=== PATIENT | female | born 1950 | race Caucasian/White ===

== ENCOUNTER → 2016-12-24 | Outpatient (CLI) | payer OTHER, MEDICARE ==
[~2016-12-24] MED LIST: ACET-732 PO; ALLO100T51 PO; AMLO5TAB2 PO; ATEN50TA PO; CALC0.5C2 PO; FURO-33 PO; HYDR-4074 PO; METO10TA PO; OMEP-122 PO; ROSU10TA PO; [UNRECOGNIZED DRUG - CODE] TP
[2016-12-24 09:50] LABS: BASOPHILS % (AUTO) 0.2 % (0-2); EOSINOPHILS # (AUTO) 0.4 T/MM3 (0-0.5); EOSINOPHILS % (AUTO) 4.1 % (0-4); HGB - HEMOGLOBIN 13.2 GM/DL (12-16); IMMATURE GRANULOCYTE # (AUTO) 0.02 T/MM3 (0.00-0.03); IMMATURE GRANULOCYTE % (AUTO) 0.2 % (0.0-0.5); LYMPHOCYTES % (AUTO) 35.6 % (23-45); MEAN CORPUSCULAR HGB 30.8 UUG (26-34); MEAN CORPUSCULAR HGB CONC(MCHC 32.2 GM/DL (31-37); MEAN CORPUSCULAR VOLUME 95.8 UM3 (80-100); MEAN PLATELET VOLUME 11.2 UM3 (9.4-12.4); MONOCYTES # (AUTO) 0.8 T/MM3 (0-0.8); MONOCYTES % (AUTO) 9.3 % (0-9.0); NEUTROPHILS #(AUTO)-ABSOLUTE 4.3 T/MM3 (1.8-7.7); NEUTROPHILS % (AUTO) 50.6 % (33-66); RED BLOOD COUNT 4.28 M/MM3 (4.00-5.20); WBC - WHITE BLOOD COUNT 8.5 T/MM3 (4.5-11.0)
[2016-12-24 09:57] LABS: HEMOGLOBIN A1C 7.2 % (6.1-7.9)
[2016-12-24 09:59] LABS: ALBUMIN 3.9 G/DL (3.5-5.0); ALBUMIN/GLOBULIN RATIO 1.1 RATIO (1.1-2.2); ALKALINE PHOSPHATASE 167 U/L (38-126); ALT (SGPT) 30 U/L (9-52); ANION GAP 13 MEQ/L (5-15); AST (SGOT) 22 U/L (14-36); BUN/CREATININE RATIO 24 RATIO (6-26); CALCIUM 8.8 MG/DL (8.4-10.2); CHLORIDE 110 MEQ/L (98-107); CO2 - CARBON DIOXIDE 22 MEQ/L (22-30); CREATININE 2.5 MG/DL (0.7-1.2); GLOMERULAR FILTRATION RATE 19; GLUCOSE 152 MG/DL (65-110); POTASSIUM 4.7 MEQ/L (3.6-5); SODIUM 145 MEQ/L (134-144); TOTAL PROTEIN 7.6 G/DL (6.3-8.2)
[2016-12-24 10:08] LABS: PROBNP 350 PG/ML (0-175)
== END ==
LOC: LABN 12-23 21:00
PROVIDERS: ATTEND Family Medicine
DX: I10 Essential (primary) hypertension (principal); E11.9 Type 2 diabetes mellitus without complications; N18.4 Chronic kidney disease, stage 4 (severe)
CPT/HCPCS: 80053; 83036; 83880; 85025

== ENCOUNTER → 2016-12-30 | Outpatient (CLI) | payer OTHER, MEDICARE ==
[~2016-12-30] MED LIST changes: +BISA-72 PO; +FURO-153 PO; +METO-230 PO; +ONDA8TAB5; +SENN8.6T12 PO; +SERT100T PO; +TRAM50TA4 PO
[2016-12-30 16:26] LABS: ANION GAP 13 MEQ/L (5-15); BUN/CREATININE RATIO 22 RATIO (6-26); CALCIUM 9.3 MG/DL (8.4-10.2); CHLORIDE 110 MEQ/L (98-107); CO2 - CARBON DIOXIDE 23 MEQ/L (22-30); CREATININE 2.2 MG/DL (0.7-1.2); GLOMERULAR FILTRATION RATE 22; GLUCOSE 144 MG/DL (65-110); POTASSIUM 5.4 MEQ/L (3.6-5); SODIUM 146 MEQ/L (134-144)
[2016-12-30 16:35] LABS: PROBNP 573 PG/ML (0-175)
== END ==
LOC: LABN 16:12 → EDSTATUS 01-12 13:33
PROVIDERS: ATTEND Family Medicine
DX: I10 Essential (primary) hypertension (principal); M62.81 Muscle weakness (generalized)
CPT/HCPCS: 80048; 83880

== ENCOUNTER → 2017-01-02 | Outpatient (CLI) | payer OTHER, MEDICARE ==
[~2017-01-02] MED LIST changes: -BISA-72 PO; -FURO-153 PO; -METO-230 PO; -ONDA8TAB5; -SENN8.6T12 PO; -SERT100T PO; -TRAM50TA4 PO
[2017-01-02 09:42] LABS: BLOOD, URINE 1+ (NEGATIVE); COLOR,URINE YELLOW (YELLOW); LEUKOCYTE ESTERASE ,URINE 2+ (NEGATIVE); NITRITE,URINE POSITIVE (NEGATIVE); UROBILINOGEN,URINE 0.2 EU/DL (NORMAL)
[2017-01-02 10:01] LABS: BACTERIA,URINE 3+ (NEGATIVE); WBC CLUMPS,URINE MODERATE; WBC,URINE 30-50 /HPF (0-5)
== END ==
LOC: LABN 09:32
PROVIDERS: ATTEND Family Medicine
DX: I12.9 Hypertensive chronic kidney disease with stage 1 through stage 4 chronic kidney disease, or unspecified chronic kidney disease (principal); N18.4 Chronic kidney disease, stage 4 (severe)
CPT/HCPCS: 81001; 87077; 87086; 87186

== ENCOUNTER 2017-01-14 07:35 | Inpatient (IN) | payer MEDICARE, OTHER ==
[2017-01-14] VITALS (8 sets, daily range): BP systolic 112–146; BP diastolic 63–68; PULSE 73–91; RESP 18–24; TEMP 98.5–99.7; O2SAT 91–100; Ht 167.6 cm; Wt 162.3 kg
[~2017-01-14] VITALS: Ht 167.6 cm; Wt 162.3 kg
--- OUTSIDE RECORDS SUMMARY | 2017-01-14 07:39 | XMS REPORT | Referral Summary ---
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 Discharge Disposition: 01-Home or Self Care Attending Physician: Philip Chaidez MD Admitting Physician: Philip Chaidez MD Vital Signs Most recent to 1 oldest [Reference Range]: Temperature Tympanic 37.4 degC [36.6-38.1 degC] (07/18/15 10:18 AM) Peripheral Pulse 76 bpm Rate [60-100 bpm] (07/18/15 10:18 AM) Blood Pressure 144/96 mmHg [90-140/60-90 mmHg] *HI* (07/18/15 10:18 AM) Problem List Condition Effective Dates Status Health Status Informant Actinic Active keratosis(Confirmed) Knee Active bursitis(Confirmed) Carbuncle, abdominal Active wall(Confirmed) Back pain, Active chronic(Confirmed) Chronic kidney Active disease stage 4 (disorder)(Confirmed ) CKD (chronic kidney Active disease) stage 4, GFR 15-29 ml/min(Confirmed) CKD stage 4 due to Active type 2 diabetes mellitus(Confirmed) Mixed Active dyslipidemia(Confirm ed) Pedal Active edema(Confirmed) Essential Active hypertension (disorder)(Confirmed ) Gout(Confirmed) Active Hyperphosphatemia(Co Active nfirmed) HTN Active (hypertension)(Confi rmed) Incontinence(Confirm Active ed) Mixed hyperlipidemia Active (disorder)(Confirmed ) Morbid obesity Active (disorder)(Confirmed ) Severe obesity (BMI Active 35.0-39.9)(Confirmed ) OA Active (osteoarthritis)(Con firmed) Sleep Active apnea(Confirmed) Type 2 diabetes with Active nephropathy(Confirme d) Umbilical Active polyp(Confirmed) Allergies, Adverse Reactions, Alerts Substance Reaction Severity Status lisinopril cough Active simvastatin MYALGIAS Active Medications allopurinol 100 mg oral tablet 2 tabs, Oral, Daily, 0 Refill(s) Start Date: 03/30/14 Status: Ordered amLODIPine 10 mg oral tablet 5 mg 0.5 tabs, Oral, Daily, 0 Refill(s) Start Date: 03/30/14 Status: Ordered atenolol 50 mg oral tablet 75 mg 1.5 tabs, Oral, BID, Monitor pulse-should be greater than 55 beats per minute, 0 Refill(s) Start Date: 03/30/14 Status: Ordered calcitriol 0.25 mcg oral capsule 1 caps, Oral, Daily, 0 Refill(s), Indication: CKD. Start Date: 03/30/14 Status: Ordered Lasix 20 mg oral tablet 20 mg 1 tabs, Oral, Daily, PER DR. HAZEL, 0 Refill(s) Start Date: 12/20/15 Status: Ordered metoclopramide 10 mg oral tablet 10 mg 1 tabs, Oral, QIDACHS, GERD/Heartburn, 0 Refill(s) Start Date: 03/30/14 Status: Ordered [place] 7.5 mg-325 mg oral tablet 1 tabs, Oral, q8hr, as needed for pain, not to exceed 3 per day must last one month, # 90 tabs, 0 Refill(s) Start Date: 01/16/16 Status: Ordered omeprazole 20 mg oral delayed release capsule 1 caps, Oral, Daily, 0 Refill(s) Start Date: 03/30/14 Status: Ordered rosuvastatin 10 mg oral tablet See Instructions, 1 tab every friday, friday, and friday, # 14 tabs, 2 Refill (s) Start Date: 08/10/15 Status: Ordered Tylenol Arthritis Caplet 1,300 mg, Oral, q8hr, Arthritis, 0 Refill(s) Start Date: 03/30/14 Status: Ordered Results No data available for this section Immunizations Vaccine Date Refusal Reason tetanus/diphth/pertuss (Tdap) adult/adol 06/13/13 influenza virus vaccine, inactivated 07/18/15 influenza virus vaccine, inactivated 07/18/15 influenza virus vaccine, live 09/28/13 pneumococcal 13-valent conjugate vaccine 07/18/15 pneumococcal 23-polyvalent vaccine 10/13/10 tetanus-diphth toxoids (Td) adult/adol 06/09/97 zoster vaccine live 06/13/13 Procedures Procedure Date Related Diagnosis Body Site Diabetic eye exam1 11/04/13 Arthroscopy of knee Exploratory laparotomy2 Small bowel resection Vaginal hysterectomy shalom salpingo-oophorectomy3 1teleretinal imaging 2with colonoscopy d/t adhesions 3Bilateral salpingo oopherectomy Social History Social History Type Response Smoking Status Never smoker Assessment and Plan Extracted from: Title: Office Visit Note Author: Philip Chaidez MD Date: 07/18/15 Assessment/Plan Back pain, chronic CKD stage 4 due to type 2 diabetes mellitus HTN (hypertension) Mixed hyperlipidemia Morbid obesity Type 2 diabetes with nephropathy plan: Were arranging for a Prevnar vaccination and a flu shot. Your blood pressures a little high but I think it's related to your pain in her back. I reviewed your most recent metabolic panel and your GFR is in the low 30s. Currently you're seeing Dr. Hazel. For now I think we should continue all current medications and we discussed the need for youto find a new primary care physician. Your next office visit med checkup should be 3 months.
--- OUTSIDE RECORDS SUMMARY | 2017-01-14 07:39 | XMS REPORT | Continuity of Care Document ---
Author Author Wilian Sosa MA Ambulatory Address Unknown Phone Unavailable Care Team Providers Care Spring Layer Name Role Phone Erica Quintanaareli HAM[place] Unavailable Payers Payer name Insurance type Covered republican ID Authorization(s) Unknown Problems Condition Effective Dates (start - stop) Clinical Status Coccydynia - *Acute Chronic low back pain - *Chronic Other chronic pain - *Chronic Morbid obesity - *Chronic Chronic kidney disease, unspecified - *Chronic Diabetes Mellitus Type 2, Uncomplicated - *Chronic Obesity, Morbid - *Chronic Lumbago - *Chronic Tinea - *Worse Other and unspecified hyperlipidemia - *Chronic Hypertension, Unspecified - *Chronic Vaginitis - Episodic Lumbago - *Chronic Diabetes Mellitus Type 2, Uncomplicated - *Controlled Hypertension, Unspecified - *Controlled Mixed dyslipidemia - *Fair Control Chronic kidney disease, unspecified - *Stable Obesity, Morbid - *Chronic Sleep Apnea, Obstructive - Uncertain Obesity, Morbid - Uncertain Family History Family Member Diagnosis Age At Onset Status Mother (Unknown) natural causes Yes Sister (Unknown) Hypertension Yes Brother (Unknown) CAD Yes son (Unknown) Asthma Yes Father (Unknown) natural causes Yes son (Unknown) Hypertension Yes Brother (Unknown) Diabetes Yes Brother (Unknown) Cancer - brain Yes Social History Social History Element Description Quantity Unknown Allergies, Adverse Reactions, Alerts Substance Reaction Severity Status Unknown Medications Medication Instructions Dosage Effective Dates (start - stop) Status Lortab 5 mg-500 mg tablet take 1 tablet by oral route 3 times every day for pain prn. Max acetaminophen 3000mg. Max 3/day - No Longer Active Lortab 7.5 mg-500 mg tablet take 1 tablet by mouth 3 x at day as needed. Max 3/day. - No Longer Active Lortab 7.5 mg-500 mg tablet take 1 tablet by mouth 3 x at day as needed. Max 3/day. - No Longer Active Lortab 7.5 mg-500 mg tablet take 1 tablet by mouth 3 x at day as needed. Max 3/day. - No Longer Active losartan 100 mg tablet take 1 tablet (100MG) by oral route every day 100 MG - Active metoclopramide 10 mg tablet take 1 tablet by mouth 30 minutes before meals and at bedtime if needed for heartburn - Active calcitriol 0.25 mcg capsule take 1 capsule (0.25MCG) by oral route friday, friday, and friday - Active allopurinol 100 mg tablet take 2 tablet (200MG) by oral route every day 200 MG - Active furosemide 40 mg tablet take 1 tablet (40MG) by oral route 2 times every day 40 MG - Active atenolol 50 mg tablet take 1 and 1/2 tab by mouth twice a day Monitor pulse should be >55 beats per minute - Active glyburide 1.25 mg tablet take 1 tablet (1.25MG) by oral route every day - Active amlodipine 10 mg tablet take 1 tablet (10MG) by oral route every day 10 MG - Active omeprazole 20 mg capsule,delayed release take 1 capsule (20MG) by oral route - Active Arthritis Pain Relief (acetaminophen) ER 650 mg tablet,ext. release take 2 tablet (1300MG) by oral route every 8 hours PRN - Active PhosLo 667 mg capsule 1 t, po, qpm - Active simvastatin 20 mg tablet take 1.5 Tablet by Oral route every day 0 2012 - Active Lortab 7.5 mg-500 mg tablet take 1 tablet by mouth 3 x at day as needed. Max 3/day. - Active Immunizations Vaccine Date Status Comments Unknown Results Test Name Date and Time Measure Units Reference Range Abnormal Flag Comments Unknown Vital Signs Date / Time: Height Weight Pulse Rate Blood Pressure Temperature /13:38:00 84 /min 134/70 mm[Hg] 98.8 F Procedures Procedure Date Unknown Encounters Encounter Location Date Patient Visit [facility] Patient Visit [facility] Patient Visit [facility] Patient Visit [facility] Patient Visit [facility] Advance Directives Directive Effective Date Unknown
--- OUTSIDE RECORDS SUMMARY | 2017-01-14 07:39 | XMS REPORT | Referral Summary ---
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 Discharge Diagnosis: Morbid obesity Discharge Diagnosis: Chronic kidney disease stage 4 Discharge Disposition: Home or Self Care Attending Physician: Marisel Mullins APRN Admitting Physician: Marisel Mullins APRN Vital Signs Most recent to 1 oldest [Reference Range]: Temperature Tympanic 37.2 degC [36.6-38.1 degC] (10/28/14 8:28 AM) Peripheral Pulse 72 bpm Rate [60-100 bpm] (10/28/14 8:28 AM) Respiratory Rate 20 br/min [14-20 br/min] (10/28/14 8:28 AM) Blood Pressure 162/96 mmHg [90-140/60-90 mmHg] *HI* (10/28/14 8:28 AM) Problem List Condition Effective Dates Status Health Status Informant Actinic Active keratosis(Confirmed) Knee Active bursitis(Confirmed) Carbuncle, abdominal Active wall(Confirmed) Back pain, Active chronic(Confirmed) Chronic kidney Active disease stage 4 (disorder)(Confirmed ) Pedal Active edema(Confirmed) Essential Active hypertension (disorder)(Confirmed ) Gout(Confirmed) Active Hyperphosphatemia(Co Active nfirmed) Mixed hyperlipidemia Active (disorder)(Confirmed ) Morbid obesity Active (disorder)(Confirmed ) OA Active (osteoarthritis)(Con firmed) Sleep Active apnea(Confirmed) Type 2 diabetes with Active nephropathy(Confirme d) Umbilical Active polyp(Confirmed) Allergies, Adverse Reactions, Alerts Substance Reaction Severity Status simvastatin MYALGIAS Active Medications allopurinol 100 mg oral tablet 2 tabs, Oral, Daily, 0 Refill(s) Start Date: 03/30/14 Status: Ordered amLODIPine 10 mg oral tablet 1 tabs, Oral, Daily, 0 Refill(s) Start Date: 03/30/14 Status: Ordered atenolol 50 mg oral tablet 1.5 tabs, Oral, Daily, Monitor pulse-should be greater than 55 beats per minute , 0 Refill(s) Special Instructions: Monitor pulse-should be greater than 55 beats per minute Start Date: 03/30/14 Status: Ordered calcitriol 0.25 mcg oral capsule 1 caps, Oral, Daily, 0 Refill(s), Indication: CKD. Start Date: 03/30/14 Status: Ordered furosemide 40 mg oral tablet 1 tabs, Oral, Daily, # 90 tabs, 0 Refill(s) Start Date: 04/04/14 Status: Ordered metoclopramide 10 mg oral tablet 1 tabs, Oral, QIDACHS, 0 Refill(s) Start Date: 03/30/14 Status: Ordered [place] 7.5 mg-325 mg oral tablet 1 tabs, Oral, q8hr, as needed for pain, not to exceed 3 per day must last one month MAILED TO [facility], # 90 tabs, 2 Refill(s) Special Instructions: not to exceed 3 per day must last one month MAILED TO [facility] Start Date: 10/20/14 Status: Ordered omeprazole 20 mg oral delayed release capsule 1 caps, Oral, Daily, 0 Refill(s) Start Date: 03/30/14 Status: Ordered rosuvastatin 10 mg oral tablet See Instructions, 1 tab every friday, friday, and friday patient needs lab /appt, # 30 tabs, 3 Refill(s) Special Instructions: 1 tab every friday, friday, and friday patient needs lab/appt Start Date: 04/04/14 Status: Ordered Tylenol Arthritis Caplet 1,300 mg, Oral, q8hr, Arthritis, 0 Refill(s) Start Date: 03/30/14 Status: Ordered Results No data available for this section Immunizations Vaccine Date Refusal Reason tetanus/diphth/pertuss (Tdap) adult/adol 06/13/13 influenza virus vaccine, live 09/28/13 pneumococcal 23-polyvalent vaccine 10/13/10 zoster vaccine live 06/13/13 Procedures Procedure Date Related Diagnosis Body Site Diabetic eye exam1 11/04/13 Arthroscopy of knee Exploratory laparotomy2 Small bowel resection Vaginal hysterectomy3 1teleretinal imaging 2with colonoscopy d/t adhesions 3Bilateral salpingo oopherectomy Social History Social History Type Response Smoking Status Never smoker Assessment and Plan Extracted from: Title: Office Visit Note Author: Marisel Mullins EMBEDDED SOFTWARE ENGINEER Date: 10/28/14 Assessment/Plan Chronic kidney disease stage 4 Continue to follow with Dr. Rod Taylor. Has an appointment at the beginning of November. Continue Lasix 40 mg daily for now. Get labs from [facility]. Ordered: Office Visit Level 4 Est 12540 Essential hypertension Blood pressure is elevated today. I suspect is related to fluid retention. No medication changes today. May benefit from decreasing the Norvasc in regards to her pedal edema but hesitate to do that today. Ordered: Office Visit Level 4 Est 66823 Morbid obesity Encouraged healthy diet. Low salt diet. Discussed health sodium increase his fluid retention. Encouraged activity which will help for osteoarthritis pain and improve her circulation. Patient is planning a long car trip. Encouraged her to get out and walk every 2 hours. Ordered: Office Visit Level 4 Est 37583 OA (osteoarthritis) Continue same. Pedal edema Geoff wraps from toes to knees. Applied by nursing. Encouraged her to do this daily at home. Patient thinks her will be able to help her with this. Encouraged her to elevate her feet from our morning and afternoon above her heart to improve the edema. Patient is wanting to increase Lasix. Ordered: Office Visit Level 4 Est 74215 Type 2 diabetes with nephropathy Review lab from [facility] and make medication adjustments if needed. Plan follow-up in the clinic in 3 months. Ordered: Office Visit Level 4 Est 06716 Addendum Lab is available for review from September 14, 2014. Liver enzymes normal. by Electrolytes normal. Creatinine 1.74. GFR 35. Potassium 4.9. CBC within normal [facility], limits. Hemoglobin A1c is 5.6. Urine microalbumin ratio greater than 264.: Marisel Nielsen EMBEDDED SOFTWARE ENGINEER on 28 October 2014 16:36:42 SEAM FELLER
--- OUTSIDE RECORDS SUMMARY | 2017-01-14 07:39 | XMS REPORT | Continuity of Care Document ---
Author Author [facility] Organization [facility] Address Unknown Phone Unavailable Allergies Medications Problems Procedures Results Encounters ACCT No. Visit Date/Time Discharge Status Pt. Type Provider Facility Loc./Unit Complaint [id number] 08/04/2013 13:17:00 08/04/2013 23 :59:59 CLS Outpatient
--- OUTSIDE RECORDS SUMMARY | 2017-01-14 07:39 | XMS REPORT | Referral Summary ---
Author Author [facility] Organization [facility] Address Unknown Phone Unavailable Care Team Providers Care Qa Developer Name Role Phone Gill Tolliver Primary Care Physician [phone] Encounter VC Date(s): 12/20/15 - 12/20/15 [facility] [address] [place] [id number]- Discharge Disposition: 01-Home or Self Care Attending Physician: Ramiro Tolliver MD Admitting Physician: Ramiro Tolliver MD Vital Signs Most recent to 1 oldest [Reference Range]: Temperature Tympanic 36.8 degC [36.6-38.1 degC] (12/20/15 10:07 AM) Peripheral Pulse 73 bpm Rate [60-100 bpm] (12/20/15 10:07 AM) Blood Pressure 118/64 mmHg [90-140/60-90 mmHg] (12/20/15 10:07 AM) SpO2 91 % (12/20/15 10:07 AM) Problem List Condition Effective Dates Status [...] 0 Refill(s) Start Date: 03/30/14 Status: Ordered [place] 7.5 mg-325 mg oral tablet 1 tabs, Oral, q8hr, as needed for pain, not to exceed 3 per day must last one month No further refills, # 90 tabs, 0 Refill(s) Start Date: 11/07/15 Status: Ordered omeprazole 20 mg oral delayed [...] smoker Assessment and Plan Extracted from: Title: Ambulatory Patient Education Author: Ramiro Tolliver MD Date: Family Medicine Bariatric Surgery Information Bariatric surgery, also called weight loss surgery, is a procedure that helps you lose weight. You may consider or your health care provider may suggest bariatric surgery if: You are severely obese and have been unable to lose weight through diet and exercise. You have health problems related to obesity, such as: Type 2 diabetes. Heart disease. Lung disease. HOW DOES BARIATRIC SURGERY HELP ME LOSE WEIGHT? Bariatric surgery helps you lose weight by decreasing how much food your body absorbs. This is done by closing off part of your stomach to make it smaller. This restricts the amount of food your stomach can hold. Bariatric surgery can also change your body's regular digestive process, so that food bypasses the parts of your body that absorb calories and nutrients. If you decide to have bariatric surgery, it is important to continue to eat a healthy diet and exercise regularly after the surgery. WHAT ARE THE DIFFERENT KINDS OF BARIATRIC SURGERY? There are two kinds of bariatric surgeries: Restrictive surgeries make your stomach smaller. They do not change your digestive process. The smaller the size of your new stomach, the less food you can eat. There are different types of restrictive surgeries. Malabsorptive surgeries both make your stomach smaller and alter your digestive process so that your body processes less calories and nutrients. These are the most common kind of bariatric surgery. There are different types of malabsorptive surgeries. WHAT ARE THE DIFFERENT TYPES OF RESTRICTIVE SURGERIES? Adjustable Gastric Banding In this procedure, an inflatable band is placed around your stomach near the upper end. This makes the passageway for food into the rest of your stomach much smaller. The band can be adjusted, making it tighter or looser, by filling it with salt solution. Your surgeon can adjust the band based on how are you feeling and how much weight you are losing. The band can be removed in the future. Vertical Banded Gastroplasty In this procedure, melissa are used to separate your stomach into two parts, a small upper pouch and a bigger lower pouch. This decreases how much food you can eat. Sleeve Gastrectomy In this procedure, your stomach is made smaller. This is done by surgically removing a large part of your stomach. When your stomach is smaller, you feel full more quickly and reduce how much you eat. WHAT ARE THE DIFFERENT TYPES OF MALABSORPTIVE SURGERY? Aj-en-Y Gastric Bypass (RGB) This is the most common weight loss surgery. In this procedure, a small stomach pouch is created in the upper part of your stomach. Next, this small stomach pouch is attached directly to the middle part of your small intestine. The farther down your small intestine the new connection is made, the fewer calories and nutrients you will absorb. Biliopancreatic Diversion with Duodenal Switch (BPD/DS) This is a multi-step procedure. In this procedure, a large part of your stomach is removed, making your stomach smaller. Next, this smaller stomach is attached to the lower part of your small intestine. Like the RGB surgery, you absorb fewer calories and nutrients the farther down your small intestine the attachment is made. WHAT ARE THE RISKS OF BARIATRIC SURGERY? As with any surgical procedure, each type of bariatric surgery has its own risks. These risks also depend on your age, your overall health, and any other medical conditions you may have. When deciding on bariatric surgery, it is very important to: Talk to your health care provider and choose the surgery that is best for you. Ask your health care provider about specific risks for the surgery you choose. FOR MORE INFORMATION [place] [employer]abolic [employer] Bariatric [employer]: www.asmbs.org Weight-control Information Network (WIN): win.niddk.nih.gov This information is not intended to replace advice given to you by your health care provider. Make sure you discuss any questions you have with your health care provider. Document Released: 09/29/2006 Document Revised: 07/18/2015 Document Reviewed: [employer] Patient Information 2015 [employer]. No follow up information was provided. Extracted from: Title: CKD-4, DM, HTN, CERDA Author: Ramiro Tolliver MD Date: 12/20/15 Impression and Plan Diagnosis CKD (chronic kidney disease) stage 4, GFR 15-29 ml/min (ZRX37-SX N18.4, Working , Medical). HTN (hypertension) (BGZ19-AT I10, Working, Medical). Type 2 diabetes with nephropathy (LEN35-TE E11.21, Working, Medical). Mixed hyperlipidemia (disorder) (FBR49-AC E78.2, Working, Medical). Dyspnea on exertion (VCU30-CP R06.09, Working, Medical). Morbid obesity (NVO21-WK E66.01, Working, Medical). Chronic low back pain (KAV30-ME M54.5, Working, Medical). Primary osteoarthritis of both knees (OCO07-NB M17.0, Working, Medical). Lymphedema of leg (ASO56-FI I89.0, Working, Medical). MITCH on CPAP (CXN37-PD G47.33, Working, Medical). Plan: 1) You need to see a development coach for evaluation of your new-onset shortnes of air with exertion. Unfortunately, you missed your previously scheduled cardiology appointment. 2) I will continue to prescribe your [place], as long as you don't require an increase in your dose. 3) Narcotic agreement signed today. 4) See me in one month for further evaluation, and as needed. 5) Start Aspirin 81 mg daily, due to the concern for possible atypical angina. 6) Continue your routine meds otherwise. 7) [facility] Weight Management program recommended for medical weight loss. Bariatric surgery might also be an option, if the development coach determines that you are safe from a CV point of view.. Orders Orders (Selected) Outpatient Orders Ordered Office Visit Level 4 Est 38815: . Dx/Order Association Plan: Diagnosis: CKD (chronic kidney disease) stage 4, GFR 15-29 ml/min Comment: Diagnosis: Chronic low back pain Comment: Ordered: Office Visit Level 4 Est 04868; 12/20/15 10:38:00 TANK BUILDER, Chronic low back pain | Primary osteoarthritis of both knees | Dyspnea on exertion | HTN (hypertension) Diagnosis: Dyspnea on exertion Comment: Ordered: Office Visit Level 4 Est 62890; 12/20/15 10:38:00 TANK BUILDER, Chronic low back pain | Primary osteoarthritis of both knees | Dyspnea on exertion | HTN (hypertension) Diagnosis: HTN (hypertension) Comment: Ordered: Office Visit Level 4 Est 36506; 12/20/15 10:38:00 TANK BUILDER, Chronic low back pain | Primary osteoarthritis of both knees | Dyspnea on exertion | HTN (hypertension) Diagnosis: Lymphedema of leg Comment: Diagnosis: Mixed hyperlipidemia (disorder) Comment: Diagnosis: Morbid obesity Comment: Diagnosis: MITCH on CPAP Comment: Diagnosis: Primary osteoarthritis of both knees Comment: Ordered: Office Visit Level 4 Est 47826; 12/20/15 10:38:00 TANK BUILDER, Chronic low back pain | Primary osteoarthritis of both knees | Dyspnea on exertion | HTN (hypertension) Diagnosis: Type 2 diabetes with nephropathy Comment: End of Orders ."
--- OUTSIDE RECORDS SUMMARY | 2017-01-14 07:39 | XMS REPORT | Referral Summary ---
Author Author [facility] Organization [facility] Address Unknown Phone Unavailable Care Team Providers Care Power Transformer Repairer Name Role Phone No PCP, States Primary Care Physician [phone] Encounter Date(s): 11/07/15 - 11/07/15 [facility] [address] [place] [id number] Discharge Diagnosis: Gout Discharge Diagnosis: Morbid obesity Discharge Diagnosis: Back pain, chronic Discharge Diagnosis: Pedal edema Discharge Diagnosis: HTN (hypertension) Discharge Diagnosis: CKD stage 4 due to type 2 diabetes mellitus 08-OCT-2015 18:37:48<$> Discharge Disposition: 01-Home or Self Care Attending Physician: Marisel Mullins APRN Admitting Physician: Marisel Mullins APRN Vital Signs Most recent to 1 oldest [Reference Range]: Temperature Tympanic 37.0 degC [36.6-38.1 degC] (11/07/15 1:27 PM) Peripheral Pulse 80 bpm Rate [60-100 bpm] (11/07/15 1:27 PM) Respiratory Rate 24 br/min [14-20 br/min] *HI* (11/07/15 1:27 PM) Blood Pressure 154/100 mmHg [90-140/60-90 mmHg] *HI* (11/07/15 1:27 PM) Problem List Condition Effective Dates Status Health Status Informant Actinic Active keratosis(Confirmed) Knee Active bursitis(Confirmed) Carbuncle, abdominal Active wall(Confirmed) Back pain, Active chronic(Confirmed) Chronic kidney Active disease stage 4 (disorder)(Confirmed ) CKD stage 4 due to Active type [...] 55 beats per minute , 0 Refill(s) Start Date: 03/30/14 Status: Ordered calcitriol 0.25 mcg oral capsule 1 caps, Oral, Daily, 0 Refill(s), Indication: CKD. Start Date: 03/30/14 Status: Ordered furosemide 40 mg oral tablet 1 tabs, Oral, Daily, # 90 tabs, 0 Refill(s) Start Date: 04/04/14 Status: Ordered metoclopramide 10 mg oral tablet 10 mg 1 tabs, Oral, QIDACHS, GERD/Heartburn, 0 Refill(s) Start Date: 03/30/14 Status: Ordered Maribel 7.5 mg-325 mg oral tablet 1 tabs, [...] Refill(s) Start Date: 03/30/14 Status: Ordered Results Chemistry Most recent to 1 oldest [Reference Range]: Sodium Lvl [135-144 142 mEq/L mEq/L] (11/07/15 12:10 PM) Potassium Lvl 5.6 mEq/L [3.5-5.2 mEq/L] *HI* (11/07/15 12:10 PM) Chloride [99-111 112 mEq/L mEq/L] *HI* (11/07/15 12:10 PM) CO2 [22-31 mEq/L] 24 mEq/L (11/07/15 12:10 PM) AGAP [3-20] 6 (11/07/15 12:10 PM) BUN [10-20 mg/dL] 30 mg/dL *HI* (11/07/15 12:10 PM) Glucose Lvl [70-99 93 mg/dL mg/dL] (11/07/15 12:10 PM) Creatinine Lvl 1.80 mg/dL [0.57-1.11 mg/dL] *HI* (11/07/15 12:10 PM) eGFR [>60 mL/min] 28 mL/min 1 *ABN* (11/07/15 12:10 PM) Calcium Lvl 8.7 mg/dL [8.9-10.5 mg/dL] *LOW* (11/07/15 12:10 PM) Uric Acid [2.6-6.0 5.6 mg/dL mg/dL] (11/07/15 12:10 PM) 1Result Comment: Multiply eGFR results by 1.21 for race. Urinalysis Most recent to 1 oldest [Reference Range]: UA Color Yellow (11/07/15 2:30 PM) UA Appear Sl Cloudy (11/07/15 2:30 PM) UA pH [5.0-8.0] 5.5 (11/07/15 2:30 PM) UA Leuk Est Negative [Negative] (11/07/15 2:30 PM) UA Nitrite Negative [Negative] (11/07/15 2:30 PM) UA Protein Pos 3+ 1 [Negative] (11/07/15 2:30 PM) UA Glucose Negative [Negative] (11/07/15 2:30 PM) UA Ketones Negative [Negative] (11/07/15 2:30 PM) UA Urobilinogen 0.2 mg/dL [<=1.0 mg/dL] (11/07/15 2:30 PM) UA Bili [Negative] Negative (11/07/15 2:30 PM) UA Blood [Negative] Pos 1+ *ABN* (11/07/15 2:30 PM) UA Spec Grav 1.025 [1.003-1.030] (11/07/15 2:30 PM) Type Clean Catch (11/07/15 2:30 PM) UA WBC [0-4] 0-2 (11/07/15 2:30 PM) UA RBC [0-2] None seen (11/07/15 2:30 PM) Epithelial Cells 10-20 (11/07/15 2:30 PM) UA Bacteria Moderate *ABN* (11/07/15 2:30 PM) 1Result Comment: Critical Protein rechecked and called to Wilian/Marisel @ [id number] by pls. Immunizations Vaccine Date Refusal Reason tetanus/diphth/pertuss (Tdap) [...] and Plan Extracted from: Title: Office Visit Note-back pain Author: Marisel Mullins HAT SIZER Date: Assessment/Plan Back pain, chronic Encourage patient to increase physical activitywhich may alleviate some back pain. Offered physical therapy. Patient not really interested. Refill provided for Maribel No. 90which would be one months supply. Discussed with her I would not provide any further refills. She would need to reestablish with different primary care providerfor further refills. She voices understanding.. List of providers provided for her. Ordered: Office Visit Level 4 Est 38048 CKD stage 4 due to type 2 diabetes mellitus 08-OCT-2015 18:37:48<$> Under the care of Dr. Rod Taylor. Ordered: Basic Metabolic Panel Office Visit Level 4 Est 71452 Flank pain Urinalysis today. We'll call her results. Ordered: Urinalysis with Culture if Indicated Gout Uric acid level today. HTN (hypertension) Elevated today at office visit. Controlled at home. Blood pressures greater than 140/90to contact the office so we can adjust medications. Ordered: Office Visit Level 4 Est 33062 Morbid obesity Encouraged healthy eating and weight loss. Pedal edema We'll forward a chemistry results to Dr. Grover. Encourage patient to contact 's office and report her increased weight and fluid retention. I would leave diuretic therapy to him considering her renal function. Shevoices understanding and will do this. Ordered: Office Visit Level 4 Est 67609 Orders: HYDROcodone-acetaminophen, 1 tabs, Oral, q8hr, as needed for pain, not to exceed 3 per day must last one month No further refills, # 90 tabs, 0 Refill(s)
--- OUTSIDE RECORDS SUMMARY | 2017-01-14 07:39 | XMS REPORT | Referral Summary ---
Author Author [facility] Organization [facility] Address Unknown Phone Unavailable Care Team Providers Care Land Survey Technician Name Role Phone Gia Chaidez Primary Care Physician [phone] Encounter VC Date(s): 07/18/15 - 07/18/15 [facility] [address] [place] [id number] Discharge Diagnosis: Mixed hyperlipidemia Discharge Diagnosis: HTN [...] 0 Refill(s) Start Date: 03/30/14 Status: Ordered [place] 7.5 mg-325 mg oral tablet 1 tabs, Oral, q8hr, as needed for pain, not to exceed 3 per day must last one month MAILED TO [facility], # 90 tabs, 0 Refill(s) Start Date: 07/04/15 Status: Ordered omeprazole 20 mg oral delayed release capsule 1 caps, Oral, Daily, 0 Refill(s) Start Date: 03/30/14 Status: Ordered rosuvastatin 10 mg oral tablet See Instructions, 1 tab every friday, friday, and friday, # 14 tabs, 0 Refill (s) Start Date: 07/04/15 Status: Ordered Tylenol Arthritis Caplet 1,300 mg, [...] in the low 30s. Currently you're seeing . For now I think we should continue all current medications and we discussed the need for youto find a new primary care physician. Your next office visit med checkup should be 3 months.
--- OUTSIDE RECORDS SUMMARY | 2017-01-14 07:40 | XMS REPORT | Referral Summary ---
Author Author [facility] Organization [facility] Address Unknown Phone Unavailable Care Team Providers Care Cook Pickled Meat Name Role Phone Gia Chaidez Primary Care Physician [phone] Encounter VC Date(s): 04/07/15 - 04/07/15 [facility] [address] [place] [id number] Discharge Disposition: 01-Home or Self Care Attending Physician: Philip Chaidez MD Admitting Physician: Philip Chaidez MD Vital Signs Most recent to 1 oldest [Reference Range]: Temperature Tympanic 37.1 degC [36.6-38.1 degC] (04/07/15 1:07 PM) Blood Pressure 146/98 mmHg [90-140/60-90 mmHg] *HI* (04/07/15 1:07 PM) Problem List Condition Effective Dates Status [...] 0 Refill(s) Start Date: 03/30/14 Status: Ordered [place] 7.5 mg-325 mg oral tablet 1 tabs, Oral, q8hr, as needed for pain, not to exceed 3 per day must last one month MAILED TO [facility], # 90 tabs, 0 Refill(s) Start Date: 10/02/15 Status: Ordered omeprazole 20 mg oral delayed [...] Visit Note Author: Philip Chaidez MD Date: 04/07/15 Assessment/Plan Back pain, chronic Chronic kidney disease stage 4 (disorder) Essential hypertension (disorder) Severe obesity (BMI 35.0-39.9) Type 2 diabetes with nephropathy Plan: We discussed strategies for losing weight. We discussed removing the sweet tea and drinks containing sugar. We discussed removing fats foods and fried foods from your diet. We discussed eating several small meals a day. I have set you up to see a dietitian. On a see back in 3 months. I think with some weight loss her blood pressure will come down. Continue all current medications for now. Follow-up in 3 months. If possible check your blood pressure at home once a week.
--- NOTE | 2017-01-14 07:45 | NUR ---
DR KEITH IN
--- OUTSIDE RECORDS SUMMARY | 2017-01-14 07:55 | XMS REPORT | Continuity of Care Document ---
Author Author [facility] Organization [facility] Address Unknown Phone Unavailable Allergies Medications Problems Procedures Results Encounters ACCT No. Visit Date/Time Discharge Status Pt. Type Provider Facility Loc./Unit Complaint [id number] 08/04/2013 13:17:00 08/04/2013 23 :59:59 CLS Outpatient
[2017-01-14 08:15] LABS: BASOPHILS % (AUTO) 0.1 % (0-2); EOSINOPHILS # (AUTO) 0.2 T/MM3 (0-0.5); EOSINOPHILS % (AUTO) 2.5 % (0-4); HCT - HEMATOCRIT 44.2 % (36-46); HGB - HEMOGLOBIN 14.2 GM/DL (12-16); IMMATURE GRANULOCYTE # (AUTO) 0.05 T/MM3 (0.00-0.03); IMMATURE GRANULOCYTE % (AUTO) 0.6 % (0.0-0.5); LYMPHOCYTES # (AUTO) 1.4 T/MM3 (1-4.8); LYMPHOCYTES % (AUTO) 16.1 % (23-45); MEAN CORPUSCULAR HGB CONC(MCHC 32.1 GM/DL (31-37); MEAN CORPUSCULAR VOLUME 96.5 UM3 (80-100); MONOCYTES # (AUTO) 0.1 T/MM3 (0-0.8); MONOCYTES % (AUTO) 1.5 % (0-9.0); NEUTROPHILS #(AUTO)-ABSOLUTE 7.1 T/MM3 (1.8-7.7); NEUTROPHILS % (AUTO) 79.2 % (33-66); RED BLOOD COUNT 4.58 M/MM3 (4.00-5.20); WBC - WHITE BLOOD COUNT 8.9 T/MM3 (4.5-11.0)
[2017-01-14] MEDS ORDERED: NORMAL SALINE 1,000 ML IV ONE (08:15)
[2017-01-14] MEDS ORDERED: ONDANSETRON 4mg/2ml INJECTION IV ONE (08:15)
[2017-01-14] MEDS ORDERED: ACETAMINOPHEN 650 MG SUPPOSITORY RECTALLY ONE ×2 (08:15→09:45)
--- NOTE | 2017-01-14 08:15 | ERPDOC ---
Departure Disposition Decision Date: Jan 14, 2017 Disposition Decision Time: 09:53 Disposition: 01 DISCHARGED HOME, SELF-CARE Impression Impression Impression: Primary Impression: Respiratory failure Chronicity: acute Respiratory failure complication: hypoxia Qualified Codes : J96.01 - Acute respiratory failure with hypoxia Additional Impressions: Sepsis Sepsis type: sepsis due to unspecified organism Qualified Codes: A41.9 - Sepsis, unspecified organism UTI (urinary tract infection) Urinary tract infection type: acute cystitis Hematuria presence: with hematuria Qualified Codes: N30.01 - Acute cystitis with hematuria Severity: Moderate Condition: Improved Seen By: Physician only Problems/Meds/Labs Reviewed?: Yes Medications reviewed and manag: Yes Follow up care ordered?: Yes Mental Status: Alert, Oriented HPI - Dyspnea General Chief Complaint: Dyspnea/Respdistress Stated Complaint: RESP Time Seen by Provider: 07:48 Source: patient (Patient presents to the ER in respiratory distress. Patient apparently wears CPaP at night, developed SOA this morning with reported Cyanosis to nail beds. EMS found the patient shaking, with initial oxygen saturations in the mid 80's. EMS switched her to BiPap, which improved her saturations. Patient arrives in the ER feeling better, no longer cyanotic or shaking. Oxygen saturation 96% on BiPap. ), other (Patient is rebrile at 102 temporal. Patient reports jeffers catheter removed 1 week ago. ) Exam Limitations: no limitations HPI - Dyspnea Occurred At: home Onset/Timing: Changing over time Duration: 1-3 hrs Pain/Severity Scale: Now & Worst: 0/10 Severity: moderate Activities at Onset: rest Prior Episodes/Possible Cause: occasional episodes Modifying Factors: IMPROVES WITH: other (BiPap), oxygen Associated Symptoms: malaise, shortness of breath Aspirin Treatment Today: unknown Hx of Similar Symptoms: Yes Allergies: Coded Allergies: doxazosin (Verified Allergy, Mild, 01/14/17) cough lisinopril (Verified Adverse Reaction, Intermediate, VOMITTING, 01/14/17) Past History Patient Surgical History exploratory laparotomy, lysis of adhesions and decompression colonoscopy 11-13-2010 Anand. Sigmoid resection (many years prior to 2010) Colonoscopy and decompression 11-26-2010 [facility] Hysterectomy Right bunionectomy Right knee surgery Past Medical History Metabolic: diabetes, gout, hypercholesterolemia, hypertension, other Respiratory: other GI: other Female: renal insufficiency Musculoskeletal: back pain Surgical History General: colonoscopy, other Reproductive/: hysterectomy Joint: foot, knee, other Family History Family PMH: FOUND: other Vaccines Hx Influenza Vaccination: Yes (JUL 2015) Hx Pneumococcal Vaccination: Yes (JUL 2015) Social History Smoking Status: Unknown if ever smoked Does patient use chewing tobac: No Second Hand Exposure: No Substance Use Type: does not use Alcohol Intake: none Marital Status: Sexuality: male partner Housing: house Household Members: spouse Service: No Occupational Hazard: No Advance Directives: Yes DNR Review of Systems Constitutional Constitutional: fever, DENIES: chills Eyes Lids/Accessories: DENIES: erythema, swelling ENMT Ears: DENIES: erythema, pain Sinuses: DENIES: congestion, rhinorrhea Mouth/Throat: DENIES: sore throat Cardiovascular Cardiac: dyspnea on exertion, orthopnea, DENIES: chest pain Rhythm/Rate: tachycardia Pulmonary Respiratory: DENIES: cough, dyspnea, sputum GI Upper Abdomen: DENIES: nausea, pain, vomiting Lower Abdomen: DENIES: constipation, diarrhea, pain General: DENIES: dysuria Musculoskeletal General: DENIES: cramps, pain, weakness Integumentary Skin: DENIES: color change, itching, rash Neurological General: DENIES: change in strength, headache, numbness, seizures, syncope, weakness Psychiatric Psychiatric: DENIES: anxiety, depression, nervousness Hematologic/Lymphatic Hematologic/Lymphatic: DENIES: anemia Allergic/Immunological Allergic/Immunoligical: DENIES: sneezing All other Systems All Other Systems: Reviewed and Negative Physical Exam General General Nourishment: well nourished, well developed, appears stated age, adult , obese General Body Habitus: well groomed Vitals and Pain First Documented Vital Signs Date Time Temp Pulse Resp B/P Pulse Ox O2 Delivery O2 Flow Rate FiO2 01/14/17 07:37 102.6 105 28 151/70 99 Bi-pap 01/14/17 07:51 40 Weight: Kilograms: 167.700 Height (feet): 5 Height (inches): 6.00 Triage Pain Scale: RN VS reviewed by Provider: Yes Eyes (brief) Eyes Brief: found: EOMI, PERRL ENMT (brief) ENMT Brief: FOUND: TM clear, TM good light reflex, mucosa moist, NOT FOUND: pharnyx erythema Neck (brief) Neck: FOUND: trachea midline, NOT FOUND: adenopathy, nuchal rigidity, tenderness, tracheal deviation Respiratory Inspection: FOUND: increased effort, NOT FOUND: accessory muscle use, asymmetry , audible stridor, audible wheezing Auscultation: FOUND: rales (fine basillar crackles), NOT FOUND: wheezes Cardiovascular (brief) Cardiac: FOUND: other ((+) chronic Lymphedema, no obvious cellulitis), regular rhythm, NOT FOUND: pedal edema, regular rate (tachycardia) Capillary Refill: <2 sec Pulses: all distal extremities, equal, strong Abdomen (brief) Abdominal Brief: FOUND: bowel normo active x4, soft, NOT FOUND: tender Lymphatic (brief) Lymphatic Brief: NOT FOUND: adenopathy Musculoskeletal (brief) Musculoskeletal Brief: NOT FOUND: spasm, tenderness Integumentary (brief) Integumentary Brief: FOUND: pink, warm Neurologic (brief) Neurological Brief: FOUND: CN w/o gross def to obs, gait w/o gross def to obs, motor-no gross deficits, sensory-no gross deficits, NOT FOUND: ataxia Psychiatric (brief) Psychiatric Brief: FOUND: alert, attentive, normal affect, oriented Differential Diagnoses Considering: Acute Bronchitis, Acute Respiratory Failure, CHF, Influenza, Pneumonia, Pulmonary Edema, Viral Syndrome, Other Progress Results/Orders Orders Procedure Category Date Status Time Iv Lock (Ed Only) EDM 01/14/17 Transmitted 07:48 EKG EKG 01/14/17 Taken Cbc W/Auto LAB 01/14/17 Complete Diff-Reflex Manual Cmp - Comprehensive LAB 01/14/17 Complete Metabolic Blood Culture LUIS 01/14/17 In Process 07:48 Lactate - Lactic Acid LAB 01/14/17 Complete Procalcitonin LAB 01/14/17 Complete 07:48 Jeffers (Ed) EDM 01/14/17 Transmitted 07:48 Lactate - Lactic Acid LAB 01/14/17 In Process 12:18 Catheter Needs MARIELY 01/14/17 In Process Assessment 07:48 Bladder Scanner (Ed) EDM 01/14/17 Transmitted 07:48 Probnp LAB 01/14/17 Complete 07:48 Chest 1 View RAD 01/14/17 Resulted Blood Gas, Arterial - LAB 01/14/17 Complete ABG Troponin I W LAB 01/14/17 Complete Hemolysis Index Ondansetron Inj PHA 01/14/17 Complete (Zofran) 08:15 Acetaminophen Supp PHA 01/14/17 Complete (Tylenol Suppository) 08:15 Normal Saline (Normal PHA 01/14/17 Complete Saline Iv) 08:15 UA, LAB 01/14/17 Complete Dip&Micro(Complete) & 08:40 Urine Culture LUIS 01/14/17 In Process 09:31 Ceftriaxone I.V. (Er PHA 01/14/17 Complete Use Only) (Rocephin 09:45 Lab Results Laboratory Tests Test 01/14/17 08:04 01/14/17 08:07 01/14/17 08:40 01/14/17 09:00 White Blood Count 8.9T/MM3 Red Blood Count 4.58M/MM3 Hemoglobin 14.2GM/DL Hematocrit 44.2% Mean Corpuscular Volume 96.5UM3 Mean Corpuscular Hemoglobin 31.0UUG Mean Corpuscular Hemoglobin Concent 32.1GM/DL RDW Standard Deviation 47.5FL Platelet Count 237T/MM3 Mean Platelet Volume 11.0UM3 Immature Granulocyte % (Auto) 0.6% Neutrophils (%) (Auto) 79.2% Lymphocytes (%) (Auto) 16.1% Monocytes (%) (Auto) 1.5% Eosinophils (%) (Auto) 2.5% Basophils (%) (Auto) 0.1% Absolute Immature Granulocyte (auto 0.05T/MM3 Absolute Neutrophils (auto) 7.1T/MM3 Absolute Lymphocytes (auto) 1.4T/MM3 Absolute Monocytes (auto) 0.1T/MM3 Absolute Eosinophils (auto) 0.2T/MM3 Absolute Basophils (auto) 0.0T/MM3 Turbidity < 20 Sodium Level 146MEQ/L Potassium Level 5.2MEQ/L Chloride Level 108MEQ/L Carbon Dioxide Level 21MEQ/L Anion Gap 17MEQ/L Blood Urea Nitrogen 59.0MG/DL Creatinine 2.6MG/DL Glomerular Filtration Rate Calc 18 BUN/Creatinine Ratio 23RATIO Glucose Level 184MG/DL Calculated Osmolality 303MOSM/KG Calcium Level 9.2MG/DL Total Bilirubin 0.90MG/DL Icterus Index < 2 Aspartate Amino Transf (AST/SGOT) 31U/L Alanine Aminotransferase (ALT/SGPT) 38U/L Alkaline Phosphatase 198U/L Troponin I 0.063ng/ml JU-Fja-H-Type Natriuretic Peptide 546PG/ML Total Protein 8.2G/DL Albumin 4.1G/DL Globulin 4.1G/DL Albumin/Globulin Ratio 1.0RATIO Plasma Lactate 2.2MMOL/L Procalcitonin 1.15NG/ML Chemistry Specimen Hemolysis < 15 Urine Collection Type Jeffers indwelling Urine Color Yellow Urine Turbidity Sl cloudy Urine pH 5.0 Urine Specific [place] 1.025 Urine Protein 2+ Urine Glucose (UA) Negative Urine Ketones Negative Urine Blood 3+ Urine Nitrite Negative Urine Bilirubin Negative Urine Urobilinogen 0.2EU/DL Urine Leukocyte Esterase Trace Urine RBC 10-20/HPF Urine WBC 30-50/HPF Urine Squamous Epithelial Cells 0-5 Urine Bacteria 2+ Urine Culture Indicated Cult reflexed &setup Arterial Blood pH 7.370 Arterial Blood Partial Pressure CO2 33MMHG Arterial Blood pO2 at Patient Temp 93MMHG Arterial Blood HCO3 19MEQ/L Arterial Blood Total CO2 20.1MEQ/L Arterial Blood Oxygen Saturation 97.0% Arterial Blood Base Excess -5.3MMOL/L Oxygen Delivery Method (LAB) Bpap, % Blood Gas Oxygen Liter Flow Blood Gas Oxygen Percent Given 30 Blood Gas Vent Rate Blood Gas Tidal Volume ML Medications Current ED Medications Ondansetron HCl (Zofran) 4 mg O ONCE IV Last administered on 01/14/17 08:11; Start 01/14/17 at 08:15; Stop 01/14/17 at 08:16; Status DC Acetaminophen 650 mg 650 mg O ONCE RECTALLY Last administered on 01/14/17 08: 19; Start 01/14/17 at 08:15; Stop 01/14/17 at 08:16; Status DC Sodium Chloride (Normal Saline IV) 1,000 ml @ 0 mls/hr Q0M ONCE IV Last administered on 01/14/17 08:11; Start 01/14/17 at 08:15; Stop 01/14/17 at 08:16; Status DC Progress Progress Patient resting comfortably EKG EKG : Rate: >100 Rhythm: sinus [place]: left QRS: RBBB (Incompleter) Intervals: normal ST/T: non-specific changes Interpreted by: signing physician EKG ScImage/Picomm EKG interpreted in ScImage/Pic: No Consult/PCP Consult/PCP : Physician Contacted: Dr. Garcia Time Called: 09:35 Time of first response: 09:40 Type of discussion: Admit Discussion/PCP Discussion Details Discussed patient examination, Labs, CXR and EKG Comments Admit Inpatient Tele 10/14 NS @ 100 ml/hr Lovenox 40mg SQ Serial Troponin Rocephin 1gm Daily Xray Xray : Reason for Exam: Possible Sepsis Xray: CXR Portable Interpretation: Abnormal, Reviewed Written Report JANA KEITH DO Jan 14, 2017 08:15 Progress Progress Patient resting comfortably EKG EKG : Rate: >100 Rhythm: sinus [place]: left QRS: RBBB (Incompleter) Intervals: normal ST/T: non-specific changes Interpreted by: signing physician EKG ScImage/Picomm EKG interpreted in ScImage/Pic: No Consult/PCP Consult/PCP : Physician Contacted: Dr. Garcia Time Called: 09:35 Time of first response: 09:40 Type of discussion: Admit Discussion/PCP Discussion Details Discussed patient examination, Labs, CXR and EKG Comments Admit Inpatient Tele 10/14 NS @ 100 ml/hr Lovenox 40mg SQ Serial Troponin Rocephin 1gm Daily Xray Xray : Reason for Exam: Possible Sepsis Xray: CXR Portable Interpretation: Abnormal, Reviewed Written Report JANA KEITH DO Jan 14, 2017 08:15
[2017-01-14 08:26] LABS: ALBUMIN 4.1 G/DL (3.5-5.0); ALKALINE PHOSPHATASE 198 U/L (38-126); ALT (SGPT) 38 U/L (9-52); ANION GAP 17 MEQ/L (5-15); AST (SGOT) 31 U/L (14-36); BUN/CREATININE RATIO 23 RATIO (6-26); CALCIUM 9.2 MG/DL (8.4-10.2); CHLORIDE 108 MEQ/L (98-107); CO2 - CARBON DIOXIDE 21 MEQ/L (22-30); CREATININE 2.6 MG/DL (0.7-1.2); GLOMERULAR FILTRATION RATE 18; GLUCOSE 184 MG/DL (65-110); POTASSIUM 5.2 MEQ/L (3.6-5); SODIUM 146 MEQ/L (134-144); TOTAL PROTEIN 8.2 G/DL (6.3-8.2)
[2017-01-14 08:27] LABS: LACTATE - LACTIC ACID 2.2 MMOL/L (0.6-2.2)
--- NOTE | 2017-01-14 08:42 | NUR ---
IVF RATE DECREASED
--- NOTE | 2017-01-14 08:59 | NUR ---
RT STILL TRYING TO OBTAIN ABG
[2017-01-14] MEDS ORDERED: TRAM50TA4 PO (09:09)
[2017-01-14] MEDS ORDERED: SERT100T PO (09:09)
[2017-01-14] MEDS ORDERED: SENN8.6T12 PO (09:09)
[2017-01-14 09:13] LABS: BLOOD, URINE 3+ (NEGATIVE); COLOR,URINE YELLOW (YELLOW); LEUKOCYTE ESTERASE ,URINE TRACE (NEGATIVE); NITRITE,URINE NEGATIVE (NEGATIVE); UROBILINOGEN,URINE 0.2 EU/DL (NORMAL)
--- NOTE | 2017-01-14 09:28 | DI ---
Indication: ITS.REASON: dyspnea PROCEDURE: CHEST 1 VIEW: Encounter: Initial Comparison: January 17, 2016 Findings: Hypoinflation. Increased interstitial markings on the left side. There is no pleural effusion or pneumothorax. The heart size, pulmonary vascularity and mediastinal contours are unchanged. IMPRESSION: Hypoinflation with increased interstitial markings on the left which could be due to atelectasis, mild edema or atypical/viral pneumonia. .
[2017-01-14 09:31] LABS: BACTERIA,URINE 2+ (NEGATIVE); SQUAMOUS EPITHELIAL CELL,UR 0-5; WBC,URINE 30-50 /HPF (0-5)
--- NOTE | 2017-01-14 09:37 | NUR ---
JOSE GARCIA SPOKE WITH GWEN AT [facility]. SHE IS MADE AWARE THAT PER CONVERSATION WITH ER DOCTOR ADMISSION IS EXPECTED. GWEN CAN BE REACHED AT P#[phone].
[2017-01-14] MEDS ORDERED: ENOXAPARIN 40 MG/0.4 ML INJECTION SQ ONE (09:45)
[2017-01-14] MEDS ORDERED: CEFTRIAXONE I.V. (ER USE ONLY) 1 G in NORMAL SALINE 100 ML IV ONE (09:45)
--- NOTE | 2017-01-14 10:00 | NUR ---
ASSESSMENT PT FEELS BETTER. SHE REQUESTS BIPAP OFF. WILL REMOVE TO TRANSPORT. NAUSEA GONE.
--- OUTSIDE RECORDS SUMMARY | 2017-01-14 10:03 | XMS REPORT | Continuity of Care Document ---
Author Author [facility] Organization [facility] Address Unknown Phone Unavailable Allergies Medications Problems Procedures Results Encounters ACCT No. Visit Date/Time Discharge Status Pt. Type Provider Facility Loc./Unit Complaint [id number] 08/04/2013 13:17:00 08/04/2013 23 :59:59 CLS Outpatient
--- NOTE | 2017-01-14 10:07 | NUR ---
REPORT THIS NURSE RECEIVED REPORT FROM ANDREW MOSCOSO AT THIS TIME, NO CONCERNS AT THIS TIME.
--- NOTE | 2017-01-14 10:07 | NUR ---
REPORT TO ENRIKE MOSCOSO
--- NOTE | 2017-01-14 10:14 | NUR ---
TRANSPORT PER CART ON O2 PER 6L/NC. TOLERATED ACTIVITY WELL. CARE ASSUMED BY ENRIKE MOSCOSO
--- NOTE | 2017-01-14 10:14 | NUR ---
ADMIT PT ADMITTED BY CART TO ROOM 143 AT THIS TIME. PT ALERT AND ORIENTED X3. PT ON 6L/NC, DENIES SOA. DENIES PAIN AT THIS TIME. WILL CONTINUE TO MONITOR.
[2017-01-14] MEDS ORDERED: SENNOSIDES 8.6 MG TABLET PO PRN (10:45)
[2017-01-14] MEDS ORDERED: SENNA + DOCUSATE TAB PO PRN (11:15)
[2017-01-14] MEDS ORDERED: MENTHOL COUGH DROPS (RICOLA) MM PRN (11:15)
[2017-01-14] MEDS ORDERED: MILK OF MAGNESIA 30 ML SUSP PO PRN (11:15)
[2017-01-14] MEDS ORDERED: BISACODYL 10 MG SUPPOSITORY RECTALLY PRN (11:15)
[2017-01-14] MEDS ORDERED: ALBUTEROL INH.SOLN. 2.5 MG/0.5 ML (0.5%) Neb. AEROSOL PRN (11:15)
[2017-01-14] MEDS: 1/2 NS 1,000 ML IV SCH ×2 (11:24→23:38)
--- NOTE | 2017-01-14 12:04 | HPPDOC ---
RIMA,BA Gia SENIOR TECHNICAL SUPPORT ENGINEER 01/14/17 1033: HPI - Adult Date DATE: 01/14/17 TIME: 10:29 General Chief Complaint: shortness of breath History of Present Illness Sully Arshad is a 66 y/o woman who developed severe dyspnea at rest in the morning of 01/14/17. Her , Esteban, noticed that her forehead and fingers were blue, and called 911. She remained cognitively and mentally intact. EMS placed her on BiPAP and her sats and skin color quickly improved. On arrival to the emergency department, she was febrile with a temperature of 102.6, tachycardic at 105, and tachypneic with a respiratory rate of 28. Labs revealed a normal white count , however, lactate was elevated at 2.2. CMP: Na slightly elevated at 146, hyperkalemia (4.2), and BINU with BUN of 59 and Cr of 2.6 (baseline around 2). Jeffers catheter was inserted and UA showed UTI. CXR showed left-sided atelectasis but interpretation was limited d/t hypoinflation. BNP was not convincing for CHF. Troponin was 0.06. She received NS 1L bolus and a gram of Rocephin. Dr. Garcia was contacted and the patient was admitted to inpatient status for further evaluation and treatment of severe sepsis, UTI, and acute respiratory failure. LOS is expected to exceed 2 overnights. The patient was seen upon her arrival on the medical floor. Additional history of present illness and review of systems were obtained. She was alert and oriented 3, and her dyspnea has resolved. She was on 4 L of oxygen. She typically does not use oxygen during the day at home, but does use either CPAP or BiPAP at night for her sleep apnea. She has had an indwelling Jeffers catheter for about a year because of urinary incontinence. However, the Jeffers was removed about a week ago, as the patient was planning on working more with therapy to become stronger and transfer to the commode. However, she started to have urinary frequency and urgency without dysuria or hematuria. She also has been noting left lower quadrant abdominal pain that has been going on for " quite a while", possibly 2-3 weeks. She didn't know she was running a fever until the ambulance picked her up. She has been chilling. She also reports 2 episodes of emesis this morning, once in the emergency department and the other one in the ambulance. Her nausea has since resolved. She denies any cough or URI symptoms. No dysphagia. She denies any chest pain or palpitations. She has a history of cellulitis, but her skin has been without any recent infections, and her insists they've been keeping her skin clean and dry. Previously she had quite a bit of arm and leg swelling, and her dose of Lasix was increased to twice a day back in October. Since then the swelling has improved, but her skin has become very dry, and her is worried that she is on too much Lasix. Past Medical History Past Medical History Patient's Medical History: (1) Type 2 diabetes mellitus (2) Chronic renal disease, stage IV (3) Obesity hypoventilation syndrome (4) History of ileus (5) Obstructive sleep apnea (6) Hypercholesterolemia (7) Hypertension (8) Dyslipidemia (9) Diastolic CHF, chronic (10) Chronic back pain (11) OA (osteoarthritis) (12) Morbid obesity with BMI of 50.0-59.9, adult Surgical History Patient's Surgical History: exploratory laparotomy, lysis of adhesions and decompression colonoscopy 11-13-2010 [facility]. Sigmoid resection (many years prior to 2010) Colonoscopy and decompression 11/26/2010 [place] Hysterectomy & bilateral salpingo-oophorectomy Right bunionectomy Right knee arthroscopy Current Medications Home Meds Reported Medications Metoclopramide HCl (Reglan) 10 Mg Tablet, 10 MG PO ACB, TAB 01/14/17 Ondansetron HCl (Zofran) 8 Mg Tablet, Q6HPRN 01/14/17 Furosemide (Lasix) 40 Mg Tablet, 1 TAB PO BID, TAB 01/14/17 Bisacodyl (Dulcolax) 5 Mg Tablet.dr, 2 TAB PO DAILY, TAB 01/14/17 Tramadol HCl (Tramadol HCl) 50 Mg Tablet, 50 MG PO BID Y for PRN ORDERS, TAB 01/14/17 Sertraline (Zoloft) 100 Mg Tablet, 100 MG PO DAILY, TAB 01/14/17 Sennosides (Senna Lax) 8.6 Mg Tablet, 8.6 MG PO DAILY Y for CONSTIPATION, TAB 01/14/17 Atenolol (Atenolol) 50 Mg Tablet, 1 TAB PO BID, TAB 01/01/16 Amlodipine Besylate (Amlodipine Besylate) 5 Mg Tablet, 5 MG PO DAILY, TAB 01/01/16 Allergies: Coded Allergies: doxazosin (Verified Allergy, Mild, 01/14/17) cough lisinopril (Verified Adverse Reaction, Intermediate, VOMITTING, 01/14/17) Family History Family History: Brother - brain cancer Brother - heart disease, diabetes Sister - HTN both parents of old age Social History Smoking Status: Never smoker ( smokes but does not expose her to second- hand smoke) Does patient use chewing tobac: No Second Hand Exposure: No Substance Use Type: does not use Alcohol Intake: none Marital Status: Sexuality: male partner Housing: house Household Members: spouse Service: No Current Occupational Status: retired Occupational Hazard: No 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 Advance Directives: Yes DNR, Yes DPOA for Healthcare Only (Fish Arshad) Social History Comments PCP - Amanda Kan APRN with [facility] - [facility] Review of Systems Constitutional: REPORTS: chills, fever, weakness, DENIES: appetite decrease, dizziness Eyes Vision: DENIES: vision changes ENMT Sinuses: NOT FOUND: congestion, rhinorrhea Mouth/Throat: DENIES: change in swallowing, painful swallowing, sore throat Cardiovascular DENIES: chest pain Rhythm/Rate: DENIES: irregular beat, palpitations Vascular: DENIES: unilateral swelling Pulmonary Respiratory: dyspnea GI Upper Abdomen: nausea, vomiting, DENIES: pain Lower Abdomen: DENIES: constipation, diarrhea General: frequency, urgency, DENIES: dysuria Female: menopause Musculoskeletal General: pain (both legs) Lumbar: pain Integumentary Skin: DENIES: infections Neurological General: headache (mild), weakness, DENIES: memory disturbances, seizures Psychiatric Psychiatric: depression Hematologic/Lymphatic easy bruising Allergic/Immunological frequent infections All Other Systems All Other Systems: Reviewed (remainder of 10-point ROS Neg.) Physical Exam General General Nourishment: well nourished, well developed, obese Vital Signs Vital Signs Date Time Temp Pulse Resp B/P Pulse Ox O2 Delivery O2 Flow Rate FiO2 01/14/17 10:26 98.9 91 18 118/68 97 Nasal Cannula 4.00 01/14/17 10:14 30 Height (Feet): 5 Height (Inches): 6.00 Eyes Brief: FOUND: PERRL, NOT FOUND: scleral icterus ENMT Brief: FOUND: mucosa moist, NOT FOUND: pharnyx erythema Neck Brief: NOT FOUND: adenopathy, nuchal rigidity Respiratory Auscultation: FOUND: decreased, NOT FOUND: rales, rhonchi, wheezes Cardiovascular Auscultation: FOUND: S1, S2, regular Murmur: FOUND: systolic Peripheral Pulses: 2+: Dorasalis Pedis (L), Dorsalis Pedis (R), Radial (L), Radial (R) Edema: 0: Anasarca, Arm (L), Arm (R), Face Comments trace pedal and pretibial edema b/l Abdomen Inspection: NOT FOUND: distention Palpation: FOUND: soft, tender (with guarding to LLQ), NOT FOUND: rebound Auscultation: FOUND: normo active Lymphatic (brief) Lymphatic Brief: NOT FOUND: adenopathy Musculoskeletal (brief) Musculoskeletal Brief: NOT FOUND: tenderness (calves soft nttp) Integumentary (brief) Integumentary Brief: FOUND: dry, pink, warm Integumentary General: FOUND: dry, warm Color: FOUND: pink Neurologic (brief) Neurological Brief: FOUND: cranial 2-12 intact (grossly) Neurologic GCS Eye Opening: (4)Spontaneous GCS Verbal: (5)Oriented GCS Motor: (6)Obeys Commands RN Documented GCS Total: 15 Psychiatric (brief) FOUND: alert, attentive, normal affect, oriented Laboratory Laboratory Tests Test 01/14/17 08:04 01/14/17 08:07 01/14/17 08:40 01/14/17 09:00 White Blood Count 8.9T/MM3 Red Blood Count 4.58M/MM3 Hemoglobin 14.2GM/DL Hematocrit 44.2% Mean Corpuscular Volume 96.5UM3 Mean Corpuscular Hemoglobin 31.0UUG Mean Corpuscular Hemoglobin Concent 32.1GM/DL RDW Standard Deviation 47.5FL Platelet Count 237T/MM3 Mean Platelet Volume 11.0UM3 Immature Granulocyte % (Auto) 0.6% Neutrophils (%) (Auto) 79.2% Lymphocytes (%) (Auto) 16.1% Monocytes (%) (Auto) 1.5% Eosinophils (%) (Auto) 2.5% Basophils (%) (Auto) 0.1% Absolute Immature Granulocyte (auto 0.05T/MM3 Absolute Neutrophils (auto) 7.1T/MM3 Absolute Lymphocytes (auto) 1.4T/MM3 Absolute Monocytes (auto) 0.1T/MM3 Absolute Eosinophils (auto) 0.2T/MM3 Absolute Basophils (auto) 0.0T/MM3 Turbidity < 20 Sodium Level 146MEQ/L Potassium Level 5.2MEQ/L Chloride Level 108MEQ/L Carbon Dioxide Level 21MEQ/L Anion Gap 17MEQ/L Blood Urea Nitrogen 59.0MG/DL Creatinine 2.6MG/DL Glomerular Filtration Rate Calc 18 BUN/Creatinine Ratio 23RATIO Glucose Level 184MG/DL Calculated Osmolality 303MOSM/KG Calcium Level 9.2MG/DL Total Bilirubin 0.90MG/DL Icterus Index < 2 Aspartate Amino Transf (AST/SGOT) 31U/L Alanine Aminotransferase (ALT/SGPT) 38U/L Alkaline Phosphatase 198U/L Troponin I 0.063ng/ml QK-Vnr-L-Type Natriuretic Peptide 546PG/ML Total Protein 8.2G/DL Albumin 4.1G/DL Globulin 4.1G/DL Albumin/Globulin Ratio 1.0RATIO Plasma Lactate 2.2MMOL/L Procalcitonin 1.15NG/ML Chemistry Specimen Hemolysis < 15 Urine Collection Type Jeffers indwelling Urine Color Yellow Urine Turbidity Sl cloudy Urine pH 5.0 Urine Specific [place] 1.025 Urine Protein 2+ Urine Glucose (UA) Negative Urine Ketones Negative Urine Blood 3+ Urine Nitrite Negative Urine Bilirubin Negative Urine Urobilinogen 0.2EU/DL Urine Leukocyte Esterase Trace Urine RBC 10-20/HPF Urine WBC 30-50/HPF Urine Squamous Epithelial Cells 0-5 Urine Bacteria 2+ Urine Culture Indicated Cult reflexed &setup Arterial Blood pH 7.370 Arterial Blood Partial Pressure CO2 33MMHG Arterial Blood pO2 at Patient Temp 93MMHG Arterial Blood HCO3 19MEQ/L Arterial Blood Total CO2 20.1MEQ/L Arterial Blood Oxygen Saturation 97.0% Arterial Blood Base Excess -5.3MMOL/L Oxygen Delivery Method (LAB) Bpap, % Blood Gas Oxygen Liter Flow Blood Gas Oxygen Percent Given 30 Blood Gas Vent Rate Blood Gas Tidal Volume ML EKG Sinus tach 110 RBBB L axis Sepsis Diagnostic Criteria Sepsis Confirmed/Suspected Infection: Yes SIRS Criteria: Temp<=96.8 or >=100.4, Pulse >= 90 beats/min, RR > or = to 20 Severe Sepsis SpO2 <90% or ventilated, Lactate >=2.0 mg/dL Assessment & Plan Problems: (1) Severe sepsis Status: Acute Assessment & Plan: POA SIRS = tachycardia, tachypnea, fever Organ dysfunction = lactate 2.2; possibly respiratory dysfunction (further tests pending) (2) BINU (acute kidney injury) Status: Acute (3) UTI (urinary tract infection) Status: Acute Qualifiers: Urinary tract infection type: acute cystitis Hematuria presence: with hematuria Qualified Codes: N30.01 - Acute cystitis with hematuria Assessment & Plan: POA Jeffers inserted in ED (4) Hyperkalemia Status: Acute (5) Respiratory failure Status: Acute Qualifiers: Chronicity: acute Respiratory failure complication: hypoxia Qualified Codes: J96.01 - Acute respiratory failure with hypoxia (6) Hyperosmolality and hypernatremia Status: Resolved (7) Diastolic CHF, chronic Status: Chronic (8) Type 2 diabetes mellitus Status: Chronic (9) Chronic renal disease, stage IV Status: Chronic (10) Morbid obesity with BMI of 50.0-59.9, adult (11) Hypertension Status: Chronic (12) Hypercholesterolemia Status: Chronic (13) Obstructive sleep apnea Status: Chronic Plan/Intensity of Service Admit, inpatient status under the hospitalist service. PCP: Amanda Kan APRN with [facility]. Her phone # is: . I spoke with her upon Sully's admission. She will fax us an updated med list. Severe sepsis secondary to UTI - SIRS criteria include tachycardia, tachypnea and fever of 102.6. - Organ dysfunction: Lactate of 2.2. Her acute respiratory failure could also be a sign of organ dysfunction, however, we need to evaluate underlying causes, especially given her history of diastolic CHF - Repeat lactate and follow culture results. - Jeffers was inserted in the emergency department. Goal would be to remove this as soon as possible and as soon as clinically stable. - Diet: Clear liquids. LLQ pain - With recent nausea and vomiting, concerning for pyelonephritis. - Patient also has a history of ileus and sigmoid resection, placing her at high risk for bowel obstruction and adhesions. - We'll obtain CT scan of her abdomen and pelvis without contrast. BINU and hyperkalemia - Baseline creatinine is about 2.0. - She received a liter of IV fluids in the ER. Will continue IV fluids. - Consider renal ultrasound. - Hold Lasix. - Monitor ins and outs closely Hypernatremia - Half-normal saline at 100 mL per hour. Watch for fluid overload. Acute respiratory failure - BiPAP and oxygen as needed. BiPAP at night for sleep apnea. She does not use daily O2. - History of diastolic CHF, will repeat echocardiogram today. Last echocardiogram was on 01/01/16, a technically difficult study that showed an EF of about 55%, mild mitral regurgitation, mild tricuspid regurgitation and mild pulmonary hypertension. - Trend serial troponin Type 2 diabetes - I requested hemoglobin A1c results from Amanda Kan. - Monitor blood glucose. Morbid obesity and generalized Weakness - Consult PT/OT Code status: DNR Assessment and plan discussed with Dr. Garcia. DVT Prophylaxis: Lovenox Code Status Full Code Hospital Course Summary Disclaimer The hospital course summary below is not to be considered part of the above Progress Note. Hospital Course Summary 01/14/17: Admit, inpatient status under the hospitalist service. PCP: Amanda Kan APRN with [facility]. Her phone # is: . I spoke with her upon Sully's admission. She will fax us an updated med list. Severe sepsis secondary to UTI - SIRS criteria include tachycardia, tachypnea and fever of 102.6. - Organ dysfunction: Lactate of 2.2. Her acute respiratory failure could also be a sign of organ dysfunction, however, we need to evaluate underlying causes, especially given her history of diastolic CHF - Repeat lactate and follow culture results. - Jeffers was inserted in the emergency department. Goal would be to remove this as soon as possible and as soon as clinically stable. - Diet: Clear liquids. LLQ pain - With recent nausea and vomiting, concerning for pyelonephritis. - Patient also has a history of ileus and sigmoid resection, placing her at high risk for bowel obstruction and adhesions. - We'll obtain CT scan of her abdomen and pelvis without contrast. BINU and hyperkalemia - Baseline creatinine is about 2.0. - She received a liter of IV fluids in the ER. Will continue IV fluids. - Consider renal ultrasound. - Hold Lasix. - Monitor ins and outs closely Hypernatremia - Half-normal saline at 100 mL per hour. Watch for fluid overload. Acute respiratory failure - BiPAP and oxygen as needed. BiPAP at night for sleep apnea. She does not use daily O2. - History of diastolic CHF, will repeat echocardiogram today. Last echocardiogram was on 01/01/16, a technically difficult study that showed an EF of about 55%, mild mitral regurgitation, mild tricuspid regurgitation and mild pulmonary hypertension. - Trend serial troponin Type 2 diabetes - I requested hemoglobin A1c results from Amanda Kan. - Monitor blood glucose. Morbid obesity and generalized Weakness - Consult PT/OT Code status: DNR Assessment and plan discussed with Dr. Garcia. VARINDER GARCIA MD 01/14/17 6014: Past Medical History Current Medications Home Meds Reported Medications Metoclopramide HCl (Reglan) 10 Mg Tablet, 10 MG PO ACB, TAB 01/14/17 Ondansetron HCl (Zofran) 8 Mg Tablet, Q6HPRN 01/14/17 Furosemide (Lasix) 40 Mg Tablet, 1 TAB PO BID, TAB 01/14/17 Bisacodyl (Dulcolax) 5 Mg Tablet.dr, 2 TAB PO DAILY, TAB 01/14/17 Tramadol HCl (Tramadol HCl) 50 Mg Tablet, 50 MG PO BID Y for PRN ORDERS, TAB 01/14/17 Sertraline (Zoloft) 100 Mg Tablet, 100 MG PO DAILY, TAB 01/14/17 Sennosides (Senna Lax) 8.6 Mg Tablet, 8.6 MG PO DAILY Y for CONSTIPATION, TAB 01/14/17 Atenolol (Atenolol) 50 Mg Tablet, 1 TAB PO BID, TAB 01/01/16 Amlodipine Besylate (Amlodipine Besylate) 5 Mg Tablet, 5 MG PO DAILY, TAB 01/01/16 Allergies: Coded Allergies: doxazosin (Verified Allergy, Mild, 01/14/17) cough lisinopril (Verified Adverse Reaction, Intermediate, VOMITTING, 01/14/17) Assessment & Plan Problems: (1) Severe sepsis Status: Acute Assessment & Plan: POA SIRS = tachycardia, tachypnea, fever Organ dysfunction = lactate 2.2; possibly respiratory dysfunction (further tests pending) (2) BINU (acute kidney injury) Status: Acute (3) UTI (urinary tract infection) Status: Acute Qualifiers: Urinary tract infection type: acute cystitis Hematuria presence: with hematuria Qualified Codes: N30.01 - Acute cystitis with hematuria Assessment & Plan: POA Jeffers inserted in ED (4) Hyperkalemia Status: Acute Assessment & Plan: POA (5) Respiratory failure Status: Acute Qualifiers: Chronicity: acute Respiratory failure complication: hypoxia Qualified Codes: J96.01 - Acute respiratory failure with hypoxia (6) Hyperosmolality and hypernatremia Status: Resolved Assessment & Plan: POA (7) Diastolic CHF, chronic Status: Chronic (8) Type 2 diabetes mellitus Status: Chronic (9) Chronic renal disease, stage IV Status: Chronic (10) Morbid obesity with BMI of 50.0-59.9, adult (11) Hypertension Status: Chronic (12) Hypercholesterolemia Status: Chronic (13) Obstructive sleep apnea Status: Chronic Plan/Intensity of Service Have independently interviewed and examined pt. Chart reviewed. Case discussed with ED physician and my SENIOR TECHNICAL SUPPORT ENGINEER. Care plan developed with my supervision; agree with above. Pt work this morning feeling very cold and having severe shakes. reported to he that she looked blue. More weak. More SOA. Not with increasing cough, congestion. No pain with breathing or sputum. Not feeling chest pressure , pain or palpitations. Appetite has been stable. Stools with some variability, but no major diarrhea. Using jeffers for about 1 year - removed 1 week ago. Working with therapy in outpatient setting - improved from being totally bed bound to able to walk 20 feet with walker. Lungs: decreased, no wheezes, shallow breathing CV: regular AB: soft obese ND BS decreased MSE: awake alert appropriate Plan: Inpatient admission for severe sepsis - source urine, possible lung as well. Anticipate greater than 2 midnights of care needed. Rocephin and azithromycin for pulm coverage. Check cultures. 1/2NS for hydration - monitor for overload. Recheck ECHO. PT/OT to help functional status. SCD and Lovenox for DVT prevention. Monitor lab. Continue home CPAP - O2 as needed to help with saturation. DVT Prophylaxis: SCD'S BA ABARCA APRN Jan 14, 2017 10:33 VARINDER GARCIA MD Jan 14, 2017 14:57
[2017-01-14] MEDS: ACETAMINOPHEN 325 MG TABLET PO PRN ×2 (12:13→19:41)
--- NOTE | 2017-01-14 12:51 | DI ---
Indication: ITS.REASON: LLQ pain, sepsis PROCEDURE: CT ABD/PELVIS W/O CONTRAST: Encounter: Initial Comparison: None Technique: Axial CT images were performed through the abdomen and pelvis without intravenous contrast. Coronal and sagittal two-dimensional reformats. Automated Exposure Control and Iterative Reconstruction dose reducing techniques were utilized. Findings: Minimal atelectasis in the lung bases. The liver is decreased in attenuation consistent with fatty infiltration. The left lobe of the liver is atrophic. The gallbladder is unremarkable. The spleen, pancreas and adrenal glands are grossly normal. The unenhanced kidneys show no renal stone disease or hydronephrosis. No ureteral stones. Bladder is decompressed with a Velazquez catheter. There is some gas present as well probably related to the instrumentation. Uterus is surgically absent. No free fluid. Postoperative changes in the distal colon. Large amount of stool in the transverse and left colon. No evidence of a bowel obstruction. The appendix is normal. No free air. Bone windows show degenerative changes in the spine. Impression: 1. No acute disease process seen in the abdomen or pelvis. 2. Increased colonic stool burden. 3. Hepatic steatosis. .
[2017-01-14 12:52] LABS: LACTATE - LACTIC ACID 1.4 MMOL/L (0.6-2.2)
[2017-01-14] MEDS ORDERED: METO-230 PO (12:59)
[2017-01-14] MEDS ORDERED: BISA-72 PO (12:59)
[2017-01-14] MEDS ORDERED: FURO-153 PO (12:59)
[2017-01-14] MEDS ORDERED: ONDA8TAB5 (12:59)
[2017-01-14] MEDS ORDERED: MAG-AL + SIM LIQUID 30 ML UDC PO PRN (14:15)
[2017-01-14] MEDS ORDERED: NITROGLYCERIN 0.4 MG SUBLINGUAL TABLET SL PRN (14:15)
[2017-01-14] MEDS ORDERED: PRN ORDERS MC (14:15)
[2017-01-14] MEDS ORDERED: PROCHLORPERAZINE 10 MG TABLET PO ONE (14:45)
[2017-01-14] MEDS ORDERED: PNEUMOCOCCAL 13 VACCINE 0.5 ML SYRINGE IM ONE (15:00)
[2017-01-14] MEDS: AZITHROMYCIN 500 MG in NORMAL SALINE 250 ML IV SCH (15:10)
--- NOTE | 2017-01-14 18:54 | NUR ---
SHIFT SUMMARY PT ALERT AND ORIENTED X3. PT ON 3L/NC, DENIES SOA. PT DENIES PAIN AT THIS TIME, PRN TYLENOL ADMINISTERED EARLIER THIS SHIFT FOR HEADACHE. PT DENIES N/V. IVF INFUSING ORDERED INTO LEFT FOREARM. SUERO PATENT, ADEQUATE URINE OUTPUT. TURN Q2H WITH ASSIST X2. PT ABLE TO MAKE NEEDS KNOWN. BED ALARM ON, CALL LIGHT WITHIN REACH.
--- NOTE | 2017-01-14 19:50 | NUR ---
PRN PT WAS GIVEN TYLENOL FOR HEADACHE PER HER REQUEST.
[2017-01-14] MEDS: ATENOLOL 50 MG TABLET PO SCH (20:34)
[2017-01-14] MEDS: MELATONIN 5 MG TABLET PO PRN (22:01)
--- NOTE | 2017-01-14 22:05 | NUR ---
PRN PT WAS GIVEN MELATONIN PER HER REQUEST FOR INSOMNIA. PT IS USING HER HOME CPAP. SHE TRIED TO USE THE FACILITY BIPAP. SHE SAID SHE COULDN'T HANDLE IT BECAUSE IT WAS MAKING HER ANXIOUS. BROUGHT HER HOME CPAP. PT USING IT AT THE MOMENT. NO ANXIETY REPORTED. WILL CONTINUE TO MONITOR.
[2017-01-15] VITALS (8 sets, daily range): BP systolic 134–152; BP diastolic 66–75; PULSE 69–81; RESP 18–24; TEMP 97.9–98.3; O2SAT 90–94
--- NOTE | 2017-01-15 02:39 | NUR ---
LABS LAB CALLED REPORTING THE PT BLOOD CULTURE WAS POSITIVE OF GRAM NEGATIVE RODS. TELE HOSPITALIST PAGED. CALLED BACK. THIS NURSE TOLD HIM THE ANTIBIOTICS THAT THE PT IS ON. HE SAID THE PT IS COVERED. NO NEW ORDERS.
[2017-01-15 05:54] LABS: HCT - HEMATOCRIT 37.3 % (36-46); HGB - HEMOGLOBIN 11.7 GM/DL (12-16); MEAN CORPUSCULAR HGB 30.7 UUG (26-34); MEAN CORPUSCULAR HGB CONC(MCHC 31.4 GM/DL (31-37); MEAN CORPUSCULAR VOLUME 97.9 UM3 (80-100); MEAN PLATELET VOLUME 11.3 UM3 (9.4-12.4); RED BLOOD COUNT 3.81 M/MM3 (4.00-5.20); WBC - WHITE BLOOD COUNT 13.1 T/MM3 (4.5-11.0)
[2017-01-15 06:05] LABS: ANION GAP 10 MEQ/L (5-15); BUN/CREATININE RATIO 22 RATIO (6-26); CALCIUM 8.9 MG/DL (8.4-10.2); CHLORIDE 111 MEQ/L (98-107); CO2 - CARBON DIOXIDE 21 MEQ/L (22-30); CREATININE 2.6 MG/DL (0.7-1.2); GLOMERULAR FILTRATION RATE 18; GLUCOSE 142 MG/DL (65-110); MAGNESIUM 2.2 MG/DL (1.6-2.3); PHOSPHORUS 4.4 MG/DL (2.5-4.5); SODIUM 142 MEQ/L (134-144)
--- NOTE | 2017-01-15 06:23 | NUR ---
SUMMARY. PT SLEEPING AT THE MOMENT. HOME CPAP ON ALL NIGHT. WAS GIVEN MELATONIN HS PER HER REQUEST AND TYLENOL FOR HEADACHE. ASSIST X 2 WITH REPOSITIONING. SCDS ON BLE.PT WAS EDUCATED AND CALL LIGHT USE AND PT SAFETY. CONTINUES ON IV FLUIDS THAT SHE TOLERATES WELL. SUERO IN PLACE.
[2017-01-15 06:49] LABS: BAND NEUTROPHILS # 0.9 T/MM3; EOSINOPHILS # (MANUAL) 0.3 T/MM3 (0-0.5); LYMPHOCYTES # (MANUAL) 1.2 T/MM3 (1-4.8); MONOCYTES # (MANUAL) 0.7 T/MM3 (0-0.8); NEUTROPHILS #(MANUAL)-ABSOLUTE 10.1 T/MM3 (1.8-7.7); TOTAL CELLS COUNTED 100 %
--- NOTE | 2017-01-15 06:50 | NUR ---
LABS DR. MOORE NOTIFIED OF LABS, PROCALCITONIN, BUN, CREATININE, TROPONIN. NO NEW ORDERS RECEIVED.
[2017-01-15] MEDS: TRAMADOL 50 MG TABLET PO PRN ×2 (07:30→20:59)
--- NOTE | 2017-01-15 07:30 | NUR ---
HEADACHE PRN ULTRAM GIVEN FOR HEADACHE 05/22.
[2017-01-15] MEDS: AMLODIPINE 5 MG TABLET PO SCH (08:11)
[2017-01-15] MEDS: ATENOLOL 50 MG TABLET PO SCH ×2 (08:12→20:58)
[2017-01-15] MEDS: CEFTRIAXONE 1 G in NORMAL SALINE 100 ML IV SCH (08:12)
[2017-01-15] MEDS: SERTRALINE 100 MG TABLET PO SCH (08:12)
[2017-01-15] MEDS: ENOXAPARIN 40 MG/0.4 ML INJECTION SQ SCH (08:13)
[2017-01-15] MEDS: ONDANSETRON 4mg/2ml INJECTION IV PRN ×3 (08:15→22:04)
--- NOTE | 2017-01-15 08:16 | NUR ---
NAUSEA PT BECOMING NAUSEATED WITH HER BARRETT, PRN ZOFRAN GIVEN AND DIET LOUANN. COOL WASHCLOTH PLACED ON HER HEAD.
--- NOTE | 2017-01-15 08:33 | NUR ---
ISIS ABARCA APRN NOTIFIED OF SEVERE SEPSIS RISK.
--- NOTE | 2017-01-15 10:37 | NUR ---
CM IN TO VISIT WITH PT. PT IS AT BEDSIDE. CM EXPLAINED ROLE AND CONTACT INFORMATION PROVIDED. PT AND REPORT THAT SHE WAS HOME WITH [facility] AND PLAN TO RETURN WITH SAME SERVICES. PT AND AWARE TO CALL CM SHOULD NEEDS ARISE.
[2017-01-15] MEDS: 1/2 NS 1,000 ML IV SCH ×2 (11:33→23:20)
--- NOTE | 2017-01-15 11:51 | ECHOF ---
DATE OF PROCEDURE January 14, [address] Shravan Garcia This is a two-dimensional echo with spectral Doppler, color-flow and M-mode. It was obtained in a patient with congestive heart failure and hypoxia. It was a technically very difficult study due to patient's body habitus. Left atrium appears to be normal. Left ventricle end-diastolic dimension is normal. Left ventricular wall thickness is increased. LV systolic function is normal with ejection fraction of 62%. Right atrium is normal. Right ventricle is normal. Aortic root dimension is normal. Mitral annulus is calcified. Mitral valve leaflets are normal. Aortic valve shows fibrocalcific changes with no stenosis or insufficiency. Tricuspid valve shows mild tricuspid regurgitation with mild pulmonary hypertension with estimated pulmonary artery systolic pressure of 39. Pulmonary valve shows no pulmonary insufficiency. There is no pericardial effusion. IMPRESSION 1. Normal LV systolic function with ejection fraction of 62%. 2. Concentric left ventricular hypertrophy. 3. Mitral annulus calcification. 4. Aortic sclerosis. 5. Mild tricuspid regurgitation with mild pulmonary hypertension with estimated pulmonary artery systolic pressure of 39. MTDD
--- NOTE | 2017-01-15 12:11 | PNPDOC ---
Subjective Date DATE: 01/15/17 TIME: 11:57 Subjective F/U: Severe sepsis secondary to UTI, Ecoli UTI Not feeling as well today. More weak and tired. Frontal and temporal BARRETT. Dyspepsia and decreased appetite. Breathing stable-denies increased SOA or congestion. No pain with breathing or cough. No chest pressure or discomfort. Some discomfort with Velazquez cath. Objective Vital Signs Vital signs Vital Signs Date Time Temp Pulse Resp B/P Pulse Ox O2 Delivery O2 Flow Rate FiO2 01/15/17 11:15 98.0 76 22 134/69 93 CPAP 01/14/17 20:00 3.00 01/14/17 10:14 30 Height (Feet): 5 Height (Inches): 6.00 Weight (Kilograms): 164.400 General General Appearance: Alert, Obese, Orientated x 3, Well Nourished, Well Developed, Cooperative, Mild Distress, Other (Looking more weak and tired today. ), Looks Stated Age Eyes (Brief) Eyes: FOUND: EOMI, PERRL, NOT FOUND: scleral icterus ENMT (Brief) ENMT: FOUND: hearing intact, mucosa moist (No oral thrush) Neck (Brief) Neck: FOUND: midline, NOT FOUND: nuchal rigidity, spasm Respiratory (Brief) Respiratory: FOUND: clear all [place], equal bilaterally, other (No distress on RA ), NOT FOUND: rales, wheezes Cardiovascular (Brief) Cardiac: FOUND: pedal edema (+2 ), regular rate, regular rhythm Abdomen (Brief) Abdominal: FOUND: soft, NOT FOUND: BS normo active x4 (Decreased bowel sounds. ), distended, tender (Brief) Female: FOUND: other (Velazquez in place ) Extremities (Brief) Extremity : Side: Bilateral Extremity: leg Extremity Finding: FOUND: edema (+2 ), other (scd) Musculoskeletal (Brief) Musculoskeletal: FOUND: extremities move equally, NOT FOUND: deformity, spasm Integumentary (Brief) Integumentary: FOUND: dry, warm Neurologic (Brief) Neurological: FOUND: cranial 2-12 intact, motor (Intact ) Psychiatric (Brief) Psychiatric: FOUND: alert, attentive, normal affect, oriented Laboratory Laboratory Laboratory Tests 01/14/17 08:07 01/15/17 04:55 Laboratory Tests 01/14/17 08:04 01/15/17 04:55 Microbiology Microbiology Microbiology Date/Time Source Procedure Growth Status 01/14/17 08:07 Peripheral/Iv Start Blood Culture - Preliminary NO GROWTH AFTER 24 HOURS Resulted 01/14/17 08:02 Peripheral/Iv Start Gram Stain - Final Resulted 01/14/17 08:02 Blood Culture - Preliminary Escherichia Coli Resulted 01/14/17 09:31 Urine, Velazquez Indwelling Urine Culture - Preliminary Escherichia Coli Resulted Sepsis Diagnostic Criteria Sepsis Confirmed/Suspected Infection: Yes SIRS Criteria: Temp<=96.8 or >=100.4, Pulse >= 90 beats/min, RR > or = to 20 Severe Sepsis SpO2 <90% or ventilated, Lactate >=2.0 mg/dL Assessment & Plan Problems: (1) Severe sepsis Status: Acute Assessment & Plan: POA SIRS = tachycardia, tachypnea, fever Organ dysfunction = lactate 2.2; possibly respiratory dysfunction (further tests pending) (2) Bacteremia due to Escherichia coli Status: Acute Assessment & Plan: 1 of 2 BC positive from admit. (3) UTI (urinary tract infection) Status: Acute Qualifiers: Urinary tract infection type: acute cystitis Hematuria presence: with hematuria Qualified Codes: N30.01 - Acute cystitis with hematuria Assessment & Plan: POA - Urine culture with E coli. Velazquez inserted in ED (4) BINU (acute kidney injury) Status: Resolved (5) Respiratory failure Status: Acute Qualifiers: Chronicity: acute Respiratory failure complication: hypoxia Qualified Codes: J96.01 - Acute respiratory failure with hypoxia (6) Hyperkalemia Status: Resolved Assessment & Plan: POA (7) Hyperosmolality and hypernatremia Status: Resolved Assessment & Plan: POA (8) Diastolic CHF, chronic Status: Chronic (9) Type 2 diabetes mellitus Status: Chronic (10) Hypertension Status: Chronic (11) Hypercholesterolemia Status: Chronic (12) Chronic renal disease, stage IV Status: Chronic (13) Obstructive sleep apnea Status: Chronic (14) Morbid obesity with BMI of 50.0-59.9, adult Status: Chronic Plan/Intensity of Service Will continue Rocephin for urinary coverage - check on C/S. Continue IVF at 100cc/hr to help with hydration and BINU. Continue respiratory support. Dilaudid prn pain. PT/OT as pt able - feeling to weak and sick to attempt today. Recheck CBC in am due to sepsis. Will recheck blood culture and procalcitonin in am due to positive BC. Repeat BMP in am due to BINU and electrolyte disturbance. Case discussed with nursing and CM. Time spent with pt care 35 minutes. High risk medication involved: IV Diluadid for pain. DVT Prophylaxis: SCD'S, Lovenox Code Status Do Not Resuscitate Hospital Course Summary Disclaimer The hospital course summary below is not to be considered part of the above Progress Note. Hospital Course Summary 01/14/17: Admit, inpatient status under the hospitalist service. PCP: Amanda Kan APRN with [employer]. Her phone # is: . I spoke with her upon Sully's admission. She will fax us an updated med list. Severe sepsis secondary to UTI - SIRS criteria include tachycardia, tachypnea and fever of 102.6. - Organ dysfunction: Lactate of 2.2. Her acute respiratory failure could also be a sign of organ dysfunction, however, we need to evaluate underlying causes, especially given her history of diastolic CHF - Repeat lactate and follow culture results. - Velazquez was inserted in the emergency department. Goal would be to remove this as soon as possible and as soon as clinically stable. - Diet: Clear liquids. LLQ pain - With recent nausea and vomiting, concerning for pyelonephritis. - Patient also has a history of ileus and sigmoid resection, placing her at high risk for bowel obstruction and adhesions. - We'll obtain CT scan of her abdomen and pelvis without contrast. BINU and hyperkalemia - Baseline creatinine is about 2.0. - She received a liter of IV fluids in the ER. Will continue IV fluids. - Consider renal ultrasound. - Hold Lasix. - Monitor ins and outs closely Hypernatremia - Half-normal saline at 100 mL per hour. Watch for fluid overload. Acute respiratory failure - BiPAP and oxygen as needed. BiPAP at night for sleep apnea. She does not use daily O2. - History of diastolic CHF, will repeat echocardiogram today. Last echocardiogram was on 01/01/16, a technically difficult study that showed an EF of about 55%, mild mitral regurgitation, mild tricuspid regurgitation and mild pulmonary hypertension. - Trend serial troponin Type 2 diabetes - I requested hemoglobin A1c results from Amanda Kan. - Monitor blood glucose. Morbid obesity and generalized Weakness - Consult PT/OT Code status: DNR Assessment and plan discussed with Dr. Garcia. 4/5 Not feeling as well today. More weak and tired. Frontal and temporal BARRETT. Dyspepsia and decreased appetite. Breathing stable-denies increased SOA or congestion. No pain with breathing or cough. No chest pressure or discomfort. Some discomfort with Velazquez cath. WBC with increase to 13.1. 1 of 2 BC positive for Ecoli. Urine positive for Ecoli. Creatinine 2.6-unchanged. Sodium and potassium normalized. Will continue Rocephin for urinary coverage - check on C/S. Continue IVF at 100cc/hr to help with hydration and BINU. Continue respiratory support. Dilaudid prn pain. PT/OT as pt able - feeling to weak and sick to attempt today. Recheck CBC in am due to sepsis. Will recheck blood culture and procalcitonin in am due to positive BC. Repeat BMP in am due to BINU and electrolyte disturbance. VARINDER GARCIA MD Jan 15, 2017 12:00
[2017-01-15] MEDS: HYDROMORPHONE 2mg/ml INJECTION IV PRN (12:15)
[2017-01-15] MEDS: PROMETHAZINE 50 MG INJECTION IV PRN ×2 (12:38→20:59)
--- NOTE | 2017-01-15 12:39 | NUR ---
PAIN/NAUSEA PRN DILAUDID GIVEN FOR BARRETT THEN PHENERGAN GIVEN FOR NAUSEA FROM THE DILAUDID.
--- NOTE | 2017-01-15 13:53 | NUR ---
PT/OT note: Attempted to see pt twice this date - pt declined both times d/t her headache. Will attempt tomorrow. Call [phone] with questions.
[2017-01-15] MEDS: AZITHROMYCIN 500 MG in NORMAL SALINE 250 ML IV SCH (14:12)
[2017-01-15] MEDS ORDERED: BISACODYL 10 MG SUPPOSITORY RECTALLY PRN (14:30)
[2017-01-15] MEDS: ACETAMINOPHEN SR 650 MG TABLET PO PRN (14:36)
[2017-01-15] MEDS: SENNOSIDES 8.6 MG TABLET PO SCH ×2 (14:36→20:57)
[2017-01-15] MEDS: BISACODYL 5 MG E.C. TABLET PO SCH (14:37)
--- NOTE | 2017-01-15 14:40 | NUR ---
NAUSEA/BARRETT/LAXATIVES PRN ZOFRAN AND TYLENOL GIVEN FOR BARRETT AND NAUSEA. STOOL SOFTENERS AND LAXATIVES ADJUSTED AFTER NOTIFYING DR. WHITE OF PATIENT'S DOSING SCHEDULES AT HOME. ORDERS RECEIVED AND ENTERED. Addendum: 01/15/17 at 1752 by KYLEE GONZALES RN DULCOLAX ORDER WAS FIXED AT THIS TIME, WAS SUPPOSED TO BE PO INSTEAD OF RECTALLY FOR THE DAILY SCHEDULED. PO WAS ADMINISTERED AT 1437, NOT RECTAL DULCOLAX.
--- NOTE | 2017-01-15 18:33 | NUR ---
STATUS PT IS A&OX3. PRN'S GIVEN FOR NAUSEA/BARRETT/CONSTIPATION THROUGHOUT THE SHIFT. PT HAS ATTEMPTED TO USE THE BED [place] SEVERAL TIMES THE LAST COUPLE HOURS AND A DULCOLAX SUPPOSITORY WAS GIVEN WITHOUT A BM YET. PT IS PASSING FLATUS. PT HAS REFUSED TO TURN TO HER SIDES WHILE LAYING IN BED, REPORTS IT HURTS TO LAY ON HER SIDE. REFUSED TO GET UP TO THE CHAIR TODAY. PT REPORTS NOT FEELING WELL TODAY. BED ALARM ON. PT HAS NOT NEEDED O2/NC TODAY, USES CPAP DURING NAPS. BED ALARM ON.
--- NOTE | 2017-01-15 18:35 | NUR ---
APPETITE PT HAS A POOR APPETITE TODAY, REPORTS NOTHING TASTES GOOD, HAS REFUSED MEALS TODAY. DID TAKE IN SOME JELLO AND DIET LOUANN.
[2017-01-15] MEDS: MELATONIN 5 MG TABLET PO PRN (20:58)
[2017-01-15] MEDS ORDERED: SENNA + DOCUSATE TAB PO PRN (21:00)
[2017-01-15] MEDS ORDERED: SENNA + DOCUSATE TAB PO SCH (21:00)
[2017-01-15] MEDS ORDERED: SENNOSIDES 8.6 MG TABLET PO SCH (21:00)
[2017-01-16] VITALS (7 sets, daily range): BP systolic 125–175; BP diastolic 68–77; PULSE 70–113; RESP 16–24; TEMP 97.6–99.3; O2SAT 90–94
[2017-01-16] MEDS: ACETAMINOPHEN SR 650 MG TABLET PO PRN ×3 (00:32→17:22)
[2017-01-16 04:46] LABS: BASOPHILS % (AUTO) 0.2 % (0-2); EOSINOPHILS # (AUTO) 0.1 T/MM3 (0-0.5); EOSINOPHILS % (AUTO) 1.1 % (0-4); HGB - HEMOGLOBIN 11.7 GM/DL (12-16); IMMATURE GRANULOCYTE # (AUTO) 0.08 T/MM3 (0.00-0.03); IMMATURE GRANULOCYTE % (AUTO) 0.7 % (0.0-0.5); LYMPHOCYTES # (AUTO) 2.1 T/MM3 (1-4.8); LYMPHOCYTES % (AUTO) 18.7 % (23-45); MEAN CORPUSCULAR HGB 30.3 UUG (26-34); MEAN CORPUSCULAR HGB CONC(MCHC 31.6 GM/DL (31-37); MEAN CORPUSCULAR VOLUME 95.9 UM3 (80-100); MEAN PLATELET VOLUME 11.1 UM3 (9.4-12.4); MONOCYTES % (AUTO) 9.4 % (0-9.0); NEUTROPHILS #(AUTO)-ABSOLUTE 7.7 T/MM3 (1.8-7.7); NEUTROPHILS % (AUTO) 69.9 % (33-66); RED BLOOD COUNT 3.86 M/MM3 (4.00-5.20)
--- NOTE | 2017-01-16 04:58 | NUR ---
Pt struggled getting rid of a very bad headache. Once she fell asleep she stayed asleep. Tylenol had been given at 0030. That seemed to help more than the Tramadol.
[2017-01-16 05:17] LABS: ANION GAP 9 MEQ/L (5-15); BUN/CREATININE RATIO 21 RATIO (6-26); CHLORIDE 108 MEQ/L (98-107); CO2 - CARBON DIOXIDE 22 MEQ/L (22-30); CREATININE 2.1 MG/DL (0.7-1.2); GLOMERULAR FILTRATION RATE 24; GLUCOSE 126 MG/DL (65-110); POTASSIUM 4.9 MEQ/L (3.6-5); SODIUM 139 MEQ/L (134-144)
[2017-01-16] MEDS: CEFTRIAXONE 1 G in NORMAL SALINE 100 ML IV SCH (08:25)
[2017-01-16] MEDS: ENOXAPARIN 40 MG/0.4 ML INJECTION SQ SCH (08:26)
[2017-01-16] MEDS: SERTRALINE 100 MG TABLET PO SCH (08:27)
[2017-01-16] MEDS: ATENOLOL 50 MG TABLET PO SCH ×2 (08:27→20:03)
[2017-01-16] MEDS: SENNOSIDES 8.6 MG TABLET PO SCH ×2 (08:27→20:03)
[2017-01-16] MEDS: AMLODIPINE 5 MG TABLET PO SCH (08:28)
[2017-01-16] MEDS: BISACODYL 5 MG E.C. TABLET PO SCH (08:28)
[2017-01-16] MEDS ORDERED: BISACODYL 10 MG SUPPOSITORY RECTALLY SCH (09:00)
--- NOTE | 2017-01-16 09:56 | PNPDOC ---
BA ABARCA RN CARDIAC 01/16/17 0948: Subjective Date DATE: 01/16/17 TIME: 09:45 Subjective Sully had a headache and nausea last night, plus constipation. She didn't really have any results after a suppository. This morning, she still has a headache but it's not as severe. Nausea seems to have resolved. She doesn't want to try another suppository - she's taking her routine meds so she thinks she will have luck today. She doesn't want any narcotics b/c of her constipation. She states she rested fairly well. No shortness of breath. She denies abdominal discomfort. Objective Vital Signs Vital signs Vital Signs Date Time Temp Pulse Resp B/P Pulse Ox O2 Delivery O2 Flow Rate FiO2 01/16/17 08:16 113 18 01/16/17 08:13 98.1 175/73 94 Bi-pap 3.00 01/14/17 10:14 30 Height (Feet): 5 Height (Inches): 6.00 Weight (Kilograms): 266.700 General General Appearance: Alert, Obese, Orientated x 3, Well Nourished, Well Developed, No Acute Distress Eyes (Brief) Eyes: FOUND: PERRL, NOT FOUND: scleral icterus ENMT (Brief) ENMT: FOUND: mucosa moist, NOT FOUND: pharnyx erythema Respiratory (Brief) Respiratory: FOUND: equal bilaterally Comments ant. breath sounds clear Cardiovascular (Brief) Cardiac: FOUND: regular rate, regular rhythm Abdomen (Brief) Abdominal: FOUND: BS normo active x4, soft, tender (not as tender to LLQ), NOT FOUND: distended Extremities (Brief) Extremity : Extremity Finding: FOUND: edema (trace b/l LE) Musculoskeletal (Brief) Musculoskeletal: NOT FOUND: tenderness Integumentary (Brief) Integumentary: FOUND: dry, pink, warm Psychiatric (Brief) Psychiatric: FOUND: alert, attentive, normal affect, oriented Laboratory Laboratory Laboratory Tests 01/15/17 04:55 01/16/17 04:21 Laboratory Tests 01/15/17 04:55 01/16/17 04:21 Microbiology Microbiology Microbiology Date/Time Source Procedure Growth Status 01/16/17 04:21 Peripheral/Iv Start Blood Culture - Preliminary CULTURE INITIATED - RESULTS PENDING Resulted 01/16/17 04:21 Peripheral/Iv Start Blood Culture - Preliminary CULTURE INITIATED - RESULTS PENDING Resulted 01/14/17 08:07 Peripheral/Iv Start Blood Culture - Preliminary NO GROWTH AFTER 48 HOURS Resulted 01/14/17 08:02 Peripheral/Iv Start Gram Stain - Final Resulted 01/14/17 08:02 Blood Culture - Preliminary Escherichia Coli Resulted 01/14/17 09:31 Urine, Velazquez Indwelling Urine Culture - Final Escherichia Coli Complete Sepsis Diagnostic Criteria Sepsis Confirmed/Suspected Infection: Yes SIRS Criteria: Temp<=96.8 or >=100.4, Pulse >= 90 beats/min, RR > or = to 20 Severe Sepsis SpO2 <90% or ventilated, Lactate >=2.0 mg/dL Assessment & Plan Problems: (1) Severe sepsis Status: Acute Assessment & Plan: POA SIRS = tachycardia, tachypnea, fever Organ dysfunction = lactate 2.2; possibly respiratory dysfunction (further tests pending) (2) Bacteremia due to Escherichia coli Status: Acute Assessment & Plan: 1 of 2 BC positive from admit. (3) UTI (urinary tract infection) Status: Acute Qualifiers: Urinary tract infection type: acute cystitis Hematuria presence: with hematuria Qualified Codes: N30.01 - Acute cystitis with hematuria Assessment & Plan: POA - Urine culture with E coli. Velazquez inserted in ED (4) Constipation Status: Acute (5) BINU (acute kidney injury) Status: Acute (6) Respiratory failure Status: Acute Qualifiers: Chronicity: acute Respiratory failure complication: hypoxia Qualified Codes: J96.01 - Acute respiratory failure with hypoxia (7) Hyperkalemia Status: Resolved Assessment & Plan: POA (8) Hyperosmolality and hypernatremia Status: Resolved Assessment & Plan: POA (9) Diastolic CHF, chronic Status: Chronic (10) Type 2 diabetes mellitus Status: Chronic (11) Hypertension Status: Chronic (12) Hypercholesterolemia Status: Chronic (13) Chronic renal disease, stage IV Status: Chronic (14) Obstructive sleep apnea Status: Chronic (15) Morbid obesity with BMI of 50.0-59.9, adult Status: Chronic Plan/Intensity of Service E. coli UTI and bacteremia: Sensitive to Rocephin. Today is day #3. Repeat blood cultures were drawn this morning. Acute kidney injury: Improving on IV fluids. BUN is 44 and creatinine is 2.1. Potassium is 4.9. Will decrease rate of IV fluids. Possible pneumonia: Today will be day #3 of azithromycin. Continue Rocephin. Severe sepsis: Pro-calcitonin still markedly elevated, but is trending down. White blood cell count is back to normal range. She has gone about 36 hours since she last had a fever. Constipation and large colonic stool burden: Continue bowel motivation aids. Check for fecal impaction, and consider enema. Restart Reglan. Discussed with Dr. Garcia. DVT Prophylaxis: Lovenox Code Status Do Not Resuscitate Hospital Course Summary Disclaimer The hospital course summary below is not to be considered part of the above Progress Note. Hospital Course Summary 01/14/17: Admit, inpatient status under the hospitalist service. PCP: Amanda Kan APRN with [employer]. Her phone # is: . I spoke with her upon Sully's admission. She will fax us an updated med list. Severe sepsis secondary to UTI - SIRS criteria include tachycardia, tachypnea and fever of 102.6. - Organ dysfunction: Lactate of 2.2. Her acute respiratory failure could also be a sign of organ dysfunction, however, we need to evaluate underlying causes, especially given her history of diastolic CHF - Repeat lactate and follow culture results. - Velazquez was inserted in the emergency department. Goal would be to remove this as soon as possible and as soon as clinically stable. - Diet: Clear liquids. LLQ pain - With recent nausea and vomiting, concerning for pyelonephritis. - Patient also has a history of ileus and sigmoid resection, placing her at high risk for bowel obstruction and adhesions. - We'll obtain CT scan of her abdomen and pelvis without contrast. BINU and hyperkalemia - Baseline creatinine is about 2.0. - She received a liter of IV fluids in the ER. Will continue IV fluids. - Consider renal ultrasound. - Hold Lasix. - Monitor ins and outs closely Hypernatremia - Half-normal saline at 100 mL per hour. Watch for fluid overload. Acute respiratory failure - BiPAP and oxygen as needed. BiPAP at night for sleep apnea. She does not use daily O2. - History of diastolic CHF, will repeat echocardiogram today. Last echocardiogram was on 01/01/16, a technically difficult study that showed an EF of about 55%, mild mitral regurgitation, mild tricuspid regurgitation and mild pulmonary hypertension. - Trend serial troponin Type 2 diabetes - I requested hemoglobin A1c results from Amandajace Kan. - Monitor blood glucose. Morbid obesity and generalized Weakness - Consult PT/OT Code status: DNR Assessment and plan discussed with Dr. Garcia. 01/15 Not feeling as well today. More weak and tired. Frontal and temporal BARRETT. Dyspepsia and decreased appetite. Breathing stable-denies increased SOA or congestion. No pain with breathing or cough. No chest pressure or discomfort. Some discomfort with Velazquez cath. WBC with increase to 13.1. 1 of 2 BC positive for Ecoli. Urine positive for Ecoli. Creatinine 2.6-unchanged. Sodium and potassium normalized. Will continue Rocephin for urinary coverage - check on C/S. Continue IVF at 100cc/hr to help with hydration and BINU. PT/OT as pt able - feeling to weak and sick to attempt today. Will recheck blood culture and procalcitonin in am due to positive BC. 01/16/17 E. coli UTI and bacteremia: Sensitive to Rocephin. Today is day #3. Repeat blood cultures were drawn this morning. Acute kidney injury: Improving on IV fluids. BUN is 44 and creatinine is 2.1. Potassium is 4.9. Will decrease rate of IV fluids. Possible pneumonia: Today will be day #3 of azithromycin. Continue Rocephin. Severe sepsis: Pro-calcitonin still markedly elevated, but is trending down. White blood cell count is back to normal range. She has gone about 36 hours since she last had a fever. Constipation and large colonic stool burden: Continue bowel motivation aids. Check for fecal impaction, and consider enema. Restart Reglan. VARINDER GARCIA MD 01/16/17 1310: Assessment & Plan Problems: (1) Severe sepsis Status: Acute Assessment & Plan: POA SIRS = tachycardia, tachypnea, fever Organ dysfunction = lactate 2.2; possibly respiratory dysfunction (further tests pending) (2) Bacteremia due to Escherichia coli Status: Acute Assessment & Plan: 1 of 2 BC positive from admit. (3) UTI (urinary tract infection) Status: Acute Qualifiers: Urinary tract infection type: acute cystitis Hematuria presence: with hematuria Qualified Codes: N30.01 - Acute cystitis with hematuria Assessment & Plan: POA - Urine culture with E coli. Velazquez inserted in ED (4) Constipation Status: Acute (5) BINU (acute kidney injury) Status: Acute (6) Respiratory failure Status: Acute Qualifiers: Chronicity: acute Respiratory failure complication: hypoxia Qualified Codes: J96.01 - Acute respiratory failure with hypoxia (7) Hyperkalemia Status: Resolved Assessment & Plan: POA (8) Hyperosmolality and hypernatremia Status: Resolved Assessment & Plan: POA (9) Diastolic CHF, chronic Status: Chronic (10) Type 2 diabetes mellitus Status: Chronic (11) Hypertension Status: Chronic (12) Hypercholesterolemia Status: Chronic (13) Chronic renal disease, stage IV Status: Chronic (14) Obstructive sleep apnea Status: Chronic (15) Morbid obesity with BMI of 50.0-59.9, adult Status: Chronic Plan/Intensity of Service Have independently interviewed and examined pt. Chart reviewed. Case discussed with CM and my RN CARDIAC. Care plan developed with my supervision; agree with above. Doing better this afternoon. BARRETT better. Less nausea. Feels like could tolerate more than clear liquids. Breathing doing well-not feeling SOA or having cough/ congestion. No pain with breathing. Lungs: decreased, no distress CV: regular Ab: soft nt/nd BS present MSE: awake alert appropriate Plan: Continue with Rocephin for urinary coverage - can d/c Azithromycin. Could decrease IVF to 50 cc/hr. Will advance diet to regular. Encourage PT/OT to help increase functional status. Bladder retraining. Monitor lab. DVT Prophylaxis: SCD'S BA ABARCA APRN Jan 16, 2017 09:48 VARINDER GARCIA MD Jan 16, 2017 13:10
[2017-01-16] MEDS: 1/2 NS 1,000 ML IV SCH ×2 (10:39→13:15)
[2017-01-16] MEDS ORDERED: MINERAL OIL 133 ML ENEMA RECTALLY PRN (12:45)
--- NOTE | 2017-01-16 19:07 | NUR ---
SUMMARY SHIFT PT IS ALERTED AND ORIENTED. PT HAS BEEN IN RA BUT WEARS A BIPAP AT NIGHT AND OCCASIONALLY DURING THE DAY. PT HAS BEEN COOPERATIVE WITH TREATMENTS. PRN'S GIVEN FOR PAIN. PT IS IN BLADDER TRAINING AT THIS TIME.
[2017-01-16] MEDS: ONDANSETRON 4mg/2ml INJECTION IV PRN (22:13)
[2017-01-16] MEDS: HYDROMORPHONE 2mg/ml INJECTION IV PRN (22:14)
--- NOTE | 2017-01-16 22:20 | NUR ---
PRN PT WAS GIVEN IV PAIN MEDICATION FOR 7/10 HEADACHE AND ZOFRAN IV NOR NAUSEA. PT USING HOME CPAP AT THE MOMENT. ALERT AND ORIENTED. WILL CONTINUE TO MONITOR.
[2017-01-17] VITALS (8 sets, daily range): BP systolic 144–168; BP diastolic 71–81; PULSE 72–88; RESP 18–28; TEMP 97.6–98.7; O2SAT 90–94
[2017-01-17 05:32] LABS: BASOPHILS % (AUTO) 0.3 % (0-2); EOSINOPHILS # (AUTO) 0.3 T/MM3 (0-0.5); EOSINOPHILS % (AUTO) 2.9 % (0-4); HCT - HEMATOCRIT 38.6 % (36-46); HGB - HEMOGLOBIN 12.3 GM/DL (12-16); IMMATURE GRANULOCYTE # (AUTO) 0.08 T/MM3 (0.00-0.03); IMMATURE GRANULOCYTE % (AUTO) 0.7 % (0.0-0.5); LYMPHOCYTES # (AUTO) 2.4 T/MM3 (1-4.8); LYMPHOCYTES % (AUTO) 21.4 % (23-45); MEAN CORPUSCULAR HGB 30.7 UUG (26-34); MEAN CORPUSCULAR HGB CONC(MCHC 31.9 GM/DL (31-37); MEAN CORPUSCULAR VOLUME 96.3 UM3 (80-100); MEAN PLATELET VOLUME 11.3 UM3 (9.4-12.4); MONOCYTES # (AUTO) 1.3 T/MM3 (0-0.8); MONOCYTES % (AUTO) 11.3 % (0-9.0); NEUTROPHILS #(AUTO)-ABSOLUTE 7.1 T/MM3 (1.8-7.7); NEUTROPHILS % (AUTO) 63.4 % (33-66); RED BLOOD COUNT 4.01 M/MM3 (4.00-5.20); WBC - WHITE BLOOD COUNT 11.1 T/MM3 (4.5-11.0)
[2017-01-17 05:42] LABS: ANION GAP 11 MEQ/L (5-15); BUN/CREATININE RATIO 21 RATIO (6-26); CALCIUM 9.1 MG/DL (8.4-10.2); CHLORIDE 108 MEQ/L (98-107); CO2 - CARBON DIOXIDE 23 MEQ/L (22-30); GLOMERULAR FILTRATION RATE 25; GLUCOSE 111 MG/DL (65-110); POTASSIUM 5.1 MEQ/L (3.6-5); SODIUM 142 MEQ/L (134-144)
[2017-01-17] MEDS: ACETAMINOPHEN SR 650 MG TABLET PO PRN ×2 (05:59→20:43)
[2017-01-17] MEDS: 1/2 NS 1,000 ML IV SCH (06:02)
--- NOTE | 2017-01-17 06:13 | NUR ---
SUMMARY PT WAS GIVEN TYLENOL FOR 6/10 HEADACHE THIS MORNING. ALERT AND ORIENTED X3. PT SLEPT WITH CPAP ON ALL NIGHT. REFUSED TO BE REPOSITIONED SIDE TO SIDE. SHE WAS EDUCATED ABT CHANGING POSITION. CONTINUES ON BLADDER TRAINING. PT CALLS WHEN SHE FEELS TE BLADDER IS FULL. SCDS ON ALL NIGHT. CONTINUE ON IV FLUIDS THAT SHE TOLERATES WELL.
--- NOTE | 2017-01-17 07:49 | NUR ---
BEGINNING OF SHIFT BEDSIDE REPORT RECEIVED FROM REJI MOSCOSO. PT IS AWAKE, RATING HER HEADACHE A 3/10. DENIES ANY NEEDS AT THIS TIME. PT IS A&OX,3 AND WEARING CPAP. SUERO IN PLACE. NO SKIN ISSUES NOTED. WILL CONTINUE TO MONITOR PT.
[2017-01-17] MEDS: ENOXAPARIN 40 MG/0.4 ML INJECTION SQ SCH (08:23)
[2017-01-17] MEDS: SENNOSIDES 8.6 MG TABLET PO SCH ×2 (08:24→20:42)
[2017-01-17] MEDS: CEFTRIAXONE 1 G in NORMAL SALINE 100 ML IV SCH (08:24)
[2017-01-17] MEDS: BISACODYL 5 MG E.C. TABLET PO SCH (08:24)
[2017-01-17] MEDS: ATENOLOL 50 MG TABLET PO SCH ×2 (08:24→20:41)
[2017-01-17] MEDS: AMLODIPINE 5 MG TABLET PO SCH (08:25)
[2017-01-17] MEDS: SERTRALINE 100 MG TABLET PO SCH (08:25)
--- NOTE | 2017-01-17 10:23 | NUR ---
JOSE CM VISITED PT. CM EXPLAINED ROLE AND PROVIDED CONTACT INFORMATION. PT PLANS TO RETURN HOME WITH [facility] AT THE TIME OF D/C FROM [facility]. PT IS AWARE TO CONTACT CM IF NEEDS ARISE.
--- NOTE | 2017-01-17 14:17 | NUR ---
PT note: Pt declined to work with PT today - even offered bed level activity. Pt states she is having significant catheter pain and declines. Will continue to follow pt and work with her as she is able to tolerate.
[2017-01-17 15:01] LABS: BLOOD, URINE 2+ (NEGATIVE); COLOR,URINE YELLOW (YELLOW); LEUKOCYTE ESTERASE ,URINE NEGATIVE (NEGATIVE); NITRITE,URINE NEGATIVE (NEGATIVE); UROBILINOGEN,URINE 0.2 EU/DL (NORMAL)
--- NOTE | 2017-01-17 15:04 | PNPDOC ---
Subjective Date DATE: 01/17/17 TIME: 14:30 Subjective I was called by nursing staff this afternoon and notified that the patient was having pain associated with her Velazquez catheter. I went to see the patient and she is accompanied by her . She states she is having bladder spasms. She had a Velazquez catheter for one year and frequently had bladder spasms. Her Velazquez catheter was removed approximately one week prior to admission. Velazquez catheter was placed on admission and today she started having fairly severe bladder spasms. She has some chronic knee pains, but otherwise denies any other pain. She states she is breathing well and is currently on room air. She denies any nausea or vomiting. She had 2 moderate sized bowel movements today and 2 large bowel movements yesterday, and she no longer feels constipated. She states she chronically has incontinence when the Velazquez is out. She also states that at home they have been working on mobility and transfers out of bed to a chair. She states that she could walk with a walker if somebody was in front of her and somebody behind her. Objective Vital Signs Vital signs Vital Signs Date Time Temp Pulse Resp B/P Pulse Ox O2 Delivery O2 Flow Rate FiO2 01/17/17 11:53 98.7 80 20 168/79 90 Room Air 01/17/17 04:19 3.00 01/14/17 10:14 30 I&O yesterday 4200/4150 GEN-alert, oriented 3, mild distress secondary to pain, pleasant, morbidly obese HEENT-, oropharynx is moist CV-regular rate and rhythm CHEST-to auscultation bilaterally ABD-off, obese, nontender, nondistended with positive bowel sounds -in place with normal colored urine EXT-SCDs are on, no edema NEURO-focal deficits SKIN-warm and dry and without rashes Height (Feet): 5 Height (Inches): 6.00 Weight (Kilograms): 164.700 Laboratory Laboratory Laboratory Tests 01/16/17 04:21 01/17/17 04:39 Laboratory Tests 01/16/17 04:21 01/17/17 04:39 Microbiology Microbiology Microbiology Date/Time Source Procedure Growth Status 01/16/17 04:21 Peripheral/Iv Start Blood Culture - Preliminary NO GROWTH AFTER 24 HOURS Resulted 01/16/17 04:21 Peripheral/Iv Start Blood Culture - Preliminary NO GROWTH AFTER 24 HOURS Resulted 1 of 2 blood cultures positive for Escherichia coli sensitive to all antibiotics tested except for ampicillin Urine culture positive for Escherichia coli with the same sensitivity pattern Sepsis Diagnostic Criteria Sepsis Confirmed/Suspected Infection: Yes SIRS Criteria: Temp<=96.8 or >=100.4, Pulse >= 90 beats/min, RR > or = to 20 Severe Sepsis SpO2 <90% or ventilated, Lactate >=2.0 mg/dL Assessment & Plan Problems: (1) Severe sepsis Status: Acute Assessment & Plan: POA SIRS = tachycardia, tachypnea, fever Organ dysfunction = lactate 2.2; possibly respiratory dysfunction (further tests pending) (2) Bacteremia due to Escherichia coli Status: Acute Assessment & Plan: 1 of 2 BC positive from admit. (3) UTI (urinary tract infection) Status: Acute Qualifiers: Urinary tract infection type: acute cystitis Hematuria presence: with hematuria Qualified Codes: N30.01 - Acute cystitis with hematuria Assessment & Plan: POA - Urine culture with E coli. Velazquez inserted in ED (4) Constipation Status: Resolved (5) BINU (acute kidney injury) Status: Acute (6) Respiratory failure Status: Resolved Qualifiers: Chronicity: acute Respiratory failure complication: hypoxia Qualified Codes: J96.01 - Acute respiratory failure with hypoxia (7) Hyperkalemia Status: Resolved Assessment & Plan: POA (8) Hyperosmolality and hypernatremia Status: Resolved Assessment & Plan: POA (9) Diastolic CHF, chronic Status: Chronic (10) Type 2 diabetes mellitus Status: Chronic (11) Hypertension Status: Chronic (12) Hypercholesterolemia Status: Chronic (13) Chronic renal disease, stage IV Status: Chronic Assessment & Plan: Called [facility] and they stated creatinine was 2.5 on 12/23/2016 and was 2.0 on 08/30/2016. (14) Obstructive sleep apnea Status: Chronic (15) Morbid obesity with BMI of 50.0-59.9, adult Status: Chronic Assessment 01/17/2017-Dr. Lau Escherichia coli bacteremia with Escherichia coli UTI with same sensitivities. On day 3 Rocephin. Severe sepsis-resolved Bladder spasms, likely related Velazquez catheter-we'll DC catheter today and monitor and make sure patient is urinating okay Mild acute kidney injury on chronic kidney disease. Baseline creatinine is approximately 2.0-2.5. DC IV fluids Acute hypoxic respiratory failure likely in part related to sepsis-improved Hyperglycemia without diagnosis of diabetes-check hemoglobin A1c Obstructive sleep apnea-continue CPAP at night Chronic diastolic heart [id number] IV fluids Mild pulmonary hypertension Constipation-resolved Elevated troponin on admission-trending down-possibly related to sepsis and acute kidney injury Hypertension-blood pressure is a little up, possibly secondary to pain. Continue current medication and monitor closely Hyperkalemia-she is not on any medications which should raise her potassium. Will recheck tomorrow. May need low potassium diet. Recheck CBC and renal panel tomorrow. Check hemoglobin A1c on the blood lab today. Continue current medications. DC IV fluids. DC Velazquez catheter. Monitor urine output. I did call and talk with the nurse at [facility] and obtained baseline creatinine. Discussed with the patient's nurse and patient and today. Greater than 35 minutes of time was spent seeing and evaluating the patient today, reviewing chart, and determining care plan. DVT Prophylaxis: Lovenox Code Status Do Not Resuscitate Hospital Course Summary Disclaimer The hospital course summary below is not to be considered part of the above Progress Note. Hospital Course Summary 01/14/17: Admit, inpatient status under the hospitalist service. PCP: Amanda Kan APRN with [facility]. Her phone # is: . I spoke with her upon Sully's admission. She will fax us an updated med list. Severe sepsis secondary to UTI - SIRS criteria include tachycardia, tachypnea and fever of 102.6. - Organ dysfunction: Lactate of 2.2. Her acute respiratory failure could also be a sign of organ dysfunction, however, we need to evaluate underlying causes, especially given her history of diastolic CHF - Repeat lactate and follow culture results. - Velazquez was inserted in the emergency department. Goal would be to remove this as soon as possible and as soon as clinically stable. - Diet: Clear liquids. LLQ pain - With recent nausea and vomiting, concerning for pyelonephritis. - Patient also has a history of ileus and sigmoid resection, placing her at high risk for bowel obstruction and adhesions. - We'll obtain CT scan of her abdomen and pelvis without contrast. BINU and hyperkalemia - Baseline creatinine is about 2.0. - She received a liter of IV fluids in the ER. Will continue IV fluids. - Consider renal ultrasound. - Hold Lasix. - Monitor ins and outs closely Hypernatremia - Half-normal saline at 100 mL per hour. Watch for fluid overload. Acute respiratory failure - BiPAP and oxygen as needed. BiPAP at night for sleep apnea. She does not use daily O2. - History of diastolic CHF, will repeat echocardiogram today. Last echocardiogram was on 01/01/16, a technically difficult study that showed an EF of about 55%, mild mitral regurgitation, mild tricuspid regurgitation and mild pulmonary hypertension. - Trend serial troponin Type 2 diabetes - I requested hemoglobin A1c results from Amanda Kan. - Monitor blood glucose. Morbid obesity and generalized Weakness - Consult PT/OT Code status: DNR Assessment and plan discussed with Dr. Garcia. 01/15 Not feeling as well today. More weak and tired. Frontal and temporal BARRETT. Dyspepsia and decreased appetite. Breathing stable-denies increased SOA or congestion. No pain with breathing or cough. No chest pressure or discomfort. Some discomfort with Velazquez cath. WBC with increase to 13.1. 1 of 2 BC positive for Ecoli. Urine positive for Ecoli. Creatinine 2.6-unchanged. Sodium and potassium normalized. Will continue Rocephin for urinary coverage - check on C/S. Continue IVF at 100cc/hr to help with hydration and BINU. PT/OT as pt able - feeling to weak and sick to attempt today. Will recheck blood culture and procalcitonin in am due to positive BC. 01/16/17 E. coli UTI and bacteremia: Sensitive to Rocephin. Today is day #3. Repeat blood cultures were drawn this morning. Acute kidney injury: Improving on IV fluids. BUN is 44 and creatinine is 2.1. Potassium is 4.9. Will decrease rate of IV fluids. Possible pneumonia: Today will be day #3 of azithromycin. Continue Rocephin. Severe sepsis: Pro-calcitonin still markedly elevated, but is trending down. White blood cell count is back to normal range. She has gone about 36 hours since she last had a fever. Constipation and large colonic stool burden: Continue bowel motivation aids. Check for fecal impaction, and consider enema. Restart Regreinaldo. DANY LAU MD Jan 17, 2017 14:33
[2017-01-17 15:21] LABS: RBC,URINE 0-1 /HPF (0-3); WBC,URINE 0-1 /HPF (0-5)
[2017-01-17 15:22] LABS: BACTERIA,URINE TRACE (NEGATIVE); SQUAMOUS EPITHELIAL CELL,UR 0-5
--- NOTE | 2017-01-17 17:20 | NUR ---
UPDATE DR MCCURDY INFORMED PT REPORTED FEELING THE CHILLS AND HER FACE FEELING HOT, WELL FEELING SOA. PTS O2 SAT WAS TAKEN AND IT WAS 88%, PT WAS PLACED ON 2L OF NC AND REST OF VS WERE TAKEN, LOOK IN CHART FOR VALUES.
[2017-01-17 18:20] LABS: HCT - HEMATOCRIT 39.7 % (36-46); HGB - HEMOGLOBIN 12.9 GM/DL (12-16); MEAN CORPUSCULAR HGB 30.9 UUG (26-34); MEAN CORPUSCULAR HGB CONC(MCHC 32.5 GM/DL (31-37); MEAN CORPUSCULAR VOLUME 95.2 UM3 (80-100); MEAN PLATELET VOLUME 10.9 UM3 (9.4-12.4); RED BLOOD COUNT 4.17 M/MM3 (4.00-5.20); WBC - WHITE BLOOD COUNT 11.9 T/MM3 (4.5-11.0)
[2017-01-17 18:32] LABS: ALBUMIN 3.9 G/DL (3.5-5.0); ANION GAP 13 MEQ/L (5-15); BUN/CREATININE RATIO 19 RATIO (6-26); CALCIUM 9.6 MG/DL (8.4-10.2); CHLORIDE 109 MEQ/L (98-107); CO2 - CARBON DIOXIDE 22 MEQ/L (22-30); CREATININE 2.1 MG/DL (0.7-1.2); GLOMERULAR FILTRATION RATE 24; GLUCOSE 112 MG/DL (65-110); PHOSPHORUS 2.7 MG/DL (2.5-4.5); POTASSIUM 5.2 MEQ/L (3.6-5); SODIUM 144 MEQ/L (134-144)
[2017-01-17 18:35] LABS: EOSINOPHILS # (MANUAL) 0.1 T/MM3 (0-0.5); MONOCYTES # (MANUAL) 1.1 T/MM3 (0-0.8); NEUTROPHILS #(MANUAL)-ABSOLUTE 7.7 T/MM3 (1.8-7.7); TOTAL CELLS COUNTED 100 %
--- NOTE | 2017-01-17 18:35 | NUR ---
UPDATE/ END OF SHIFT. DR MCCURDY NOTIFIED OF PTS ABG VALUES. SHE STATES SHE WILL BE STOPPING BY TO CHECK ON PT IN A FEW MINS. PTS BED LINES CHANGED, CAIN CARE PROVIDED AND BRIEF REPLACED AFTER SHE URINATED AND HAD A BM. PT CONTINUED TO FEEL SOA, SATTING 93% ON 3LNC. PT DOES NOT LONGER HAVE 0.45% NS RUNNING OR A SUERO. BLOOD SUGARS HAVE BEEN BELOW 200 TODAY. PT IS STILL A&OX3, PTS IS CURRENTLY AT BEDSIDE.
[2017-01-17] MEDS: ONDANSETRON 4mg/2ml INJECTION IV PRN (20:41)
[2017-01-17] MEDS: MELATONIN 5 MG TABLET PO PRN (21:24)
[2017-01-18 00:04] VITALS: BP 161/81; PULSE 74; RESP 20; TEMP 98.3; O2SAT 93
[2017-01-18 03:48] VITALS: BP 173/86; PULSE 70; RESP 18; TEMP 97.6; O2SAT 91
--- NOTE | 2017-01-18 05:10 | NUR ---
Status Pt A/Ox3. Requested PRN tylenol, PRN melatonin, and PRN zofran. Reported that zofran decreased nausea "somewhat" and the Tylenol helped the headache significantly. Turned q2 hours. Frequently incontinent, but used the bedpan this morning at approx 0400 and was continent of urine at that time. On home Bi-PAP with 3 L O2 during night. Continuous oximetry monitored and stable during night. in room in evening. Bed alarm on and call light within reach. Will continue to monitor.
[2017-01-18 05:51] LABS: HCT - HEMATOCRIT 37.7 % (36-46); HGB - HEMOGLOBIN 12.1 GM/DL (12-16); MEAN CORPUSCULAR HGB 30.7 UUG (26-34); MEAN CORPUSCULAR HGB CONC(MCHC 32.1 GM/DL (31-37); MEAN CORPUSCULAR VOLUME 95.7 UM3 (80-100); MEAN PLATELET VOLUME 11.1 UM3 (9.4-12.4); RED BLOOD COUNT 3.94 M/MM3 (4.00-5.20); WBC - WHITE BLOOD COUNT 9.9 T/MM3 (4.5-11.0)
[2017-01-18 06:06] LABS: ALBUMIN 3.5 G/DL (3.5-5.0); ANION GAP 11 MEQ/L (5-15); BUN/CREATININE RATIO 19 RATIO (6-26); CALCIUM 9.5 MG/DL (8.4-10.2); CHLORIDE 111 MEQ/L (98-107); CO2 - CARBON DIOXIDE 23 MEQ/L (22-30); GLOMERULAR FILTRATION RATE 25; GLUCOSE 126 MG/DL (65-110); PHOSPHORUS 3.8 MG/DL (2.5-4.5); POTASSIUM 4.7 MEQ/L (3.6-5); SODIUM 145 MEQ/L (134-144)
[2017-01-18 06:14] LABS: BAND NEUTROPHILS # 0.1 T/MM3; EOSINOPHILS # (MANUAL) 0.6 T/MM3 (0-0.5); LYMPHOCYTES # (MANUAL) 1.5 T/MM3 (1-4.8); MONOCYTES # (MANUAL) 0.9 T/MM3 (0-0.8); NEUTROPHILS #(MANUAL)-ABSOLUTE 6.8 T/MM3 (1.8-7.7); TOTAL CELLS COUNTED 100 %
[2017-01-18 08:30] VITALS: BP 172/79; PULSE 72; RESP 22; TEMP 98.5; O2SAT 93
[2017-01-18 08:32] VITALS: PULSE 70; RESP 22
--- NOTE | 2017-01-18 09:03 | PNPDOC ---
Subjective Date DATE: 01/18/17 TIME: 08:54 Subjective Mrs. Arshad states she feels better today. She states she is breathing okay but is on 3 L of oxygen. She has a mild headache, but it is better than yesterday. She denies any nausea or vomiting. She is more continent of urine today than yesterday. She has no pain except in her knees which is chronic from arthritis. She has had no further chills since an episode last night. Objective Vital Signs Vital signs Vital Signs Date Time Temp Pulse Resp B/P Pulse Ox O2 Delivery O2 Flow Rate FiO2 01/18/17 08:32 70 22 01/18/17 08:30 98.5 93 Nasal Cannula 3.00 01/18/17 03:48 173/86 01/14/17 10:14 30 GEN-alert, oriented, no acute distress HEENT-sclera anicteric, oropharynx is moist NECK-supple CV-regular rate and rhythm CHEST-clear to auscultation bilaterally from the anterior ABD-soft, nontender, nondistended with positive bowel sounds -no Velazquez EXT-SCDs are on, no edema NEURO-generalized weakness, no focal deficits SKIN-warm and dry and without rashes Height (Feet): 5 Height (Inches): 6.00 Weight (Kilograms): 162.700 Laboratory Laboratory Item Value Date Time Procalcitonin 37.17 NG/ML *H 01/17/17 1756 Procalcitonin 82.14 NG/ML *H 01/16/17 0421 Procalcitonin 134.38 NG/ML *H 01/15/17 0455 Plasma Lactate 1.0 MMOL/L 01/17/17 1756 Laboratory Tests 01/17/17 04:39 01/17/17 17:56 01/18/17 05:39 Laboratory Tests 01/17/17 04:39 01/17/17 17:56 01/18/17 05:39 Microbiology Microbiology Microbiology Date/Time Source Procedure Growth Status 01/17/17 18:11 Peripheral/Iv Start Blood Culture - Preliminary CULTURE INITIATED - RESULTS PENDING Resulted 01/17/17 17:56 Peripheral/Iv Start Blood Culture - Preliminary CULTURE INITIATED - RESULTS PENDING Resulted 01/16/17 04:21 Peripheral/Iv Start Blood Culture - Preliminary NO GROWTH AFTER 48 HOURS Resulted 01/16/17 04:21 Peripheral/Iv Start Blood Culture - Preliminary NO GROWTH AFTER 48 HOURS Resulted Urine culture and blood cultures from admission positive for Escherichia coli sensitive to Rocephin Radiology Chest x-ray yesterday on my read and per radiology shows no acute cardiopulmonary abnormality Renal ultrasound yesterday is limited due to body habitus, but per radiology shows no obvious hydronephrosis or stones Sepsis Diagnostic Criteria Sepsis Confirmed/Suspected Infection: Yes SIRS Criteria: Temp<=96.8 or >=100.4, Pulse >= 90 beats/min, RR > or = to 20 Severe Sepsis SpO2 <90% or ventilated, Lactate >=2.0 mg/dL Assessment & Plan Problems: (1) Severe sepsis Status: Resolved Assessment & Plan: POA SIRS = tachycardia, tachypnea, fever Organ dysfunction = lactate 2.2; possibly respiratory dysfunction (further tests pending) (2) Bacteremia due to Escherichia coli Status: Acute Assessment & Plan: 1 of 2 BC positive from admit. (3) UTI (urinary tract infection) Status: Acute Qualifiers: Urinary tract infection type: acute cystitis Hematuria presence: with hematuria Qualified Codes: N30.01 - Acute cystitis with hematuria Assessment & Plan: POA - Urine culture with E coli. Velazquez inserted in ED (4) Constipation Status: Resolved (5) BINU (acute kidney injury) Status: Resolved (6) Respiratory failure Status: Resolved Qualifiers: Chronicity: acute Respiratory failure complication: hypoxia Qualified Codes: J96.01 - Acute respiratory failure with hypoxia (7) Hyperkalemia Status: Resolved Assessment & Plan: POA (8) Hyperosmolality and hypernatremia Status: Resolved Assessment & Plan: POA (9) Diastolic CHF, chronic Status: Chronic (10) Type 2 diabetes mellitus Status: Chronic (11) Hypertension Status: Chronic (12) Hypercholesterolemia Status: Chronic (13) Chronic renal disease, stage IV Status: Chronic Assessment & Plan: [facility] and they stated creatinine was 2.5 on 12/23/2016 and was 2.0 on 08/30/2016. (14) Obstructive sleep apnea Status: Chronic Assessment & Plan: CPAP at home on room air (15) Morbid obesity with BMI of 50.0-59.9, adult Status: Chronic Assessment 01/18/2017-Dr. Lau Escherichia coli bacteremia with Escherichia coli UTI with same sensitivities. On day 4 Rocephin. The patient had chills last night and blood cultures were repeated. Lactate was normal. Pro-calcitonin continued to trend down. White count has improved today. Severe sepsis-resolved Bladder spasms, likely related Velazquez catheter-resolved with DC Velazquez 01/17/2017 Mild acute kidney injury-resolved chronic kidney disease. Baseline creatinine is approximately 2.0-2.5. Acute hypoxic respiratory failure likely in part related to sepsis-requiring increased oxygen. Chest x-ray clear. Restart Lasix. Recommend incentive spirometry 10 times an hour while awake Hyperglycemia without diagnosis of diabetes-A1c 5.9 Obstructive sleep apnea-continue CPAP at night Chronic diastolic heart failure-restart Lasix Mild pulmonary hypertension Constipation-resolved Elevated troponin on admission-trending down-possibly related to sepsis and acute kidney injury Hypertension-blood pressure is a little up, possibly secondary to pain. Continue Norvasc and atenolol. Restart Lasix [id number] Lasix Overall, the patient appears to be doing better today. Continue Rocephin. She will likely need 2 weeks of antibiotics for bacteremia with Escherichia coli. Discuss with infectious disease on Friday with her antibiotics need to be IV versus by mouth. Restart home Lasix dose. Recheck lab work tomorrow. Increase activity with PT and OT today. Incentive spirometer. Wean down O2 if able. DVT Prophylaxis: Lovenox Code Status Do Not Resuscitate Hospital Course Summary Disclaimer The hospital course summary below is not to be considered part of the above Progress Note. Hospital Course Summary 01/14/17: Admit, inpatient status under the hospitalist service. PCP: Amanda Kan APRN with [facility]. Her phone # is: . I spoke with her upon Sully's admission. She will fax us an updated med list. Severe sepsis secondary to UTI - SIRS criteria include tachycardia, tachypnea and fever of 102.6. - Organ dysfunction: Lactate of 2.2. Her acute respiratory failure could also be a sign of organ dysfunction, however, we need to evaluate underlying causes, especially given her history of diastolic CHF - Repeat lactate and follow culture results. - Velazquez was inserted in the emergency department. Goal would be to remove this as soon as possible and as soon as clinically stable. - Diet: Clear liquids. LLQ pain - With recent nausea and vomiting, concerning for pyelonephritis. - Patient also has a history of ileus and sigmoid resection, placing her at high risk for bowel obstruction and adhesions. - We'll obtain CT scan of her abdomen and pelvis without contrast. BINU and hyperkalemia - Baseline creatinine is about 2.0. - She received a liter of IV fluids in the ER. Will continue IV fluids. - Consider renal ultrasound. - Hold Lasix. - Monitor ins and outs closely Hypernatremia - Half-normal saline at 100 mL per hour. Watch for fluid overload. Acute respiratory failure - BiPAP and oxygen as needed. BiPAP at night for sleep apnea. She does not use daily O2. - History of diastolic CHF, will repeat echocardiogram today. Last echocardiogram was on 01/01/16, a technically difficult study that showed an EF of about 55%, mild mitral regurgitation, mild tricuspid regurgitation and mild pulmonary hypertension. - Trend serial troponin Type 2 diabetes - I requested hemoglobin A1c results from Amanda Kan. - Monitor blood glucose. Morbid obesity and generalized Weakness - Consult PT/OT Code status: DNR Assessment and plan discussed with Dr. Garcia. 01/15 Not feeling as well today. More weak and tired. Frontal and temporal BARRETT. Dyspepsia and decreased appetite. Breathing stable-denies increased SOA or congestion. No pain with breathing or cough. No chest pressure or discomfort. Some discomfort with Velazquez cath. WBC with increase to 13.1. 1 of 2 BC positive for Ecoli. Urine positive for Ecoli. Creatinine 2.6-unchanged. Sodium and potassium normalized. Will continue Rocephin for urinary coverage - check on C/S. Continue IVF at 100cc/hr to help with hydration and BINU. PT/OT as pt able - feeling to weak and sick to attempt today. Will recheck blood culture and procalcitonin in am due to positive BC. 01/16/17 E. coli UTI and bacteremia: Sensitive to Rocephin. Today is day #3. Repeat blood cultures were drawn this morning. Acute kidney injury: Improving on IV fluids. BUN is 44 and creatinine is 2.1. Potassium is 4.9. Will decrease rate of IV fluids. Possible pneumonia: Today will be day #3 of azithromycin. Continue Rocephin. Severe sepsis: Pro-calcitonin still markedly elevated, but is trending down. White blood cell count is back to normal range. She has gone about 36 hours since she last had a fever. Constipation and large colonic stool burden: Continue bowel motivation aids. Check for fecal impaction, and consider enema. Restart Reglan. 01/17/2017-Dr. Lau Escherichia coli bacteremia with Escherichia coli UTI with same sensitivities. On day 3 Rocephin. Severe sepsis-resolved Bladder spasms, likely related Velazquez catheter-we'll DC catheter today and monitor and make sure patient is urinating okay Mild acute kidney injury on chronic kidney disease. Baseline creatinine is approximately 2.0-2.5. DC IV fluids Acute hypoxic respiratory failure likely in part related to sepsis-improved Hyperglycemia without diagnosis of diabetes-check hemoglobin A1c Obstructive sleep apnea-continue CPAP at night Chronic diastolic heart [id number] IV fluids Mild pulmonary hypertension Constipation-resolved Elevated troponin on admission-trending down-possibly related to sepsis and acute kidney injury Hypertension-blood pressure is a little up, possibly secondary to pain. Continue current medication and monitor closely Hyperkalemia-she is not on any medications which should raise her potassium. Will recheck tomorrow. May need low potassium diet. Recheck CBC and renal panel tomorrow. Check hemoglobin A1c on the blood lab today. Continue current medications. DC IV fluids. DC Velazquez catheter. Monitor urine output. I did call and talk [facility] nurse at [facility] and obtained baseline creatinine. Discussed with the patient's nurse and patient and today. Greater than 35 minutes of time was spent seeing and evaluating the patient today, reviewing chart, and determining care plan. DANY LAU MD Jan 18, 2017 08:57
[2017-01-18] MEDS: SENNOSIDES 8.6 MG TABLET PO SCH ×2 (09:07→20:56)
[2017-01-18] MEDS: ATENOLOL 50 MG TABLET PO SCH ×2 (09:07→20:56)
[2017-01-18] MEDS: AMLODIPINE 5 MG TABLET PO SCH (09:07)
[2017-01-18] MEDS: CEFTRIAXONE 1 G in NORMAL SALINE 100 ML IV SCH (09:07)
[2017-01-18] MEDS: ENOXAPARIN 40 MG/0.4 ML INJECTION SQ SCH (09:08)
[2017-01-18] MEDS: ACETAMINOPHEN SR 650 MG TABLET PO PRN ×2 (09:08→21:04)
[2017-01-18] MEDS: SERTRALINE 100 MG TABLET PO SCH (09:08)
[2017-01-18] MEDS: BISACODYL 5 MG E.C. TABLET PO SCH (09:10)
[2017-01-18 15:56] VITALS: BP 159/83; PULSE 71; RESP 18; TEMP 98.4; O2SAT 94
--- NOTE | 2017-01-18 18:13 | NUR ---
STATUS PATIENT STABLE THIS SHIFT ON 3L O2 PER NC. PATIENT HAS BEEN CONTINENT AND INCONTINENT SEVERAL TIMES TODAY. PATIENT WAS TURNED IN BED AND REPOSITIONED FREQUENTLY BUT DENIED WANTING PILLOWS BEHIND HER BACK. PATIENT DID ASSIST NURSING STAFF WITH BATH AND REPOSITIONING IN BED. RN HAD ENCOURAGED PATIENT TO SIT ON EDGE OF BED OR STAND AND PATIENT STATED SHE WANTED TO WAIT FOR PT AND AFRAID SHE COULD NOT. PATIENT VERY DILIGENT ABOUT INCENTIVE SPIROMETRY. PATIENT RECEIVED TYLENOL THIS AM BUT HAS DENIED NEED FOR OTHER PRN'S THIS SHIFT. FREQUENT CAIN AND SKIN CARE PROVIDED. WILL CONTINUE TO MONITOR.
[2017-01-18 20:54] VITALS: BP 173/81; PULSE 81
[2017-01-18] MEDS: MELATONIN 5 MG TABLET PO PRN (21:04)
[2017-01-19] VITALS (10 sets, daily range): BP systolic 143–155; BP diastolic 71–88; PULSE 65–75; RESP 16–22; TEMP 97.4–98.7; O2SAT 89–95
--- NOTE | 2017-01-19 07:27 | NUR ---
SHIFT REPORT: PT IS A&OX3, FRIENDLY, COOPERATIVE, AND SLEPT WELL DURING THE NIGHT. PT IS ON 3L 02 PER NC, HAS CALLED SEVERAL TIMES DURING THE NIGHT TO USE THE BED [place], AND ONCE INCONTINENT. PT ASSISTS WITH TURNING, ASKED FOR PRN TYLENOL FOR KNEE PAIN, AND USES BI-PAP DURING THE NIGHT. CALL LIGHT WITHIN REACH, BED ALARM ON.
[2017-01-19] MEDS: CEFTRIAXONE 1 G in NORMAL SALINE 100 ML IV SCH (08:47)
[2017-01-19] MEDS: ENOXAPARIN 40 MG/0.4 ML INJECTION SQ SCH (08:47)
[2017-01-19] MEDS: BISACODYL 5 MG E.C. TABLET PO SCH (08:48)
[2017-01-19] MEDS: AMLODIPINE 5 MG TABLET PO SCH (08:48)
[2017-01-19] MEDS: ATENOLOL 50 MG TABLET PO SCH ×2 (08:48→20:30)
[2017-01-19] MEDS: SERTRALINE 100 MG TABLET PO SCH (08:48)
[2017-01-19] MEDS: SENNOSIDES 8.6 MG TABLET PO SCH ×2 (08:49→20:30)
[2017-01-19] MEDS: NORMAL SALINE 500 ML IV PRN (08:49)
[2017-01-19 09:46] LABS: BASOPHILS # (AUTO) 0.1 T/MM3 (0-0.2); BASOPHILS % (AUTO) 0.5 % (0-2); EOSINOPHILS # (AUTO) 0.5 T/MM3 (0-0.5); EOSINOPHILS % (AUTO) 5.4 % (0-4); HGB - HEMOGLOBIN 12.5 GM/DL (12-16); IMMATURE GRANULOCYTE # (AUTO) 0.15 T/MM3 (0.00-0.03); IMMATURE GRANULOCYTE % (AUTO) 1.6 % (0.0-0.5); LYMPHOCYTES # (AUTO) 2.1 T/MM3 (1-4.8); LYMPHOCYTES % (AUTO) 22.2 % (23-45); MEAN CORPUSCULAR HGB 30.7 UUG (26-34); MEAN CORPUSCULAR HGB CONC(MCHC 32.1 GM/DL (31-37); MEAN CORPUSCULAR VOLUME 95.8 UM3 (80-100); MEAN PLATELET VOLUME 11.2 UM3 (9.4-12.4); MONOCYTES # (AUTO) 0.9 T/MM3 (0-0.8); MONOCYTES % (AUTO) 9.6 % (0-9.0); NEUTROPHILS #(AUTO)-ABSOLUTE 5.7 T/MM3 (1.8-7.7); NEUTROPHILS % (AUTO) 60.7 % (33-66); RED BLOOD COUNT 4.07 M/MM3 (4.00-5.20); WBC - WHITE BLOOD COUNT 9.4 T/MM3 (4.5-11.0)
[2017-01-19 09:51] LABS: ALBUMIN 3.7 G/DL (3.5-5.0); ANION GAP 13 MEQ/L (5-15); BUN/CREATININE RATIO 18 RATIO (6-26); CALCIUM 9.3 MG/DL (8.4-10.2); CHLORIDE 109 MEQ/L (98-107); CO2 - CARBON DIOXIDE 23 MEQ/L (22-30); GLOMERULAR FILTRATION RATE 25; GLUCOSE 180 MG/DL (65-110); POTASSIUM 4.8 MEQ/L (3.6-5); SODIUM 145 MEQ/L (134-144)
--- NOTE | 2017-01-19 10:14 | DI ---
Indication: ITS.REASON: rule out hydronephrosis, retention PROCEDURE: US RENAL: Encounter: Initial Comparison: Renal ultrasound dated January 09, 2016 Technique: Grayscale and color Doppler sonographic imaging of both kidneys was performed. FINDINGS: There is limited exam due to poor acoustic windows and patient body habitus. Both kidneys are present with no gross hydronephrosis. The right kidney measures 18.4 cm in length, and the left kidney measures 15.6 cm in length. IMPRESSION: No gross hydronephrosis. There is a preliminary report by [employer] [facility]ologic. .
--- NOTE | 2017-01-19 10:15 | DI ---
Indication: ITS.REASON: hypoxia PROCEDURE: CHEST 1 VIEW: Encounter: Initial Comparison: January 14, 2017 Findings: The lungs are stable in appearance without new focal airspace consolidation. There is no pleural effusion or pneumothorax. The heart size, pulmonary vascularity and mediastinal contours are unchanged. IMPRESSION: Stable appearance of the chest. There is a preliminary report by [facility]. .
--- NOTE | 2017-01-19 10:30 | PNPDOC ---
BA ABARCA P[employer] 01/19/17 1023: Subjective Date DATE: 01/19/17 TIME: 10:20 Subjective Sully was watching television, lying in bed. She states that she had a BARRETT last night - she asked for her oxygen to be increased to 3L, and that helped the BARRETT go away. She reports having some chills again this morning - she wonders if chills might be associated with the blood thinner (Lovenox)? She denies fever. She has had some mild shortness of breath - at home she's not on oxygen, just BiPAP HS. Regarding her LLQ pain - this is much better, but she states it still feels a little uncomfortable. She's had bowel movements daily x3 days. Objective Vital Signs Vital signs Vital Signs Date Time Temp Pulse Resp B/P Pulse Ox O2 Delivery O2 Flow Rate FiO2 01/19/17 08:10 92 Nasal Cannula 1.00 01/19/17 07:49 97.4 69 22 155/77 Height (Feet): 5 Height (Inches): 6.00 Weight (Kilograms): 164.000 General General Appearance: Alert, Obese, Orientated x 3, Well Nourished, Well Developed, No Acute Distress Eyes (Brief) Eyes: FOUND: PERRL, NOT FOUND: scleral icterus ENMT (Brief) ENMT: FOUND: mucosa moist, NOT FOUND: pharnyx erythema Respiratory (Brief) Respiratory: FOUND: equal bilaterally Comments decreased breath sounds both anteriorly and posteriorly Cardiovascular (Brief) Cardiac: FOUND: regular rate, regular rhythm Abdomen (Brief) Abdominal: FOUND: BS normo active x4 (hyperactive), soft, NOT FOUND: distended , tender Extremities (Brief) Extremity : Side: Bilateral Extremity: leg Extremity Finding: NOT FOUND: edema Musculoskeletal (Brief) Musculoskeletal: NOT FOUND: tenderness Integumentary (Brief) Integumentary: FOUND: dry, pink, warm Psychiatric (Brief) Psychiatric: FOUND: alert, attentive, normal affect, oriented Laboratory Laboratory Laboratory Tests 01/17/17 17:56 01/18/17 05:39 01/19/17 09:12 Laboratory Tests 01/17/17 17:56 01/18/17 05:39 01/19/17 09:12 Microbiology Microbiology Microbiology Date/Time Source Procedure Growth Status 4/7/17 18:11 Peripheral/Iv Start Blood Culture - Preliminary NO GROWTH AFTER 24 HOURS Resulted 01/17/17 17:56 Peripheral/Iv Start Blood Culture - Preliminary NO GROWTH AFTER 24 HOURS Resulted Sepsis Diagnostic Criteria Sepsis Confirmed/Suspected Infection: Yes SIRS Criteria: Temp<=96.8 or >=100.4, Pulse >= 90 beats/min, RR > or = to 20 Severe Sepsis SpO2 <90% or ventilated, Lactate >=2.0 mg/dL Assessment & Plan Problems: (1) Severe sepsis Status: Resolved Assessment & Plan: POA SIRS = tachycardia, tachypnea, fever Organ dysfunction = lactate 2.2; possibly respiratory dysfunction (further tests pending) (2) Bacteremia due to Escherichia coli Status: Acute Assessment & Plan: 1 of 2 BC positive from admit. (3) UTI (urinary tract infection) Status: Acute Qualifiers: Urinary tract infection type: acute cystitis Hematuria presence: with hematuria Qualified Codes: N30.01 - Acute cystitis with hematuria Assessment & Plan: POA - Urine culture with E coli. Velazquez inserted in ED (4) Constipation Status: Resolved (5) BINU (acute kidney injury) Status: Resolved (6) Respiratory failure Status: Resolved Qualifiers: Chronicity: acute Respiratory failure complication: hypoxia Qualified Codes: J96.01 - Acute respiratory failure with hypoxia (7) Hyperkalemia Status: Resolved Assessment & Plan: POA (8) Hyperosmolality and hypernatremia Status: Resolved Assessment & Plan: POA (9) Diastolic CHF, chronic Status: Chronic (10) Type 2 diabetes mellitus Status: Chronic (11) Hypertension Status: Chronic (12) Hypercholesterolemia Status: Chronic (13) Chronic renal disease, stage IV Status: Chronic Assessment & Plan: Called [facility] and they stated creatinine was 2.5 on 12/23/2016 and was 2.0 on 08/30/2016. (14) Obstructive sleep apnea Status: Chronic Assessment & Plan: CPAP at home on room air (15) Morbid obesity with BMI of 50.0-59.9, adult Status: Chronic Plan/Intensity of Service E. coli bacteremia/UTI - cont. Nimeshephin, day #5. BC repeated on 01/16 and again 01/17 - no growth so far. Continues to have chills but no fever. Leukocytosis resolved. May need to discuss with ID tomorrow. CKD - renal sono on 01/17 was neg. for hydronephrosis. Renal function at baseline. Hypernatremia - mild on labs today. Lasix recently restarted. Hypoxia - still requiring supplemental oxygen. CXR on 01/17 was neg for acute process. Encouraged IS, activity. DVT Prophylaxis: SCD'S, Lovenox (discontinued today) Code Status Do Not Resuscitate Hospital Course Summary Disclaimer The hospital course summary below is not to be considered part of the above Progress Note. Hospital Course Summary 01/14/17: Admit, inpatient status under the hospitalist service. PCP: Amanda Kan APRN with [facility]. Her phone # is: . I spoke with her upon Sully's admission. She will fax us an updated med list. Severe sepsis secondary to UTI - SIRS criteria include tachycardia, tachypnea and fever of 102.6. - Organ dysfunction: Lactate of 2.2. Her acute respiratory failure could also be a sign of organ dysfunction, however, we need to evaluate underlying causes, especially given her history of diastolic CHF - Repeat lactate and follow culture results. - Velazquez was inserted in the emergency department. Goal would be to remove this as soon as possible and as soon as clinically stable. - Diet: Clear liquids. LLQ pain - With recent nausea and vomiting, concerning for pyelonephritis. - Patient also has a history of ileus and sigmoid resection, placing her at high risk for bowel obstruction and adhesions. - We'll obtain CT scan of her abdomen and pelvis without contrast. BINU and hyperkalemia - Baseline creatinine is about 2.0. - She received a liter of IV fluids in the ER. Will continue IV fluids. - Consider renal ultrasound. - Hold Lasix. - Monitor ins and outs closely Hypernatremia - Half-normal saline at 100 mL per hour. Watch for fluid overload. Acute respiratory failure - BiPAP and oxygen as needed. BiPAP at night for sleep apnea. She does not use daily O2. - History of diastolic CHF, will repeat echocardiogram today. Last echocardiogram was on 01/01/16, a technically difficult study that showed an EF of about 55%, mild mitral regurgitation, mild tricuspid regurgitation and mild pulmonary hypertension. - Trend serial troponin Type 2 diabetes - I requested hemoglobin A1c results from Amanda Kan. - Monitor blood glucose. Morbid obesity and generalized Weakness - Consult PT/OT Code status: DNR Assessment and plan discussed with Dr. Garcia. 01/15 Not feeling as well today. More weak and tired. Frontal and temporal BARRETT. Dyspepsia and decreased appetite. Breathing stable-denies increased SOA or congestion. No pain with breathing or cough. No chest pressure or discomfort. Some discomfort with Velazquez cath. WBC with increase to 13.1. 1 of 2 BC positive for Ecoli. Urine positive for Ecoli. Creatinine 2.6-unchanged. Sodium and potassium normalized. Will continue Rocephin for urinary coverage - check on C/S. Continue IVF at 100cc/hr to help with hydration and BINU. PT/OT as pt able - feeling to weak and sick to attempt today. Will recheck blood culture and procalcitonin in am due to positive BC. 01/16/17 E. coli UTI and bacteremia: Sensitive to Rocephin. Today is day #3. Repeat blood cultures were drawn this morning. Acute kidney injury: Improving on IV fluids. BUN is 44 and creatinine is 2.1. Potassium is 4.9. Will decrease rate of IV fluids. Possible pneumonia: Today will be day #3 of azithromycin. Continue Rocephin. Severe sepsis: Pro-calcitonin still markedly elevated, but is trending down. White blood cell count is back to normal range. She has gone about 36 hours since she last had a fever. Constipation and large colonic stool burden: Continue bowel motivation aids. Check for fecal impaction, and consider enema. Restart Reglan. 01/17/2017-Dr. Lau Escherichia coli bacteremia with Escherichia coli UTI with same sensitivities. On day 3 Rocephin. Severe sepsis-resolved Bladder spasms, likely related Velazquez catheter-we'll DC catheter today and monitor and make sure patient is urinating okay Mild acute kidney injury on chronic kidney disease. Baseline creatinine is approximately 2.0-2.5. DC IV fluids Acute hypoxic respiratory failure likely in part related to sepsis-improved Hyperglycemia without diagnosis of diabetes-check hemoglobin A1c Obstructive sleep apnea-continue CPAP at night Chronic diastolic heart [id number] IV fluids Mild pulmonary hypertension Constipation-resolved Elevated troponin on admission-trending down-possibly related to sepsis and acute kidney injury Hypertension-blood pressure is a little up, possibly secondary to pain. Continue current medication and monitor closely Hyperkalemia-she is not on any medications which should raise her potassium. Will recheck tomorrow. May need low potassium diet. Recheck CBC and renal panel tomorrow. Check hemoglobin A1c on the blood lab today. Continue current medications. DC IV fluids. DC Velazquez catheter. Monitor urine output. I did call and talk with the nurse at [facility] and obtained baseline creatinine. Discussed with the patient's nurse and patient and today. Greater than 35 minutes of time was spent seeing and evaluating the patient today, reviewing chart, and determining care plan. 01/19/17 E. coli bacteremia/UTI - cont. Rocephin, day #5. BC repeated on 01/16 and again 01/17 - no growth so far. Continues to have chills but no fever. Leukocytosis resolved. May need to discuss with ID tomorrow. CKD - renal sono on 01/17 was neg. for hydronephrosis. Renal function at baseline. Hypernatremia - mild on labs today. Lasix recently restarted. Hypoxia - still requiring supplemental oxygen. CXR on 01/17 was neg for acute process. Encouraged IS, activity. DANY LAU MD 01/19/17 1559: Assessment & Plan Assessment 01/19/2017-I reviewed this chart, the patient history, and the [employer]'s/PA's documented findings as above. We discussed and formulated the assessment and plan as above with the additions below.-Dr. Lau Patient states she's feeling well today. She's not been able to get off of oxygen however. She denies any cough. She had some mild chills last night but that has resolved. She denies any abdominal pain. She is eating and drinking well. She's having normal bowel movements. She is urinating without difficulties. She is strongly wanting to go home soon. She does have home health. Her is a nurse. I discussed with her the possibility of inpatient rehabilitation, but she declined. On exam she is alert and oriented and in no acute distress. She is currently on 1/2 L of oxygen. HEENT reveals sclerae to be anicteric and oropharynx is moist. Neck is supple. Chest is clear to auscultation. Cardiovascular reveals a regular rate and rhythm. Abdomen is soft, obese, nontender and nondistended with positive bowel sounds. Extremities are free of edema. We will restart Lasix 40 mg today. Recheck lab tomorrow and possibly resume 40 mg once daily. At home she was on 40 mg twice daily. Will discuss length of antibiotic treatment with infectious disease tomorrow. If she requires IV antibiotics for another week, we'll likely place a PICC line. Will discuss with case management whether home health can give her antibiotics. Overall the patient appears to be slowly improving. Discussed plans today with the patient and her . BA ABARCA APRN Jan 19, 2017 10:23 DANY LAU MD Jan 19, 2017 15:59
[2017-01-19] MEDS: ALBUTEROL INH.SOLN. 2.5mg/3ml (0.083%) Neb. AEROSOL PRN ×2 (14:46→17:25)
[2017-01-19] MEDS ORDERED: FUROSEMIDE 40 MG TABLET PO ONE (16:00)
--- NOTE | 2017-01-19 17:55 | NUR ---
STATUS PT IS A&OX3. PT IS ON RA NOW. WAS ON 1L/NC EARLIER TODAY. PRN BREATHING TREATMENTS GIVEN NEEDED. PT HAS DENIED WANTING TO TURN IN BED TODAY. OFFERED FOAM BOOTS FOR HER FEET AND PT REFUSED. HEELS ELEVATED ON A PILLOW. PT ASSISTS WITH MOVING HERSELF UP IN BED. BEDPAN USED SEVERAL TIMES TODAY. PT CALLS FOR NEEDS. TOLERATED MEALS WITHOUT N/V. NO BARRETT TODAY. BED ALARM ON.
[2017-01-19] MEDS: MELATONIN 5 MG TABLET PO PRN (21:54)
[2017-01-20] MEDS: ONDANSETRON 4mg/2ml INJECTION IV PRN (00:04)
--- NOTE | 2017-01-20 00:04 | NUR ---
STOMACH ACHE: PT COMPLAINED OF STOMACH ACHE AND WANTED ZOFRAN (SEE EMAR). WILL CONTINUE TO MONITOR.
[2017-01-20 00:15] VITALS: BP 141/78; PULSE 74; RESP 16; TEMP 98.6; O2SAT 94
[2017-01-20 05:16] LABS: BASOPHILS # (AUTO) 0.1 T/MM3 (0-0.2); BASOPHILS % (AUTO) 0.7 % (0-2); EOSINOPHILS # (AUTO) 0.5 T/MM3 (0-0.5); EOSINOPHILS % (AUTO) 4.5 % (0-4); HCT - HEMATOCRIT 37.4 % (36-46); HGB - HEMOGLOBIN 12.2 GM/DL (12-16); IMMATURE GRANULOCYTE # (AUTO) 0.16 T/MM3 (0.00-0.03); IMMATURE GRANULOCYTE % (AUTO) 1.6 % (0.0-0.5); LYMPHOCYTES # (AUTO) 2.1 T/MM3 (1-4.8); LYMPHOCYTES % (AUTO) 20.6 % (23-45); MEAN CORPUSCULAR HGB 31.3 UUG (26-34); MEAN CORPUSCULAR HGB CONC(MCHC 32.6 GM/DL (31-37); MEAN CORPUSCULAR VOLUME 95.9 UM3 (80-100); MEAN PLATELET VOLUME 11.1 UM3 (9.4-12.4); MONOCYTES # (AUTO) 1.1 T/MM3 (0-0.8); MONOCYTES % (AUTO) 10.8 % (0-9.0); NEUTROPHILS #(AUTO)-ABSOLUTE 6.2 T/MM3 (1.8-7.7); NEUTROPHILS % (AUTO) 61.8 % (33-66)
[2017-01-20 05:35] LABS: ANION GAP 13 MEQ/L (5-15); BUN/CREATININE RATIO 22 RATIO (6-26); CALCIUM 9.2 MG/DL (8.4-10.2); CHLORIDE 109 MEQ/L (98-107); CO2 - CARBON DIOXIDE 22 MEQ/L (22-30); CREATININE 1.9 MG/DL (0.7-1.2); GLOMERULAR FILTRATION RATE 26; GLUCOSE 121 MG/DL (65-110); POTASSIUM 4.6 MEQ/L (3.6-5); SODIUM 144 MEQ/L (134-144)
--- NOTE | 2017-01-20 06:54 | NUR ---
SHIFT REPORT: PT IS A&OX3, FRIENDLY, COOPERATIVE. PT IS ON ROOM AIR DURING THE DAY, AND USES BI-PAP AT NIGHT. PT CALLED SEVERAL TIMES DURING THE NIGHT TO USE THE BED [place] OR FOR INCONTINENCE. TELEMETRY CALLED SEVERAL TIMES DURING THE NIGHT REGARDING 02 SATURATION DROP. I CHECKED PT'S 02 SATURATION USING AN EAR PROBE THIS PROVED TO BE A MORE ACCURATE HIGHER SATURATION READING; THE LOWER 02 SATURATION READING APPEARS TO BE DUE TO PT'S FINGER NAIL ARMENIAN. PT ASSISTS WITH TURNING. CALL LIGHT WITHIN REACH, BED ALARM ON.
[2017-01-20] MEDS: CEFTRIAXONE 1 G in NORMAL SALINE 100 ML IV SCH (08:22)
[2017-01-20] MEDS: BISACODYL 5 MG E.C. TABLET PO SCH (08:25)
[2017-01-20] MEDS: NORMAL SALINE 500 ML IV PRN (08:25)
[2017-01-20 08:28] VITALS: BP_SYST 141; BP_SYST 171; BP_DIAS 78; BP_DIAS 91; PULSE 75; RESP 18; TEMP 98.1; O2SAT 92
[2017-01-20] MEDS: ATENOLOL 50 MG TABLET PO SCH ×2 (08:42→21:46)
[2017-01-20] MEDS: SENNOSIDES 8.6 MG TABLET PO SCH ×2 (08:42→21:45)
[2017-01-20] MEDS: SERTRALINE 100 MG TABLET PO SCH (08:42)
[2017-01-20] MEDS: AMLODIPINE 5 MG TABLET PO SCH (08:42)
[2017-01-20] MEDS: ACETAMINOPHEN SR 650 MG TABLET PO PRN ×2 (08:43→21:49)
[2017-01-20] MEDS ORDERED: METOCLOPRAMIDE 10mg/2ml INJECTION IV PRN (13:45)
[2017-01-20] MEDS ORDERED: FUROSEMIDE 40 MG TABLET PO ONE (13:45)
--- NOTE | 2017-01-20 13:49 | NUR ---
JOSE GACRIA [email or web address] [phone] ABOUT POTENTIAL DC ON 01/21/2017 ON HOME O2.
--- NOTE | 2017-01-20 14:55 | NUR ---
CM CM IN TO VISIT PT. CM INTRODUCED SELF, PROVIDED CONTACT INFORMATION AND UPDATED WHITEBOARD. PT DOES WANT TO GO HOME WITH [facility] NOTIFIED HER I HAVE BEEN IN CONTACT WITH [facility] AND THAT IS AWARE OF POTENTIAL DC TOMORROW. PT AWARE TO CONTACT CM SHOULD NEEDS [facility].
[2017-01-20 15:52] VITALS: BP 145/78; PULSE 71; RESP 26; TEMP 98.2; O2SAT 90
--- NOTE | 2017-01-20 16:20 | PNPDOC ---
BA ABARCA PULMONOLOGIST INTENSIVIST 01/20/17 1620: Subjective Date DATE: 01/20/17 TIME: 16:17 Subjective Sully is doing well - no fever and the chills have resolved. She is looking forward to going home. She denies chest pain or SOA - currently on room air but she's been needing O2 at night. She denies abd pain or GI complaints - she's had a good appetite. Objective Vital Signs Vital signs Vital Signs Date Time Temp Pulse Resp B/P Pulse Ox O2 Delivery O2 Flow Rate FiO2 01/20/17 15:52 98.2 71 26 145/78 90 Room Air 01/19/17 22:46 1.00 Height (Feet): 5 Height (Inches): 6.00 Weight (Kilograms): 162.600 General General Appearance: Alert, Obese, Orientated x 3, Well Nourished, Well Developed, No Acute Distress Eyes (Brief) Eyes: FOUND: PERRL, NOT FOUND: scleral icterus ENMT (Brief) ENMT: FOUND: mucosa moist, NOT FOUND: pharnyx erythema Respiratory (Brief) Respiratory: FOUND: clear all [place], equal bilaterally Cardiovascular (Brief) Cardiac: FOUND: regular rate, regular rhythm Abdomen (Brief) Abdominal: FOUND: BS normo active x4, soft, NOT FOUND: distended Extremities (Brief) Extremity : Extremity Finding: NOT FOUND: edema Musculoskeletal (Brief) Musculoskeletal: NOT FOUND: tenderness Integumentary (Brief) Integumentary: FOUND: dry, pink, warm Psychiatric (Brief) Psychiatric: FOUND: alert, attentive, normal affect, oriented Laboratory Laboratory Laboratory Tests 01/19/17 09:12 01/20/17 04:24 Laboratory Tests 01/19/17 09:12 01/20/17 04:24 Microbiology Microbiology Microbiology Date/Time Source Procedure Growth Status 01/17/17 18:11 Peripheral/Iv Start Blood Culture - Preliminary NO GROWTH AFTER 48 HOURS Resulted 01/17/17 17:56 Peripheral/Iv Start Blood Culture - Preliminary NO GROWTH AFTER 48 HOURS Resulted Sepsis Diagnostic Criteria Sepsis Confirmed/Suspected Infection: Yes SIRS Criteria: Temp<=96.8 or >=100.4, Pulse >= 90 beats/min, RR > or = to 20 Severe Sepsis SpO2 <90% or ventilated, Lactate >=2.0 mg/dL Assessment & Plan Problems: (1) Severe sepsis Status: Resolved Assessment & Plan: POA SIRS = tachycardia, tachypnea, fever Organ dysfunction = lactate 2.2; possibly respiratory dysfunction (further tests pending) (2) Bacteremia due to Escherichia coli Status: Acute Assessment & Plan: 1 of 2 BC positive from admit. (3) UTI (urinary tract infection) Status: Acute Qualifiers: Urinary tract infection type: acute cystitis Hematuria presence: with hematuria Qualified Codes: N30.01 - Acute cystitis with hematuria Assessment & Plan: POA - Urine culture with E coli. Velazquez inserted in ED (4) Constipation Status: Resolved (5) BINU (acute kidney injury) Status: Resolved (6) Respiratory failure Status: Resolved Qualifiers: Chronicity: acute Respiratory failure complication: hypoxia Qualified Codes: J96.01 - Acute respiratory failure with hypoxia (7) Hyperkalemia Status: Resolved Assessment & Plan: POA (8) Hyperosmolality and hypernatremia Status: Resolved Assessment & Plan: POA (9) Diastolic CHF, chronic Status: Chronic (10) Type 2 diabetes mellitus Status: Chronic (11) Hypertension Status: Chronic (12) Hypercholesterolemia Status: Chronic (13) Chronic renal disease, stage IV Status: Chronic Assessment & Plan: Called [facility] and they stated creatinine was 2.5 on 12/23/2016 and was 2.0 on 08/30/2016. (14) Obstructive sleep apnea Status: Chronic Assessment & Plan: CPAP at home on room air (15) Morbid obesity with BMI of 50.0-59.9, adult Status: Chronic Plan/Intensity of Service E. coli bacteremia/UTI - Dr. Lau changed abx to Cipro. Leukocytosis resolved. Hypernatremia - resolved. Hypoxia - still requiring supplemental oxygen. Monitor nocturnal oximetry to see if she needs oxygen with BiPAP. Discussed with Dr. Lau. Likely home tomorrow. Code Status Do Not Resuscitate Hospital Course Summary Disclaimer The hospital course summary below is not to be considered part of the above Progress Note. Hospital Course Summary 01/14/17: Admit, inpatient status under the hospitalist service. PCP: Amanda Kan APRN with [facility]. Her phone # is: . I spoke with her upon Sully's admission. She will fax us an updated med list. Severe sepsis secondary to UTI - SIRS criteria include tachycardia, tachypnea and fever of 102.6. - Organ dysfunction: Lactate of 2.2. Her acute respiratory failure could also be a sign of organ dysfunction, however, we need to evaluate underlying causes, especially given her history of diastolic CHF - Repeat lactate and follow culture results. - Velazquez was inserted in the emergency department. Goal would be to remove this as soon as possible and as soon as clinically stable. - Diet: Clear liquids. LLQ pain - With recent nausea and vomiting, concerning for pyelonephritis. - Patient also has a history of ileus and sigmoid resection, placing her at high risk for bowel obstruction and adhesions. - We'll obtain CT scan of her abdomen and pelvis without contrast. BINU and hyperkalemia - Baseline creatinine is about 2.0. - She received a liter of IV fluids in the ER. Will continue IV fluids. - Consider renal ultrasound. - Hold Lasix. - Monitor ins and outs closely Hypernatremia - Half-normal saline at 100 mL per hour. Watch for fluid overload. Acute respiratory failure - BiPAP and oxygen as needed. BiPAP at night for sleep apnea. She does not use daily O2. - History of diastolic CHF, will repeat echocardiogram today. Last echocardiogram was on 01/01/16, a technically difficult study that showed an EF of about 55%, mild mitral regurgitation, mild tricuspid regurgitation and mild pulmonary hypertension. - Trend serial troponin Type 2 diabetes - I requested hemoglobin A1c results from Amanda Kan. - Monitor blood glucose. Morbid obesity and generalized Weakness - Consult PT/OT Code status: DNR Assessment and plan discussed with Dr. Garcia. 01/15 Not feeling as well today. More weak and tired. Frontal and temporal BARRETT. Dyspepsia and decreased appetite. Breathing stable-denies increased SOA or congestion. No pain with breathing or cough. No chest pressure or discomfort. Some discomfort with Velazquez cath. WBC with increase to 13.1. 1 of 2 BC positive for Ecoli. Urine positive for Ecoli. Creatinine 2.6-unchanged. Sodium and potassium normalized. Will continue Rocephin for urinary coverage - check on C/S. Continue IVF at 100cc/hr to help with hydration and BINU. PT/OT as pt able - feeling to weak and sick to attempt today. Will recheck blood culture and procalcitonin in am due to positive BC. 01/16/17 E. coli UTI and bacteremia: Sensitive to Rocephin. Today is day #3. Repeat blood cultures were drawn this morning. Acute kidney injury: Improving on IV fluids. BUN is 44 and creatinine is 2.1. Potassium is 4.9. Will decrease rate of IV fluids. Possible pneumonia: Today will be day #3 of azithromycin. Continue Rocephin. Severe sepsis: Pro-calcitonin still markedly elevated, but is trending down. White blood cell count is back to normal range. She has gone about 36 hours since she last had a fever. Constipation and large colonic stool burden: Continue bowel motivation aids. Check for fecal impaction, and consider enema. Restart Reglan. 01/17/2017-Dr. Lau Escherichia coli bacteremia with Escherichia coli UTI with same sensitivities. On day 3 Rocephin. Severe sepsis-resolved Bladder spasms, likely related Velazquez catheter-we'll DC catheter today and monitor and make sure patient is urinating okay Mild acute kidney injury on chronic kidney disease. Baseline creatinine is approximately 2.0-2.5. DC IV fluids Acute hypoxic respiratory failure likely in part related to sepsis-improved Hyperglycemia without diagnosis of diabetes-check hemoglobin A1c Obstructive sleep apnea-continue CPAP at night Chronic diastolic heart [id number] IV fluids Mild pulmonary hypertension Constipation-resolved Elevated troponin on admission-trending down-possibly related to sepsis and acute kidney injury Hypertension-blood pressure is a little up, possibly secondary to pain. Continue current medication and monitor closely Hyperkalemia-she is not on any medications which should raise her potassium. Will recheck tomorrow. May need low potassium diet. Recheck CBC and renal panel tomorrow. Check hemoglobin A1c on the blood lab today. Continue current medications. DC IV fluids. DC Velazquez catheter. Monitor urine output. I did call and talk [facility] the nurse at [facility] and obtained baseline creatinine. Discussed with the patient's nurse and patient and today. Greater than 35 minutes of time was spent seeing and evaluating the patient today, reviewing chart, and determining care plan. 01/19/17 E. coli bacteremia/UTI - cont. Rocephin, day #5. BC repeated on 01/16 and again 01/17 - no growth so far. Continues to have chills but no fever. Leukocytosis resolved. May need to discuss with ID tomorrow. CKD - renal sono on 01/17 was neg. for hydronephrosis. Renal function at baseline. Hypernatremia - mild on labs today. Lasix recently restarted. Hypoxia - still requiring supplemental oxygen. CXR on 01/17 was neg for acute process. Encouraged IS, activity. 01/20/17 E. coli bacteremia/UTI - Dr. Lau changed abx to Cipro. Leukocytosis resolved. Hypernatremia - resolved. Hypoxia - still requiring supplemental oxygen. Monitor nocturnal oximetry to see if she needs oxygen with BiPAP. DANY LAU MD 01/20/17 1939: Assessment & Plan Assessment 01/20/2017-I reviewed this chart, the patient history, and the PULMONOLOGIST INTENSIVIST's/PA's documented findings as above. We discussed and formulated the assessment and plan as above with the additions below.-Dr. Lau Patient states she's feeling well today. She was up in a chair. She was on room air. She denies shortness of breath. She's had no recurrence of chills or fevers. She is eating and drinking well. She is urinating without difficulties. She's having normal bowel movements. On exam she is alert and oriented and in no acute distress. Chest is clear to auscultation. Cardio vascular reveals a regular rate and rhythm. Abdomen is soft and nontender. Extremities reveal no edema. Regarding mild fluid overload will give Lasix this afternoon then resume Lasix once daily tomorrow. Antibiotics were changed to Cipro 500 twice a day. Discussed with pharmacist today regarding renal dosing. She will need Cipro for approximately one week for a total of 14 days antibiotics for UTI and bacteremia with Escherichia coli. Possible dismissal to home tomorrow. Patient will need nonemergent ambulance transport. Dismissal plans discussed with case management and they will make sure her needs can be met through her and home health. She will need PT and OT again. We'll do an overnight oximetry on the patient's home BiPAP/CPAP on room air and see if she needs oxygen. Oxygen can be added tonight if needed. BA ABARCA APRN Jan 20, 2017 16:20 DANY LAU MD Jan 20, 2017 19:39
--- NOTE | 2017-01-20 18:44 | NUR ---
STATUS PT IS A&OX3. PRN TYLENOL GIVEN THIS AM FOR A BARRETT, PT REPORTS IT HELPED. PT WAS UP TO THE CHAIR FOR LUNCH AND SUPPER WITH THE SIT TO STAND LIFT. PT HAS BEEN ON RA THROUGHOUT THE DAY. PT HAS NOT NEEDED ANY BREATHING TREATMENTS THIS SHIFT. PT CALLS FOR NEEDS. HAS USED THE BEDPAN AND BSC NEEDED. CALLS FOR NEEDS. ALARMS IN USE. PT HAS NOT WANTED TO TURN ON HER SIDE TODAY UNLESS SHE NEEDS TO RELIEVE GAS. TOLERATED MEALS WITHOUT N/V.
[2017-01-20] MEDS: CIPROFLOXACIN 500 MG TABLET PO SCH (21:45)
[2017-01-20] MEDS: MELATONIN 5 MG TABLET PO PRN (21:45)
[2017-01-20 22:40] VITALS: O2SAT 92
[2017-01-20 23:59] VITALS: BP 168/77; PULSE 65; RESP 18; TEMP 97.9; O2SAT 90
[2017-01-21 01:00] VITALS: O2SAT 90
[2017-01-21 03:00] VITALS: O2SAT 90
--- NOTE | 2017-01-21 05:23 | NUR ---
Status Pt requested PRN melatonin for sleep aid and Tylenol for achiness. Stated the tylenol stopped achiness completely. Continent of urine while awake, but incontinent during sleep. Turned [id number]. Continuous Oximetry study done by RT overnight with home Bi-PAP and no supplemental O2. Denies needs at this time.
[2017-01-21 07:33] VITALS: BP 160/76; PULSE 60; RESP 22; TEMP 97.8; O2SAT 92
[2017-01-21 07:41] VITALS: PULSE 60; RESP 22
[2017-01-21] MEDS: SENNOSIDES 8.6 MG TABLET PO SCH (08:33)
[2017-01-21] MEDS: SERTRALINE 100 MG TABLET PO SCH (08:33)
[2017-01-21] MEDS: BISACODYL 5 MG E.C. TABLET PO SCH (08:33)
[2017-01-21] MEDS: ATENOLOL 50 MG TABLET PO SCH (08:34)
[2017-01-21] MEDS: CEFTRIAXONE 1 G in NORMAL SALINE 100 ML IV SCH (08:35)
[2017-01-21] MEDS: AMLODIPINE 5 MG TABLET PO SCH (08:35)
[2017-01-21] MEDS: CIPROFLOXACIN 500 MG TABLET PO SCH (08:35)
[2017-01-21] MEDS ORDERED: FURO-153 PO (13:08)
[2017-01-21] MEDS ORDERED: CIPR-212 PO (13:08)
[2017-01-21] MEDS ORDERED: ENOX40DI SQ (13:08)
[2017-01-21] MEDS ORDERED: ASPI81TA2 PO (13:23)
--- NOTE | 2017-01-21 13:23 | DSPDOC ---
General Date Date DATE: 01/21/17 TIME: 13:11 Attending Physician Madina Lau MD Admitting Physician Madina Lau MD Consulting Physician None Admitting Diagnosis 1. Respiratory Frailure 2. Sepsis 3. UTI Discharge Diagnosis Severe sepsis Escherichia coli bacteremia Escherichia coli UTI Acute kidney injury on chronic kidney disease Acute on chronic hypoxic respiratory failure Obstructive sleep apnea for which she uses BiPAP at night Diastolic congestive heart failure chronic Type 2 diabetes mellitus Hyperkalemia Hypernatremia Constipation Hyperlipidemia Hypertension Type 2 diabetes mellitus Morbid obesity Elevated troponin likely secondary to severe sepsis and acute kidney injury Hepatic steatosis seen on CT abdomen Procedures Overnight oximetry on BiPAP on room air on the evening of 01/20/2017 showed oxygen saturations below 88% for 5% of the night. Laboratory Item Value Date Time Procalcitonin 1.15 NG/ML 01/14/17 0807 Plasma Lactate 1.4 MMOL/L 01/14/17 1228 Procalcitonin 134.38 NG/ML *H 01/15/17 0455 Procalcitonin 82.14 NG/ML *H 01/16/17 0421 Procalcitonin 37.17 NG/ML *H 01/17/17 1756 Blood Urea Nitrogen 59.0 MG/DL *H 01/14/17 0807 Creatinine 2.6 MG/DL H 01/14/17 0807 Anion Gap 17 MEQ/L H 01/14/17 0807 Troponin I 0.457 ng/ml H # 01/14/17 1228 Troponin I 0.336 ng/ml H 01/14/17 1953 Troponin I 0.161 ng/ml H 01/15/17 0455 Hemoglobin A1c 5.9 % L 01/17/17 0439 Laboratory Tests Test 01/20/17 04:24 01/20/17 06:31 01/20/17 10:06 01/20/17 13:49 White Blood Count 10.0T/MM3 (4.5-11.0) Red Blood Count 3.90M/MM3 (4.00-5.20) Hemoglobin 12.2GM/DL (12-16) Hematocrit 37.4% (36-46) Mean Corpuscular Volume 95.9UM3 (80-100) Mean Corpuscular Hemoglobin 31.3UUG (26-34) Mean Corpuscular Hemoglobin Concent 32.6GM/DL (31-37) RDW Standard Deviation 44.0FL (36.9-50.2) Platelet Count 244T/MM3 (130-400) Mean Platelet Volume 11.1UM3 (9.4-12.4) Immature Granulocyte % (Auto) 1.6% (0.0-0.5) Neutrophils (%) (Auto) 61.8% (33-66) Lymphocytes (%) (Auto) 20.6% (23-45) Monocytes (%) (Auto) 10.8% (0-9.0) Eosinophils (%) (Auto) 4.5% (0-4) Basophils (%) (Auto) 0.7% (0-2) Absolute Immature Granulocyte (auto 0.16T/MM3 (0.00-0.03) Absolute Neutrophils (auto) 6.2T/MM3 (1.8-7.7) Absolute Lymphocytes (auto) 2.1T/MM3 (1-4.8) Absolute Monocytes (auto) 1.1T/MM3 (0-0.8) Absolute Eosinophils (auto) 0.5T/MM3 (0-0.5) Absolute Basophils (auto) 0.1T/MM3 (0-0.2) Turbidity < 20 (0-20) Sodium Level 144MEQ/L (134-144) Potassium Level 4.6MEQ/L (3.6-5) Chloride Level 109MEQ/L (98-107) Carbon Dioxide Level 22MEQ/L (22-30) Anion Gap 13MEQ/L (5-15) Blood Urea Nitrogen 41.0MG/DL (7-17) Creatinine 1.9MG/DL (0.7-1.2) Glomerular Filtration Rate Calc 26 BUN/Creatinine Ratio 22RATIO (6-26) Glucose Level 121MG/DL (65-110) Calculated Osmolality 288MOSM/KG (261-280) Calcium Level 9.2MG/DL (8.4-10.2) Icterus Index < 2 (0-7) Chemistry Specimen Hemolysis 16 (0-25) Glucometer 115mg/dL (65-110) 184mg/dL (65-110) 119mg/dL (65-110) Test 01/20/17 19:27 01/21/17 05:40 01/21/17 10:08 Glucometer 131mg/dL (65-110) 117mg/dL (65-110) 189mg/dL (65-110) Microbiology One of 2 blood cultures from 01/14/2017 BLOOD CULTURE. Final 01/20/17 Organism 1 ESCHERICHIA COLI CULTURE COMMENT: GROWTH IN THE AEROBIC BOTTLE COMMENT: NO GROWTH IN THE ANAEROBIC BOTTLE AT 5 DAYS E COLI INTERP LUIS ------ --------- AMPICILLIN R >=32 CEFAZOLIN S <=4 CEFEPIME S <=1 CEFTAZIDIME S <=1 CEFTRIAXONE S <=1 ERTAPENEM S <=0.5 GENTAMICIN S <=1 LEVOFLOXACIN S <=0.12 MEROPENEM S <=0.25 TIGECYCLINE S <=0.5 TOBRAMYCIN S <=1 TRIMETH/SULFA S <=20 PIPERACILL/TAZO S <=4 BLOOD CULTURE. Preliminary (changed) 01/16/17 Organism 1 ESCHERICHIA COLI CULTURE COMMENT: GROWTH IN THE AEROBIC BOTTLE Urine culture 01/14/2017 URINE CULTURE. Final 01/16/17 Organism 1 ESCHERICHIA COLI COLONY COUNT >100,000 CFU/ml E COLI INTERP LUIS ------ --------- AMOX/CLAV ACID S 4 AMPICILLIN R >=32 CEFAZOLIN S <=4 CEFEPIME S <=1 CEFTAZIDIME S <=1 CEFTRIAXONE S <=1 CIPROFLOXACIN S <=0.25 ERTAPENEM S <=0.5 GENTAMICIN S <=1 LEVOFLOXACIN S <=0.12 NITROFURANTOIN S <=16 TOBRAMYCIN S <=1 TRIMETH/SULFA S <=20 PIPERACILL/TAZO S <=4 URINE CULTURE. Preliminary (changed) 01/16/17 Organism 1 ESCHERICHIA COLI COLONY COUNT >100,000 CFU/ml Repeat blood cultures 01/16/2017 and 01/17/2017 were negative Radiology Chest x-ray 01/14/2017 shows hypoinflation with increased interstitial markings on the left which could be due to atelectasis, mild edema or atypical/viral pneumonia CT abdomen and pelvis without contrast showed no acute disease process in the abdomen or pelvis. Increased colonic stool burden. Hepatic steatosis. Chest x-ray 01/17/2017 showed lungs are stable in appearance without new focal airspace consolidation. No pleural effusion or pneumothorax. Heart size, pulmonary vascularity and mediastinal contours are unchanged. Renal sonogram shows no gross hydronephrosis. Exam is limited due to poor acoustic windows and patient body habitus. Both kidneys are present with no gross hydronephrosis. echo This is a two-dimensional echo with spectral Doppler, color-flow and M-mode. It was obtained in a patient with congestive heart failure and hypoxia. It was a technically very difficult study due to patient's body habitus. Left atrium appears to be normal. Left ventricle end-diastolic dimension is normal. Left ventricular wall thickness is increased. LV systolic function is normal with ejection fraction of 62%. Right atrium is normal. Right ventricle is normal. Aortic root dimension is normal. Mitral annulus is calcified. Mitral valve leaflets are normal. Aortic valve shows fibrocalcific changes with no stenosis or insufficiency. Tricuspid valve shows mild tricuspid regurgitation with mild pulmonary hypertension with estimated pulmonary artery systolic pressure of 39. Pulmonary valve shows no pulmonary insufficiency. There is no pericardial effusion. IMPRESSION 1. Normal LV systolic function with ejection fraction of 62%. 2. Concentric left ventricular hypertrophy. 3. Mitral annulus calcification. 4. Aortic sclerosis. 5. Mild tricuspid regurgitation with mild pulmonary hypertension with estimated pulmonary artery systolic pressure of 39. History of Present Illness Sully Arshad is a 66 y/o woman who developed severe dyspnea at rest in the morning of 01/14/17. Her , Esteban, noticed that her forehead and fingers were blue, and called 911. She remained cognitively and mentally intact. EMS placed her on BiPAP and her sats and skin color quickly improved. On arrival to the emergency department, she was febrile with a temperature of 102.6, tachycardic at 105, and tachypneic with a respiratory rate of 28. Labs revealed a normal white count , however, lactate was elevated at 2.2. CMP: Na slightly elevated at 146, hyperkalemia (4.2), and BINU with BUN of 59 and Cr of 2.6 (baseline around 2). Velazquez catheter was inserted and UA showed UTI. CXR showed left-sided atelectasis but interpretation was limited d/t hypoinflation. BNP was not convincing for CHF. Troponin was 0.06. She received NS 1L bolus and a gram of Rocephin. Dr. Garcia was contacted and the patient was admitted to inpatient status for further evaluation and treatment of severe sepsis, UTI, and acute respiratory failure. LOS is expected to exceed 2 overnights. The patient was seen upon her arrival on the medical floor. Additional history of present illness and review of systems were obtained. She was alert and oriented 3, and her dyspnea has resolved. She was on 4 L of oxygen. She typically does not use oxygen during the day at home, but does use either CPAP or BiPAP at night for her sleep apnea. She has had an indwelling Velazquez catheter for about a year because of urinary incontinence. However, the Velazquez was removed about a week ago, as the patient was planning on working more with therapy to become stronger and transfer to the commode. However, she started to have urinary frequency and urgency without dysuria or hematuria. She also has been noting left lower quadrant abdominal pain that has been going on for " quite a while", possibly 2-3 weeks. She didn't know she was running a fever until the ambulance picked her up. She has been chilling. She also reports 2 episodes of emesis this morning, once in the emergency department and the other one in the ambulance. Her nausea has since resolved. She denies any cough or URI symptoms. No dysphagia. She denies any chest pain or palpitations. She has a history of cellulitis, but her skin has been without any recent infections, and her insists they've been keeping her skin clean and dry. Previously she had quite a bit of arm and leg swelling, and her dose of Lasix was increased to twice a day back in October. Since then the swelling has improved, but her skin has become very dry, and her is worried that she is on too much Lasix. Hospital Course 01/21/2017-Dr. Lau Patient is feeling well today. She is eating and drinking well. She is on room air during the day. Overnight oximetry last night did show oxygen dropping below 88% for about 5% of the time while she was on BiPAP on room air. I would recommend at home that she use her BiPAP with sleep and use 2 L of oxygen through her BiPAP. On exam today she is alert and oriented and in no acute distress. Chest is clear to auscultation. Cardiovascular reveals a regular rate and rhythm. Abdomen is soft, obese and nontender with positive bowel sounds. Extremities reveal no edema. Hospital course The patient was admitted with severe sepsis and found to have UTI with Escherichia coli and one of 2 blood cultures on admission were positive for Escherichia coli. The Escherichia coli was sensitive to all antibiotics tested except for ampicillin. The patient was started on Rocephin. She is received 7 days of Rocephin. She was started on Cipro orally last night and has tolerated that well. She will be discharged on 7 more days of ciprofloxacin for a total of 2 weeks of antibiotic treatment for Escherichia coli bacteremia. Repeat blood cultures were negative on 01/16/2017. On 01/17/2017 the patient did have significant chilling without fever. Repeat blood cultures were drawn and then as well as a repeat lactate. Lactate was normal and repeat blood cultures are negative to date. The patient had had an indwelling Velazquez for a long time that was removed a week or 2 prior to admission for UTI with sepsis. The patient had acute kidney injury on admission and Velazquez catheter was replaced. Patient had significant bladder spasms associated with Velazquez catheter and it was removed a couple of days after admission. The patient was urinating well without a catheter. Renal sonogram was obtained after catheter was removed and showed no hydronephrosis. The patient's acute kidney injury improved with IV fluids and holding Lasix. Her Lasix is being restarted at 40 mg once a day instead of 40 mg by mouth twice a day. This will need to be monitored by her primary care physician and it 's possible that she will need to go back up to the twice daily dosing. Creatinine on admission was 2.6 with a BUN of 59. Prior to discharge BUN was 49 and creatinine 1.9. When the patient was admitted she did have mildly elevated troponins likely associated with severe sepsis and acute kidney injury. She had no associated chest discomfort. She is being discharged on 81 mg aspirin once daily. I did discuss these findings with her and her . Her primary care provider can decide whether or not she requires any further workup. Regarding generalized weakness, the patient has had long-standing problems with severe weakness and inability to mobilize well. Just prior to admission patient was able to get up out of bed and pivoted into a chair with the help of her . With her prolonged illness here she is no longer able to safely stand on the side of the bed even with physical therapy and occupational therapy working with the patient. She was offered senior living versus inpatient rehabilitation, however she and her declined. She felt she would do better at home and her was in agreement. She does have home health and they would like PT and OT to come to her home. Her is a nurse and she feels that he can safely take care of her needs and he is in agreement. Because the patient is mostly bedbound, I did recommend Lovenox 40 mg subcutaneous once daily for DVT prophylaxis. Her is not sure if she actually needs this because he states he will be doing physical therapy with her legs. I told him I would go ahead and write a prescription for 2 weeks supply. Here in the hospital , she has been on SCDs or Lovenox. Patient will go home with home health and PT and OT. I would recommend a CBC and basic metabolic profile on 01/23/2017. She may need repeat lab in a week but I will leave that up to her primary care provider. I did call and leave a message with the nurse for [facility] [employer]/Amanda Kan. Amanda was not in the office today but I did ask for the nurse to have her call me should she have any questions or concerns. The patient appears stable for dismissal from the hospital. She will go home by nonemergent ambulance transfer. She will have [facility]. She will need follow-up with Amanda Kan within the next one week. Problems: (1) Severe sepsis Status: Resolved Assessment & Plan: POA SIRS = tachycardia, tachypnea, fever Organ dysfunction = lactate 2.2; possibly respiratory dysfunction (further tests pending) (2) Bacteremia due to Escherichia coli Status: Acute Assessment & Plan: 1 of 2 BC positive from admit. (3) UTI (urinary tract infection) Status: Acute Assessment & Plan: POA - Urine culture with E coli. Velazquez inserted in ED (4) Constipation Status: Resolved (5) BINU (acute kidney injury) Status: Resolved (6) Respiratory failure Status: Resolved (7) Hyperkalemia Status: Resolved Assessment & Plan: POA (8) Hyperosmolality and hypernatremia Status: Resolved Assessment & Plan: POA (9) Diastolic CHF, chronic Status: Chronic (10) Type 2 diabetes mellitus Status: Chronic (11) Hypertension Status: Chronic (12) Hypercholesterolemia Status: Chronic (13) Chronic renal disease, stage IV Status: Chronic Assessment & Plan: Called [facility] [employer] and they stated creatinine was 2.5 on 12/23/2016 and was 2.0 on 08/30/2016. (14) Obstructive sleep apnea Status: Chronic Assessment & Plan: CPAP at home on room air (15) Morbid obesity with BMI of 50.0-59.9, adult Status: Chronic Code Status Do Not Resuscitate Home Meds Active Scripts Aspirin (Aspirin) 81 Mg Tab.chew, 1 TAB PO DAILY, #30 TAB 3 Refills Prov:MADINA LAU MD 01/21/17 Enoxaparin Sodium (Lovenox) 40 Mg/0.4 Ml Inj, 0.4 ML SQ DAILY for 14 Days, #10 SYRINGE Prov:MADINA LAU MD 01/21/17 Ciprofloxacin HCl (Cipro) 500 Mg Tablet, 500 MG PO Q12HR for 7 Days, #14 TAB Prov:MADINA LAU MD 01/21/17 Furosemide (Lasix) 40 Mg Tablet, 1 TAB PO daily in the morning, #30 TAB Prov:MADINA LAU MD 01/21/17 Reported Medications Metoclopramide HCl (Reglan) 10 Mg Tablet, 10 MG PO ACB, TAB 01/14/17 Ondansetron HCl (Zofran) 8 Mg Tablet, Q6HPRN 01/14/17 Bisacodyl (Dulcolax) 5 Mg Tablet.dr, 2 TAB PO DAILY, TAB 01/14/17 Tramadol HCl (Tramadol HCl) 50 Mg Tablet, 50 MG PO BID Y for PRN ORDERS, TAB 01/14/17 Sertraline (Zoloft) 100 Mg Tablet, 100 MG PO DAILY, TAB 01/14/17 Sennosides (Senna Lax) 8.6 Mg Tablet, 17.2 MG PO BID, TAB 01/14/17 Atenolol (Atenolol) 50 Mg Tablet, 1 TAB PO BID, TAB 01/01/16 Amlodipine Besylate (Amlodipine Besylate) 5 Mg Tablet, 5 MG PO DAILY, TAB 01/01/16 Face to Face Encounter I met with patient on the day of dismissal and discussed follow up appointments , medications, and safety plan. Discharge Disposition Dismiss to home with and home health in stable condition MADINA LAU MD Jan 21, 2017 13:14 Assessment & Plan: CPAP at home on room air (15) Morbid obesity with BMI of 50.0-59.9, adult Status: Chronic Code Status Do Not Resuscitate Home Meds Active Scripts Aspirin (Aspirin) 81 Mg Tab.chew, 1 TAB PO DAILY, #30 TAB 3 Refills Prov:MADINA LAU MD 01/21/17 Enoxaparin Sodium (Lovenox) 40 Mg/0.4 Ml Inj, 0.4 ML SQ DAILY for 14 Days, #10 SYRINGE Prov:MADINA LAU MD 01/21/17 Ciprofloxacin HCl (Cipro) 500 Mg Tablet, 500 MG PO Q12HR for 7 Days, #14 TAB Prov:MADINA LAU MD 01/21/17 Furosemide (Lasix) 40 Mg Tablet, 1 TAB PO daily in the morning, #30 TAB Prov:MADINA LAU MD 01/21/17 Reported Medications Metoclopramide HCl (Reglan) 10 Mg Tablet, 10 MG PO ACB, TAB 01/14/17 Ondansetron HCl (Zofran) 8 Mg Tablet, Q6HPRN 01/14/17 Bisacodyl (Dulcolax) 5 Mg Tablet.dr, 2 TAB PO DAILY, TAB 01/14/17 Tramadol HCl (Tramadol HCl) 50 Mg Tablet, 50 MG PO BID Y for PRN ORDERS, TAB 01/14/17 Sertraline (Zoloft) 100 Mg Tablet, 100 MG PO DAILY, TAB 01/14/17 Sennosides (Senna Lax) 8.6 Mg Tablet, 17.2 MG PO BID, TAB 01/14/17 Atenolol (Atenolol) 50 Mg Tablet, 1 TAB PO BID, TAB 01/01/16 Amlodipine Besylate (Amlodipine Besylate) 5 Mg Tablet, 5 MG PO DAILY, TAB 01/01/16 Face to Face Encounter I met with patient on the day of dismissal and discussed follow up appointments , medications, and safety plan. MADINA LAU MD Jan 21, 2017 13:14
--- NOTE | 2017-01-21 13:31 | NUR ---
JOSE CM IN TO VISIT WITH PT, AT BEDSIDE. PT HAS O2 AT HOME. ORDERS FAXED TO [facility] AT [facility].
--- NOTE | 2017-01-21 14:22 | NUR ---
DISMISSAL PT DISMISSED TO HOME VIA NON-EMERGENT EMS TRANSFER. PT BELONGINGS PACKED, GO HOME PACKET GIVEN, [facility] CALLED TO [facility] PULLED, PT DRESSED.
== END 2017-01-21 14:41 | disposition home health service (06) | DRG 871 ==
LOC: ED 07:35 → EDHOLD 09:42 → MED 10:14
PROVIDERS: ADMIT Hospitalist; ATTEND Internal Medicine
PROC: 5A09357 Assistance with Respiratory Ventilation, Less than 24 Consecutive Hours, Continuous Positive Airway Pressure (ICD-10-PCS; principal; 2017-01-14)
DX: A41.51 Sepsis due to Escherichia coli [E. coli] (principal); J96.01 Acute respiratory failure with hypoxia; N39.0 Urinary tract infection, site not specified; N17.9 Acute kidney failure, unspecified; E87.0 Hyperosmolality and hypernatremia; I13.0 Hypertensive heart and chronic kidney disease with heart failure and stage 1 through stage 4 chronic kidney disease, or unspecified chronic kidney disease; I50.32 Chronic diastolic (congestive) heart failure; N18.4 Chronic kidney disease, stage 4 (severe); Z68.43 Body mass index [BMI] 50.0-59.9, adult; E66.2 Morbid (severe) obesity with alveolar hypoventilation; R65.20 Severe sepsis without septic shock; E87.5 Hyperkalemia; E11.22 Type 2 diabetes mellitus with diabetic chronic kidney disease; Z66 Do not resuscitate; E66.01 Morbid (severe) obesity due to excess calories; G47.33 Obstructive sleep apnea (adult) (pediatric); E78.5 Hyperlipidemia, unspecified; M19.91 Primary osteoarthritis, unspecified site; G89.29 Other chronic pain; M54.9 Dorsalgia, unspecified; B96.20 Unspecified Escherichia coli [E. coli] as the cause of diseases classified elsewhere; K76.0 Fatty (change of) liver, not elsewhere classified
CPT/HCPCS: 36415; 36600; 51702; 80048; 80053; 80069; 81001; 82803; 82948; 83036; 83605; 83735; 83880; 84100; 84145; 84484; 85007; 85025; 85027; 87040; 87086; 87088; 87150; 87186; 87205; 93005; 93306; 94640; 94762; 96361; 96374

== ENCOUNTER → 2017-01-23 | Outpatient (CLI) | payer MEDICARE, OTHER ==
[~2017-01-23] MED LIST changes: +ASPI81TA2 PO; +BISA-72 PO; +CIPR-212 PO; +ENOX40DI SQ; +FURO-153 PO; +METO-230 PO; +ONDA8TAB5; +SENN8.6T12 PO; +SERT100T PO; +TRAM50TA4 PO
[2017-01-23 14:15] LABS: HCT - HEMATOCRIT 39.7 % (36-46); HGB - HEMOGLOBIN 12.5 GM/DL (12-16); MEAN CORPUSCULAR HGB 30.5 UUG (26-34); MEAN CORPUSCULAR HGB CONC(MCHC 31.5 GM/DL (31-37); MEAN CORPUSCULAR VOLUME 96.8 UM3 (80-100); MEAN PLATELET VOLUME 10.8 UM3 (9.4-12.4); WBC - WHITE BLOOD COUNT 10.2 T/MM3 (4.5-11.0)
[2017-01-23 14:26] LABS: BAND NEUTROPHILS # 0.1 T/MM3; BASOPHILS # (MANUAL) 0.1 T/MM3 (0-0.2); EOSINOPHILS # (MANUAL) 0.4 T/MM3 (0-0.5); LYMPHOCYTES # (MANUAL) 3.1 T/MM3 (1-4.8); MONOCYTES # (MANUAL) 0.3 T/MM3 (0-0.8); REACTIVE LYMPHOCYTES # 0.2 T/MM3 (0-0); TOTAL CELLS COUNTED 100 %
[2017-01-23 14:29] LABS: ALBUMIN 3.8 G/DL (3.5-5.0); ALKALINE PHOSPHATASE 159 U/L (38-126); ALT (SGPT) 35 U/L (9-52); ANION GAP 14 MEQ/L (5-15); AST (SGOT) 34 U/L (14-36); BUN/CREATININE RATIO 19 RATIO (6-26); CALCIUM 8.9 MG/DL (8.4-10.2); CHLORIDE 110 MEQ/L (98-107); CO2 - CARBON DIOXIDE 22 MEQ/L (22-30); CREATININE 2.6 MG/DL (0.7-1.2); GLOMERULAR FILTRATION RATE 18; GLUCOSE 181 MG/DL (65-110); POTASSIUM 4.8 MEQ/L (3.6-5); SODIUM 146 MEQ/L (134-144); TOTAL PROTEIN 7.8 G/DL (6.3-8.2)
== END ==
LOC: LABN 14:08
PROVIDERS: ATTEND Family Medicine
DX: I10 Essential (primary) hypertension (principal); M62.81 Muscle weakness (generalized)
CPT/HCPCS: 80053; 85025

== ENCOUNTER → 2017-02-04 | Outpatient (CLI) | payer MEDICARE, OTHER ==
[~2017-02-04] MED LIST changes: -ACET-732 PO; -ALLO100T51 PO; -CALC0.5C2 PO; -FURO-33 PO; -HYDR-4074 PO; -METO10TA PO; -OMEP-122 PO; -ROSU10TA PO; -[UNRECOGNIZED DRUG - CODE] TP
[2017-02-04 10:44] LABS: ANION GAP 15 MEQ/L (5-15); BUN/CREATININE RATIO 21 RATIO (6-26); CALCIUM 8.9 MG/DL (8.4-10.2); CHLORIDE 110 MEQ/L (98-107); CO2 - CARBON DIOXIDE 22 MEQ/L (22-30); CREATININE 2.4 MG/DL (0.7-1.2); GLOMERULAR FILTRATION RATE 20; GLUCOSE 165 MG/DL (65-110); POTASSIUM 5.6 MEQ/L (3.6-5); SODIUM 147 MEQ/L (134-144)
== END ==
LOC: LABN 10:28
PROVIDERS: ATTEND Family Medicine
DX: M62.81 Muscle weakness (generalized) (principal); I10 Essential (primary) hypertension; N18.4 Chronic kidney disease, stage 4 (severe)
CPT/HCPCS: 80048

== ENCOUNTER → 2017-02-12 | Outpatient (CLI) | payer MEDICARE, OTHER ==
[2017-02-12 13:07] LABS: BLOOD, URINE NEGATIVE (NEGATIVE); COLOR,URINE YELLOW (YELLOW); LEUKOCYTE ESTERASE ,URINE NEGATIVE (NEGATIVE); NITRITE,URINE NEGATIVE (NEGATIVE); UROBILINOGEN,URINE 0.2 EU/DL (NORMAL)
[2017-02-12 13:09] LABS: BASOPHILS % (AUTO) 0.4 % (0-2); EOSINOPHILS # (AUTO) 0.5 T/MM3 (0-0.5); HCT - HEMATOCRIT 43.1 % (36-46); HGB - HEMOGLOBIN 13.8 GM/DL (12-16); IMMATURE GRANULOCYTE # (AUTO) 0.02 T/MM3 (0.00-0.03); IMMATURE GRANULOCYTE % (AUTO) 0.2 % (0.0-0.5); LYMPHOCYTES # (AUTO) 3.5 T/MM3 (1-4.8); LYMPHOCYTES % (AUTO) 38.7 % (23-45); MEAN CORPUSCULAR HGB 30.9 UUG (26-34); MEAN CORPUSCULAR VOLUME 96.4 UM3 (80-100); MEAN PLATELET VOLUME 11.6 UM3 (9.4-12.4); MONOCYTES # (AUTO) 0.8 T/MM3 (0-0.8); MONOCYTES % (AUTO) 8.6 % (0-9.0); NEUTROPHILS #(AUTO)-ABSOLUTE 4.3 T/MM3 (1.8-7.7); NEUTROPHILS % (AUTO) 47.1 % (33-66); RED BLOOD COUNT 4.47 M/MM3 (4.00-5.20); WBC - WHITE BLOOD COUNT 9.1 T/MM3 (4.5-11.0)
[2017-02-12 13:19] LABS: ANION GAP 16 MEQ/L (5-15); BACTERIA,URINE TRACE (NEGATIVE); BUN/CREATININE RATIO 16 RATIO (6-26); CALCIUM 9.6 MG/DL (8.4-10.2); CHLORIDE 108 MEQ/L (98-107); CO2 - CARBON DIOXIDE 23 MEQ/L (22-30); CREATININE 2.1 MG/DL (0.7-1.2); GLOMERULAR FILTRATION RATE 24; GLUCOSE 241 MG/DL (65-110); POTASSIUM 4.8 MEQ/L (3.6-5); RBC,URINE 0-1 /HPF (0-3); SODIUM 147 MEQ/L (134-144); WBC,URINE 0-1 /HPF (0-5)
== END ==
LOC: LABN 12:48
PROVIDERS: ATTEND Family Medicine
DX: N39.0 Urinary tract infection, site not specified (principal); I10 Essential (primary) hypertension
CPT/HCPCS: 80048; 81001; 85025; 87086; 87147; 87186

== ENCOUNTER → 2017-03-07 | Outpatient (CLI) | payer MEDICARE, OTHER ==
[2017-03-07 15:02] LABS: BASOPHILS % (AUTO) 0.2 % (0-2); EOSINOPHILS # (AUTO) 0.2 T/MM3 (0-0.5); EOSINOPHILS % (AUTO) 2.4 % (0-4); HCT - HEMATOCRIT 39.1 % (36-46); HGB - HEMOGLOBIN 12.5 GM/DL (12-16); IMMATURE GRANULOCYTE # (AUTO) 0.03 T/MM3 (0.00-0.03); IMMATURE GRANULOCYTE % (AUTO) 0.3 % (0.0-0.5); LYMPHOCYTES # (AUTO) 2.3 T/MM3 (1-4.8); LYMPHOCYTES % (AUTO) 26.6 % (23-45); MEAN CORPUSCULAR HGB 30.9 UUG (26-34); MEAN CORPUSCULAR VOLUME 96.8 UM3 (80-100); MEAN PLATELET VOLUME 11.2 UM3 (9.4-12.4); MONOCYTES # (AUTO) 0.8 T/MM3 (0-0.8); NEUTROPHILS #(AUTO)-ABSOLUTE 5.3 T/MM3 (1.8-7.7); NEUTROPHILS % (AUTO) 61.5 % (33-66); RED BLOOD COUNT 4.04 M/MM3 (4.00-5.20); WBC - WHITE BLOOD COUNT 8.7 T/MM3 (4.5-11.0)
[2017-03-07 15:03] LABS: BLOOD, URINE NEGATIVE (NEGATIVE); COLOR,URINE YELLOW (YELLOW); LEUKOCYTE ESTERASE ,URINE NEGATIVE (NEGATIVE); NITRITE,URINE NEGATIVE (NEGATIVE); UROBILINOGEN,URINE 0.2 EU/DL (NORMAL)
[2017-03-07 15:14] LABS: ANION GAP 15 MEQ/L (5-15); BUN/CREATININE RATIO 23 RATIO (6-26); CALCIUM 8.7 MG/DL (8.4-10.2); CHLORIDE 110 MEQ/L (98-107); CO2 - CARBON DIOXIDE 22 MEQ/L (22-30); CREATININE 2.3 MG/DL (0.7-1.2); GLOMERULAR FILTRATION RATE 21; GLUCOSE 150 MG/DL (65-110); SODIUM 147 MEQ/L (134-144)
== END ==
LOC: LABN 14:51
PROVIDERS: ATTEND Family Medicine
DX: I50.9 Heart failure, unspecified (principal); E11.9 Type 2 diabetes mellitus without complications; N39.0 Urinary tract infection, site not specified
CPT/HCPCS: 80048; 81003; 82043; 85025; 87077; 87086; 87186

== ENCOUNTER 2018-01-14 15:29 | Inpatient (IN) ==
--- NOTE | 2018-01-14 15:36 | Emergency Department Report ---
General Adult HPI - General Stated complaint: diff breathing Time Seen by Provider: 01/14/18 15:34 Source: patient, family, EMS Mode of arrival: EMS Limitations: no limitations - History of Present Illness HPI narrative: 67-year-old female presents to the emergency department with a chief complaint of shortness of breath. She denies any current pain or discomfort. She was at home when her symptoms began and gradually increased throughout the day. She notes that her symptoms increased to the point to where she felt like she needed to come to the hospital at approximately 2 PM today. She has a history of congestive heart failure and chronic kidney disease. She denies history of COPD. She has a history of similar symptoms in the past. She is a former hospice patient. No other complaints or associated symptoms at this time. She does note improvement with BiPAP. She was at home when her symptoms began. Symptoms have been persistent in nature since onset. - Related Data Home Medications Medication Instructions Recorded Confirmed Acetaminophen [Acetaminophen ER] 1,300 mg PO BID 01/14/18 01/14/18 Acetaminophen/Diphenhydramine 2 tab PO HS 01/14/18 01/14/18 [Acetaminophen Pm Caplet] Amlodipine [Norvasc] 10 mg PO DAILY 01/14/18 01/14/18 Aspirin [Aspirin EC] 162 mg PO BID 01/14/18 01/14/18 Atenolol [Tenormin] 50 mg PO HS 01/14/18 01/14/18 Atenolol [Tenormin] 100 mg PO QAM 01/14/18 01/14/18 Furosemide [Lasix 40 mg Tab] 40 mg PO DAILY 01/14/18 01/14/18 HydroCHLOROthiazide [HydroDIURIL] 50 mg PO DAILY 01/14/18 01/14/18 Hydrocodone/APAP 5/325 [Pattison 1 tab PO Q6H PRN 01/14/18 01/14/18 5/325] Linaclotide [Linzess] 145 mcg PO DAILY 01/14/18 01/14/18 Peg 3350 238 G Bottle [Miralax] 17 gm PO DAILY 01/14/18 01/14/18 Tramadol [Ultram] 50 mg PO BID PRN 01/14/18 01/14/18 Allergies Allergy/AdvReac Type Severity Reaction Status Date / Time doxazosin Allergy Mild Verified 01/14/18 15:48 lisinopril AdvReac Intermediate VOMITTING Verified 01/14/18 15:48 gabapentin AdvReac Unknown Verified 01/14/18 15:48 Review of Systems Constitutional: Denies: fever, chills Eyes: Denies: eye pain, vision change ENT: Denies: ear pain, throat pain Cardiovascular: Denies: chest pain, palpitations Respiratory: Reports: dyspnea. Denies: cough Gastrointestinal: Denies: abdominal pain, nausea, vomiting, diarrhea Genitourinary: Denies: urgency, dysuria Musculoskeletal: Denies: back pain, arthralgia Integumentary: Denies: erythema, rash Neurological: Denies: headache, numbness Psychiatric: Denies: anxiety, depression Endocrine: Denies: polydipsia, polyuria Hematological/Lymphatic: Denies: easy bruising, lymphadenopathy Allergic/Immunologic: Denies: facial swelling, urticaria PFSH Patient Stated Medical History Congestive Heart Failure Yes Hypertension Yes Sleep Apnea Yes Diabetes Mellitus Type 2 Yes: denies taking any current meds, says AIC has been ok Hx Urinary Tract Infection Yes Other Yes: CKD stage 3 Other Musculoskeletal Yes: chronic knee Sepsis Yes Blood Transfusions Yes: when she had hysterectomy (1) Type 2 diabetes mellitus (2) Chronic renal disease, stage IV (3) Obesity hypoventilation syndrome (4) History of ileus (5) Obstructive sleep apnea (6) Hypercholesterolemia (7) Hypertension (8) Dyslipidemia (9) Diastolic CHF, chronic (10) Chronic back pain (11) OA (osteoarthritis) (12) Morbid obesity with BMI of 50.0-59.9, adult Surgical History: exploratory laparotomy, lysis of adhesions and decompression colonoscopy. 11-13-2010 Anand. Sigmoid resection (many years prior to 2010) . Colonoscopy and decompression 11/26/2010 [facility]. Hysterectomy & bilateral salpingo-oophorectomy. Right bunionectomy. Right knee arthroscopy Family History: Brother - brain cancer Brother - heart disease, diabetes Sister - HTN both parents of old age - Social History Smoking status: Never smoker Substance use type: does not use Alcohol intake frequency: does not drink Physical Exam - Limitations Limitations: no limitations - General General appearance: alert, in distress (Mild respiratory distress) - Normal Exams: Head:: Normocephalic without trauma Eyes:: Pupils are PERRLA w/ EOMI, No scleral icterus, irritation, or foreign bodies noted ENMT:: No facial trauma, nasal exudates, pharyngeal erythema, or exudates are noted Dental: No fractured, loose, or missing teeth noted Neck:: Full range of motion, without adenopathy, JVD, bruits or thyromegaly Chest/Respirations:: Clear all [place] (diminished bilaterally. ), with good airflow, and symmetry bilaterally Cardiovascular:: Regular rate and rhythm, without murmur or gallop, Pulses 2+ all extremities, capillary refill, <2 seconds all extremities Abdomen:: Bowel sounds positive, soft, non-tender, non-distended, no hepatosplenomegaly, masses or bruits noted Lymphatic:: No lymphadenopathy, or lymphedema noted Musculoskeletal:: No tenderness, or deformity noted, good range of motion, all extremities Integumentary:: No rashes, hives, or bruising noted, hair and nails, without abnormality Neurological:: Patient is alert, and oriented, cranial nerves, motor/sensory/ cerebellar, exams w/o gross deficits, to observation Psychiatric:: Patient exhibits, appropriate attention, emotion and affect Course Vital Signs Pulse Rate 72 01/14/18 15:17 Respiratory Rate 24 01/14/18 15:17 Blood Pressure 119/78 01/14/18 15:17 Pulse Oximetry 94 01/14/18 15:17 Temperature 98.4 F 01/14/18 16:34 Pulse Rate 73 01/14/18 16:31 Respiratory Rate 24 01/14/18 16:31 Blood Pressure 164/72 H 01/14/18 16:31 Pulse Oximetry 93 01/14/18 16:31 Medical Decision Making - [facility] Narrative Medical decision making narrative: Labs/imaging were discussed in detail with the patient and family and questions are answered. Patient remains on the BiPAP in the emergency department and is markedly improved. She is given Lasix 20 mg IV times one. She is given Rocephin 1 g intravenously at 1720 when chest x-ray and labs are reviewed and sepsis is considered. She is never hypotensive in the emergency department and her lactate is < 4. Patient is continued on the BiPAP. Patient is adamant that she is to be a do not intubate. She is in agreement with the current plan of management. She is admitted to the CCU in improved condition. She is discussed with Dr. Burrows and admitted to his service in improved condition. No further orders from accepting physician who is in agreement with the current plan of management. She is given Rocephin 1 g intravenously at 1720 when chest x-ray and labs are reviewed and sepsis is considered. She is never hypotensive in the emergency department and her lactate is < 4. - Differential Diagnosis COPD, CHF, Pneumonia, Viral syndrome - Lab Data Result diagrams: 01/14/18 16:08 01/14/18 16:08 Lab Results 01/14/18 01/14/18 01/14/18 Range/Units 16:08 16:08 16:08 WBC 15.6 H (4.5-11.0) T/MM3 RBC 4.11 (4.00-5.20) M/MM3 Hgb 12.2 (12-16) GM/DL Hct 39.9 (36-46) % MCV 97.1 (80-100) UM3 MCH 29.7 (26-34) UUG MCHC 30.6 L (31-37) GM/DL RDW Std Deviation 47.2 (36.9-50.2) FL Plt Count 436 H (130-400) T/MM3 MPV 10.5 (9.4-12.4) UM3 Immature Gran % (Auto) Not performed Neut % (Auto) Not performed Lymph % (Auto) Not performed [place] % (Auto) Not performed Eos % (Auto) Not performed Baso % (Auto) Not performed Neut # (Auto) Not performed Lymph # (Auto) Not performed [place] # (Auto) Not performed Eos # (Auto) Not performed Baso # (Auto) Not performed Abs Immat Gran (auto) Not performed Neutrophils % (Manual) 64.0 (33-66) % Band Neutrophils % 4.0 (0-6) % Lymphocytes % (Manual) 23.0 (23-45) % Monocytes % (Manual) 9.0 (0-9.0) % Neutrophils # (Manual) 10.0 H (1.8-7.7) T/MM3 Band Neutrophils # 0.6 T/MM3 Lymphocytes # (Manual) 3.6 (1-4.8) T/MM3 Monocytes # (Manual) 1.4 H (0-0.8) T/MM3 RBC Morph Comment Normal Turbidity < 20 (0-20) Sodium 143 (134-144) MEQ/L Potassium 5.6 H (3.6-5) MEQ/L Chloride 104 (98-107) MEQ/L Carbon Dioxide 23 (22-30) MEQ/L Anion Gap 16 H (5-15) MEQ/L BUN 68.0 H* (7-17) MG/DL Creatinine 3.4 H (0.7-1.2) mg/dL Estimated Creat Clear 45 GFR Calculation 13 BUN/Creatinine Ratio 20 (6-26) RATIO Glucose 153 H (65-110) MG/DL Calculated Osmolality 298 H (261-280) MOSM/KG Calcium 9.5 (8.4-10.2) MG/DL Total Bilirubin 0.60 (0.20-1.30) MG/DL Icterus Index < 2 (0-7) AST 38 H (14-36) U/L ALT 48 H (1-35) U/L Alkaline Phosphatase 161 H (38-126) U/L Troponin I < 0.012 (0-0.12) ng/ml NT-Pro-B Natriuret Pep 4350 H (0-175) pg/mL Total Protein 8.6 H (6.3-8.2) g/dL Albumin 4.5 (3.5-5.0) g/dL Globulin 4.1 H (2.4-3.6) G/DL Albumin/Globulin Ratio 1.1 (1.1-2.2) RATIO Plasma Lactate (0.6-2.2) MMOL/L Procalcitonin NG/ML Specimen Hemolysis < 15 (0-25) Ur Collection Type Urine, cath straight Urine Color Yellow (YELLOW) Urine Clarity Clear Urine pH 5.0 (5.0-8.0) Ur Specific [place] 1.020 (1.015-1.025) Urine Protein 2+ A (NEGATIVE) Urine Glucose (UA) Negative (NEGATIVE) Urine Ketones Negative (NEGATIVE) Urine Occult Blood Negative (NEGATIVE) Urine Nitrate Negative (NEGATIVE) Urine Bilirubin Negative (NEGATIVE) Urine Urobilinogen 0.2 (NORMAL) EU/DL Ur Leukocyte Esterase Negative (NEGATIVE) Urine RBC 0-1 (0-3) /HPF Urine WBC 0-1 (0-5) /HPF Ur Squamous Epith Cells 0-5 Urine Bacteria Trace H (NEGATIVE) Urine Mucus Present Ur Culture Indicated? Cult not indicated 01/14/18 01/14/18 Range/Units 16:48 16:48 WBC (4.5-11.0) T/MM3 RBC (4.00-5.20) M/MM3 Hgb (12-16) GM/DL Hct (36-46) % MCV (80-100) UM3 MCH (26-34) UUG MCHC (31-37) GM/DL RDW Std Deviation (36.9-50.2) FL Plt Count (130-400) T/MM3 MPV (9.4-12.4) UM3 Immature Gran % (Auto) Neut % (Auto) Lymph % (Auto) [place] % (Auto) Eos % (Auto) Baso % (Auto) Neut # (Auto) Lymph # (Auto) [place] # (Auto) Eos # (Auto) Baso # (Auto) Abs Immat Gran (auto) Neutrophils % (Manual) (33-66) % Band Neutrophils % (0-6) % Lymphocytes % (Manual) (23-45) % Monocytes % (Manual) (0-9.0) % Neutrophils # (Manual) (1.8-7.7) T/MM3 Band Neutrophils # T/MM3 Lymphocytes # (Manual) (1-4.8) T/MM3 Monocytes # (Manual) (0-0.8) T/MM3 RBC Morph Comment Turbidity (0-20) Sodium (134-144) MEQ/L Potassium (3.6-5) MEQ/L Chloride (98-107) MEQ/L Carbon Dioxide (22-30) MEQ/L Anion Gap (5-15) MEQ/L BUN (7-17) MG/DL Creatinine (0.7-1.2) mg/dL Estimated Creat Clear GFR Calculation BUN/Creatinine Ratio (6-26) RATIO Glucose (65-110) MG/DL Calculated Osmolality (261-280) MOSM/KG Calcium (8.4-10.2) MG/DL Total Bilirubin (0.20-1.30) MG/DL Icterus Index (0-7) AST (14-36) U/L ALT (1-35) U/L Alkaline Phosphatase (38-126) U/L Troponin I (0-0.12) ng/ml NT-Pro-B Natriuret Pep (0-175) pg/mL Total Protein (6.3-8.2) g/dL Albumin (3.5-5.0) g/dL Globulin (2.4-3.6) G/DL Albumin/Globulin Ratio (1.1-2.2) RATIO Plasma Lactate 0.9 (0.6-2.2) MMOL/L Procalcitonin 0.48 NG/ML Specimen Hemolysis (0-25) Ur Collection Type Urine Color (YELLOW) Urine Clarity Urine pH (5.0-8.0) Ur Specific [place] (1.015-1.025) Urine Protein (NEGATIVE) Urine Glucose (UA) (NEGATIVE) Urine Ketones (NEGATIVE) Urine Occult Blood (NEGATIVE) Urine Nitrate (NEGATIVE) Urine Bilirubin (NEGATIVE) Urine Urobilinogen (NORMAL) EU/DL Ur Leukocyte Esterase (NEGATIVE) Urine RBC (0-3) /HPF Urine WBC (0-5) /HPF Ur Squamous Epith Cells Urine Bacteria (NEGATIVE) Urine Mucus Ur Culture Indicated? - Radiology Data CXR - Impression: 1. New moderate to severe pulmonary edema. 2. Enlarging cardiac silhouette could be due to cardiomegaly or pericardial effusion. - EKG Data EKG #1 EKG results narrative: Sinus rhythm. 72 bpm. No STEMI. Critical Care Time Critical Care Time: Yes Total Critical Care Time: 47 Attestation: 47 minutes of critical care time was assessed to the patient due to the need for complex medical decision-making, repeated assessment at the bedside, and potential for decompensation. Patient remained on BiPAP in the emergency department and was admitted to the intensive care unit in improved condition. Critical care time was spent documenting the medical record, making telephone calls, updating family, and treating the patient. Disposition Clinical Impression: BINU (acute kidney injury) Congestive heart failure Qualifiers: Heart failure type: unspecified Heart failure chronicity: unspecified Qualified Code(s): I50.9 - Heart failure, unspecified Disposition: 02 To [facility] [place] Acute Care Condition: Improved Time of Disposition: 17:00 (Admit. Dr. Burrows. ) - Seen By: physician
[2018-01-14] MEDS ORDERED: ALBUTEROL/IPRATROPIUM 2.5mg-0.5mg/3ml NEB AEROSOL ONE (15:39)
[2018-01-14] MEDS: SALINE FLUSH 10ml SYRINGE IVF PRN (16:31)
--- NOTE | 2018-01-14 16:44 | XRay Report ---
Indication: sob PROCEDURE: XR chest 1V: Encounter: Initial Comparison: January 17, 2017 Findings: New perihilar airspace opacity with upper lobe consolidation bilaterally. No gross pleural effusion or pneumothorax. Cardiac silhouette is mild to moderately enlarged, new from the prior study. Mediastinal contours are slightly widened. Pulmonary vascularity is indistinct. Impression: 1. New moderate to severe pulmonary edema. 2. Enlarging cardiac silhouette could be due to cardiomegaly or pericardial effusion. .
[2018-01-14] MEDS ORDERED: CEFTRIAXONE (ER USE ONLY) 1 GM in NS 100 ML IV ONE (17:17)
[2018-01-14] MEDS ORDERED: FUROSEMIDE 20 MG/2 ML INJECTION IVP ONE (17:17)
--- NOTE | 2018-01-14 17:42 | History & Physical Report ---
History of Present Illness Date: 01/14/18 Chief complaint: Dyspnea HPI: Sully is a 67-year-old female presents to the emergency department today complaining of dyspnea. Sully routinely utilizes oxygen at nighttime only, however, has noted that she is more dyspneic requiring oxygen more often recently. She reports that her dyspnea has been progressive over the past 2-3 days. At 1400. She began to feel increased shortness of breath and called EMS for further evaluation. She is found to have room air saturations of 76%. Patient was placed on BiPAP transported to the ER for further evaluation. CBC reveled leukocytosis with WBC count of 15.6, otherwise unremarkable. Potassium was found to be elevated at 5.6, BUNs 68, creatinine 3.4. Baseline creatinine does appear to be average 2.5 as she has known chronic kidney disease. Propene be 4350, troponin normal, venous lactate and pro calcitonin unremarkable. Urinalysis showed a trace of protein and trace bacteria, otherwise unremarkable. Chest x-ray did reveal new moderate to severe pulmonary edema. She was given Lasix 20 milligrams IV for gentle diuresis and was covered with empiric Rocephin IV. She was placed on BiPAP to help with tachypnea and dyspnea. Given the severity of her respiratory distress, accompanied with leukocytosis and acute kidney injury. The hospitalist services were contacted and accepted patient for inpatient mission to the ICU for further evaluation and treatment. We did discuss advanced directives. She does wish to be a do not resuscitate Review of Systems All systems PM: 10-point ROS was reviewed, no additional remarkable complaints except - Constitutional Constitutional: Present: fatigue - Cardiovascular Cardiovascular: Present: dyspnea on exertion - Respiratory Respiratory: Present: dyspnea, dyspnea on exertion Past Medical History Medical History Updates: Type II diabetes. Chronic kidney disease-stage IV. Obesity hypoventilation syndrome. Hypercholesterolemia. Hypertension. Hyperlipidemia. Chronic diastolic heart failure. Chronic back pain. Morbid obesity- BMI 62% Surgical History: Exploratory laparotomy, lysis of adhesions and decompression colonoscopy. 11-13-2010 Anand. Sigmoid resection (many years prior to 2010) . Colonoscopy and decompression 11/26/2010 [facility]. Hysterectomy & bilateral salpingo-oophorectomy. Right bunionectomy. Right knee arthroscopy Family History: Brother - brain cancer Brother - heart disease, diabetes Sister - HTN both parents of old age Family History: As Above - Social History Smoking status: Never smoker Substance use type: does not use Alcohol intake frequency: does not drink Housing: house Household members: spouse Current residence: Apartment/Private Home Social history: Generally able to ambulate with walker independently at home. PCP - Tevin Gonsales- SHERYL with [facility] Renal - CV - Amirani Medications Home Medications Medication Instructions Recorded Confirmed Type Acetaminophen [Acetaminophen ER] 1,300 mg PO BID 01/14/18 01/14/18 History Acetaminophen/Diphenhydramine 2 tab PO HS 01/14/18 01/14/18 History [Acetaminophen Pm Caplet] Amlodipine [Norvasc] 10 mg PO DAILY 01/14/18 01/14/18 History Aspirin [Aspirin EC] 162 mg PO BID 01/14/18 01/14/18 History Atenolol [Tenormin] 50 mg PO HS 01/14/18 01/14/18 History Atenolol [Tenormin] 100 mg PO QAM 01/14/18 01/14/18 History Furosemide [Lasix 40 mg Tab] 40 mg PO DAILY 01/14/18 01/14/18 History HydroCHLOROthiazide [HydroDIURIL] 50 mg PO DAILY 01/14/18 01/14/18 History Hydrocodone/APAP 5/325 [Bryan 1 tab PO Q6H PRN 01/14/18 01/14/18 History 5/325] Linaclotide [Linzess] 145 mcg PO DAILY 01/14/18 01/14/18 History Peg 3350 238 G Bottle [Miralax] 17 gm PO DAILY 01/14/18 01/14/18 History Tramadol [Ultram] 50 mg PO BID PRN 01/14/18 01/14/18 History Allergies Allergy/AdvReac Type Severity Reaction Status Date / Time doxazosin Allergy Mild Verified 01/14/18 15:48 lisinopril AdvReac Intermediate VOMITTING Verified 01/14/18 15:48 gabapentin AdvReac Unknown Verified 01/14/18 15:48 Exam Vital Signs: Temperature 98.4 F 01/14/18 16:34 Pulse Rate 73 01/14/18 16:31 Respiratory Rate 24 01/14/18 16:31 Blood Pressure 164/72 H 01/14/18 16:31 Pulse Oximetry 93 01/14/18 16:31 Telemetry Rhythm: Sinus Rhythm Height/Weight/BMI: Height 1.68 m Weight 176.6 kg - Constitutional Present: moderate distress, well nourished, well developed, morbidly obese - Routine HEENT Exam Eye: Present: EOMI, PERRL ENT: Present: mucous membranes moist, dentition normal - Routine Respiratory Exam Present: diminished air movement - Routine Cardiovascular Exam Present: RRR, S1, S2. Absent: murmur - Routine Abdominal Exam Present: soft, normoactive bowel sounds, non distended. Absent: tenderness - Routine Extremities Exam Present: edema - Routine Skin Exam Present: intact, dry, warm - Routine Neurological Exam Present: alert, oriented X3, CN II-XII intact - Routine Psychiatric Exam Present: normal affect, cooperative Results - Labs CBC & Chem 7: 01/14/18 16:08 01/14/18 16:08 Microbiology Results: Microbiology 01/14/18 16:48 Peripheral/Iv Start Gram Stain - Final Not performed 01/14/18 16:48 Peripheral/Iv Start Gram Stain - Final Not performed Assessment and Plan (1) Acute respiratory failure Current visit: Yes Status: Acute Assessment and Plan: Impression Acute respiratory failure with hypoxia- Baseline on room air- currently requiring Bipap Acute pulmonary edema Acute kidney injury on top of chronic kidney disease Stage 4 CKD Hypertension Type II DM Hypercholesterolemia Diastolic heart failure-chronic Obstructive of sleep apnea with obesity hypoventilation syndrome Chronic back pain Morbid obesity - BMI 62 Plan Admit patient to inpatient status under care of Dr. Garcia for acute respiratory failure with hypoxia and pulmonary edema Continue on BiPAP given respiratory distress Patient is chronically on Lasix 40 milligrams daily. She was given 20 milligrams IV 1 in the emergency room. She also takes hydrochlorothiazide 50 milligrams daily. Will need to use caution with diuresing given acute renal injury. Will obtain a renal sonogram given acute kidney injury. Other etiology of hypoxia could be pulmonary emboli, however, given renal function, we are unable to give patient IV contrast at this time. Will cover with Lovenox 30 milligrams twice a day for prophylaxis. He recommendations as per pharmacy report. BMI greater than 40 prophylaxis dosing is recommended 30 BID rather than 40 mg daily. Due to known history of congestive heart failure. Will obtain echocardiogram for further cardiac evaluation. TSH, magnesium for laboratory completeness Monitor Accu-Cheks routinely and obtain a hemoglobin A1c. Will discuss further orders and plan of care with attending, Dr. Garcia At time of discharge medical care will return to primary care provider, Tevin SAUCEDO with [facility] DVT Prophylaxis: Lovenox Resuscitation Status: Do Not Resuscitate - Time spent with patient Time with patient PN: 50 minutes - Physician Narrative Narrative: Date: 01/14/18 Time: 1950 Have independently interviewed and examined pt. Chart reviewed. Case discussed with ED physician and my SENSORY SCIENTIST. Care plan developed with my supervision; agree with above. Presents to ED secondary to increasing dyspnea. Progressively more and more SOA over the past several days. Increasing cough/congestion. Not thinking she is having more edema. Appetite decreasing-more nausea. Stools stable. No sinus congestion or pain. No trauma. Feeling much more tired and weak in general. Evaluated in ED. CXR showing pulmonary edema. Creatinine with increase from baseline. BiPAP initiated and pt tolerating-helping to decrease her work of breathing. Placed in inpatient admission at [facility] [place] for supportive care. Lungs: decreased, little air movement. Tolerating BIPAP. CV: distant, regular AB: soft obese BS decreased EXT: edema upper/lower ext Plan: Inpatient admission to CCU for treatment of acute respiratory failure secondary to pulm edema. Bumex drip to help diuresis. Will need to monitor renal status. Marcus to MATT. Check ECHO and renal doppler. Bipap for respiratory support. Will need PT/OT once resp status improves. DNR as per her request. Hospital Course Summary Disclaimer: The visit summary below is not to be considered part of the above Progress Note. Hospital Course: Impression Acute respiratory failure with hypoxia- Baseline on room air- currently requiring Bipap Acute pulmonary edema Acute kidney injury on top of chronic kidney disease Hypertension Type II DM Hypercholesterolemia Diastolic heart failure-chronic Obstructive of sleep apnea with obesity hypoventilation syndrome Chronic back pain Morbid obesity-BMI 62 Plan Admit patient to inpatient status under care of Dr. Garcia for acute respiratory failure with hypoxia and pulmonary edema Continue on BiPAP given respiratory distress Patient is chronically on Lasix 40 milligrams daily. She was given 20 milligrams IV 1 in the emergency room. She also takes hydrochlorothiazide 50 milligrams daily. Will need to use caution with diuresing given acute renal injury. Will obtain a renal sonogram given acute kidney injury Other etiology of hypoxia could be pulmonary emboli, however, given renal function, we are unable to give patient IV contrast at this time. Will cover with Lovenox 30 milligrams twice a day for prophylaxis. He recommendations as per pharmacy report. BMI greater than 40 prophylaxis dosing is recommended 30 BID rather than 40 mg daily. Due to known history of congestive heart failure. Will obtain echocardiogram for further cardiac evaluation. TSH, magnesium for laboratory completeness Monitor Accu-Cheks routinely and obtain a hemoglobin A1c. Will discuss further orders and plan of care with attending, Dr. Garcia At time of discharge medical care will return to primary care provider, Tevin SAUCEDO with [facility]
[2018-01-14] MEDS ORDERED: TRAMADOL 50 MG TABLET PO PRN (17:56)
[2018-01-14] MEDS ORDERED: BISACODYL 10 MG SUPPOSITORY RECTALLY PRN (17:56)
[2018-01-14] MEDS ORDERED: FALL RISK - PHARMACY CONSULT XX ONE (19:33)
[2018-01-14] MEDS: BUMETANIDE DRIP 25 MG in CONTAINER,EMPTY 100 ML IV SCH (19:54)
[2018-01-14] MEDS: APAP/DIPHENHYDRAMINE 500 MG/25 MG TABLET PO SCH (20:17)
[2018-01-14] MEDS: ENOXAPARIN 30 MG/0.3 ML INJECTION SQ SCH (20:17)
[2018-01-14] MEDS: ASPIRIN *EC* 81 MG TABLET PO SCH (20:24)
[2018-01-14] MEDS: ONDANSETRON 4 MG/2 ML INJECTION IVP PRN (22:54)
[2018-01-15] MEDS: MORPHINE SULFATE 2mg INJ IVP PRN ×3 (02:15→16:14)
--- NOTE | 2018-01-15 08:31 | XRay Report ---
Indication: F/U pulmonary edema PROCEDURE: XR chest 1V: Encounter: Initial Comparison: January 14, 2018 Findings: Bilateral airspace opacities are not significantly changed. No significant pleural effusion. No pneumothorax. Heart size and mediastinal contours are stable. Pulmonary vascularity is obscured. Impression: No significant change in bilateral infiltrates. If the patient has been undergoing diuresis for pulmonary edema the findings may be related to pneumonia. Recommend clinical and laboratory correlation. .
--- NOTE | 2018-01-15 08:38 | Ultrasound Report ---
Indication: acute kidney injury PROCEDURE: US renal BI: Encounter: Initial Comparison: January 17, 2017 Technique: Grayscale and color Doppler sonographic imaging of both kidneys was performed. FINDINGS: Technically limited exam due to patient body habitus. Both kidneys are present with cortical thinning, but no gross hydronephrosis, obvious stone disease or renal mass. The right kidney measures 10.9 cm in length, and the left kidney measures 11.8 cm in length. IMPRESSION: No hydronephrosis seen. .
[2018-01-15] MEDS ORDERED: PNEUMOCOCCAL VAC ADMIN CHARGE INJ ONE (08:48)
[2018-01-15] MEDS ORDERED: POLYETHYL. GLYCOL 3350 BOTTLE 238 GM PO SCH (09:00)
[2018-01-15] MEDS: AMLODIPINE 10 MG TABLET PO SCH (09:48)
[2018-01-15] MEDS: ASPIRIN *EC* 81 MG TABLET PO SCH ×2 (09:49→21:05)
[2018-01-15] MEDS: CEFTRIAXONE 1 G in NS 100 ML IV SCH (09:56)
[2018-01-15] MEDS: POLYETHYL GLYCOL 3350 17gm PACKET PO SCH (09:57)
[2018-01-15] MEDS: ENOXAPARIN 30 MG/0.3 ML INJECTION SQ SCH ×2 (09:57→20:55)
[2018-01-15] MEDS: AZITHROMYCIN IV 500 MG in NS 250ml 250 ML IV SCH (10:42)
[2018-01-15] MEDS: ACETAMINOPHEN 325 MG TABLET PO PRN (10:56)
--- NOTE | 2018-01-15 11:23 | Progress Note ---
- Date 01/15/18 Subjective: F/U: Acute respiratory failure with hypoxia, Acute pulmonary edema Doing about the same-still feel SOA and congestion. Not having pain as she breaths. Nasal congestion/dryness - declines nasal saline. No palpitations. Decreased appetite, slight nausea. Not knee pain-stiff/sore. No f/c. Feels tired /weak in general. Objective Vital signs: Temperature 99.0 F 01/15/18 08:08 Pulse Rate 77 01/15/18 08:08 Respiratory Rate 26 H 01/15/18 08:08 Blood Pressure 131/64 01/15/18 08:08 Pulse Oximetry 86 L 01/15/18 08:12 Height/Weight/BMI: Height 1.7 m Weight 174.5 kg Body Mass Index 61.0 - Constitutional Present: well nourished, severe distress, morbidly obese, cooperative - Routine HEENT Exam Head: Present: normocephalic, atraumatic Eye: Present: EOMI, PERRL ENT: Present: mucous membranes moist - Routine Respiratory Exam Present: decreased breath sounds, prolonged expiratory phase, diminished air movement. Absent: rales, rhonchi, stridor, wheezes - Routine Cardiovascular Exam Present: RRR, no murmur - Routine Abdominal Exam Present: soft, non distended, non tender. Absent: normoactive bowel sounds ( Decreased) - Routine Extremities Exam Present: edema (+3 Bilateral upper/lower). Absent: cyanosis, clubbing - Routine Musculoskeletal Exam Musculoskeletal: Present: no clubbing or cyanosis - Routine Skin Exam Present: dry, warm - Routine Neurological Exam Present: alert, oriented X3, CN II-XII intact, moving all extremities, vision grossly intact, hearing grossly intact, normal speech. Absent: altered mental status - Routine Psychiatric Exam Present: normal affect, cooperative Results - Labs CBC & Chem 7: 01/15/18 04:39 01/15/18 04:39 Assessment and Plan (1) Acute respiratory failure Current visit: Yes Status: Acute Assessment and Plan: Impression Acute respiratory failure with hypoxia - Baseline on room air - currently requiring Bipap Acute pulmonary edema Acute kidney injury on top of chronic kidney disease Stage 4 CKD Hyperkalemia (POA) Hypertension Type II DM Hypercholesterolemia Diastolic heart failure - chronic Obstructive of sleep apnea with obesity hypoventilation syndrome - home BiPAP with O2 Chronic back pain Morbid obesity - BMI 62 Plan Renal status/blood pressure stable - seeing increase urine output with Bumex drip. Repeat CXR with little change - ? underlying pneumonia. With continued leukocytosis will add azithromycin 500mg IV daily to currently scheduled daily ceftriaxone. Needing O2 at 6L - uses bipap intermittently. Renal sonogram showing no hydronephrosis. Blood sugars stable. Place PICC line secondary to poor IV access. Recheck BMP in am secondary to BINU and medications use. Will recheck CBC in am due to leukocytosis. Will continue with CCU care for close monitoring of cardiopulmonary status. Case discussed with CM and CCU nursing. Time spent with patient care 35 minutes. DVT Prophylaxis: SCD's, Lovenox Resuscitation Status: Do Not Resuscitate - Time spent with patient Time with patient PN: 35 minutes - Physician Narrative Physician: Shrvaan Garcia MD Narrative: Date: 01/15/18 Time: 1120 Hospital Course Summary Disclaimer: The visit summary below is not to be considered part of the above Progress Note. Hospital Course: 01/14/18 Inpatient Admission to CCU Admit patient to inpatient status under care of Dr. Garcia for acute respiratory failure with hypoxia and pulmonary edema. Continue on BiPAP given respiratory distress. Patient is chronically on Lasix 40 milligrams daily. She was given 20 milligrams IV 1 in the emergency room. She also takes hydrochlorothiazide 50 milligrams daily. Will need to use caution with diuresing given acute renal injury. Will obtain a renal sonogram given acute kidney injury. Other etiology of hypoxia could be pulmonary emboli, however, given renal function, we are unable to give patient IV contrast at this time. Will cover with Lovenox 30 milligrams twice a day for prophylaxis. He recommendations as per pharmacy report. BMI greater than 40 prophylaxis dosing is recommended 30 BID rather than 40 mg daily. Due to known history of congestive heart failure. Will obtain echocardiogram for further cardiac evaluation. TSH, magnesium for laboratory completeness. Monitor Accu-Cheks routinely and obtain a hemoglobin A1c. At time of discharge medical care will return to primary care provider, Tevin SAUCEDO with [employer]. 01/15/18 Renal status/blood pressure stable - seeing increase urine output with Bumex drip. Repeat CXR with little change - ? underlying pneumonia. With continued leukocytosis will add azithromycin 500mg IV daily to currently scheduled daily ceftriaxone. Needing O2 at 6L - uses bipap intermittently. Renal sonogram showing no hydronephrosis. Blood sugars stable. Place PICC line secondary to poor IV access. Recheck BMP in am secondary to BINU and medications use. Will recheck CBC in am due to leukocytosis. Will continue with CCU care for close monitoring of cardiopulmonary status.
[2018-01-15] MEDS ORDERED: PNEUMOCOCCAL 13 VACCINE 0.5ml INJECTION IM ONE (12:08)
[2018-01-15] MEDS: HYDROCODONE/APAP 5mg/325mg TABLET PO PRN (19:30)
[2018-01-15] MEDS: MORPHINE SULFATE 4mg INJECTION IVP PRN (20:53)
[2018-01-15] MEDS: APAP/DIPHENHYDRAMINE 500 MG/25 MG TABLET PO SCH (21:05)
[2018-01-15] MEDS: BUMETANIDE DRIP 25 MG in CONTAINER,EMPTY 100 ML IV SCH (22:51)
[2018-01-16] MEDS: HYDROCODONE/APAP 5mg/325mg TABLET PO PRN ×2 (05:07→12:04)
[2018-01-16] MEDS: MORPHINE SULFATE 4mg INJECTION IVP PRN ×4 (07:42→21:21)
[2018-01-16] MEDS: BUMETANIDE DRIP 25 MG in CONTAINER,EMPTY 100 ML IV SCH (07:42)
[2018-01-16] MEDS: POLYETHYL GLYCOL 3350 17gm PACKET PO SCH (08:40)
[2018-01-16] MEDS: CEFTRIAXONE 1 G in NS 100 ML IV SCH (08:41)
[2018-01-16] MEDS: ASPIRIN *EC* 81 MG TABLET PO SCH ×2 (08:42→20:22)
[2018-01-16] MEDS: AMLODIPINE 10 MG TABLET PO SCH (08:42)
[2018-01-16] MEDS: ENOXAPARIN 30 MG/0.3 ML INJECTION SQ SCH ×2 (08:43→20:22)
[2018-01-16] MEDS: ACETAMINOPHEN 325 MG TABLET PO PRN (09:03)
[2018-01-16] MEDS: AZITHROMYCIN IV 500 MG in NS 250ml 250 ML IV SCH (09:28)
[2018-01-16 09:45] VITALS: BMI 60.2
--- NOTE | 2018-01-16 12:35 | Progress Note ---
- Date 01/16/18 Subjective: F/U: Acute respiratory failure with hypoxia, Acute pulmonary edema Breathing slightly better-feels less congested. Not having cough or pain with breathing. Needing BiPAP less; tolerating BIPAP. No chest heaviness or fullness. Denies chest pain/palpitation. Minimal appetite. Nausea at times. No stool, decreased flatus output. Legs still feel very sore and uncomfortable. Swelling with little change. Urine output increased with Bumex drip - creatinine increased to 3.6. Objective Vital signs: Temperature 97.8 F 01/16/18 09:00 Pulse Rate 91 01/16/18 10:30 Respiratory Rate 27 H 01/16/18 10:30 Blood Pressure 143/63 H 01/16/18 10:18 Pulse Oximetry 90 01/16/18 10:30 Height/Weight/BMI: Height 1.7 m Weight 174.5 kg Body Mass Index 60.2 - Constitutional Present: mild distress, well nourished, well developed, average body habitus, morbidly obese, cooperative - Routine HEENT Exam Head: Present: normocephalic, atraumatic Eye: Present: EOMI, PERRL ENT: Present: mucous membranes moist - Routine Respiratory Exam Present: decreased breath sounds, distant breath sounds, diminished air movement. Absent: respiratory distress, wheezes, crackles - Routine Cardiovascular Exam Present: RRR, no murmur - Routine Abdominal Exam Present: soft, normoactive bowel sounds, non distended, non tender - Routine Exam Comments: Velazquez present - Routine Extremities Exam Present: edema (+4 Bilateral upper/lower ). Absent: cyanosis, clubbing - Routine Skin Exam Present: dry, warm - Routine Neurological Exam Present: alert, oriented X3, CN II-XII intact, vision grossly intact, hearing grossly intact, normal speech. Absent: altered mental status - Routine Psychiatric Exam Present: normal affect, cooperative Results - Labs CBC & Chem 7: 01/16/18 03:32 01/16/18 03:32 Assessment and Plan (1) Acute respiratory failure Current visit: Yes Status: Acute Assessment and Plan: Impression Acute respiratory failure with hypoxia - Baseline on room air - currently requiring Bipap Acute pulmonary edema Suspect pneumonia Acute kidney injury on top of chronic kidney disease Stage 4 CKD Hyperkalemia (POA) - resolved Leukocytosis (POA) resolved Hypertension Type II DM Hypercholesterolemia Diastolic heart failure - chronic Obstructive of sleep apnea with obesity hypoventilation syndrome - home BiPAP with O2 at night Chronic back pain Morbid obesity - BMI 62 Plan Will obtain Doppler tests lower ext due to pain and swelling to R/O DVT. Recheck BMP to monitor renal status as seeing increase to 3.6 this am. Urine output increased. Continue ceftriaxone and azithromycin for pulmonary coverage of potential pneumonia. O2 needs decreasing - wean O2 as able, BiPAP at night and during day as needed. Recheck CBC in am due to resolving leukocytosis. Recheck BMP in am secondary to BINU and medication use. Recheck CXR tomorrow of f/u pulm edema. Case discussed with CM and CCU nursing. Time spent with patient care 35 minutes. DVT Prophylaxis: SCD's, Lovenox Resuscitation Status: Do Not Resuscitate - Time spent with patient Time with patient PN: 25 minutes - Physician Narrative Narrative: Date: 01/16/18 Time: 1232 Hospital Course Summary Disclaimer: The visit summary below is not to be considered part of the above Progress Note. Hospital Course: 01/14/18 Inpatient Admission to CCU Admit patient to inpatient status under care of Dr. Garcia for acute respiratory failure with hypoxia and pulmonary edema. Continue on BiPAP given respiratory distress. Patient is chronically on Lasix 40 milligrams daily. She was given 20 milligrams IV 1 in the emergency room. She also takes hydrochlorothiazide 50 milligrams daily. Will need to use caution with diuresing given acute renal injury. Will obtain a renal sonogram given acute kidney injury. Other etiology of hypoxia could be pulmonary emboli, however, given renal function, we are unable to give patient IV contrast at this time. Will cover with Lovenox 30 milligrams twice a day for prophylaxis. He recommendations as per pharmacy report. BMI greater than 40 prophylaxis dosing is recommended 30 BID rather than 40 mg daily. Due to known history of congestive heart failure. Will obtain echocardiogram for further cardiac evaluation. TSH, magnesium for laboratory completeness. Monitor Accu-Cheks routinely and obtain a hemoglobin A1c. At time of discharge medical care will return to primary care provider, Tevin SAUCEDO with [employer]. 01/15/18 Renal status/blood pressure stable - seeing increase urine output with Bumex drip. Repeat CXR with little change - ? underlying pneumonia. With continued leukocytosis will add azithromycin 500mg IV daily to currently scheduled daily ceftriaxone. Needing O2 at 6L - uses bipap intermittently. Renal sonogram showing no hydronephrosis. Blood sugars stable. Place PICC line secondary to poor IV access. Recheck BMP in am secondary to BINU and medications use. Will recheck CBC in am due to leukocytosis. Will continue with CCU care for close monitoring of cardiopulmonary status. 01/16/18 Will obtain Doppler tests lower ext due to pain and swelling to R/O DVT. Recheck BMP to monitor renal status as seeing increase to 3.6 this am. Urine output increased. Continue ceftriaxone and azithromycin for pulmonary coverage of potential pneumonia. O2 needs decreasing - wean O2 as able, BiPAP at night and during day as needed.
--- NOTE | 2018-01-16 14:03 | Ultrasound Report ---
Indication: Leg pain and swelling PROCEDURE: US venous doppler LE BI: Encounter: Initial Comparison: None Technique: Color Doppler duplex and grayscale sonographic imaging of both lower extremities was performed. Findings: There is no evidence for acute deep venous thrombosis in either thigh. Specifically, serial graded compression was performed from the inguinal ligament to the popliteal bifurcation, bilaterally, demonstrating appropriate compressibility of the deep venous system. In addition, color and pulsed Doppler demonstrate appropriate spontaneous flow, variation with respiration, and augmentation with calf compression. At the ankle, normal flow is identified in the posterior tibial veins; these vessels are also normal in caliber. Impression: No evidence of acute DVT in either lower limb. .
[2018-01-16] MEDS: APAP/DIPHENHYDRAMINE 500 MG/25 MG TABLET PO SCH (20:22)
[2018-01-16] MEDS: SALINE FLUSH 10ml SYRINGE IVF PRN (20:51)
[2018-01-16] MEDS: ONDANSETRON 4 MG/2 ML INJECTION IVP PRN (21:37)
[2018-01-17] MEDS: HYDROCODONE/APAP 5mg/325mg TABLET PO PRN ×4 (00:30→23:31)
[2018-01-17] MEDS: SALINE FLUSH 10ml SYRINGE IVF PRN ×5 (01:10→22:09)
[2018-01-17] MEDS: MORPHINE SULFATE 4mg INJECTION IVP PRN ×2 (01:10→22:09)
[2018-01-17] MEDS ORDERED: MORPHINE SULFATE 4mg INJECTION IVP ONE (02:43)
[2018-01-17] MEDS: ACETAMINOPHEN 325 MG TABLET PO PRN (03:31)
[2018-01-17] MEDS: BUMETANIDE DRIP 25 MG in CONTAINER,EMPTY 100 ML IV SCH (07:31)
[2018-01-17] MEDS: ENOXAPARIN 30 MG/0.3 ML INJECTION SQ SCH ×2 (08:38→20:07)
[2018-01-17] MEDS: CEFTRIAXONE 1 G in NS 100 ML IV SCH (08:39)
[2018-01-17] MEDS: AMLODIPINE 10 MG TABLET PO SCH (08:49)
[2018-01-17] MEDS: POLYETHYL GLYCOL 3350 17gm PACKET PO SCH (08:50)
[2018-01-17] MEDS: ASPIRIN *EC* 81 MG TABLET PO SCH ×2 (08:50→20:08)
[2018-01-17] MEDS: SENNA + DOCUSATE TABLET PO PRN (08:50)
[2018-01-17] MEDS ORDERED: LACTULOSE 20 GM/30 ML ORAL LIQUID PO ONE (09:56)
--- NOTE | 2018-01-17 10:06 | Progress Note ---
- Date 01/17/18 Subjective: Patient shakes her head when asked how she is doing. Says her breathing and cough are improving. RN says patient needed to go back on BiPAP earlier. Patient c/o hurting all over. She had temp 101.4 overnight. She also had some episodes of sharp chest pain that lasted a few seconds. She has not had a stool since admission. No flatus. She has had nausea. Objective Vital signs: Temperature 99.3 F 01/17/18 04:00 Pulse Rate 92 01/17/18 06:00 Respiratory Rate 25 H 01/17/18 06:00 Blood Pressure 178/85 H 01/17/18 06:00 Pulse Oximetry 92 01/17/18 06:00 Rhythm: Normal Sinus Rhythm Height/Weight/BMI: Height 5 ft 7 in Weight 175.5 kg Body Mass Index 60.2 - Constitutional Present: mild distress - Routine HEENT Exam Head: Present: normocephalic, atraumatic Eye: Present: EOMI, PERRL ENT: Present: mucous membranes moist - Routine Respiratory Exam Present: rhonchi, distant breath sounds - Routine Cardiovascular Exam Present: RRR, S1, S2 - Routine Abdominal Exam Present: tenderness, distended. Absent: rebound, guarding - Routine Extremities Exam Present: edema - Routine Neurological Exam Present: alert, oriented X3, moving all extremities Results - Labs CBC & Chem 7: 01/17/18 04:49 01/17/18 04:49 Microbiology Results: Microbiology 01/16/18 22:17 Midline Blood Culture - Preliminary Culture Initiated - Results Pending 01/16/18 22:15 Midline Blood Culture - Preliminary Culture Initiated - Results Pending Assessment and Plan (1) Acute respiratory failure Current visit: Yes Status: Acute Assessment and Plan: Impression Acute respiratory failure with hypoxia - Baseline on room air - currently requiring Bipap Acute pulmonary edema Suspect pneumonia Acute kidney injury on top of chronic kidney disease Stage 4 CKD Hyperkalemia (POA) - resolved Leukocytosis (POA) resolved Hypertension Type II DM Hypercholesterolemia Diastolic heart failure - chronic Obstructive of sleep apnea with obesity hypoventilation syndrome - home BiPAP with O2 at night Chronic back pain Morbid obesity - BMI 62 Plan Continue nocturnal and prn BiPAP. Blood cx drawn for last night's fever. Check CXR. Continue ceftriaxone and azithromycin. WBC up slightly. Monitor. SCr continues at 3.6. Will DC Bumex drip and schedule 2 mg iv tid. Continue to monitor SCr. Add lactulose dose and trial of enemas. Doppler of BLE negative for DVT. Case discussed with CCU nursing, patient's family. Time spent with patient care 35 minutes. - Physician Narrative Narrative: Date: 01/17/18 Time: 0959 Hospital Course Summary Disclaimer: The visit summary below is not to be considered part of the above Progress Note. Hospital Course: 01/14/18 Inpatient Admission to CCU Admit patient to inpatient status under care of Dr. Garcia for acute respiratory failure with hypoxia and pulmonary edema. Continue on BiPAP given respiratory distress. Patient is chronically on Lasix 40 milligrams daily. She was given 20 milligrams IV 1 in the emergency room. She also takes hydrochlorothiazide 50 milligrams daily. Will need to use caution with diuresing given acute renal injury. Will obtain a renal sonogram given acute kidney injury. Other etiology of hypoxia could be pulmonary emboli, however, given renal function, we are unable to give patient IV contrast at this time. Will cover with Lovenox 30 milligrams twice a day for prophylaxis. He recommendations as per pharmacy report. BMI greater than 40 prophylaxis dosing is recommended 30 BID rather than 40 mg daily. Due to known history of congestive heart failure. Will obtain echocardiogram for further cardiac evaluation. TSH, magnesium for laboratory completeness. Monitor Accu-Cheks routinely and obtain a hemoglobin A1c. At time of discharge medical care will return to primary care provider, Tevin SAUCEDO with [facility]. 01/15/18 Renal status/blood pressure stable - seeing increase urine output with Bumex drip. Repeat CXR with little change - ? underlying pneumonia. With continued leukocytosis will add azithromycin 500mg IV daily to currently scheduled daily ceftriaxone. Needing O2 at 6L - uses bipap intermittently. Renal sonogram showing no hydronephrosis. Blood sugars stable. Place PICC line secondary to poor IV access. Recheck BMP in am secondary to BINU and medications use. Will recheck CBC in am due to leukocytosis. Will continue with CCU care for close monitoring of cardiopulmonary status. 01/16/18 Will obtain Doppler tests lower ext due to pain and swelling to R/O DVT. Recheck BMP to monitor renal status as seeing increase to 3.6 this am. Urine output increased. Continue ceftriaxone and azithromycin for pulmonary coverage of potential pneumonia. O2 needs decreasing - wean O2 as able, BiPAP at night and during day as needed. 01/17 Continue nocturnal and prn BiPAP. Blood cx drawn for last night's fever. Check CXR. Continue ceftriaxone and azithromycin. WBC up slightly. Monitor. SCr continues at 3.6. Will DC Bumex drip and schedule 2 mg iv tid. Continue to monitor SCr. Add lactulose dose and trial of enemas. Doppler of BLE negative for DVT.
[2018-01-17] MEDS: AZITHROMYCIN IV 500 MG in NS 250ml 250 ML IV SCH (11:13)
[2018-01-17] MEDS: ATENOLOL 25 MG TABLET PO SCH (20:08)
[2018-01-17] MEDS: APAP/DIPHENHYDRAMINE 500 MG/25 MG TABLET PO SCH (20:09)
[2018-01-17] MEDS: HYDRALAZINE 20 MG/ML INJECTION IVP PRN (23:45)
[2018-01-18] MEDS ORDERED: AMLODIPINE 5 MG TABLET PO ONE (00:54)
[2018-01-18] MEDS: ACETAMINOPHEN 325 MG TABLET PO PRN ×2 (04:45→13:42)
[2018-01-18] MEDS: MORPHINE SULFATE 4mg INJECTION IVP PRN (05:13)
[2018-01-18] MEDS: SALINE FLUSH 10ml SYRINGE IVF PRN ×5 (05:14→20:59)
[2018-01-18] MEDS: HYDRALAZINE 20 MG/ML INJECTION IVP PRN (06:03)
[2018-01-18] MEDS: AZITHROMYCIN IV 500 MG in NS 250ml 250 ML IV SCH (08:46)
[2018-01-18] MEDS: ENOXAPARIN 30 MG/0.3 ML INJECTION SQ SCH ×2 (08:51→20:58)
[2018-01-18] MEDS: POLYETHYL GLYCOL 3350 17gm PACKET PO SCH (09:30)
[2018-01-18] MEDS: HYDROCODONE/APAP 5mg/325mg TABLET PO PRN (09:31)
[2018-01-18] MEDS: ATENOLOL 25 MG TABLET PO SCH ×2 (09:32→21:01)
[2018-01-18] MEDS: AMLODIPINE 10 MG TABLET PO SCH (09:32)
[2018-01-18] MEDS: SENNA + DOCUSATE TABLET PO PRN (09:32)
[2018-01-18] MEDS: ASPIRIN *EC* 81 MG TABLET PO SCH ×2 (09:33→20:59)
--- NOTE | 2018-01-18 10:02 | XRay Report ---
Indication: fever PROCEDURE: XR chest 1V: Encounter: Initial Comparison: January 15, 2018 Findings: Bilateral airspace consolidation is improved, more so on the right. No new or worsening airspace disease. No pneumothorax. Heart size and mediastinal contours are stable. Pulmonary vascularity is obscured. Impression: Improving airspace disease. .
[2018-01-18] MEDS: CEFTRIAXONE 1 G in NS 100 ML IV SCH (10:41)
--- NOTE | 2018-01-18 15:28 | Progress Note ---
- Date 01/18/18 Subjective: Patient is resting comfortably. Says she feels so-so. Says the reason is left leg pain. Pain varies between knee and hip. This has been ongoing issue for past year. She says her breathing is OK. She is on 14 L and has been off BiPAP most of the day. Still not much appetite. She says that even if family brought her favorite meal, she might not want to eat. Objective Vital signs: Temperature 98.8 F 01/18/18 08:01 Pulse Rate 82 01/18/18 12:00 Respiratory Rate 28 H 01/18/18 11:06 Blood Pressure 135/63 01/18/18 11:06 Pulse Oximetry 88 L 01/18/18 11:06 Rhythm: Normal Sinus Rhythm Height/Weight/BMI: Height 5 ft 7 in Weight 172.9 kg Body Mass Index 60.2 - Constitutional Present: no acute distress - Routine HEENT Exam Head: Present: normocephalic, atraumatic Eye: Present: EOMI, PERRL ENT: Present: mucous membranes moist - Routine Respiratory Exam Present: diminished air movement - Routine Cardiovascular Exam Present: RRR, S1, S2 - Routine Abdominal Exam Present: soft, normoactive bowel sounds, non distended, non tender - Routine Extremities Exam Present: edema - Routine Neurological Exam Present: alert, oriented X3 - Routine Psychiatric Exam Present: cooperative Results - Labs CBC & Chem 7: 01/18/18 05:03 01/18/18 05:03 Microbiology Results: Microbiology 01/16/18 22:15 Midline Blood Culture - Preliminary No Growth After 1 Day 01/16/18 22:17 Midline Blood Culture - Preliminary No Growth After 1 Day Assessment and Plan (1) Acute respiratory failure Current visit: Yes Status: Acute Assessment and Plan: Impression Acute respiratory failure with hypoxia - Baseline on room air - currently requiring Bipap Acute pulmonary edema Suspect pneumonia Acute kidney injury on top of chronic kidney disease Stage 4 CKD Hyperkalemia (POA) - resolved Leukocytosis (POA) resolved Hypertension Type II DM Hypercholesterolemia Diastolic heart failure - chronic Obstructive of sleep apnea with obesity hypoventilation syndrome - home BiPAP with O2 at night Chronic back pain Morbid obesity - BMI 62 Plan Continue nocturnal and prn BiPAP. Blood cx drawn for Friday night's fever show no growth. CXR shows improvement. Continue ceftriaxone and azithromycin. WBC up slightly. Monitor. SCr at 3.5. BUN trending up at 87. Bumex 2 mg iv tid. I/O 2333/2671. Continue to monitor. Bowels moved after lactulose and enema. Doppler of BLE negative for DVT. Increase Justice to 7.5 for pain. BP better today. Glucose ranged 109-184 today. Case discussed with CCU nursing, patient's family. Time spent with patient care 35 minutes. - Physician Narrative Narrative: Date: 01/18/18 Time: 1523 Hospital Course Summary Disclaimer: The visit summary below is not to be considered part of the above Progress Note. Hospital Course: 01/14/18 Inpatient Admission to CCU Admit patient to inpatient status under care of Dr. Garcia for acute respiratory failure with hypoxia and pulmonary edema. Continue on BiPAP given respiratory distress. Patient is chronically on Lasix 40 milligrams daily. She was given 20 milligrams IV 1 in the emergency room. She also takes hydrochlorothiazide 50 milligrams daily. Will need to use caution with diuresing given acute renal injury. Will obtain a renal sonogram given acute kidney injury. Other etiology of hypoxia could be pulmonary emboli, however, given renal function, we are unable to give patient IV contrast at this time. Will cover with Lovenox 30 milligrams twice a day for prophylaxis. He recommendations as per pharmacy report. BMI greater than 40 prophylaxis dosing is recommended 30 BID rather than 40 mg daily. Due to known history of congestive heart failure. Will obtain echocardiogram for further cardiac evaluation. TSH, magnesium for laboratory completeness. Monitor Accu-Cheks routinely and obtain a hemoglobin A1c. At time of discharge medical care will return to primary care provider, Tevin SAUCEDO with [facility]. 01/15/18 Renal status/blood pressure stable - seeing increase urine output with Bumex drip. Repeat CXR with little change - ? underlying pneumonia. With continued leukocytosis will add azithromycin 500mg IV daily to currently scheduled daily ceftriaxone. Needing O2 at 6L - uses bipap intermittently. Renal sonogram showing no hydronephrosis. Blood sugars stable. Place PICC line secondary to poor IV access. Recheck BMP in am secondary to BINU and medications use. Will recheck CBC in am due to leukocytosis. Will continue with CCU care for close monitoring of cardiopulmonary status. 01/16/18 Will obtain Doppler tests lower ext due to pain and swelling to R/O DVT. Recheck BMP to monitor renal status as seeing increase to 3.6 this am. Urine output increased. Continue ceftriaxone and azithromycin for pulmonary coverage of potential pneumonia. O2 needs decreasing - wean O2 as able, BiPAP at night and during day as needed. 01/17 Continue nocturnal and prn BiPAP. Blood cx drawn for last night's fever. Check CXR. Continue ceftriaxone and azithromycin. WBC up slightly. Monitor. SCr continues at 3.6. Will DC Bumex drip and schedule 2 mg iv tid. Continue to monitor SCr. Add lactulose dose and trial of enemas. Doppler of BLE negative for DVT. 01/18 Continue nocturnal and prn BiPAP. Blood cx drawn for Friday night's fever show no growth. CXR shows improvement. Continue ceftriaxone and azithromycin. WBC up slightly. Monitor. SCr at 3.5. BUN trending up at 87. Bumex 2 mg iv tid. I/O 2333/2671. Continue to monitor. Bowels moved after lactulose and enema. Doppler of BLE negative for DVT. Increase Justice to 7.5 for pain. BP better today. Glucose ranged 109-184 today.
[2018-01-18] MEDS: HYDROCODONE/APAP 7.5 MG/325 MG TABLET PO PRN (19:01)
[2018-01-18] MEDS: APAP/DIPHENHYDRAMINE 500 MG/25 MG TABLET PO SCH (20:59)
[2018-01-19] MEDS: HYDROCODONE/APAP 7.5 MG/325 MG TABLET PO PRN (01:50)
[2018-01-19] MEDS: SALINE FLUSH 10ml SYRINGE IVF PRN ×4 (03:16→20:52)
[2018-01-19] MEDS: ONDANSETRON 4 MG/2 ML INJECTION IVP PRN ×2 (05:46→10:39)
[2018-01-19] MEDS: ATENOLOL 25 MG TABLET PO SCH ×2 (08:04→21:43)
[2018-01-19] MEDS: AMLODIPINE 10 MG TABLET PO SCH (08:04)
[2018-01-19] MEDS: ASPIRIN *EC* 81 MG TABLET PO SCH ×2 (08:04→20:50)
[2018-01-19] MEDS: ENOXAPARIN 30 MG/0.3 ML INJECTION SQ SCH ×2 (08:05→20:51)
[2018-01-19] MEDS: CEFTRIAXONE 1 G in NS 100 ML IV SCH (08:05)
[2018-01-19] MEDS: AZITHROMYCIN IV 500 MG in NS 250ml 250 ML IV SCH (08:46)
[2018-01-19] MEDS: POLYETHYL GLYCOL 3350 17gm PACKET PO SCH (09:02)
--- NOTE | 2018-01-19 11:14 | Progress Note ---
- Date 01/19/18 Subjective: F/U: Acute respiratory failure with hypoxia, Acute pulmonary edema About the same. Still SOA, but O2 needs decreasing. Down to 4L per NC. Attempted to get up with nursing and therapy-very taxing. Limited by leg pain and fear of being up. Unsteady. Little appetite. Stools moving. C diff neg (not surprising). Tired/weak in general. Objective Vital signs: Temperature 98.4 F 01/19/18 10:00 Pulse Rate 84 01/19/18 10:00 Respiratory Rate 28 H 01/19/18 10:00 Blood Pressure 137/62 01/19/18 10:00 Pulse Oximetry 97 01/19/18 10:00 Rhythm: Normal Sinus Rhythm Height/Weight/BMI: Height 1.7 m Weight 173 kg Body Mass Index 60.2 - Constitutional Present: well nourished, well developed, morbidly obese, cooperative - Routine HEENT Exam Head: Present: normocephalic, atraumatic Eye: Present: EOMI, PERRL ENT: Present: mucous membranes moist - Routine Respiratory Exam Present: decreased breath sounds, distant breath sounds, diminished air movement. Absent: rales, respiratory distress, rhonchi, wheezes, crackles - Routine Cardiovascular Exam Present: RRR, no murmur - Routine Abdominal Exam Present: soft, normoactive bowel sounds, non distended, non tender - Routine Exam Comments: Velazquez present - Routine Extremities Exam Present: edema (+3 B upper/lower ). Absent: cyanosis, clubbing - Routine Skin Exam Present: dry, warm - Routine Neurological Exam Present: alert, CN II-XII intact, vision grossly intact, hearing grossly intact , normal speech. Absent: altered mental status - Routine Psychiatric Exam Present: normal affect, normal thought process, cooperative Results - Labs CBC & Chem 7: 01/19/18 04:41 01/19/18 04:41 Microbiology Results: Microbiology 01/16/18 22:17 Midline Blood Culture - Preliminary No Growth After 2 Days 01/16/18 22:15 Midline Blood Culture - Preliminary No Growth After 2 Days Assessment and Plan (1) Acute respiratory failure Current visit: Yes Status: Acute Assessment and Plan: Impression Acute respiratory failure with hypoxia - Baseline on room air - currently requiring Bipap Acute pulmonary edema Suspect pneumonia Acute kidney injury on top of chronic kidney disease Stage 4 CKD Hyperkalemia (POA) - resolved Leukocytosis (POA) resolved Hyperphosphatemia secondary to CKD Hypertension Type II DM Hypercholesterolemia Diastolic heart failure - chronic Obstructive of sleep apnea with obesity hypoventilation syndrome - home BiPAP with O2 at night Chronic back pain Morbid obesity - BMI 62 Plan Will continue ceftriaxone for pulmonary coverage - can stop azithromycin as course completed. Wean O2 as able. CPAP with O2 at night. Encourage deep breathing/IS for lung exercises. PT/OT to help functional status. Encourage increased activities - up to chair/ ambulate. Bumex 2 mg iv tid. Creatinine and potassium stable. Add PhosLo TID as phosphorus elevated secondary to CKD. Bowels moved after lactulose and enema. C diff negative. Recheck CBC and BMP in am secondary to BINU and medication use. Can transfer patient to medical floor for continuation of care. Case discussed with CCU nursing and patient's . Time spent with patient care 35 minutes. DVT Prophylaxis: Lovenox Resuscitation Status: Do Not Resuscitate - Time spent with patient Time with patient PN: 25 minutes - Physician Narrative Physician: Shravan Garcia MD Narrative: Date: 01/19/18 Time: 1111 Hospital Course Summary Disclaimer: The visit summary below is not to be considered part of the above Progress Note. Hospital Course: 01/14/18 Inpatient Admission to CCU Admit patient to inpatient status under care of Dr. Garcia for acute respiratory failure with hypoxia and pulmonary edema. Continue on BiPAP given respiratory distress. Patient is chronically on Lasix 40 milligrams daily. She was given 20 milligrams IV 1 in the emergency room. She also takes hydrochlorothiazide 50 milligrams daily. Will need to use caution with diuresing given acute renal injury. Will obtain a renal sonogram given acute kidney injury. Other etiology of hypoxia could be pulmonary emboli, however, given renal function, we are unable to give patient IV contrast at this time. Will cover with Lovenox 30 milligrams twice a day for prophylaxis. He recommendations as per pharmacy report. BMI greater than 40 prophylaxis dosing is recommended 30 BID rather than 40 mg daily. Due to known history of congestive heart failure. Will obtain echocardiogram for further cardiac evaluation. TSH, magnesium for laboratory completeness. Monitor Accu-Cheks routinely and obtain a hemoglobin A1c. At time of discharge medical care will return to primary care provider, Tevin SAUCEDO with [facility]. 01/15/18 Renal status/blood pressure stable - seeing increase urine output with Bumex drip. Repeat CXR with little change - ? underlying pneumonia. With continued leukocytosis will add azithromycin 500mg IV daily to currently scheduled daily ceftriaxone. Needing O2 at 6L - uses bipap intermittently. Renal sonogram showing no hydronephrosis. Blood sugars stable. Place PICC line secondary to poor IV access. Recheck BMP in am secondary to BINU and medications use. Will recheck CBC in am due to leukocytosis. Will continue with CCU care for close monitoring of cardiopulmonary status. 01/16/18 Will obtain Doppler tests lower ext due to pain and swelling to R/O DVT. Recheck BMP to monitor renal status as seeing increase to 3.6 this am. Urine output increased. Continue ceftriaxone and azithromycin for pulmonary coverage of potential pneumonia. O2 needs decreasing - wean O2 as able, BiPAP at night and during day as needed. 01/17/18 Continue nocturnal and prn BiPAP. Blood cx drawn for last night's fever. Check CXR. Continue ceftriaxone and azithromycin. WBC up slightly. Monitor. SCr continues at 3.6. Will DC Bumex drip and schedule 2 mg iv tid. Continue to monitor SCr. Add lactulose dose and trial of enemas. Doppler of BLE negative for DVT. 01/18/18 Continue nocturnal and prn BiPAP. Blood cx drawn for Friday night's fever show no growth. CXR shows improvement. Continue ceftriaxone and azithromycin. WBC up slightly. Monitor. SCr at 3.5. BUN trending up at 87. Bumex 2 mg iv tid. I/O 2333/2671. Continue to monitor. Bowels moved after lactulose and enema. Increase [place] to 7.5 for pain. BP better today. 01/19/18 Will continue ceftriaxone for pulmonary coverage - can stop azithromycin as course completed. Wean O2 as able. CPAP with O2 at night. Encourage deep breathing/IS for lung exercises. PT/OT to help functional status. Encourage increased activities - up to chair/ ambulate. Bumex 2 mg iv tid. Creatinine and potassium stable. Add PhosLo TID as phosphorus elevated secondary to CKD. Bowels moved after lactulose and enema. C diff negative. Can transfer patient to medical floor for continuation of care.
[2018-01-19] MEDS: CALCIUM ACETATE 667 MG CAPSULE PO SCH ×2 (13:38→18:07)
[2018-01-19] MEDS: MORPHINE SULFATE 4mg INJECTION IVP PRN (16:27)
--- NOTE | 2018-01-19 19:14 | Echocardiogram ---
DATE OF STUDY 01/15/2018 INDICATIONS Pulmonary edema. TECHNICAL QUALITY Technically very difficult 2D, M-mode, Doppler echocardiographic images, due to quite challenging acoustic windows, were submitted for interpretation. FINDINGS 1. CARDIAC CHAMBERS: Left atrial diameter of 3.7 cm is normal. Left ventricle is dilated, measuring 6.1 cm. Right heart cardiac chambers don't appear enlarged. 2. LEFT VENTRICLE: Borderline concentric LVH is present. Wall motion analysis is abnormal. Posterior wall appears echogenic and thinned out as judged on limited views. LV function is judged based on very limited views, namely the parasternal long axis view and limited short axis view. There is probably mild LV systolic dysfunction. EF in the range of 45%-50%. This cannot be confirmed, however, due to difficult images. E/A is normal at 1.1. No tissue Doppler was performed for full diastolic function assessment. 3. VALVES: Aortic and mitral valve exhibit sclerotic changes. Visualization of the leaflets is quite poor due to very difficult acoustic windows. Doppler study shows questionable trace mitral regurgitation. No significant aortic stenosis with a mean gradient of only 9 mmHg, peak velocity of 2.1 m/sec and a valve area of 2.4. Trace tricuspid regurgitation with estimated systolic PA pressure of 26-31 mmHg. 4. Central venous pressure cannot be adequately assessed due to the patient being on BiPAP and exhibits a dilated IVC which is a nonspecific finding in the presence of positive intrathoracic pressure. 5. No evidence of pericardial effusion, intracardiac masses, thrombi, vegetations or demonstrable shunts on this very limited study. IMPRESSION 1. Left ventricular enlargement. 2. Mild concentric LVH. 3. LV systolic function appears mildly reduced based on very limited views. 4. No significant valvular dysfunction. 5. Clinically very difficult study due to poor acoustic windows caused by patient's body habitus, being on BiPAP and in ICU. MTDD
[2018-01-19] MEDS: APAP/DIPHENHYDRAMINE 500 MG/25 MG TABLET PO SCH (20:50)
[2018-01-19] MEDS: SENNA + DOCUSATE TABLET PO PRN (20:51)
[2018-01-20] MEDS: MORPHINE SULFATE 4mg INJECTION IVP PRN ×2 (02:00→04:36)
[2018-01-20] MEDS: SALINE FLUSH 10ml SYRINGE IVF PRN ×3 (02:01→06:43)
[2018-01-20] MEDS: ASPIRIN *EC* 81 MG TABLET PO SCH ×2 (09:20→20:51)
[2018-01-20] MEDS: CALCIUM ACETATE 667 MG CAPSULE PO SCH ×3 (09:20→18:34)
[2018-01-20] MEDS: AMLODIPINE 10 MG TABLET PO SCH (09:20)
[2018-01-20] MEDS: ATENOLOL 25 MG TABLET PO SCH (09:20)
[2018-01-20] MEDS: LINACLOTIDE 145 MCG CAPSULE PO SCH (09:21)
[2018-01-20] MEDS: ENOXAPARIN 30 MG/0.3 ML INJECTION SQ SCH ×2 (09:21→20:52)
[2018-01-20] MEDS: CEFTRIAXONE 1 G in NS 100 ML IV SCH (09:27)
[2018-01-20] MEDS: POLYETHYL GLYCOL 3350 17gm PACKET PO SCH (09:33)
[2018-01-20] MEDS: HYDROCODONE/APAP 7.5 MG/325 MG TABLET PO PRN (10:20)
--- NOTE | 2018-01-20 10:43 | Progress Note ---
- Date 01/20/18 Subjective: F/U: Acute respiratory failure with hypoxia, Acute pulmonary edema Resting the morning-groggy as recently had [place]. Little change. Appetite diminished-not wanting to eat. Does get crampy and bloated with eating. Bowels moving. Nausea a times. Breathing still feels short-maybe slightly better. Not having cough or pain with breathing. Had difficulty tolerating BiPAP last night. Leg pain still problematic-hurts with movements. Tries to minimize narcotic use as make her tired and groggy. Objective Vital signs: Temperature 97.3 F 01/20/18 08:14 Pulse Rate 72 01/20/18 08:14 Respiratory Rate 22 01/20/18 08:14 Blood Pressure 143/69 H 01/20/18 08:14 Pulse Oximetry 93 01/20/18 09:40 Rhythm: Normal Sinus Rhythm Height/Weight/BMI: Height 1.7 m Weight 175 kg Body Mass Index 60.2 - Constitutional Present: well nourished, well developed, morbidly obese, somnolent - Routine HEENT Exam Head: Present: normocephalic, atraumatic Eye: Present: EOMI, PERRL ENT: Present: mucous membranes moist - Routine Respiratory Exam Present: decreased breath sounds. Absent: rales, rhonchi, wheezes, crackles - Routine Cardiovascular Exam Present: RRR, no murmur - Routine Abdominal Exam Present: soft, normoactive bowel sounds, non distended, non tender - Routine Exam Comments: Velazquez in place - Routine Extremities Exam Present: edema (+3 BLE ) - Routine Musculoskeletal Exam Musculoskeletal: Present: no clubbing or cyanosis - Routine Skin Exam Present: dry, warm - Routine Neurological Exam Present: alert, CN II-XII intact, vision grossly intact, hearing grossly intact. Absent: altered mental status - Routine Psychiatric Exam Present: normal affect, cooperative Results - Labs CBC & Chem 7: 01/20/18 04:05 01/20/18 04:05 Microbiology Results: Microbiology 01/16/18 22:17 Midline Blood Culture - Preliminary No Growth After 3 Days 01/16/18 22:15 Midline Blood Culture - Preliminary No Growth After 3 Days Assessment and Plan (1) Acute respiratory failure Current visit: Yes Status: Acute Assessment and Plan: Impression Acute respiratory failure with hypoxia - Baseline on room air - currently requiring Bipap Acute pulmonary edema Suspect pneumonia Acute kidney injury on top of chronic kidney disease Stage 4 CKD Hyperkalemia (POA) - resolved Leukocytosis (POA) resolved Hyperphosphatemia secondary to CKD Hypertension Type II DM Hypercholesterolemia Diastolic heart failure - chronic Obstructive of sleep apnea with obesity hypoventilation syndrome - home BiPAP with O2 at night Chronic back pain Morbid obesity - BMI 62 Plan Continue ceftriaxone for pulmonary coverage. Continue O2 and BiPAP. Encourage breathing activities. PT/OT to help functional status. Encourage increased activities - up to chair/ ambulate. Bumex 2 mg iv tid. Creatinine and potassium stable. Increase atenolol to 50mg BID. Will add prn simethicone to help decrease abdominal cramping and bloating. Recheck CBC, Phos, and BMP in am secondary to BINU and medication use. Case discussed with CCU nursing and patient's . Time spent with patient care 25 minutes. DVT Prophylaxis: SCD's, Lovenox Resuscitation Status: Do Not Resuscitate - Time spent with patient Time with patient PN: 25 minutes - Physician Narrative Physician: Shravan Garcia MD Narrative: Date: 01/20/18 Time: 1039 Hospital Course Summary Disclaimer: The visit summary below is not to be considered part of the above Progress Note. Hospital Course: 01/14/18 Inpatient Admission to CCU Admit patient to inpatient status under care of Dr. Garcia for acute respiratory failure with hypoxia and pulmonary edema. Continue on BiPAP given respiratory distress. Patient is chronically on Lasix 40 milligrams daily. She was given 20 milligrams IV 1 in the emergency room. She also takes hydrochlorothiazide 50 milligrams daily. Will need to use caution with diuresing given acute renal injury. Will obtain a renal sonogram given acute kidney injury. Other etiology of hypoxia could be pulmonary emboli, however, given renal function, we are unable to give patient IV contrast at this time. Will cover with Lovenox 30 milligrams twice a day for prophylaxis. He recommendations as per pharmacy report. BMI greater than 40 prophylaxis dosing is recommended 30 BID rather than 40 mg daily. Due to known history of congestive heart failure. Will obtain echocardiogram for further cardiac evaluation. TSH, magnesium for laboratory completeness. Monitor Accu-Cheks routinely and obtain a hemoglobin A1c. At time of discharge medical care will return to primary care provider, Tevin SAUCEDO with [facility]. 01/15/18 Renal status/blood pressure stable - seeing increase urine output with Bumex drip. Repeat CXR with little change - ? underlying pneumonia. With continued leukocytosis will add azithromycin 500mg IV daily to currently scheduled daily ceftriaxone. Needing O2 at 6L - uses bipap intermittently. Renal sonogram showing no hydronephrosis. Blood sugars stable. Place PICC line secondary to poor IV access. Recheck BMP in am secondary to BINU and medications use. Will recheck CBC in am due to leukocytosis. Will continue with CCU care for close monitoring of cardiopulmonary status. 01/16/18 Will obtain Doppler tests lower ext due to pain and swelling to R/O DVT. Recheck BMP to monitor renal status as seeing increase to 3.6 this am. Urine output increased. Continue ceftriaxone and azithromycin for pulmonary coverage of potential pneumonia. O2 needs decreasing - wean O2 as able, BiPAP at night and during day as needed. 01/17/18 Continue nocturnal and prn BiPAP. Blood cx drawn for last night's fever. Check CXR. Continue ceftriaxone and azithromycin. WBC up slightly. Monitor. SCr continues at 3.6. Will DC Bumex drip and schedule 2 mg iv tid. Continue to monitor SCr. Add lactulose dose and trial of enemas. Doppler of BLE negative for DVT. 01/18/18 Continue nocturnal and prn BiPAP. Blood cx drawn for Friday night's fever show no growth. CXR shows improvement. Continue ceftriaxone and azithromycin. WBC up slightly. Monitor. SCr at 3.5. BUN trending up at 87. Bumex 2 mg iv tid. I/O 2333/2671. Continue to monitor. Bowels moved after lactulose and enema. Increase [place] to 7.5 for pain. BP better today. 01/19/18 Will continue ceftriaxone for pulmonary coverage - can stop azithromycin as course completed. Wean O2 as able. CPAP with O2 at night. Encourage deep breathing/IS for lung exercises. PT/OT to help functional status. Encourage increased activities - up to chair/ ambulate. Bumex 2 mg iv tid. Creatinine and potassium stable. Add PhosLo TID as phosphorus elevated secondary to CKD. Bowels moved after lactulose and enema. C diff negative. Can transfer patient to medical floor for continuation of care. 01/20/18 Continue ceftriaxone for pulmonary coverage. Continue O2 and BiPAP. Encourage breathing activities. PT/OT to help functional status. Encourage increased activities - up to chair/ ambulate. Bumex 2 mg iv tid. Creatinine and potassium stable. Increase atenolol to 50mg BID. Will add prn simethicone to help decrease abdominal cramping and bloating.
[2018-01-20] MEDS: ACETAMINOPHEN 325 MG TABLET PO PRN (16:09)
[2018-01-20] MEDS: ATENOLOL 50 MG TABLET PO SCH (20:51)
[2018-01-20] MEDS: APAP/DIPHENHYDRAMINE 500 MG/25 MG TABLET PO SCH (20:51)
[2018-01-21] MEDS: SALINE FLUSH 10ml SYRINGE IVF PRN ×2 (05:49→20:50)
[2018-01-21] MEDS: ENOXAPARIN 30 MG/0.3 ML INJECTION SQ SCH ×2 (09:02→21:11)
[2018-01-21] MEDS: CEFTRIAXONE 1 G in NS 100 ML IV SCH (09:02)
[2018-01-21] MEDS: POLYETHYL GLYCOL 3350 17gm PACKET PO SCH (09:27)
[2018-01-21] MEDS: ASPIRIN *EC* 81 MG TABLET PO SCH ×2 (09:28→20:51)
[2018-01-21] MEDS: ATENOLOL 50 MG TABLET PO SCH ×2 (09:29→20:51)
[2018-01-21] MEDS: LINACLOTIDE 145 MCG CAPSULE PO SCH (09:30)
[2018-01-21] MEDS: AMLODIPINE 10 MG TABLET PO SCH (09:30)
[2018-01-21] MEDS: CALCIUM ACETATE 667 MG CAPSULE PO SCH ×3 (12:44→18:19)
--- NOTE | 2018-01-21 14:02 | Progress Note ---
- Date 01/21/18 Subjective: Sully is seen today in follow up, she is up in the chair with daughter at her side. It required a full lift to get pt moved to the chair today. She continues to be on 7 liters of oxygen to maintain saturations. She denies having chest pain or shortness of breath. She reports some intermittent pain to knees and legs which has been chronic. Objective Vital signs: Temperature 97.7 F 01/21/18 11:11 Pulse Rate 76 01/21/18 11:11 Respiratory Rate 16 01/21/18 11:11 Blood Pressure 120/63 01/21/18 11:11 Pulse Oximetry 91 01/21/18 11:11 Height/Weight/BMI: Height 1.7 m Weight 173.5 kg Body Mass Index 60.2 - Constitutional Present: no acute distress, well nourished, well developed - Routine HEENT Exam Eye: Present: EOMI ENT: Present: mucous membranes moist, dentition normal - Routine Respiratory Exam Present: diminished air movement - Routine Cardiovascular Exam Present: RRR, S1, S2. Absent: murmur - Routine Abdominal Exam Present: soft, normoactive bowel sounds, non distended. Absent: tenderness - Routine Extremities Exam Present: edema (trace BLE) - Routine Skin Exam Present: intact, dry, warm - Routine Neurological Exam Present: alert, oriented X3, CN II-XII intact - Routine Lymphatic Exam Lymphatic: Absent: adenopathy - Routine Psychiatric Exam Present: cooperative, depressed Results - Labs CBC & Chem 7: 01/21/18 03:50 01/21/18 03:50 Microbiology Results: Microbiology 01/16/18 22:17 Midline Blood Culture - Preliminary No Growth After 4 Days 01/16/18 22:15 Midline Blood Culture - Preliminary No Growth After 4 Days Assessment and Plan (1) Acute respiratory failure Current visit: Yes Status: Acute Assessment and Plan: Impression Acute respiratory failure with hypoxia - Baseline on room air - currently requiring Bipap Acute pulmonary edema Suspect pneumonia Acute kidney injury on top of chronic kidney disease Stage 4 CKD Hyperkalemia (POA) - resolved Leukocytosis (POA) resolved Hyperphosphatemia secondary to CKD Hypertension Type II DM Hypercholesterolemia Diastolic heart failure - chronic Obstructive of sleep apnea with obesity hypoventilation syndrome - home BiPAP with O2 at night Chronic back pain Morbid obesity - BMI 62 Plan Lengthy discussion about goals to get home. These include weaning down oxygen as she usually does not use daytime oxygen She requests to be off narcotics as this causes fatigue. We will resume home in regimen including Tylenol 1000 milligrams in the morning , 1000 milligrams afternoon, and Tylenol PM at that time. Will leave tramadol for severe breakthrough pain as needed. Otherwise, discontinue IV morphine and Orange. Continue ceftriaxone for pulmonary coverage. Continue O2 and BiPAP. Encourage breathing activities. Bumex 2 mg TID for diuresis. Weight is down overall from admission Continue to work with PT/OT for strengthening. She would like to go home with . We discussed concern for weakness and inability to transfer safely. She acknowledges that SNU may be necessary at time of discharge. Daily labs to follow electrolytes, renal function DVT Prophylaxis: SCD's, Lovenox Resuscitation Status: Do Not Resuscitate - Time spent with patient Time with patient PN: 25 minutes - Physician Narrative Physician: Shravan Garcia MD Narrative: Date: 01/21/18 Time: 1615 Have independently interviewed and examined pt. Chart reviewed. Case discussed with CM and my [employer]. Care plan developed with my supervision; agree with above. Little change. Breathing feels slightly better - still needing O2 at rest (none at home during the day). Little cough/congestion. Trying to do more with therapy , efforts very taxing. Oral drive decreased. Lungs: decreased, no distress CV: regular AB: soft obese nt/nd MSE: sleepy, but awakens readily. Alert and oriented. Plan: Stress importance of working with therapy and moving more to be able to assist with transfers. Will recheck CXR tomorrow to reassess pulmonary edema. Will decrease Bumex to BID dosing-not seeing significant change in urine output with this medication and BUN climbing. Encourage deep breathing activities. Monitor lab. Hospital Course Summary Disclaimer: The visit summary below is not to be considered part of the above Progress Note. Hospital Course: 01/14/18 Inpatient Admission to CCU Admit patient to inpatient status under care of Dr. Garcia for acute respiratory failure with hypoxia and pulmonary edema. Continue on BiPAP given respiratory distress. Patient is chronically on Lasix 40 milligrams daily. She was given 20 milligrams IV 1 in the emergency room. She also takes hydrochlorothiazide 50 milligrams daily. Will need to use caution with diuresing given acute renal injury. Will obtain a renal sonogram given acute kidney injury. Other etiology of hypoxia could be pulmonary emboli, however, given renal function, we are unable to give patient IV contrast at this time. Will cover with Lovenox 30 milligrams twice a day for prophylaxis. He recommendations as per pharmacy report. BMI greater than 40 prophylaxis dosing is recommended 30 BID rather than 40 mg daily. Due to known history of congestive heart failure. Will obtain echocardiogram for further cardiac evaluation. TSH, magnesium for laboratory completeness. Monitor Accu-Cheks routinely and obtain a hemoglobin A1c. At time of discharge medical care will return to primary care provider, Tevin SAUCEDO with [facility]. 01/15/18 Renal status/blood pressure stable - seeing increase urine output with Bumex drip. Repeat CXR with little change - ? underlying pneumonia. With continued leukocytosis will add azithromycin 500mg IV daily to currently scheduled daily ceftriaxone. Needing O2 at 6L - uses bipap intermittently. Renal sonogram showing no hydronephrosis. Blood sugars stable. Place PICC line secondary to poor IV access. Recheck BMP in am secondary to BINU and medications use. Will recheck CBC in am due to leukocytosis. Will continue with CCU care for close monitoring of cardiopulmonary status. 01/16/18 Will obtain Doppler tests lower ext due to pain and swelling to R/O DVT. Recheck BMP to monitor renal status as seeing increase to 3.6 this am. Urine output increased. Continue ceftriaxone and azithromycin for pulmonary coverage of potential pneumonia. O2 needs decreasing - wean O2 as able, BiPAP at night and during day as needed. 01/17/18 Continue nocturnal and prn BiPAP. Blood cx drawn for last night's fever. Check CXR. Continue ceftriaxone and azithromycin. WBC up slightly. Monitor. SCr continues at 3.6. Will DC Bumex drip and schedule 2 mg iv tid. Continue to monitor SCr. Add lactulose dose and trial of enemas. Doppler of BLE negative for DVT. 01/18/18 Continue nocturnal and prn BiPAP. Blood cx drawn for Friday night's fever show no growth. CXR shows improvement. Continue ceftriaxone and azithromycin. WBC up slightly. Monitor. SCr at 3.5. BUN trending up at 87. Bumex 2 mg iv tid. I/O 2333/2671. Continue to monitor. Bowels moved after lactulose and enema. Increase Orange to 7.5 for pain. BP better today. 01/19/18 Will continue ceftriaxone for pulmonary coverage - can stop azithromycin as course completed. Wean O2 as able. CPAP with O2 at night. Encourage deep breathing/IS for lung exercises. PT/OT to help functional status. Encourage increased activities - up to chair/ ambulate. Bumex 2 mg iv tid. Creatinine and potassium stable. Add PhosLo TID as phosphorus elevated secondary to CKD. Bowels moved after lactulose and enema. C diff negative. Can transfer patient to medical floor for continuation of care. 01/20/18 Continue ceftriaxone for pulmonary coverage. Continue O2 and BiPAP. Encourage breathing activities. PT/OT to help functional status. Encourage increased activities - up to chair/ ambulate. Bumex 2 mg iv tid. Creatinine and potassium stable. Increase atenolol to 50mg BID. Will add prn simethicone to help decrease abdominal cramping and bloating. 01/21 Lengthy discussion about goals to get home. These include weaning down oxygen as she usually does not use daytime oxygen She requests to be off narcotics as this causes fatigue. We will resume home in regimen including Tylenol 1000 milligrams in the morning , 1000 milligrams afternoon, and Tylenol PM at that time. Will leave tramadol for severe breakthrough pain as needed. Otherwise, discontinue IV morphine and Orange. Continue ceftriaxone for pulmonary coverage. Continue O2 and BiPAP. Encourage breathing activities. Bumex 2 mg TID for diuresis. Weight is down overall from admission Continue to work with PT/OT for strengthening. She would like to go home with . We discussed concern for weakness and inability to transfer safely. She acknowledges that SNU may be necessary at time of discharge. Daily labs to follow electrolytes, renal function
[2018-01-21] MEDS: ACETAMINOPHEN 500 MG TABLET PO SCH (15:46)
[2018-01-21] MEDS: APAP/DIPHENHYDRAMINE 500 MG/25 MG TABLET PO SCH (20:50)
[2018-01-22] MEDS ORDERED: MELATONIN 1 MG TABLET PO ONE (02:23)
[2018-01-22] MEDS: ACETAMINOPHEN 500 MG TABLET PO SCH ×2 (06:01→14:04)
[2018-01-22] MEDS: ASPIRIN *EC* 81 MG TABLET PO SCH ×2 (08:48→21:58)
[2018-01-22] MEDS: ATENOLOL 50 MG TABLET PO SCH ×2 (08:48→21:58)
[2018-01-22] MEDS: LINACLOTIDE 145 MCG CAPSULE PO SCH (08:49)
[2018-01-22] MEDS: AMLODIPINE 10 MG TABLET PO SCH (08:49)
[2018-01-22] MEDS: CALCIUM ACETATE 667 MG CAPSULE PO SCH ×3 (08:49→17:36)
[2018-01-22] MEDS: ENOXAPARIN 30 MG/0.3 ML INJECTION SQ SCH (08:50)
[2018-01-22] MEDS: POLYETHYL GLYCOL 3350 17gm PACKET PO SCH (08:50)
[2018-01-22] MEDS: CEFTRIAXONE 1 G in NS 100 ML IV SCH (08:57)
--- NOTE | 2018-01-22 12:02 | Progress Note ---
- Date 01/22/18 Subjective: Sully isn't feeling well today. She had hallucinations last night again, despite narcotics being dc'd. She states that her breathing is the same, except now is complicated by nosebleeds. She had increased coughing last night but seems better this am. She is also hurting from being in the chair for 4 hours straight (after discussing with nurse, however, she's only been in the chair for 2 hours) and she wants to get back into bed for lunch. She had a BM last night after Dr. Garcia ordered Linzess. She denies abdominal pain or nausea. Her fingers are sore from checking BGM so often. She never checks her blood sugars at home and asks to dc accuchecks. Objective Vital signs: Temperature 96.2 F L 01/22/18 07:55 Pulse Rate 63 01/22/18 07:55 Respiratory Rate 21 01/22/18 07:55 Blood Pressure 143/80 H 01/22/18 07:55 Pulse Oximetry 94 01/22/18 07:55 Rhythm: Normal Sinus Rhythm Height/Weight/BMI: Height 1.7 m Weight 172 kg Body Mass Index 60.2 - Constitutional Present: well nourished, well developed, morbidly obese - Routine HEENT Exam Head: Present: normocephalic Eye: Present: PERRL. Absent: conjunctival icterus, scleral injection Comments: dried blood to nares - Routine Respiratory Exam Present: decreased breath sounds - Routine Cardiovascular Exam Present: RRR, S1, S2 - Routine Abdominal Exam Present: soft, normoactive bowel sounds - Routine Extremities Exam Present: edema (trace BLE) - Routine Skin Exam Present: intact, dry, warm - Routine Neurological Exam Present: alert, oriented X3 - Routine Psychiatric Exam Present: normal affect, normal thought process, cooperative Results - Labs CBC & Chem 7: 01/22/18 04:11 01/22/18 04:11 Microbiology Results: Microbiology 01/16/18 22:17 Midline Blood Culture - Final No Growth After 5 Days 01/16/18 22:15 Midline Blood Culture - Final No Growth After 5 Days Assessment and Plan (1) Acute respiratory failure Current visit: Yes Status: Acute Assessment and Plan: Impression Acute respiratory failure with hypoxia - Baseline on room air - currently requiring Bipap Acute pulmonary edema Suspect pneumonia Acute kidney injury on top of chronic kidney disease Stage 4 CKD Hyperkalemia (POA) - resolved Leukocytosis (POA) resolved Hyperphosphatemia secondary to CKD Hypertension Type II DM Hypercholesterolemia Diastolic heart failure - chronic Obstructive of sleep apnea with obesity hypoventilation syndrome - home BiPAP with O2 at night Chronic back pain Morbid obesity - BMI 62 Plan Slight increase in BUN/Creatinine (114/3.3). Had been on Bumex TID and today starts BID dosing. Remains on 7L of oxygen. CXR on my review looks better - radiology report pending. DC Rocephin: 8 day course completed. DC scheduled Accuchecks per pt request. Offered nasal saline for epistaxis - pt declined. Continue therapy. D/W Dr. Garcia. DVT Prophylaxis: Lovenox Resuscitation Status: Do Not Resuscitate - Time spent with patient Time with patient PN: 25 minutes - Physician Narrative Physician: Shravan Garcia MD Narrative: Date: 01/22/18 Time: 1620 Have independently interviewed and examined pt. Chart reviewed. Case discussed with CM and my [employer]. Care plan developed with my supervision; agree with above. Rough night-hallucinations. Did feel more SOA and anxious during the episode. Worked much more with therapy-moved legs on her own and able to dangle legs of side of bed. Up in chair longer. Trying to working harder with therapy. No nausea, but appetite decreased. Stools moving. Breathing the same. Lungs: decreased, no distress CV: regular AB: soft obese BS decreased EXT: + 3 edema MSE: awake alert Plan: Congratulated pt on her hard work with therapy-this is very encouraging. Encourage slow, deep breathing to help with anxiety. Encourage continued adherence with CPAP. Checking into possible IRU to help strengthen her to the point of being able to return home. Bumex decreased. Can stop ceftriaxone. Monitor lab. Hospital Course Summary Disclaimer: The visit summary below is not to be considered part of the above Progress Note. Hospital Course: 01/14/18 Inpatient Admission to CCU Admit patient to inpatient status under care of Dr. Garcia for acute respiratory failure with hypoxia and pulmonary edema. Continue on BiPAP given respiratory distress. Patient is chronically on Lasix 40 milligrams daily. She was given 20 milligrams IV 1 in the emergency room. She also takes hydrochlorothiazide 50 milligrams daily. Will need to use caution with diuresing given acute renal injury. Will obtain a renal sonogram given acute kidney injury. Other etiology of hypoxia could be pulmonary emboli, however, given renal function, we are unable to give patient IV contrast at this time. Will cover with Lovenox 30 milligrams twice a day for prophylaxis. He recommendations as per pharmacy report. BMI greater than 40 prophylaxis dosing is recommended 30 BID rather than 40 mg daily. Due to known history of congestive heart failure. Will obtain echocardiogram for further cardiac evaluation. TSH, magnesium for laboratory completeness. Monitor Accu-Cheks routinely and obtain a hemoglobin A1c. At time of discharge medical care will return to primary care provider, Tevin SAUCEDO with [facility]. 01/15/18 Renal status/blood pressure stable - seeing increase urine output with Bumex drip. Repeat CXR with little change - ? underlying pneumonia. With continued leukocytosis will add azithromycin 500mg IV daily to currently scheduled daily ceftriaxone. Needing O2 at 6L - uses bipap intermittently. Renal sonogram showing no hydronephrosis. Blood sugars stable. Place PICC line secondary to poor IV access. Recheck BMP in am secondary to BINU and medications use. Will recheck CBC in am due to leukocytosis. Will continue with CCU care for close monitoring of cardiopulmonary status. 01/16/18 Will obtain Doppler tests lower ext due to pain and swelling to R/O DVT. Recheck BMP to monitor renal status as seeing increase to 3.6 this am. Urine output increased. Continue ceftriaxone and azithromycin for pulmonary coverage of potential pneumonia. O2 needs decreasing - wean O2 as able, BiPAP at night and during day as needed. 01/17/18 Continue nocturnal and prn BiPAP. Blood cx drawn for last night's fever. Check CXR. Continue ceftriaxone and azithromycin. WBC up slightly. Monitor. SCr continues at 3.6. Will DC Bumex drip and schedule 2 mg iv tid. Continue to monitor SCr. Add lactulose dose and trial of enemas. Doppler of BLE negative for DVT. 01/18/18 Continue nocturnal and prn BiPAP. Blood cx drawn for Friday night's fever show no growth. CXR shows improvement. Continue ceftriaxone and azithromycin. WBC up slightly. Monitor. SCr at 3.5. BUN trending up at 87. Bumex 2 mg iv tid. I/O 2333/2671. Continue to monitor. Bowels moved after lactulose and enema. Increase [place] to 7.5 for pain. BP better today. 01/19/18 Will continue ceftriaxone for pulmonary coverage - can stop azithromycin as course completed. Wean O2 as able. CPAP with O2 at night. Encourage deep breathing/IS for lung exercises. PT/OT to help functional status. Encourage increased activities - up to chair/ ambulate. Bumex 2 mg iv tid. Creatinine and potassium stable. Add PhosLo TID as phosphorus elevated secondary to CKD. Bowels moved after lactulose and enema. C diff negative. Can transfer patient to medical floor for continuation of care. 01/20/18 Continue ceftriaxone for pulmonary coverage. Continue O2 and BiPAP. Encourage breathing activities. PT/OT to help functional status. Encourage increased activities - up to chair/ ambulate. Bumex 2 mg iv tid. Creatinine and potassium stable. Increase atenolol to 50mg BID. Will add prn simethicone to help decrease abdominal cramping and bloating. 01/21 Lengthy discussion about goals to get home. These include weaning down oxygen as she usually does not use daytime oxygen She requests to be off narcotics as this causes fatigue. We will resume home in regimen including Tylenol 1000 milligrams in the morning , 1000 milligrams afternoon, and Tylenol PM at that time. Will leave tramadol for severe breakthrough pain as needed. Otherwise, discontinue IV morphine and [place]. Continue ceftriaxone for pulmonary coverage. Continue O2 and BiPAP. Encourage breathing activities. Bumex 2 mg TID for diuresis. Weight is down overall from admission Continue to work with PT/OT for strengthening. She would like to go home with . We discussed concern for weakness and inability to transfer safely. She acknowledges that SNU may be necessary at time of discharge. 01/22 Slight increase in BUN/Creatinine (114/3.3). Had been on Bumex TID and today starts BID dosing. Remains on 7L of oxygen. CXR on my review looks better - radiology report pending. JENNIFER Rocephin: 8 day course completed. DC scheduled Accuchecks per pt request. Blood sugars have been showing good control. Offered nasal saline for epistaxis - pt declined.
--- NOTE | 2018-01-22 12:04 | XRay Report ---
Indication: F/U pulmonary edema PROCEDURE: XR chest 1V: Encounter: Initial Comparison: 01/17/2018 Findings: The exam is slightly expiratory nature which may cause some prominence of interstitial markings. There does appear to be some cardiomegaly, pulmonary mass or congestion, and interstitial palmar edema without definite pleural effusion. Trachea is midline. No subdiaphragmatic free air. No significant tortuosity of the descending thoracic aorta. There is moderate degenerative disc disease of the thoracic spine. Impression: Mild CHF. .
[2018-01-22] MEDS: APAP/DIPHENHYDRAMINE 500 MG/25 MG TABLET PO SCH (21:57)
[2018-01-22] MEDS: SALINE FLUSH 10ml SYRINGE IVF PRN (22:02)
[2018-01-23] MEDS: TRAMADOL 50 MG TABLET PO PRN (01:39)
[2018-01-23] MEDS: SALINE FLUSH 10ml SYRINGE IVF PRN (04:28)
[2018-01-23] MEDS: ACETAMINOPHEN 500 MG TABLET PO SCH ×2 (06:36→14:10)
[2018-01-23] MEDS ORDERED: ENOXAPARIN 30 MG/0.3 ML INJECTION SQ SCH (09:00)
--- NOTE | 2018-01-23 09:51 | Progress Note ---
- Date 01/23/18 Subjective: Sully was sitting up in her chair eating breakfast. She had a good night and feels pretty good this am. She states that her breathing is stable. She's surprised at how long it's taking her to recover, but she saw improvements yesterday while working with therapy. She denies abdominal pain or n/v, and her constipation has improved. Her pain is under decent control, rating it as 4/10. She did not have any hallucinations last night. Objective Vital signs: Temperature 96.8 F 01/23/18 07:39 Pulse Rate 67 01/23/18 07:39 Respiratory Rate 22 01/23/18 07:39 Blood Pressure 128/57 01/23/18 07:39 Pulse Oximetry 92 01/23/18 07:39 Rhythm: Normal Sinus Rhythm Height/Weight/BMI: Height 1.7 m Weight 172.2 kg Body Mass Index 60.2 - Constitutional Present: no acute distress, well nourished, well developed, morbidly obese - Routine HEENT Exam Head: Present: normocephalic Eye: Present: PERRL. Absent: conjunctival icterus, scleral injection - Routine Respiratory Exam Present: decreased breath sounds - Routine Cardiovascular Exam Present: RRR, S1, S2 - Routine Abdominal Exam Present: soft, normoactive bowel sounds - Routine Extremities Exam Present: edema (trace BLE) - Routine Skin Exam Present: intact, dry, ecchymosis (B/L arms) - Routine Neurological Exam Present: alert, oriented X3, vision grossly intact, hearing grossly intact, normal speech - Routine Psychiatric Exam Present: normal affect, normal thought process, cooperative Results - Labs CBC & Chem 7: 01/22/18 04:11 01/23/18 04:31 Microbiology Results: Microbiology 01/16/18 22:17 Midline Blood Culture - Final No Growth After 5 Days 01/16/18 22:15 Midline Blood Culture - Final No Growth After 5 Days Assessment and Plan (1) Acute respiratory failure Current visit: Yes Status: Acute Assessment and Plan: Impression Acute respiratory failure with hypoxia - Baseline on room air - currently requiring Bipap Acute pulmonary edema Suspect pneumonia Acute kidney injury on top of chronic kidney disease Stage 4 CKD Hyperkalemia (POA) - resolved Leukocytosis (POA) resolved Hyperphosphatemia secondary to CKD Hypertension Type II DM Hypercholesterolemia Diastolic heart failure - chronic Obstructive of sleep apnea with obesity hypoventilation syndrome - home BiPAP with O2 at night Chronic back pain Morbid obesity - BMI 62 Plan Slight increase in BUN though Creatinine is stable (129/3.3). DC IV Bumex and start Lasix 40 mg BID. Jeffers - start bladder retraining now that IV diuretics are stopped. Remains on 7L of oxygen. Encourage therapy. Wean as able. D/W Dr. Garcia. DVT Prophylaxis: Lovenox Resuscitation Status: Do Not Resuscitate - Time spent with patient Time with patient PN: 25 minutes - Physician Narrative Physician: Shravan Garcia MD Narrative: Date: 01/23/18 Time: 1441 Have independently interviewed and examined pt. Chart reviewed. Case discussed with CM and my [employer] SPECIALIST. Care plan developed with my supervision; agree with above. Doing okay. Breathing the same. Did have difficulty wearing CPAP last night due to anxiety and mask feeling tight. Appetite will little improvement. Bowels moving. Working with therapy. Lungs: decreased breath sounds, little air movement. NO distress CV: distant MSE: awake alert Gen: does look more energetic this afternoon. Less sleepy. Plan: Change Bumex to Lasix BID. Bladder retraining with jeffers - hope to remove soon as decreasing diuretics. Monitor lab. Hospital Course Summary Disclaimer: The visit summary below is not to be considered part of the above Progress Note. Hospital Course: 01/14/18 Inpatient Admission to CCU Admit patient to inpatient status under care of Dr. Garcia for acute respiratory failure with hypoxia and pulmonary edema. Continue on BiPAP given respiratory distress. Patient is chronically on Lasix 40 milligrams daily. She was given 20 milligrams IV 1 in the emergency room. She also takes hydrochlorothiazide 50 milligrams daily. Will need to use caution with diuresing given acute renal injury. Will obtain a renal sonogram given acute kidney injury. Other etiology of hypoxia could be pulmonary emboli, however, given renal function, we are unable to give patient IV contrast at this time. Will cover with Lovenox 30 milligrams twice a day for prophylaxis. He recommendations as per pharmacy report. BMI greater than 40 prophylaxis dosing is recommended 30 BID rather than 40 mg daily. Due to known history of congestive heart failure. Will obtain echocardiogram for further cardiac evaluation. TSH, magnesium for laboratory completeness. Monitor Accu-Cheks routinely and obtain a hemoglobin A1c. At time of discharge medical care will return to primary care provider, Tevin SAUCEDO with [facility]. 01/15/18 Renal status/blood pressure stable - seeing increase urine output with Bumex drip. Repeat CXR with little change - ? underlying pneumonia. With continued leukocytosis will add azithromycin 500mg IV daily to currently scheduled daily ceftriaxone. Needing O2 at 6L - uses bipap intermittently. Renal sonogram showing no hydronephrosis. Blood sugars stable. Place PICC line secondary to poor IV access. Recheck BMP in am secondary to BINU and medications use. Will recheck CBC in am due to leukocytosis. Will continue with CCU care for close monitoring of cardiopulmonary status. 01/16/18 Will obtain Doppler tests lower ext due to pain and swelling to R/O DVT. Recheck BMP to monitor renal status as seeing increase to 3.6 this am. Urine output increased. Continue ceftriaxone and azithromycin for pulmonary coverage of potential pneumonia. O2 needs decreasing - wean O2 as able, BiPAP at night and during day as needed. 01/17/18 Continue nocturnal and prn BiPAP. Blood cx drawn for last night's fever. Check CXR. Continue ceftriaxone and azithromycin. WBC up slightly. Monitor. SCr continues at 3.6. Will DC Bumex drip and schedule 2 mg iv tid. Continue to monitor SCr. Add lactulose dose and trial of enemas. Doppler of BLE negative for DVT. 01/18/18 Continue nocturnal and prn BiPAP. Blood cx drawn for Friday night's fever show no growth. CXR shows improvement. Continue ceftriaxone and azithromycin. WBC up slightly. Monitor. SCr at 3.5. BUN trending up at 87. Bumex 2 mg iv tid. I/O 2333/2671. Continue to monitor. Bowels moved after lactulose and enema. Increase [place] to 7.5 for pain. BP better today. 01/19/18 Will continue ceftriaxone for pulmonary coverage - can stop azithromycin as course completed. Wean O2 as able. CPAP with O2 at night. Encourage deep breathing/IS for lung exercises. PT/OT to help functional status. Encourage increased activities - up to chair/ ambulate. Bumex 2 mg iv tid. Creatinine and potassium stable. Add PhosLo TID as phosphorus elevated secondary to CKD. Bowels moved after lactulose and enema. C diff negative. Can transfer patient to medical floor for continuation of care. 01/20/18 Continue ceftriaxone for pulmonary coverage. Continue O2 and BiPAP. Encourage breathing activities. PT/OT to help functional status. Encourage increased activities - up to chair/ ambulate. Bumex 2 mg iv tid. Creatinine and potassium stable. Increase atenolol to 50mg BID. Will add prn simethicone to help decrease abdominal cramping and bloating. 01/21 Lengthy discussion about goals to get home. These include weaning down oxygen as she usually does not use daytime oxygen She requests to be off narcotics as this causes fatigue. We will resume home in regimen including Tylenol 1000 milligrams in the morning , 1000 milligrams afternoon, and Tylenol PM at that time. Will leave tramadol for severe breakthrough pain as needed. Otherwise, discontinue IV morphine and [place]. Continue ceftriaxone for pulmonary coverage. Continue O2 and BiPAP. Encourage breathing activities. Bumex 2 mg TID for diuresis. Weight is down overall from admission Continue to work with PT/OT for strengthening. She would like to go home with . We discussed concern for weakness and inability to transfer safely. She acknowledges that SNU may be necessary at time of discharge. 01/22 Slight increase in BUN/Creatinine (114/3.3). Had been on Bumex TID and today starts BID dosing. Remains on 7L of oxygen. CXR on my review looks better - radiology report pending. DC Rocephin: 8 day course completed. DC scheduled Accuchecks per pt request. Blood sugars have been showing good control. Offered nasal saline for epistaxis - pt declined. 01/23 Slight increase in BUN though Creatinine is stable (129/3.3). DC IV Bumex and start Lasix 40 mg BID. Jeffers - start bladder retraining now that IV diuretics are stopped. Remains on 7L of oxygen. Encourage therapy. Wean as able.
[2018-01-23] MEDS: ATENOLOL 50 MG TABLET PO SCH ×2 (10:40→21:47)
[2018-01-23] MEDS: POLYETHYL GLYCOL 3350 17gm PACKET PO SCH (10:41)
[2018-01-23] MEDS: ASPIRIN *EC* 81 MG TABLET PO SCH ×2 (10:41→21:47)
[2018-01-23] MEDS: CALCIUM ACETATE 667 MG CAPSULE PO SCH ×3 (10:41→18:59)
[2018-01-23] MEDS: AMLODIPINE 10 MG TABLET PO SCH (10:41)
[2018-01-23] MEDS: LINACLOTIDE 145 MCG CAPSULE PO SCH (10:42)
[2018-01-23] MEDS: ENOXAPARIN 40 MG/0.4 ML INJECTION SQ SCH (10:43)
[2018-01-23] MEDS: ONDANSETRON 4 MG/2 ML INJECTION IVP PRN (13:56)
[2018-01-23] MEDS: FUROSEMIDE 40 MG TABLET PO SCH (18:59)
[2018-01-23] MEDS: APAP/DIPHENHYDRAMINE 500 MG/25 MG TABLET PO SCH (21:46)
[2018-01-24] MEDS: ACETAMINOPHEN 500 MG TABLET PO SCH ×2 (06:48→13:14)
[2018-01-24] MEDS: SALINE FLUSH 10ml SYRINGE IVF PRN ×2 (06:51→20:48)
[2018-01-24] MEDS: LINACLOTIDE 145 MCG CAPSULE PO SCH (09:05)
[2018-01-24] MEDS: CALCIUM ACETATE 667 MG CAPSULE PO SCH ×3 (09:06→16:59)
[2018-01-24] MEDS: AMLODIPINE 10 MG TABLET PO SCH (09:06)
[2018-01-24] MEDS: POLYETHYL GLYCOL 3350 17gm PACKET PO SCH (09:07)
[2018-01-24] MEDS: ATENOLOL 50 MG TABLET PO SCH ×2 (09:07→20:48)
[2018-01-24] MEDS: ASPIRIN *EC* 81 MG TABLET PO SCH ×2 (09:07→20:48)
[2018-01-24] MEDS: FUROSEMIDE 40 MG TABLET PO SCH ×2 (09:07→16:59)
[2018-01-24] MEDS: ENOXAPARIN 40 MG/0.4 ML INJECTION SQ SCH (09:07)
--- NOTE | 2018-01-24 13:40 | Progress Note ---
- Date 01/24/18 Subjective: F/U: Acute respiratory failure with hypoxia, Acute pulmonary edema Doing okay this am. Able to have O2 decreased to 2L. Breathing feeling about the same-slight SOA, but little congestion/cough. No pain with breathing. Appetite poor, but eating. No nausea. Trying to build up strength. Objective Vital signs: Temperature 97.1 F 01/24/18 11:39 Pulse Rate 64 01/24/18 11:39 Respiratory Rate 18 01/24/18 11:39 Blood Pressure 146/60 H 01/24/18 11:39 Pulse Oximetry 94 01/24/18 13:11 Rhythm: Normal Sinus Rhythm Height/Weight/BMI: Height 1.7 m Weight 172.2 kg Body Mass Index 60.2 - Constitutional Present: well nourished, well developed, morbidly obese, cooperative - Routine HEENT Exam Head: Present: normocephalic, atraumatic Eye: Present: EOMI, PERRL ENT: Present: mucous membranes moist - Routine Respiratory Exam Present: decreased breath sounds. Absent: rales, respiratory distress, rhonchi , wheezes, crackles - Routine Cardiovascular Exam Present: RRR, no murmur - Routine Abdominal Exam Present: soft, normoactive bowel sounds, non distended, non tender. Absent: guarding - Routine Extremities Exam Present: edema (+3), pulses intact. Absent: cyanosis, clubbing - Routine Musculoskeletal Exam Musculoskeletal: Present: no clubbing or cyanosis - Routine Skin Exam Present: dry, warm - Routine Neurological Exam Present: alert, oriented X3, CN II-XII intact, vision grossly intact, hearing grossly intact, normal speech. Absent: motor deficit, altered mental status - Routine Psychiatric Exam Present: normal affect, normal thought process, cooperative Results - Labs CBC & Chem 7: 01/24/18 04:05 01/24/18 04:05 Microbiology Results: Microbiology 01/16/18 22:17 Midline Blood Culture - Final No Growth After 5 Days 01/16/18 22:15 Midline Blood Culture - Final No Growth After 5 Days Assessment and Plan (1) Acute respiratory failure Current visit: Yes Status: Acute Assessment and Plan: Impression Acute respiratory failure with hypoxia Acute pulmonary edema Suspect pneumonia - clinically improved Acute kidney injury on top of chronic kidney disease Stage 4 CKD Hyperkalemia (POA) - resolved Leukocytosis (POA) resolved Hyperphosphatemia secondary to CKD Hypertension Type II DM Hypercholesterolemia Diastolic heart failure - chronic Obstructive of sleep apnea with obesity hypoventilation syndrome - home BiPAP with O2 at night Chronic back pain Morbid obesity - BMI 62 Plan Continue Lasix 40mg BID. Encourage deep breathing activities. Nursing able to wean O2 to 2L. Encourage activities and movement to help build strength. Recheck BMP in am due to stage IV CKD and medication use. Will recheck CBC in am due to anemia. DVT Prophylaxis: SCD's, Lovenox Resuscitation Status: Do Not Resuscitate - Time spent with patient Time with patient PN: 25 minutes - Physician Narrative Physician: Shravan Garcia MD Narrative: Date: 01/24/18 Time: 1337 Hospital Course Summary Disclaimer: The visit summary below is not to be considered part of the above Progress Note. Hospital Course: 01/14/18 Inpatient Admission to CCU Admit patient to inpatient status under care of Dr. Garcia for acute respiratory failure with hypoxia and pulmonary edema. Continue on BiPAP given respiratory distress. Patient is chronically on Lasix 40 milligrams daily. She was given 20 milligrams IV 1 in the emergency room. She also takes hydrochlorothiazide 50 milligrams daily. Will need to use caution with diuresing given acute renal injury. Will obtain a renal sonogram given acute kidney injury. Other etiology of hypoxia could be pulmonary emboli, however, given renal function, we are unable to give patient IV contrast at this time. Will cover with Lovenox 30 milligrams twice a day for prophylaxis. He recommendations as per pharmacy report. BMI greater than 40 prophylaxis dosing is recommended 30 BID rather than 40 mg daily. Due to known history of congestive heart failure. Will obtain echocardiogram for further cardiac evaluation. TSH, magnesium for laboratory completeness. Monitor Accu-Cheks routinely and obtain a hemoglobin A1c. At time of discharge medical care will return to primary care provider, Tevin SAUCEDO with [facility]. 01/15/18 Renal status/blood pressure stable - seeing increase urine output with Bumex drip. Repeat CXR with little change - ? underlying pneumonia. With continued leukocytosis will add azithromycin 500mg IV daily to currently scheduled daily ceftriaxone. Needing O2 at 6L - uses bipap intermittently. Renal sonogram showing no hydronephrosis. Blood sugars stable. Place PICC line secondary to poor IV access. Recheck BMP in am secondary to BINU and medications use. Will recheck CBC in am due to leukocytosis. Will continue with CCU care for close monitoring of cardiopulmonary status. 01/16/18 Will obtain Doppler tests lower ext due to pain and swelling to R/O DVT. Recheck BMP to monitor renal status as seeing increase to 3.6 this am. Urine output increased. Continue ceftriaxone and azithromycin for pulmonary coverage of potential pneumonia. O2 needs decreasing - wean O2 as able, BiPAP at night and during day as needed. 01/17/18 Continue nocturnal and prn BiPAP. Blood cx drawn for last night's fever. Check CXR. Continue ceftriaxone and azithromycin. WBC up slightly. Monitor. SCr continues at 3.6. Will DC Bumex drip and schedule 2 mg iv tid. Continue to monitor SCr. Add lactulose dose and trial of enemas. Doppler of BLE negative for DVT. 01/18/18 Continue nocturnal and prn BiPAP. Blood cx drawn for Friday night's fever show no growth. CXR shows improvement. Continue ceftriaxone and azithromycin. WBC up slightly. Monitor. SCr at 3.5. BUN trending up at 87. Bumex 2 mg iv tid. I/O 2333/2671. Continue to monitor. Bowels moved after lactulose and enema. Increase [place] to 7.5 for pain. BP better today. 01/19/18 Will continue ceftriaxone for pulmonary coverage - can stop azithromycin as course completed. Wean O2 as able. CPAP with O2 at night. Encourage deep breathing/IS for lung exercises. PT/OT to help functional status. Encourage increased activities - up to chair/ ambulate. Bumex 2 mg iv tid. Creatinine and potassium stable. Add PhosLo TID as phosphorus elevated secondary to CKD. Bowels moved after lactulose and enema. C diff negative. Can transfer patient to medical floor for continuation of care. 01/20/18 Continue ceftriaxone for pulmonary coverage. Continue O2 and BiPAP. Encourage breathing activities. PT/OT to help functional status. Encourage increased activities - up to chair/ ambulate. Bumex 2 mg iv tid. Creatinine and potassium stable. Increase atenolol to 50mg BID. Will add prn simethicone to help decrease abdominal cramping and bloating. 01/21 Lengthy discussion about goals to get home. These include weaning down oxygen as she usually does not use daytime oxygen She requests to be off narcotics as this causes fatigue. We will resume home in regimen including Tylenol 1000 milligrams in the morning , 1000 milligrams afternoon, and Tylenol PM at that time. Will leave tramadol for severe breakthrough pain as needed. Otherwise, discontinue IV morphine and [place]. Continue ceftriaxone for pulmonary coverage. Continue O2 and BiPAP. Encourage breathing activities. Bumex 2 mg TID for diuresis. Weight is down overall from admission Continue to work with PT/OT for strengthening. She would like to go home with . We discussed concern for weakness and inability to transfer safely. She acknowledges that SNU may be necessary at time of discharge. 01/22 Slight increase in BUN/Creatinine (114/3.3). Had been on Bumex TID and today starts BID dosing. Remains on 7L of oxygen. CXR on my review looks better - radiology report pending. DC Rocephin: 8 day course completed. DC scheduled Accuchecks per pt request. Blood sugars have been showing good control. Offered nasal saline for epistaxis - pt declined. 01/23 Slight increase in BUN though Creatinine is stable (129/3.3). DC IV Bumex and start Lasix 40 mg BID. Velazquez - start bladder retraining now that IV diuretics are stopped. Remains on 7L of oxygen. Encourage therapy. Wean as able. 01/24 Continue Lasix 40mg BID. Encourage deep breathing activities. Nursing able to wean O2 to 2L. Encourage activities and movement to help build strength. Recheck BMP in am due to stage IV CKD and medication use. Will recheck CBC in am due to anemia.
[2018-01-24] MEDS: TRAMADOL 50 MG TABLET PO PRN (15:35)
[2018-01-24] MEDS ORDERED: FALL RISK - PHARMACY CONSULT MC ONE (18:05)
[2018-01-24] MEDS: APAP/DIPHENHYDRAMINE 500 MG/25 MG TABLET PO SCH (20:48)
[2018-01-25] MEDS: TRAMADOL 50 MG TABLET PO PRN (00:30)
[2018-01-25] MEDS: LINACLOTIDE 145 MCG CAPSULE PO SCH (07:02)
[2018-01-25] MEDS: ACETAMINOPHEN 500 MG TABLET PO SCH ×2 (07:04→14:35)
[2018-01-25] MEDS: AMLODIPINE 10 MG TABLET PO SCH (08:58)
[2018-01-25] MEDS: CALCIUM ACETATE 667 MG CAPSULE PO SCH ×3 (08:58→17:44)
[2018-01-25] MEDS: ATENOLOL 50 MG TABLET PO SCH ×2 (09:02→20:53)
[2018-01-25] MEDS: ENOXAPARIN 40 MG/0.4 ML INJECTION SQ SCH (09:02)
[2018-01-25] MEDS: POLYETHYL GLYCOL 3350 17gm PACKET PO SCH (09:03)
[2018-01-25] MEDS: FUROSEMIDE 40 MG TABLET PO SCH (09:03)
--- NOTE | 2018-01-25 11:06 | Progress Note ---
- Date 01/25/18 Subjective: Sully is seen today in follow up. Nursing reported pt. c/o bladder spasms- she has been undergoing bladder training. Will DC her Velazquez. Requested UA. Pt. reports she is breathing better. She is concerned with instructions that she needs to walk more. She is quite debilitated at home- she walks "20 feet" twice per day. Her helps her pivot and transfer from lift chair to commode when needed. Reports using [id number] lift here. We discussed slow increase in ambulation and reasonable goals would be increasing activity to return her to home level of function if possible. Objective Vital signs: Temperature 97.5 F 01/25/18 07:26 Pulse Rate 64 01/25/18 07:26 Respiratory Rate 20 01/25/18 07:26 Blood Pressure 139/62 01/25/18 07:26 Pulse Oximetry 91 01/25/18 07:26 Rhythm: Normal Sinus Rhythm Height/Weight/BMI: Height 1.7 m Weight 171.1 kg Body Mass Index 60.2 - Constitutional Present: no acute distress, morbidly obese, cooperative - Routine HEENT Exam Head: Present: normocephalic, atraumatic Eye: Present: EOMI, PERRL - Routine Respiratory Exam Present: decreased breath sounds, CTA bilaterally. Absent: rales, rhonchi, crackles - Routine Cardiovascular Exam Present: RRR, S1, S2, no murmur - Routine Abdominal Exam Present: soft, normoactive bowel sounds, non distended, non tender - Routine Extremities Exam Present: non tender. Absent: no edema - Routine Musculoskeletal Exam Musculoskeletal: Present: limited range of motion - Routine Skin Exam Present: intact, dry, warm - Routine Neurological Exam Present: alert, moving all extremities - Routine Psychiatric Exam Present: normal affect, cooperative Results - Labs CBC & Chem 7: 01/24/18 04:05 01/25/18 11:05 Microbiology Results: Microbiology 01/16/18 22:17 Midline Blood Culture - Final No Growth After 5 Days 01/16/18 22:15 Midline Blood Culture - Final No Growth After 5 Days Assessment and Plan (1) Acute respiratory failure Current visit: Yes Status: Acute Assessment and Plan: Impression Acute respiratory failure with hypoxia Acute pulmonary edema Suspect pneumonia - clinically improved Acute kidney injury on top of chronic kidney disease Stage 4 CKD Hyperkalemia (POA) - resolved Leukocytosis (POA) resolved Hyperphosphatemia secondary to CKD Hypertension Type II DM Hypercholesterolemia Diastolic heart failure - chronic Obstructive of sleep apnea with obesity hypoventilation syndrome - home BiPAP with O2 at night Chronic back pain Morbid obesity - BMI 62 Plan Patient appears to be intravascularly dry- BUN, Serum osmo quite high. Hold Lasix for today. Acute pulmonary edema resolved. Continue Home BiPAP and O2 for supportive care. Continue to hold Atenolol for now. Baseline SCr around 2.0-2.4- Consider limited gentle IV fluids? Will order PT to help with increasing activity. Very limited due to severe obesity. Velazquez out- check UA for possible infection. BG normal. Continue to monitor. May benefit from HH upon dismissal. DVT Prophylaxis: Lovenox Resuscitation Status: Do Not Resuscitate - Time spent with patient Time with patient PN: 25 minutes - Physician Narrative Physician: Shravan Garcia MD Narrative: Date: 01/25/18 Time: 1720 Have independently interviewed and examined pt. Chart reviewed. Case discussed with my SENIOR BIOINFORMATICS SPECIALIST. Care plan developed with my supervision; agree with above. Doing fair. Legs weak-very hard to get up to side of bed, transfer to chair. Breathing stable-not congested or SOA. No cough/sputum. Appetite decreased. Not had stool today. Velazquez removed (was having bladder spasm). Slight discomfort as she urinates. Lungs: decreased CV: regular AB: soft nt/nd MSE: awake alert Plan: Lasix decreased to 40mg daily-home dose. Velazquez removed. Encourage continued activities for strengthening. Will recheck CXR in am. Likely IRU vs skilled in near future. Hospital Course Summary Disclaimer: The visit summary below is not to be considered part of the above Progress Note. Hospital Course: 01/14/18 Inpatient Admission to CCU Admit patient to inpatient status under care of Dr. Garcia for acute respiratory failure with hypoxia and pulmonary edema. Continue on BiPAP given respiratory distress. Patient is chronically on Lasix 40 milligrams daily. She was given 20 milligrams IV 1 in the emergency room. She also takes hydrochlorothiazide 50 milligrams daily. Will need to use caution with diuresing given acute renal injury. Will obtain a renal sonogram given acute kidney injury. Other etiology of hypoxia could be pulmonary emboli, however, given renal function, we are unable to give patient IV contrast at this time. Will cover with Lovenox 30 milligrams twice a day for prophylaxis. He recommendations as per pharmacy report. BMI greater than 40 prophylaxis dosing is recommended 30 BID rather than 40 mg daily. Due to known history of congestive heart failure. Will obtain echocardiogram for further cardiac evaluation. TSH, magnesium for laboratory completeness. Monitor Accu-Cheks routinely and obtain a hemoglobin A1c. At time of discharge medical care will return to primary care provider, Tevin SAUCEDO with [facility]. 01/15/18 Renal status/blood pressure stable - seeing increase urine output with Bumex drip. Repeat CXR with little change - ? underlying pneumonia. With continued leukocytosis will add azithromycin 500mg IV daily to currently scheduled daily ceftriaxone. Needing O2 at 6L - uses bipap intermittently. Renal sonogram showing no hydronephrosis. Blood sugars stable. Place PICC line secondary to poor IV access. Recheck BMP in am secondary to BINU and medications use. Will recheck CBC in am due to leukocytosis. Will continue with CCU care for close monitoring of cardiopulmonary status. 01/16/18 Will obtain Doppler tests lower ext due to pain and swelling to R/O DVT. Recheck BMP to monitor renal status as seeing increase to 3.6 this am. Urine output increased. Continue ceftriaxone and azithromycin for pulmonary coverage of potential pneumonia. O2 needs decreasing - wean O2 as able, BiPAP at night and during day as needed. 01/17/18 Continue nocturnal and prn BiPAP. Blood cx drawn for last night's fever. Check CXR. Continue ceftriaxone and azithromycin. WBC up slightly. Monitor. SCr continues at 3.6. Will DC Bumex drip and schedule 2 mg iv tid. Continue to monitor SCr. Add lactulose dose and trial of enemas. Doppler of BLE negative for DVT. 01/18/18 Continue nocturnal and prn BiPAP. Blood cx drawn for Friday night's fever show no growth. CXR shows improvement. Continue ceftriaxone and azithromycin. WBC up slightly. Monitor. SCr at 3.5. BUN trending up at 87. Bumex 2 mg iv tid. I/O 2333/2671. Continue to monitor. Bowels moved after lactulose and enema. Increase [place] to 7.5 for pain. BP better today. 01/19/18 Will continue ceftriaxone for pulmonary coverage - can stop azithromycin as course completed. Wean O2 as able. CPAP with O2 at night. Encourage deep breathing/IS for lung exercises. PT/OT to help functional status. Encourage increased activities - up to chair/ ambulate. Bumex 2 mg iv tid. Creatinine and potassium stable. Add PhosLo TID as phosphorus elevated secondary to CKD. Bowels moved after lactulose and enema. C diff negative. Can transfer patient to medical floor for continuation of care. 01/20/18 Continue ceftriaxone for pulmonary coverage. Continue O2 and BiPAP. Encourage breathing activities. PT/OT to help functional status. Encourage increased activities - up to chair/ ambulate. Bumex 2 mg iv tid. Creatinine and potassium stable. Increase atenolol to 50mg BID. Will add prn simethicone to help decrease abdominal cramping and bloating. 01/21 Lengthy discussion about goals to get home. These include weaning down oxygen as she usually does not use daytime oxygen She requests to be off narcotics as this causes fatigue. We will resume home in regimen including Tylenol 1000 milligrams in the morning , 1000 milligrams afternoon, and Tylenol PM at that time. Will leave tramadol for severe breakthrough pain as needed. Otherwise, discontinue IV morphine and [place]. Continue ceftriaxone for pulmonary coverage. Continue O2 and BiPAP. Encourage breathing activities. Bumex 2 mg TID for diuresis. Weight is down overall from admission Continue to work with PT/OT for strengthening. She would like to go home with . We discussed concern for weakness and inability to transfer safely. She acknowledges that SNU may be necessary at time of discharge. 01/22 Slight increase in BUN/Creatinine (114/3.3). Had been on Bumex TID and today starts BID dosing. Remains on 7L of oxygen. CXR on my review looks better - radiology report pending. DC Rocephin: 8 day course completed. DC scheduled Accuchecks per pt request. Blood sugars have been showing good control. Offered nasal saline for epistaxis - pt declined. 01/23 Slight increase in BUN though Creatinine is stable (129/3.3). DC IV Bumex and start Lasix 40 mg BID. Velazquez - start bladder retraining now that IV diuretics are stopped. Remains on 7L of oxygen. Encourage therapy. Wean as able. 01/24 Continue Lasix 40mg BID. Encourage deep breathing activities. Nursing able to wean O2 to 2L. Encourage activities and movement to help build strength. Recheck BMP in am due to stage IV CKD and medication use. Will recheck CBC in am due to anemia. 01/25 Patient appears to be intravascularly dry- BUN, Serum osmo quite high. Hold Lasix for today. Acute pulmonary edema resolved. Continue Home BiPAP and O2 for supportive care. Recheck CXR in am. Continue to hold Atenolol for now. Will order PT to help with increasing activity. Very limited due to severe obesity. Marcus out- check UA for possible infection. BG normal. Continue to monitor. May benefit from HH upon dismissal.
[2018-01-25] MEDS: ASPIRIN *EC* 81 MG TABLET PO SCH ×2 (13:07→20:53)
[2018-01-25] MEDS: SALINE FLUSH 10ml SYRINGE IVF PRN ×2 (20:52→22:32)
[2018-01-25] MEDS: APAP/DIPHENHYDRAMINE 500 MG/25 MG TABLET PO SCH (20:53)
[2018-01-26] MEDS: ACETAMINOPHEN 500 MG TABLET PO SCH ×2 (06:07→17:59)
[2018-01-26] MEDS: AMLODIPINE 10 MG TABLET PO SCH ×2 (07:56→08:16)
[2018-01-26] MEDS: ATENOLOL 50 MG TABLET PO SCH ×3 (07:57→21:18)
[2018-01-26] MEDS: ASPIRIN *EC* 81 MG TABLET PO SCH ×3 (07:57→21:18)
[2018-01-26] MEDS: CALCIUM ACETATE 667 MG CAPSULE PO SCH ×3 (07:58→18:24)
[2018-01-26] MEDS: FUROSEMIDE 40 MG TABLET PO SCH ×2 (07:58→08:17)
[2018-01-26] MEDS: LINACLOTIDE 145 MCG CAPSULE PO SCH (08:04)
[2018-01-26] MEDS: ENOXAPARIN 40 MG/0.4 ML INJECTION SQ SCH (08:05)
[2018-01-26] MEDS: POLYETHYL GLYCOL 3350 17gm PACKET PO SCH (08:17)
[2018-01-26] MEDS ORDERED: ENOXAPARIN 30 MG/0.3 ML INJECTION SQ SCH (09:00)
--- NOTE | 2018-01-26 14:52 | XRay Report ---
INDICATION: F/U pulmonary edema PROCEDURE: CHEST 2-VIEWS UPRIGHT (PA & LAT) Encounter: Initial COMPARISON: January 22, 2018 FINDINGS: Prior congestive failure has improved with no significant edema remaining. No new or worsening airspace disease. No pneumothorax or definite pleural effusion. The lateral view is limited due to positioning and technique. Heart size and mediastinal contours are stable. Impression: Improved congestive failure. .
--- NOTE | 2018-01-26 16:10 | Progress Note ---
- Date 01/26/18 Subjective: Patient is seen resting in bed this afternoon. Her main concern is getting strong enough to be able to go back home. Prior to hospitalization, she was living at home with her . Able to walk 20-30ft with walker. Transfers from lift chair to commode by her chair w/ assist from her . She feels her breathing and cough are better. SHe is still on 2 L O2 and is usually only on O2 at night at home. She is having arthritic pain which is chronic for her. Appetite is average. Bowels are moving. Objective Vital signs: Temperature 97.1 F 01/26/18 15:00 Pulse Rate 70 01/26/18 15:00 Respiratory Rate 16 01/26/18 15:00 Blood Pressure 145/66 H 01/26/18 15:00 Pulse Oximetry 94 01/26/18 15:00 Rhythm: Normal Sinus Rhythm Height/Weight/BMI: Height 1.7 m Weight 169.6 kg Body Mass Index 60.2 - Constitutional Present: no acute distress, well nourished, well developed, morbidly obese - Routine HEENT Exam Head: Present: normocephalic, atraumatic - Routine Respiratory Exam Present: CTA bilaterally. Absent: wheezes - Routine Cardiovascular Exam Present: RRR, no murmur - Routine Abdominal Exam Present: soft, non distended, non tender - Routine Extremities Exam Present: no edema, normal capillary refill - Routine Skin Exam Present: dry, warm - Routine Neurological Exam Present: alert, oriented X3 - Routine Lymphatic Exam Lymphatic: Absent: adenopathy - Routine Psychiatric Exam Present: normal affect, cooperative Results - Labs CBC & Chem 7: 01/26/18 04:13 01/26/18 04:13 Microbiology Results: Microbiology 01/16/18 22:17 Midline Blood Culture - Final No Growth After 5 Days 01/16/18 22:15 Midline Blood Culture - Final No Growth After 5 Days Assessment and Plan (1) Acute respiratory failure Current visit: Yes Status: Acute Assessment and Plan: Impression Acute respiratory failure with hypoxia Acute pulmonary edema Suspect pneumonia - clinically improved Acute kidney injury on top of chronic kidney disease Stage 4 CKD Hyperkalemia (POA) - resolved Leukocytosis (POA) resolved Hyperphosphatemia secondary to CKD Hypertension Type II DM Hypercholesterolemia Diastolic heart failure - chronic Obstructive of sleep apnea with obesity hypoventilation syndrome - home BiPAP with O2 at night Chronic back pain Morbid obesity - BMI 62 Plan Velazquez DC'd yesterday evening due to bladder spasms. Lasix held yesterday as she looks intravascularly dry. Weight is down 1.5 kg since yesterday. Continue to hold Lasix for now. Repeat BMP in am. Continues on 2L O2 (only uses at noc at home w/ BiPAP). Acute pulmonary edema resolved. Baseline SCr around 2.0-2.4- Consider limited gentle IV fluids if Cr/BUN not improving with holding Lasix? She has been screened for IRU and is potentially accepted pending insurance. - Physician Narrative Physician: Madina Lau MD Narrative: Date: 01/26/18 Time: 6 PM-I reviewed this chart, the patient history, and the SHIPPING SPECIALIST's/PA's documented findings as above. We discussed and formulated the assessment and plan as above with the additions below.-Dr. Lau The patient was seen this evening accompanied by her . She was initially admitted with acute on chronic hypoxic respiratory failure on 01/14/2018 with pulmonary edema. Diuresis was initiated. Admit weight was 176.9 kg and she is currently down to 169.6 kg. She was initially requiring BiPAP with high amounts of oxygen is currently on 2 L per nasal cannula. Creatinine on admission was 3.4 and is now down to 2.9. Her baseline is around 2.5. BUN on admission was 65 and is now up to 117. Baseline creatinine was 34-44. Chest x-ray has shown improvement in pulmonary edema. Renal sonogram showed no hydronephrosis but did show cortical thinning. She does have chronic kidney disease and sees Dr. Rod Taylor on occasion. She has decided against dialysis if her renal function should worsen. An echocardiogram was obtained at this hospital course and was a difficult study. She did have mild LVH and mild decreased left ventricular systolic function. Valves appeared to show no significant abnormalities. Today the patient states she's feeling okay. She does not feel overly thirsty. She denies any headache, chest pains or palpitations. She denies feeling short of breath. Her brought her BiPAP from home and she states that she tolerates her home BiPAP better than the hospital BiPAP. She would like to try her home BiPAP tonight. She denies any nausea or vomiting. She states she is eating and drinking well. She does state that when she got up from the chair in the sit to stand lift, she became lightheaded and had possible syncope. Her nurse states that she was quickly responsive. The patient states on occasion when she sits up on the side of the bed she feels lightheaded. On exam the patient is alert and in no acute distress. She is morbidly obese. HEENT reveals sclerae to be anicteric and oropharynx is moist. Neck is supple. Chest is clear to auscultation anteriorly. Cardiovascular reveals a regular rate and rhythm. Abdomen is soft and nontender. She has no edema in her lower abdomen. Extremities reveal no edema in the legs. The patient states she feels like her arms are edematous, but I do not notice any pitting. Skin is warm and dry and without rashes. Impression Acute kidney injury on chronic kidney disease. Creatinine is slowly improving but BUN remains elevated. Agree with holding Lasix at this time. She may be a little dry at this point. We'll discuss with nephrology. Pulmonary edema/congestive heart failure-improving. Obesity hypoventilation syndrome-we'll try the patient's home BiPAP tonight and monitor continuous oximetry Severe generalized weakness-recommend inpatient rehabilitation for strengthening. Awaiting IRU screen results. Increased immature granulocytes on lab today. We'll check CBC with manual differential and pro-calcitonin tomorrow. Monitor urine output and renal function closely with discontinuation of Velazquez catheter yesterday. The patient states she feels like she is urinating okay. Check renal panel, pro-calcitonin, proBNP and CBC with manual differential in the morning. Obtain orthostatic blood pressure and pulse tomorrow. Hospital Course Summary Disclaimer: The visit summary below is not to be considered part of the above Progress Note. Hospital Course: 01/14/18 Inpatient Admission to CCU Admit patient to inpatient status under care of Dr. Garcia for acute respiratory failure with hypoxia and pulmonary edema. Continue on BiPAP given respiratory distress. Patient is chronically on Lasix 40 milligrams daily. She was given 20 milligrams IV 1 in the emergency room. She also takes hydrochlorothiazide 50 milligrams daily. Will need to use caution with diuresing given acute renal injury. Will obtain a renal sonogram given acute kidney injury. Other etiology of hypoxia could be pulmonary emboli, however, given renal function, we are unable to give patient IV contrast at this time. Will cover with Lovenox 30 milligrams twice a day for prophylaxis. He recommendations as per pharmacy report. BMI greater than 40 prophylaxis dosing is recommended 30 BID rather than 40 mg daily. Due to known history of congestive heart failure. Will obtain echocardiogram for further cardiac evaluation. TSH, magnesium for laboratory completeness. Monitor Accu-Cheks routinely and obtain a hemoglobin A1c. At time of discharge medical care will return to primary care provider, Tevin SAUCEDO with [facility]. 01/15/18 Renal status/blood pressure stable - seeing increase urine output with Bumex drip. Repeat CXR with little change - ? underlying pneumonia. With continued leukocytosis will add azithromycin 500mg IV daily to currently scheduled daily ceftriaxone. Needing O2 at 6L - uses bipap intermittently. Renal sonogram showing no hydronephrosis. Blood sugars stable. Place PICC line secondary to poor IV access. Recheck BMP in am secondary to BINU and medications use. Will recheck CBC in am due to leukocytosis. Will continue with CCU care for close monitoring of cardiopulmonary status. 01/16/18 Will obtain Doppler tests lower ext due to pain and swelling to R/O DVT. Recheck BMP to monitor renal status as seeing increase to 3.6 this am. Urine output increased. Continue ceftriaxone and azithromycin for pulmonary coverage of potential pneumonia. O2 needs decreasing - wean O2 as able, BiPAP at night and during day as needed. 01/17/18 Continue nocturnal and prn BiPAP. Blood cx drawn for last night's fever. Check CXR. Continue ceftriaxone and azithromycin. WBC up slightly. Monitor. SCr continues at 3.6. Will DC Bumex drip and schedule 2 mg iv tid. Continue to monitor SCr. Add lactulose dose and trial of enemas. Doppler of BLE negative for DVT. 01/18/18 Continue nocturnal and prn BiPAP. Blood cx drawn for Friday night's fever show no growth. CXR shows improvement. Continue ceftriaxone and azithromycin. WBC up slightly. Monitor. SCr at 3.5. BUN trending up at 87. Bumex 2 mg iv tid. I/O 2333/2671. Continue to monitor. Bowels moved after lactulose and enema. Increase [place] to 7.5 for pain. BP better today. 01/19/18 Will continue ceftriaxone for pulmonary coverage - can stop azithromycin as course completed. Wean O2 as able. CPAP with O2 at night. Encourage deep breathing/IS for lung exercises. PT/OT to help functional status. Encourage increased activities - up to chair/ ambulate. Bumex 2 mg iv tid. Creatinine and potassium stable. Add PhosLo TID as phosphorus elevated secondary to CKD. Bowels moved after lactulose and enema. C diff negative. Can transfer patient to medical floor for continuation of care. 01/20/18 Continue ceftriaxone for pulmonary coverage. Continue O2 and BiPAP. Encourage breathing activities. PT/OT to help functional status. Encourage increased activities - up to chair/ ambulate. Bumex 2 mg iv tid. Creatinine and potassium stable. Increase atenolol to 50mg BID. Will add prn simethicone to help decrease abdominal cramping and bloating. 01/21 Lengthy discussion about goals to get home. These include weaning down oxygen as she usually does not use daytime oxygen She requests to be off narcotics as this causes fatigue. We will resume home in regimen including Tylenol 1000 milligrams in the morning , 1000 milligrams afternoon, and Tylenol PM at that time. Will leave tramadol for severe breakthrough pain as needed. Otherwise, discontinue IV morphine and [place]. Continue ceftriaxone for pulmonary coverage. Continue O2 and BiPAP. Encourage breathing activities. Bumex 2 mg TID for diuresis. Weight is down overall from admission Continue to work with PT/OT for strengthening. She would like to go home with . We discussed concern for weakness and inability to transfer safely. She acknowledges that SNU may be necessary at time of discharge. 01/22 Slight increase in BUN/Creatinine (114/3.3). Had been on Bumex TID and today starts BID dosing. Remains on 7L of oxygen. CXR on my review looks better - radiology report pending. DC Rocephin: 8 day course completed. DC scheduled Accuchecks per pt request. Blood sugars have been showing good control. Offered nasal saline for epistaxis - pt declined. 01/23 Slight increase in BUN though Creatinine is stable (129/3.3). DC IV Bumex and start Lasix 40 mg BID. Velazquez - start bladder retraining now that IV diuretics are stopped. Remains on 7L of oxygen. Encourage therapy. Wean as able. 01/24 Continue Lasix 40mg BID. Encourage deep breathing activities. Nursing able to wean O2 to 2L. Encourage activities and movement to help build strength. Recheck BMP in am due to stage IV CKD and medication use. Will recheck CBC in am due to anemia. 01/25 Patient appears to be intravascularly dry- BUN, Serum osmo quite high. Hold Lasix for today. Acute pulmonary edema resolved. Continue Home BiPAP and O2 for supportive care. Recheck CXR in am. Continue to hold Atenolol for now. Will order PT to help with increasing activity. Very limited due to severe obesity. Marcus out- check UA for possible infection. BG normal. Continue to monitor. May benefit from HH upon dismissal. 01/26 Marcus DC'd yesterday evening due to bladder spasms. Lasix held yesterday as she looks intravascularly dry. Weight is down 1.5 kg since yesterday. Continue to hold Lasix for now. Repeat BMP in am. Continues on 2L O2 (only uses at noc at home w/ BiPAP). Acute pulmonary edema resolved. Baseline SCr around 2.0-2.4- Consider limited gentle IV fluids if Cr/BUN not improving with holding Lasix? She has been screened for IRU and is potentially accepted pending insurance.
[2018-01-26] MEDS: TRAMADOL 50 MG TABLET PO PRN (21:17)
[2018-01-26] MEDS: APAP/DIPHENHYDRAMINE 500 MG/25 MG TABLET PO SCH (21:21)
[2018-01-26] MEDS: SALINE FLUSH 10ml SYRINGE IVF PRN (21:21)
[2018-01-27] MEDS: ACETAMINOPHEN 500 MG TABLET PO SCH ×2 (06:13→14:43)
[2018-01-27] MEDS: ENOXAPARIN 40 MG/0.4 ML INJECTION SQ SCH (11:08)
[2018-01-27] MEDS: CALCIUM ACETATE 667 MG CAPSULE PO SCH ×2 (11:09→14:43)
[2018-01-27] MEDS: AMLODIPINE 10 MG TABLET PO SCH (11:11)
[2018-01-27] MEDS: ASPIRIN *EC* 81 MG TABLET PO SCH ×2 (11:11→21:06)
[2018-01-27] MEDS: POLYETHYL GLYCOL 3350 17gm PACKET PO SCH (11:12)
[2018-01-27] MEDS: LINACLOTIDE 145 MCG CAPSULE PO SCH (11:12)
--- NOTE | 2018-01-27 11:50 | Progress Note ---
- Date 01/27/18 Subjective: The patient was seen this morning in her room. She states she is feeling about the same. She denies any shortness of breath. She was able to use her home BiPAP last night without difficulties. She is eating and drinking okay. She does not feel thirsty. She is urinating without difficulties. 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 She did feel lightheaded after she was standing. Objective Vital signs: Temperature 96.8 F 01/27/18 11:00 Pulse Rate 68 01/27/18 11:00 Respiratory Rate 18 01/27/18 11:00 Blood Pressure 122/65 01/27/18 11:00 Pulse Oximetry 95 01/27/18 11:00 Rhythm: Normal Sinus Rhythm Height/Weight/BMI: Height 1.7 m Weight 170.1 kg Body Mass Index 60.2 Comments: On telemetry the patient had bradycardia and a couple of pauses this morning one of which was up to 3 seconds. On review of telemetry, she had questionable V. tach on the evening of 01/25/2018 and then what appears to be a 6 beat run on 01/20/2018 Orthostatic vitals today lying 132/67 with pulse of 57, sitting 143/84 with pulse of 72, standing 111/48 with pulse of 78 GEN-alert, oriented, no acute distress. Does seem a little short of breath at this time but just was repositioned after urinating HEENT-oropharynx is moist NECK-supple CV-regular rate and rhythm CHEST-clear to auscultation bilaterally ABD-soft, obese, nontender with positive bowel sounds -no Velazquez EXT-SCDs are on, no edema NEURO-no focal deficits SKIN-warm and dry and without rashes Results - Labs CBC & Chem 7: 01/27/18 04:41 01/27/18 04:41 Labs: Pro-calcitonin is normal. Phosphorus is normal. Calcium is up to 10.6. Microbiology Results: Microbiology 01/16/18 22:17 Midline Blood Culture - Final No Growth After 5 Days 01/16/18 22:15 Midline Blood Culture - Final No Growth After 5 Days Assessment and Plan (1) Acute respiratory failure Current visit: Yes Status: Acute Assessment and Plan: Impression Acute respiratory failure with hypoxia-slowly improving area did tolerating home BiPAP Acute pulmonary edema -resolved on chest x-ray 01/26/2018 Suspect pneumonia - clinically resolved Acute kidney injury on top of chronic kidney disease Stage 4 CKD Hyperkalemia (POA) - resolved Leukocytosis (POA) resolved Hyperphosphatemia secondary to CKD-resolved on PhosLo Hypertension -fair control with blood pressures up to 160s systolic. Most in the 120s to 140s Type II DM ?-Glucose on morning lab range from 99-143 Hypercholesterolemia Diastolic heart failure - chronic Obstructive of sleep apnea with obesity hypoventilation syndrome - home BiPAP with O2 at night Chronic back pain Morbid obesity - BMI 62 Plan Velazquez DC'd 01/25/2018 due to bladder spasms. Lasix currently on hold. She does appear to be dry at this time. Discussed with nephrology regarding acute kidney injury We'll discuss with cardiology regarding sinus pauses, bradycardia and questionable V. tach. Beta blockers on hold for now. Continues on 2L O2 (only uses at noc at home w/ BiPAP). Acute pulmonary edema resolved. Increase activity as tolerated with physical therapy and occupational therapy. I would recommend inpatient rehabilitation, awaiting final decision from the patient's insurance company. DVT Prophylaxis: SCD's, Lovenox Resuscitation Status: Do Not Resuscitate - Time spent with patient Time with patient PN: 30 minutes - Physician Narrative Narrative: Date: 01/27/18 Time: 1140 Hospital Course Summary Disclaimer: The visit summary below is not to be considered part of the above Progress Note. Hospital Course: 01/14/18 Inpatient Admission to CCU Admit patient to inpatient status under care of Dr. Garcia for acute respiratory failure with hypoxia and pulmonary edema. Continue on BiPAP given respiratory distress. Patient is chronically on Lasix 40 milligrams daily. She was given 20 milligrams IV 1 in the emergency room. She also takes hydrochlorothiazide 50 milligrams daily. Will need to use caution with diuresing given acute renal injury. Will obtain a renal sonogram given acute kidney injury. Other etiology of hypoxia could be pulmonary emboli, however, given renal function, we are unable to give patient IV contrast at this time. Will cover with Lovenox 30 milligrams twice a day for prophylaxis. He recommendations as per pharmacy report. BMI greater than 40 prophylaxis dosing is recommended 30 BID rather than 40 mg daily. Due to known history of congestive heart failure. Will obtain echocardiogram for further cardiac evaluation. TSH, magnesium for laboratory completeness. Monitor Accu-Cheks routinely and obtain a hemoglobin A1c. At time of discharge medical care will return to primary care provider, Tevin SAUCEDO with [facility]. 01/15/18 Renal status/blood pressure stable - seeing increase urine output with Bumex drip. Repeat CXR with little change - ? underlying pneumonia. With continued leukocytosis will add azithromycin 500mg IV daily to currently scheduled daily ceftriaxone. Needing O2 at 6L - uses bipap intermittently. Renal sonogram showing no hydronephrosis. Blood sugars stable. Place PICC line secondary to poor IV access. Recheck BMP in am secondary to BINU and medications use. Will recheck CBC in am due to leukocytosis. Will continue with CCU care for close monitoring of cardiopulmonary status. 01/16/18 Will obtain Doppler tests lower ext due to pain and swelling to R/O DVT. Recheck BMP to monitor renal status as seeing increase to 3.6 this am. Urine output increased. Continue ceftriaxone and azithromycin for pulmonary coverage of potential pneumonia. O2 needs decreasing - wean O2 as able, BiPAP at night and during day as needed. 01/17/18 Continue nocturnal and prn BiPAP. Blood cx drawn for last night's fever. Check CXR. Continue ceftriaxone and azithromycin. WBC up slightly. Monitor. SCr continues at 3.6. Will DC Bumex drip and schedule 2 mg iv tid. Continue to monitor SCr. Add lactulose dose and trial of enemas. Doppler of BLE negative for DVT. 01/18/18 Continue nocturnal and prn BiPAP. Blood cx drawn for Friday night's fever show no growth. CXR shows improvement. Continue ceftriaxone and azithromycin. WBC up slightly. Monitor. SCr at 3.5. BUN trending up at 87. Bumex 2 mg iv tid. I/O 2333/2671. Continue to monitor. Bowels moved after lactulose and enema. Increase [place] to 7.5 for pain. BP better today. 01/19/18 Will continue ceftriaxone for pulmonary coverage - can stop azithromycin as course completed. Wean O2 as able. CPAP with O2 at night. Encourage deep breathing/IS for lung exercises. PT/OT to help functional status. Encourage increased activities - up to chair/ ambulate. Bumex 2 mg iv tid. Creatinine and potassium stable. Add PhosLo TID as phosphorus elevated secondary to CKD. Bowels moved after lactulose and enema. C diff negative. Can transfer patient to medical floor for continuation of care. 01/20/18 Continue ceftriaxone for pulmonary coverage. Continue O2 and BiPAP. Encourage breathing activities. PT/OT to help functional status. Encourage increased activities - up to chair/ ambulate. Bumex 2 mg iv tid. Creatinine and potassium stable. Increase atenolol to 50mg BID. Will add prn simethicone to help decrease abdominal cramping and bloating. 01/21 Lengthy discussion about goals to get home. These include weaning down oxygen as she usually does not use daytime oxygen She requests to be off narcotics as this causes fatigue. We will resume home in regimen including Tylenol 1000 milligrams in the morning , 1000 milligrams afternoon, and Tylenol PM at that time. Will leave tramadol for severe breakthrough pain as needed. Otherwise, discontinue IV morphine and [place]. Continue ceftriaxone for pulmonary coverage. Continue O2 and BiPAP. Encourage breathing activities. Bumex 2 mg TID for diuresis. Weight is down overall from admission Continue to work with PT/OT for strengthening. She would like to go home with . We discussed concern for weakness and inability to transfer safely. She acknowledges that SNU may be necessary at time of discharge. 01/22 Slight increase in BUN/Creatinine (114/3.3). Had been on Bumex TID and today starts BID dosing. Remains on 7L of oxygen. CXR on my review looks better - radiology report pending. DC Rocephin: 8 day course completed. DC scheduled Accuchecks per pt request. Blood sugars have been showing good control. Offered nasal saline for epistaxis - pt declined. 01/23 Slight increase in BUN though Creatinine is stable (129/3.3). DC IV Bumex and start Lasix 40 mg BID. Velazquez - start bladder retraining now that IV diuretics are stopped. Remains on 7L of oxygen. Encourage therapy. Wean as able. 01/24 Continue Lasix 40mg BID. Encourage deep breathing activities. Nursing able to wean O2 to 2L. Encourage activities and movement to help build strength. Recheck BMP in am due to stage IV CKD and medication use. Will recheck CBC in am due to anemia. 01/25 Patient appears to be intravascularly dry- BUN, Serum osmo quite high. Hold Lasix for today. Acute pulmonary edema resolved. Continue Home BiPAP and O2 for supportive care. Recheck CXR in am. Continue to hold Atenolol for now. Will order PT to help with increasing activity. Very limited due to severe obesity. Velazquez out- check UA for possible infection. BG normal. Continue to monitor. May benefit from HH upon dismissal. 01/26 Velazquez DC'd yesterday evening due to bladder spasms. Lasix held yesterday as she looks intravascularly dry. Weight is down 1.5 kg since yesterday. Continue to hold Lasix for now. Repeat BMP in am. Continues on 2L O2 (only uses at noc at home w/ BiPAP). Acute pulmonary edema resolved. Baseline SCr around 2.0-2.4- Consider limited gentle IV fluids if Cr/BUN not improving with holding Lasix? She has been screened for IRU and is potentially accepted pending insurance.
[2018-01-27] MEDS ORDERED: NS 1,000 ML IV SCH (12:15)
[2018-01-27] MEDS: SALINE FLUSH 10ml SYRINGE IVF PRN (12:36)
--- NOTE | 2018-01-27 14:28 | Cardiology Consult Note ---
<Montse Valenzuela - Last Filed: 01/28/18 11:01> History of Present Illness Consult date: 01/27/18 Requesting physician: Madina Lau Chief complaint: bradycardia History of present illness: Sully is a 67 year-old female admitted in the care of the hospitalist after presenting to the ED with respiratory distress, accompanied with leukocytosis and acute kidney injury. She routinely utilizes oxygen at nighttime only, however, has noted that she is more dyspneic requiring oxygen more often recently. Baseline creatinine does appear to be average 2.5 as she has known chronic kidney disease. BNP was 4350, Chest x-ray did reveal new moderate to severe pulmonary edema. She was given Lasix 20 milligrams IV for gentle diuresis and was covered with empiric Rocephin IV. She was placed on BiPAP to help with tachypnea and dyspnea. She had some sinus arrest pauses this morning which led to further evaluation of past telemetry and showed what appeared to be V Tach and Dr. Bey was consulted. Upon his review, arrhythmia is identified as A Fib with aberrancy. Review of Systems - Constitutional Constitutional: Absent: chills, fatigue, fever(s) - EENMT Eyes: Absent: change in vision Balance: Absent: vertigo Mouth/Throat: Absent: sore throat - Cardiovascular Cardiovascular: Present: dyspnea on exertion. Absent: chest pain, palpitations , edema Rhythm: Absent: abnormal rhythm Vascular: Absent: pedal edema - Respiratory Respiratory: Absent: cough, dyspnea, dyspnea on exertion - Gastrointestinal Gastrointestinal: Absent: abdominal pain, constipation, nausea, vomiting - Genitourinary Genitourinary: Absent: dysuria - Integumentary/Breasts Integumentary: Absent: rash - Neurological Neurological: Absent: dizziness - Endocrine Endocrine: Absent: palpitations PFSH Patient Stated Medical History Congestive Heart Failure Yes Hypertension Yes Sleep Apnea Yes Diabetes Mellitus Type 2 Yes: denies taking any current meds, says AIC has been ok Hx Renal Disease Yes Hx Urinary Tract Infection Yes Other Yes: CKD stage 3 Other Musculoskeletal Yes: chronic knee Sepsis Yes Blood Transfusions Yes: when she had hysterectomy Medical History Updates: Type II diabetes. Chronic kidney disease-stage IV. Obesity hypoventilation syndrome. Hypercholesterolemia. Hypertension. Hyperlipidemia. Chronic diastolic heart failure. Chronic back pain. Morbid obesity- BMI 62% Surgical History: Exploratory laparotomy, lysis of adhesions and decompression colonoscopy. 11-13-2010 [facility]. Sigmoid resection (many years prior to 2010) . Colonoscopy and decompression 11/26/2010 [facility]. Hysterectomy & bilateral salpingo-oophorectomy. Right bunionectomy. Right knee arthroscopy Family History: Brother - brain cancer Brother - heart disease, diabetes Sister - HTN both parents of old age - Social History Smoking status: Never smoker Substance use type: does not use Alcohol intake frequency: does not drink Housing: house Household members: spouse Current residence: Apartment/Private Home Medications Home Medications Medication Instructions Recorded Confirmed Type Acetaminophen [Acetaminophen ER] 1,300 mg PO BID 01/14/18 01/14/18 History Acetaminophen/Diphenhydramine 2 tab PO HS 01/14/18 01/14/18 History [Acetaminophen Pm Caplet] Amlodipine [Norvasc] 10 mg PO DAILY 01/14/18 01/14/18 History Aspirin [Aspirin EC] 162 mg PO BID 01/14/18 01/14/18 History Atenolol [Tenormin] 50 mg PO HS 01/14/18 01/14/18 History Atenolol [Tenormin] 100 mg PO QAM 01/14/18 01/14/18 History Furosemide [Lasix 40 mg Tab] 40 mg PO DAILY 01/14/18 01/14/18 History HydroCHLOROthiazide [HydroDIURIL] 50 mg PO DAILY 01/14/18 01/14/18 History Hydrocodone/APAP 5/325 [[place] 1 tab PO Q6H PRN 01/14/18 01/14/18 History 5/325] Linaclotide [Linzess] 145 mcg PO DAILY 01/14/18 01/14/18 History Peg 3350 238 G Bottle [Miralax] 17 gm PO DAILY 01/14/18 01/14/18 History Tramadol [Ultram] 50 mg PO BID PRN 01/14/18 01/14/18 History Allergies Allergy/AdvReac Type Severity Reaction Status Date / Time doxazosin Allergy Mild Verified 01/14/18 15:48 lisinopril AdvReac Intermediate VOMITTING Verified 01/14/18 15:48 gabapentin AdvReac Unknown Verified 01/14/18 15:48 Exam Vital signs: Temperature 96.8 F 01/27/18 11:00 Pulse Rate 56 L 01/27/18 12:28 Respiratory Rate 18 01/27/18 11:00 Blood Pressure 122/65 01/27/18 11:00 Pulse Oximetry 97 01/27/18 11:46 - Constitutional no acute distress, well developed, morbidly obese, cooperative - Routine HEENT Exam Head: Present: normocephalic ENT: Present: mucous membranes moist - Routine Neck Exam Absent: JVD, carotid bruit - Routine Chest/Breast/Axilla Exam Chest wall: Absent: tenderness - Routine Respiratory Exam Present: CTA bilaterally, diminished air movement. Absent: dyspnea - Routine Cardiovascular Exam Present: RRR. Absent: no murmur, JVD - Routine Abdominal Exam Present: soft, normoactive bowel sounds - Routine Extremities Exam Present: no edema - Routine Skin Exam Present: intact, dry, warm - Routine Neurological Exam Present: alert, oriented X3 - Routine Psychiatric Exam Present: normal affect, normal thought process Results 01/27/18 04:41 01/28/18 04:09 CBC 01/27/18 Range/Units 04:41 WBC 10.6 (4.5-11.0) T/MM3 RBC 3.90 L (4.00-5.20) M/MM3 Hgb 11.2 L (12-16) GM/DL Hct 36.4 (36-46) % Plt Count 448 H (130-400) T/MM3 Comprehensive Metabolic Panel 01/27/18 Range/Units 04:41 Sodium 144 (134-144) MEQ/L Potassium 4.2 (3.6-5) MEQ/L Chloride 101 (98-107) MEQ/L Carbon Dioxide 29 (22-30) MEQ/L BUN 110.0 H* (7-17) MG/DL Creatinine 3.0 H (0.7-1.2) mg/dL Glucose 121 H (65-110) MG/DL Calcium 10.6 H (8.4-10.2) MG/DL Albumin 4.3 (3.5-5.0) g/dL Intake and Output 01/26/18 01/27/18 01/27/18 22:59 06:59 14:59 Intake Total 800 / 800 200 / 200 1160 / 1160 Output Total 450 / 450 Balance 800 / 800 200 / 200 710 / 710 Intake: Oral 800 / 800 200 / 200 1160 / 1160 Output: Urine 450 / 450 Other: Urine Appearance Clear Clear Urine Color Yellow Dark Yellow Yellow Urine Odor Normal # Voids 1 1 Weight 375 lb 0.101 oz Patient Weight 01/28/18 06:59 Weight 375 lb 0.101 oz - Imaging and Cardiology Imaging & Cardiology Narrative: Date of Exam: 01/15/18 Type of Exam(s): US echo doppler complete DATE OF STUDY 01/15/2018 INDICATIONS Pulmonary edema. TECHNICAL QUALITY Technically very difficult 2D, M-mode, Doppler echocardiographic images, due to quite challenging acoustic windows, were submitted for interpretation. FINDINGS 1. CARDIAC CHAMBERS: Left atrial diameter of 3.7 cm is normal. Left ventricle is dilated, measuring 6.1 cm. Right heart cardiac chambers don't appear enlarged. 2. LEFT VENTRICLE: Borderline concentric LVH is present. Wall motion analysis is abnormal. Posterior wall appears echogenic and thinned out as judged on limited views. LV function is judged based on very limited views, namely the parasternal long axis view and limited short axis view. There is probably mild LV systolic dysfunction. EF in the range of 45%-50%. This cannot be confirmed, however, due to difficult images. E/A is normal at 1.1. No tissue Doppler was performed for full diastolic function assessment. 3. VALVES: Aortic and mitral valve exhibit sclerotic changes. Visualization of the leaflets is quite poor due to very difficult acoustic windows. Doppler study shows questionable trace mitral regurgitation. No significant aortic stenosis with a mean gradient of only 9 mmHg, peak velocity of 2.1 m/sec and a valve area of 2.4. Trace tricuspid regurgitation with estimated systolic PA pressure of 26-31 mmHg. 4. Central venous pressure cannot be adequately assessed due to the patient being on BiPAP and exhibits a dilated IVC which is a nonspecific finding in the presence of positive intrathoracic pressure. 5. No evidence of pericardial effusion, intracardiac masses, thrombi, vegetations or demonstrable shunts on this very limited study. IMPRESSION 1. Left ventricular enlargement. 2. Mild concentric LVH. 3. LV systolic function appears mildly reduced based on very limited views. 4. No significant valvular dysfunction. 5. Clinically very difficult study due to poor acoustic windows caused by patient's body habitus, being on BiPAP and in ICU. EKG interpretations - EKG EKG results cardiology: sinus rhythm - Blocks, axis, hypertrophy, ST abn AV and intraventricular conduction: left anterior fascicular block Assessment and Plan - Assessment and Plan (1) Sinus arrest Current visit: Yes Status: Acute 3.1 second pauses. - Likely caused by vagal response to activity/ pain - Hold Atenolol - Continue to monitor telemetry (2) Chronic kidney disease Current visit: Yes Status: Chronic BUN 110/ Scr 3.0 - Seen by - Does not want hemodialysis. (3) Congestive heart failure Problem details: Diastolic Current visit: Yes Status: Chronic BNP 1880 from 4350 (4) Essential (primary) hypertension Current visit: Yes Status: Chronic Continue Amlodipine (5) Mixed hyperlipidemia Current visit: Yes Status: Chronic (6) Morbid obesity with BMI of 50.0-59.9, adult Current visit: Yes Status: Chronic - Assessment and Plan Sinus arrest: 3.1 second pauses. - Likely caused by vagal response to activity/ pain - Hold Atenolol - Continue to monitor telemetry Hospital Course Summary Disclaimer: The visit summary below is not to be considered part of the above Progress Note. Hospital Course: 01/14/18 Inpatient Admission to CCU Admit patient to inpatient status under care of Dr. Garcia for acute respiratory failure with hypoxia and pulmonary edema. Continue on BiPAP given respiratory distress. Patient is chronically on Lasix 40 milligrams daily. She was given 20 milligrams IV 1 in the emergency room. She also takes hydrochlorothiazide 50 milligrams daily. Will need to use caution with diuresing given acute renal injury. Will obtain a renal sonogram given acute kidney injury. Other etiology of hypoxia could be pulmonary emboli, however, given renal function, we are unable to give patient IV contrast at this time. Will cover with Lovenox 30 milligrams twice a day for prophylaxis. He recommendations as per pharmacy report. BMI greater than 40 prophylaxis dosing is recommended 30 BID rather than 40 mg daily. Due to known history of congestive heart failure. Will obtain echocardiogram for further cardiac evaluation. TSH, magnesium for laboratory completeness. Monitor Accu-Cheks routinely and obtain a hemoglobin A1c. At time of discharge medical care will return to primary care provider, Tevin SAUCEDO with [facility]. 01/15/18 Renal status/blood pressure stable - seeing increase urine output with Bumex drip. Repeat CXR with little change - ? underlying pneumonia. With continued leukocytosis will add azithromycin 500mg IV daily to currently scheduled daily ceftriaxone. Needing O2 at 6L - uses bipap intermittently. Renal sonogram showing no hydronephrosis. Blood sugars stable. Place PICC line secondary to poor IV access. Recheck BMP in am secondary to BINU and medications use. Will recheck CBC in am due to leukocytosis. Will continue with CCU care for close monitoring of cardiopulmonary status. 01/16/18 Will obtain Doppler tests lower ext due to pain and swelling to R/O DVT. Recheck BMP to monitor renal status as seeing increase to 3.6 this am. Urine output increased. Continue ceftriaxone and azithromycin for pulmonary coverage of potential pneumonia. O2 needs decreasing - wean O2 as able, BiPAP at night and during day as needed. 01/17/18 Continue nocturnal and prn BiPAP. Blood cx drawn for last night's fever. Check CXR. Continue ceftriaxone and azithromycin. WBC up slightly. Monitor. SCr continues at 3.6. Will DC Bumex drip and schedule 2 mg iv tid. Continue to monitor SCr. Add lactulose dose and trial of enemas. Doppler of BLE negative for DVT. 01/18/18 Continue nocturnal and prn BiPAP. Blood cx drawn for Friday night's fever show no growth. CXR shows improvement. Continue ceftriaxone and azithromycin. WBC up slightly. Monitor. SCr at 3.5. BUN trending up at 87. Bumex 2 mg iv tid. I/O 2333/2671. Continue to monitor. Bowels moved after lactulose and enema. Increase [place] to 7.5 for pain. BP better today. 01/19/18 Will continue ceftriaxone for pulmonary coverage - can stop azithromycin as course completed. Wean O2 as able. CPAP with O2 at night. Encourage deep breathing/IS for lung exercises. PT/OT to help functional status. Encourage increased activities - up to chair/ ambulate. Bumex 2 mg iv tid. Creatinine and potassium stable. Add PhosLo TID as phosphorus elevated secondary to CKD. Bowels moved after lactulose and enema. C diff negative. Can transfer patient to medical floor for continuation of care. 01/20/18 Continue ceftriaxone for pulmonary coverage. Continue O2 and BiPAP. Encourage breathing activities. PT/OT to help functional status. Encourage increased activities - up to chair/ ambulate. Bumex 2 mg iv tid. Creatinine and potassium stable. Increase atenolol to 50mg BID. Will add prn simethicone to help decrease abdominal cramping and bloating. 01/21 Lengthy discussion about goals to get home. These include weaning down oxygen as she usually does not use daytime oxygen She requests to be off narcotics as this causes fatigue. We will resume home in regimen including Tylenol 1000 milligrams in the morning , 1000 milligrams afternoon, and Tylenol PM at that time. Will leave tramadol for severe breakthrough pain as needed. Otherwise, discontinue IV morphine and [place]. Continue ceftriaxone for pulmonary coverage. Continue O2 and BiPAP. Encourage breathing activities. Bumex 2 mg TID for diuresis. Weight is down overall from admission Continue to work with PT/OT for strengthening. She would like to go home with . We discussed concern for weakness and inability to transfer safely. She acknowledges that SNU may be necessary at time of discharge. 01/22 Slight increase in BUN/Creatinine (114/3.3). Had been on Bumex TID and today starts BID dosing. Remains on 7L of oxygen. CXR on my review looks better - radiology report pending. JENNIFER Rocephin: 8 day course completed. DC scheduled Accuchecks per pt request. Blood sugars have been showing good control. Offered nasal saline for epistaxis - pt declined. 01/23 Slight increase in BUN though Creatinine is stable (129/3.3). DC IV Bumex and start Lasix 40 mg BID. Velazquez - start bladder retraining now that IV diuretics are stopped. Remains on 7L of oxygen. Encourage therapy. Wean as able. 01/24 Continue Lasix 40mg BID. Encourage deep breathing activities. Nursing able to wean O2 to 2L. Encourage activities and movement to help build strength. Recheck BMP in am due to stage IV CKD and medication use. Will recheck CBC in am due to anemia. 01/25 Patient appears to be intravascularly dry- BUN, Serum osmo quite high. Hold Lasix for today. Acute pulmonary edema resolved. Continue Home BiPAP and O2 for supportive care. Recheck CXR in am. Continue to hold Atenolol for now. Will order PT to help with increasing activity. Very limited due to severe obesity. Velazquez out- check UA for possible infection. BG normal. Continue to monitor. May benefit from HH upon dismissal. 01/26 Velazquez DC'd yesterday evening due to bladder spasms. Lasix held yesterday as she looks intravascularly dry. Weight is down 1.5 kg since yesterday. Continue to hold Lasix for now. Repeat BMP in am. Continues on 2L O2 (only uses at noc at home w/ BiPAP). Acute pulmonary edema resolved. Baseline SCr around 2.0-2.4- Consider limited gentle IV fluids if Cr/BUN not improving with holding Lasix? She has been screened for IRU and is potentially accepted pending insurance. <Spencer Johnson - Last Filed: 01/29/18 13:21> [facility] Patient Stated Medical History Congestive Heart Failure Yes Hypertension Yes Sleep Apnea Yes Diabetes Mellitus Type 2 Yes: denies taking any current meds, says AIC has been ok Hx Renal Disease Yes Hx Urinary Tract Infection Yes Other Yes: CKD stage 3 Other Musculoskeletal Yes: chronic knee Sepsis Yes Blood Transfusions Yes: when she had hysterectomy Exam Vital signs: Temperature 96.4 F L 01/29/18 07:46 Pulse Rate 95 01/29/18 09:15 Respiratory Rate 20 01/29/18 09:15 Blood Pressure 114/64 01/29/18 09:15 Pulse Oximetry 94 01/29/18 12:03 Results 01/27/18 04:41 01/29/18 04:01 Comprehensive Metabolic Panel 01/29/18 Range/Units 04:01 Sodium 144 (134-144) MEQ/L Potassium 4.4 (3.6-5) MEQ/L Chloride 105 (98-107) MEQ/L Carbon Dioxide 26 (22-30) MEQ/L BUN 100.0 H* (7-17) MG/DL Creatinine 3.0 H (0.7-1.2) mg/dL Glucose 115 H (65-110) MG/DL Calcium 8.8 D (8.4-10.2) MG/DL Albumin 3.7 (3.5-5.0) g/dL Intake and Output 01/28/18 01/29/18 01/29/18 22:59 06:59 14:59 Intake Total 640 / 640 1350 / 1350 718 / 718 Output Total 150 / 150 350 / 350 200 / 200 Balance 490 / 490 1000 / 1000 518 / 518 Intake: IV 1000 / 1000 1/2 Ns 1,000 ml @ 100 mls/hr IV 1000 / 1000 .Q10H [facility] Rx#:[id number] Oral 640 / 640 350 / 350 718 / 718 Output: Urine Amount (Catheter) 150 / 150 350 / 350 200 / 200 Other: Urine Appearance Clear Clear Clear Urine Color Yellow Yellow Yellow Stool Color Brown Stool Consistency Formed Liquid Size of Bowel Movement Moderate # Voids 1 1 1 # Bowel Movements 1 Weight 171.3 kg Patient Weight 01/30/18 06:59 Weight 171.3 kg Assessment and Plan - Attestation Attestation Narrative: 01/29/18 13:21 Recommendation After examining the patient I agree with the above assessment. I am involved in the formulation of the patient's plan of care. Thank you for the consult. - Assessment and Plan (1) Congestive heart failure Problem details: Diastolic Current visit: Yes Status: Chronic (2) Sinus arrest Current visit: Yes Status: Acute (3) Chronic kidney disease Current visit: Yes Status: Chronic (4) Essential (primary) hypertension Current visit: Yes Status: Chronic (5) Mixed hyperlipidemia Current visit: Yes Status: Chronic (6) Morbid obesity with BMI of 50.0-59.9, adult Current visit: Yes Status: Chronic Hospital Course Summary Disclaimer: The visit summary below is not to be considered part of the above Progress Note.
[2018-01-27] MEDS: ONDANSETRON 4 MG/2 ML INJECTION IVP PRN (17:43)
--- NOTE | 2018-01-27 18:02 | Consultation ---
DATE OF CONSULTATION 01/27/2018 REASON FOR CONSULTATION Acute kidney injury. HISTORY OF PRESENT ILLNESS The patient is a [id number] with stage IV chronic kidney disease due to diabetic nephropathy who I know fairly well from outpatient clinic. I have not seen her since 2014 because she has had problems with mobility. She is morbidly obese and doesn't leave her house very often. At that time her creatinine was averaging around 2 mg/dL. She was admitted to this hospital on 01/14/2018 due to worsening shortness of air. Based on chest x-ray and exam she was thought to be in pulmonary edema. She was given additional diuretics. She takes diuretics at home. Her breathing did improve. Her creatinine was 3.4 on admission and did improve to 2.9 yesterday. Her creatinine is 3.0 today. Her BUN has remained elevated although it has improved slightly and is only 110 today. It was 129 a few days ago. Her diuretics have been decreased. She has been given some IV fluids. She has obstructive sleep apnea and is on CPAP at home. She is requiring supplemental oxygen here. Her calcium is elevated at 10.6. PAST MEDICAL HISTORY 1. Type 2 diabetes mellitus. 2. Diabetic nephropathy. 3. Diabetic neuropathy. 4. Stage IV chronic kidney disease. 5. Obstructive sleep apnea. 6. Chronic back pain. 7. Morbid obesity. 8. Hypertension. 9. Hyperlipidemia. PAST SURGICAL HISTORY 1. Hysterectomy. 2. Right knee surgery. 3. Right bunionectomy. ALLERGIES No known drug allergies. CURRENT MEDICATIONS Please see medication reconciliation list. SOCIAL HISTORY The patient is . She does not smoke cigarettes or drink alcohol. FAMILY HISTORY Both of her parents of natural causes. There is no family history of kidney disease. REVIEW OF SYSTEMS A ten-point review of systems was completed and negative except for the History of Present Illness. PHYSICAL EXAMINATION GENERAL: The patient is an alert, well-developed woman in no acute distress. VITAL SIGNS: Temperature 97.9, pulse 66, respiratory rate 20, blood pressure 168 /93. She is on 2 L of oxygen with her CPAP. HEENT: Pupils are equal, round, reactive to light. Lids and conjunctivae normal. Oropharynx is moist. NECK: Neck veins are difficult to assess. LUNGS: No wheezes or rales. HEART: Regular rate and rhythm without murmurs. ABDOMEN: Obese, nontender. Hypoactive bowel sounds. EXTREMITIES: No cyanosis or edema. SKIN: No rash or ulcerations. NEUROLOGIC: She is alert and oriented x 3 and has regular speech. ASSESSMENT/PLAN 1. Stage IV chronic kidney disease with baseline creatinine probably 2.5 mg/ dL. She has stated repeatedly in the past and again today that she would not do dialysis if she develops the need for renal replacement therapy. She understands that this would cause her . 2. Acute kidney injury. I suspect the patient has prerenal azotemia related to her diuretics. I agree with holding them and treating her with some IV fluids. 3. Hypercalcemia. The patient doesn't appear to be on any vitamin D or calcium- containing medications. I am going to check a vitamin D level and PTH. 4. Hypertension. The patient's blood pressure is variable. She is on atenolol and Amlodipine. 5. Obstructive sleep apnea with probably some restrictive lung disease based on her morbid obesity. The patient is on CPAP at night. [facility]
[2018-01-27] MEDS: APAP/DIPHENHYDRAMINE 500 MG/25 MG TABLET PO SCH (21:06)
[2018-01-28] MEDS: LINACLOTIDE 145 MCG CAPSULE PO SCH (06:55)
[2018-01-28] MEDS: ACETAMINOPHEN 500 MG TABLET PO SCH ×2 (06:55→17:28)
[2018-01-28] MEDS: AMLODIPINE 10 MG TABLET PO SCH (09:23)
[2018-01-28] MEDS: POLYETHYL GLYCOL 3350 17gm PACKET PO SCH (09:24)
[2018-01-28] MEDS: ENOXAPARIN 40 MG/0.4 ML INJECTION SQ SCH (09:24)
[2018-01-28] MEDS: ASPIRIN *EC* 81 MG TABLET PO SCH ×2 (09:24→21:19)
--- NOTE | 2018-01-28 11:20 | Cardiology Progress Note ---
<Montse Valenzuela M - Last Filed: 01/29/18 18:12> Subjective Principal diagnosis: sinus pause Interval history: Sully is seen in follow up for bradycardia. She is sitting up in the recliner. She denies chest pain, palpitations. She asks what the plan is for treating atrial fibrillation, explained that we are watching for anymore bradycardia before we decide on treatment of A Fib since it was not persistent. Exam Vital signs: Temperature 97.3 F 01/28/18 08:00 Pulse Rate 65 01/28/18 08:00 Respiratory Rate 20 01/28/18 08:00 Blood Pressure 146/64 H 01/28/18 08:00 Pulse Oximetry 94 01/28/18 08:00 Inpatient Medications: Generic Name Dose Route Start Last Admin Trade Name Freq PRN Reason Stop Dose Admin Acetaminophen 1,000 mg 01/21/18 14:00 01/28/18 06:55 Tylenol PO 1,000 mg [id number] MYNOR Administration Acetaminophen/Diphenhydramine HCl 2 tab 01/14/18 21:00 01/27/18 21:06 Tylenol Pm PO 2 tab HS MYNOR Administration Amlodipine Besylate 10 mg 01/15/18 09:00 01/28/18 09:23 Norvasc PO 10 mg DAILY MYNOR Administration Aspirin 162 mg 01/14/18 21:00 01/28/18 09:24 Ecotrin PO 162 mg BID MYNOR Administration Atenolol 50 mg 01/20/18 21:00 01/26/18 21:18 Tenormin PO 50 mg BID MYNOR Administration Bisacodyl 10 mg 01/14/18 17:56 01/16/18 17:30 Dulcolax RECTALLY 10 mg DAILY PRN Administration Constipation Enoxaparin Sodium 40 mg 01/23/18 09:00 01/28/18 09:24 Lovenox SQ 40 mg DAILY MYNOR Administration Furosemide 40 mg 01/26/18 09:00 01/26/18 08:17 Lasix 40 Mg Tab PO Not Given DAILY MYNOR Hydralazine HCl 10 mg 01/17/18 23:41 01/18/18 06:03 Apresoline IVP 10 mg Q6H PRN Administration SBP > 180 mm Hg Linaclotide 145 mcg 01/23/18 07:30 01/28/18 06:55 Linzess PO 145 mcg 0730 MYNOR Administration Lorazepam 0.5 mg 01/14/18 17:56 01/25/18 22:31 Ativan Inj IVP 0.5 mg Q4H PRN Administration Anxiety/Air hunger/Agitation Ondansetron HCl 4 mg 01/14/18 22:45 01/27/18 17:43 Zofran IVP 4 mg Q4H PRN Administration Nausea &/or vomiting Polyethylene Glycol 17 gm 01/16/18 09:00 01/28/18 09:24 Miralax PO 17 gm DAILY MYNOR Administration Senna/Docusate Sodium 1 tab 01/14/18 17:56 01/19/18 20:51 Senna Plus Tablet PO 1 tab BID PRN Administration Constipation Sodium Chloride 10 - 80 ml 01/14/18 15:35 01/27/18 12:36 Iv Flush IVF 10 ml PRN PRN Administration Flushing Tramadol HCl 50 mg 01/21/18 13:55 01/26/18 21:17 Ultram PO 50 mg Q6H PRN Administration Pain Discontinued Medications Generic Name Dose Route Start Last Admin Trade Name Freq PRN Reason Stop Dose Admin Acetaminophen 650 mg 01/15/18 10:49 01/20/18 16:09 Tylenol PO 650 mg Q5H PRN Administration Pain Acetaminophen 1,300 mg 01/20/18 21:00 01/21/18 09:28 Tylenol Arthritis PO 1,300 mg BID MYNOR Administration Hydrocodone Bitart/Acetaminophen 1 tab 01/14/18 17:56 01/18/18 09:31 [place] 5/325 PO 1 tab Q6H PRN Administration Pain Hydrocodone Bitart/Acetaminophen 1 tab 01/18/18 15:25 01/20/18 10:20 [place] 7.5/325 PO 1 tab Q6H PRN Administration Pain Albuterol/Ipratropium 3 ml 01/14/18 15:39 01/14/18 15:44 Duoneb AEROSOL 01/14/18 15:40 3 ml O ONE Administration Amlodipine Besylate 5 mg 01/18/18 00:54 01/18/18 01:00 Norvasc PO 01/18/18 00:55 5 mg O ONE Administration Atenolol 25 mg 01/17/18 21:00 01/20/18 09:20 Tenormin PO 25 mg BID MYNOR Administration Bumetanide 2 mg 01/17/18 15:00 01/21/18 16:05 Bumex 1 Mg/4 Ml Inj. IVP 2 mg TID MYNOR Administration Bumetanide 2 mg 01/21/18 21:00 01/23/18 10:36 Bumex 1 Mg/4 Ml Inj. IVP Not Given BID MYNOR Calcium Acetate 1,334 mg 01/19/18 12:00 01/27/18 14:43 Phoslo PO 1,334 mg TIDWM MYNOR Administration Enoxaparin Sodium 30 mg 01/14/18 21:00 01/22/18 08:50 Lovenox SQ 30 mg BID MYNOR Administration Enoxaparin Sodium 30 mg 01/23/18 09:00 Lovenox SQ DAILY MYNOR Furosemide 20 mg 01/14/18 17:17 01/14/18 17:51 Lasix 20 Mg/2 Ml IVP 01/14/18 17:18 20 mg O ONE Administration Furosemide 40 mg 01/23/18 17:00 01/25/18 09:03 Lasix 40 Mg Tab PO 40 mg 0900,1700 MYNOR Administration Ceftriaxone Sodium 1 gm/ 100 mls @ 200 mls/hr 01/14/18 17:17 01/14/18 17:56 Sodium Chloride IV 01/14/18 17:46 200 mls/hr O ONE Administration Bumetanide 25 mg/ IV Solution 100 mls @ 2 mls/hr 01/14/18 17:56 01/17/18 11: 00 IV Infused Q24H MYNOR Infusion Ceftriaxone Sodium 1 g/ Sodium 100 mls @ 200 mls/hr 01/15/18 09:00 01/22/18 09:27 Chloride IV Infused DAILY MYNOR Infusion Sodium Chloride 500 mls @ 20 mls/hr 01/15/18 06:20 01/15/18 10:21 Normal Saline IV Not Given .Q24H MYNOR Sodium Chloride 500 mls @ 20 mls/hr 01/14/18 20:00 01/18/18 21:40 Normal Saline IV Not Given .Q24H MYNOR Azithromycin 500 mg/ Sodium 250 mls @ 167 mls/hr 01/15/18 09:30 01/19/18 11: 09 Chloride IV Infused Q24H MYNOR Infusion Sodium Chloride 1,000 mls @ 100 mls/hr 01/27/18 12:15 01/27/18 22:40 Normal Saline IV 01/27/18 22:14 Infused .Q10H MYNOR Infusion Lactulose 20 gm 01/17/18 09:56 01/17/18 11:46 Lactulose PO 01/17/18 09:57 20 gm O ONE Administration Linaclotide 145 mcg 01/20/18 09:00 01/22/18 08:49 Linzess PO 145 mcg DAILY MYNOR Administration Melatonin 3 mg 01/22/18 02:23 01/22/18 02:29 Melatonin PO 01/22/18 02:24 3 mg ONE TIME ONE Administration Mineral Oil 1 enema 01/17/18 09:56 01/17/18 10:37 Fleet Mineral Oil Enema NH 01/17/18 09:57 1 enema O ONE Administration Morphine Sulfate 2 mg 01/14/18 17:56 01/15/18 16:14 Morphine Sulfate Inj IVP 2 mg Q2HR PRN Administration Pain /Air hunger Morphine Sulfate 2 mg 01/15/18 16:15 01/20/18 04:36 Morphine Sulfate Inj IVP 2 mg Q2H PRN Administration Pain /Air hunger Morphine Sulfate 4 mg 01/17/18 02:43 01/17/18 02:49 Morphine Sulfate Inj IVP 01/17/18 02:44 4 mg O ONE Administration Pharmacy Consult 1 each 01/14/18 19:33 Pharmacy Consult - Fall Risk XX 01/14/18 19:34 ONE TIME ONE Pharmacy Consult 1 each 01/24/18 18:05 Pharmacy Consult - Fall Risk MC 01/24/18 18:06 ONE TIME ONE Pneumococcal 7-Valent Conj Vacc 0.5 ml 01/15/18 12:08 01/15/18 12:42 Prevnar 13 IM 01/15/18 12:09 0.5 ml .ONCE ONE Administration Polyethylene Glycol 17 gm 01/15/18 09:00 01/15/18 10:21 Miralax PO Not Given DAILY MYNOR Tramadol HCl 50 mg 01/14/18 17:56 Ultram PO BID PRN Pain - Constitutional no acute distress, morbidly obese, cooperative - Routine HEENT Exam Head: Present: normocephalic ENT: Present: mucous membranes moist - Routine Neck Exam Absent: JVD, carotid bruit - Routine Chest/Breast/Axilla Exam Chest wall: Absent: tenderness - Routine Respiratory Exam Present: CTA bilaterally, diminished air movement. Absent: rales, wheezes - Routine Cardiovascular Exam Present: RRR, no murmur - Routine Abdominal Exam Present: soft, normoactive bowel sounds - Routine Skin Exam Present: intact, dry, warm - Routine Neurological Exam Present: alert, oriented X3 - Routine Psychiatric Exam Present: normal affect, normal thought process - Urinary Catheter Management Straight Cath placed during this visit: yes, but has since been removed by the nurse Insertion date: 01/14/18 Insertion time: 19:15 Removal date: 01/25/18 Removal time: 10:19 Results 01/27/18 04:41 01/29/18 04:01 Comprehensive Metabolic Panel 01/28/18 Range/Units 04:09 Sodium 146 H (134-144) MEQ/L Potassium 4.1 (3.6-5) MEQ/L Chloride 105 (98-107) MEQ/L Carbon Dioxide 27 (22-30) MEQ/L BUN 109.0 H* (7-17) MG/DL Creatinine 3.0 H (0.7-1.2) mg/dL Glucose 117 H (65-110) MG/DL Calcium 9.8 (8.4-10.2) MG/DL Intake and Output 01/27/18 01/28/18 01/28/18 22:59 06:59 14:59 Intake Total 1400 / 1400 50 / 50 Output Total 300 / 300 350 / 350 Balance 1100 / 1100 -300 / -300 Intake: IV 1000 / 1000 Ns 1,000 ml @ 100 mls/hr IV . 1000 / 1000 Q10H MYNOR Rx#:[id number] Oral 400 / 400 50 / 50 Output: Urine 350 / 350 Urine/Stool Mix 300 / 300 Other: Urine Appearance Clear Clear Urine Color Yellow Yellow Stool Characteristics Normal for Patient Stool Color Brown Stool Consistency Liquid Size of Bowel Movement Large # Voids 1 1 Weight 373 lb 10.936 oz Patient Weight 01/29/18 06:59 Weight 373 lb 10.936 oz Assessment and Plan - Assessment and Plan (1) Sinus arrest Current visit: Yes Status: Acute (2) Chronic kidney disease Current visit: Yes Status: Chronic (3) Congestive heart failure Problem details: Diastolic Current visit: Yes Status: Chronic (4) Essential (primary) hypertension Current visit: Yes Status: Chronic (5) Mixed hyperlipidemia Current visit: Yes Status: Chronic (6) Morbid obesity with BMI of 50.0-59.9, adult Current visit: Yes Status: Chronic - Assessment and Plan 01/27/18 Sinus arrest: 3.1 second pauses. - Likely caused by vagal response to activity/ pain - Hold Atenolol - Continue to monitor telemetry Chronic kidney disease BUN 110/ Scr 3.0 - Seen by - Does not want hemodialysis. Congestive heart failure Problem details: Diastolic BNP 1880 from 4350 Essential (primary) hypertension Continue Amlodipine Mixed hyperlipidemia Morbid obesity with BMI of 50.0-59.9, adult 01/28/18 Discussed plan with patient to watch for anymore bradycardia then will decide on treatment of A Fib since it was not persistent. Hospital Course Summary Disclaimer: The visit summary below is not to be considered part of the above Progress Note. Hospital Course: 01/14/18 Inpatient Admission to CCU Admit patient to inpatient status under care of Dr. Garcia for acute respiratory failure with hypoxia and pulmonary edema. Continue on BiPAP given respiratory distress. Patient is chronically on Lasix 40 milligrams daily. She was given 20 milligrams IV 1 in the emergency room. She also takes hydrochlorothiazide 50 milligrams daily. Will need to use caution with diuresing given acute renal injury. Will obtain a renal sonogram given acute kidney injury. Other etiology of hypoxia could be pulmonary emboli, however, given renal function, we are unable to give patient IV contrast at this time. Will cover with Lovenox 30 milligrams twice a day for prophylaxis. He recommendations as per pharmacy report. BMI greater than 40 prophylaxis dosing is recommended 30 BID rather than 40 mg daily. Due to known history of congestive heart failure. Will obtain echocardiogram for further cardiac evaluation. TSH, magnesium for laboratory completeness. Monitor Accu-Cheks routinely and obtain a hemoglobin A1c. At time of discharge medical care will return to primary care provider, Tevin SAUCEDO with [facility]. 01/15/18 Renal status/blood pressure stable - seeing increase urine output with Bumex drip. Repeat CXR with little change - ? underlying pneumonia. With continued leukocytosis will add azithromycin 500mg IV daily to currently scheduled daily ceftriaxone. Needing O2 at 6L - uses bipap intermittently. Renal sonogram showing no hydronephrosis. Blood sugars stable. Place PICC line secondary to poor IV access. Recheck BMP in am secondary to BINU and medications use. Will recheck CBC in am due to leukocytosis. Will continue with CCU care for close monitoring of cardiopulmonary status. 01/16/18 Will obtain Doppler tests lower ext due to pain and swelling to R/O DVT. Recheck BMP to monitor renal status as seeing increase to 3.6 this am. Urine output increased. Continue ceftriaxone and azithromycin for pulmonary coverage of potential pneumonia. O2 needs decreasing - wean O2 as able, BiPAP at night and during day as needed. 01/17/18 Continue nocturnal and prn BiPAP. Blood cx drawn for last night's fever. Check CXR. Continue ceftriaxone and azithromycin. WBC up slightly. Monitor. SCr continues at 3.6. Will DC Bumex drip and schedule 2 mg iv tid. Continue to monitor SCr. Add lactulose dose and trial of enemas. Doppler of BLE negative for DVT. 01/18/18 Continue nocturnal and prn BiPAP. Blood cx drawn for Friday night's fever show no growth. CXR shows improvement. Continue ceftriaxone and azithromycin. WBC up slightly. Monitor. SCr at 3.5. BUN trending up at 87. Bumex 2 mg iv tid. I/O 2333/2671. Continue to monitor. Bowels moved after lactulose and enema. Increase [place] to 7.5 for pain. BP better today. 01/19/18 Will continue ceftriaxone for pulmonary coverage - can stop azithromycin as course completed. Wean O2 as able. CPAP with O2 at night. Encourage deep breathing/IS for lung exercises. PT/OT to help functional status. Encourage increased activities - up to chair/ ambulate. Bumex 2 mg iv tid. Creatinine and potassium stable. Add PhosLo TID as phosphorus elevated secondary to CKD. Bowels moved after lactulose and enema. C diff negative. Can transfer patient to medical floor for continuation of care. 01/20/18 Continue ceftriaxone for pulmonary coverage. Continue O2 and BiPAP. Encourage breathing activities. PT/OT to help functional status. Encourage increased activities - up to chair/ ambulate. Bumex 2 mg iv tid. Creatinine and potassium stable. Increase atenolol to 50mg BID. Will add prn simethicone to help decrease abdominal cramping and bloating. 01/21 Lengthy discussion about goals to get home. These include weaning down oxygen as she usually does not use daytime oxygen She requests to be off narcotics as this causes fatigue. We will resume home in regimen including Tylenol 1000 milligrams in the morning , 1000 milligrams afternoon, and Tylenol PM at that time. Will leave tramadol for severe breakthrough pain as needed. Otherwise, discontinue IV morphine and [place]. Continue ceftriaxone for pulmonary coverage. Continue O2 and BiPAP. Encourage breathing activities. Bumex 2 mg TID for diuresis. Weight is down overall from admission Continue to work with PT/OT for strengthening. She would like to go home with . We discussed concern for weakness and inability to transfer safely. She acknowledges that SNU may be necessary at time of discharge. 01/22 Slight increase in BUN/Creatinine (114/3.3). Had been on Bumex TID and today starts BID dosing. Remains on 7L of oxygen. CXR on my review looks better - radiology report pending. DC Rocephin: 8 day course completed. DC scheduled Accuchecks per pt request. Blood sugars have been showing good control. Offered nasal saline for epistaxis - pt declined. 01/23 Slight increase in BUN though Creatinine is stable (129/3.3). DC IV Bumex and start Lasix 40 mg BID. Velazquez - start bladder retraining now that IV diuretics are stopped. Remains on 7L of oxygen. Encourage therapy. Wean as able. 01/24 Continue Lasix 40mg BID. Encourage deep breathing activities. Nursing able to wean O2 to 2L. Encourage activities and movement to help build strength. Recheck BMP in am due to stage IV CKD and medication use. Will recheck CBC in am due to anemia. 01/25 Patient appears to be intravascularly dry- BUN, Serum osmo quite high. Hold Lasix for today. Acute pulmonary edema resolved. Continue Home BiPAP and O2 for supportive care. Recheck CXR in am. Continue to hold Atenolol for now. Will order PT to help with increasing activity. Very limited due to severe obesity. Velazquez out- check UA for possible infection. BG normal. Continue to monitor. May benefit from HH upon dismissal. 01/26 Velazquez DC'd yesterday evening due to bladder spasms. Lasix held yesterday as she looks intravascularly dry. Weight is down 1.5 kg since yesterday. Continue to hold Lasix for now. Repeat BMP in am. Continues on 2L O2 (only uses at noc at home w/ BiPAP). Acute pulmonary edema resolved. Baseline SCr around 2.0-2.4- Consider limited gentle IV fluids if Cr/BUN not improving with holding Lasix? She has been screened for IRU and is potentially accepted pending insurance. <Spencer Johnson - Last Filed: 01/30/18 13:51> Exam Vital signs: Temperature 96.2 F L 01/30/18 07:24 Pulse Rate 76 01/30/18 08:54 Respiratory Rate 18 01/30/18 07:24 Blood Pressure 170/72 H 01/30/18 08:54 Pulse Oximetry 94 01/30/18 10:32 Inpatient Medications: Generic Name Dose Route Start Last Admin Trade Name Freq PRN Reason Stop Dose Admin Acetaminophen 1,000 mg 01/21/18 14:00 01/30/18 08:39 Tylenol PO 1,000 mg [id number] MYNOR Administration Acetaminophen/Diphenhydramine HCl 2 tab 01/14/18 21:00 01/29/18 21:24 Tylenol Pm PO 2 tab HS MYNOR Administration Amlodipine Besylate 10 mg 01/15/18 09:00 01/30/18 08:40 Norvasc PO 10 mg DAILY MYNOR Administration Apixaban 2.5 mg 01/29/18 21:00 01/30/18 08:39 Eliquis PO 2.5 mg BID MYNOR Administration Aspirin 162 mg 01/14/18 21:00 01/30/18 08:39 Ecotrin PO 162 mg BID MYNOR Administration Atenolol 50 mg 01/20/18 21:00 01/26/18 21:18 Tenormin PO 50 mg BID MYNOR Administration Bisacodyl 10 mg 01/14/18 17:56 01/16/18 17:30 Dulcolax RECTALLY 10 mg DAILY PRN Administration Constipation Cholecalciferol 1,000 unit 01/30/18 09:00 01/30/18 08:39 Vit. D-3 PO 1,000 unit DAILY MYNOR Administration Furosemide 40 mg 01/26/18 09:00 01/26/18 08:17 Lasix 40 Mg Tab PO Not Given DAILY MYNOR Hydralazine HCl 10 mg 01/17/18 23:41 01/18/18 06:03 Apresoline IVP 10 mg Q6H PRN Administration SBP > 180 mm Hg Dextrose/Sodium Chloride 1,000 mls @ 100 mls/hr 01/30/18 11:15 01/30/18 12:02 D5-1/4ns IV 01/30/18 21:14 100 mls/hr .Q10H MYNOR Administration Linaclotide 145 mcg 01/23/18 07:30 01/30/18 08:39 Linzess PO 145 mcg 0730 MYNOR Administration Lorazepam 0.5 mg 01/14/18 17:56 01/25/18 22:31 Ativan Inj IVP 0.5 mg Q4H PRN Administration Anxiety/Air hunger/Agitation Ondansetron HCl 4 mg 01/14/18 22:45 01/29/18 12:46 Zofran IVP 4 mg Q4H PRN Administration Nausea &/or vomiting Polyethylene Glycol 17 gm 01/16/18 09:00 01/30/18 08:39 Miralax PO 17 gm DAILY MYNOR Administration Senna/Docusate Sodium 1 tab 01/14/18 17:56 01/29/18 21:24 Senna Plus Tablet PO 1 tab BID PRN Administration Constipation Sodium Chloride 10 - 80 ml 01/14/18 15:35 01/27/18 12:36 Iv Flush IVF 10 ml PRN PRN Administration Flushing Tramadol HCl 50 mg 01/21/18 13:55 01/28/18 17:29 Ultram PO 50 mg Q6H PRN Administration Pain Trolamine Salicylate 1 applic 01/28/18 15:40 Aspercreme TOP PRN PRN Discontinued Medications Generic Name Dose Route Start Last Admin Trade Name Freq PRN Reason Stop Dose Admin Acetaminophen 650 mg 01/15/18 10:49 01/20/18 16:09 Tylenol PO 650 mg Q5H PRN Administration Pain Acetaminophen 1,300 mg 01/20/18 21:00 01/21/18 09:28 Tylenol Arthritis PO 1,300 mg BID MYNOR Administration Hydrocodone Bitart/Acetaminophen 1 tab 01/14/18 17:56 01/18/18 09:31 [place] 5/325 PO 1 tab Q6H PRN Administration Pain Hydrocodone Bitart/Acetaminophen 1 tab 01/18/18 15:25 01/20/18 10:20 [place] 7.5/325 PO 1 tab Q6H PRN Administration Pain Albuterol/Ipratropium 3 ml 01/14/18 15:39 01/14/18 15:44 Duoneb AEROSOL 01/14/18 15:40 3 ml O ONE Administration Amlodipine Besylate 5 mg 01/18/18 00:54 01/18/18 01:00 Norvasc PO 01/18/18 00:55 5 mg O ONE Administration Atenolol 25 mg 01/17/18 21:00 01/20/18 09:20 Tenormin PO 25 mg BID MYNOR Administration Bumetanide 2 mg 01/17/18 15:00 01/21/18 16:05 Bumex 1 Mg/4 Ml Inj. IVP 2 mg TID MYNOR Administration Bumetanide 2 mg 01/21/18 21:00 01/23/18 10:36 Bumex 1 Mg/4 Ml Inj. IVP Not Given BID MYNOR Calcium Acetate 1,334 mg 01/19/18 12:00 01/27/18 14:43 Phoslo PO 1,334 mg TIDWM MYNOR Administration Enoxaparin Sodium 30 mg 01/14/18 21:00 01/22/18 08:50 Lovenox SQ 30 mg BID MYNOR Administration Enoxaparin Sodium 30 mg 01/23/18 09:00 Lovenox SQ DAILY MYNOR Enoxaparin Sodium 40 mg 01/23/18 09:00 01/29/18 09:39 Lovenox SQ 40 mg DAILY MYNOR Administration Furosemide 20 mg 01/14/18 17:17 01/14/18 17:51 Lasix 20 Mg/2 Ml IVP 01/14/18 17:18 20 mg O ONE Administration Furosemide 40 mg 01/23/18 17:00 01/25/18 09:03 Lasix 40 Mg Tab PO 40 mg 0900,1700 MYNOR Administration Ceftriaxone Sodium 1 gm/ 100 mls @ 200 mls/hr 01/14/18 17:17 01/14/18 17:56 Sodium Chloride IV 01/14/18 17:46 200 mls/hr O ONE Administration Bumetanide 25 mg/ IV Solution 100 mls @ 2 mls/hr 01/14/18 17:56 01/17/18 11: 00 IV Infused Q24H MYNOR Infusion Ceftriaxone Sodium 1 g/ Sodium 100 mls @ 200 mls/hr 01/15/18 09:00 01/22/18 09:27 Chloride IV Infused DAILY MYNOR Infusion Sodium Chloride 500 mls @ 20 mls/hr 01/15/18 06:20 01/15/18 10:21 Normal Saline IV Not Given .Q24H MYNOR Sodium Chloride 500 mls @ 20 mls/hr 01/14/18 20:00 01/18/18 21:40 Normal Saline IV Not Given .Q24H MYNOR Azithromycin 500 mg/ Sodium 250 mls @ 167 mls/hr 01/15/18 09:30 01/19/18 11: 09 Chloride IV Infused Q24H MYNOR Infusion Sodium Chloride 1,000 mls @ 100 mls/hr 01/27/18 12:15 01/27/18 22:40 Normal Saline IV 01/27/18 22:14 Infused .Q10H MYNOR Infusion Sodium Chloride 1,000 mls @ 100 mls/hr 01/28/18 15:45 01/29/18 03:31 1/2 Normal Saline IV 01/29/18 01:44 Infused .Q10H MYNOR Infusion Sodium Chloride 1,000 mls @ 100 mls/hr 01/29/18 13:15 01/30/18 10:30 1/2 Normal Saline IV 01/30/18 09:14 Infused .Q10H MYNOR Infusion Lactulose 20 gm 01/17/18 09:56 01/17/18 11:46 Lactulose PO 01/17/18 09:57 20 gm O ONE Administration Linaclotide 145 mcg 01/20/18 09:00 01/22/18 08:49 Linzess PO 145 mcg DAILY MYNOR Administration Melatonin 3 mg 01/22/18 02:23 01/22/18 02:29 Melatonin PO 01/22/18 02:24 3 mg ONE TIME ONE Administration Mineral Oil 1 enema 01/17/18 09:56 01/17/18 10:37 Fleet Mineral Oil Enema NH 01/17/18 09:57 1 enema O ONE Administration Morphine Sulfate 2 mg 01/14/18 17:56 01/15/18 16:14 Morphine Sulfate Inj IVP 2 mg Q2HR PRN Administration Pain /Air hunger Morphine Sulfate 2 mg 01/15/18 16:15 01/20/18 04:36 Morphine Sulfate Inj IVP 2 mg Q2H PRN Administration Pain /Air hunger Morphine Sulfate 4 mg 01/17/18 02:43 01/17/18 02:49 Morphine Sulfate Inj IVP 01/17/18 02:44 4 mg O ONE Administration Pharmacy Consult 1 each 01/14/18 19:33 Pharmacy Consult - Fall Risk XX 01/14/18 19:34 ONE TIME ONE Pharmacy Consult 1 each 01/24/18 18:05 Pharmacy Consult - Fall Risk MC 01/24/18 18:06 ONE TIME ONE Pneumococcal 7-Valent Conj Vacc 0.5 ml 01/15/18 12:08 01/15/18 12:42 Prevnar 13 IM 01/15/18 12:09 0.5 ml .ONCE ONE Administration Polyethylene Glycol 17 gm 01/15/18 09:00 01/15/18 10:21 Miralax PO Not Given DAILY MYNOR Tramadol HCl 50 mg 01/14/18 17:56 Ultram PO BID PRN Pain - Urinary Catheter Management Straight Cath placed during this visit: no Results 01/30/18 04:44 01/30/18 04:44 CBC 01/30/18 Range/Units 04:44 WBC 9.2 (4.5-11.0) T/MM3 RBC 3.59 L (4.00-5.20) M/MM3 Hgb 10.5 L (12-16) GM/DL Hct 34.1 L (36-46) % Plt Count 329 (130-400) T/MM3 Neut # (Auto) Cancelled Lymph # (Auto) Cancelled Cherry # (Auto) Cancelled Eos # (Auto) Cancelled Baso # (Auto) Cancelled Comprehensive Metabolic Panel 01/30/18 Range/Units 04:44 Sodium 147 H (134-144) MEQ/L Potassium 4.9 (3.6-5) MEQ/L Chloride 108 H (98-107) MEQ/L Carbon Dioxide 25 (22-30) MEQ/L BUN 92.0 H* (7-17) MG/DL Creatinine 2.6 H D (0.7-1.2) mg/dL Glucose 104 (65-110) MG/DL Calcium 8.6 (8.4-10.2) MG/DL Albumin 3.9 (3.5-5.0) g/dL Intake and Output 01/29/18 01/30/18 01/30/18 22:59 06:59 14:59 Intake Total 350 / 350 1050 / 1050 1810 / 1810 Output Total 400 / 400 Balance 350 / 350 1050 / 1050 1410 / 1410 Intake: IV 1000 / 1000 1000 / 1000 1/2 Ns 1,000 ml @ 100 mls/hr IV 1000 / 1000 1000 / 1000 .Q10H MYNOR Rx#:[id number] Oral 350 / 350 50 / 50 810 / 810 Output: Urine 400 / 400 Other: Urine Appearance Clear Clear Urine Color Yellow Yellow Urine Odor Normal Normal Stool Color Brown Stool Consistency Formed Liquid Size of Bowel Movement Moderate # Voids 1 1 1 # Bowel Movements 1 Weight 171.4 kg Patient Weight 01/31/18 06:59 Weight 171.4 kg Assessment and Plan - Assessment and Plan (1) Congestive heart failure Problem details: Diastolic Current visit: Yes Status: Chronic (2) Sinus arrest Current visit: Yes Status: Acute (3) Chronic kidney disease Current visit: Yes Status: Chronic (4) Essential (primary) hypertension Current visit: Yes Status: Chronic (5) Mixed hyperlipidemia Current visit: Yes Status: Chronic (6) Morbid obesity with BMI of 50.0-59.9, adult Current visit: Yes Status: Chronic (7) PAF (paroxysmal atrial fibrillation) Current visit: Yes Status: Acute - Attestation Attestation Narrative: 01/30/18 13:51 Recommendation After examining the patient I agree with the above assessment. I am involved in the formulation of the patient's plan of care. Hospital Course Summary Disclaimer: The visit summary below is not to be considered part of the above Progress Note.
[2018-01-28] MEDS ORDERED: 1/2 NS 1,000 ML IV SCH (15:45)
--- NOTE | 2018-01-28 15:46 | Progress Note ---
- Date 01/28/18 Subjective: The patient was seen this afternoon in her room. She states she feels tired today. She states she had a lot of pain in her knees when she tried to get up with physical therapy. They were unable to get her blood pressure standing because the blood pressure cuff "popped off". She denied lightheadedness with standing. She states she has chronic arthritis in her knees. She states her physician gave her a muscle relaxant but this caused confusion and bad dreams. She was also given hydrocodone that this caused sedation and didn't seem to help much. She has used Aspercreme in the past which did seem to help some. She denies any shortness of breath. She is currently on 2 L of oxygen with saturation of 95%. She is eating and drinking okay. She denies any other complaints. She is urinating okay. Velazquez was removed 3 days ago. Objective Vital signs: Temperature 97.9 F 01/28/18 15:22 Pulse Rate 70 01/28/18 15:22 Respiratory Rate 20 01/28/18 15:22 Blood Pressure 125/56 01/28/18 15:22 Pulse Oximetry 95 01/28/18 15:22 Rhythm: Normal Sinus Rhythm Height/Weight/BMI: Height 1.7 m Weight 169.5 kg Body Mass Index 60.2 Comments: I&O 2760/750 On review of telemetry, she has not had any further bradycardia or pauses GEN-alert, oriented, no acute distress HEENT-oropharynx is moist NECK-supple CV-regular rate and rhythm CHEST-clear to auscultation bilaterally from the anterior ABD-soft, nontender with positive bowel sounds -no Velazquez EXT-edema NEURO-generalized weakness SKIN-warm and dry Results - Labs CBC & Chem 7: 01/27/18 04:41 01/28/18 04:09 Labs: Calcium is down to 9.8. PTH was elevated at 163.9 Microbiology Results: Microbiology 01/16/18 22:17 Midline Blood Culture - Final No Growth After 5 Days 01/16/18 22:15 Midline Blood Culture - Final No Growth After 5 Days Assessment and Plan (1) Acute respiratory failure Current visit: Yes Status: Acute Assessment and Plan: Impression Acute respiratory failure with hypoxia-slowly improving area did tolerating home BiPAP Acute pulmonary edema -resolved on chest x-ray 01/26/2018 Suspect pneumonia - clinically resolved Acute kidney injury on top of chronic kidney disease Stage 4 CKD Hyperkalemia (POA) - resolved Leukocytosis (POA) resolved Hyperphosphatemia secondary to CKD-resolved on PhosLo -PhosLo discontinued on Hypercalcemia-improved post IV fluids. Elevated PTH Hypertension -fair control with blood pressures up to 160s systolic. Most in the 120s to 140s Type II DM ?-Glucose on morning lab range from 99-143 Hypercholesterolemia Diastolic heart failure - chronic Obstructive of sleep apnea with obesity hypoventilation syndrome - home BiPAP with O2 at night Chronic back pain Morbid obesity - BMI 62 Bradycardia with pauses-seems to have resolved after atenolol was held. Plan The patient was given 1 L of normal saline over 10 hours yesterday because she appeared dry. BUN and creatinine have not changed significantly today. Hypercalcemia however has resolved. Will give 1 L of half-normal saline today over 10 hours. She does have mild hypernatremia today with sodium of 146. We'll try Aspercreme once daily prior to physical therapy for knee pain. Continue to monitor on telemetry off of atenolol. Titrate O2 as tolerated. I did turn her down to 1.5 L this afternoon. Awaiting final decision from patient's insurance company regarding possible inpatient rehabilitation. I think inpatient rehabilitation would be in the best interest of the patient for continued therapy and strengthening while monitoring her tenuous kidney function and diastolic heart failure. DVT Prophylaxis: Lovenox Resuscitation Status: Do Not Resuscitate - Physician Narrative Narrative: Date: 01/28/18 Time: 1542 Hospital Course Summary Disclaimer: The visit summary below is not to be considered part of the above Progress Note. Hospital Course: 01/14/18 Inpatient Admission to CCU Admit patient to inpatient status under care of Dr. Garcia for acute respiratory failure with hypoxia and pulmonary edema. Continue on BiPAP given respiratory distress. Patient is chronically on Lasix 40 milligrams daily. She was given 20 milligrams IV 1 in the emergency room. She also takes hydrochlorothiazide 50 milligrams daily. Will need to use caution with diuresing given acute renal injury. Will obtain a renal sonogram given acute kidney injury. Other etiology of hypoxia could be pulmonary emboli, however, given renal function, we are unable to give patient IV contrast at this time. Will cover with Lovenox 30 milligrams twice a day for prophylaxis. He recommendations as per pharmacy report. BMI greater than 40 prophylaxis dosing is recommended 30 BID rather than 40 mg daily. Due to known history of congestive heart failure. Will obtain echocardiogram for further cardiac evaluation. TSH, magnesium for laboratory completeness. Monitor Accu-Cheks routinely and obtain a hemoglobin A1c. At time of discharge medical care will return to primary care provider, Tevin SAUCEDO with [facility]. 01/15/18 Renal status/blood pressure stable - seeing increase urine output with Bumex drip. Repeat CXR with little change - ? underlying pneumonia. With continued leukocytosis will add azithromycin 500mg IV daily to currently scheduled daily ceftriaxone. Needing O2 at 6L - uses bipap intermittently. Renal sonogram showing no hydronephrosis. Blood sugars stable. Place PICC line secondary to poor IV access. Recheck BMP in am secondary to BINU and medications use. Will recheck CBC in am due to leukocytosis. Will continue with CCU care for close monitoring of cardiopulmonary status. 01/16/18 Will obtain Doppler tests lower ext due to pain and swelling to R/O DVT. Recheck BMP to monitor renal status as seeing increase to 3.6 this am. Urine output increased. Continue ceftriaxone and azithromycin for pulmonary coverage of potential pneumonia. O2 needs decreasing - wean O2 as able, BiPAP at night and during day as needed. 01/17/18 Continue nocturnal and prn BiPAP. Blood cx drawn for last night's fever. Check CXR. Continue ceftriaxone and azithromycin. WBC up slightly. Monitor. SCr continues at 3.6. Will DC Bumex drip and schedule 2 mg iv tid. Continue to monitor SCr. Add lactulose dose and trial of enemas. Doppler of BLE negative for DVT. 01/18/18 Continue nocturnal and prn BiPAP. Blood cx drawn for Friday night's fever show no growth. CXR shows improvement. Continue ceftriaxone and azithromycin. WBC up slightly. Monitor. SCr at 3.5. BUN trending up at 87. Bumex 2 mg iv tid. I/O 2333/2671. Continue to monitor. Bowels moved after lactulose and enema. Increase [place] to 7.5 for pain. BP better today. 01/19/18 Will continue ceftriaxone for pulmonary coverage - can stop azithromycin as course completed. Wean O2 as able. CPAP with O2 at night. Encourage deep breathing/IS for lung exercises. PT/OT to help functional status. Encourage increased activities - up to chair/ ambulate. Bumex 2 mg iv tid. Creatinine and potassium stable. Add PhosLo TID as phosphorus elevated secondary to CKD. Bowels moved after lactulose and enema. C diff negative. Can transfer patient to medical floor for continuation of care. 01/20/18 Continue ceftriaxone for pulmonary coverage. Continue O2 and BiPAP. Encourage breathing activities. PT/OT to help functional status. Encourage increased activities - up to chair/ ambulate. Bumex 2 mg iv tid. Creatinine and potassium stable. Increase atenolol to 50mg BID. Will add prn simethicone to help decrease abdominal cramping and bloating. 01/21 Lengthy discussion about goals to get home. These include weaning down oxygen as she usually does not use daytime oxygen She requests to be off narcotics as this causes fatigue. We will resume home in regimen including Tylenol 1000 milligrams in the morning , 1000 milligrams afternoon, and Tylenol PM at that time. Will leave tramadol for severe breakthrough pain as needed. Otherwise, discontinue IV morphine and [place]. Continue ceftriaxone for pulmonary coverage. Continue O2 and BiPAP. Encourage breathing activities. Bumex 2 mg TID for diuresis. Weight is down overall from admission Continue to work with PT/OT for strengthening. She would like to go home with . We discussed concern for weakness and inability to transfer safely. She acknowledges that SNU may be necessary at time of discharge. 01/22 Slight increase in BUN/Creatinine (114/3.3). Had been on Bumex TID and today starts BID dosing. Remains on 7L of oxygen. CXR on my review looks better - radiology report pending. DC Rocephin: 8 day course completed. DC scheduled Accuchecks per pt request. Blood sugars have been showing good control. Offered nasal saline for epistaxis - pt declined. 01/23 Slight increase in BUN though Creatinine is stable (129/3.3). DC IV Bumex and start Lasix 40 mg BID. Velazquez - start bladder retraining now that IV diuretics are stopped. Remains on 7L of oxygen. Encourage therapy. Wean as able. 01/24 Continue Lasix 40mg BID. Encourage deep breathing activities. Nursing able to wean O2 to 2L. Encourage activities and movement to help build strength. Recheck BMP in am due to stage IV CKD and medication use. Will recheck CBC in am due to anemia. 01/25 Patient appears to be intravascularly dry- BUN, Serum osmo quite high. Hold Lasix for today. Acute pulmonary edema resolved. Continue Home BiPAP and O2 for supportive care. Recheck CXR in am. Continue to hold Atenolol for now. Will order PT to help with increasing activity. Very limited due to severe obesity. Velazquez out- check UA for possible infection. BG normal. Continue to monitor. May benefit from HH upon dismissal. 01/26 Marcus RODRIGUEZ'd yesterday evening due to bladder spasms. Lasix held yesterday as she looks intravascularly dry. Weight is down 1.5 kg since yesterday. Continue to hold Lasix for now. Repeat BMP in am. Continues on 2L O2 (only uses at noc at home w/ BiPAP). Acute pulmonary edema resolved. Baseline SCr around 2.0-2.4- Consider limited gentle IV fluids if Cr/BUN not improving with holding Lasix? She has been screened for IRU and is potentially accepted pending insurance. 01/27/2018 Marcus DC'd 01/25/2018 due to bladder spasms. Lasix currently on hold. She does appear to be dry at this time. Discussed with nephrology regarding acute kidney injury We'll discuss with cardiology regarding sinus pauses, bradycardia and questionable V. tach. Beta blockers on hold for now. Continues on 2L O2 (only uses at noc at home w/ BiPAP). Acute pulmonary edema resolved. Increase activity as tolerated with physical therapy and occupational therapy. I would recommend inpatient rehabilitation, awaiting final decision from the patient's insurance company.
[2018-01-28] MEDS: TRAMADOL 50 MG TABLET PO PRN (17:29)
[2018-01-28] MEDS: APAP/DIPHENHYDRAMINE 500 MG/25 MG TABLET PO SCH (21:19)
[2018-01-29] MEDS: ACETAMINOPHEN 500 MG TABLET PO SCH ×2 (06:49→13:43)
[2018-01-29] MEDS: LINACLOTIDE 145 MCG CAPSULE PO SCH (06:50)
[2018-01-29] MEDS: AMLODIPINE 10 MG TABLET PO SCH (09:38)
[2018-01-29] MEDS: ASPIRIN *EC* 81 MG TABLET PO SCH ×2 (09:38→21:25)
[2018-01-29] MEDS: ENOXAPARIN 40 MG/0.4 ML INJECTION SQ SCH (09:39)
[2018-01-29] MEDS: POLYETHYL GLYCOL 3350 17gm PACKET PO SCH (09:39)
[2018-01-29] MEDS: ONDANSETRON 4 MG/2 ML INJECTION IVP PRN (12:46)
--- NOTE | 2018-01-29 13:05 | Progress Note ---
- Date 01/29/18 Subjective: The patient was seen this afternoon in her room. She just had a bowel movement and felt nauseated. She states this is not unusual for her to feel nauseated after having a bowel movement. She denies any shortness of breath. She has chronic knee pain but no pain elsewhere. She has no other complaints. Objective Vital signs: Temperature 96.4 F L 01/29/18 07:46 Pulse Rate 95 01/29/18 09:15 Respiratory Rate 20 01/29/18 09:15 Blood Pressure 114/64 01/29/18 09:15 Pulse Oximetry 94 01/29/18 12:03 Rhythm: Normal Sinus Rhythm Height/Weight/BMI: Height 1.7 m Weight 171.3 kg Body Mass Index 60.2 Comments: Afebrile, heart rate mostly in the 70s. Oxygen saturation is in the 90s on 2 L high flow nasal cannula. Blood pressure today sitting was 140/85 with heart rate of 79 and standing blood pressure was 114/64 with heart rate of 95 Urine output has not been measured well because of multiple bouts of incontinence of urine. Weight is 171.3 kg up 1.8 kg from yesterday. Telemetry shows no bradycardia or pauses. Occasional PVCs seen GEN-alert, oriented, no acute distress CV-regular rate and rhythm, no bradycardia reported CHEST-clear to auscultation bilaterally ABD-soft, obese, nontender with positive bowel sounds -no Velazquez EXT-no edema NEURO-no focal deficits SKIN-warm and dry Results - Labs CBC & Chem 7: 01/27/18 04:41 01/29/18 04:01 Labs: 25 hydroxy vitamin D is low at 6 normal is 30-100 Calcium is normal at 8.8. Phosphorus is mildly elevated at 4.9. Microbiology Results: Microbiology 01/16/18 22:17 Midline Blood Culture - Final No Growth After 5 Days 01/16/18 22:15 Midline Blood Culture - Final No Growth After 5 Days Assessment and Plan (1) Acute respiratory failure Current visit: Yes Status: Acute Assessment and Plan: Impression Acute respiratory failure with hypoxia-slowly improving and tolerating home BiPAP Acute pulmonary edema -resolved on chest x-ray 01/26/2018 Suspect pneumonia - clinically resolved Acute kidney injury on top of chronic kidney disease Stage 4 CKD The patient appears clinically dry. BUN is slowly improving with rehydration. The patient is still orthostatic Hyperkalemia (POA) - resolved Leukocytosis (POA) resolved Hyperphosphatemia secondary to CKD-resolved on PhosLo -PhosLo discontinued on Hypercalcemia-resolved post IV fluids. Elevated PTH-? Secondary hyperparathyroidism Vitamin D deficiency with 25 hydroxy vitamin D level of 6 Hypertension -fair control -she is currently off of atenolol due to bradycardia Type II DM -hemoglobin A1c 6.7-Pfvy-Clglt were monitored for the first week of the patient's stay and were mostly within range out treatment. Accu-Cheks were then discontinued. Hypercholesterolemia Diastolic heart failure - chronic Obstructive of sleep apnea with obesity hypoventilation syndrome - home BiPAP with O2 at night Chronic back pain Morbid obesity - BMI 62 Bradycardia with pauses-resolved since holding atenolol Plan Discussed with Dr. Rod Taylor, will give half-normal saline at 100 and hour 2 L and recheck BUN and creatinine. He stated he would want to get her BUN down to around 70 and hopefully creatinine down to 2.7. At some point she may need to restart her home Lasix but he would not give hydrochlorothiazide. We'll reevaluate renal panel tomorrow. Recheck CBC tomorrow. Start vitamin D 1000 international units daily. Will not give high-dose vitamin D replacement because of the patient's tendency for hypercalcemia. Hypernatremia is better after half-normal saline. Continue to monitor off of atenolol. Case management is working with family on discharge planning. They would like to go to IRU and are planning an appeal of insurance company denial. Titrate oxygen as able. Continue BiPAP at night. DVT Prophylaxis: Lovenox Resuscitation Status: Do Not Resuscitate - Physician Narrative Narrative: Date: 01/29/18 Time: 1251 Hospital Course Summary Disclaimer: The visit summary below is not to be considered part of the above Progress Note. Hospital Course: 01/14/18 Inpatient Admission to CCU Admit patient to inpatient status under care of Dr. Garcia for acute respiratory failure with hypoxia and pulmonary edema. Continue on BiPAP given respiratory distress. Patient is chronically on Lasix 40 milligrams daily. She was given 20 milligrams IV 1 in the emergency room. She also takes hydrochlorothiazide 50 milligrams daily. Will need to use caution with diuresing given acute renal injury. Will obtain a renal sonogram given acute kidney injury. Other etiology of hypoxia could be pulmonary emboli, however, given renal function, we are unable to give patient IV contrast at this time. Will cover with Lovenox 30 milligrams twice a day for prophylaxis. He recommendations as per pharmacy report. BMI greater than 40 prophylaxis dosing is recommended 30 BID rather than 40 mg daily. Due to known history of congestive heart failure. Will obtain echocardiogram for further cardiac evaluation. TSH, magnesium for laboratory completeness. Monitor Accu-Cheks routinely and obtain a hemoglobin A1c. At time of discharge medical care will return to primary care provider, Tevin SAUCEDO with [facility]. 01/15/18 Renal status/blood pressure stable - seeing increase urine output with Bumex drip. Repeat CXR with little change - ? underlying pneumonia. With continued leukocytosis will add azithromycin 500mg IV daily to currently scheduled daily ceftriaxone. Needing O2 at 6L - uses bipap intermittently. Renal sonogram showing no hydronephrosis. Blood sugars stable. Place PICC line secondary to poor IV access. Recheck BMP in am secondary to BINU and medications use. Will recheck CBC in am due to leukocytosis. Will continue with CCU care for close monitoring of cardiopulmonary status. 01/16/18 Will obtain Doppler tests lower ext due to pain and swelling to R/O DVT. Recheck BMP to monitor renal status as seeing increase to 3.6 this am. Urine output increased. Continue ceftriaxone and azithromycin for pulmonary coverage of potential pneumonia. O2 needs decreasing - wean O2 as able, BiPAP at night and during day as needed. 01/17/18 Continue nocturnal and prn BiPAP. Blood cx drawn for last night's fever. Check CXR. Continue ceftriaxone and azithromycin. WBC up slightly. Monitor. SCr continues at 3.6. Will DC Bumex drip and schedule 2 mg iv tid. Continue to monitor SCr. Add lactulose dose and trial of enemas. Doppler of BLE negative for DVT. 01/18/18 Continue nocturnal and prn BiPAP. Blood cx drawn for Friday night's fever show no growth. CXR shows improvement. Continue ceftriaxone and azithromycin. WBC up slightly. Monitor. SCr at 3.5. BUN trending up at 87. Bumex 2 mg iv tid. I/O 2333/2671. Continue to monitor. Bowels moved after lactulose and enema. Increase [place] to 7.5 for pain. BP better today. 01/19/18 Will continue ceftriaxone for pulmonary coverage - can stop azithromycin as course completed. Wean O2 as able. CPAP with O2 at night. Encourage deep breathing/IS for lung exercises. PT/OT to help functional status. Encourage increased activities - up to chair/ ambulate. Bumex 2 mg iv tid. Creatinine and potassium stable. Add PhosLo TID as phosphorus elevated secondary to CKD. Bowels moved after lactulose and enema. C diff negative. Can transfer patient to medical floor for continuation of care. 01/20/18 Continue ceftriaxone for pulmonary coverage. Continue O2 and BiPAP. Encourage breathing activities. PT/OT to help functional status. Encourage increased activities - up to chair/ ambulate. Bumex 2 mg iv tid. Creatinine and potassium stable. Increase atenolol to 50mg BID. Will add prn simethicone to help decrease abdominal cramping and bloating. 01/21 Lengthy discussion about goals to get home. These include weaning down oxygen as she usually does not use daytime oxygen She requests to be off narcotics as this causes fatigue. We will resume home in regimen including Tylenol 1000 milligrams in the morning , 1000 milligrams afternoon, and Tylenol PM at that time. Will leave tramadol for severe breakthrough pain as needed. Otherwise, discontinue IV morphine and [place]. Continue ceftriaxone for pulmonary coverage. Continue O2 and BiPAP. Encourage breathing activities. Bumex 2 mg TID for diuresis. Weight is down overall from admission Continue to work with PT/OT for strengthening. She would like to go home with . We discussed concern for weakness and inability to transfer safely. She acknowledges that SNU may be necessary at time of discharge. 01/22 Slight increase in BUN/Creatinine (114/3.3). Had been on Bumex TID and today starts BID dosing. Remains on 7L of oxygen. CXR on my review looks better - radiology report pending. DC Rocephin: 8 day course completed. DC scheduled Accuchecks per pt request. Blood sugars have been showing good control. Offered nasal saline for epistaxis - pt declined. 01/23 Slight increase in BUN though Creatinine is stable (129/3.3). DC IV Bumex and start Lasix 40 mg BID. Velazquez - start bladder retraining now that IV diuretics are stopped. Remains on 7L of oxygen. Encourage therapy. Wean as able. 01/24 Continue Lasix 40mg BID. Encourage deep breathing activities. Nursing able to wean O2 to 2L. Encourage activities and movement to help build strength. Recheck BMP in am due to stage IV CKD and medication use. Will recheck CBC in am due to anemia. 01/25 Patient appears to be intravascularly dry- BUN, Serum osmo quite high. Hold Lasix for today. Acute pulmonary edema resolved. Continue Home BiPAP and O2 for supportive care. Recheck CXR in am. Continue to hold Atenolol for now. Will order PT to help with increasing activity. Very limited due to severe obesity. Velazquez out- check UA for possible infection. BG normal. Continue to monitor. May benefit from HH upon dismissal. 01/26 Velazquez DC'd yesterday evening due to bladder spasms. Lasix held yesterday as she looks intravascularly dry. Weight is down 1.5 kg since yesterday. Continue to hold Lasix for now. Repeat BMP in am. Continues on 2L O2 (only uses at noc at home w/ BiPAP). Acute pulmonary edema resolved. Baseline SCr around 2.0-2.4- Consider limited gentle IV fluids if Cr/BUN not improving with holding Lasix? She has been screened for IRU and is potentially accepted pending insurance. 01/27/2018 Marcus DC'd 01/25/2018 due to bladder spasms. Lasix currently on hold. She does appear to be dry at this time. Discussed with nephrology regarding acute kidney injury We'll discuss with cardiology regarding sinus pauses, bradycardia and questionable V. tach. Beta blockers on hold for now. Continues on 2L O2 (only uses at noc at home w/ BiPAP). Acute pulmonary edema resolved. Increase activity as tolerated with physical therapy and occupational therapy. I would recommend inpatient rehabilitation, awaiting final decision from the patient's insurance company. 01/28/2018 Plan The patient was given 1 L of normal saline over 10 hours yesterday because she appeared dry. BUN and creatinine have not changed significantly today. Hypercalcemia however has resolved. Will give 1 L of half-normal saline today over 10 hours. She does have mild hypernatremia today with sodium of 146. We'll try Aspercreme once daily prior to physical therapy for knee pain. Continue to monitor on telemetry off of atenolol. Titrate O2 as tolerated. I did turn her down to 1.5 L this afternoon. Awaiting final decision from patient's insurance company regarding possible inpatient rehabilitation. I think inpatient rehabilitation would be in the best interest of the patient for continued therapy and strengthening while monitoring her tenuous kidney function and diastolic heart failure.
[2018-01-29] MEDS: 1/2 NS 1,000 ML IV SCH (13:44)
--- NOTE | 2018-01-29 18:18 | Cardiology Progress Note ---
<Montse Valenzuela M - Last Filed: 01/30/18 12:59> Subjective Principal diagnosis: sinus pause Interval history: Sully is seen in follow up for bradycardia. She is laying in bed with her spouse at the bedside. She asks again what we are doing for A Fib. Explained because of her [place] she needs chronic anticoagulation to prevent stroke. She denies chest pain, palpitations. Exam Vital signs: Temperature 96.3 F L 01/29/18 15:11 Pulse Rate 72 01/29/18 15:11 Respiratory Rate 20 01/29/18 15:11 Blood Pressure 126/57 01/29/18 15:11 Pulse Oximetry 90 01/29/18 16:15 Inpatient Medications: Generic Name Dose Route Start Last Admin Trade Name Freq PRN Reason Stop Dose Admin Acetaminophen 1,000 mg 01/21/18 14:00 01/29/18 13:43 Tylenol PO 1,000 mg [id number] MYNOR Administration Acetaminophen/Diphenhydramine HCl 2 tab 01/14/18 21:00 01/28/18 21:19 Tylenol Pm PO 2 tab HS MYNOR Administration Amlodipine Besylate 10 mg 01/15/18 09:00 01/29/18 09:38 Norvasc PO 10 mg DAILY MYNOR Administration Apixaban 2.5 mg 01/29/18 21:00 Eliquis PO BID MYNOR Aspirin 162 mg 01/14/18 21:00 01/29/18 09:38 Ecotrin PO 162 mg BID MYNOR Administration Atenolol 50 mg 01/20/18 21:00 01/26/18 21:18 Tenormin PO 50 mg BID MYNOR Administration Bisacodyl 10 mg 01/14/18 17:56 01/16/18 17:30 Dulcolax RECTALLY 10 mg DAILY PRN Administration Constipation Cholecalciferol 1,000 unit 01/30/18 09:00 Vit. D-3 PO DAILY MYNOR Furosemide 40 mg 01/26/18 09:00 01/26/18 08:17 Lasix 40 Mg Tab PO Not Given DAILY MYNOR Hydralazine HCl 10 mg 01/17/18 23:41 01/18/18 06:03 Apresoline IVP 10 mg Q6H PRN Administration SBP > 180 mm Hg Sodium Chloride 1,000 mls @ 100 mls/hr 01/29/18 13:15 01/29/18 13:44 1/2 Normal Saline IV 01/30/18 09:14 100 mls/hr .Q10H MYNOR Administration Linaclotide 145 mcg 01/23/18 07:30 01/29/18 06:50 Linzess PO 145 mcg 0730 MYNOR Administration Lorazepam 0.5 mg 01/14/18 17:56 01/25/18 22:31 Ativan Inj IVP 0.5 mg Q4H PRN Administration Anxiety/Air hunger/Agitation Ondansetron HCl 4 mg 01/14/18 22:45 01/29/18 12:46 Zofran IVP 4 mg Q4H PRN Administration Nausea &/or vomiting Polyethylene Glycol 17 gm 01/16/18 09:00 01/29/18 09:39 Miralax PO 17 gm DAILY MYNOR Administration Senna/Docusate Sodium 1 tab 01/14/18 17:56 01/19/18 20:51 Senna Plus Tablet PO 1 tab BID PRN Administration Constipation Sodium Chloride 10 - 80 ml 01/14/18 15:35 01/27/18 12:36 Iv Flush IVF 10 ml PRN PRN Administration Flushing Tramadol HCl 50 mg 01/21/18 13:55 01/28/18 17:29 Ultram PO 50 mg Q6H PRN Administration Pain Trolamine Salicylate 1 applic 01/28/18 15:40 Aspercreme TOP PRN PRN Discontinued Medications Generic Name Dose Route Start Last Admin Trade Name Freq PRN Reason Stop Dose Admin Acetaminophen 650 mg 01/15/18 10:49 01/20/18 16:09 Tylenol PO 650 mg Q5H PRN Administration Pain Acetaminophen 1,300 mg 01/20/18 21:00 01/21/18 09:28 Tylenol Arthritis PO 1,300 mg BID MYNOR Administration Hydrocodone Bitart/Acetaminophen 1 tab 01/14/18 17:56 01/18/18 09:31 Sanford 5/325 PO 1 tab Q6H PRN Administration Pain Hydrocodone Bitart/Acetaminophen 1 tab 01/18/18 15:25 01/20/18 10:20 Sanford 7.5/325 PO 1 tab Q6H PRN Administration Pain Albuterol/Ipratropium 3 ml 01/14/18 15:39 01/14/18 15:44 Duoneb AEROSOL 01/14/18 15:40 3 ml O ONE Administration Amlodipine Besylate 5 mg 01/18/18 00:54 01/18/18 01:00 Norvasc PO 01/18/18 00:55 5 mg O ONE Administration Atenolol 25 mg 01/17/18 21:00 01/20/18 09:20 Tenormin PO 25 mg BID MYNOR Administration Bumetanide 2 mg 01/17/18 15:00 01/21/18 16:05 Bumex 1 Mg/4 Ml Inj. IVP 2 mg TID MYNOR Administration Bumetanide 2 mg 01/21/18 21:00 01/23/18 10:36 Bumex 1 Mg/4 Ml Inj. IVP Not Given BID MYNOR Calcium Acetate 1,334 mg 01/19/18 12:00 01/27/18 14:43 Phoslo PO 1,334 mg TIDWM MYNOR Administration Enoxaparin Sodium 30 mg 01/14/18 21:00 01/22/18 08:50 Lovenox SQ 30 mg BID MYNOR Administration Enoxaparin Sodium 30 mg 01/23/18 09:00 Lovenox SQ DAILY MYNOR Enoxaparin Sodium 40 mg 01/23/18 09:00 01/29/18 09:39 Lovenox SQ 40 mg DAILY MYNOR Administration Furosemide 20 mg 01/14/18 17:17 01/14/18 17:51 Lasix 20 Mg/2 Ml IVP 01/14/18 17:18 20 mg O ONE Administration Furosemide 40 mg 01/23/18 17:00 01/25/18 09:03 Lasix 40 Mg Tab PO 40 mg 0900,1700 MYNOR Administration Ceftriaxone Sodium 1 gm/ 100 mls @ 200 mls/hr 01/14/18 17:17 01/14/18 17:56 Sodium Chloride IV 01/14/18 17:46 200 mls/hr O ONE Administration Bumetanide 25 mg/ IV Solution 100 mls @ 2 mls/hr 01/14/18 17:56 01/17/18 11: 00 IV Infused Q24H MYNOR Infusion Ceftriaxone Sodium 1 g/ Sodium 100 mls @ 200 mls/hr 01/15/18 09:00 01/22/18 09:27 Chloride IV Infused DAILY MYNOR Infusion Sodium Chloride 500 mls @ 20 mls/hr 01/15/18 06:20 01/15/18 10:21 Normal Saline IV Not Given .Q24H MYNOR Sodium Chloride 500 mls @ 20 mls/hr 01/14/18 20:00 01/18/18 21:40 Normal Saline IV Not Given .Q24H MYNOR Azithromycin 500 mg/ Sodium 250 mls @ 167 mls/hr 01/15/18 09:30 01/19/18 11: 09 Chloride IV Infused Q24H MYNOR Infusion Sodium Chloride 1,000 mls @ 100 mls/hr 01/27/18 12:15 01/27/18 22:40 Normal Saline IV 01/27/18 22:14 Infused .Q10H MYNOR Infusion Sodium Chloride 1,000 mls @ 100 mls/hr 01/28/18 15:45 01/29/18 03:31 1/2 Normal Saline IV 01/29/18 01:44 Infused .Q10H MYNOR Infusion Lactulose 20 gm 01/17/18 09:56 01/17/18 11:46 Lactulose PO 01/17/18 09:57 20 gm O ONE Administration Linaclotide 145 mcg 01/20/18 09:00 01/22/18 08:49 Linzess PO 145 mcg DAILY MYNOR Administration Melatonin 3 mg 01/22/18 02:23 01/22/18 02:29 Melatonin PO 01/22/18 02:24 3 mg ONE TIME ONE Administration Mineral Oil 1 enema 01/17/18 09:56 01/17/18 10:37 Fleet Mineral Oil Enema [place] 01/17/18 09:57 1 enema O ONE Administration Morphine Sulfate 2 mg 01/14/18 17:56 01/15/18 16:14 Morphine Sulfate Inj IVP 2 mg Q2HR PRN Administration Pain /Air hunger Morphine Sulfate 2 mg 01/15/18 16:15 01/20/18 04:36 Morphine Sulfate Inj IVP 2 mg Q2H PRN Administration Pain /Air hunger Morphine Sulfate 4 mg 01/17/18 02:43 01/17/18 02:49 Morphine Sulfate Inj IVP 01/17/18 02:44 4 mg O ONE Administration Pharmacy Consult 1 each 01/14/18 19:33 Pharmacy Consult - Fall Risk XX 01/14/18 19:34 ONE TIME ONE Pharmacy Consult 1 each 01/24/18 18:05 Pharmacy Consult - Fall Risk MC 01/24/18 18:06 ONE TIME ONE Pneumococcal 7-Valent Conj Vacc 0.5 ml 01/15/18 12:08 01/15/18 12:42 Prevnar 13 IM 01/15/18 12:09 0.5 ml .ONCE ONE Administration Polyethylene Glycol 17 gm 01/15/18 09:00 01/15/18 10:21 Miralax PO Not Given DAILY MYNOR Tramadol HCl 50 mg 01/14/18 17:56 Ultram PO BID PRN Pain - Constitutional no acute distress, morbidly obese, cooperative - Routine HEENT Exam Head: Present: normocephalic ENT: Present: mucous membranes moist - Routine Neck Exam Absent: JVD, carotid bruit - Routine Chest/Breast/Axilla Exam Chest wall: Absent: tenderness - Routine Respiratory Exam Present: CTA bilaterally. Absent: rales, wheezes - Routine Cardiovascular Exam Present: RRR, no murmur - Routine Abdominal Exam Present: soft, non tender - Routine Skin Exam Present: intact, dry, warm - Routine Neurological Exam Present: alert, oriented X3 - Routine Psychiatric Exam Present: normal affect, normal thought process - Urinary Catheter Management Straight Cath placed during this visit: yes, but has since been removed by the nurse Insertion date: 01/14/18 Insertion time: 19:15 Removal date: 01/25/18 Removal time: 10:19 Results 01/30/18 04:44 01/30/18 04:44 Comprehensive Metabolic Panel 01/29/18 Range/Units 04:01 Sodium 144 (134-144) MEQ/L Potassium 4.4 (3.6-5) MEQ/L Chloride 105 (98-107) MEQ/L Carbon Dioxide 26 (22-30) MEQ/L BUN 100.0 H* (7-17) MG/DL Creatinine 3.0 H (0.7-1.2) mg/dL Glucose 115 H (65-110) MG/DL Calcium 8.8 D (8.4-10.2) MG/DL Albumin 3.7 (3.5-5.0) g/dL Intake and Output 01/29/18 01/29/18 01/29/18 06:59 14:59 22:59 Intake Total 1350 / 1350 718 / 718 Output Total 350 / 350 200 / 200 Balance 1000 / 1000 518 / 518 Intake: IV 1000 / 1000 1/2 Ns 1,000 ml @ 100 mls/hr IV 1000 / 1000 .Q10H MYNOR Rx#:[id number] Oral 350 / 350 718 / 718 Output: Urine Amount (Catheter) 350 / 350 200 / 200 Other: Urine Appearance Clear Clear Clear Urine Color Yellow Yellow Yellow Urine Odor Normal Stool Color Brown Brown Stool Consistency Formed Formed Liquid Liquid Size of Bowel Movement Moderate Moderate # Voids 1 1 1 # Bowel Movements 1 1 Weight 377 lb 10.429 oz Patient Weight 01/30/18 06:59 Weight 377 lb 10.429 oz Assessment and Plan - Assessment and Plan (1) Sinus arrest Current visit: Yes Status: Acute (2) Chronic kidney disease Current visit: Yes Status: Chronic (3) Congestive heart failure Problem details: Diastolic Current visit: Yes Status: Chronic (4) Essential (primary) hypertension Current visit: Yes Status: Chronic (5) Mixed hyperlipidemia Current visit: Yes Status: Chronic (6) Morbid obesity with BMI of 50.0-59.9, adult Current visit: Yes Status: Chronic (7) PAF (paroxysmal atrial fibrillation) Current visit: Yes Status: Acute Start Eliquis 2.5mg BID - Assessment and Plan 01/27/18 Sinus arrest: 3.1 second pauses. - Likely caused by vagal response to activity/ pain - Hold Atenolol - Continue to monitor telemetry Chronic kidney disease BUN 110/ Scr 3.0 - Seen by - Does not want hemodialysis. Congestive heart failure Problem details: Diastolic BNP 1880 from 4350 Essential (primary) hypertension Continue Amlodipine Mixed hyperlipidemia Morbid obesity with BMI of 50.0-59.9, adult 01/28/18 Discussed plan with patient to watch for anymore bradycardia then will decide on treatment of A Fib since it was not persistent. 01/29/18 Start Eliquis 2.5mg BID for stroke prevention - Continue to monitor cardiac telemetry - Monitor HGB and platelets Hospital Course Summary Disclaimer: The visit summary below is not to be considered part of the above Progress Note. Hospital Course: 01/14/18 Inpatient Admission to CCU Admit patient to inpatient status under care of Dr. Garcia for acute respiratory failure with hypoxia and pulmonary edema. Continue on BiPAP given respiratory distress. Patient is chronically on Lasix 40 milligrams daily. She was given 20 milligrams IV 1 in the emergency room. She also takes hydrochlorothiazide 50 milligrams daily. Will need to use caution with diuresing given acute renal injury. Will obtain a renal sonogram given acute kidney injury. Other etiology of hypoxia could be pulmonary emboli, however, given renal function, we are unable to give patient IV contrast at this time. Will cover with Lovenox 30 milligrams twice a day for prophylaxis. He recommendations as per pharmacy report. BMI greater than 40 prophylaxis dosing is recommended 30 BID rather than 40 mg daily. Due to known history of congestive heart failure. Will obtain echocardiogram for further cardiac evaluation. TSH, magnesium for laboratory completeness. Monitor Accu-Cheks routinely and obtain a hemoglobin A1c. At time of discharge medical care will return to primary care provider, Tevin SAUCEDO with [facility]. 01/15/18 Renal status/blood pressure stable - seeing increase urine output with Bumex drip. Repeat CXR with little change - ? underlying pneumonia. With continued leukocytosis will add azithromycin 500mg IV daily to currently scheduled daily ceftriaxone. Needing O2 at 6L - uses bipap intermittently. Renal sonogram showing no hydronephrosis. Blood sugars stable. Place PICC line secondary to poor IV access. Recheck BMP in am secondary to BINU and medications use. Will recheck CBC in am due to leukocytosis. Will continue with CCU care for close monitoring of cardiopulmonary status. 01/16/18 Will obtain Doppler tests lower ext due to pain and swelling to R/O DVT. Recheck BMP to monitor renal status as seeing increase to 3.6 this am. Urine output increased. Continue ceftriaxone and azithromycin for pulmonary coverage of potential pneumonia. O2 needs decreasing - wean O2 as able, BiPAP at night and during day as needed. 01/17/18 Continue nocturnal and prn BiPAP. Blood cx drawn for last night's fever. Check CXR. Continue ceftriaxone and azithromycin. WBC up slightly. Monitor. SCr continues at 3.6. Will DC Bumex drip and schedule 2 mg iv tid. Continue to monitor SCr. Add lactulose dose and trial of enemas. Doppler of BLE negative for DVT. 01/18/18 Continue nocturnal and prn BiPAP. Blood cx drawn for Friday night's fever show no growth. CXR shows improvement. Continue ceftriaxone and azithromycin. WBC up slightly. Monitor. SCr at 3.5. BUN trending up at 87. Bumex 2 mg iv tid. I/O 2333/2671. Continue to monitor. Bowels moved after lactulose and enema. Increase Sanford to 7.5 for pain. BP better today. 01/19/18 Will continue ceftriaxone for pulmonary coverage - can stop azithromycin as course completed. Wean O2 as able. CPAP with O2 at night. Encourage deep breathing/IS for lung exercises. PT/OT to help functional status. Encourage increased activities - up to chair/ ambulate. Bumex 2 mg iv tid. Creatinine and potassium stable. Add PhosLo TID as phosphorus elevated secondary to CKD. Bowels moved after lactulose and enema. C diff negative. Can transfer patient to medical floor for continuation of care. 01/20/18 Continue ceftriaxone for pulmonary coverage. Continue O2 and BiPAP. Encourage breathing activities. PT/OT to help functional status. Encourage increased activities - up to chair/ ambulate. Bumex 2 mg iv tid. Creatinine and potassium stable. Increase atenolol to 50mg BID. Will add prn simethicone to help decrease abdominal cramping and bloating. 01/21 Lengthy discussion about goals to get home. These include weaning down oxygen as she usually does not use daytime oxygen She requests to be off narcotics as this causes fatigue. We will resume home in regimen including Tylenol 1000 milligrams in the morning , 1000 milligrams afternoon, and Tylenol PM at that time. Will leave tramadol for severe breakthrough pain as needed. Otherwise, discontinue IV morphine and Sanford. Continue ceftriaxone for pulmonary coverage. Continue O2 and BiPAP. Encourage breathing activities. Bumex 2 mg TID for diuresis. Weight is down overall from admission Continue to work with PT/OT for strengthening. She would like to go home with . We discussed concern for weakness and inability to transfer safely. She acknowledges that SNU may be necessary at time of discharge. 01/22 Slight increase in BUN/Creatinine (114/3.3). Had been on Bumex TID and today starts BID dosing. Remains on 7L of oxygen. CXR on my review looks better - radiology report pending. DC Rocephin: 8 day course completed. DC scheduled Accuchecks per pt request. Blood sugars have been showing good control. Offered nasal saline for epistaxis - pt declined. 01/23 Slight increase in BUN though Creatinine is stable (129/3.3). DC IV Bumex and start Lasix 40 mg BID. Velazquez - start bladder retraining now that IV diuretics are stopped. Remains on 7L of oxygen. Encourage therapy. Wean as able. 01/24 Continue Lasix 40mg BID. Encourage deep breathing activities. Nursing able to wean O2 to 2L. Encourage activities and movement to help build strength. Recheck BMP in am due to stage IV CKD and medication use. Will recheck CBC in am due to anemia. 01/25 Patient appears to be intravascularly dry- BUN, Serum osmo quite high. Hold Lasix for today. Acute pulmonary edema resolved. Continue Home BiPAP and O2 for supportive care. Recheck CXR in am. Continue to hold Atenolol for now. Will order PT to help with increasing activity. Very limited due to severe obesity. Velazquez out- check UA for possible infection. BG normal. Continue to monitor. May benefit from HH upon dismissal. 01/26 Velazquez DC'd yesterday evening due to bladder spasms. Lasix held yesterday as she looks intravascularly dry. Weight is down 1.5 kg since yesterday. Continue to hold Lasix for now. Repeat BMP in am. Continues on 2L O2 (only uses at noc at home w/ BiPAP). Acute pulmonary edema resolved. Baseline SCr around 2.0-2.4- Consider limited gentle IV fluids if Cr/BUN not improving with holding Lasix? She has been screened for IRU and is potentially accepted pending insurance. <Spencer Johnson - Last Filed: 02/02/18 16:31> Exam Vital signs: Temperature 97.9 F 02/02/18 15:55 Pulse Rate 93 02/02/18 15:55 Respiratory Rate 16 02/02/18 15:55 Blood Pressure 154/66 H 02/02/18 15:55 Pulse Oximetry 92 02/02/18 15:55 Inpatient Medications: Generic Name Dose Route Start Last Admin Trade Name Freq PRN Reason Stop Dose Admin Acetaminophen 1,000 mg 01/21/18 14:00 02/02/18 16:23 Tylenol PO Not Given [id number] MYNOR Acetaminophen/Diphenhydramine HCl 2 tab 01/14/18 21:00 02/01/18 20:43 Tylenol Pm PO 2 tab HS MYNOR Administration Hydrocodone Bitart/Acetaminophen 1 tab 02/01/18 10:52 02/02/18 09:23 Sanford 5/325 PO 1 tab Q4H PRN Administration Pain Apixaban 2.5 mg 01/29/18 21:00 02/02/18 08:08 Eliquis PO 2.5 mg BID MYNOR Administration Aspirin 162 mg 01/14/18 21:00 02/02/18 08:08 Ecotrin PO 162 mg BID MYNOR Administration Atenolol 50 mg 01/20/18 21:00 01/26/18 21:18 Tenormin PO 50 mg BID MYNOR Administration Cholecalciferol 1,000 unit 01/30/18 09:00 02/02/18 08:08 Vit. D-3 PO 1,000 unit DAILY MYNOR Administration Furosemide 40 mg 01/26/18 09:00 02/02/18 08:08 Lasix 40 Mg Tab PO 40 mg DAILY MYNOR Administration Linaclotide 145 mcg 01/23/18 07:30 02/02/18 08:08 Linzess PO 145 mcg 0730 MYNOR Administration Nifedipine 60 mg 02/03/18 09:00 Procardia Xl PO DAILY MYNOR Ondansetron HCl 4 mg 01/14/18 22:45 02/02/18 14:51 Zofran IVP 4 mg Q4H PRN Administration Nausea &/or vomiting Polyethylene Glycol 17 gm 01/16/18 09:00 02/02/18 08:08 Miralax PO 17 gm DAILY MYNOR Administration Senna/Docusate Sodium 1 tab 01/14/18 17:56 01/29/18 21:24 Senna Plus Tablet PO 1 tab BID PRN Administration Constipation Sodium Chloride 10 - 80 ml 01/14/18 15:35 01/27/18 12:36 Iv Flush IVF 10 ml PRN PRN Administration Flushing Trolamine Salicylate 1 applic 01/28/18 15:40 Aspercreme TOP PRN PRN Discontinued Medications Generic Name Dose Route Start Last Admin Trade Name Freq PRN Reason Stop Dose Admin Acetaminophen 650 mg 01/15/18 10:49 01/20/18 16:09 Tylenol PO 650 mg Q5H PRN Administration Pain Acetaminophen 1,300 mg 01/20/18 21:00 01/21/18 09:28 Tylenol Arthritis PO 1,300 mg BID MYNOR Administration Hydrocodone Bitart/Acetaminophen 1 tab 01/14/18 17:56 01/18/18 09:31 Sanford 5/325 PO 1 tab Q6H PRN Administration Pain Hydrocodone Bitart/Acetaminophen 1 tab 01/18/18 15:25 01/20/18 10:20 Sanford 7.5/325 PO 1 tab Q6H PRN Administration Pain Albuterol/Ipratropium 3 ml 01/14/18 15:39 01/14/18 15:44 Duoneb AEROSOL 01/14/18 15:40 3 ml O ONE Administration Amlodipine Besylate 10 mg 01/15/18 09:00 02/02/18 08:08 Norvasc PO 10 mg DAILY MYNOR Administration Amlodipine Besylate 5 mg 01/18/18 00:54 01/18/18 01:00 Norvasc PO 01/18/18 00:55 5 mg O ONE Administration Atenolol 25 mg 01/17/18 21:00 01/20/18 09:20 Tenormin PO 25 mg BID MYNOR Administration Bisacodyl 10 mg 01/14/18 17:56 01/16/18 17:30 Dulcolax RECTALLY 10 mg DAILY PRN Administration Constipation Bumetanide 2 mg 01/17/18 15:00 01/21/18 16:05 Bumex 1 Mg/4 Ml Inj. IVP 2 mg TID MYNOR Administration Bumetanide 2 mg 01/21/18 21:00 01/23/18 10:36 Bumex 1 Mg/4 Ml Inj. IVP Not Given BID [facility] Calcium Acetate 1,334 mg 01/19/18 12:00 01/27/18 14:43 Phoslo PO 1,334 mg TIDWM MYNOR Administration Enoxaparin Sodium 30 mg 01/14/18 21:00 01/22/18 08:50 Lovenox SQ 30 mg BID MYNOR Administration Enoxaparin Sodium 30 mg 01/23/18 09:00 Lovenox SQ DAILY MYNOR Enoxaparin Sodium 40 mg 01/23/18 09:00 01/29/18 09:39 Lovenox SQ 40 mg DAILY MYNOR Administration Furosemide 20 mg 01/14/18 17:17 01/14/18 17:51 Lasix 20 Mg/2 Ml IVP 01/14/18 17:18 20 mg O ONE Administration Furosemide 40 mg 01/23/18 17:00 01/25/18 09:03 Lasix 40 Mg Tab PO 40 mg 0900,1700 MYNOR Administration Furosemide 40 mg 02/01/18 11:02 02/01/18 11:29 Lasix 40 Mg/4 Ml IVP 02/01/18 11:03 40 mg NOW ONE Administration Hydralazine HCl 10 mg 01/17/18 23:41 01/18/18 06:03 Apresoline IVP 10 mg Q6H PRN Administration SBP > 180 mm Hg Ceftriaxone Sodium 1 gm/ 100 mls @ 200 mls/hr 01/14/18 17:17 01/14/18 17:56 Sodium Chloride IV 01/14/18 17:46 200 mls/hr O ONE Administration Bumetanide 25 mg/ IV Solution 100 mls @ 2 mls/hr 01/14/18 17:56 01/17/18 11: 00 IV Infused Q24H MYNOR Infusion Ceftriaxone Sodium 1 g/ Sodium 100 mls @ 200 mls/hr 01/15/18 09:00 01/22/18 09:27 Chloride IV Infused DAILY MYNOR Infusion Sodium Chloride 500 mls @ 20 mls/hr 01/15/18 06:20 01/15/18 10:21 Normal Saline IV Not Given .Q24H MYNOR Sodium Chloride 500 mls @ 20 mls/hr 01/14/18 20:00 01/18/18 21:40 Normal Saline IV Not Given .Q24H MYNOR Azithromycin 500 mg/ Sodium 250 mls @ 167 mls/hr 01/15/18 09:30 01/19/18 11: 09 Chloride IV Infused Q24H MYNOR Infusion Sodium Chloride 1,000 mls @ 100 mls/hr 01/27/18 12:15 01/27/18 22:40 Normal Saline IV 01/27/18 22:14 Infused .Q10H MYNOR Infusion Sodium Chloride 1,000 mls @ 100 mls/hr 01/28/18 15:45 01/29/18 03:31 1/2 Normal Saline IV 01/29/18 01:44 Infused .Q10H MYNOR Infusion Sodium Chloride 1,000 mls @ 100 mls/hr 01/29/18 13:15 01/30/18 10:30 1/2 Normal Saline IV 01/30/18 09:14 Infused .Q10H MYNOR Infusion Dextrose/Sodium Chloride 1,000 mls @ 100 mls/hr 01/30/18 11:15 01/30/18 22:30 D5-1/4ns IV 01/30/18 21:14 Infused .Q10H MYNOR Infusion Lactulose 20 gm 01/17/18 09:56 01/17/18 11:46 Lactulose PO 01/17/18 09:57 20 gm O ONE Administration Linaclotide 145 mcg 01/20/18 09:00 01/22/18 08:49 Linzess PO 145 mcg DAILY MYNOR Administration Lorazepam 0.5 mg 01/14/18 17:56 01/25/18 22:31 Ativan Inj IVP 0.5 mg Q4H PRN Administration Anxiety/Air hunger/Agitation Melatonin 3 mg 01/22/18 02:23 01/22/18 02:29 Melatonin PO 01/22/18 02:24 3 mg ONE TIME ONE Administration Mineral Oil 1 enema 01/17/18 09:56 01/17/18 10:37 Fleet Mineral Oil Enema [place] 01/17/18 09:57 1 enema O ONE Administration Morphine Sulfate 2 mg 01/14/18 17:56 01/15/18 16:14 Morphine Sulfate Inj IVP 2 mg Q2HR PRN Administration Pain /Air hunger Morphine Sulfate 2 mg 01/15/18 16:15 01/20/18 04:36 Morphine Sulfate Inj IVP 2 mg Q2H PRN Administration Pain /Air hunger Morphine Sulfate 4 mg 01/17/18 02:43 01/17/18 02:49 Morphine Sulfate Inj IVP 01/17/18 02:44 4 mg O ONE Administration Pharmacy Consult 1 each 01/14/18 19:33 Pharmacy Consult - Fall Risk XX 01/14/18 19:34 ONE TIME ONE Pharmacy Consult 1 each 01/24/18 18:05 Pharmacy Consult - Fall Risk MC 01/24/18 18:06 ONE TIME ONE Pneumococcal 7-Valent Conj Vacc 0.5 ml 01/15/18 12:08 01/15/18 12:42 Prevnar 13 IM 01/15/18 12:09 0.5 ml .ONCE ONE Administration Polyethylene Glycol 17 gm 01/15/18 09:00 01/15/18 10:21 Miralax PO Not Given DAILY MYNOR Tramadol HCl 50 mg 01/14/18 17:56 Ultram PO BID PRN Pain Tramadol HCl 50 mg 01/21/18 13:55 02/01/18 03:13 Ultram PO 50 mg Q6H PRN Administration Pain - Urinary Catheter Management Straight Cath placed during this visit: no Results 02/02/18 04:22 02/02/18 04:22 CBC 02/02/18 Range/Units 04:22 WBC 8.0 (4.5-11.0) T/MM3 RBC 3.70 L (4.00-5.20) M/MM3 Hgb 11.0 L (12-16) GM/DL Hct 35.4 L (36-46) % Plt Count 269 (130-400) T/MM3 Comprehensive Metabolic Panel 02/02/18 Range/Units 04:22 Sodium 148 H (134-144) MEQ/L Potassium 4.1 (3.6-5) MEQ/L Chloride 111 H (98-107) MEQ/L Carbon Dioxide 25 (22-30) MEQ/L BUN 54.0 H* (7-17) MG/DL Creatinine 2.4 H (0.7-1.2) mg/dL Glucose 120 H (65-110) MG/DL Calcium 9.1 (8.4-10.2) MG/DL Albumin 3.9 (3.5-5.0) g/dL Intake and Output 02/02/18 02/02/18 02/02/18 06:59 14:59 22:59 Intake Total 150 / 150 540 / 540 Balance 150 / 150 540 / 540 Intake: Oral 150 / 150 540 / 540 Other: Stool Color Brown Stool Consistency Formed Liquid Size of Bowel Movement Moderate # Voids 1 1 # Bowel Movements 1 Weight 169 kg Patient Weight 02/03/18 06:59 Weight 169 kg Assessment and Plan - Assessment and Plan (1) Congestive heart failure Problem details: Diastolic Current visit: Yes Status: Chronic (2) Sinus arrest Current visit: Yes Status: Acute (3) Chronic kidney disease Current visit: Yes Status: Chronic (4) Essential (primary) hypertension Current visit: Yes Status: Chronic (5) Mixed hyperlipidemia Current visit: Yes Status: Chronic (6) Morbid obesity with BMI of 50.0-59.9, adult Current visit: Yes Status: Chronic (7) PAF (paroxysmal atrial fibrillation) Current visit: Yes Status: Acute - Attestation Attestation Narrative: 02/02/18 16:31 Recommendation After examining the patient I agree with the above assessment. I am involved in the formulation of the patient's plan of care. Hospital Course Summary Disclaimer: The visit summary below is not to be considered part of the above Progress Note.
[2018-01-29] MEDS: APAP/DIPHENHYDRAMINE 500 MG/25 MG TABLET PO SCH (21:24)
[2018-01-29] MEDS: SENNA + DOCUSATE TABLET PO PRN (21:24)
[2018-01-29] MEDS: APIXABAN 2.5 MG TABLET PO SCH (21:25)
[2018-01-30] MEDS: 1/2 NS 1,000 ML IV SCH (00:28)
[2018-01-30] MEDS: APIXABAN 2.5 MG TABLET PO SCH ×2 (08:39→21:35)
[2018-01-30] MEDS: ACETAMINOPHEN 500 MG TABLET PO SCH ×2 (08:39→13:56)
[2018-01-30] MEDS: LINACLOTIDE 145 MCG CAPSULE PO SCH (08:39)
[2018-01-30] MEDS: ASPIRIN *EC* 81 MG TABLET PO SCH ×2 (08:39→21:30)
[2018-01-30] MEDS: POLYETHYL GLYCOL 3350 17gm PACKET PO SCH (08:39)
[2018-01-30] MEDS: AMLODIPINE 10 MG TABLET PO SCH (08:40)
--- NOTE | 2018-01-30 11:07 | Progress Note ---
- Date 01/30/18 Subjective: The patient was seen this morning in her room accompanied by her . She was able to get up into the chair today with a lift. She states that she feels weaker during this hospitalization than she ever has in the past. Her insurance company denied her going to [facility]. She and her have made an appeal. She states she is feeling okay today. She felt a little lightheaded when she first sat up on the side of the bed and is not feeling lightheaded now sitting up in a chair. She is eating and drinking okay. She denies any shortness of breath. She's currently on 2 L of oxygen. At home she is on room air during the day and on 2 L of oxygen with BiPAP at night. She denies any chest pains or palpitations. She feels like her arms are swollen but there is no pitting. The patient states she felt cold and chilled overnight and this morning. She states this is not normal for her. She denies any urinary frequency, burning or back pain that is typical for her with the UTI. Objective Vital signs: Temperature 96.2 F L 01/30/18 07:24 Pulse Rate 68 01/30/18 07:24 Respiratory Rate 18 01/30/18 07:24 Blood Pressure 154/67 H 01/30/18 07:24 Pulse Oximetry 94 01/30/18 10:32 Rhythm: Normal Sinus Rhythm Height/Weight/BMI: Height 1.7 m Weight 171.4 kg Body Mass Index 60.2 Comments: Blood pressure 154/67, O2 sat 93% on 2 L, heart rate 68, respirations 18 I&O yesterday 3518/550+ She had multiple episodes of urinary incontinence yesterday. GEN-alert, oriented, no acute distress CV-regular rate and rhythm CHEST-clear to auscultation bilaterally ABD-soft, obese, nontender with positive bowel sounds -no Velazquez EXT-no edema in the arms or legs NEURO-alert, oriented, no focal deficits SKIN-warm and dry Results - Labs CBC & Chem 7: 01/30/18 04:44 01/30/18 04:44 Labs: Calcium is normal at 8.6. Phosphorus is mildly elevated at 5.2. Immature granulocytes are mildly elevated at 1.6. Basic metabolic profile specimen is hemolyzed Microbiology Results: Microbiology 01/16/18 22:17 Midline Blood Culture - Final No Growth After 5 Days 01/16/18 22:15 Midline Blood Culture - Final No Growth After 5 Days Assessment and Plan (1) Acute respiratory failure Current visit: Yes Status: Acute Assessment and Plan: Impression Acute respiratory failure with hypoxia-slowly improving and tolerating home BiPAP (at home she was on room air during the day and 2 L of oxygen with BiPAP at night) Acute pulmonary edema (POA)-resolved on chest x-ray 01/26/2018 Suspect pneumonia - clinically resolved Acute kidney injury on top of chronic kidney disease Stage 4 CKD After diuresis, the patient currently appears clinically dry. BUN is slowly improving with rehydration. Hyperkalemia (POA) - resolved Leukocytosis (POA) resolved Hyperphosphatemia secondary to CKD-resolved on PhosLo -PhosLo discontinued on by recommendation of nephrology Hypercalcemia-resolved post IV fluids. Elevated PTH-? Secondary hyperparathyroidism Vitamin D deficiency with 25 hydroxy vitamin D level of 6 -1000 international units of vitamin D started this hospitalization Hypertension -fair control -she is currently off of atenolol due to bradycardia Type II DM -hemoglobin A1c 6.1-Mxfl-Yycjs were monitored for the first week of the patient's stay and were mostly within range out treatment. Accu-Cheks were then discontinued. Hypercholesterolemia Diastolic heart failure - chronic Obstructive of sleep apnea with obesity hypoventilation syndrome - home BiPAP with O2 at night Chronic back pain Morbid obesity - BMI 62 Bradycardia with pauses-resolved since holding atenolol Paroxysmal atrial fibrillation-Eliquis started 01/29/2018 Plan The patient is starting to make improvement in her acute kidney injury on chronic kidney disease. BUN is now 92 down from 100. Creatinine is 2.6 down from 3.0. She did receive 2 L of half-normal saline yesterday. Sodium is up to 147. With IV fluids, she has not developed edema or worsening hypoxia. We'll 1 L of fluid today and recheck renal panel tomorrow. Continue to monitor for signs of fluid overload. Hopefully the patient's insurance company will approve inpatient rehabilitation. If not, the patient will likely require senior care at discharge for strengthening. With her tenuous fluid status, she is not ready for dismissal at this time. Continue to titrate oxygen as able. Regarding chills, will check a manual differential on CBC today. Continue off of atenolol and monitor for bradycardia, pauses, etc. on telemetry. Discussed plans today with the patient, her , her nurse and case management DVT Prophylaxis: Lambert Resuscitation Status: Do Not Resuscitate - Physician Narrative Narrative: Date: 01/30/18 Time: 1102 Hospital Course Summary Disclaimer: The visit summary below is not to be considered part of the above Progress Note. Hospital Course: 01/14/18 Inpatient Admission to CCU Admit patient to inpatient status under care of Dr. Garcia for acute respiratory failure with hypoxia and pulmonary edema. Continue on BiPAP given respiratory distress. Patient is chronically on Lasix 40 milligrams daily. She was given 20 milligrams IV 1 in the emergency room. She also takes hydrochlorothiazide 50 milligrams daily. Will need to use caution with diuresing given acute renal injury. Will obtain a renal sonogram given acute kidney injury. Other etiology of hypoxia could be pulmonary emboli, however, given renal function, we are unable to give patient IV contrast at this time. Will cover with Lovenox 30 milligrams twice a day for prophylaxis. He recommendations as per pharmacy report. BMI greater than 40 prophylaxis dosing is recommended 30 BID rather than 40 mg daily. Due to known history of congestive heart failure. Will obtain echocardiogram for further cardiac evaluation. TSH, magnesium for laboratory completeness. Monitor Accu-Cheks routinely and obtain a hemoglobin A1c. At time of discharge medical care will return to primary care provider, Tevin SAUCEDO with [facility]. 01/15/18 Renal status/blood pressure stable - seeing increase urine output with Bumex drip. Repeat CXR with little change - ? underlying pneumonia. With continued leukocytosis will add azithromycin 500mg IV daily to currently scheduled daily ceftriaxone. Needing O2 at 6L - uses bipap intermittently. Renal sonogram showing no hydronephrosis. Blood sugars stable. Place PICC line secondary to poor IV access. Recheck BMP in am secondary to BINU and medications use. Will recheck CBC in am due to leukocytosis. Will continue with CCU care for close monitoring of cardiopulmonary status. 01/16/18 Will obtain Doppler tests lower ext due to pain and swelling to R/O DVT. Recheck BMP to monitor renal status as seeing increase to 3.6 this am. Urine output increased. Continue ceftriaxone and azithromycin for pulmonary coverage of potential pneumonia. O2 needs decreasing - wean O2 as able, BiPAP at night and during day as needed. 01/17/18 Continue nocturnal and prn BiPAP. Blood cx drawn for last night's fever. Check CXR. Continue ceftriaxone and azithromycin. WBC up slightly. Monitor. SCr continues at 3.6. Will DC Bumex drip and schedule 2 mg iv tid. Continue to monitor SCr. Add lactulose dose and trial of enemas. Doppler of BLE negative for DVT. 01/18/18 Continue nocturnal and prn BiPAP. Blood cx drawn for Friday night's fever show no growth. CXR shows improvement. Continue ceftriaxone and azithromycin. WBC up slightly. Monitor. SCr at 3.5. BUN trending up at 87. Bumex 2 mg iv tid. I/O 2333/2671. Continue to monitor. Bowels moved after lactulose and enema. Increase [place] to 7.5 for pain. BP better today. 01/19/18 Will continue ceftriaxone for pulmonary coverage - can stop azithromycin as course completed. Wean O2 as able. CPAP with O2 at night. Encourage deep breathing/IS for lung exercises. PT/OT to help functional status. Encourage increased activities - up to chair/ ambulate. Bumex 2 mg iv tid. Creatinine and potassium stable. Add PhosLo TID as phosphorus elevated secondary to CKD. Bowels moved after lactulose and enema. C diff negative. Can transfer patient to medical floor for continuation of care. 01/20/18 Continue ceftriaxone for pulmonary coverage. Continue O2 and BiPAP. Encourage breathing activities. PT/OT to help functional status. Encourage increased activities - up to chair/ ambulate. Bumex 2 mg iv tid. Creatinine and potassium stable. Increase atenolol to 50mg BID. Will add prn simethicone to help decrease abdominal cramping and bloating. 01/21 Lengthy discussion about goals to get home. These include weaning down oxygen as she usually does not use daytime oxygen She requests to be off narcotics as this causes fatigue. We will resume home in regimen including Tylenol 1000 milligrams in the morning , 1000 milligrams afternoon, and Tylenol PM at that time. Will leave tramadol for severe breakthrough pain as needed. Otherwise, discontinue IV morphine and [place]. Continue ceftriaxone for pulmonary coverage. Continue O2 and BiPAP. Encourage breathing activities. Bumex 2 mg TID for diuresis. Weight is down overall from admission Continue to work with PT/OT for strengthening. She would like to go home with . We discussed concern for weakness and inability to transfer safely. She acknowledges that SNU may be necessary at time of discharge. 01/22 Slight increase in BUN/Creatinine (114/3.3). Had been on Bumex TID and today starts BID dosing. Remains on 7L of oxygen. CXR on my review looks better - radiology report pending. DC Rocephin: 8 day course completed. DC scheduled Accuchecks per pt request. Blood sugars have been showing good control. Offered nasal saline for epistaxis - pt declined. 01/23 Slight increase in BUN though Creatinine is stable (129/3.3). DC IV Bumex and start Lasix 40 mg BID. Velazquez - start bladder retraining now that IV diuretics are stopped. Remains on 7L of oxygen. Encourage therapy. Wean as able. 01/24 Continue Lasix 40mg BID. Encourage deep breathing activities. Nursing able to wean O2 to 2L. Encourage activities and movement to help build strength. Recheck BMP in am due to stage IV CKD and medication use. Will recheck CBC in am due to anemia. 01/25 Patient appears to be intravascularly dry- BUN, Serum osmo quite high. Hold Lasix for today. Acute pulmonary edema resolved. Continue Home BiPAP and O2 for supportive care. Recheck CXR in am. Continue to hold Atenolol for now. Will order PT to help with increasing activity. Very limited due to severe obesity. Velazquez out- check UA for possible infection. BG normal. Continue to monitor. May benefit from HH upon dismissal. 01/26 Velazquez DC'd yesterday evening due to bladder spasms. Lasix held yesterday as she looks intravascularly dry. Weight is down 1.5 kg since yesterday. Continue to hold Lasix for now. Repeat BMP in am. Continues on 2L O2 (only uses at noc at home w/ BiPAP). Acute pulmonary edema resolved. Baseline SCr around 2.0-2.4- Consider limited gentle IV fluids if Cr/BUN not improving with holding Lasix? She has been screened for IRU and is potentially accepted pending insurance.
[2018-01-30] MEDS ORDERED: D5 IV SCH (11:15)
[2018-01-30] MEDS ORDERED: [UNRECOGNIZED DRUG - OTHER] IV SCH (11:15)
--- NOTE | 2018-01-30 17:15 | Cardiology Progress Note ---
<Montse Valenzuela M - Last Filed: 01/30/18 17:11> Subjective Principal diagnosis: sinus pause Interval history: Sully is seen in follow up for bradycardia. She is laying in bed, in no distress. Had 4 beats of V Tach on telemetry, no symptoms. She denies chest pain , palpitations. Exam Vital signs: Temperature 96.4 F L 01/30/18 16:14 Pulse Rate 77 01/30/18 16:14 Respiratory Rate 18 01/30/18 16:14 Blood Pressure 143/69 H 01/30/18 16:14 Pulse Oximetry 91 01/30/18 16:14 Inpatient Medications: Generic Name Dose Route Start Last Admin Trade Name Freq PRN Reason Stop Dose Admin Acetaminophen 1,000 mg 01/21/18 14:00 01/30/18 13:56 Tylenol PO 1,000 mg [id number] MYNOR Administration Acetaminophen/Diphenhydramine HCl 2 tab 01/14/18 21:00 01/29/18 21:24 Tylenol Pm PO 2 tab HS MYNOR Administration Amlodipine Besylate 10 mg 01/15/18 09:00 01/30/18 08:40 Norvasc PO 10 mg DAILY MYNOR Administration Apixaban 2.5 mg 01/29/18 21:00 01/30/18 08:39 Eliquis PO 2.5 mg BID MYNOR Administration Aspirin 162 mg 01/14/18 21:00 01/30/18 08:39 Ecotrin PO 162 mg BID MYNOR Administration Atenolol 50 mg 01/20/18 21:00 01/26/18 21:18 Tenormin PO 50 mg BID MYNOR Administration Bisacodyl 10 mg 01/14/18 17:56 01/16/18 17:30 Dulcolax RECTALLY 10 mg DAILY PRN Administration Constipation Cholecalciferol 1,000 unit 01/30/18 09:00 01/30/18 08:39 Vit. D-3 PO 1,000 unit DAILY MYNOR Administration Furosemide 40 mg 01/26/18 09:00 01/26/18 08:17 Lasix 40 Mg Tab PO Not Given DAILY MYNOR Hydralazine HCl 10 mg 01/17/18 23:41 01/18/18 06:03 Apresoline IVP 10 mg Q6H PRN Administration SBP > 180 mm Hg Dextrose/Sodium Chloride 1,000 mls @ 100 mls/hr 01/30/18 11:15 01/30/18 12:02 D5-1/4ns IV 01/30/18 21:14 100 mls/hr .Q10H MYNOR Administration Linaclotide 145 mcg 01/23/18 07:30 01/30/18 08:39 Linzess PO 145 mcg 0730 MYNOR Administration Lorazepam 0.5 mg 01/14/18 17:56 01/25/18 22:31 Ativan Inj IVP 0.5 mg Q4H PRN Administration Anxiety/Air hunger/Agitation Ondansetron HCl 4 mg 01/14/18 22:45 01/29/18 12:46 Zofran IVP 4 mg Q4H PRN Administration Nausea &/or vomiting Polyethylene Glycol 17 gm 01/16/18 09:00 01/30/18 08:39 Miralax PO 17 gm DAILY MYNOR Administration Senna/Docusate Sodium 1 tab 01/14/18 17:56 01/29/18 21:24 Senna Plus Tablet PO 1 tab BID PRN Administration Constipation Sodium Chloride 10 - 80 ml 01/14/18 15:35 01/27/18 12:36 Iv Flush IVF 10 ml PRN PRN Administration Flushing Tramadol HCl 50 mg 01/21/18 13:55 01/28/18 17:29 Ultram PO 50 mg Q6H PRN Administration Pain Trolamine Salicylate 1 applic 01/28/18 15:40 Aspercreme TOP PRN PRN Discontinued Medications Generic Name Dose Route Start Last Admin Trade Name Freq PRN Reason Stop Dose Admin Acetaminophen 650 mg 01/15/18 10:49 01/20/18 16:09 Tylenol PO 650 mg Q5H PRN Administration Pain Acetaminophen 1,300 mg 01/20/18 21:00 01/21/18 09:28 Tylenol Arthritis PO 1,300 mg BID MYNOR Administration Hydrocodone Bitart/Acetaminophen 1 tab 01/14/18 17:56 01/18/18 09:31 Slick 5/325 PO 1 tab Q6H PRN Administration Pain Hydrocodone Bitart/Acetaminophen 1 tab 01/18/18 15:25 01/20/18 10:20 Slick 7.5/325 PO 1 tab Q6H PRN Administration Pain Albuterol/Ipratropium 3 ml 01/14/18 15:39 01/14/18 15:44 Duoneb AEROSOL 01/14/18 15:40 3 ml O ONE Administration Amlodipine Besylate 5 mg 01/18/18 00:54 01/18/18 01:00 Norvasc PO 01/18/18 00:55 5 mg O ONE Administration Atenolol 25 mg 01/17/18 21:00 01/20/18 09:20 Tenormin PO 25 mg BID MYNOR Administration Bumetanide 2 mg 01/17/18 15:00 01/21/18 16:05 Bumex 1 Mg/4 Ml Inj. IVP 2 mg TID MYNOR Administration Bumetanide 2 mg 01/21/18 21:00 01/23/18 10:36 Bumex 1 Mg/4 Ml Inj. IVP Not Given BID MYNOR Calcium Acetate 1,334 mg 01/19/18 12:00 01/27/18 14:43 Phoslo PO 1,334 mg TIDWM MYNOR Administration Enoxaparin Sodium 30 mg 01/14/18 21:00 01/22/18 08:50 Lovenox SQ 30 mg BID MYNOR Administration Enoxaparin Sodium 30 mg 01/23/18 09:00 Lovenox SQ DAILY MYNOR Enoxaparin Sodium 40 mg 01/23/18 09:00 01/29/18 09:39 Lovenox SQ 40 mg DAILY MYNOR Administration Furosemide 20 mg 01/14/18 17:17 01/14/18 17:51 Lasix 20 Mg/2 Ml IVP 01/14/18 17:18 20 mg O ONE Administration Furosemide 40 mg 01/23/18 17:00 01/25/18 09:03 Lasix 40 Mg Tab PO 40 mg 0900,1700 MYNOR Administration Ceftriaxone Sodium 1 gm/ 100 mls @ 200 mls/hr 01/14/18 17:17 01/14/18 17:56 Sodium Chloride IV 01/14/18 17:46 200 mls/hr O ONE Administration Bumetanide 25 mg/ IV Solution 100 mls @ 2 mls/hr 01/14/18 17:56 01/17/18 11: 00 IV Infused Q24H MYNOR Infusion Ceftriaxone Sodium 1 g/ Sodium 100 mls @ 200 mls/hr 01/15/18 09:00 01/22/18 09:27 Chloride IV Infused DAILY MYNOR Infusion Sodium Chloride 500 mls @ 20 mls/hr 01/15/18 06:20 01/15/18 10:21 Normal Saline IV Not Given .Q24H MYNOR Sodium Chloride 500 mls @ 20 mls/hr 01/14/18 20:00 01/18/18 21:40 Normal Saline IV Not Given .Q24H MYNOR Azithromycin 500 mg/ Sodium 250 mls @ 167 mls/hr 01/15/18 09:30 01/19/18 11: 09 Chloride IV Infused Q24H MYNOR Infusion Sodium Chloride 1,000 mls @ 100 mls/hr 01/27/18 12:15 01/27/18 22:40 Normal Saline IV 01/27/18 22:14 Infused .Q10H MYNOR Infusion Sodium Chloride 1,000 mls @ 100 mls/hr 01/28/18 15:45 01/29/18 03:31 1/2 Normal Saline IV 01/29/18 01:44 Infused .Q10H MYNOR Infusion Sodium Chloride 1,000 mls @ 100 mls/hr 01/29/18 13:15 01/30/18 10:30 1/2 Normal Saline IV 01/30/18 09:14 Infused .Q10H MYNOR Infusion Lactulose 20 gm 01/17/18 09:56 01/17/18 11:46 Lactulose PO 01/17/18 09:57 20 gm O ONE Administration Linaclotide 145 mcg 01/20/18 09:00 01/22/18 08:49 Linzess PO 145 mcg DAILY MYNOR Administration Melatonin 3 mg 01/22/18 02:23 01/22/18 02:29 Melatonin PO 01/22/18 02:24 3 mg ONE TIME ONE Administration Mineral Oil 1 enema 01/17/18 09:56 01/17/18 10:37 Fleet Mineral Oil Enema PA 01/17/18 09:57 1 enema O ONE Administration Morphine Sulfate 2 mg 01/14/18 17:56 01/15/18 16:14 Morphine Sulfate Inj IVP 2 mg Q2HR PRN Administration Pain /Air hunger Morphine Sulfate 2 mg 01/15/18 16:15 01/20/18 04:36 Morphine Sulfate Inj IVP 2 mg Q2H PRN Administration Pain /Air hunger Morphine Sulfate 4 mg 01/17/18 02:43 01/17/18 02:49 Morphine Sulfate Inj IVP 04/07/18 02:44 4 mg O ONE Administration Pharmacy Consult 1 each 01/14/18 19:33 Pharmacy Consult - Fall Risk XX 01/14/18 19:34 ONE TIME ONE Pharmacy Consult 1 each 01/24/18 18:05 Pharmacy Consult - Fall Risk [facility] 01/24/18 18:06 ONE TIME ONE Pneumococcal 7-Valent Conj Vacc 0.5 ml 01/15/18 12:08 01/15/18 12:42 Prevnar 13 IM 01/15/18 12:09 0.5 ml .ONCE ONE Administration Polyethylene Glycol 17 gm 01/15/18 09:00 01/15/18 10:21 Miralax PO Not Given DAILY MYNOR Tramadol HCl 50 mg 01/14/18 17:56 Ultram PO BID PRN Pain - Constitutional no acute distress, morbidly obese, cooperative - Routine HEENT Exam Head: Present: normocephalic ENT: Present: mucous membranes moist - Routine Neck Exam Absent: JVD, carotid bruit - Routine Chest/Breast/Axilla Exam Chest wall: Absent: tenderness - Routine Respiratory Exam Present: CTA bilaterally, diminished air movement - Routine Cardiovascular Exam Present: RRR, no murmur - Routine Abdominal Exam Present: soft, normoactive bowel sounds - Routine Extremities Exam Present: no edema - Routine Skin Exam Present: intact, dry, warm - Routine Neurological Exam Present: alert, oriented X3 - Routine Psychiatric Exam Present: normal affect, normal thought process - Urinary Catheter Management Straight Cath placed during this visit: yes, but has since been removed by the nurse Insertion date: 01/14/18 Insertion time: 19:15 Removal date: 01/25/18 Removal time: 10:19 Results 01/30/18 04:44 01/30/18 04:44 CBC 01/30/18 Range/Units 04:44 WBC 9.2 (4.5-11.0) T/MM3 RBC 3.59 L (4.00-5.20) M/MM3 Hgb 10.5 L (12-16) GM/DL Hct 34.1 L (36-46) % Plt Count 329 (130-400) T/MM3 Neut # (Auto) Cancelled Lymph # (Auto) Cancelled [place] # (Auto) Cancelled Eos # (Auto) Cancelled Baso # (Auto) Cancelled Comprehensive Metabolic Panel 01/30/18 Range/Units 04:44 Sodium 147 H (134-144) MEQ/L Potassium 4.9 (3.6-5) MEQ/L Chloride 108 H (98-107) MEQ/L Carbon Dioxide 25 (22-30) MEQ/L BUN 92.0 H* (7-17) MG/DL Creatinine 2.6 H D (0.7-1.2) mg/dL Glucose 104 (65-110) MG/DL Calcium 8.6 (8.4-10.2) MG/DL Albumin 3.9 (3.5-5.0) g/dL Intake and Output 01/30/18 01/30/18 01/30/18 06:59 14:59 22:59 Intake Total 1050 / 1050 1810 / 1810 Output Total 400 / 400 Balance 1050 / 1050 1410 / 1410 Intake: IV 1000 / 1000 1000 / 1000 1/2 Ns 1,000 ml @ 100 mls/hr IV 1000 / 1000 1000 / 1000 .Q10H MYNOR Rx#:[id number] Oral 50 / 50 810 / 810 Output: Urine 400 / 400 Other: Urine Appearance Clear Urine Color Yellow Urine Odor Normal Stool Consistency Liquid Size of Bowel Movement Small # Voids 1 1 # Bowel Movements 1 Weight 377 lb 13.957 oz Patient Weight 01/31/18 06:59 Weight 377 lb 13.957 oz Assessment and Plan - Assessment and Plan (1) PAF (paroxysmal atrial fibrillation) Status: Acute (2) Sinus arrest Status: Acute (3) Chronic kidney disease Status: Chronic (4) Congestive heart failure Problem details: Diastolic Status: Chronic (5) Essential (primary) hypertension Status: Chronic (6) Mixed hyperlipidemia Status: Chronic (7) Morbid obesity with BMI of 50.0-59.9, adult Status: Chronic - Assessment and Plan 01/27/18 Sinus arrest: 3.1 second pauses. - Likely caused by vagal response to activity/ pain - Hold Atenolol - Continue to monitor telemetry Chronic kidney disease BUN 110/ Scr 3.0 - Seen by - Does not want hemodialysis. Congestive heart failure Problem details: Diastolic BNP 1880 from 4350 Essential (primary) hypertension Continue Amlodipine Mixed hyperlipidemia Morbid obesity with BMI of 50.0-59.9, adult 01/28/18 Discussed plan with patient to watch for anymore bradycardia then will decide on treatment of A Fib since it was not persistent. 01/29/18 Start Eliquis 2.5mg BID for stroke prevention - Continue to monitor cardiac telemetry - Monitor HGB and platelets 01/30/18 Tolerates Eliquis, monitor for signs of bleeding - SCr 2.6, down from 3.0 - Continue to monitor - Call if cardiac concerns over weekend Hospital Course Summary Disclaimer: The visit summary below is not to be considered part of the above Progress Note. Hospital Course: 01/14/18 Inpatient Admission to CCU Admit patient to inpatient status under care of Dr. Garcia for acute respiratory failure with hypoxia and pulmonary edema. Continue on BiPAP given respiratory distress. Patient is chronically on Lasix 40 milligrams daily. She was given 20 milligrams IV 1 in the emergency room. She also takes hydrochlorothiazide 50 milligrams daily. Will need to use caution with diuresing given acute renal injury. Will obtain a renal sonogram given acute kidney injury. Other etiology of hypoxia could be pulmonary emboli, however, given renal function, we are unable to give patient IV contrast at this time. Will cover with Lovenox 30 milligrams twice a day for prophylaxis. He recommendations as per pharmacy report. BMI greater than 40 prophylaxis dosing is recommended 30 BID rather than 40 mg daily. Due to known history of congestive heart failure. Will obtain echocardiogram for further cardiac evaluation. TSH, magnesium for laboratory completeness. Monitor Accu-Cheks routinely and obtain a hemoglobin A1c. At time of discharge medical care will return to primary care provider, Tevin SAUCEDO with [facility]. 01/15/18 Renal status/blood pressure stable - seeing increase urine output with Bumex drip. Repeat CXR with little change - ? underlying pneumonia. With continued leukocytosis will add azithromycin 500mg IV daily to currently scheduled daily ceftriaxone. Needing O2 at 6L - uses bipap intermittently. Renal sonogram showing no hydronephrosis. Blood sugars stable. Place PICC line secondary to poor IV access. Recheck BMP in am secondary to BINU and medications use. Will recheck CBC in am due to leukocytosis. Will continue with CCU care for close monitoring of cardiopulmonary status. 01/16/18 Will obtain Doppler tests lower ext due to pain and swelling to R/O DVT. Recheck BMP to monitor renal status as seeing increase to 3.6 this am. Urine output increased. Continue ceftriaxone and azithromycin for pulmonary coverage of potential pneumonia. O2 needs decreasing - wean O2 as able, BiPAP at night and during day as needed. 01/17/18 Continue nocturnal and prn BiPAP. Blood cx drawn for last night's fever. Check CXR. Continue ceftriaxone and azithromycin. WBC up slightly. Monitor. SCr continues at 3.6. Will DC Bumex drip and schedule 2 mg iv tid. Continue to monitor SCr. Add lactulose dose and trial of enemas. Doppler of BLE negative for DVT. 01/18/18 Continue nocturnal and prn BiPAP. Blood cx drawn for Friday night's fever show no growth. CXR shows improvement. Continue ceftriaxone and azithromycin. WBC up slightly. Monitor. SCr at 3.5. BUN trending up at 87. Bumex 2 mg iv tid. I/O 2333/2671. Continue to monitor. Bowels moved after lactulose and enema. Increase Slick to 7.5 for pain. BP better today. 01/19/18 Will continue ceftriaxone for pulmonary coverage - can stop azithromycin as course completed. Wean O2 as able. CPAP with O2 at night. Encourage deep breathing/IS for lung exercises. PT/OT to help functional status. Encourage increased activities - up to chair/ ambulate. Bumex 2 mg iv tid. Creatinine and potassium stable. Add PhosLo TID as phosphorus elevated secondary to CKD. Bowels moved after lactulose and enema. C diff negative. Can transfer patient to medical floor for continuation of care. 01/20/18 Continue ceftriaxone for pulmonary coverage. Continue O2 and BiPAP. Encourage breathing activities. PT/OT to help functional status. Encourage increased activities - up to chair/ ambulate. Bumex 2 mg iv tid. Creatinine and potassium stable. Increase atenolol to 50mg BID. Will add prn simethicone to help decrease abdominal cramping and bloating. 01/21 Lengthy discussion about goals to get home. These include weaning down oxygen as she usually does not use daytime oxygen She requests to be off narcotics as this causes fatigue. We will resume home in regimen including Tylenol 1000 milligrams in the morning , 1000 milligrams afternoon, and Tylenol PM at that time. Will leave tramadol for severe breakthrough pain as needed. Otherwise, discontinue IV morphine and Slick. Continue ceftriaxone for pulmonary coverage. Continue O2 and BiPAP. Encourage breathing activities. Bumex 2 mg TID for diuresis. Weight is down overall from admission Continue to work with PT/OT for strengthening. She would like to go home with . We discussed concern for weakness and inability to transfer safely. She acknowledges that SNU may be necessary at time of discharge. 01/22 Slight increase in BUN/Creatinine (114/3.3). Had been on Bumex TID and today starts BID dosing. Remains on 7L of oxygen. CXR on my review looks better - radiology report pending. DC Rocephin: 8 day course completed. DC scheduled Accuchecks per pt request. Blood sugars have been showing good control. Offered nasal saline for epistaxis - pt declined. 01/23 Slight increase in BUN though Creatinine is stable (129/3.3). DC IV Bumex and start Lasix 40 mg BID. Velazquez - start bladder retraining now that IV diuretics are stopped. Remains on 7L of oxygen. Encourage therapy. Wean as able. 01/24 Continue Lasix 40mg BID. Encourage deep breathing activities. Nursing able to wean O2 to 2L. Encourage activities and movement to help build strength. Recheck BMP in am due to stage IV CKD and medication use. Will recheck CBC in am due to anemia. 01/25 Patient appears to be intravascularly dry- BUN, Serum osmo quite high. Hold Lasix for today. Acute pulmonary edema resolved. Continue Home BiPAP and O2 for supportive care. Recheck CXR in am. Continue to hold Atenolol for now. Will order PT to help with increasing activity. Very limited due to severe obesity. Velazquez out- check UA for possible infection. BG normal. Continue to monitor. May benefit from HH upon dismissal. 01/26 Velazquez DC'd yesterday evening due to bladder spasms. Lasix held yesterday as she looks intravascularly dry. Weight is down 1.5 kg since yesterday. Continue to hold Lasix for now. Repeat BMP in am. Continues on 2L O2 (only uses at noc at home w/ BiPAP). Acute pulmonary edema resolved. Baseline SCr around 2.0-2.4- Consider limited gentle IV fluids if Cr/BUN not improving with holding Lasix? She has been screened for IRU and is potentially accepted pending insurance. <Spencer Johnson - Last Filed: 02/03/18 16:10> Exam Vital signs: Temperature 97.3 F 02/03/18 07:00 Pulse Rate 96 02/03/18 08:00 Respiratory Rate 18 02/03/18 07:00 Blood Pressure 153/71 H 02/03/18 07:00 Pulse Oximetry 92 02/03/18 10:24 Inpatient Medications: Discontinued Medications Generic Name Dose Route Start Last Admin Trade Name Freq PRN Reason Stop Dose Admin Acetaminophen 650 mg 01/15/18 10:49 01/20/18 16:09 Tylenol PO 650 mg Q5H PRN Administration Pain Acetaminophen 1,300 mg 01/20/18 21:00 01/21/18 09:28 Tylenol Arthritis PO 1,300 mg BID MYNOR Administration Acetaminophen 1,000 mg 01/21/18 14:00 02/03/18 06:13 Tylenol PO 1,000 mg [id number] MYNOR Administration Acetaminophen/Diphenhydramine HCl 2 tab 01/14/18 21:00 02/02/18 21:19 Tylenol Pm PO 2 tab HS MYNOR Administration Hydrocodone Bitart/Acetaminophen 1 tab 01/14/18 17:56 01/18/18 09:31 Slick 5/325 PO 1 tab Q6H PRN Administration Pain Hydrocodone Bitart/Acetaminophen 1 tab 01/18/18 15:25 01/20/18 10:20 Slick 7.5/325 PO 1 tab Q6H PRN Administration Pain Hydrocodone Bitart/Acetaminophen 1 tab 02/01/18 10:52 02/03/18 12:52 Slick 5/325 PO 1 tab Q4H PRN Administration Pain Albuterol/Ipratropium 3 ml 01/14/18 15:39 01/14/18 15:44 Duoneb AEROSOL 01/14/18 15:40 3 ml O ONE Administration Amiodarone HCl 200 mg 02/09/18 09:00 Pacerone PO DAILY MYNOR Amiodarone HCl 400 mg 02/02/18 21:00 02/03/18 08:57 Pacerone PO 02/08/18 21:00 400 mg BID MYNOR Administration Amlodipine Besylate 10 mg 01/15/18 09:00 02/02/18 08:08 Norvasc PO 10 mg DAILY MYNOR Administration Amlodipine Besylate 5 mg 01/18/18 00:54 01/18/18 01:00 Norvasc PO 01/18/18 00:55 5 mg O ONE Administration Apixaban 2.5 mg 01/29/18 21:00 02/03/18 08:55 Eliquis PO 2.5 mg BID [facility] Administration Aspirin 162 mg 01/14/18 21:00 02/03/18 08:56 Ecotrin PO 162 mg BID MYNOR Administration Atenolol 25 mg 01/17/18 21:00 01/20/18 09:20 Tenormin PO 25 mg BID MYNOR Administration Atenolol 50 mg 01/20/18 21:00 01/26/18 21:18 Tenormin PO 50 mg BID [facility] Administration Bisacodyl 10 mg 01/14/18 17:56 01/16/18 17:30 Dulcolax RECTALLY 10 mg DAILY PRN Administration Constipation Bumetanide 2 mg 01/17/18 15:00 01/21/18 16:05 Bumex 1 Mg/4 Ml Inj. IVP 2 mg TID [facility] Administration Bumetanide 2 mg 01/21/18 21:00 01/23/18 10:36 Bumex 1 Mg/4 Ml Inj. IVP Not Given BID [facility] Calcium Acetate 1,334 mg 01/19/18 12:00 01/27/18 14:43 Phoslo PO 1,334 mg TIDWM [facility] Administration Cholecalciferol 1,000 unit 01/30/18 09:00 02/03/18 08:55 Vit. D-3 PO 1,000 unit DAILY [facility] Administration Enoxaparin Sodium 30 mg 01/14/18 21:00 01/22/18 08:50 Lovenox SQ 30 mg BID [facility] Administration Enoxaparin Sodium 30 mg 01/23/18 09:00 Lovenox SQ DAILY [facility] Enoxaparin Sodium 40 mg 01/23/18 09:00 01/29/18 09:39 Lovenox SQ 40 mg DAILY [facility] Administration Furosemide 20 mg 01/14/18 17:17 01/14/18 17:51 Lasix 20 Mg/2 Ml IVP 01/14/18 17:18 20 mg O ONE Administration Furosemide 40 mg 01/23/18 17:00 01/25/18 09:03 Lasix 40 Mg Tab PO 40 mg 0900,1700 [facility] Administration Furosemide 40 mg 01/26/18 09:00 02/03/18 08:55 Lasix 40 Mg Tab PO 40 mg DAILY MYNOR Administration Furosemide 40 mg 02/01/18 11:02 02/01/18 11:29 Lasix 40 Mg/4 Ml IVP 02/01/18 11:03 40 mg NOW ONE Administration Hydralazine HCl 10 mg 01/17/18 23:41 01/18/18 06:03 Apresoline IVP 10 mg Q6H PRN Administration SBP > 180 mm Hg Ceftriaxone Sodium 1 gm/ 100 mls @ 200 mls/hr 01/14/18 17:17 01/14/18 17:56 Sodium Chloride IV 01/14/18 17:46 200 mls/hr O ONE Administration Bumetanide 25 mg/ IV Solution 100 mls @ 2 mls/hr 01/14/18 17:56 01/17/18 11: 00 IV Infused Q24H MYNOR Infusion Ceftriaxone Sodium 1 g/ Sodium 100 mls @ 200 mls/hr 01/15/18 09:00 01/22/18 09:27 Chloride IV Infused DAILY MYNOR Infusion Sodium Chloride 500 mls @ 20 mls/hr 01/15/18 06:20 01/15/18 10:21 Normal Saline IV Not Given .Q24H MYNOR Sodium Chloride 500 mls @ 20 mls/hr 01/14/18 20:00 01/18/18 21:40 Normal Saline IV Not Given .Q24H MYNOR Azithromycin 500 mg/ Sodium 250 mls @ 167 mls/hr 01/15/18 09:30 01/19/18 11: 09 Chloride IV Infused Q24H MYNOR Infusion Sodium Chloride 1,000 mls @ 100 mls/hr 01/27/18 12:15 01/27/18 22:40 Normal Saline IV 01/27/18 22:14 Infused .Q10H MYNOR Infusion Sodium Chloride 1,000 mls @ 100 mls/hr 01/28/18 15:45 01/29/18 03:31 1/2 Normal Saline IV 01/29/18 01:44 Infused .Q10H MYNOR Infusion Sodium Chloride 1,000 mls @ 100 mls/hr 01/29/18 13:15 01/30/18 10:30 1/2 Normal Saline IV 01/30/18 09:14 Infused .Q10H MYNOR Infusion Dextrose/Sodium Chloride 1,000 mls @ 100 mls/hr 01/30/18 11:15 01/30/18 22:30 D5-1/4ns IV 01/30/18 21:14 Infused .Q10H MYNOR Infusion Lactulose 20 gm 01/17/18 09:56 01/17/18 11:46 Lactulose PO 01/17/18 09:57 20 gm O ONE Administration Linaclotide 145 mcg 01/20/18 09:00 01/22/18 08:49 Linzess PO 145 mcg DAILY MYNOR Administration Linaclotide 145 mcg 01/23/18 07:30 02/03/18 08:55 Linzess PO 145 mcg 0730 MYNOR Administration Lorazepam 0.5 mg 01/14/18 17:56 01/25/18 22:31 Ativan Inj IVP 0.5 mg Q4H PRN Administration Anxiety/Air hunger/Agitation Melatonin 3 mg 01/22/18 02:23 01/22/18 02:29 Melatonin PO 01/22/18 02:24 3 mg ONE TIME ONE Administration Mineral Oil 1 enema 01/17/18 09:56 01/17/18 10:37 Fleet Mineral Oil Enema PA 01/17/18 09:57 1 enema O ONE Administration Morphine Sulfate 2 mg 01/14/18 17:56 01/15/18 16:14 Morphine Sulfate Inj IVP 2 mg Q2HR PRN Administration Pain /Air hunger Morphine Sulfate 2 mg 01/15/18 16:15 01/20/18 04:36 Morphine Sulfate Inj IVP 2 mg Q2H PRN Administration Pain /Air hunger Morphine Sulfate 4 mg 01/17/18 02:43 01/17/18 02:49 Morphine Sulfate Inj IVP 01/17/18 02:44 4 mg O ONE Administration Nifedipine 60 mg 02/03/18 09:00 02/03/18 08:55 Procardia Xl PO 60 mg DAILY MYNOR Administration Ondansetron HCl 4 mg 01/14/18 22:45 02/02/18 14:51 Zofran IVP 4 mg Q4H PRN Administration Nausea &/or vomiting Pharmacy Consult 1 each 01/14/18 19:33 Pharmacy Consult - Fall Risk XX 01/14/18 19:34 ONE TIME ONE Pharmacy Consult 1 each 01/24/18 18:05 Pharmacy Consult - Fall Risk [facility] 01/24/18 18:06 ONE TIME ONE Pneumococcal 7-Valent Conj Vacc 0.5 ml 01/15/18 12:08 01/15/18 12:42 Prevnar 13 IM 01/15/18 12:09 0.5 ml .ONCE ONE Administration Polyethylene Glycol 17 gm 01/15/18 09:00 01/15/18 10:21 Miralax PO Not Given DAILY MYNOR Polyethylene Glycol 17 gm 01/16/18 09:00 02/03/18 08:56 Miralax PO 17 gm DAILY MYNOR Administration Senna/Docusate Sodium 1 tab 01/14/18 17:56 01/29/18 21:24 Senna Plus Tablet PO 1 tab BID PRN Administration Constipation Sodium Chloride 10 - 80 ml 01/14/18 15:35 01/27/18 12:36 Iv Flush IVF 10 ml PRN PRN Administration Flushing Tramadol HCl 50 mg 01/14/18 17:56 Ultram PO BID PRN Pain Tramadol HCl 50 mg 01/21/18 13:55 02/01/18 03:13 Ultram PO 50 mg Q6H PRN Administration Pain Trolamine Salicylate 1 applic 01/28/18 15:40 Aspercreme TOP PRN PRN - Urinary Catheter Management Straight Cath placed during this visit: no Results 02/02/18 04:22 02/03/18 04:28 Cardiac Enzymes 02/03/18 Range/Units 04:28 AST 29 (14-36) U/L Comprehensive Metabolic Panel 02/03/18 Range/Units 04:28 Sodium 147 H (134-144) MEQ/L Potassium 4.3 (3.6-5) MEQ/L Chloride 109 H (98-107) MEQ/L Carbon Dioxide 26 (22-30) MEQ/L BUN 50.0 H (7-17) MG/DL Creatinine 2.4 H (0.7-1.2) mg/dL Glucose 105 (65-110) MG/DL Calcium 9.2 (8.4-10.2) MG/DL Unconjugated Bilirubin 0.20 (0.00-1.1) mg/dL AST 29 (14-36) U/L ALT 25 (1-35) U/L Alkaline Phosphatase 113 (38-126) U/L Total Protein 7.7 (6.3-8.2) g/dL Albumin 3.9 (3.5-5.0) g/dL Intake and Output 02/03/18 02/03/18 02/03/18 06:59 14:59 22:59 Other: Urine Appearance Clear Urine Color Yellow # Voids 1 1 Weight 169.8 kg Patient Weight 02/04/18 06:59 Weight 169.8 kg Assessment and Plan - Assessment and Plan (1) Congestive heart failure Problem details: Diastolic Status: Chronic (2) Sinus arrest Status: Acute (3) Chronic kidney disease Status: Chronic (4) Essential (primary) hypertension Status: Chronic (5) Mixed hyperlipidemia Status: Chronic (6) Morbid obesity with BMI of 50.0-59.9, adult Status: Chronic (7) PAF (paroxysmal atrial fibrillation) Status: Acute (8) NSVT (nonsustained ventricular tachycardia) Status: Acute - Attestation Attestation Narrative: 02/03/18 16:10 Recommendation After examining the patient I agree with the above assessment. I am involved in the formulation of the patient's plan of care. Hospital Course Summary Disclaimer: The visit summary below is not to be considered part of the above Progress Note.
[2018-01-30] MEDS: APAP/DIPHENHYDRAMINE 500 MG/25 MG TABLET PO SCH (21:33)
[2018-01-31] MEDS: ACETAMINOPHEN 500 MG TABLET PO SCH ×2 (09:39→20:18)
[2018-01-31] MEDS: APIXABAN 2.5 MG TABLET PO SCH ×2 (09:40→21:15)
[2018-01-31] MEDS: ASPIRIN *EC* 81 MG TABLET PO SCH ×2 (09:40→21:15)
[2018-01-31] MEDS: LINACLOTIDE 145 MCG CAPSULE PO SCH (09:40)
[2018-01-31] MEDS: AMLODIPINE 10 MG TABLET PO SCH (09:40)
[2018-01-31] MEDS: POLYETHYL GLYCOL 3350 17gm PACKET PO SCH (09:43)
--- NOTE | 2018-01-31 12:46 | Progress Note ---
- Date 01/31/18 Subjective: Resting comfortably on bipap this morning, denies new complaints. Not able to get up OOB much yesterday but planning to get up today. Breathing is stable. Weights reviewed and stable. Appetite okay. Using some NC 02 during the day. Objective Vital signs: Temperature 97.0 F 01/31/18 09:17 Pulse Rate 82 01/31/18 09:17 Respiratory Rate 18 01/31/18 09:17 Blood Pressure 165/71 H 01/31/18 09:17 Pulse Oximetry 93 01/31/18 11:48 Rhythm: Normal Sinus Rhythm Height/Weight/BMI: Height 1.7 m Weight 171.4 kg Body Mass Index 60.2 - Constitutional Present: no acute distress, obese - Routine HEENT Exam Head: Present: normocephalic, atraumatic Eye: Present: PERRL. Absent: conjunctival icterus ENT: Present: mucous membranes moist, oropharynx clear - Routine Respiratory Exam Present: decreased breath sounds (at the bases bilaterally ), diminished air movement - Routine Cardiovascular Exam Present: RRR. Absent: murmur, rubs - Routine Abdominal Exam Present: soft, non distended, non tender - Routine Extremities Exam Present: edema (with no pitting, mild ) - Routine Skin Exam Present: dry, warm. Absent: rash - Routine Neurological Exam Present: alert, normal speech Results - Labs CBC & Chem 7: 01/31/18 04:22 01/31/18 04:22 Microbiology Results: Microbiology 01/16/18 22:17 Midline Blood Culture - Final No Growth After 5 Days 01/16/18 22:15 Midline Blood Culture - Final No Growth After 5 Days Assessment and Plan Assessment and Plan: Impression Acute respiratory failure with hypoxia-slowly improving and tolerating home BiPAP (at home she was on room air during the day and 2 L of oxygen with BiPAP at night, still requiring some daytime 02 here) Acute pulmonary edema (POA)-resolved on chest x-ray 01/26/2018 Suspect pneumonia - clinically resolved Acute kidney injury on top of chronic kidney disease; improving with cr 2.5 today, diuretics held acutely Stage 4 CKD After diuresis, the patient currently appears clinically dry, po intake poor, continue to hold diuretics today (weight assessed and stable) Hyperkalemia (POA) - resolved Leukocytosis (POA) resolved Hyperphosphatemia secondary to CKD-resolved on PhosLo -PhosLo discontinued on by recommendation of nephrology Hypercalcemia-resolved post IV fluids. Elevated PTH with vit D levels low; renal osteodystrophy, should improve with Vit D replacement Vitamin D deficiency with 25 hydroxy vitamin D level of 6 -1000 international units of vitamin D started this hospitalization Hypertension -fair control -she is currently off of atenolol due to bradycardia Type II DM -hemoglobin A1c 6.6-Pvao-Otite were monitored for the first week of the patient's stay and were mostly within range out treatment. Accu-Cheks were then discontinued. Hypercholesterolemia Diastolic heart failure - chronic Obstructive of sleep apnea with obesity hypoventilation syndrome - home BiPAP with O2 at night Chronic back pain Morbid obesity - BMI 62 Bradycardia with pauses-resolved since holding atenolol Paroxysmal atrial fibrillation-Eliquis started 01/29/2018 Plan The patient is starting to make improvement in her acute kidney injury on chronic kidney disease. --> BUN/Cr improving slowly back to baseline, will hold further IVF and monitor off of diuretics; I don't think she is taking in much po, weights are stable Continue to monitor for signs of fluid overload. Hopefully the patient's insurance company will approve inpatient rehabilitation. If not, the patient will likely require custodial at discharge for strengthening. --> Referrals sent to locations for SNU and are pending With her tenuous fluid status and general debility she is not ready for dismissal at this time. Continue to titrate oxygen as able. Continue off of atenolol and monitor for bradycardia, pauses, etc. on telemetry- -> has been stable. Encourage ambulation; needs to at least be getting up to the chair for meals and only in bed while sleeping. Discussed plans today with the patient, RN, case management. - Physician Narrative Narrative: Date: 01/31/18 Time: 1235 Hospital Course Summary Disclaimer: The visit summary below is not to be considered part of the above Progress Note. Hospital Course: 01/14/18 Inpatient Admission to CCU Admit patient to inpatient status under care of Dr. Garcia for acute respiratory failure with hypoxia and pulmonary edema. Continue on BiPAP given respiratory distress. Patient is chronically on Lasix 40 milligrams daily. She was given 20 milligrams IV 1 in the emergency room. She also takes hydrochlorothiazide 50 milligrams daily. Will need to use caution with diuresing given acute renal injury. Will obtain a renal sonogram given acute kidney injury. Other etiology of hypoxia could be pulmonary emboli, however, given renal function, we are unable to give patient IV contrast at this time. Will cover with Lovenox 30 milligrams twice a day for prophylaxis. He recommendations as per pharmacy report. BMI greater than 40 prophylaxis dosing is recommended 30 BID rather than 40 mg daily. Due to known history of congestive heart failure. Will obtain echocardiogram for further cardiac evaluation. TSH, magnesium for laboratory completeness. Monitor Accu-Cheks routinely and obtain a hemoglobin A1c. At time of discharge medical care will return to primary care provider, Tevin SAUCEDO with [facility]. 01/15/18 Renal status/blood pressure stable - seeing increase urine output with Bumex drip. Repeat CXR with little change - ? underlying pneumonia. With continued leukocytosis will add azithromycin 500mg IV daily to currently scheduled daily ceftriaxone. Needing O2 at 6L - uses bipap intermittently. Renal sonogram showing no hydronephrosis. Blood sugars stable. Place PICC line secondary to poor IV access. Recheck BMP in am secondary to BINU and medications use. Will recheck CBC in am due to leukocytosis. Will continue with CCU care for close monitoring of cardiopulmonary status. 01/16/18 Will obtain Doppler tests lower ext due to pain and swelling to R/O DVT. Recheck BMP to monitor renal status as seeing increase to 3.6 this am. Urine output increased. Continue ceftriaxone and azithromycin for pulmonary coverage of potential pneumonia. O2 needs decreasing - wean O2 as able, BiPAP at night and during day as needed. 01/17/18 Continue nocturnal and prn BiPAP. Blood cx drawn for last night's fever. Check CXR. Continue ceftriaxone and azithromycin. WBC up slightly. Monitor. SCr continues at 3.6. Will DC Bumex drip and schedule 2 mg iv tid. Continue to monitor SCr. Add lactulose dose and trial of enemas. Doppler of BLE negative for DVT. 01/18/18 Continue nocturnal and prn BiPAP. Blood cx drawn for Friday night's fever show no growth. CXR shows improvement. Continue ceftriaxone and azithromycin. WBC up slightly. Monitor. SCr at 3.5. BUN trending up at 87. Bumex 2 mg iv tid. I/O 2333/2671. Continue to monitor. Bowels moved after lactulose and enema. Increase Alleman to 7.5 for pain. BP better today. 01/19/18 Will continue ceftriaxone for pulmonary coverage - can stop azithromycin as course completed. Wean O2 as able. CPAP with O2 at night. Encourage deep breathing/IS for lung exercises. PT/OT to help functional status. Encourage increased activities - up to chair/ ambulate. Bumex 2 mg iv tid. Creatinine and potassium stable. Add PhosLo TID as phosphorus elevated secondary to CKD. Bowels moved after lactulose and enema. C diff negative. Can transfer patient to medical floor for continuation of care. 01/20/18 Continue ceftriaxone for pulmonary coverage. Continue O2 and BiPAP. Encourage breathing activities. PT/OT to help functional status. Encourage increased activities - up to chair/ ambulate. Bumex 2 mg iv tid. Creatinine and potassium stable. Increase atenolol to 50mg BID. Will add prn simethicone to help decrease abdominal cramping and bloating. 01/21 Lengthy discussion about goals to get home. These include weaning down oxygen as she usually does not use daytime oxygen She requests to be off narcotics as this causes fatigue. We will resume home in regimen including Tylenol 1000 milligrams in the morning , 1000 milligrams afternoon, and Tylenol PM at that time. Will leave tramadol for severe breakthrough pain as needed. Otherwise, discontinue IV morphine and Alleman. Continue ceftriaxone for pulmonary coverage. Continue O2 and BiPAP. Encourage breathing activities. Bumex 2 mg TID for diuresis. Weight is down overall from admission Continue to work with PT/OT for strengthening. She would like to go home with . We discussed concern for weakness and inability to transfer safely. She acknowledges that SNU may be necessary at time of discharge. 01/22 Slight increase in BUN/Creatinine (114/3.3). Had been on Bumex TID and today starts BID dosing. Remains on 7L of oxygen. CXR on my review looks better - radiology report pending. JENNIFER Rocephin: 8 day course completed. DC scheduled Accuchecks per pt request. Blood sugars have been showing good control. Offered nasal saline for epistaxis - pt declined. 01/23 Slight increase in BUN though Creatinine is stable (129/3.3). DC IV Bumex and start Lasix 40 mg BID. Velazquez - start bladder retraining now that IV diuretics are stopped. Remains on 7L of oxygen. Encourage therapy. Wean as able. 01/24 Continue Lasix 40mg BID. Encourage deep breathing activities. Nursing able to wean O2 to 2L. Encourage activities and movement to help build strength. Recheck BMP in am due to stage IV CKD and medication use. Will recheck CBC in am due to anemia. 01/25 Patient appears to be intravascularly dry- BUN, Serum osmo quite high. Hold Lasix for today. Acute pulmonary edema resolved. Continue Home BiPAP and O2 for supportive care. Recheck CXR in am. Continue to hold Atenolol for now. Will order PT to help with increasing activity. Very limited due to severe obesity. Velazquez out- check UA for possible infection. BG normal. Continue to monitor. May benefit from HH upon dismissal. 01/26 Velazquez DC'd yesterday evening due to bladder spasms. Lasix held yesterday as she looks intravascularly dry. Weight is down 1.5 kg since yesterday. Continue to hold Lasix for now. Repeat BMP in am. Continues on 2L O2 (only uses at noc at home w/ BiPAP). Acute pulmonary edema resolved. Baseline SCr around 2.0-2.4- Consider limited gentle IV fluids if Cr/BUN not improving with holding Lasix? She has been screened for IRU and is potentially accepted pending insurance. 01/30 The patient is starting to make improvement in her acute kidney injury on chronic kidney disease. --> BUN/Cr improving slowly back to baseline, will hold further IVF and monitor off of diuretics; I don't think she is taking in much po, weights are stable Continue to monitor for signs of fluid overload. Hopefully the patient's insurance company will approve inpatient rehabilitation. If not, the patient will likely require custodial at discharge for strengthening. --> Referrals sent to locations for SNU and are pending With her tenuous fluid status and general debility she is not ready for dismissal at this time. Continue to titrate oxygen as able. Continue off of atenolol and monitor for bradycardia, pauses, etc. on telemetry- -> has been stable. Encourage ambulation; needs to at least be getting up to the chair for meals and only in bed while sleeping. Discussed plans today with the patient, RN, case management.
[2018-01-31] MEDS: APAP/DIPHENHYDRAMINE 500 MG/25 MG TABLET PO SCH (21:14)
[2018-02-01] MEDS: TRAMADOL 50 MG TABLET PO PRN (03:13)
[2018-02-01] MEDS: ACETAMINOPHEN 500 MG TABLET PO SCH (06:30)
--- NOTE | 2018-02-01 10:58 | Progress Note ---
- Date 02/01/18 Subjective: Off of CPAP this morning, on room air. Feels dyspneic, particularly when lying down. Not getting OOB much although she notes she was ambulatory at home prior to this hospitalization. Feels weak. Per nursing, she doesn't want to get up to chair or stay up due to pain in her tailbone and sacrum. Objective Vital signs: Temperature 98.0 F 02/01/18 01:00 Pulse Rate 93 02/01/18 08:29 Respiratory Rate 22 02/01/18 08:29 Blood Pressure 149/73 H 02/01/18 08:29 Pulse Oximetry 91 02/01/18 08:29 Rhythm: Normal Sinus Rhythm Height/Weight/BMI: Height 1.7 m Weight 169.2 kg Body Mass Index 60.2 - Constitutional Present: no acute distress, obese, cooperative - Routine HEENT Exam Head: Present: normocephalic, atraumatic Eye: Present: PERRL. Absent: conjunctival icterus ENT: Present: mucous membranes moist, oropharynx clear - Routine Respiratory Exam Present: decreased breath sounds, distant breath sounds. Absent: rales, respiratory distress, rhonchi - Routine Cardiovascular Exam Present: RRR. Absent: gallop, rubs - Routine Abdominal Exam Present: soft, non distended, non tender - Routine Extremities Exam Present: edema (1+ BLE), pulses intact - Routine Skin Exam Present: dry, warm. Absent: rash - Routine Neurological Exam Present: alert, oriented X3, normal speech - Routine Psychiatric Exam Present: normal affect Results - Labs CBC & Chem 7: 02/01/18 04:59 02/01/18 04:59 Microbiology Results: Microbiology 01/16/18 22:17 Midline Blood Culture - Final No Growth After 5 Days 01/16/18 22:15 Midline Blood Culture - Final No Growth After 5 Days Assessment and Plan Assessment and Plan: Impression Acute respiratory failure with hypoxia-slowly improving and tolerating home BiPAP (at home she was on room air during the day and 2 L of oxygen with BiPAP at night, still requiring some daytime 02 here) Acute pulmonary edema (POA)-resolved on chest x-ray 01/26/2018 Suspect pneumonia - clinically resolved Acute kidney injury on top of chronic kidney disease; improving with cr 2.4 today, diuretics have been held for several days Stage 4 CKD After diuresis, the patient currently appears clinically dry, po intake poor, continue to hold diuretics today (weight assessed and stable) Hyperkalemia (POA) - resolved Leukocytosis (POA) resolved Hyperphosphatemia secondary to CKD-resolved on PhosLo -PhosLo discontinued on by recommendation of nephrology Hypercalcemia-resolved post IV fluids. Elevated PTH with vit D levels low; renal osteodystrophy, should improve with Vit D replacement Vitamin D deficiency with 25 hydroxy vitamin D level of 6 -1000 international units of vitamin D started this hospitalization Hypertension -fair control -she is currently off of atenolol due to bradycardia Type II DM -hemoglobin A1c 6.1-[id number]-[id number] were monitored for the first week of the patient's stay and were mostly within range out treatment. Accu-Cheks were then discontinued. Hypercholesterolemia Diastolic heart failure - chronic Obstructive of sleep apnea with obesity hypoventilation syndrome - home BiPAP with O2 at night Chronic back pain Morbid obesity - BMI 62 Bradycardia with pauses-resolved since holding atenolol Paroxysmal atrial fibrillation-Eliquis started 01/29/2018 Plan BUN/Cr improving slowly back to baseline, will hold further IVF and resume her home dose of lasix 40 mg daily today given increased dyspnea. Hopefully the patient's insurance company will approve inpatient rehabilitation. If not, the patient will likely require fdc at discharge for strengthening. --> Referrals sent to locations for SNU and are still pending With her tenuous fluid status and general debility she is not ready for dismissal at this time. Continue to titrate oxygen as able. Up to chair at last TID today and needs to get OOB as much as possible; added low dose norco to see if that helps her to be more active. Continue off of atenolol and monitor for bradycardia, pauses, etc. on telemetry- -> has been stable. Encourage ambulation; needs to at least be getting up to the chair for meals and only in bed while sleeping. Strict I/Os and daily weights. Monitor labs (renal panel, CBC, Mg) in AM with diuresis. Discussed plans today with the patient, RN. DVT Prophylaxis: Eliquis GI Prophylaxis: Protonix Resuscitation Status: Do Not Resuscitate - Physician Narrative Narrative: Date: 02/01/18 Time: 1054 Hospital Course Summary Disclaimer: The visit summary below is not to be considered part of the above Progress Note. Hospital Course: 01/14/18 Inpatient Admission to CCU Admit patient to inpatient status under care of Dr. Garcia for acute respiratory failure with hypoxia and pulmonary edema. Continue on BiPAP given respiratory distress. Patient is chronically on Lasix 40 milligrams daily. She was given 20 milligrams IV 1 in the emergency room. She also takes hydrochlorothiazide 50 milligrams daily. Will need to use caution with diuresing given acute renal injury. Will obtain a renal sonogram given acute kidney injury. Other etiology of hypoxia could be pulmonary emboli, however, given renal function, we are unable to give patient IV contrast at this time. Will cover with Lovenox 30 milligrams twice a day for prophylaxis. He recommendations as per pharmacy report. BMI greater than 40 prophylaxis dosing is recommended 30 BID rather than 40 mg daily. Due to known history of congestive heart failure. Will obtain echocardiogram for further cardiac evaluation. TSH, magnesium for laboratory completeness. Monitor Accu-Cheks routinely and obtain a hemoglobin A1c. At time of discharge medical care will return to primary care provider, Tevin SAUCEDO with [facility]. 01/15/18 Renal status/blood pressure stable - seeing increase urine output with Bumex drip. Repeat CXR with little change - ? underlying pneumonia. With continued leukocytosis will add azithromycin 500mg IV daily to currently scheduled daily ceftriaxone. Needing O2 at 6L - uses bipap intermittently. Renal sonogram showing no hydronephrosis. Blood sugars stable. Place PICC line secondary to poor IV access. Recheck BMP in am secondary to BINU and medications use. Will recheck CBC in am due to leukocytosis. Will continue with CCU care for close monitoring of cardiopulmonary status. 01/16/18 Will obtain Doppler tests lower ext due to pain and swelling to R/O DVT. Recheck BMP to monitor renal status as seeing increase to 3.6 this am. Urine output increased. Continue ceftriaxone and azithromycin for pulmonary coverage of potential pneumonia. O2 needs decreasing - wean O2 as able, BiPAP at night and during day as needed. 01/17/18 Continue nocturnal and prn BiPAP. Blood cx drawn for last night's fever. Check CXR. Continue ceftriaxone and azithromycin. WBC up slightly. Monitor. SCr continues at 3.6. Will DC Bumex drip and schedule 2 mg iv tid. Continue to monitor SCr. Add lactulose dose and trial of enemas. Doppler of BLE negative for DVT. 01/18/18 Continue nocturnal and prn BiPAP. Blood cx drawn for Friday night's fever show no growth. CXR shows improvement. Continue ceftriaxone and azithromycin. WBC up slightly. Monitor. SCr at 3.5. BUN trending up at 87. Bumex 2 mg iv tid. I/O 2333/2671. Continue to monitor. Bowels moved after lactulose and enema. Increase Winfield to 7.5 for pain. BP better today. 01/19/18 Will continue ceftriaxone for pulmonary coverage - can stop azithromycin as course completed. Wean O2 as able. CPAP with O2 at night. Encourage deep breathing/IS for lung exercises. PT/OT to help functional status. Encourage increased activities - up to chair/ ambulate. Bumex 2 mg iv tid. Creatinine and potassium stable. Add PhosLo TID as phosphorus elevated secondary to CKD. Bowels moved after lactulose and enema. C diff negative. Can transfer patient to medical floor for continuation of care. 01/20/18 Continue ceftriaxone for pulmonary coverage. Continue O2 and BiPAP. Encourage breathing activities. PT/OT to help functional status. Encourage increased activities - up to chair/ ambulate. Bumex 2 mg iv tid. Creatinine and potassium stable. Increase atenolol to 50mg BID. Will add prn simethicone to help decrease abdominal cramping and bloating. 01/21 Lengthy discussion about goals to get home. These include weaning down oxygen as she usually does not use daytime oxygen She requests to be off narcotics as this causes fatigue. We will resume home in regimen including Tylenol 1000 milligrams in the morning , 1000 milligrams afternoon, and Tylenol PM at that time. Will leave tramadol for severe breakthrough pain as needed. Otherwise, discontinue IV morphine and Winfield. Continue ceftriaxone for pulmonary coverage. Continue O2 and BiPAP. Encourage breathing activities. Bumex 2 mg TID for diuresis. Weight is down overall from admission Continue to work with PT/OT for strengthening. She would like to go home with . We discussed concern for weakness and inability to transfer safely. She acknowledges that SNU may be necessary at time of discharge. 01/22 Slight increase in BUN/Creatinine (114/3.3). Had been on Bumex TID and today starts BID dosing. Remains on 7L of oxygen. CXR on my review looks better - radiology report pending. JENNIFER Rocephin: 8 day course completed. DC scheduled Accuchecks per pt request. Blood sugars have been showing good control. Offered nasal saline for epistaxis - pt declined. 01/23 Slight increase in BUN though Creatinine is stable (129/3.3). DC IV Bumex and start Lasix 40 mg BID. Velazquez - start bladder retraining now that IV diuretics are stopped. Remains on 7L of oxygen. Encourage therapy. Wean as able. 01/24 Continue Lasix 40mg BID. Encourage deep breathing activities. Nursing able to wean O2 to 2L. Encourage activities and movement to help build strength. Recheck BMP in am due to stage IV CKD and medication use. Will recheck CBC in am due to anemia. 01/25 Patient appears to be intravascularly dry- BUN, Serum osmo quite high. Hold Lasix for today. Acute pulmonary edema resolved. Continue Home BiPAP and O2 for supportive care. Recheck CXR in am. Continue to hold Atenolol for now. Will order PT to help with increasing activity. Very limited due to severe obesity. Velazquez out- check UA for possible infection. BG normal. Continue to monitor. May benefit from HH upon dismissal. 01/26 Velazquez DC'd yesterday evening due to bladder spasms. Lasix held yesterday as she looks intravascularly dry. Weight is down 1.5 kg since yesterday. Continue to hold Lasix for now. Repeat BMP in am. Continues on 2L O2 (only uses at noc at home w/ BiPAP). Acute pulmonary edema resolved. Baseline SCr around 2.0-2.4- Consider limited gentle IV fluids if Cr/BUN not improving with holding Lasix? She has been screened for IRU and is potentially accepted pending insurance. 01/31 The patient is starting to make improvement in her acute kidney injury on chronic kidney disease. --> BUN/Cr improving slowly back to baseline, will hold further IVF and monitor off of diuretics; I don't think she is taking in much po, weights are stable Continue to monitor for signs of fluid overload. Hopefully the patient's insurance company will approve inpatient rehabilitation. If not, the patient will likely require fdc at discharge for strengthening. --> Referrals sent to locations for SNU and are pending With her tenuous fluid status and general debility she is not ready for dismissal at this time. Continue to titrate oxygen as able. Continue off of atenolol and monitor for bradycardia, pauses, etc. on telemetry- -> has been stable. Encourage ambulation; needs to at least be getting up to the chair for meals and only in bed while sleeping. Discussed plans today with the patient, RN, case management. 02/01 BUN/Cr improving slowly back to baseline, will hold further IVF and resume her home dose of lasix 40 mg daily today given increased dyspnea. Hopefully the patient's insurance company will approve inpatient rehabilitation. If not, the patient will likely require fdc at discharge for strengthening. --> Referrals sent to locations for SNU and are still pending With her tenuous fluid status and general debility she is not ready for dismissal at this time. Continue to titrate oxygen as able. Up to chair at last TID today and needs to get OOB as much as possible; added low dose norco to see if that helps her to be more active. Continue off of atenolol and monitor for bradycardia, pauses, etc. on telemetry- -> has been stable. Encourage ambulation; needs to at least be getting up to the chair for meals and only in bed while sleeping. Strict I/Os and daily weights. Monitor labs (renal panel, CBC, Mg) in AM with diuresis.
[2018-02-01] MEDS ORDERED: FUROSEMIDE 40 MG/4 ML INJECTION IVP ONE (11:02)
[2018-02-01] MEDS: APIXABAN 2.5 MG TABLET PO SCH ×2 (11:21→20:43)
[2018-02-01] MEDS: LINACLOTIDE 145 MCG CAPSULE PO SCH (11:22)
[2018-02-01] MEDS: ASPIRIN *EC* 81 MG TABLET PO SCH ×2 (11:22→20:43)
[2018-02-01] MEDS: AMLODIPINE 10 MG TABLET PO SCH (11:22)
[2018-02-01] MEDS: POLYETHYL GLYCOL 3350 17gm PACKET PO SCH (11:23)
[2018-02-01] MEDS: APAP/DIPHENHYDRAMINE 500 MG/25 MG TABLET PO SCH (20:43)
[2018-02-02] MEDS: ACETAMINOPHEN 500 MG TABLET PO SCH ×3 (06:50→16:23)
[2018-02-02] MEDS: ASPIRIN *EC* 81 MG TABLET PO SCH ×2 (08:08→21:20)
[2018-02-02] MEDS: APIXABAN 2.5 MG TABLET PO SCH ×2 (08:08→21:21)
[2018-02-02] MEDS: AMLODIPINE 10 MG TABLET PO SCH (08:08)
[2018-02-02] MEDS: POLYETHYL GLYCOL 3350 17gm PACKET PO SCH (08:08)
[2018-02-02] MEDS: FUROSEMIDE 40 MG TABLET PO SCH (08:08)
[2018-02-02] MEDS: LINACLOTIDE 145 MCG CAPSULE PO SCH (08:08)
[2018-02-02] MEDS: HYDROCODONE/APAP 5mg/325mg TABLET PO PRN ×2 (09:23→17:28)
--- NOTE | 2018-02-02 09:52 | Progress Note ---
- Date 02/02/18 Subjective: overall, patient is feeling better. She feels achy and sore in general, which she thinks is from being in bed for her prolonged hospitalization. She feels like her breathing is doing well and she denies feeling short of breath. She denies any chest pain. She denies abdominal pain or GI complaints. Objective Vital signs: Temperature 97.5 F 02/02/18 07:00 Pulse Rate 79 02/02/18 08:00 Respiratory Rate 16 02/02/18 07:00 Blood Pressure 156/72 H 02/02/18 07:00 Pulse Oximetry 96 02/02/18 07:10 Rhythm: Normal Sinus Rhythm Height/Weight/BMI: Height 1.7 m Weight 169.2 kg Body Mass Index 60.2 - Constitutional Present: no acute distress, well nourished, well developed, morbidly obese - Routine HEENT Exam Head: Present: normocephalic Eye: Present: PERRL. Absent: conjunctival icterus, scleral injection ENT: Present: mucous membranes moist, oropharynx clear - Routine Respiratory Exam Present: decreased breath sounds - Routine Cardiovascular Exam Present: RRR, S1, S2 - Routine Abdominal Exam Present: soft, normoactive bowel sounds, non distended, non tender - Routine Extremities Exam Present: edema (trace BLE) - Routine Skin Exam Present: intact, dry, warm - Routine Neurological Exam Present: alert, oriented X3, vision grossly intact, hearing grossly intact, normal speech - Routine Psychiatric Exam Present: normal affect, normal thought process, cooperative Results - Labs CBC & Chem 7: 02/02/18 04:22 02/02/18 04:22 Microbiology Results: Microbiology 01/16/18 22:17 Midline Blood Culture - Final No Growth After 5 Days 01/16/18 22:15 Midline Blood Culture - Final No Growth After 5 Days Assessment and Plan (1) Acute respiratory failure Current visit: Yes Status: Acute Assessment and Plan: Impression Acute respiratory failure with hypoxia-slowly improving and tolerating home BiPAP and she Acute pulmonary edema (POA)-resolved on chest x-ray 01/26/2018 Suspect pneumonia - clinically resolved Acute kidney injury on top of chronic kidney disease; improving with cr 2.4 Stage 4 CKD Hyperkalemia (POA) - resolved Leukocytosis (POA) resolved Hyperphosphatemia secondary to CKD-resolved on PhosLo -PhosLo discontinued on by recommendation of nephrology Hypercalcemia-resolved post IV fluids. Elevated PTH with vit D levels low; renal osteodystrophy, should improve with Vit D replacement Vitamin D deficiency with 25 hydroxy vitamin D level of 6 -1000 international units of vitamin D started this hospitalization Hypertension -fair control -she is currently off of atenolol due to bradycardia Type II DM -hemoglobin A1c 6.5-Cjiz-Pgbpj were monitored for the first week of the patient's stay and were mostly within range out treatment. Accu-Cheks were then discontinued. Hypercholesterolemia Diastolic heart failure - chronic Obstructive of sleep apnea with obesity hypoventilation syndrome - home BiPAP with O2 at night Chronic back pain Morbid obesity - BMI 62 Bradycardia with pauses-resolved since holding atenolol Paroxysmal atrial fibrillation-Eliquis started 01/29/2018 Plan BUN is 54 and creatinine is 2.4, likely baseline. Lasix was restarted yesterday (hydrochlorothiazide remains on hold). She appears euvolemic at a weight of 169.2 kg. Monitor sodium level, increased to 148. Bradycardia, improved. Continue to hold atenolol. Since stopping atenolol, BP moderately elevated at times, but heart rate has remained stable. Continue Eliquis for atrial fibrillation. Case management is working on discharge options. DVT Prophylaxis: Eliquis Resuscitation Status: Do Not Resuscitate - Physician Narrative Physician: Madina Lau MD Narrative: Date: 02/02/18 Time: 12:40 PM-I reviewed this chart, the patient history, and the [employer]'s/PA's documented findings as above. We discussed and formulated the assessment and plan as above with the additions below.-Dr. Lau The patient was seen earlier this morning in her room. She states she's feeling well. Lasix was restarted yesterday. She remains on room air during the day. She was short of breath yesterday but denies shortness of breath today. She did notice she was urinating more after Lasix was resumed yesterday. She has some loose stools, but states that is common with her laxatives. She states if she doesn't take the laxative she gets very constipated. On exam she is alert and in no acute distress. Chest is clear to auscultation anteriorly. Cardiovascular reveals a regular rate and rhythm. Abdomen is soft and nontender. Extremities are free of edema. Telemetry on the evening of 01/31/2018 showed a 15 beat run of possible A. fib with aberrancy versus V. tach. Bradycardia has resolved off of atenolol. Impression and plan Pulmonary edema which the patient had on admission has resolved. Acute kidney injury-resolved; BUN and creatinine appear to be back to baseline. Lasix was resumed yesterday. Regarding hypernatremia-we'll repeat basic metabolic profile tomorrow. Regarding arrhythmia, will await recommendations from Dr. Johnson. Regarding paroxysmal atrial fibrillation-continue anticoagulation Bradycardia has resolved off of atenolol Possible dismissal to penitentiary tomorrow if the patient is stable. Hospital Course Summary Disclaimer: The visit summary below is not to be considered part of the above Progress Note. Hospital Course: 01/14/18 Inpatient Admission to CCU Admit patient to inpatient status under care of Dr. Garcia for acute respiratory failure with hypoxia and pulmonary edema. Continue on BiPAP given respiratory distress. Patient is chronically on Lasix 40 milligrams daily. She was given 20 milligrams IV 1 in the emergency room. She also takes hydrochlorothiazide 50 milligrams daily. Will need to use caution with diuresing given acute renal injury. Will obtain a renal sonogram given acute kidney injury. Other etiology of hypoxia could be pulmonary emboli, however, given renal function, we are unable to give patient IV contrast at this time. Will cover with Lovenox 30 milligrams twice a day for prophylaxis. He recommendations as per pharmacy report. BMI greater than 40 prophylaxis dosing is recommended 30 BID rather than 40 mg daily. Due to known history of congestive heart failure. Will obtain echocardiogram for further cardiac evaluation. TSH, magnesium for laboratory completeness. Monitor Accu-Cheks routinely and obtain a hemoglobin A1c. At time of discharge medical care will return to primary care provider, Tevin SAUCEDO with [employer] [facility]. 01/15/18 Renal status/blood pressure stable - seeing increase urine output with Bumex drip. Repeat CXR with little change - ? underlying pneumonia. With continued leukocytosis will add azithromycin 500mg IV daily to currently scheduled daily ceftriaxone. Needing O2 at 6L - uses bipap intermittently. Renal sonogram showing no hydronephrosis. Blood sugars stable. Place PICC line secondary to poor IV access. Recheck BMP in am secondary to BINU and medications use. Will recheck CBC in am due to leukocytosis. Will continue with CCU care for close monitoring of cardiopulmonary status. 01/16/18 Will obtain Doppler tests lower ext due to pain and swelling to R/O DVT. Recheck BMP to monitor renal status as seeing increase to 3.6 this am. Urine output increased. Continue ceftriaxone and azithromycin for pulmonary coverage of potential pneumonia. O2 needs decreasing - wean O2 as able, BiPAP at night and during day as needed. 01/17/18 Continue nocturnal and prn BiPAP. Blood cx drawn for last night's fever. Check CXR. Continue ceftriaxone and azithromycin. WBC up slightly. Monitor. SCr continues at 3.6. Will DC Bumex drip and schedule 2 mg iv tid. Continue to monitor SCr. Add lactulose dose and trial of enemas. Doppler of BLE negative for DVT. 01/18/18 Continue nocturnal and prn BiPAP. Blood cx drawn for Friday night's fever show no growth. CXR shows improvement. Continue ceftriaxone and azithromycin. WBC up slightly. Monitor. SCr at 3.5. BUN trending up at 87. Bumex 2 mg iv tid. I/O 2333/2671. Continue to monitor. Bowels moved after lactulose and enema. Increase [place] to 7.5 for pain. BP better today. 01/19/18 Will continue ceftriaxone for pulmonary coverage - can stop azithromycin as course completed. Wean O2 as able. CPAP with O2 at night. Encourage deep breathing/IS for lung exercises. PT/OT to help functional status. Encourage increased activities - up to chair/ ambulate. Bumex 2 mg iv tid. Creatinine and potassium stable. Add PhosLo TID as phosphorus elevated secondary to CKD. Bowels moved after lactulose and enema. C diff negative. Can transfer patient to medical floor for continuation of care. 01/20/18 Continue ceftriaxone for pulmonary coverage. Continue O2 and BiPAP. Encourage breathing activities. PT/OT to help functional status. Encourage increased activities - up to chair/ ambulate. Bumex 2 mg iv tid. Creatinine and potassium stable. Increase atenolol to 50mg BID. Will add prn simethicone to help decrease abdominal cramping and bloating. 01/21 Lengthy discussion about goals to get home. These include weaning down oxygen as she usually does not use daytime oxygen She requests to be off narcotics as this causes fatigue. We will resume home in regimen including Tylenol 1000 milligrams in the morning , 1000 milligrams afternoon, and Tylenol PM at that time. Will leave tramadol for severe breakthrough pain as needed. Otherwise, discontinue IV morphine and [place]. Continue ceftriaxone for pulmonary coverage. Continue O2 and BiPAP. Encourage breathing activities. Bumex 2 mg TID for diuresis. Weight is down overall from admission Continue to work with PT/OT for strengthening. She would like to go home with . We discussed concern for weakness and inability to transfer safely. She acknowledges that SNU may be necessary at time of discharge. 01/22 Slight increase in BUN/Creatinine (114/3.3). Had been on Bumex TID and today starts BID dosing. Remains on 7L of oxygen. CXR on my review looks better - radiology report pending. DC Rocephin: 8 day course completed. DC scheduled Accuchecks per pt request. Blood sugars have been showing good control. Offered nasal saline for epistaxis - pt declined. 01/23 Slight increase in BUN though Creatinine is stable (129/3.3). DC IV Bumex and start Lasix 40 mg BID. Velazquez - start bladder retraining now that IV diuretics are stopped. Remains on 7L of oxygen. Encourage therapy. Wean as able. 01/24 Continue Lasix 40mg BID. Encourage deep breathing activities. Nursing able to wean O2 to 2L. Encourage activities and movement to help build strength. Recheck BMP in am due to stage IV CKD and medication use. Will recheck CBC in am due to anemia. 01/25 Patient appears to be intravascularly dry- BUN, Serum osmo quite high. Hold Lasix for today. Acute pulmonary edema resolved. Continue Home BiPAP and O2 for supportive care. Recheck CXR in am. Continue to hold Atenolol for now. Will order PT to help with increasing activity. Very limited due to severe obesity. Velazquez out- check UA for possible infection. BG normal. Continue to monitor. May benefit from HH upon dismissal. 01/26 Velazquez DC'd yesterday evening due to bladder spasms. Lasix held yesterday as she looks intravascularly dry. Weight is down 1.5 kg since yesterday. Continue to hold Lasix for now. Repeat BMP in am. Continues on 2L O2 (only uses at noc at home w/ BiPAP). Acute pulmonary edema resolved. Baseline SCr around 2.0-2.4- Consider limited gentle IV fluids if Cr/BUN not improving with holding Lasix? She has been screened for IRU and is potentially accepted pending insurance. 01/31 The patient is starting to make improvement in her acute kidney injury on chronic kidney disease. --> BUN/Cr improving slowly back to baseline, will hold further IVF and monitor off of diuretics; I don't think she is taking in much po, weights are stable Hopefully the patient's insurance company will approve inpatient rehabilitation. If not, the patient will likely require penitentiary at discharge for strengthening. --> Referrals sent to locations for SNU and are pending With her tenuous fluid status and general debility she is not ready for dismissal at this time. Continue off of atenolol and monitor for bradycardia, pauses, etc. on telemetry- -> has been stable. Encourage ambulation; needs to at least be getting up to the chair for meals and only in bed while sleeping. 02/01 BUN/Cr improving slowly back to baseline, will hold further IVF and resume her home dose of lasix 40 mg daily today given increased dyspnea. Hopefully the patient's insurance company will approve inpatient rehabilitation. If not, the patient will likely require penitentiary at discharge for strengthening. --> Referrals sent to locations for SNU and are still pending With her tenuous fluid status and general debility she is not ready for dismissal at this time. Up to chair at last TID today and needs to get OOB as much as possible; added low dose norco to see if that helps her to be more active. Continue off of atenolol and monitor for bradycardia, pauses, etc. on telemetry- -> has been stable. 02/02 BUN is 54 and creatinine is 2.4, likely baseline. Lasix was restarted yesterday (hydrochlorothiazide remains on hold). She appears euvolemic at a weight of 169.2 kg. Monitor sodium level, increased to 148. Bradycardia, improved. Continue to hold atenolol. Since stopping atenolol, BP moderately elevated at times, but heart rate has remained stable. Continue Eliquis for atrial fibrillation.
[2018-02-02] MEDS: ONDANSETRON 4 MG/2 ML INJECTION IVP PRN (14:51)
--- NOTE | 2018-02-02 17:23 | Cardiology Progress Note ---
<Montse Valenzuela M - Last Filed: 02/03/18 09:50> Subjective Principal diagnosis: sinus pause Interval history: Sully is seen in follow up for bradycardia. She has some arrhythmia that was potentially a run V Tach on telemetry over the weekend. She is laying in bed, in no distress. She denies chest pain, or feeling palpitations. Exam Vital signs: Temperature 97.9 F 02/02/18 15:55 Pulse Rate 93 02/02/18 15:55 Respiratory Rate 16 02/02/18 15:55 Blood Pressure 154/66 H 02/02/18 15:55 Pulse Oximetry 92 02/02/18 15:55 Inpatient Medications: Generic Name Dose Route Start Last Admin Trade Name Freq PRN Reason Stop Dose Admin Acetaminophen 1,000 mg 01/21/18 14:00 02/02/18 16:23 Tylenol PO Not Given [id number] MYNOR Acetaminophen/Diphenhydramine HCl 2 tab 01/14/18 21:00 02/01/18 20:43 Tylenol Pm PO 2 tab HS MYNOR Administration Hydrocodone Bitart/Acetaminophen 1 tab 02/01/18 10:52 02/02/18 09:23 [place] 5/325 PO 1 tab Q4H PRN Administration Pain Apixaban 2.5 mg 01/29/18 21:00 02/02/18 08:08 Eliquis PO 2.5 mg BID MYNOR Administration Aspirin 162 mg 01/14/18 21:00 02/02/18 08:08 Ecotrin PO 162 mg BID MYNOR Administration Atenolol 50 mg 01/20/18 21:00 01/26/18 21:18 Tenormin PO 50 mg BID MYNOR Administration Cholecalciferol 1,000 unit 01/30/18 09:00 02/02/18 08:08 Vit. D-3 PO 1,000 unit DAILY MYNOR Administration Furosemide 40 mg 01/26/18 09:00 02/02/18 08:08 Lasix 40 Mg Tab PO 40 mg DAILY MY[facility] Administration Linaclotide 145 mcg 01/23/18 07:30 02/02/18 08:08 Linzess PO 145 mcg 0730 MYNOR Administration Nifedipine 60 mg 02/03/18 09:00 Procardia Xl PO DAILY MYNOR Ondansetron HCl 4 mg 01/14/18 22:45 02/02/18 14:51 Zofran IVP 4 mg Q4H PRN Administration Nausea &/or vomiting Polyethylene Glycol 17 gm 01/16/18 09:00 02/02/18 08:08 Miralax PO 17 gm DAILY MYNOR Administration Senna/Docusate Sodium 1 tab 01/14/18 17:56 01/29/18 21:24 Senna Plus Tablet PO 1 tab BID PRN Administration Constipation Sodium Chloride 10 - 80 ml 01/14/18 15:35 01/27/18 12:36 Iv Flush IVF 10 ml PRN PRN Administration Flushing Trolamine Salicylate 1 applic 01/28/18 15:40 Aspercreme TOP PRN PRN Discontinued Medications Generic Name Dose Route Start Last Admin Trade Name Freq PRN Reason Stop Dose Admin Acetaminophen 650 mg 01/15/18 10:49 01/20/18 16:09 Tylenol PO 650 mg Q5H PRN Administration Pain Acetaminophen 1,300 mg 01/20/18 21:00 01/21/18 09:28 Tylenol Arthritis PO 1,300 mg BID MYNOR Administration Hydrocodone Bitart/Acetaminophen 1 tab 01/14/18 17:56 01/18/18 09:31 [place] 5/325 PO 1 tab Q6H PRN Administration Pain Hydrocodone Bitart/Acetaminophen 1 tab 01/18/18 15:25 01/20/18 10:20 [place] 7.5/325 PO 1 tab Q6H PRN Administration Pain Albuterol/Ipratropium 3 ml 01/14/18 15:39 01/14/18 15:44 Duoneb AEROSOL 01/14/18 15:40 3 ml O ONE Administration Amlodipine Besylate 10 mg 01/15/18 09:00 02/02/18 08:08 Norvasc PO 10 mg DAILY MYNOR Administration Amlodipine Besylate 5 mg 01/18/18 00:54 01/18/18 01:00 Norvasc PO 01/18/18 00:55 5 mg O ONE Administration Atenolol 25 mg 01/17/18 21:00 01/20/18 09:20 Tenormin PO 25 mg BID MYNOR Administration Bisacodyl 10 mg 01/14/18 17:56 01/16/18 17:30 Dulcolax RECTALLY 10 mg DAILY PRN Administration Constipation Bumetanide 2 mg 01/17/18 15:00 01/21/18 16:05 Bumex 1 Mg/4 Ml Inj. IVP 2 mg TID MYNOR Administration Bumetanide 2 mg 01/21/18 21:00 01/23/18 10:36 Bumex 1 Mg/4 Ml Inj. IVP Not Given BID [facility] Calcium Acetate 1,334 mg 01/19/18 12:00 01/27/18 14:43 Phoslo PO 1,334 mg TIDWM MYNOR Administration Enoxaparin Sodium 30 mg 01/14/18 21:00 01/22/18 08:50 Lovenox SQ 30 mg BID MYNOR Administration Enoxaparin Sodium 30 mg 01/23/18 09:00 Lovenox SQ DAILY MYNOR Enoxaparin Sodium 40 mg 01/23/18 09:00 01/29/18 09:39 Lovenox SQ 40 mg DAILY MY[facility] Administration Furosemide 20 mg 01/14/18 17:17 01/14/18 17:51 Lasix 20 Mg/2 Ml IVP 01/14/18 17:18 20 mg O ONE Administration Furosemide 40 mg 01/23/18 17:00 01/25/18 09:03 Lasix 40 Mg Tab PO 40 mg 0900,1700 MYNOR Administration Furosemide 40 mg 02/01/18 11:02 02/01/18 11:29 Lasix 40 Mg/4 Ml IVP 02/01/18 11:03 40 mg NOW ONE Administration Hydralazine HCl 10 mg 01/17/18 23:41 01/18/18 06:03 Apresoline IVP 10 mg Q6H PRN Administration SBP > 180 mm Hg Ceftriaxone Sodium 1 gm/ 100 mls @ 200 mls/hr 01/14/18 17:17 01/14/18 17:56 Sodium Chloride IV 01/14/18 17:46 200 mls/hr O ONE Administration Bumetanide 25 mg/ IV Solution 100 mls @ 2 mls/hr 01/14/18 17:56 01/17/18 11: 00 IV Infused Q24H MYNOR Infusion Ceftriaxone Sodium 1 g/ Sodium 100 mls @ 200 mls/hr 01/15/18 09:00 01/22/18 09:27 Chloride IV Infused DAILY [facility] Infusion Sodium Chloride 500 mls @ 20 mls/hr 01/15/18 06:20 01/15/18 10:21 Normal Saline IV Not Given .Q24H MYNOR Sodium Chloride 500 mls @ 20 mls/hr 01/14/18 20:00 01/18/18 21:40 Normal Saline IV Not Given .Q24H MYNOR Azithromycin 500 mg/ Sodium 250 mls @ 167 mls/hr 01/15/18 09:30 01/19/18 11: 09 Chloride IV Infused Q24H [facility] Infusion Sodium Chloride 1,000 mls @ 100 mls/hr 01/27/18 12:15 01/27/18 22:40 Normal Saline IV 01/27/18 22:14 Infused .Q10H [facility] Infusion Sodium Chloride 1,000 mls @ 100 mls/hr 01/28/18 15:45 01/29/18 03:31 1/2 Normal Saline IV 01/29/18 01:44 Infused .Q10H [facility] Infusion Sodium Chloride 1,000 mls @ 100 mls/hr 01/29/18 13:15 01/30/18 10:30 1/2 Normal Saline IV 01/30/18 09:14 Infused .Q10H MY[facility] Infusion Dextrose/Sodium Chloride 1,000 mls @ 100 mls/hr 01/30/18 11:15 01/30/18 22:30 D5-1/4ns IV 01/30/18 21:14 Infused .Q10H [facility] Infusion Lactulose 20 gm 01/17/18 09:56 01/17/18 11:46 Lactulose PO 01/17/18 09:57 20 gm O ONE Administration Linaclotide 145 mcg 01/20/18 09:00 01/22/18 08:49 Linzess PO 145 mcg DAILY [facility] Administration Lorazepam 0.5 mg 01/14/18 17:56 01/25/18 22:31 Ativan Inj IVP 0.5 mg Q4H PRN Administration Anxiety/Air hunger/Agitation Melatonin 3 mg 01/22/18 02:23 01/22/18 02:29 Melatonin PO 01/22/18 02:24 3 mg ONE TIME ONE Administration Mineral Oil 1 enema 01/17/18 09:56 01/17/18 10:37 Fleet Mineral Oil Enema IN 01/17/18 09:57 1 enema O ONE Administration Morphine Sulfate 2 mg 01/14/18 17:56 01/15/18 16:14 Morphine Sulfate Inj IVP 2 mg Q2HR PRN Administration Pain /Air hunger Morphine Sulfate 2 mg 01/15/18 16:15 01/20/18 04:36 Morphine Sulfate Inj IVP 2 mg Q2H PRN Administration Pain /Air hunger Morphine Sulfate 4 mg 01/17/18 02:43 01/17/18 02:49 Morphine Sulfate Inj IVP 01/17/18 02:44 4 mg O ONE Administration Pharmacy Consult 1 each 01/14/18 19:33 Pharmacy Consult - Fall Risk XX 01/14/18 19:34 ONE TIME ONE Pharmacy Consult 1 each 01/24/18 18:05 Pharmacy Consult - Fall Risk MC 01/24/18 18:06 ONE TIME ONE Pneumococcal 7-Valent Conj Vacc 0.5 ml 01/15/18 12:08 01/15/18 12:42 Prevnar 13 IM 01/15/18 12:09 0.5 ml .ONCE ONE Administration Polyethylene Glycol 17 gm 01/15/18 09:00 01/15/18 10:21 Miralax PO Not Given DAILY MYNOR Tramadol HCl 50 mg 01/14/18 17:56 Ultram PO BID PRN Pain Tramadol HCl 50 mg 01/21/18 13:55 02/01/18 03:13 Ultram PO 50 mg Q6H PRN Administration Pain - Constitutional no acute distress, morbidly obese, cooperative - Routine HEENT Exam Head: Present: normocephalic ENT: Present: mucous membranes moist - Routine Neck Exam Absent: JVD, carotid bruit - Routine Chest/Breast/Axilla Exam Chest wall: Absent: tenderness - Routine Respiratory Exam Present: diminished air movement. Absent: dyspnea - Routine Cardiovascular Exam Present: RRR, no murmur - Routine Abdominal Exam Present: soft, non tender - Routine Extremities Exam Present: edema - Routine Skin Exam Present: intact, dry, warm - Routine Neurological Exam Present: alert, oriented X3 - Routine Psychiatric Exam Present: normal affect, normal thought process - Urinary Catheter Management Straight Cath placed during this visit: yes, but has since been removed by the nurse Insertion date: 01/14/18 Insertion time: 19:15 Removal date: 01/25/18 Removal time: 10:19 Results 02/02/18 04:22 02/03/18 04:28 CBC 02/02/18 Range/Units 04:22 WBC 8.0 (4.5-11.0) T/MM3 RBC 3.70 L (4.00-5.20) M/MM3 Hgb 11.0 L (12-16) GM/DL Hct 35.4 L (36-46) % Plt Count 269 (130-400) T/MM3 Comprehensive Metabolic Panel 02/02/18 Range/Units 04:22 Sodium 148 H (134-144) MEQ/L Potassium 4.1 (3.6-5) MEQ/L Chloride 111 H (98-107) MEQ/L Carbon Dioxide 25 (22-30) MEQ/L BUN 54.0 H* (7-17) MG/DL Creatinine 2.4 H (0.7-1.2) mg/dL Glucose 120 H (65-110) MG/DL Calcium 9.1 (8.4-10.2) MG/DL Albumin 3.9 (3.5-5.0) g/dL Intake and Output 02/02/18 02/02/18 02/02/18 06:59 14:59 22:59 Intake Total 150 / 150 540 / 540 Balance 150 / 150 540 / 540 Intake: Oral 150 / 150 540 / 540 Other: Stool Color Brown Stool Consistency Formed Liquid Size of Bowel Movement Moderate # Voids 1 1 # Bowel Movements 1 Weight 372 lb 9.299 oz Patient Weight 02/03/18 06:59 Weight 372 lb 9.299 oz - EKG Interpretation EKG: sinus rhythm (occasional PVCs, LAD, incomplete RBBB) Assessment and Plan - Assessment and Plan (1) PAF (paroxysmal atrial fibrillation) Status: Acute (2) Sinus arrest Status: Acute (3) Chronic kidney disease Status: Chronic (4) Congestive heart failure Problem details: Diastolic Status: Chronic (5) Essential (primary) hypertension Status: Chronic Stop Amlodipine -Nifedipine 60mg po daily (6) Mixed hyperlipidemia Status: Chronic (7) Morbid obesity with BMI of 50.0-59.9, adult Status: Chronic (8) NSVT (nonsustained ventricular tachycardia) Status: Acute Start Amiodarone 400mg BID for 1 week then 200mg daily - Not a candidate for LHC due to CKD and elevated BUN/SCr - K+ 4.1, Mag 2.2 - Monitor LFTs - Assessment and Plan 01/27/18 Sinus arrest: 3.1 second pauses. - Likely caused by vagal response to activity/ pain - Hold Atenolol - Continue to monitor telemetry Chronic kidney disease BUN 110/ Scr 3.0 - Seen by - Does not want hemodialysis. Congestive heart failure Problem details: Diastolic BNP 1880 from 4350 Essential (primary) hypertension Continue Amlodipine Mixed hyperlipidemia Morbid obesity with BMI of 50.0-59.9, adult 01/28/18 Discussed plan with patient to watch for anymore bradycardia then will decide on treatment of A Fib since it was not persistent. 01/29/18 Start Eliquis 2.5mg BID for stroke prevention - Continue to monitor cardiac telemetry - Monitor HGB and platelets 01/30/18 Tolerates Eliquis, monitor for signs of bleeding - SCr 2.6, down from 3.0 - Continue to monitor - Call if cardiac concerns over weekend 02/02/18 NSVT: Start Amiodarone 400mg BID for 1 week then 200mg daily - Not a candidate for LHC due to CKD and elevated BUN/SCr - K+ 4.1, Mag 2.2 - Monitor LFTs - EKG in am - monitor cardiac telemetry HTN: Stop Amlodipine -Nifedipine 60mg po daily Hospital Course Summary Disclaimer: The visit summary below is not to be considered part of the above Progress Note. Hospital Course: 01/14/18 Inpatient Admission to CCU Admit patient to inpatient status under care of Dr. Garcia for acute respiratory failure with hypoxia and pulmonary edema. Continue on BiPAP given respiratory distress. Patient is chronically on Lasix 40 milligrams daily. She was given 20 milligrams IV 1 in the emergency room. She also takes hydrochlorothiazide 50 milligrams daily. Will need to use caution with diuresing given acute renal injury. Will obtain a renal sonogram given acute kidney injury. Other etiology of hypoxia could be pulmonary emboli, however, given renal function, we are unable to give patient IV contrast at this time. Will cover with Lovenox 30 milligrams twice a day for prophylaxis. He recommendations as per pharmacy report. BMI greater than 40 prophylaxis dosing is recommended 30 BID rather than 40 mg daily. Due to known history of congestive heart failure. Will obtain echocardiogram for further cardiac evaluation. TSH, magnesium for laboratory completeness. Monitor Accu-Cheks routinely and obtain a hemoglobin A1c. At time of discharge medical care will return to primary care provider, Tevin SAUCEDO with [facility]. 01/15/18 Renal status/blood pressure stable - seeing increase urine output with Bumex drip. Repeat CXR with little change - ? underlying pneumonia. With continued leukocytosis will add azithromycin 500mg IV daily to currently scheduled daily ceftriaxone. Needing O2 at 6L - uses bipap intermittently. Renal sonogram showing no hydronephrosis. Blood sugars stable. Place PICC line secondary to poor IV access. Recheck BMP in am secondary to BINU and medications use. Will recheck CBC in am due to leukocytosis. Will continue with CCU care for close monitoring of cardiopulmonary status. 01/16/18 Will obtain Doppler tests lower ext due to pain and swelling to R/O DVT. Recheck BMP to monitor renal status as seeing increase to 3.6 this am. Urine output increased. Continue ceftriaxone and azithromycin for pulmonary coverage of potential pneumonia. O2 needs decreasing - wean O2 as able, BiPAP at night and during day as needed. 01/17/18 Continue nocturnal and prn BiPAP. Blood cx drawn for last night's fever. Check CXR. Continue ceftriaxone and azithromycin. WBC up slightly. Monitor. SCr continues at 3.6. Will DC Bumex drip and schedule 2 mg iv tid. Continue to monitor SCr. Add lactulose dose and trial of enemas. Doppler of BLE negative for DVT. 01/18/18 Continue nocturnal and prn BiPAP. Blood cx drawn for Friday night's fever show no growth. CXR shows improvement. Continue ceftriaxone and azithromycin. WBC up slightly. Monitor. SCr at 3.5. BUN trending up at 87. Bumex 2 mg iv tid. I/O 2333/2671. Continue to monitor. Bowels moved after lactulose and enema. Increase [place] to 7.5 for pain. BP better today. 01/19/18 Will continue ceftriaxone for pulmonary coverage - can stop azithromycin as course completed. Wean O2 as able. CPAP with O2 at night. Encourage deep breathing/IS for lung exercises. PT/OT to help functional status. Encourage increased activities - up to chair/ ambulate. Bumex 2 mg iv tid. Creatinine and potassium stable. Add PhosLo TID as phosphorus elevated secondary to CKD. Bowels moved after lactulose and enema. C diff negative. Can transfer patient to medical floor for continuation of care. 01/20/18 Continue ceftriaxone for pulmonary coverage. Continue O2 and BiPAP. Encourage breathing activities. PT/OT to help functional status. Encourage increased activities - up to chair/ ambulate. Bumex 2 mg iv tid. Creatinine and potassium stable. Increase atenolol to 50mg BID. Will add prn simethicone to help decrease abdominal cramping and bloating. 01/21 Lengthy discussion about goals to get home. These include weaning down oxygen as she usually does not use daytime oxygen She requests to be off narcotics as this causes fatigue. We will resume home in regimen including Tylenol 1000 milligrams in the morning , 1000 milligrams afternoon, and Tylenol PM at that time. Will leave tramadol for severe breakthrough pain as needed. Otherwise, discontinue IV morphine and [place]. Continue ceftriaxone for pulmonary coverage. Continue O2 and BiPAP. Encourage breathing activities. Bumex 2 mg TID for diuresis. Weight is down overall from admission Continue to work with PT/OT for strengthening. She would like to go home with . We discussed concern for weakness and inability to transfer safely. She acknowledges that SNU may be necessary at time of discharge. 01/22 Slight increase in BUN/Creatinine (114/3.3). Had been on Bumex TID and today starts BID dosing. Remains on 7L of oxygen. CXR on my review looks better - radiology report pending. DC Rocephin: 8 day course completed. DC scheduled Accuchecks per pt request. Blood sugars have been showing good control. Offered nasal saline for epistaxis - pt declined. 01/23 Slight increase in BUN though Creatinine is stable (129/3.3). DC IV Bumex and start Lasix 40 mg BID. Velazquez - start bladder retraining now that IV diuretics are stopped. Remains on 7L of oxygen. Encourage therapy. Wean as able. 01/24 Continue Lasix 40mg BID. Encourage deep breathing activities. Nursing able to wean O2 to 2L. Encourage activities and movement to help build strength. Recheck BMP in am due to stage IV CKD and medication use. Will recheck CBC in am due to anemia. 01/25 Patient appears to be intravascularly dry- BUN, Serum osmo quite high. Hold Lasix for today. Acute pulmonary edema resolved. Continue Home BiPAP and O2 for supportive care. Recheck CXR in am. Continue to hold Atenolol for now. Will order PT to help with increasing activity. Very limited due to severe obesity. Velazquez out- check UA for possible infection. BG normal. Continue to monitor. May benefit from HH upon dismissal. 01/26 Velazquez DC'd yesterday evening due to bladder spasms. Lasix held yesterday as she looks intravascularly dry. Weight is down 1.5 kg since yesterday. Continue to hold Lasix for now. Repeat BMP in am. Continues on 2L O2 (only uses at noc at home w/ BiPAP). Acute pulmonary edema resolved. Baseline SCr around 2.0-2.4- Consider limited gentle IV fluids if Cr/BUN not improving with holding Lasix? She has been screened for IRU and is potentially accepted pending insurance. 01/31 The patient is starting to make improvement in her acute kidney injury on chronic kidney disease. --> BUN/Cr improving slowly back to baseline, will hold further IVF and monitor off of diuretics; I don't think she is taking in much po, weights are stable Hopefully the patient's insurance company will approve inpatient rehabilitation. If not, the patient will likely require detention at discharge for strengthening. --> Referrals sent to locations for SNU and are pending With her tenuous fluid status and general debility she is not ready for dismissal at this time. Continue off of atenolol and monitor for bradycardia, pauses, etc. on telemetry- -> has been stable. Encourage ambulation; needs to at least be getting up to the chair for meals and only in bed while sleeping. 02/01 BUN/Cr improving slowly back to baseline, will hold further IVF and resume her home dose of lasix 40 mg daily today given increased dyspnea. Hopefully the patient's insurance company will approve inpatient rehabilitation. If not, the patient will likely require detention at discharge for strengthening. --> Referrals sent to locations for SNU and are still pending With her tenuous fluid status and general debility she is not ready for dismissal at this time. Up to chair at last TID today and needs to get OOB as much as possible; added low dose norco to see if that helps her to be more active. Continue off of atenolol and monitor for bradycardia, pauses, etc. on telemetry- -> has been stable. 02/02 BUN is 54 and creatinine is 2.4, likely baseline. Lasix was restarted yesterday (hydrochlorothiazide remains on hold). She appears euvolemic at a weight of 169.2 kg. Monitor sodium level, increased to 148. Bradycardia, improved. Continue to hold atenolol. Since stopping atenolol, BP moderately elevated at times, but heart rate has remained stable. Continue Eliquis for atrial fibrillation. <Spencer Johnson - Last Filed: 02/04/18 08:18> Exam Vital signs: Temperature 97.3 F 02/03/18 07:00 Pulse Rate 96 02/03/18 08:00 Respiratory Rate 18 02/03/18 07:00 Blood Pressure 153/71 H 02/03/18 07:00 Pulse Oximetry 92 02/03/18 10:24 Inpatient Medications: Discontinued Medications Generic Name Dose Route Start Last Admin Trade Name Freq PRN Reason Stop Dose Admin Acetaminophen 650 mg 01/15/18 10:49 01/20/18 16:09 Tylenol PO 650 mg Q5H PRN Administration Pain Acetaminophen 1,300 mg 01/20/18 21:00 01/21/18 09:28 Tylenol Arthritis PO 1,300 mg BID MYNOR Administration Acetaminophen 1,000 mg 01/21/18 14:00 02/03/18 06:13 Tylenol PO 1,000 mg [id number] MYNOR Administration Acetaminophen/Diphenhydramine HCl 2 tab 01/14/18 21:00 02/02/18 21:19 Tylenol Pm PO 2 tab HS MYNOR Administration Hydrocodone Bitart/Acetaminophen 1 tab 01/14/18 17:56 01/18/18 09:31 [place] 5/325 PO 1 tab Q6H PRN Administration Pain Hydrocodone Bitart/Acetaminophen 1 tab 01/18/18 15:25 01/20/18 10:20 [place] 7.5/325 PO 1 tab Q6H PRN Administration Pain Hydrocodone Bitart/Acetaminophen 1 tab 02/01/18 10:52 02/03/18 12:52 [place] 5/325 PO 1 tab Q4H PRN Administration Pain Albuterol/Ipratropium 3 ml 01/14/18 15:39 01/14/18 15:44 Duoneb AEROSOL 01/14/18 15:40 3 ml O ONE Administration Amiodarone HCl 200 mg 02/09/18 09:00 Pacerone PO DAILY MYNOR Amiodarone HCl 400 mg 02/02/18 21:00 02/03/18 08:57 Pacerone PO 02/08/18 21:00 400 mg BID [facility] Administration Amlodipine Besylate 10 mg 01/15/18 09:00 02/02/18 08:08 Norvasc PO 10 mg DAILY MY[facility] Administration Amlodipine Besylate 5 mg 01/18/18 00:54 01/18/18 01:00 Norvasc PO 01/18/18 00:55 5 mg O ONE Administration Apixaban 2.5 mg 01/29/18 21:00 02/03/18 08:55 Eliquis PO 2.5 mg BID [facility] Administration Aspirin 162 mg 01/14/18 21:00 02/03/18 08:56 Ecotrin PO 162 mg BID [facility] Administration Atenolol 25 mg 01/17/18 21:00 01/20/18 09:20 Tenormin PO 25 mg BID [facility] Administration Atenolol 50 mg 01/20/18 21:00 01/26/18 21:18 Tenormin PO 50 mg BID [facility] Administration Bisacodyl 10 mg 01/14/18 17:56 01/16/18 17:30 Dulcolax RECTALLY 10 mg DAILY PRN Administration Constipation Bumetanide 2 mg 01/17/18 15:00 01/21/18 16:05 Bumex 1 Mg/4 Ml Inj. IVP 2 mg TID [facility] Administration Bumetanide 2 mg 01/21/18 21:00 01/23/18 10:36 Bumex 1 Mg/4 Ml Inj. IVP Not Given BID [facility] Calcium Acetate 1,334 mg 01/19/18 12:00 01/27/18 14:43 Phoslo PO 1,334 mg TIDWM [facility] Administration Cholecalciferol 1,000 unit 01/30/18 09:00 02/03/18 08:55 Vit. D-3 PO 1,000 unit DAILY [facility] Administration Enoxaparin Sodium 30 mg 01/14/18 21:00 01/22/18 08:50 Lovenox SQ 30 mg BID [facility] Administration Enoxaparin Sodium 30 mg 01/23/18 09:00 Lovenox SQ DAILY [facility] Enoxaparin Sodium 40 mg 01/23/18 09:00 01/29/18 09:39 Lovenox SQ 40 mg DAILY [facility] Administration Furosemide 20 mg 01/14/18 17:17 01/14/18 17:51 Lasix 20 Mg/2 Ml IVP 01/14/18 17:18 20 mg O ONE Administration Furosemide 40 mg 01/23/18 17:00 01/25/18 09:03 Lasix 40 Mg Tab PO 40 mg 0900,1700 MY[facility] Administration Furosemide 40 mg 01/26/18 09:00 02/03/18 08:55 Lasix 40 Mg Tab PO 40 mg DAILY [facility] Administration Furosemide 40 mg 02/01/18 11:02 02/01/18 11:29 Lasix 40 Mg/4 Ml IVP 02/01/18 11:03 40 mg NOW ONE Administration Hydralazine HCl 10 mg 01/17/18 23:41 01/18/18 06:03 Apresoline IVP 10 mg Q6H PRN Administration SBP > 180 mm Hg Ceftriaxone Sodium 1 gm/ 100 mls @ 200 mls/hr 01/14/18 17:17 01/14/18 17:56 Sodium Chloride IV 01/14/18 17:46 200 mls/hr O ONE Administration Bumetanide 25 mg/ IV Solution 100 mls @ 2 mls/hr 01/14/18 17:56 01/17/18 11: 00 IV Infused Q24H [facility] Infusion Ceftriaxone Sodium 1 g/ Sodium 100 mls @ 200 mls/hr 01/15/18 09:00 01/22/18 09:27 Chloride IV Infused DAILY [facility] Infusion Sodium Chloride 500 mls @ 20 mls/hr 01/15/18 06:20 01/15/18 10:21 Normal Saline IV Not Given .Q24H [facility] Sodium Chloride 500 mls @ 20 mls/hr 01/14/18 20:00 01/18/18 21:40 Normal Saline IV Not Given .Q24H [facility] Azithromycin 500 mg/ Sodium 250 mls @ 167 mls/hr 01/15/18 09:30 01/19/18 11: 09 Chloride IV Infused Q24H [facility] Infusion Sodium Chloride 1,000 mls @ 100 mls/hr 01/27/18 12:15 01/27/18 22:40 Normal Saline IV 01/27/18 22:14 Infused .Q10H [facility] Infusion Sodium Chloride 1,000 mls @ 100 mls/hr 01/28/18 15:45 01/29/18 03:31 1/2 Normal Saline IV 01/29/18 01:44 Infused .Q10H [facility] Infusion Sodium Chloride 1,000 mls @ 100 mls/hr 01/29/18 13:15 01/30/18 10:30 1/2 Normal Saline IV 01/30/18 09:14 Infused .Q10H [facility] Infusion Dextrose/Sodium Chloride 1,000 mls @ 100 mls/hr 01/30/18 11:15 01/30/18 22:30 D5-1/4ns IV 01/30/18 21:14 Infused .Q10H [facility] Infusion Lactulose 20 gm 01/17/18 09:56 01/17/18 11:46 Lactulose PO 01/17/18 09:57 20 gm O ONE Administration Linaclotide 145 mcg 01/20/18 09:00 01/22/18 08:49 Linzess PO 145 mcg DAILY [facility] Administration Linaclotide 145 mcg 01/23/18 07:30 02/03/18 08:55 Linzess PO 145 mcg 0730 [facility] Administration Lorazepam 0.5 mg 01/14/18 17:56 01/25/18 22:31 Ativan Inj IVP 0.5 mg Q4H PRN Administration Anxiety/Air hunger/Agitation Melatonin 3 mg 01/22/18 02:23 01/22/18 02:29 Melatonin PO 01/22/18 02:24 3 mg ONE TIME ONE Administration Mineral Oil 1 enema 01/17/18 09:56 01/17/18 10:37 Fleet Mineral Oil Enema IN 01/17/18 09:57 1 enema O ONE Administration Morphine Sulfate 2 mg 01/14/18 17:56 01/15/18 16:14 Morphine Sulfate Inj IVP 2 mg Q2HR PRN Administration Pain /Air hunger Morphine Sulfate 2 mg 01/15/18 16:15 01/20/18 04:36 Morphine Sulfate Inj IVP 2 mg Q2H PRN Administration Pain /Air hunger Morphine Sulfate 4 mg 01/17/18 02:43 01/17/18 02:49 Morphine Sulfate Inj IVP 01/17/18 02:44 4 mg O ONE Administration Nifedipine 60 mg 02/03/18 09:00 02/03/18 08:55 Procardia Xl PO 60 mg DAILY MYNOR Administration Ondansetron HCl 4 mg 01/14/18 22:45 02/02/18 14:51 Zofran IVP 4 mg Q4H PRN Administration Nausea &/or vomiting Pharmacy Consult 1 each 01/14/18 19:33 Pharmacy Consult - Fall Risk XX 01/14/18 19:34 ONE TIME ONE Pharmacy Consult 1 each 01/24/18 18:05 Pharmacy Consult - Fall Risk [facility] 01/24/18 18:06 ONE TIME ONE Pneumococcal 7-Valent Conj Vacc 0.5 ml 01/15/18 12:08 01/15/18 12:42 Prevnar 13 IM 01/15/18 12:09 0.5 ml .ONCE ONE Administration Polyethylene Glycol 17 gm 01/15/18 09:00 01/15/18 10:21 Miralax PO Not Given DAILY MYNOR Polyethylene Glycol 17 gm 01/16/18 09:00 02/03/18 08:56 Miralax PO 17 gm DAILY MYNOR Administration Senna/Docusate Sodium 1 tab 01/14/18 17:56 01/29/18 21:24 Senna Plus Tablet PO 1 tab BID PRN Administration Constipation Sodium Chloride 10 - 80 ml 01/14/18 15:35 01/27/18 12:36 Iv Flush IVF 10 ml PRN PRN Administration Flushing Tramadol HCl 50 mg 01/14/18 17:56 Ultram PO BID PRN Pain Tramadol HCl 50 mg 01/21/18 13:55 02/01/18 03:13 Ultram PO 50 mg Q6H PRN Administration Pain Trolamine Salicylate 1 applic 01/28/18 15:40 Aspercreme TOP PRN PRN - Urinary Catheter Management Straight Cath placed during this visit: no Results 02/02/18 04:22 02/03/18 04:28 Assessment and Plan - Assessment and Plan (1) Congestive heart failure Problem details: Diastolic Status: Chronic (2) Sinus arrest Status: Acute (3) Chronic kidney disease Status: Chronic (4) Essential (primary) hypertension Status: Chronic (5) Mixed hyperlipidemia Status: Chronic (6) Morbid obesity with BMI of 50.0-59.9, adult Status: Chronic (7) PAF (paroxysmal atrial fibrillation) Status: Acute (8) NSVT (nonsustained ventricular tachycardia) Status: Acute - Attestation Attestation Narrative: 02/04/18 08:18 Recommendation After examining the patient I agree with the above assessment. I am involved in the formulation of the patient's plan of care. Hospital Course Summary Disclaimer: The visit summary below is not to be considered part of the above Progress Note.
[2018-02-02] MEDS: APAP/DIPHENHYDRAMINE 500 MG/25 MG TABLET PO SCH (21:19)
[2018-02-02] MEDS: AMIODARONE 200 MG TABLET PO SCH (21:20)
[2018-02-03] MEDS: ACETAMINOPHEN 500 MG TABLET PO SCH (06:13)
[2018-02-03] MEDS: APIXABAN 2.5 MG TABLET PO SCH (08:55)
[2018-02-03] MEDS: FUROSEMIDE 40 MG TABLET PO SCH (08:55)
[2018-02-03] MEDS: LINACLOTIDE 145 MCG CAPSULE PO SCH (08:55)
[2018-02-03] MEDS: ASPIRIN *EC* 81 MG TABLET PO SCH (08:56)
[2018-02-03] MEDS: POLYETHYL GLYCOL 3350 17gm PACKET PO SCH (08:56)
[2018-02-03] MEDS: AMIODARONE 200 MG TABLET PO SCH (08:57)
[2018-02-03 09:33] VITALS: BP 153/71; PULSE 96; RESP 18; TEMP 97.3
--- NOTE | 2018-02-03 09:56 | Cardiology Progress Note ---
<Monste Valenzuela - Last Filed: 02/04/18 11:44> Subjective Principal diagnosis: sinus pause Interval history: Sully is seen in follow up for bradycardia. She is in bed this morning and anticipates discharge to IRU later today. She denies chest pain, pressure, palpitations or dyspnea. Exam Vital signs: Temperature 97.3 F 02/03/18 07:00 Pulse Rate 96 02/03/18 08:00 Respiratory Rate 18 02/03/18 07:00 Blood Pressure 153/71 H 02/03/18 07:00 Pulse Oximetry 89 L 02/03/18 07:00 Inpatient Medications: Generic Name Dose Route Start Last Admin Trade Name Freq PRN Reason Stop Dose Admin Acetaminophen 1,000 mg 01/21/18 14:00 02/03/18 06:13 Tylenol PO 1,000 mg [id number] MYNOR Administration Acetaminophen/Diphenhydramine HCl 2 tab 01/14/18 21:00 02/02/18 21:19 Tylenol Pm PO 2 tab HS MYNOR Administration Hydrocodone Bitart/Acetaminophen 1 tab 02/01/18 10:52 02/02/18 17:28 [place] 5/325 PO 1 tab Q4H PRN Administration Pain Amiodarone HCl 200 mg 02/09/18 09:00 Pacerone PO DAILY MYNOR Amiodarone HCl 400 mg 02/02/18 21:00 02/03/18 08:57 Pacerone PO 02/08/18 21:00 400 mg BID MYNOR Administration Apixaban 2.5 mg 01/29/18 21:00 02/03/18 08:55 Eliquis PO 2.5 mg BID MYNOR Administration Aspirin 162 mg 01/14/18 21:00 02/03/18 08:56 Ecotrin PO 162 mg BID MYNOR Administration Atenolol 50 mg 01/20/18 21:00 01/26/18 21:18 Tenormin PO 50 mg BID MYNOR Administration Cholecalciferol 1,000 unit 01/30/18 09:00 02/03/18 08:55 Vit. D-3 PO 1,000 unit DAILY MY[facility] Administration Furosemide 40 mg 01/26/18 09:00 02/03/18 08:55 Lasix 40 Mg Tab PO 40 mg DAILY [facility] Administration Linaclotide 145 mcg 01/23/18 07:30 02/03/18 08:55 Linzess PO 145 mcg 0730 MY[facility] Administration Nifedipine 60 mg 02/03/18 09:00 02/03/18 08:55 Procardia Xl PO 60 mg DAILY [facility] Administration Ondansetron HCl 4 mg 01/14/18 22:45 02/02/18 14:51 Zofran IVP 4 mg Q4H PRN Administration Nausea &/or vomiting Polyethylene Glycol 17 gm 01/16/18 09:00 02/03/18 08:56 Miralax PO 17 gm DAILY [facility] Administration Senna/Docusate Sodium 1 tab 01/14/18 17:56 01/29/18 21:24 Senna Plus Tablet PO 1 tab BID PRN Administration Constipation Sodium Chloride 10 - 80 ml 01/14/18 15:35 01/27/18 12:36 Iv Flush IVF 10 ml PRN PRN Administration Flushing Trolamine Salicylate 1 applic 01/28/18 15:40 Aspercreme TOP PRN PRN Discontinued Medications Generic Name Dose Route Start Last Admin Trade Name Freq PRN Reason Stop Dose Admin Acetaminophen 650 mg 01/15/18 10:49 01/20/18 16:09 Tylenol PO 650 mg Q5H PRN Administration Pain Acetaminophen 1,300 mg 01/20/18 21:00 01/21/18 09:28 Tylenol Arthritis PO 1,300 mg BID MY[facility] Administration Hydrocodone Bitart/Acetaminophen 1 tab 01/14/18 17:56 01/18/18 09:31 [place] 5/325 PO 1 tab Q6H PRN Administration Pain Hydrocodone Bitart/Acetaminophen 1 tab 01/18/18 15:25 01/20/18 10:20 [place] 7.5/325 PO 1 tab Q6H PRN Administration Pain Albuterol/Ipratropium 3 ml 01/14/18 15:39 01/14/18 15:44 Duoneb AEROSOL 01/14/18 15:40 3 ml O ONE Administration Amlodipine Besylate 10 mg 01/15/18 09:00 02/02/18 08:08 Norvasc PO 10 mg DAILY MY[facility] Administration Amlodipine Besylate 5 mg 01/18/18 00:54 01/18/18 01:00 Norvasc PO 01/18/18 00:55 5 mg O ONE Administration Atenolol 25 mg 01/17/18 21:00 01/20/18 09:20 Tenormin PO 25 mg BID MY[facility] Administration Bisacodyl 10 mg 01/14/18 17:56 01/16/18 17:30 Dulcolax RECTALLY 10 mg DAILY PRN Administration Constipation Bumetanide 2 mg 01/17/18 15:00 01/21/18 16:05 Bumex 1 Mg/4 Ml Inj. IVP 2 mg TID MYNOR Administration Bumetanide 2 mg 01/21/18 21:00 01/23/18 10:36 Bumex 1 Mg/4 Ml Inj. IVP Not Given BID [facility] Calcium Acetate 1,334 mg 01/19/18 12:00 01/27/18 14:43 Phoslo PO 1,334 mg TIDWM MYNOR Administration Enoxaparin Sodium 30 mg 01/14/18 21:00 01/22/18 08:50 Lovenox SQ 30 mg BID MYNOR Administration Enoxaparin Sodium 30 mg 01/23/18 09:00 Lovenox SQ DAILY MY[facility] Enoxaparin Sodium 40 mg 01/23/18 09:00 01/29/18 09:39 Lovenox SQ 40 mg DAILY MY[facility] Administration Furosemide 20 mg 01/14/18 17:17 01/14/18 17:51 Lasix 20 Mg/2 Ml IVP 01/14/18 17:18 20 mg O ONE Administration Furosemide 40 mg 01/23/18 17:00 01/25/18 09:03 Lasix 40 Mg Tab PO 40 mg 0900,1700 MYNOR Administration Furosemide 40 mg 02/01/18 11:02 02/01/18 11:29 Lasix 40 Mg/4 Ml IVP 02/01/18 11:03 40 mg NOW ONE Administration Hydralazine HCl 10 mg 01/17/18 23:41 01/18/18 06:03 Apresoline IVP 10 mg Q6H PRN Administration SBP > 180 mm Hg Ceftriaxone Sodium 1 gm/ 100 mls @ 200 mls/hr 01/14/18 17:17 01/14/18 17:56 Sodium Chloride IV 01/14/18 17:46 200 mls/hr O ONE Administration Bumetanide 25 mg/ IV Solution 100 mls @ 2 mls/hr 01/14/18 17:56 01/17/18 11: 00 IV Infused Q24H MY[facility] Infusion Ceftriaxone Sodium 1 g/ Sodium 100 mls @ 200 mls/hr 01/15/18 09:00 01/22/18 09:27 Chloride IV Infused DAILY [facility] Infusion Sodium Chloride 500 mls @ 20 mls/hr 01/15/18 06:20 01/15/18 10:21 Normal Saline IV Not Given .Q24H MYNOR Sodium Chloride 500 mls @ 20 mls/hr 01/14/18 20:00 01/18/18 21:40 Normal Saline IV Not Given .Q24H MYNOR Azithromycin 500 mg/ Sodium 250 mls @ 167 mls/hr 01/15/18 09:30 01/19/18 11: 09 Chloride IV Infused Q24H [facility] Infusion Sodium Chloride 1,000 mls @ 100 mls/hr 01/27/18 12:15 01/27/18 22:40 Normal Saline IV 01/27/18 22:14 Infused .Q10H MY[facility] Infusion Sodium Chloride 1,000 mls @ 100 mls/hr 01/28/18 15:45 01/29/18 03:31 1/2 Normal Saline IV 01/29/18 01:44 Infused .Q10H [facility] Infusion Sodium Chloride 1,000 mls @ 100 mls/hr 01/29/18 13:15 01/30/18 10:30 1/2 Normal Saline IV 01/30/18 09:14 Infused .Q10H MY[facility] Infusion Dextrose/Sodium Chloride 1,000 mls @ 100 mls/hr 01/30/18 11:15 01/30/18 22:30 D5-1/4ns IV 01/30/18 21:14 Infused .Q10H MY[facility] Infusion Lactulose 20 gm 01/17/18 09:56 01/17/18 11:46 Lactulose PO 01/17/18 09:57 20 gm O ONE Administration Linaclotide 145 mcg 01/20/18 09:00 01/22/18 08:49 Linzess PO 145 mcg DAILY MY[facility] Administration Lorazepam 0.5 mg 01/14/18 17:56 01/25/18 22:31 Ativan Inj IVP 0.5 mg Q4H PRN Administration Anxiety/Air hunger/Agitation Melatonin 3 mg 01/22/18 02:23 01/22/18 02:29 Melatonin PO 01/22/18 02:24 3 mg ONE TIME ONE Administration Mineral Oil 1 enema 01/17/18 09:56 01/17/18 10:37 Fleet Mineral Oil Enema GA 01/17/18 09:57 1 enema O ONE Administration Morphine Sulfate 2 mg 01/14/18 17:56 01/15/18 16:14 Morphine Sulfate Inj IVP 2 mg Q2HR PRN Administration Pain /Air hunger Morphine Sulfate 2 mg 01/15/18 16:15 01/20/18 04:36 Morphine Sulfate Inj IVP 2 mg Q2H PRN Administration Pain /Air hunger Morphine Sulfate 4 mg 01/17/18 02:43 01/17/18 02:49 Morphine Sulfate Inj IVP 01/17/18 02:44 4 mg O ONE Administration Pharmacy Consult 1 each 01/14/18 19:33 Pharmacy Consult - Fall Risk XX 01/14/18 19:34 ONE TIME ONE Pharmacy Consult 1 each 01/24/18 18:05 Pharmacy Consult - Fall Risk MC 01/24/18 18:06 ONE TIME ONE Pneumococcal 7-Valent Conj Vacc 0.5 ml 01/15/18 12:08 01/15/18 12:42 Prevnar 13 IM 01/15/18 12:09 0.5 ml .ONCE ONE Administration Polyethylene Glycol 17 gm 01/15/18 09:00 01/15/18 10:21 Miralax PO Not Given DAILY MYNOR Tramadol HCl 50 mg 01/14/18 17:56 Ultram PO BID PRN Pain Tramadol HCl 50 mg 01/21/18 13:55 02/01/18 03:13 Ultram PO 50 mg Q6H PRN Administration Pain - Constitutional no acute distress, morbidly obese, cooperative - Routine HEENT Exam Head: Present: normocephalic ENT: Present: mucous membranes moist - Routine Neck Exam Absent: JVD, carotid bruit - Routine Chest/Breast/Axilla Exam Chest wall: Absent: tenderness - Routine Respiratory Exam Present: diminished air movement. Absent: dyspnea - Routine Cardiovascular Exam Present: RRR, no murmur - Routine Abdominal Exam Present: soft - Routine Extremities Exam Present: no edema - Routine Skin Exam Present: intact, dry, warm - Routine Neurological Exam Present: alert, oriented X3 - Routine Psychiatric Exam Present: normal affect, normal thought process - Urinary Catheter Management Straight Cath placed during this visit: yes, but has since been removed by the nurse Insertion date: 01/14/18 Insertion time: 19:15 Removal date: 01/25/18 Removal time: 10:19 Results 02/02/18 04:22 02/03/18 04:28 Cardiac Enzymes 02/03/18 Range/Units 04:28 AST 29 (14-36) U/L Comprehensive Metabolic Panel 02/03/18 Range/Units 04:28 Sodium 147 H (134-144) MEQ/L Potassium 4.3 (3.6-5) MEQ/L Chloride 109 H (98-107) MEQ/L Carbon Dioxide 26 (22-30) MEQ/L BUN 50.0 H (7-17) MG/DL Creatinine 2.4 H (0.7-1.2) mg/dL Glucose 105 (65-110) MG/DL Calcium 9.2 (8.4-10.2) MG/DL Unconjugated Bilirubin 0.20 (0.00-1.1) mg/dL AST 29 (14-36) U/L ALT 25 (1-35) U/L Alkaline Phosphatase 113 (38-126) U/L Total Protein 7.7 (6.3-8.2) g/dL Albumin 3.9 (3.5-5.0) g/dL Intake and Output 02/02/18 02/03/18 02/03/18 22:59 06:59 14:59 Intake Total 300 / 300 Balance 300 / 300 Intake: Oral 300 / 300 Other: Urine Appearance Clear Urine Color Yellow # Voids 1 1 1 Weight 374 lb 5.518 oz Patient Weight 02/04/18 06:59 Weight 374 lb 5.518 oz - EKG Interpretation EKG: sinus rhythm (occasional PVCs, LAD, incomplete RBBB) Assessment and Plan - Assessment and Plan (1) PAF (paroxysmal atrial fibrillation) Status: Acute (2) Sinus arrest Status: Resolved (3) Chronic kidney disease Status: Chronic (4) Congestive heart failure Problem details: Diastolic Status: Chronic (5) Essential (primary) hypertension Status: Chronic (6) Mixed hyperlipidemia Status: Chronic (7) Morbid obesity with BMI of 50.0-59.9, adult Status: Chronic (8) NSVT (nonsustained ventricular tachycardia) Status: Acute - Assessment and Plan 01/27/18 Sinus arrest: 3.1 second pauses. - Likely caused by vagal response to activity/ pain - Hold Atenolol - Continue to monitor telemetry Chronic kidney disease BUN 110/ Scr 3.0 - Seen by - Does not want hemodialysis. Congestive heart failure Problem details: Diastolic BNP 1880 from 4350 Essential (primary) hypertension Continue Amlodipine Mixed hyperlipidemia Morbid obesity with BMI of 50.0-59.9, adult 01/28/18 Discussed plan with patient to watch for anymore bradycardia then will decide on treatment of A Fib since it was not persistent. 01/29/18 Start Eliquis 2.5mg BID for stroke prevention - Continue to monitor cardiac telemetry - Monitor HGB and platelets 01/30/18 Tolerates Eliquis, monitor for signs of bleeding - SCr 2.6, down from 3.0 - Continue to monitor - Call if cardiac concerns over weekend 02/02/18 NSVT: Start Amiodarone 400mg BID for 1 week then 200mg daily - Not a candidate for LHC due to CKD and elevated BUN/SCr - K+ 4.1, Mag 2.2 - Monitor LFTs - EKG in am - monitor cardiac telemetry HTN: Stop Amlodipine -Nifedipine 60mg po daily 02/03/18 EKG: SR, occasional PVCs, LAD, incomplete RBBB, QTc 404 - Okay to transfer to IRU today, continue telemetry. Hospital Course Summary Disclaimer: The visit summary below is not to be considered part of the above Progress Note. Hospital Course: 01/14/18 Inpatient Admission to CCU Admit patient to inpatient status under care of Dr. Garcia for acute respiratory failure with hypoxia and pulmonary edema. Continue on BiPAP given respiratory distress. Patient is chronically on Lasix 40 milligrams daily. She was given 20 milligrams IV 1 in the emergency room. She also takes hydrochlorothiazide 50 milligrams daily. Will need to use caution with diuresing given acute renal injury. Will obtain a renal sonogram given acute kidney injury. Other etiology of hypoxia could be pulmonary emboli, however, given renal function, we are unable to give patient IV contrast at this time. Will cover with Lovenox 30 milligrams twice a day for prophylaxis. He recommendations as per pharmacy report. BMI greater than 40 prophylaxis dosing is recommended 30 BID rather than 40 mg daily. Due to known history of congestive heart failure. Will obtain echocardiogram for further cardiac evaluation. TSH, magnesium for laboratory completeness. Monitor Accu-Cheks routinely and obtain a hemoglobin A1c. At time of discharge medical care will return to primary care provider, Tevin SAUCEDO with [facility]. 01/15/18 Renal status/blood pressure stable - seeing increase urine output with Bumex drip. Repeat CXR with little change - ? underlying pneumonia. With continued leukocytosis will add azithromycin 500mg IV daily to currently scheduled daily ceftriaxone. Needing O2 at 6L - uses bipap intermittently. Renal sonogram showing no hydronephrosis. Blood sugars stable. Place PICC line secondary to poor IV access. Recheck BMP in am secondary to BINU and medications use. Will recheck CBC in am due to leukocytosis. Will continue with CCU care for close monitoring of cardiopulmonary status. 01/16/18 Will obtain Doppler tests lower ext due to pain and swelling to R/O DVT. Recheck BMP to monitor renal status as seeing increase to 3.6 this am. Urine output increased. Continue ceftriaxone and azithromycin for pulmonary coverage of potential pneumonia. O2 needs decreasing - wean O2 as able, BiPAP at night and during day as needed. 01/17/18 Continue nocturnal and prn BiPAP. Blood cx drawn for last night's fever. Check CXR. Continue ceftriaxone and azithromycin. WBC up slightly. Monitor. SCr continues at 3.6. Will DC Bumex drip and schedule 2 mg iv tid. Continue to monitor SCr. Add lactulose dose and trial of enemas. Doppler of BLE negative for DVT. 01/18/18 Continue nocturnal and prn BiPAP. Blood cx drawn for Friday night's fever show no growth. CXR shows improvement. Continue ceftriaxone and azithromycin. WBC up slightly. Monitor. SCr at 3.5. BUN trending up at 87. Bumex 2 mg iv tid. I/O 2333/2671. Continue to monitor. Bowels moved after lactulose and enema. Increase [place] to 7.5 for pain. BP better today. 01/19/18 Will continue ceftriaxone for pulmonary coverage - can stop azithromycin as course completed. Wean O2 as able. CPAP with O2 at night. Encourage deep breathing/IS for lung exercises. PT/OT to help functional status. Encourage increased activities - up to chair/ ambulate. Bumex 2 mg iv tid. Creatinine and potassium stable. Add PhosLo TID as phosphorus elevated secondary to CKD. Bowels moved after lactulose and enema. C diff negative. Can transfer patient to medical floor for continuation of care. 01/20/18 Continue ceftriaxone for pulmonary coverage. Continue O2 and BiPAP. Encourage breathing activities. PT/OT to help functional status. Encourage increased activities - up to chair/ ambulate. Bumex 2 mg iv tid. Creatinine and potassium stable. Increase atenolol to 50mg BID. Will add prn simethicone to help decrease abdominal cramping and bloating. 01/21 Lengthy discussion about goals to get home. These include weaning down oxygen as she usually does not use daytime oxygen She requests to be off narcotics as this causes fatigue. We will resume home in regimen including Tylenol 1000 milligrams in the morning , 1000 milligrams afternoon, and Tylenol PM at that time. Will leave tramadol for severe breakthrough pain as needed. Otherwise, discontinue IV morphine and [place]. Continue ceftriaxone for pulmonary coverage. Continue O2 and BiPAP. Encourage breathing activities. Bumex 2 mg TID for diuresis. Weight is down overall from admission Continue to work with PT/OT for strengthening. She would like to go home with . We discussed concern for weakness and inability to transfer safely. She acknowledges that SNU may be necessary at time of discharge. 01/22 Slight increase in BUN/Creatinine (114/3.3). Had been on Bumex TID and today starts BID dosing. Remains on 7L of oxygen. CXR on my review looks better - radiology report pending. DC Rocephin: 8 day course completed. DC scheduled Accuchecks per pt request. Blood sugars have been showing good control. Offered nasal saline for epistaxis - pt declined. 01/23 Slight increase in BUN though Creatinine is stable (129/3.3). DC IV Bumex and start Lasix 40 mg BID. Velazquez - start bladder retraining now that IV diuretics are stopped. Remains on 7L of oxygen. Encourage therapy. Wean as able. 01/24 Continue Lasix 40mg BID. Encourage deep breathing activities. Nursing able to wean O2 to 2L. Encourage activities and movement to help build strength. Recheck BMP in am due to stage IV CKD and medication use. Will recheck CBC in am due to anemia. 01/25 Patient appears to be intravascularly dry- BUN, Serum osmo quite high. Hold Lasix for today. Acute pulmonary edema resolved. Continue Home BiPAP and O2 for supportive care. Recheck CXR in am. Continue to hold Atenolol for now. Will order PT to help with increasing activity. Very limited due to severe obesity. Velazquez out- check UA for possible infection. BG normal. Continue to monitor. May benefit from HH upon dismissal. 01/26 Velazquez DC'd yesterday evening due to bladder spasms. Lasix held yesterday as she looks intravascularly dry. Weight is down 1.5 kg since yesterday. Continue to hold Lasix for now. Repeat BMP in am. Continues on 2L O2 (only uses at noc at home w/ BiPAP). Acute pulmonary edema resolved. Baseline SCr around 2.0-2.4- Consider limited gentle IV fluids if Cr/BUN not improving with holding Lasix? She has been screened for IRU and is potentially accepted pending insurance. 01/31 The patient is starting to make improvement in her acute kidney injury on chronic kidney disease. --> BUN/Cr improving slowly back to baseline, will hold further IVF and monitor off of diuretics; I don't think she is taking in much po, weights are stable Hopefully the patient's insurance company will approve inpatient rehabilitation. If not, the patient will likely require mcc at discharge for strengthening. --> Referrals sent to locations for SNU and are pending With her tenuous fluid status and general debility she is not ready for dismissal at this time. Continue off of atenolol and monitor for bradycardia, pauses, etc. on telemetry- -> has been stable. Encourage ambulation; needs to at least be getting up to the chair for meals and only in bed while sleeping. 02/01 BUN/Cr improving slowly back to baseline, will hold further IVF and resume her home dose of lasix 40 mg daily today given increased dyspnea. Hopefully the patient's insurance company will approve inpatient rehabilitation. If not, the patient will likely require mcc at discharge for strengthening. --> Referrals sent to locations for SNU and are still pending With her tenuous fluid status and general debility she is not ready for dismissal at this time. Up to chair at last TID today and needs to get OOB as much as possible; added low dose norco to see if that helps her to be more active. Continue off of atenolol and monitor for bradycardia, pauses, etc. on telemetry- -> has been stable. 02/02 BUN is 54 and creatinine is 2.4, likely baseline. Lasix was restarted yesterday (hydrochlorothiazide remains on hold). She appears euvolemic at a weight of 169.2 kg. Monitor sodium level, increased to 148. Bradycardia, improved. Continue to hold atenolol. Since stopping atenolol, BP moderately elevated at times, but heart rate has remained stable. Continue Eliquis for atrial fibrillation. <Spencer Johnson - Last Filed: 02/06/18 13:16> Exam Vital signs: Temperature 97.3 F 02/03/18 07:00 Pulse Rate 96 02/03/18 08:00 Respiratory Rate 18 02/03/18 07:00 Blood Pressure 153/71 H 02/03/18 07:00 Pulse Oximetry 92 02/03/18 10:24 Inpatient Medications: Discontinued Medications Generic Name Dose Route Start Last Admin Trade Name Freq PRN Reason Stop Dose Admin Acetaminophen 650 mg 01/15/18 10:49 01/20/18 16:09 Tylenol PO 650 mg Q5H PRN Administration Pain Acetaminophen 1,300 mg 01/20/18 21:00 01/21/18 09:28 Tylenol Arthritis PO 1,300 mg BID MYNOR Administration Acetaminophen 1,000 mg 01/21/18 14:00 02/03/18 06:13 Tylenol PO 1,000 mg [id number] MYNOR Administration Acetaminophen/Diphenhydramine HCl 2 tab 01/14/18 21:00 02/02/18 21:19 Tylenol Pm PO 2 tab HS MYNOR Administration Hydrocodone Bitart/Acetaminophen 1 tab 01/14/18 17:56 01/18/18 09:31 [place] 5/325 PO 1 tab Q6H PRN Administration Pain Hydrocodone Bitart/Acetaminophen 1 tab 01/18/18 15:25 01/20/18 10:20 [place] 7.5/325 PO 1 tab Q6H PRN Administration Pain Hydrocodone Bitart/Acetaminophen 1 tab 02/01/18 10:52 02/03/18 12:52 [place] 5/325 PO 1 tab Q4H PRN Administration Pain Albuterol/Ipratropium 3 ml 01/14/18 15:39 01/14/18 15:44 Duoneb AEROSOL 01/14/18 15:40 3 ml O ONE Administration Amiodarone HCl 200 mg 02/09/18 09:00 Pacerone PO DAILY [facility] Amiodarone HCl 400 mg 02/02/18 21:00 02/03/18 08:57 Pacerone PO 02/08/18 21:00 400 mg BID MYNOR Administration Amlodipine Besylate 10 mg 01/15/18 09:00 02/02/18 08:08 Norvasc PO 10 mg DAILY [facility] Administration Amlodipine Besylate 5 mg 01/18/18 00:54 01/18/18 01:00 Norvasc PO 01/18/18 00:55 5 mg O ONE Administration Apixaban 2.5 mg 01/29/18 21:00 02/03/18 08:55 Eliquis PO 2.5 mg BID [facility] Administration Aspirin 162 mg 01/14/18 21:00 02/03/18 08:56 Ecotrin PO 162 mg BID [facility] Administration Atenolol 25 mg 01/17/18 21:00 01/20/18 09:20 Tenormin PO 25 mg BID [facility] Administration Atenolol 50 mg 01/20/18 21:00 01/26/18 21:18 Tenormin PO 50 mg BID [facility] Administration Bisacodyl 10 mg 01/14/18 17:56 01/16/18 17:30 Dulcolax RECTALLY 10 mg DAILY PRN Administration Constipation Bumetanide 2 mg 01/17/18 15:00 01/21/18 16:05 Bumex 1 Mg/4 Ml Inj. IVP 2 mg TID [facility] Administration Bumetanide 2 mg 01/21/18 21:00 01/23/18 10:36 Bumex 1 Mg/4 Ml Inj. IVP Not Given BID [facility] Calcium Acetate 1,334 mg 01/19/18 12:00 01/27/18 14:43 Phoslo PO 1,334 mg TIDWM [facility] Administration Cholecalciferol 1,000 unit 01/30/18 09:00 02/03/18 08:55 Vit. D-3 PO 1,000 unit DAILY [facility] Administration Enoxaparin Sodium 30 mg 01/14/18 21:00 01/22/18 08:50 Lovenox SQ 30 mg BID [facility] Administration Enoxaparin Sodium 30 mg 01/23/18 09:00 Lovenox SQ DAILY [facility] Enoxaparin Sodium 40 mg 01/23/18 09:00 01/29/18 09:39 Lovenox SQ 40 mg DAILY [facility] Administration Furosemide 20 mg 01/14/18 17:17 01/14/18 17:51 Lasix 20 Mg/2 Ml IVP 01/14/18 17:18 20 mg O ONE Administration Furosemide 40 mg 01/23/18 17:00 01/25/18 09:03 Lasix 40 Mg Tab PO 40 mg 0900,1700 MY[facility] Administration Furosemide 40 mg 01/26/18 09:00 02/03/18 08:55 Lasix 40 Mg Tab PO 40 mg DAILY [facility] Administration Furosemide 40 mg 02/01/18 11:02 02/01/18 11:29 Lasix 40 Mg/4 Ml IVP 02/01/18 11:03 40 mg NOW ONE Administration Hydralazine HCl 10 mg 01/17/18 23:41 01/18/18 06:03 Apresoline IVP 10 mg Q6H PRN Administration SBP > 180 mm Hg Ceftriaxone Sodium 1 gm/ 100 mls @ 200 mls/hr 01/14/18 17:17 01/14/18 17:56 Sodium Chloride IV 01/14/18 17:46 200 mls/hr O ONE Administration Bumetanide 25 mg/ IV Solution 100 mls @ 2 mls/hr 01/14/18 17:56 01/17/18 11: 00 IV Infused Q24H [facility] Infusion Ceftriaxone Sodium 1 g/ Sodium 100 mls @ 200 mls/hr 01/15/18 09:00 01/22/18 09:27 Chloride IV Infused DAILY [facility] Infusion Sodium Chloride 500 mls @ 20 mls/hr 01/15/18 06:20 01/15/18 10:21 Normal Saline IV Not Given .Q24H [facility] Sodium Chloride 500 mls @ 20 mls/hr 01/14/18 20:00 01/18/18 21:40 Normal Saline IV Not Given .Q24H [facility] Azithromycin 500 mg/ Sodium 250 mls @ 167 mls/hr 01/15/18 09:30 01/19/18 11: 09 Chloride IV Infused Q24H [facility] Infusion Sodium Chloride 1,000 mls @ 100 mls/hr 01/27/18 12:15 01/27/18 22:40 Normal Saline IV 01/27/18 22:14 Infused .Q10H [facility] Infusion Sodium Chloride 1,000 mls @ 100 mls/hr 01/28/18 15:45 01/29/18 03:31 1/2 Normal Saline IV 01/29/18 01:44 Infused .Q10H [facility] Infusion Sodium Chloride 1,000 mls @ 100 mls/hr 01/29/18 13:15 01/30/18 10:30 1/2 Normal Saline IV 01/30/18 09:14 Infused .Q10H [facility] Infusion Dextrose/Sodium Chloride 1,000 mls @ 100 mls/hr 01/30/18 11:15 01/30/18 22:30 D5-1/4ns IV 01/30/18 21:14 Infused .Q10H [facility] Infusion Lactulose 20 gm 01/17/18 09:56 01/17/18 11:46 Lactulose PO 01/17/18 09:57 20 gm O ONE Administration Linaclotide 145 mcg 01/20/18 09:00 01/22/18 08:49 Linzess PO 145 mcg DAILY [facility] Administration Linaclotide 145 mcg 01/23/18 07:30 02/03/18 08:55 Linzess PO 145 mcg 0730 [facility] Administration Lorazepam 0.5 mg 01/14/18 17:56 01/25/18 22:31 Ativan Inj IVP 0.5 mg Q4H PRN Administration Anxiety/Air hunger/Agitation Melatonin 3 mg 01/22/18 02:23 01/22/18 02:29 Melatonin PO 01/22/18 02:24 3 mg ONE TIME ONE Administration Mineral Oil 1 enema 01/17/18 09:56 01/17/18 10:37 Fleet Mineral Oil Enema GA 01/17/18 09:57 1 enema O ONE Administration Morphine Sulfate 2 mg 01/14/18 17:56 01/15/18 16:14 Morphine Sulfate Inj IVP 2 mg Q2HR PRN Administration Pain /Air hunger Morphine Sulfate 2 mg 01/15/18 16:15 01/20/18 04:36 Morphine Sulfate Inj IVP 2 mg Q2H PRN Administration Pain /Air hunger Morphine Sulfate 4 mg 01/17/18 02:43 01/17/18 02:49 Morphine Sulfate Inj IVP 01/17/18 02:44 4 mg O ONE Administration Nifedipine 60 mg 02/03/18 09:00 02/03/18 08:55 Procardia Xl PO 60 mg DAILY MYNOR Administration Ondansetron HCl 4 mg 01/14/18 22:45 02/02/18 14:51 Zofran IVP 4 mg Q4H PRN Administration Nausea &/or vomiting Pharmacy Consult 1 each 01/14/18 19:33 Pharmacy Consult - Fall Risk XX 01/14/18 19:34 ONE TIME ONE Pharmacy Consult 1 each 01/24/18 18:05 Pharmacy Consult - Fall Risk MC 01/24/18 18:06 ONE TIME ONE Pneumococcal 7-Valent Conj Vacc 0.5 ml 01/15/18 12:08 01/15/18 12:42 Prevnar 13 IM 01/15/18 12:09 0.5 ml .ONCE ONE Administration Polyethylene Glycol 17 gm 01/15/18 09:00 01/15/18 10:21 Miralax PO Not Given DAILY MYNOR Polyethylene Glycol 17 gm 01/16/18 09:00 02/03/18 08:56 Miralax PO 17 gm DAILY MYNOR Administration Senna/Docusate Sodium 1 tab 01/14/18 17:56 01/29/18 21:24 Senna Plus Tablet PO 1 tab BID PRN Administration Constipation Sodium Chloride 10 - 80 ml 01/14/18 15:35 01/27/18 12:36 Iv Flush IVF 10 ml PRN PRN Administration Flushing Tramadol HCl 50 mg 01/14/18 17:56 Ultram PO BID PRN Pain Tramadol HCl 50 mg 01/21/18 13:55 02/01/18 03:13 Ultram PO 50 mg Q6H PRN Administration Pain Trolamine Salicylate 1 applic 01/28/18 15:40 Aspercreme TOP PRN PRN - Urinary Catheter Management Straight Cath placed during this visit: no Results 02/02/18 04:22 02/03/18 04:28 Assessment and Plan - Assessment and Plan (1) Congestive heart failure Problem details: Diastolic Status: Chronic (2) Sinus arrest Status: Resolved (3) Chronic kidney disease Status: Chronic (4) Essential (primary) hypertension Status: Chronic (5) Mixed hyperlipidemia Status: Chronic (6) Morbid obesity with BMI of 50.0-59.9, adult Status: Chronic (7) PAF (paroxysmal atrial fibrillation) Status: Acute (8) NSVT (nonsustained ventricular tachycardia) Status: Acute - Attestation Attestation Narrative: 02/06/18 13:15 Recommendation After examining the patient I agree with the above assessment. I am involved in the formulation of the patient's plan of care. Hospital Course Summary Disclaimer: The visit summary below is not to be considered part of the above Progress Note.
[2018-02-03 10:25] VITALS: O2SAT 92
--- NOTE | 2018-02-03 11:51 | Discharge Summary ---
Discharge Information Date of admission: 01/14/18 17:20 Anticipated date of discharge: 02/03/18 Attending Physician: Madina Lau MD Primary care physician: Amanda Kan APRN Consults: 01/26/18 IRU Screening [Inpatient Rehab Screening] [CONS] Routine Screen requested by:: Family/Patient Comment Text:: RACHNA PRINCE IS CM. 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 Elevated PTH with vit D levels low; renal osteodystrophy, should improve with Vit D replacement Vitamin D deficiency with 25 hydroxy vitamin D level of 6 -1000 international units of vitamin D started this hospitalization Hypertension -fair control -she is currently off of atenolol due to bradycardia Type II DM -hemoglobin A1c 6.4-Ruvt-Dmrtu were monitored for the first week of the patient's stay and were mostly within range out treatment. Accu-Cheks were then discontinued. Hypercholesterolemia Diastolic heart failure - chronic Obstructive of sleep apnea with obesity hypoventilation syndrome - home BiPAP with O2 at night Chronic back pain Morbid obesity - BMI 62 Bradycardia with pauses-resolved since holding atenolol Paroxysmal atrial fibrillation-Eliquis started 01/29/2018 - Laboratory Labs: 02/02/18 04:22 02/03/18 04:28 On admission BUN was 68, creatinine 3.4, anion gap 16, potassium 5.6, BNP 4350 and lactate of 0.9. Pro-calcitonin was normal. TSH was 0.83 On admission, White count was 15.6, hemoglobin 12.2, platelets 436. Neutrophils 64% and bands 4% During the hospital course, BUN was as high as 129 and creatinine was as high as 3.6. 25 hydroxy vitamin D level was low at 6. (Normal is 30-100) PTH was elevated at 163.9 (normal is 38.2-70.7) UA on admission showed 2+ protein and trace bacteria C. difficile toxin on 01/18/2018 was negative - Microbiology Microbiology Blood cultures 2 on 01/14/2018 were negative after 5 days Blood cultures 2 on 01/16/2018 were negative after 5 days - Radiology Radiology: Chest x-ray on admission showed new moderate to severe pulmonary edema. Enlarging cardiac silhouette could be due to cardiomegaly or pericardial effusion. New perihilar airspace opacity with upper lobe consolidation bilaterally. Chest x-ray on 01/26/2018 showed improved congestive failure. No new or worsening airspace disease. Renal ultrasound on 01/15/2018 showed no hydronephrosis seen. Both kidneys are present with cortical thinning, but no gross hydronephrosis, obvious stone disease or renal masses. Right kidney 10.9 cm. Left kidney 11.8 cm 01/26/2018 bilateral venous Dopplers of the legs were negative for acute DVT Echocardiogram DATE OF STUDY 01/15/2018 INDICATIONS Pulmonary edema. TECHNICAL QUALITY Technically very difficult 2D, M-mode, Doppler echocardiographic images, due to quite challenging acoustic windows, were submitted for interpretation. FINDINGS 1. CARDIAC CHAMBERS: Left atrial diameter of 3.7 cm is normal. Left ventricle is dilated, measuring 6.1 cm. Right heart cardiac chambers don't appear enlarged. 2. LEFT VENTRICLE: Borderline concentric LVH is present. Wall motion analysis is abnormal. Posterior wall appears echogenic and thinned out as judged on limited views. LV function is judged based on very limited views, namely the parasternal long axis view and limited short axis view. There is probably mild LV systolic dysfunction. EF in the range of 45%-50%. This cannot be confirmed, however, due to difficult images. E/A is normal at 1.1. No tissue Doppler was performed for full diastolic function assessment. 3. VALVES: Aortic and mitral valve exhibit sclerotic changes. Visualization of the leaflets is quite poor due to very difficult acoustic windows. Doppler study shows questionable trace mitral regurgitation. No significant aortic stenosis with a mean gradient of only 9 mmHg, peak velocity of 2.1 m/sec and a valve area of 2.4. Trace tricuspid regurgitation with estimated systolic PA pressure of 26-31 mmHg. 4. Central venous pressure cannot be adequately assessed due to the patient being on BiPAP and exhibits a dilated IVC which is a nonspecific finding in the presence of positive intrathoracic pressure. 5. No evidence of pericardial effusion, intracardiac masses, thrombi, vegetations or demonstrable shunts on this very limited study. IMPRESSION 1. Left ventricular enlargement. 2. Mild concentric LVH. 3. LV systolic function appears mildly reduced based on very limited views. 4. No significant valvular dysfunction. 5. Clinically very difficult study due to poor acoustic windows caused by patient's body habitus, being on BiPAP and in ICU. History of Present Illness HPI: Sully is a 67-year-old female presents to the emergency department today complaining of dyspnea. Sully routinely utilizes oxygen at nighttime only, however, has noted that she is more dyspneic requiring oxygen more often recently. She reports that her dyspnea has been progressive over the past 2-3 days. At 1400. She began to feel increased shortness of breath and called EMS for further evaluation. She is found to have room air saturations of 76%. Patient was placed on BiPAP transported to the ER for further evaluation. CBC reveled leukocytosis with WBC count of 15.6, otherwise unremarkable. Potassium was found to be elevated at 5.6, BUNs 68, creatinine 3.4. Baseline creatinine does appear to be average 2.5 as she has known chronic kidney disease. Propene be 4350, troponin normal, venous lactate and pro calcitonin unremarkable. Urinalysis showed a trace of protein and trace bacteria, otherwise unremarkable. Chest x-ray did reveal new moderate to severe pulmonary edema. She was given Lasix 20 milligrams IV for gentle diuresis and was covered with empiric Rocephin IV. She was placed on BiPAP to help with tachypnea and dyspnea. Given the severity of her respiratory distress, accompanied with leukocytosis and acute kidney injury. The hospitalist services were contacted and accepted patient for inpatient mission to the ICU for further evaluation and treatment. We did discuss advanced directives. She does wish to be a do not resuscitate Objective Vital signs: Temperature 97.3 F 02/03/18 07:00 Pulse Rate 96 02/03/18 08:00 Respiratory Rate 18 02/03/18 07:00 Blood Pressure 153/71 H 04/24/18 07:00 Pulse Oximetry 92 02/03/18 10:24 Rhythm: Normal Sinus Rhythm Height/Weight/BMI: Height 1.7 m Weight 169.8 kg Body Mass Index 60.2 Comments: GEN-, oriented, no acute distress, sitting up in a chair CV-regular rate and rhythm CHEST-clear to auscultation bilaterally ABD-soft, obese, nontender with positive bowel sounds -no Velazquez EXT-no edema NEURO-no focal deficits SKIN-warm and dry Hospital Course This is a general summary of the patient's hospital course. For more details refer to the complete medical record. Hospital course: The patient was admitted with acute on chronic respiratory failure. At home she was on room air during the day and use BiPAP with 2 L of oxygen at night. She was admitted with pulmonary edema and pneumonia. She also had acute kidney injury. Her baseline creatinine is around 2.5. The patient was admitted to the intensive care unit and placed on BiPAP. She was placed on Bumex drip. A Velazquez catheter was placed. She did have good urine output and slow improvement in respiratory status. Echocardiogram and renal sonogram were obtained with results as above. PICC line was placed. She was given antibiotics on admission for suspected pneumonia. Over the hospital course, her breathing did improve. She was then transitioned off of Bumex drip and onto 3 times a day IV Bumex, and eventually oral Lasix. She continued to have hypoxia but this did slowly improve. On 01/25/2018 the patient was felt to be clinically dry and diuretics were discontinued. At this time her BUN was 115 and creatinine was 3.0. On 01/27/2018 Dr. Rod Taylor was consulted regarding the patient's acute on chronic kidney disease. He stated at baseline she has stage IV chronic kidney disease and creatinine baseline is 2.5. He stated she had acute kidney injury likely secondary to prerenal azotemia. He agreed with giving cautious IV fluids and holding diuretics. He recommended that the patient restart Lasix when her BUN and creatinine were closer to baseline. He also recommended that she remain off of hydrochlorothiazide. He discussed with her her worsening renal function, and they discussed the option of dialysis. She stated that she would not want dialysis even if it would prolong life. The patient was given 1-2 L of IV fluids per day over the next several days. At that time she was needing 2 L of oxygen. Oxygen needs did not increase. Her BUN and creatinine gradually improved. By the time of discharge, BUN was 50 and creatinine 2.4. She had been started on Lasix 40 mg once daily a few days prior to dismissal. Velazquez catheter was removed during the middle of her hospital course due to bladder spasms. She did have incontinence of urine but seem to be emptying her bladder without difficulty. During the hospital course, the patient developed bradycardia and sinus arrest with a 3.1 second pauses. Her atenolol was discontinued and Dr. Johnson was consulted. He recommended that she remain off of atenolol. She continued on telemetry. She did have episodes of A. fib with aberrancy versus questionable V. tach. The patient was started on Eliquis on 01/29/2018. Because of recurrent episodes of possible A. fib with aberrancy versus V. tach, amiodarone was initiated on 02/02/2018. Norvasc was discontinued and nifedipine was initiated for blood pressure control. By the end of the hospital course, the patient was on room air during the day and 2 L of oxygen with her home BiPAP at night. She was found to have vitamin D deficiency and elevated PTH, likely from renal osteodystrophy. She was placed on vitamin D 1000 international units daily. The patient was noted to have hypercalcemia when she was intravascularly dry, but this did resolve. Due to the patient's prolonged illness, she had marked generalized weakness. An IRU screen was initiated and the patient was felt to be an appropriate candidate for inpatient rehabilitation. Her insurance company did eventually okay for transfer to rehabilitation and plans were made for transfer on 2017. She will need to continue on telemetry. Dr. Johnson will be consulted to follow her there regarding initiation of amiodarone for A. fib with aberrancy versus V. tach. He did discuss with her that under normal circumstances, he would recommend heart catheterization. But because of her chronic kidney disease, he did not think she was a good candidate for heart catheterization due to the risk of worsening renal function with IV contrast. She did state understanding of this and agreed not to undergo heart catheterization. At the time of discharge O2 sat was 92% on room air while awake. Heart rate was 96. Blood pressure 153/71. Weight at discharge was 169.8 kg which had been stable over the past approximate 3-4 days. Admission weight was 176.6 kg. Discontinued home meds: Norvasc Atenolol Hydrochlorothiazide Resumed home Medications on transfer to inpatient rehabilitation will be: Acetaminophen 1000 mg by mouth in the morning at 07 100 and afternoon at 1400 Aspirin 162 mg by mouth twice a day Tylenol with diphenhydramine 2 by mouth at at bedtime Aspirin 162 mg by mouth twice a day Furosemide 40 mg once daily Linzess 145 mcg daily MiraLAX 17 g by mouth daily Ultram 50 mg by mouth twice a day [place] 5 one by mouth every 4 hours when necessary No medications on transfer to inpatient rehabilitation will be: Amiodarone 400 mg by mouth twice a day through 02/08/2018 then start 200 mg once daily Eliquis 2.5 mg by mouth twice a day Vitamin D 1000 international units by mouth daily Nifedipine 60 mg by mouth daily Zofran 4 mg IV every 4 hours when necessary senna plus Dr. Alcantara 1 by mouth twice a day when necessary Aspercreme topical to the knees when necessary Time spent with patient: discharge greater than 30 minutes Resuscitation Status: Do Not Resuscitate Discharge Plan - Discharge Disposition Disposition: 62 To [facility] [facility] *Condition: Improved Reason For Visit (Visit label in EMR): pulm edema, acute respiratory failure - Discharge Medications *Discharge Medications: Continue Aspirin [Aspirin EC] 162 mg PO BID Linaclotide [Linzess] 145 mcg PO DAILY Furosemide [Lasix 40 mg Tab] 40 mg PO DAILY Peg 3350 238 G Bottle [Miralax] 17 gm PO DAILY Acetaminophen/Diphenhydramine [Acetaminophen Pm Caplet] 2 tab PO HS Tramadol [Ultram] 50 mg PO BID PRN PRN Reason: Pain Discontinued Hydrocodone/APAP 5/325 [[place] 5/325] 1 tab PO Q6H PRN PRN Reason: Pain HydroCHLOROthiazide [HydroDIURIL] 50 mg PO DAILY Amlodipine [Norvasc] 10 mg PO DAILY Atenolol [Tenormin] 100 mg PO QAM Atenolol [Tenormin] 50 mg PO HS Acetaminophen [Acetaminophen ER] 1,300 mg PO BID - Discharge Packet/Instructions *Diet: 2 gram sodium diet *Activity: up to chair for meals and up with assist *Pain Management/Treatment: Tylenol, hydrocodone *Wound Care: Not applicable *Expected Signs/Symptoms: Weakness should gradually improve with physical and occupational therapy *Notify Physician if: Not applicable *During Business Hours Contact: Not applicable *After Business Hours Contact: Not applicable *Pending Lab/Results: No Pending Lab - IRU/GEN Discharge/Transfer - Referrals/Follow Up - Patient Handouts Patient Handouts: Pulmonary Edema (GEN) - Dismissal Complete Discharge Instructions are:: Complete Physician Narrative - Narrative Attestation Narrative: Date: 02/03/18 Time: 1136
[2018-02-03] MEDS: HYDROCODONE/APAP 5mg/325mg TABLET PO PRN (12:52)
[2018-02-09] MEDS ORDERED: AMIODARONE 200 MG TABLET PO SCH (09:00)
== END 2018-02-03 13:48 | DRG 291 ==
LOC: ED 15:29 → SUATTDRO 17:20 → CCU 17:20 → MED 01-19 14:16 → SRG 02-03 01:48
PROVIDERS: ADMIT Hospitalist; ATTEND Internal Medicine

== ENCOUNTER 2018-02-03 14:30 | Inpatient (IN) ==
--- NOTE | 2018-02-03 14:38 | IRU History & Physical Report ---
HPI IRU Date: Date: 02/03/18 Time: 1436 Chief complaint: I am very weak HPI: Ms. Sully Arshad is a very pleasant 67-year-old female referred by Dr. Shravan Garcia, [facility]. Her primary care provider is Amanda Kan APRN, [place]. The patient lives in [place] with her in their own home. She was admitted to [facility] after having presented to the emergency department with increasing shortness of breath. She reports that she had been having increasing shortness of breath for about a week. She initially thought she simply had a cold or respiratory infection. However she kept getting worse and worse. She denied any fever. She was noted to have pulmonary edema on chest radiograph in the emergency department. She was admitted for exacerbation of her diastolic heart failure with pulmonary edema and acute hypoxemic respiratory failure. Patient normally uses BiPAP at night at home with 2 L of oxygen. Since being in the hospital she has required additional oxygen supplementation during the daytime. She was managed initially with BiPAP during the day as well. The patient was seen by Dr. Johnson. Echocardiogram obtained on 01/15/2018 demonstrated increased left ventricular chamber size, mild left ventricular hypertrophy, reduced ejection fraction although difficult to quantitate in view of the quality of the study. PA pressure was estimated at 31 mmHg. It was a technically difficult study because of the patient's body habitus. The patient renal function is chronically reduced with Stage IV CKD. However, it worsened with her initial creatinine being 3.4. It has now dropped to 2.4 with eGFR 20. Renal ultrasound on 01/15/2018 was negative for hydronephrosis. Subsequent chest radiographs were obtained with improvement in her pulmonary edema findings. With diuresis, her weight has dropped from an initial 176.6 kg down to 169.8 kg. Her BMI is 58. She was monitored on telemetry. She has demonstrated paroxysmal atrial fibrillation and at one point appeared to have nonsustained ventricular tachycardia. She has been started on amiodarone by Dr. Johnson. There was also an episode of sinus arrest. Patient has declined intervention in terms of hemodialysis for her renal disease. During her hospitalization on [facility], Eliquis was begun on 01/29/2018. Amiodarone was begun yesterday on 02/02/2018. Troponin was negative on 4 occasions. Pro BNP was initially 4350 on 01/14/2018. On January 27 it dropped to 1800. The patient developed multiple functional deficits as a result of her respiratory decline and for this reason was transferred to acute inpatient rehabilitation for a multidisciplinary approach to her recovery. The patient lives at home with her in their own home. She uses a walker at home and is able to walk about 20 feet. He follows behind her in a wheelchair. She does have a Hoveround which she uses if she gets out of the house. She does have a bedside commode. She is able to shower in her own shower with the assistance of her . She also has a personal caregiver at times. She has a ramp to get up into her home. The patient had been on hospice for about 6 months which she states was due to severe sepsis. She is now off of hospice. She has not been plagued with peripheral edema this time around she states. Blood cultures have been negative 4 during the acute care admission. Electrocardiogram on 02/03/2018 demonstrated normal sinus mechanism with PVCs. I discussed with the patient the issue of resuscitation. She states that she does want CPR and DC counter shocks if necessary but does not want intubation nor mechanical ventilation. She does not want a prolonged resuscitative episode she states. She also has history of diabetes mellitus type 2 but her A1c is good at around 6.5%. She is plagued by constipation. She has been on Linzess plus MiraLAX with which she thinks is too much for her. She would like to be on Linzess alone. Prior level of function is as follows: Patient was modified independent for eating and grooming and walking with a rolling walker 20 feet. She required minimum assistance for bathing and upper body dressing but moderate assistance for lower body dressing and toileting. She required minimum assistance for bed/ chair/wheelchair transfers and toilet transfers. She was independent in a wheelchair. Current level of function is as follows: She is modified independent for eating , require supervision for grooming, total assistance for toileting, bed/chair/ wheelchair transfers, toilet transfers and walking. She is unable to walk at this time. She does demonstrate markedly decreased strength, endurance and limited range of motion. She does complain of pain in the back along with increased fatigue and reduced exercise intolerance. She is awake alert and oriented. The following medical conditions are noted and require active monitoring and/or management: 1. Acute hypoxemic and hypercapnic respiratory failure with pulmonary edema. Her pulmonary edema is improved at this time but she continues to demonstrate evidence of dyspnea with activity and requires occasional oxygen supplementation. 2. Diastolic heart failure, acute on chronic with pulmonary edema 3. Acute on chronic kidney injury 4. Morbid obesity 5. Diabetes mellitus type 2, not on long-term insulin 6. Obstructive sleep apnea with obesity/hypoventilation syndrome on home BiPAP 7. Chronic back pain with osteoarthritis 8. Slow transit constipation 9. Cardiac dysrhythmias characterized by paroxysmal atrial fibrillation and nonsustained ventricular tachycardia. Patient has now been started on amiodarone as of yesterday. The following therapies will be needed: 1. Physical therapy: for transfers and ambulation and stairs. 2. Occupational therapy: for ADL's and transfers. 3. Medical management: for the above conditions. 4. 24 hour Rehabilitation Nursing to monitor and address the following: To carefully monitor cardiac function/diastolic heart failure, arrhythmia, oxygen saturations and to provide adequate oxygen supplementation along with appropriate use of BiPAP at night and to reduce fall risk. [facility] Patient Stated Medical History Congestive Heart Failure Yes Hypertension Yes Sleep Apnea Yes Diabetes Mellitus Type 2 Yes: denies taking any current meds, says AIC has been ok Hx Renal Disease Yes Hx Urinary Tract Infection Yes Other Yes: CKD stage 3 Other Musculoskeletal Yes: chronic knee Sepsis Yes Blood Transfusions Yes: when she had hysterectomy Medical History Updates: Type II diabetes. Chronic kidney disease-stage IV. Obesity hypoventilation syndrome. Hypercholesterolemia. Hypertension. Hyperlipidemia. Chronic diastolic heart failure. Chronic back pain. Morbid obesity- BMI 62% Surgical History: Exploratory laparotomy, lysis of adhesions and decompression colonoscopy. 11-13-2010 [facility]. Sigmoid resection (many years prior to 2010) . Colonoscopy and decompression 11/26/2010 [facility]. Hysterectomy & bilateral salpingo-oophorectomy. Right bunionectomy. Right knee arthroscopy Family History: Patient reports that both of her parents of "old age." One brother had a brain tumor. Another brother had heart disease and diabetes. Sister has had hypertension. - Social History Smoking status: Never smoker Substance use type: does not use Alcohol intake: never Alcohol intake frequency: does not drink Housing: house Household members: spouse Current residence: Apartment/Private Home Social history: Patient had been on hospice for about 6 months but is no longer. She lives in her own home with her here in [facility]. Review of Systems - Constitutional Constitutional: Present: fatigue, lethargy, weakness. Absent: anorexia, chills , fever(s), headache(s), malaise, night sweats, weight gain, weight loss - EENMT Eyes: Absent: blurry vision, change in vision, diplopia Mouth/Throat: Absent: changes in swallowing, painful swallowing, change in taste , bleeding gums, change in voice - Cardiovascular Cardiovascular: Absent: chest pain, palpitations, syncope, dyspnea on exertion, orthopnea, edema, cyanosis, heart murmur Rhythm: Present: regular rhythm Vascular: Absent: intermittent claudication, pedal edema, unilateral swelling - Respiratory Respiratory: Present: dyspnea, dyspnea on exertion. Absent: cough, hemoptysis, wheezing, pain on inspiration, chest congestion, excessive phlegm production - Gastrointestinal Gastrointestinal: Present: constipation. Absent: abdominal pain, change in bowel habits, diarrhea, dyspepsia, dysphagia, early satiety, hematochezia, melena, nausea, vomiting - Musculoskeletal Musculoskeletal: Present: myalgias. Absent: abnormal gait, arthralgias, back pain, joint swelling, limited range of motion, muscle weakness - Integumentary/Breasts Integumentary: Absent: alopecia, erythema, lesions, pruritus, rash, jaundice - Neurological Neurological: Present: weakness. Absent: abnormal gait, abnormal movements, abnormal speech, confusion, convulsions, dizziness, focal weakness, frequent falls, headache(s), loss of vision, memory loss, numbness, paresthesias, tremor( s) - Psychiatric Psychiatric: Absent: abnormal sleep pattern, anxiety, depression - Endocrine Endocrine: Absent: cold intolerance, flushing, heat intolerance, palpitations - Hematologic/Lymphatic Hematologic/Lymphatic: Absent: easy bleeding, easy bruising, lymphadenopathy - Allergic/Immunologic Allergic/Immunologic: Absent: urticaria Medications Home Medications Medication Instructions Recorded Confirmed Type Acetaminophen/Diphenhydramine 2 tab PO HS 01/14/18 01/14/18 History [Acetaminophen Pm Caplet] Aspirin [Aspirin EC] 162 mg PO BID 01/14/18 01/14/18 History Furosemide [Lasix 40 mg Tab] 40 mg PO DAILY 01/14/18 01/14/18 History Linaclotide [Linzess] 145 mcg PO DAILY 01/14/18 01/14/18 History Peg 3350 238 G Bottle [Miralax] 17 gm PO DAILY 01/14/18 01/14/18 History Tramadol [Ultram] 50 mg PO BID PRN 01/14/18 01/14/18 History Allergies Allergy/AdvReac Type Severity Reaction Status Date / Time doxazosin Allergy Mild Verified 01/14/18 15:48 lisinopril AdvReac Intermediate VOMITTING Verified 01/14/18 15:48 gabapentin AdvReac Unknown Verified 01/14/18 15:48 Results IRU - Labs Labs: I have reviewed extensive inpatient records. Exam - Constitutional Present: no acute distress, well nourished, well developed, morbidly obese, cooperative - Routine HEENT Exam Head: Present: normocephalic, atraumatic. Absent: cushingoid faces, abrasion, laceration, hematoma Eye: Present: EOMI, PERRL. Absent: conjunctival icterus, scleral injection, periorbital swelling, nystagmus ENT: Present: mucous membranes moist, oropharynx clear, dentition normal - Routine Neck Exam Present: supple, full ROM, trachea midline. Absent: lymphadenopathy, thyromegaly, tenderness, swelling - Routine Chest/Breast/Axilla Exam Chest wall: Absent: tenderness, mass Axillae: Absent: lymphadenopathy, mass - Routine Respiratory Exam Present: decreased breath sounds, CTA bilaterally. Absent: accessory muscle use , prolonged expiratory phase, rales, respiratory distress, rhonchi, stridor, wheezes, crackles, distant breath sounds - Routine Cardiovascular Exam Present: RRR, S1, S2, no murmur. Absent: gallop, S3, S4, click, irregular rhythm Comments: Somewhat distant heart sounds. - Routine Abdominal Exam Present: soft, normoactive bowel sounds, non distended, non tender. Absent: rebound, guarding, firm, rigid, organomegaly, mass, hernia, wound - Routine Extremities Exam Present: no edema, non tender, normal capillary refill. Absent: cyanosis, clubbing - Routine Back/Spine/Pelvis Exam Back/Spine: Present: full ROM. Absent: scoliosis, kyphosis - Routine Skin Exam Present: intact, dry, warm. Absent: cyanosis, erythema, pallor, mottling, petechiae, urticaria, lesions, jaundice - Routine Neurological Exam Present: alert, oriented X3, CN II-XII intact, moving all extremities, normal speech. Absent: facial asymmetry - Routine Psychiatric Exam Present: normal affect, normal thought process, cooperative, good insight, good judgment. Absent: depressed, anxious Sepsis Assessment - Evaluation Severe Sepsis: none seen IRU A/P (1) Acute on chronic respiratory failure with hypoxemia Current visit: Yes Status: Acute Patient's oxygen requirements have been greatly reduced. She still require oxygen at night with her BiPAP. We will monitor carefully her saturations during the daytime. (2) Diastolic CHF, acute on chronic Current visit: Yes Status: Acute She has recently experienced pulmonary edema, presumably related to worsening diastolic heart failure. This has improved based on the most recent chest radiograph but has caused her to be significantly weak and continues to have dyspnea. (3) Acute on chronic kidney failure Qualifiers: Acute renal failure type: unspecified Chronic kidney disease stage: stage 4 (severe) Qualified Code(s): N17.9 - Acute kidney failure, unspecified; N18.4 - Chronic kidney disease, stage 4 (severe) Current visit: Yes Status: Acute She continues to have evidence of stage IV chronic kidney disease. Her acute kidney failure has improved with improvement of creatinine from 3.4 down to 2.4. (4) NSVT (nonsustained ventricular tachycardia) Current visit: No Status: Acute She had what appeared to be nonsustained ventricular tachycardia on acute care. We will continue telemetry in this regard. (5) PAF (paroxysmal atrial fibrillation) Current visit: No Status: Acute (6) Essential (primary) hypertension Current visit: No Status: Chronic (7) Morbid obesity with BMI of 50.0-59.9, adult Current visit: No Status: Chronic DVT Prophylaxis: SCD's Resuscitation Status: Do Not Intubate - Course Hospital Course: Tevin Rice MD: - Interventions to Obtain Goals PT Treatment Plan: Balance/Proprioception, Functional Activities, Gait Training , Patient/Family Education, Therapeutic Exercise OT Treatment Plan: ADL (Basic Care), Balance Training, IADL, Pt./Family Education, Ther. Exercise for ADL Goals Progress/Modifications: This medically complex patient with recent acute on chronic respiratory failure with combined hypoxemia and hypercapnia secondary to pulmonary edema from her diastolic heart failure, has experienced a decline in her overall functional capability. She requires a multidisciplinary approach with physical therapy, occupational therapy, 24 hour rehabilitation nursing monitoring of cardiac function and pulmonary function along with medical supervision in order to allow her to return to her home.
[2018-02-03] MEDS ORDERED: SENNA + DOCUSATE TABLET PO PRN (14:41)
[2018-02-03] MEDS ORDERED: FALL RISK - PHARMACY CONSULT MC ONE (14:41)
--- NOTE | 2018-02-03 14:48 | IRU 24Hr Post Admit Eval ---
24 Hr Post Admission Physical - Relevant Changes Relevant Changes: No Reviewed: I have reviewed the patient's information and concur with the finding and results of the pre-admission screen. Certification: I certify the patient for rehabilitation. - Patient Condition (1) Acute on chronic respiratory failure with hypoxemia Status: Acute Code(s): J96.21 - Acute and chronic respiratory failure with hypoxia Classification: IRF Tx That Should Address Diagnosis, Diagnosis Requiring Medical Follow Up (2) Diastolic CHF, acute on chronic Status: Acute Code(s): I50.33 - Acute on chronic diastolic (congestive) heart failure Classification: Present on IRF Admission, IRF Tx That Should Address Diagnosis, Diagnosis Requiring Medical Follow Up (3) Acute on chronic kidney failure Status: Acute Qualifiers: Acute renal failure type: unspecified Chronic kidney disease stage: stage 4 (severe) Qualified Code(s): N17.9 - Acute kidney failure, unspecified; N18.4 - Chronic kidney disease, stage 4 (severe) Code(s): N17.9 - Acute kidney failure, unspecified; N18.9 - Chronic kidney disease, unspecified Classification: IRF Tx That Should Address Diagnosis, Diagnosis Requiring Medical Follow Up (4) NSVT (nonsustained ventricular tachycardia) Status: Acute Code(s): I47.2 - Ventricular tachycardia Classification: IRF Tx That Should Address Diagnosis, Diagnosis Requiring Medical Follow Up (5) PAF (paroxysmal atrial fibrillation) Status: Acute Code(s): I48.0 - Paroxysmal atrial fibrillation Classification: IRF Tx That Should Address Diagnosis, Diagnosis Requiring Medical Follow Up (6) Essential (primary) hypertension Status: Chronic Code(s): I10 - Essential (primary) hypertension Classification: Present on IRF Admission, IRF Tx That Should Address Diagnosis, Diagnosis Requiring Medical Follow Up (7) Morbid obesity with BMI of 50.0-59.9, adult Status: Chronic Code(s): E66.01 - Morbid (severe) obesity due to excess calories; Z68.43 - Body mass index (BMI) 50-59.9 , adult Classification: Present on IRF Admission, Diagnosis Requiring Medical Follow Up - Prior Functional Status Lives With: Spouse Residence Type: Apartment/Private Home Assitive Devices: Four Wheeled Walker, Motorized Wheelchair Prior Functional Status: Depend. at home or school, Depend. w/ IADL - Current Functional Status Current Level of Function: Current level of function is as follows: She is modified independent for eating , require supervision for grooming, total assistance for toileting, bed/chair/ wheelchair transfers, toilet transfers and walking. She is unable to walk at this time. She does demonstrate markedly decreased strength, endurance and limited range of motion. She does complain of pain in the back along with increased fatigue and reduced exercise intolerance. She is awake alert and oriented. Failed Alternative Therapy: Arrived from Acute Care Patient Requirements: The patient requires oversight by rehabilitation physician to manage their rehabilitation treatment plan and multidisciplinary approach to care that can only be provided in an IRF and requires a multidisciplinary approach to care, provided by professional PTs, OTs, STs, dieticians, RTs, rehabilitation nurses and is not available in lesser levels of care. Limitations Req: Mobility Impairment, ADL Impairment, Limited Mobility, Respiratory Impairment Therapy: The patient is to receive therapy at least 5 days a week. Plan of Care Comment: This patient is severely debilitated. For this reason the patient will receive 900 minutes of therapy over 6 days weekly. - Complications/Comorbidities Impact on Functional Outcomes: Patient's debilitation and respiratory failure along with diastolic heart failure will negatively impact her functional outcome. Barriers to Discharge: Weakness, Endurance, Medical Limitation - Plan to Avoid Complications Plan to Avoid Complications: The patient cannot receive this care in a lesser intensive setting such as Snf or Outpatient Therapy due to the patient requiring the following : This patient is medically complex with recent pulmonary edema resulting in acute on chronic hypoxemic and hypercapnic respiratory failure requiring noninvasive ventilation (BiPAP). She is improved but as a result has suffered multiple functional deficits. She requires 24 hour rehabilitation nursing monitoring of her cardiac and pulmonary function with measurement of oxygen saturations, blood pressures and monitoring of her heart rhythm on telemetry. She requires a multidisciplinary approach with physical therapy and occupational therapy with medical supervision. This is not available at a less intensive setting.
[2018-02-03] MEDS ORDERED: POLYETHYL GLYCOL 3350 17gm PACKET PO PRN (15:15)
[2018-02-03] MEDS: AMIODARONE 200 MG TABLET PO SCH (20:43)
[2018-02-03] MEDS: APIXABAN 2.5 MG TABLET PO SCH (20:44)
[2018-02-03] MEDS: APAP/DIPHENHYDRAMINE 500 MG/25 MG TABLET PO SCH (20:44)
[2018-02-03] MEDS: ASPIRIN *EC* 81 MG TABLET PO SCH (20:45)
[2018-02-03] MEDS ORDERED: ATENOLOL 50 MG TABLET PO SCH (21:00)
[2018-02-04] MEDS: HYDROCODONE/APAP 5mg/325mg TABLET PO PRN ×2 (02:00→13:04)
[2018-02-04] MEDS: ACETAMINOPHEN 500 MG TABLET PO SCH ×2 (06:29→16:57)
--- NOTE | 2018-02-04 07:57 | Cardiology Consult Note ---
<Montse Valenzuela - Last Filed: 02/05/18 12:46> History of Present Illness Consult date: 02/03/18 Requesting physician: Tevin Rice Chief complaint: sinus pauses, afib, Vtach History of present illness: Sully is a 67-year-old female who we recently saw during her acute care hospitalization at [facility] for exacerbation of her diastolic heart failure with pulmonary edema and acute hypoxemic respiratory failure. Initially we were consulted for pauses seen on here telemetry which were sinus arrest pauses, likely due to vagal response when getting up from bed; Atenolol was held. She also had some arrhythmia that looked like V tach but was in fact A Fib with aberrancy, she was started on Eliquis 2.5mg for stroke prevention. Most recently she had some possible V Tach on telemetry which Dr. Johnson could not be 100% sure of rhythm so she was started on Amiodarone taper for antiarrhythmic therapy. Echocardiogram obtained on 01/15/2018 demonstrated increased left ventricular chamber size, mild left ventricular hypertrophy, reduced ejection fraction although difficult to quantitate in view of the quality of the study. PA pressure was estimated at 31 mmHg. It was a technically difficult study because of the patient's body habitus. Review of Systems - Constitutional Constitutional: Present: fatigue, weakness. Absent: chills, fever(s) - EENMT Eyes: Absent: change in vision Balance: Absent: vertigo Mouth/Throat: Absent: sore throat - Cardiovascular Cardiovascular: Present: dyspnea on exertion, orthopnea. Absent: chest pain, palpitations, syncope Rhythm: Present: abnormal rhythm Vascular: Absent: pedal edema - Respiratory Respiratory: Present: dyspnea, dyspnea on exertion - Gastrointestinal Gastrointestinal: Present: constipation. Absent: abdominal pain, diarrhea, nausea, vomiting - Genitourinary Genitourinary: Absent: dysuria - Musculoskeletal Musculoskeletal: Present: myalgias - Integumentary/Breasts Integumentary: Absent: rash - Neurological Neurological: Absent: dizziness - Endocrine Endocrine: Absent: palpitations PFSH Patient Stated Medical History Congestive Heart Failure Yes Hypertension Yes Sleep Apnea Yes Diabetes Mellitus Type 2 Yes: denies taking any current meds, says AIC has been ok Hx Incontinence Yes Hx Renal Disease Yes Hx Urinary Tract Infection Yes Other Yes: CKD stage 3 Other Musculoskeletal Yes: chronic knee Cellulitis Yes Sepsis Yes Blood Transfusions Yes: when she had hysterectomy Medical History Updates: Type II diabetes. Chronic kidney disease-stage IV. Obesity hypoventilation syndrome. Hypercholesterolemia. Hypertension. Hyperlipidemia. Chronic diastolic heart failure. Chronic back pain. Morbid obesity- BMI 62% Surgical History: Exploratory laparotomy, lysis of adhesions and decompression colonoscopy. 11-13-2010 [facility]. Sigmoid resection (many years prior to 2010) . Colonoscopy and decompression 11/26/2010 [facility]. Hysterectomy & bilateral salpingo-oophorectomy. Right bunionectomy. Right knee arthroscopy Family History: Brother - brain cancer Brother - heart disease, diabetes Sister - HTN both parents of old age - Social History Smoking status: Never smoker Substance use type: does not use Alcohol intake: never Alcohol intake frequency: does not drink Housing: house Household members: spouse Current residence: Apartment/Private Home Medications Home Medications Medication Instructions Recorded Confirmed Type Acetaminophen/Diphenhydramine 2 tab PO HS 01/14/18 02/03/18 History [Acetaminophen Pm Caplet] Aspirin [Aspirin EC] 162 mg PO BID 01/14/18 02/03/18 History Furosemide [Lasix 40 mg Tab] 40 mg PO DAILY 01/14/18 02/03/18 History Linaclotide [Linzess] 145 mcg PO DAILY 01/14/18 02/03/18 History Peg 3350 238 G Bottle [Miralax] 17 gm PO DAILY 01/14/18 02/03/18 History Tramadol [Ultram] 50 mg PO BID PRN 01/14/18 02/03/18 History Allergies Allergy/AdvReac Type Severity Reaction Status Date / Time doxazosin Allergy Mild Verified 01/14/18 15:48 lisinopril AdvReac Intermediate VOMITTING Verified 01/14/18 15:48 gabapentin AdvReac Unknown Verified 01/14/18 15:48 Exam Vital signs: Temperature 98.8 F 02/03/18 21:00 Pulse Rate 77 02/04/18 00:00 Respiratory Rate 16 02/03/18 22:28 Blood Pressure 133/65 02/03/18 21:00 Pulse Oximetry 91 02/03/18 21:00 - Constitutional no acute distress, morbidly obese, cooperative - Routine HEENT Exam Head: Present: normocephalic ENT: Present: mucous membranes moist - Routine Neck Exam Absent: JVD, carotid bruit - Routine Chest/Breast/Axilla Exam Chest wall: Absent: tenderness - Routine Respiratory Exam Present: decreased breath sounds, CTA bilaterally. Absent: rales, wheezes - Routine Cardiovascular Exam Present: RRR, no murmur - Routine Abdominal Exam Present: soft, non tender - Routine Extremities Exam Present: no edema - Routine Skin Exam Present: intact, dry, warm - Routine Neurological Exam Present: alert, oriented X3 - Routine Psychiatric Exam Present: normal affect, normal thought process Results 02/05/18 05:38 02/05/18 05:38 CBC 02/04/18 Range/Units 05:14 WBC 9.2 (4.5-11.0) T/MM3 RBC 3.52 L (4.00-5.20) M/MM3 Hgb 10.3 L (12-16) GM/DL Hct 34.1 L (36-46) % Plt Count 237 (130-400) T/MM3 Neut # (Auto) 5.6 (1.8-7.7) T/MM3 Lymph # (Auto) 2.6 (1-4.8) T/MM3 Hunt # (Auto) 0.6 (0-0.8) T/MM3 Eos # (Auto) 0.4 (0-0.5) T/MM3 Baso # (Auto) 0.0 (0-0.2) T/MM3 Comprehensive Metabolic Panel 02/04/18 Range/Units 05:14 Sodium 144 (134-144) MEQ/L Potassium 4.8 (3.6-5) MEQ/L Chloride 108 H (98-107) MEQ/L Carbon Dioxide 25 (22-30) MEQ/L BUN 52.0 H* (7-17) MG/DL Creatinine 2.9 H D (0.7-1.2) mg/dL Glucose 105 (65-110) MG/DL Calcium 8.9 (8.4-10.2) MG/DL Intake and Output 02/03/18 02/04/18 02/04/18 22:59 06:59 14:59 Intake Total 600 / 600 Balance 600 / 600 Intake: Oral 600 / 600 Other: Urine Color Yellow Urine Odor Normal # Voids 1 Assessment and Plan - Assessment and Plan (1) PAF (paroxysmal atrial fibrillation) Current visit: No Status: Acute PAF: Continue Eliquis 2.5mg BID for stroke prevention - Continue to monitor cardiac telemetry - HGB/ platelets stable (2) Sinus arrest Current visit: No Status: Resolved Pauses resolved - Received Atenolol 50mg last evening, no pauses noted on telemetry - Will resume low dose BB tomorrow AM (3) Essential (primary) hypertension Current visit: No Status: Chronic HTN: Continue Nifedipine 60mg daily (4) Mixed hyperlipidemia Current visit: No Status: Chronic (5) Chronic kidney disease Current visit: No Status: Chronic (6) Morbid obesity with BMI of 50.0-59.9, adult Current visit: No Status: Chronic (7) NSVT (nonsustained ventricular tachycardia) Current visit: No Status: Acute NSVT: Continue Amiodarone 400mg BID for 1 week then 200mg daily - Not a candidate for LHC due to CKD and elevated BUN/SCr - EKG now - monitor cardiac telemetry - Assessment and Plan Sinus Arrest Pauses resolved - Received Atenolol 50mg last evening, no pauses noted on telemetry - Will resume low dose BB this evening and watch telemetry for pauses NSVT: Continue Amiodarone 400mg BID for 1 week then 200mg daily - Not a candidate for LHC due to CKD and elevated BUN/SCr - EKG now - monitor cardiac telemetry PAF: Continue Eliquis 2.5mg BID for stroke prevention - Continue to monitor cardiac telemetry - HGB/ platelets stable HTN: Continue Nifedipine 60mg daily CKD:BUN 52/ Scr 2.9 - Seen by - Does not want hemodialysis. Diastolic CHF Mixed hyperlipidemia Morbid obesity with BMI of 50.0-59.9, adult Thank you for allowing us to participate in the care of this patient. Hospital Course Summary Disclaimer: The visit summary below is not to be considered part of the above Progress Note. <Spencer Johnson - Last Filed: 02/06/18 14:43> [facility] Patient Stated Medical History Congestive Heart Failure Yes Hypertension Yes Sleep Apnea Yes Diabetes Mellitus Type 2 Yes: denies taking any current meds, says AIC has been ok Hx Incontinence Yes Hx Renal Disease Yes Hx Urinary Tract Infection Yes Other Yes: CKD stage 3 Other Musculoskeletal Yes: chronic knee Cellulitis Yes Sepsis Yes Blood Transfusions Yes: when she had hysterectomy Exam Vital signs: Temperature 97.7 F 02/06/18 12:54 Pulse Rate 69 02/06/18 12:54 Respiratory Rate 18 02/06/18 12:54 Blood Pressure 145/68 H 02/06/18 12:54 Pulse Oximetry 92 02/06/18 12:54 Results 02/06/18 04:40 02/06/18 04:40 CBC 02/06/18 Range/Units 04:40 WBC 8.8 (4.5-11.0) T/MM3 RBC 3.47 L (4.00-5.20) M/MM3 Hgb 10.2 L (12-16) GM/DL Hct 32.9 L (36-46) % Plt Count 205 (130-400) T/MM3 Neut # (Auto) 5.3 (1.8-7.7) T/MM3 Lymph # (Auto) 2.4 (1-4.8) T/MM3 Hunt # (Auto) 0.7 (0-0.8) T/MM3 Eos # (Auto) 0.4 (0-0.5) T/MM3 Baso # (Auto) 0.0 (0-0.2) T/MM3 Comprehensive Metabolic Panel 02/06/18 Range/Units 04:40 Sodium 139 (134-144) MEQ/L Potassium 4.2 (3.6-5) MEQ/L Chloride 104 (98-107) MEQ/L Carbon Dioxide 21 L (22-30) MEQ/L BUN 64.0 H* (7-17) MG/DL Creatinine 3.8 H (0.7-1.2) mg/dL Glucose 103 (65-110) MG/DL Calcium 8.1 L D (8.4-10.2) MG/DL Intake and Output 02/05/18 02/06/18 02/06/18 22:59 06:59 14:59 Intake Total 500 / 500 500 / 500 Balance 500 / 500 500 / 500 Intake: IV 500 / 500 500 / 500 NS 500ml 500 ml @ 150 mls/hr IV 500 / 500 .Q3H20M ONE Rx#:[id number] Ns 500 ml @ 250 mls/hr IV .Q2H 500 / 500 MYNOR Rx#:[id number] Other: Urine Appearance Clear Clear Urine Color Dark Yellow Yellow Yellow Urine Odor Normal Normal Stool Color Brown Brown Stool Consistency Loose Watery Size of Bowel Movement Small Small # Voids 1 1 1 # Bowel Movements 1 1 Assessment and Plan - Attestation Attestation Narrative: 02/06/18 14:43 Recommendation After examining the patient I agree with the above assessment. I am involved in the formulation of the patient's plan of care. - Assessment and Plan (1) Sinus arrest Current visit: No Status: Resolved (2) Chronic kidney disease Current visit: No Status: Chronic (3) Essential (primary) hypertension Current visit: No Status: Chronic (4) Mixed hyperlipidemia Current visit: No Status: Chronic (5) Morbid obesity with BMI of 50.0-59.9, adult Current visit: No Status: Chronic (6) PAF (paroxysmal atrial fibrillation) Current visit: No Status: Acute (7) NSVT (nonsustained ventricular tachycardia) Current visit: No Status: Acute Hospital Course Summary Disclaimer: The visit summary below is not to be considered part of the above Progress Note.
--- NOTE | 2018-02-04 08:19 | IRU Plan of Care ---
[facility] Overall Plan of Care - Date Date: 02/04/18 - Patient Impairments (1) Acute on chronic respiratory failure with hypoxemia Code(s): J96.21 - Acute and chronic respiratory failure with hypoxia Status: Acute Classification: IRF Tx That Should Address Diagnosis, Diagnosis Requiring Medical Follow Up (2) Acute on chronic kidney failure Qualifiers: Acute renal failure type: unspecified Chronic kidney disease stage: stage 4 (severe) Qualified Code(s): N17.9 - Acute kidney failure, unspecified; N18.4 - Chronic kidney disease, stage 4 (severe) Code(s): N17.9 - Acute kidney failure, unspecified; N18.9 - Chronic kidney disease, unspecified Status: Acute Classification: IRF Tx That Should Address Diagnosis, Diagnosis Requiring Medical Follow Up (3) Diastolic CHF, acute on chronic Code(s): I50.33 - Acute on chronic diastolic (congestive) heart failure Status : Acute Classification: Present on IRF Admission, IRF Tx That Should Address Diagnosis, Diagnosis Requiring Medical Follow Up (4) PAF (paroxysmal atrial fibrillation) Code(s): I48.0 - Paroxysmal atrial fibrillation Status: Acute Classification: IRF Tx That Should Address Diagnosis, Diagnosis Requiring Medical Follow Up - Relevant Changes Relevant Changes: No Reviewed: I have reviewed the patient's information and concur with the finding and results of the pre-admission screen. Certification: I certify the patient for rehabilitation. - Medical Prognosis Medical Prognosis: Fair Vital Signs: Last Vital Signs Temp 98.1 F 02/04/18 08:00 Pulse 76 02/04/18 08:00 Resp 24 02/04/18 08:00 BP 137/82 02/04/18 08:00 Pulse Ox 90 02/04/18 08:00 - Anticipated Interventions Anticipated Interventions: The patient requires inpatient IRF care for PT, OT, and/or ST for residuals remaining from acute on chronic hypoxemic respiratory failure and acute on chronic diastolic heart failure with pulmonary edema resulting in muscular weakness and strength deficits. - Current Functional Status Failed Alternative Therapy: Arrived from Acute Care Patient Requires: The patient requires oversight by rehabilitation physician to manage their rehabilitation treatment plan and multidisciplinary approach to care that can only be provided in an IRF and requires a multidisciplinary approach to care, provided by professional PTs, OTs, STs, rehabilitation nurses, and may require STs, dieticians, and RTS. This is not available in lesser levels of care. Therapy: The patient is to receive therapy at least 5 days a week. Comments: 900 minutes of therapy over 6 days for PT and OT due to patient's severe debilitation. - Anticipated LOS/Outcomes Anticipated Functional Outcome: It is anticipated the patient will be able to return to her home, walk 20 ft with a walker with one person assist and able to perform more ADL's at modified independent level. She will still require help with iADL's. It is anticipated that her respiratory function and cardiac failure will be compensated and stable at the time of dismissal. Anticipated Length of Stay (days): 14 Anticipated DC Destination: Home, Self Care, Home Health Service Home Safety Plan: The patient will be provided with the development of a Home Safety Plan for return to a home or home-like environment and and to ensure safety post discharge. - Plan to Avoid Complications Barriers to Attaining Goals: Weakness, Endurance, Medical Limitation Plan to Avoid Complications: The patient cannot receive this care in a lesser intensive setting such as Penitentiary or Outpatient Therapy due to the patient requiring the following : Patient was recently started on Amiodarone and anticoagulation. She requires telemetry and close monitoring of her cardiac and pulmonary status by 24 hour rehab nursing and medical supervision. She requires PT and OT in a coordinated fashion due to her debilitation. This can not be provided at a less intensive level of care .
[2018-02-04] MEDS: APIXABAN 2.5 MG TABLET PO SCH ×2 (08:30→20:44)
[2018-02-04] MEDS: ASPIRIN *EC* 81 MG TABLET PO SCH ×2 (08:30→20:41)
[2018-02-04] MEDS: FUROSEMIDE 40 MG TABLET PO SCH (08:30)
[2018-02-04] MEDS: LINACLOTIDE 145 MCG CAPSULE PO SCH (08:30)
[2018-02-04] MEDS: AMIODARONE 200 MG TABLET PO SCH ×2 (08:34→20:43)
[2018-02-04] MEDS: SALINE FLUSH 10ml SYRINGE IVF PRN (08:37)
[2018-02-04] MEDS ORDERED: POLYETHYL GLYCOL 3350 17gm PACKET PO SCH (09:00)
--- NOTE | 2018-02-04 12:07 | Consult Note ---
Consult Information - Data of Consult Consult date: 02/04/18 Requesting Physician: Tevin Rice MD Primary Care Provider: Amanda Kan APRN Family Provider: Amanda Kan APRN - Consult Narrative Reason for consult: generalizd weakness, debility, afib, recent BINU History of present illness: Sully Arshad is a very pleasant 67-year-old female patient of Amanda Kan APRN , in [place]. She was admitted to [facility] on 01/14/18 after having presented [place] [facility] [place] with increasing shortness of breath. Upon initial evaluation by EMS in her home, she was found to have a room air saturation of 76% and placed on BiPAP during transport to the ED. She reports that she had been having increasing shortness of breath for about a week prior to being seen in the ED. She initially thought she simply had a cold or respiratory infection, however her dyspnea progressively worsened requiring her to utilize home oxygen during the day. She admits to using home oxygen at 2L with BIPAP at night chronically. She denied any known fevers at that time. CXR in the ED revealed new moderate to severe pulmonary edema. CBC reveled leukocytosis with WBC count of 15.6, otherwise unremarkable. Potassium was found to be elevated at 5.6, BUNs 68, creatinine 3.4. Baseline creatinine does appear to be average 2.5 as she has known chronic kidney disease. BNP was elevated at 4350, troponin was normal, venous lactate and pro calcitonin unremarkable. Urinalysis showed a trace of protein and trace bacteria, otherwise unremarkable. She was given Lasix 20mg IV for gentle diuresis and Rocephin was initiated for empiric coverage of possible pulmonary pathogens. She was admitted to the hospitalist service for exacerbation of her diastolic heart failure with pulmonary edema and acute hypoxemic respiratory failure with leukocytosis and acute kidney injury. She was initially admitted to the ICU due to her severe respiratory failure requiring continuous BiPAP. She was placed on a Bumex drip for continued diuresis with slow improvement in her respiratory status. Echocardiogram was obtained and revealed LVH with LV systolic function mildly reduced, EF of 45-50%. Given her acute kidney injury, renal sonogram was obtained and revealed no hydronephrosis or acute changes. A PICC line was placed given her poor IV access. She remained on IV antibiotics for suspected pneumonia. Over the hospital course, her breathing slowly improved. She was able to transition to her home oral Lasix. Her clinical care was discussed with her information officer, Dr. Rod Taylor, who confirmed her stage IV chronic kidney disease with a baseline SCr of 2.5. He recommended cautious IV fluids and discontinuation of her home HCTZ while resuming her home Lasix once her renal function was close to her baseline. She has denied any interest in dialysis. She was also found to have vitamin D deficiency and elevated PTH, likely from renal osteodystrophy. She was placed on vitamin D 1000 international units daily. By the end of the hospital course, the patient was on room air during the day and 2 L of oxygen with her home BiPAP at night. During the hospital course, she developed bradycardia and sinus arrest with a 3.1 second pause. Her atenolol was discontinued and Dr. Johnsno was consulted. He recommended that she remain off of atenolol. She continued on telemetry and was noted to have episodes of A. fib with aberrancy vs. questionable V. tach. She was started on Eliquis on 01/29/2018. Because of recurrent episodes of possible A. fib with aberrancy versus V. tach, amiodarone was initiated on 02/02. Norvasc was discontinued and nifedipine was initiated for blood pressure control. Due to her prolonged illness, she had marked generalized weakness. She was evaluated and accepted to IRU fo continued intensive rehabilitation. The hospitalist service was consulted for medical management. Dr. Johnson was consulted for continued cardiac care. Past Medical History Medical History Updates: Type II diabetes. Chronic kidney disease-stage IV ( baseline SCr 2.5). Obesity hypoventilation syndrome. Hypercholesterolemia. Hypertension. Hyperlipidemia. Chronic diastolic heart failure - EF 45-50%. Chronic back pain. Morbid obesity- BMI 58% Surgical History: Exploratory laparotomy, lysis of adhesions and decompression colonoscopy. 11-13-2010 [facility]. Sigmoid resection (many years prior to 2010) . Colonoscopy and decompression 11/26/2010 [facility]. Hysterectomy & bilateral salpingo-oophorectomy. Right bunionectomy. Right knee arthroscopy Family History Updates: Patient reports that both of her parents of "old age." One brother had a brain tumor. Another brother had heart disease and diabetes. Sister has had hypertension. Family History: As Above - Social History Smoking status: Never smoker Substance use type: does not use Alcohol intake frequency: does not drink Housing: house Household members: spouse Current occupational status: retired Current residence: Apartment/Private Home Social history: PCP - Amanda Kan APRN. Nephro - Dr. Rod Taylor. Cardio - Dr. Johnson. Review of Systems All systems PM: 10-point ROS was reviewed, no additional remarkable complaints except Review of systems: Sitting in dining room, having just finished lunch with her at her side. - Constitutional Constitutional: Present: weakness. Absent: chills, fatigue, fever(s), headache( s), malaise - EENMT Eyes: Absent: change in vision, diplopia, photophobia Ears: Absent: ear pain Balance: Absent: falling to one side Nose: Absent: nosebleeds Mouth/Throat: Absent: sore throat, changes in swallowing, dry mouth - Cardiovascular Cardiovascular: Present: dyspnea on exertion, orthopnea. Absent: chest pain, palpitations, syncope, edema Rhythm: Present: regular rhythm Vascular: Absent: pallor of an extermity, unilateral swelling - Respiratory Respiratory: Present: dyspnea, dyspnea on exertion. Absent: cough, hemoptysis, wheezing, pain on inspiration, chest congestion - Gastrointestinal Gastrointestinal: Present: constipation. Absent: abdominal pain, diarrhea, hematochezia, melena, nausea, vomiting - Genitourinary Genitourinary: Absent: dysuria, flank pain, hematuria Menstruation: post hysterectomy - Musculoskeletal Musculoskeletal: Present: back pain (chronic), muscle weakness. Absent: deformity - Integumentary/Breasts Integumentary: Absent: rash - Neurological Neurological: Present: weakness. Absent: abnormal speech, confusion, focal weakness - Psychiatric Psychiatric: Present: anxiety. Absent: depression - Endocrine Endocrine: Absent: flushing, palpitations - Hematologic/Lymphatic Hematologic/Lymphatic: Present: easy bruising (Eliquis) - Allergic/Immunologic Allergic/Immunologic: Absent: seasonal rhinorrhea Medications Home Medications Medication Instructions Recorded Confirmed Type Acetaminophen/Diphenhydramine 2 tab PO HS 01/14/18 02/03/18 History [Acetaminophen Pm Caplet] Aspirin [Aspirin EC] 162 mg PO BID 01/14/18 02/03/18 History Furosemide [Lasix 40 mg Tab] 40 mg PO DAILY 01/14/18 02/03/18 History Linaclotide [Linzess] 145 mcg PO DAILY 01/14/18 02/03/18 History Peg 3350 238 G Bottle [Miralax] 17 gm PO DAILY 01/14/18 02/03/18 History Tramadol [Ultram] 50 mg PO BID PRN 01/14/18 02/03/18 History Allergies Allergy/AdvReac Type Severity Reaction Status Date / Time doxazosin Allergy Mild Verified 01/14/18 15:48 lisinopril AdvReac Intermediate VOMITTING Verified 01/14/18 15:48 gabapentin AdvReac Unknown Verified 01/14/18 15:48 Exam Vital Signs: Temperature 98.1 F 02/04/18 08:00 Pulse Rate 76 02/04/18 08:00 Respiratory Rate 24 02/04/18 08:00 Blood Pressure 137/82 02/04/18 08:00 Pulse Oximetry 90 02/04/18 08:00 Height/Weight/BMI: Height 5 ft 7 in Weight 372 lb 5.772 oz Comments: Sitting in dining room having finished her lunch. - Constitutional Present: no acute distress, well nourished, well developed, cooperative Comments: Breathing easily on room air, though complains of feeling slightly short of breath and anxious. - Routine HEENT Exam Head: Present: normocephalic, atraumatic Eye: Present: PERRL. Absent: conjunctival icterus ENT: Present: mucous membranes moist, oropharynx clear - Routine Neck Exam Present: supple, full ROM, trachea midline - Routine Chest/Breast/Axilla Exam Chest wall: Absent: pacemaker - Routine Respiratory Exam Present: CTA bilaterally. Absent: respiratory distress, rhonchi, wheezes - Routine Cardiovascular Exam Present: RRR, S1, S2 - Routine Abdominal Exam Present: soft, normoactive bowel sounds, non tender Comments: Obese. - Routine Extremities Exam Present: non tender, pulses intact - Routine Back/Spine/Pelvis Exam Back/Spine: Absent: vertebral tenderness Comments: Limited ROM of spine due to body habitus and sitting in dining area in wheelchair. No pain with ROM. - Routine Skin Exam Present: intact, dry, warm Comments: Afebrile. - Routine Neurological Exam Present: alert, oriented X3, CN II-XII intact, moving all extremities, hearing grossly intact, normal speech - Routine Psychiatric Exam Present: cooperative Results - Labs CBC & Chem 7: 02/04/18 05:14 02/04/18 05:14 - Echocardiogram History of Echocardiogram: Date of Exam: 01/15/18. Type of Exam(s): US echo doppler complete. DATE OF STUDY. 01/15/2018. INDICATIONS. Pulmonary edema. TECHNICAL QUALITY. Technically very difficult 2D, M-mode, Doppler echocardiographic images, due to quite challenging acoustic windows, were submitted for interpretation. FINDINGS. 1. CARDIAC CHAMBERS: Left atrial diameter of 3.7 cm is normal. Left ventricle is dilated, measuring 6.1 cm. Right heart cardiac chambers don't appear enlarged. 2. LEFT VENTRICLE: Borderline concentric LVH is present. Wall motion analysis is abnormal. Posterior wall appears echogenic and thinned out as judged on limited views. LV function is judged based on very limited views, namely the parasternal long axis view and limited short axis view. There is probably mild LV systolic dysfunction. EF in the range of 45%-50%. This cannot be confirmed, however, due to difficult images. E/A is normal at 1.1. No tissue Doppler was performed for full diastolic function assessment. 3. VALVES: Aortic and mitral valve exhibit sclerotic changes. Visualization of the leaflets is quite poor due to very difficult acoustic windows. Doppler study shows questionable trace mitral regurgitation. No significant aortic stenosis with a mean gradient of only 9 mmHg, peak velocity of 2.1 m/sec and a valve area of 2.4. Trace tricuspid regurgitation with estimated systolic PA pressure of 26-31 mmHg. 4. Central venous pressure cannot be adequately assessed due to the patient being on BiPAP and exhibits a dilated IVC which is a nonspecific finding in the presence of positive intrathoracic pressure. 5. No evidence of pericardial effusion, intracardiac masses, thrombi, vegetations or demonstrable shunts on this very limited study. IMPRESSION. 1. Left ventricular enlargement. 2. Mild concentric LVH. 3. LV systolic function appears mildly reduced based on very limited views. 4. No significant valvular dysfunction. 5. Clinically very difficult study due to poor acoustic windows caused by patient's body habitus, being on BiPAP and in ICU. - Impressions Date of Exam: 01/15/18 Type of Exam(s): US renal BI Reason for Exam(s): acute kidney injury FINDINGS: Technically limited exam due to patient body habitus. Both kidneys are present with cortical thinning, but no gross hydronephrosis, obvious stone disease or renal mass. The right kidney measures 10.9 cm in length, and the left kidney measures 11.8 cm in length. IMPRESSION: No hydronephrosis seen. Date of Exam: 01/16/18 Type of Exam(s): US venous doppler LE Reason for Exam(s): Leg pain and swelling Findings: There is no evidence for acute deep venous thrombosis in either thigh. Specifically, serial graded compression was performed from the inguinal ligament to the popliteal bifurcation, bilaterally, demonstrating appropriate compressibility of the deep venous system. In addition, color and pulsed Doppler demonstrate appropriate spontaneous flow, variation with respiration, and augmentation with calf compression. At the ankle, normal flow is identified in the posterior tibial veins; these vessels are also normal in caliber. Impression: No evidence of acute DVT in either lower limb. Assessment and Plan Assessment and Plan: Assessment: Generalized debility secondary to acute prolonged illness. Acute hypoxemic and hypercapnic respiratory failure with pulmonary edema. Her pulmonary edema is improved at this time but she continues to demonstrate evidence of dyspnea with activity and requires occasional oxygen supplementation. Diastolic heart failure, acute on chronic with pulmonary edema - EF 45-50%. Acute on chronic kidney injury. Morbid obesity - BMI 58%. Diabetes mellitus type 2, not on long-term insulin Obstructive sleep apnea with obesity/hypoventilation syndrome on home BiPAP Chronic back pain with osteoarthritis Slow transit constipation Cardiac dysrhythmias characterized by paroxysmal atrial fibrillation and nonsustained ventricular tachycardia. Patient has now been started on amiodarone as of yesterday. Chronic kidney disease-stage IV (baseline SCr 2.5) Hypercholesterolemia Hypertension Plan - 02/04/18: Agree with admission to IRU for continued therapies per Dr. Rice to improve strength and functional abilities. Hospitalist service consulted for continuation of medical cares. Dr. Johnson consulted for continuation of cardiac cares with recent initiation of amiodarone. Labs today revealed stable anemia (Hgb 10.3). Slight elevation in renal function (SCr 2.9, BUN 52). Baseline SCr 2.5. Will encourage oral intake and continue to monitor closely. Currently on home dose Lasix 40mg po daily. Monitor daily weight and I&O closely for signs of fluid overload or dehydration. Weight on admission 176.6kg - decreased to 169.8 kg prior to discharge to IRU. Currently breathing easily on room air, though does become dyspnea with exertion. Oxygen as needed to maintain SAO2 >90%, weaning as able. Patient does not routinely use daytime oxygen. Continue BiPAP at 2L at night and while sleeping. Continue to monitor closely on telemetry. SCDs and Eliquis for DVT prophylaxis. Encourage incentive spirometry and acapella for pulmonary toileting. Will recheck CXR given persistent dyspnea with exertion. Patient remains afebrile. Recheck labs in AM to monitor blood counts, electrolytes and renal function. Upon discharge, patient's care will be returned to her PCP. Patient requests to be a DNR. DVT Prophylaxis: SCD's, Eliquis Resuscitation Status: Do Not Resuscitate - Time spent with patient Time with patient PN: 70 minutes - Physician Narrative Physician: Susan Clarke MD Narrative: Date: 02/04/18 Time: 1650 I have independently evaluated and examined this patient. I reviewed the chart, the patient's history, and the FUNDS TRANSFER CLERK/PA's documented findings as above. We discussed and formulated the assessment and plan as above with additions as below: Mrs. Arshad reports that she fatigues easily and has lost endurance during her complicated hospital admission for pulmonary edema and acute kidney injury. She denies any acute pulmonary symptoms at this time but is concerned that urine volume is poor currently and that she's had increased abdominal cramping/gas pain with addition of MiraLAX daily. NAD, morbidly obese; respirations nonlabored, good airflow, breath sounds clear (positioning precludes auscultation of bases posteriorly). Regular rhythm; abdomen soft/nontender. Medication changes made by cardiology on transfer to IRU noted; telemetry strips /EKG sinus rhythm today by my review. Creatinine 2.9 today-up somewhat from recent baseline of 2.4-2.5. BUN relatively stable however. Monitor closely. Avoid hypotension-may require higher perfusion pressure for renal function. Chest x-ray reviewed by myself demonstrating NAD. No residual pulmonary edema. Patient reports she does not wish to be intubated but is not opposed to CPR/ defibrillation as per current DO NOT INTUBATE order. Hospital Course Summary Disclaimer: The visit summary below is not to be considered part of the above Progress Note.
--- NOTE | 2018-02-04 14:08 | XRay Report ---
INDICATION: dyspnea PROCEDURE: CHEST 2-VIEWS UPRIGHT (PA & LAT) Encounter: Initial COMPARISON: January 26, 2018 FINDINGS: Prior congestive changes have improved. No new or worsening airspace consolidation. No pleural effusion or pneumothorax. Heart size and mediastinal contours are stable. Impression: Improved CHF. No focal pneumonia. .
[2018-02-04] MEDS ORDERED: PNEUMOCOCCAL 13 VACCINE 0.5ml INJECTION IM ONE (18:36)
[2018-02-04] MEDS: APAP/DIPHENHYDRAMINE 500 MG/25 MG TABLET PO SCH (20:43)
[2018-02-04] MEDS: ATENOLOL 25 MG TABLET PO SCH (20:44)
[2018-02-04] MEDS: ONDANSETRON 4 MG/2 ML INJECTION IVP PRN (22:12)
[2018-02-05] MEDS: ACETAMINOPHEN 500 MG TABLET PO SCH ×3 (05:39→13:51)
[2018-02-05] MEDS: LINACLOTIDE 145 MCG CAPSULE PO SCH (07:42)
[2018-02-05] MEDS: AMIODARONE 200 MG TABLET PO SCH ×2 (08:19→21:31)
[2018-02-05] MEDS: ASPIRIN *EC* 81 MG TABLET PO SCH ×2 (08:19→21:32)
[2018-02-05] MEDS: APIXABAN 2.5 MG TABLET PO SCH ×2 (08:19→21:32)
[2018-02-05] MEDS: FUROSEMIDE 40 MG TABLET PO SCH (08:20)
[2018-02-05] MEDS: HYDROCODONE/APAP 5mg/325mg TABLET PO PRN (10:38)
--- NOTE | 2018-02-05 12:00 | Progress Note ---
- Date 02/05/18 Subjective: Sully was sitting on the side of her bed, working with therapy. She complained of feeling more short of breath - her sat was 93% on room air. She feels like therapy is going well, though is sore and achy from the exercise. She denies abdominal pain, nausea, or constipation. Appetite has been stable. Objective Vital signs: Temperature 97.8 F 02/05/18 07:38 Pulse Rate 74 02/05/18 07:38 Respiratory Rate 20 02/05/18 07:38 Blood Pressure 143/69 H 02/05/18 07:38 Pulse Oximetry 93 02/05/18 07:38 Height/Weight/BMI: Height 1.7 m Weight 167 kg - Constitutional Present: no acute distress, well nourished, well developed, morbidly obese - Routine HEENT Exam Head: Present: normocephalic Eye: Present: PERRL. Absent: conjunctival icterus, scleral injection - Routine Respiratory Exam Present: decreased breath sounds - Routine Cardiovascular Exam Present: RRR, S1, S2 - Routine Abdominal Exam Present: soft, normoactive bowel sounds, non distended, non tender - Routine Extremities Exam Present: edema (trace-1+ BLE) - Routine Skin Exam Present: intact, dry, warm - Routine Neurological Exam Present: alert, oriented X3, vision grossly intact, hearing grossly intact, normal speech - Routine Psychiatric Exam Present: normal affect, normal thought process, cooperative Results - Labs CBC & Chem 7: 02/05/18 05:38 02/05/18 05:38 Assessment and Plan Assessment and Plan: Assessment: Generalized debility secondary to acute prolonged illness. Acute hypoxemic and hypercapnic respiratory failure with pulmonary edema. Her pulmonary edema is improved at this time but she continues to demonstrate evidence of dyspnea with activity and requires occasional oxygen supplementation. Diastolic heart failure, acute on chronic with pulmonary edema - EF 45-50%. Acute on chronic kidney injury. Morbid obesity - BMI 58. Diabetes mellitus type 2, not on long-term insulin Obstructive sleep apnea with obesity/hypoventilation syndrome on home BiPAP Chronic back pain with osteoarthritis Slow transit constipation Cardiac dysrhythmias characterized by paroxysmal atrial fibrillation and nonsustained ventricular tachycardia. Patient has now been started on amiodarone as of yesterday. Chronic kidney disease-stage IV (baseline SCr 2.5) Hypercholesterolemia Hypertension Plan - 02/05/18: BUN up to 60 and creatinine increased to 3.6. Lasix put on hold though she already received it this am. The hospitalist staff determined her dry weight to be around 169 kg; this am she was 167. Will give NS 500 mL bolus. Recheck BMP in am. Breathing stable on room air today - yesterday dropped briefly into the 80s. Tele - sinus. Continue amiodarone/Eliquis/BB per cardiology. D/W Dr. Clarke. DVT Prophylaxis: Eliquis Resuscitation Status: Do Not Intubate - Physician Narrative Narrative: Date: 02/05/18 Time: 1157 Hospital Course Summary Disclaimer: The visit summary below is not to be considered part of the above Progress Note. Hospital Course: 02/05/18 BUN up to 60 and creatinine increased to 3.6. Lasix put on hold though she already received it this am. The hospitalist staff determined her dry weight to be around 169 kg; this am she was 167. Will give NS 500 mL bolus. Recheck BMP in am. Breathing stable on room air today - yesterday dropped briefly into the 80s. Tele - sinus. Continue amiodarone/Eliquis/BB per cardiology.
--- NOTE | 2018-02-05 12:49 | Cardiology Progress Note ---
<Montse Valenzuela M - Last Filed: 02/06/18 11:23> Subjective Principal diagnosis: NSVT, A Fib Interval history: Sully is seen in follow up for NSVT and A Fib. Exam Vital signs: Temperature 97.8 F 02/05/18 07:38 Pulse Rate 74 02/05/18 07:38 Respiratory Rate 20 02/05/18 07:38 Blood Pressure 143/69 H 02/05/18 07:38 Pulse Oximetry 93 02/05/18 07:38 Inpatient Medications: Generic Name Dose Route Start Last Admin Trade Name Freq PRN Reason Stop Dose Admin Acetaminophen 1,000 mg 02/04/18 07:00 02/05/18 06:37 Tylenol PO Not Given [id number] MYNOR Acetaminophen/Diphenhydramine HCl 2 tab 02/03/18 21:00 02/04/18 20:43 Tylenol Pm PO 2 tab HS MYNOR Administration Hydrocodone Bitart/Acetaminophen 1 tab 02/03/18 14:41 02/05/18 10:38 [place] 5/325 PO 1 tab Q4H PRN Administration Pain Amiodarone HCl 400 mg 02/03/18 21:00 02/05/18 08:19 Pacerone PO 02/08/18 21:00 400 mg BID MYNOR Administration Amiodarone HCl 200 mg 02/09/18 09:00 Pacerone PO DAILY MYNOR Apixaban 2.5 mg 02/03/18 21:00 02/05/18 08:19 Eliquis PO 2.5 mg BID MYNOR Administration Aspirin 162 mg 02/03/18 21:00 02/05/18 08:19 Ecotrin PO 162 mg BID MYNOR Administration Atenolol 25 mg 02/04/18 21:00 02/04/18 20:44 Tenormin PO Not Given BID MYNOR Cholecalciferol 1,000 unit 02/04/18 09:00 02/05/18 08:20 Vit. D-3 PO 1,000 unit DAILY MYNOR Administration Furosemide 40 mg 02/04/18 09:00 02/05/18 08:20 Lasix 40 Mg Tab PO 40 mg DAILY MYNOR Administration Sodium Chloride 500 mls @ 150 mls/hr 02/05/18 12:08 02/05/18 12:42 Normal Saline IV 02/05/18 15:27 150 mls/hr .Q3H20M ONE Administration Linaclotide 145 mcg 02/04/18 07:30 02/05/18 07:42 Linzess PO 145 mcg 0730 MYNOR Administration Magnesium Hydroxide 30 ml 02/04/18 12:23 Mom PO DAILY PRN Constipation Nifedipine 60 mg 02/04/18 09:00 02/05/18 08:20 Procardia Xl PO 60 mg DAILY MYNOR Administration Ondansetron HCl 4 mg 02/03/18 14:41 02/04/18 22:12 Zofran IVP 4 mg Q4H PRN Administration Nausea &/or vomiting Polyethylene Glycol 17 gm 02/03/18 15:15 Miralax PO DAILY PRN Constipation Senna/Docusate Sodium 1 tab 02/03/18 14:41 Senna Plus Tablet PO BID PRN Constipation Sodium Chloride 10 - 80 ml 02/03/18 14:41 02/04/18 08:37 Iv Flush IVF 10 ml PRN PRN Administration Flushing Trolamine Salicylate 1 applic 02/03/18 14:41 Aspercreme TOP PRN PRN Discontinued Medications Generic Name Dose Route Start Last Admin Trade Name Freq PRN Reason Stop Dose Admin Atenolol 50 mg 02/03/18 21:00 02/03/18 20:45 Tenormin PO 50 mg BID MYNOR Administration Pharmacy Consult 1 each 02/03/18 14:41 Pharmacy Consult - Fall Risk 02/03/18 14:42 ONE TIME ONE Pneumococcal 7-Valent Conj Vacc 0.5 ml 02/04/18 18:36 02/04/18 20:41 Prevnar 13 IM 02/04/18 18:37 0.5 ml .ONCE ONE Administration Polyethylene Glycol 17 gm 02/04/18 09:00 Miralax PO DAILY MYNOR - Constitutional no acute distress, morbidly obese, cooperative - Routine HEENT Exam Head: Present: normocephalic ENT: Present: mucous membranes moist - Routine Neck Exam Absent: JVD, carotid bruit - Routine Chest/Breast/Axilla Exam Chest wall: Absent: tenderness - Routine Respiratory Exam Present: CTA bilaterally. Absent: rales, wheezes - Routine Cardiovascular Exam Present: RRR, no murmur - Routine Abdominal Exam Present: soft, non tender - Routine Extremities Exam Present: no edema - Routine Skin Exam Present: intact, dry, warm - Routine Neurological Exam Present: alert, oriented X3 - Routine Psychiatric Exam Present: normal affect, normal thought process Results 02/06/18 04:40 02/06/18 04:40 CBC 02/05/18 Range/Units 05:38 WBC 11.6 H (4.5-11.0) T/MM3 RBC 3.83 L (4.00-5.20) M/MM3 Hgb 11.2 L (12-16) GM/DL Hct 36.5 (36-46) % Plt Count 261 (130-400) T/MM3 Neut # (Auto) 6.3 (1.8-7.7) T/MM3 Lymph # (Auto) 3.9 (1-4.8) T/MM3 [place] # (Auto) 0.8 (0-0.8) T/MM3 Eos # (Auto) 0.5 (0-0.5) T/MM3 Baso # (Auto) 0.0 (0-0.2) T/MM3 Comprehensive Metabolic Panel 02/05/18 Range/Units 05:38 Sodium 139 (134-144) MEQ/L Potassium 4.5 (3.6-5) MEQ/L Chloride 104 (98-107) MEQ/L Carbon Dioxide 22 (22-30) MEQ/L BUN 60.0 H* (7-17) MG/DL Creatinine 3.6 H D (0.7-1.2) mg/dL Glucose 111 H (65-110) MG/DL Calcium 9.1 (8.4-10.2) MG/DL Intake and Output 02/04/18 02/05/18 02/05/18 22:59 06:59 14:59 Intake Total 120 / 120 240 / 240 Output Total 100 / 100 Balance 120 / 120 140 / 140 Intake: Oral 120 / 120 240 / 240 Output: Urine 100 / 100 Other: Urine Color Yellow Urine Odor Normal Stool Color Brown Brown Stool Consistency Liquid Liquid Size of Bowel Movement Large Moderate # Voids 1 1 1 # Bowel Movements 1 Weight 368 lb 2.751 oz Patient Weight 02/06/18 06:59 Weight 368 lb 2.751 oz Assessment and Plan - Assessment and Plan (1) PAF (paroxysmal atrial fibrillation) Current visit: No Status: Acute (2) Sinus arrest Current visit: No Status: Resolved (3) Essential (primary) hypertension Current visit: No Status: Chronic (4) Mixed hyperlipidemia Current visit: No Status: Chronic (5) Chronic kidney disease Current visit: No Status: Chronic (6) Morbid obesity with BMI of 50.0-59.9, adult Current visit: No Status: Chronic (7) NSVT (nonsustained ventricular tachycardia) Current visit: No Status: Acute - Assessment and Plan 02/04/18 Sinus Arrest Pauses resolved - Received Atenolol 50mg last evening, no pauses noted on telemetry - Will resume low dose BB this evening and watch telemetry for pauses NSVT: Continue Amiodarone 400mg BID for 1 week then 200mg daily - Not a candidate for LHC due to CKD and elevated BUN/SCr - EKG now - monitor cardiac telemetry PAF: Continue Eliquis 2.5mg BID for stroke prevention - Continue to monitor cardiac telemetry - HGB/ platelets stable HTN: Continue Nifedipine 60mg daily CKD:BUN 52/ Scr 2.9 - Seen by - Does not want hemodialysis. Diastolic CHF Mixed hyperlipidemia Morbid obesity with BMI of 50.0-59.9, adult 02/05/18 Hold Atenolol for now as patient is not comfortable taking it. - Continue to monitor telemetry for VTach/ AFib Hospital Course Summary Disclaimer: The visit summary below is not to be considered part of the above Progress Note. Hospital Course: 02/05/18 BUN up to 60 and creatinine increased to 3.6. Lasix put on hold though she already received it this am. The hospitalist staff determined her dry weight to be around 169 kg; this am she was 167. Will give NS 500 mL bolus. Recheck BMP in am. Breathing stable on room air today - yesterday dropped briefly into the 80s. Tele - sinus. Continue amiodarone/Eliquis/BB per cardiology. <Spencer Johnson - Last Filed: 02/06/18 14:47> Subjective Interval history: She is examined in the dining room. She denies chest pain, pressure, palpitations, dyspnea. Exam Vital signs: Temperature 97.7 F 02/06/18 12:54 Pulse Rate 69 02/06/18 12:54 Respiratory Rate 18 02/06/18 12:54 Blood Pressure 145/68 H 02/06/18 12:54 Pulse Oximetry 92 02/06/18 12:54 Inpatient Medications: Generic Name Dose Route Start Last Admin Trade Name Freq PRN Reason Stop Dose Admin Acetaminophen 1,000 mg 02/04/18 07:00 02/06/18 14:21 Tylenol PO 1,000 mg [id number] MYNOR Administration Acetaminophen/Diphenhydramine HCl 2 tab 02/03/18 21:00 02/05/18 21:31 Tylenol Pm PO 2 tab HS MYNOR Administration Hydrocodone Bitart/Acetaminophen 1 tab 02/03/18 14:41 02/06/18 12:22 [place] 5/325 PO 1 tab Q4H PRN Administration Pain Amiodarone HCl 400 mg 02/03/18 21:00 02/06/18 10:25 Pacerone PO 02/08/18 21:00 400 mg BID MYNOR Administration Amiodarone HCl 200 mg 02/09/18 09:00 Pacerone PO DAILY MYNOR Apixaban 2.5 mg 02/03/18 21:00 02/06/18 10:25 Eliquis PO 2.5 mg BID MYNOR Administration Aspirin 162 mg 02/03/18 21:00 02/06/18 10:26 Ecotrin PO 162 mg BID MYNOR Administration Atenolol 25 mg 02/04/18 21:00 02/06/18 10:26 Tenormin PO 25 mg BID MYNOR Administration Cholecalciferol 1,000 unit 02/04/18 09:00 02/06/18 10:26 Vit. D-3 PO 1,000 unit DAILY MYNOR Administration Furosemide 40 mg 02/04/18 09:00 02/05/18 08:20 Lasix 40 Mg Tab PO 40 mg DAILY MYNOR Administration Linaclotide 145 mcg 02/04/18 07:30 02/06/18 06:38 Linzess PO 145 mcg 0730 MYNOR Administration Magnesium Hydroxide 30 ml 02/04/18 12:23 Mom PO DAILY PRN Constipation Nifedipine 30 mg 02/07/18 09:00 02/06/18 11:40 Procardia Xl PO 30 mg DAILY MYNOR Administration Ondansetron HCl 4 mg 02/03/18 14:41 02/06/18 09:52 Zofran IVP 4 mg Q4H PRN Administration Nausea &/or vomiting Pantoprazole Sodium 40 mg 02/07/18 08:56 02/06/18 09:35 Protonix Tab PO 40 mg ACB MYNOR Administration Polyethylene Glycol 17 gm 02/03/18 15:15 Miralax PO DAILY PRN Constipation Prochlorperazine 10 mg 02/06/18 09:00 02/06/18 14:22 Compazine PO 10 mg TID MYNOR Administration Senna/Docusate Sodium 1 tab 02/03/18 14:41 Senna Plus Tablet PO BID PRN Constipation Sodium Chloride 10 - 80 ml 02/03/18 14:41 02/06/18 05:05 Iv Flush IVF 10 ml PRN PRN Administration Flushing Trolamine Salicylate 1 applic 02/03/18 14:41 Aspercreme TOP PRN PRN Discontinued Medications Generic Name Dose Route Start Last Admin Trade Name Freq PRN Reason Stop Dose Admin Atenolol 50 mg 02/03/18 21:00 02/03/18 20:45 Tenormin PO 50 mg BID MYNOR Administration Diphenhydramine HCl 25 mg 02/06/18 12:56 02/06/18 13:13 Benadryl IVP 02/06/18 12:57 25 mg O ONE Administration Sodium Chloride 500 mls @ 150 mls/hr 02/05/18 12:08 02/05/18 16:45 Normal Saline IV 02/05/18 15:27 Infused .Q3H20M ONE Infusion Sodium Chloride 500 mls @ 250 mls/hr 02/06/18 10:00 02/06/18 13:15 Normal Saline IV 02/06/18 11:59 Infused .Q2H MYNOR Infusion Nifedipine 60 mg 02/04/18 09:00 02/05/18 08:20 Procardia Xl PO 60 mg DAILY MYNOR Administration Pharmacy Consult 1 each 02/03/18 14:41 Pharmacy Consult - Fall Risk 02/03/18 14:42 ONE TIME ONE Pneumococcal 7-Valent Conj Vacc 0.5 ml 02/04/18 18:36 02/04/18 20:41 Prevnar 13 IM 02/04/18 18:37 0.5 ml .ONCE ONE Administration Polyethylene Glycol 17 gm 02/04/18 09:00 Miralax PO DAILY MYNOR Promethazine HCl 25 mg 02/06/18 11:29 02/06/18 11:38 Phenergan Inj IM 25 mg Q6H PRN Administration Results 02/06/18 04:40 02/06/18 04:40 CBC 02/06/18 Range/Units 04:40 WBC 8.8 (4.5-11.0) T/MM3 RBC 3.47 L (4.00-5.20) M/MM3 Hgb 10.2 L (12-16) GM/DL Hct 32.9 L (36-46) % Plt Count 205 (130-400) T/MM3 Neut # (Auto) 5.3 (1.8-7.7) T/MM3 Lymph # (Auto) 2.4 (1-4.8) T/MM3 [place] # (Auto) 0.7 (0-0.8) T/MM3 Eos # (Auto) 0.4 (0-0.5) T/MM3 Baso # (Auto) 0.0 (0-0.2) T/MM3 Comprehensive Metabolic Panel 02/06/18 Range/Units 04:40 Sodium 139 (134-144) MEQ/L Potassium 4.2 (3.6-5) MEQ/L Chloride 104 (98-107) MEQ/L Carbon Dioxide 21 L (22-30) MEQ/L BUN 64.0 H* (7-17) MG/DL Creatinine 3.8 H (0.7-1.2) mg/dL Glucose 103 (65-110) MG/DL Calcium 8.1 L D (8.4-10.2) MG/DL Intake and Output 02/05/18 02/06/18 02/06/18 22:59 06:59 14:59 Intake Total 500 / 500 500 / 500 Balance 500 / 500 500 / 500 Intake: IV 500 / 500 500 / 500 NS 500ml 500 ml @ 150 mls/hr IV 500 / 500 .Q3H20M ONE Rx#:[id number] Ns 500 ml @ 250 mls/hr IV .Q2H 500 / 500 MYNOR Rx#:[id number] Other: Urine Appearance Clear Clear Urine Color Dark Yellow Yellow Yellow Urine Odor Normal Normal Stool Color Brown Brown Stool Consistency Loose Watery Size of Bowel Movement Small Small # Voids 1 1 1 # Bowel Movements 1 1 Assessment and Plan - Assessment and Plan (1) Sinus arrest Current visit: No Status: Resolved (2) Chronic kidney disease Current visit: No Status: Chronic (3) Essential (primary) hypertension Current visit: No Status: Chronic (4) Mixed hyperlipidemia Current visit: No Status: Chronic (5) Morbid obesity with BMI of 50.0-59.9, adult Current visit: No Status: Chronic (6) PAF (paroxysmal atrial fibrillation) Current visit: No Status: Acute (7) NSVT (nonsustained ventricular tachycardia) Current visit: No Status: Acute - Attestation Attestation Narrative: 02/06/18 14:47 Recommendation After examining the patient I agree with the above assessment. I am involved in the formulation of the patient's plan of care. Hospital Course Summary Disclaimer: The visit summary below is not to be considered part of the above Progress Note.
[2018-02-05] MEDS: SALINE FLUSH 10ml SYRINGE IVF PRN ×2 (13:51→17:25)
--- NOTE | 2018-02-05 14:57 | IRU Progress Note ---
- Subjective/Serverity of Illness Date: 02/05/18 Patient resting in bed with BiPAP in place. She has been tolerating physical therapy, states she is tired but doing well. She is eating in the dining room for all 3 meals daily. Pain is managed and she feels like she is increasing in strength and stamina. Exam Vital Signs: Temperature 97.8 F 02/05/18 07:38 Pulse Rate 74 02/05/18 07:38 Respiratory Rate 20 02/05/18 07:38 Blood Pressure 143/69 H 02/05/18 07:38 Pulse Oximetry 93 02/05/18 07:38 Height/Weight/BMI: Height 1.7 m Weight 167 kg - Constitutional Present: no acute distress - Routine Respiratory Exam Present: CTA bilaterally. Absent: dyspnea, respiratory distress - Routine Cardiovascular Exam Present: RRR, no murmur - Routine Extremities Exam Present: clubbing, edema (1-2+ pitting edema bilateral lower extremities.). Absent: cyanosis Results IRU - Labs Labs: Labs reviewed. BUN and creatinine noticed to have increased, hospital list plan reviewed. IRU A/P DVT Prophylaxis: Eliquis Resuscitation Status: Do Not Intubate - Course Hospital Course: Tevin Rice MD: 02/05/18 14:57 Patient is cooperating with physical therapy. Is making an effort to increase her stamina. Pain is controlled and we will reevaluate tomorrow. Medical issues being managed including acute on chronic kidney injury. Continue with physical therapy and occupational therapy support. - Interventions to Obtain Goals PT Treatment Plan: Balance/Proprioception, Functional Activities, Gait Training , Patient/Family Education, Therapeutic Exercise OT Treatment Plan: ADL (Basic Care), Balance Training, Pt./Family Education, Ther. Exercise for ADL
[2018-02-05] MEDS: ATENOLOL 25 MG TABLET PO SCH ×2 (17:27→21:33)
[2018-02-05] MEDS: ONDANSETRON 4 MG/2 ML INJECTION IVP PRN (19:15)
[2018-02-05] MEDS: APAP/DIPHENHYDRAMINE 500 MG/25 MG TABLET PO SCH (21:31)
[2018-02-06] MEDS: ONDANSETRON 4 MG/2 ML INJECTION IVP PRN ×3 (05:05→09:52)
[2018-02-06] MEDS: SALINE FLUSH 10ml SYRINGE IVF PRN (05:05)
[2018-02-06] MEDS: ACETAMINOPHEN 500 MG TABLET PO SCH ×2 (06:37→14:21)
[2018-02-06] MEDS: LINACLOTIDE 145 MCG CAPSULE PO SCH (06:38)
[2018-02-06] MEDS: PANTOPRAZOLE 40 MG TABLET PO SCH (09:35)
[2018-02-06] MEDS: PROCHLORPERAZINE 10 MG TABLET PO SCH ×3 (09:35→21:37)
--- NOTE | 2018-02-06 09:44 | Progress Note ---
- Date 02/06/18 Subjective: Patient is seen resting in bed. She feels nauseated over the last several days. No appetite. She states this is worse than it has ever been. She states it will hit her all once, and there really is no trigger. The Zofran does seem to help but doesn't last very long. She's had no actual vomiting. She states she used to take omeprazole and has not been taking it. She denies any GERD symptoms. States her bowels have been "normal for me." She's been having loose stools daily. Objective Vital signs: Temperature 97.8 F 02/06/18 07:44 Pulse Rate 69 02/06/18 07:44 Respiratory Rate 18 02/06/18 07:44 Blood Pressure 129/59 02/06/18 07:44 Pulse Oximetry 94 02/06/18 07:44 Height/Weight/BMI: Height 1.7 m Weight 167 kg - Constitutional Present: no acute distress, well nourished, well developed - Routine HEENT Exam Head: Present: normocephalic, atraumatic - Routine Respiratory Exam Present: CTA bilaterally. Absent: wheezes - Routine Cardiovascular Exam Present: RRR, no murmur - Routine Abdominal Exam Present: soft, normoactive bowel sounds, tenderness, non distended - Routine Extremities Exam Present: no edema, normal capillary refill - Routine Skin Exam Present: dry, warm - Routine Neurological Exam Present: alert. Absent: altered mental status - Routine Lymphatic Exam Lymphatic: Absent: adenopathy - Routine Psychiatric Exam Present: normal affect, cooperative Results - Labs CBC & Chem 7: 02/06/18 04:40 02/06/18 16:47 Assessment and Plan Assessment and Plan: Assessment: Generalized debility secondary to acute prolonged illness. Nausea - onset 02/01/18 Acute hypoxemic and hypercapnic respiratory failure with pulmonary edema. Her pulmonary edema is improved at this time but she continues to demonstrate evidence of dyspnea with activity and requires occasional oxygen supplementation. Diastolic heart failure, acute on chronic with pulmonary edema - EF 45-50%. Acute on chronic kidney injury. Morbid obesity - BMI 58. Diabetes mellitus type 2, not on long-term insulin Obstructive sleep apnea with obesity/hypoventilation syndrome on home BiPAP Chronic back pain with osteoarthritis Slow transit constipation Cardiac dysrhythmias characterized by paroxysmal atrial fibrillation and nonsustained ventricular tachycardia. Patient has now been started on amiodarone as of yesterday. Chronic kidney disease-stage IV (baseline SCr 2.5) Hypercholesterolemia Hypertension Plan: BUN up to 64 and creatinine increased to 3.8. Lasix is on hold.(Last dose was yesterday.) Will give NS 500 mL over 2 hours. Discussed with cardiology. Will decrease nifedipine from 60 mg to 30 mg. Hopefully having BP's a little higher will help perfuse the kidneys. Recheck BMP in am. (Pt declines dialysis.) Start compazine routinely for nausea and start omeprazole. Check CBC. Continue to monitor closely. DVT Prophylaxis: Eliquis GI Prophylaxis: Protonix Resuscitation Status: Do Not Intubate - Physician Narrative Physician: Susan Clarke MD Narrative: Date: 02/06/18 Time: 1999 I have independently evaluated and examined this patient. I reviewed the chart, the patient's history, and the [employer]/PA's documented findings as above. We discussed and formulated the assessment and plan as above with additions as below: Mrs. Arshad was seen this afternoon shortly after CT abdomen was obtained. She describes persistent nausea without emesis and reports she's having loose stools but that is baseline for her. She's been unable to take any oral intake today other than minor sips of water. Examination revealed nonlabored respirations, abdomen is soft with hyperactive bowel sounds but mild generalized tenderness without guarding. CT abdomen and pelvis reviewed by myself-increased gaseous distention which appears to be primarily colonic to me, moderate gallstone distention without cholecystic inflammation or stones, atrophic kidneys. Radiology read as consistent with mild ileus. Continue IV fluids due to impaired oral intake and decreased weight/increased BUN-creatinine. Fluid balance very tenuous. Nifedipine dose decreased after discussion with cardiology by Marii SAUCEDO earlier today. Hospital Course Summary Disclaimer: The visit summary below is not to be considered part of the above Progress Note. Hospital Course: 02/05/18 BUN up to 60 and creatinine increased to 3.6. Lasix put on hold though she already received it this am. The hospitalist staff determined her dry weight to be around 169 kg; this am she was 167. Will give NS 500 mL bolus. Recheck BMP in am. Breathing stable on room air today - yesterday dropped briefly into the 80s. Tele - sinus. Continue amiodarone/Eliquis/BB per cardiology. Addendum entered and electronically signed by SHERYL Berry 02/06/18 13: 02: Nursing contacted the hospitalist service around 1130 reporting that the patient was complaining of nausea despite receiving Compazine and Zofran. No vomiting. She was given Phenergan 25mg IV with improvement in her nausea. Around 1245 nursing contacted the hospitalist service again reporting that the patient was having restless legs and complained of right lower abdominal pain while doing her acapella earlier today. The patient was then seen and found to be very anxious and near tears, reporting that she was "so tired". She had her CPAP in place with nursing at the bedside. She reported that her nausea was improved but was distressed by her restless legs which are most likely an extrapyramidal effect from the Phenergan. She denies any current abdominal pain. Exam revealed multiple bruises in various stages of healing secondary to her recent Lovenox injections provided for DVT prophylaxis during her acute hospitalization. She remains on Eliquis. She was noted to have a larger bruise in her RLQ which correlated with her prior pain. Cardiac exam revealed regular rate and rhythm and lung sounds were clear on auscultation. Abdomen was soft, slightly distended, morbidly obese with mild, generalized tenderness with palpation, specifically over bruise in RLQ. No guarding or rebound tenderness noted. Labs this morning revealed normal WBC with slight in hemoglobin (Hgb 10.2). Review of prior labs revealed that hemoglobin is stable. Electrolytes were unremarkable with the exception of mild hypocalcemia (Ca 8.1) . Renal function elevated with BUN 64 and SCr 3.8. She was started on NS 250cc /hr x 500cc for hydration. Given her elevated renal function her Lasix was placed on hold. She also reportedly had a loose stool this morning. Bowel softeners were placed on hold. Will give Benadryl 25mg IV x 1 dose now for extrapyramidal effects and discontinue Phenergan. Given anemia and increased pain to RLQ with bruising, will obtain CT abdomen/ pelvis without contrast for further evaluation - results pending. Continue hydration with 500cc IV fluids and recheck BMP at 1700 to monitor labs. Continue to monitor patient closely on telemetry.
[2018-02-06] MEDS ORDERED: NS 500 ML IV SCH (10:00)
[2018-02-06] MEDS: AMIODARONE 200 MG TABLET PO SCH ×2 (10:25→21:28)
[2018-02-06] MEDS: APIXABAN 2.5 MG TABLET PO SCH ×2 (10:25→21:32)
[2018-02-06] MEDS: ATENOLOL 25 MG TABLET PO SCH ×2 (10:26→21:32)
[2018-02-06] MEDS: ASPIRIN *EC* 81 MG TABLET PO SCH ×2 (10:26→21:32)
[2018-02-06] MEDS ORDERED: PROMETHAZINE 25 MG INJECTION IM PRN (11:29)
[2018-02-06] MEDS: HYDROCODONE/APAP 5mg/325mg TABLET PO PRN (12:22)
[2018-02-06] MEDS ORDERED: DiphenhydrAMINE 50 MG/ML INJECTION IVP ONE (12:56)
--- NOTE | 2018-02-06 13:33 | IRU Progress Note ---
- Subjective/Serverity of Illness Date: 02/06/18 Patient has been cooperative with physical therapy and is working towards increase strength. However she has significant nausea and then a reaction to Phenergan today. She was given Benadryl which has helped with the symptoms of dystonia in her legs. However has left her very tired today. She has not come out to the dining room for breakfast or lunch today. Exam Vital Signs: Temperature 97.7 F 02/06/18 12:54 Pulse Rate 69 02/06/18 12:54 Respiratory Rate 18 02/06/18 12:54 Blood Pressure 145/68 H 02/06/18 12:54 Pulse Oximetry 92 02/06/18 12:54 Height/Weight/BMI: Height 1.7 m Weight 167 kg - Constitutional Present: morbidly obese - Routine HEENT Exam Head: Present: normocephalic - Routine Respiratory Exam Present: CTA bilaterally, distant breath sounds - Routine Cardiovascular Exam Present: RRR, no murmur - Routine Abdominal Exam Present: soft, non tender - Routine Extremities Exam Comments: Patient is not lifting legs off the bed today due to the episode of dystonia. - Routine Neurological Exam Present: alert, oriented X3, normal reflexes IRU A/P DVT Prophylaxis: Eliquis Resuscitation Status: Do Not Intubate - Course Hospital Course: Tevin Rice MD: 02/05/18 14:57 Patient is cooperating with physical therapy. Is making an effort to increase her stamina. Pain is controlled and we will reevaluate tomorrow. Medical issues being managed including acute on chronic kidney injury. Continue with physical therapy and occupational therapy support. - Interventions to Obtain Goals PT Treatment Plan: Balance/Proprioception, Functional Activities, Gait Training , Patient/Family Education, Therapeutic Exercise OT Treatment Plan: ADL (Basic Care), Balance Training, Pt./Family Education, Ther. Exercise for ADL Goals Progress/Modifications: IRU A/P (1) Acute on chronic respiratory failure with hypoxemia Current visit: Yes Status: Acute Continue with oxygen and BiPAP. (2) Diastolic CHF, acute on chronic Current visit: Yes Status: Acute Stable. (3) Acute on chronic kidney failure Qualifiers: Acute renal failure type: unspecified Chronic kidney disease stage: stage 4 (severe) Qualified Code(s): N17.9 - Acute kidney failure, unspecified; N18.4 - Chronic kidney disease, stage 4 (severe) Current visit: Yes Status: Acute Managed by the hospitalist. (4) weakness of chronic disease) Current visit: No Status: Acute Patient has been cooperative with physical therapist and occupational therapist. Today I placed a therapy hold due to nausea which led to weakness and issues with the dystonia following Phenergan administration. She was given Benadryl which did help with dystonia. (5) PAF (paroxysmal atrial fibrillation) Current visit: No Status: Acute (6) Essential (primary) hypertension Current visit: No Status: Chronic (7) Morbid obesity with BMI of 50.0-59.9, adult Current visit: No Status: Chronic DVT Prophylaxis: SCD's Resuscitation Status: Do Not Intubate
--- NOTE | 2018-02-06 14:33 | Cardiology Progress Note ---
<Montse Valenzuela M - Last Filed: 02/06/18 14:29> Subjective Principal diagnosis: NSVT, A Fib Interval history: Sully is seen in follow up for NSVT and A Fib. She is in her bed on her c-pap. C /O nausea today. She denies chest pain, palpitations or dyspnea. Exam Vital signs: Temperature 97.7 F 02/06/18 12:54 Pulse Rate 69 02/06/18 12:54 Respiratory Rate 18 02/06/18 12:54 Blood Pressure 145/68 H 02/06/18 12:54 Pulse Oximetry 92 02/06/18 12:54 Inpatient Medications: Generic Name Dose Route Start Last Admin Trade Name Freq PRN Reason Stop Dose Admin Acetaminophen 1,000 mg 02/04/18 07:00 02/06/18 14:21 Tylenol PO 1,000 mg [id number] MYNOR Administration Acetaminophen/Diphenhydramine HCl 2 tab 02/03/18 21:00 02/05/18 21:31 Tylenol Pm PO 2 tab HS MYNOR Administration Hydrocodone Bitart/Acetaminophen 1 tab 02/03/18 14:41 02/06/18 12:22 [place] 5/325 PO 1 tab Q4H PRN Administration Pain Amiodarone HCl 400 mg 02/03/18 21:00 02/06/18 10:25 Pacerone PO 02/08/18 21:00 400 mg BID MYNOR Administration Amiodarone HCl 200 mg 02/09/18 09:00 Pacerone PO DAILY MYNOR Apixaban 2.5 mg 02/03/18 21:00 02/06/18 10:25 Eliquis PO 2.5 mg BID MYNOR Administration Aspirin 162 mg 02/03/18 21:00 02/06/18 10:26 Ecotrin PO 162 mg BID MYNOR Administration Atenolol 25 mg 02/04/18 21:00 02/06/18 10:26 Tenormin PO 25 mg BID MYNOR Administration Cholecalciferol 1,000 unit 02/04/18 09:00 02/06/18 10:26 Vit. D-3 PO 1,000 unit DAILY MYNOR Administration Furosemide 40 mg 02/04/18 09:00 02/05/18 08:20 Lasix 40 Mg Tab PO 40 mg DAILY MYNOR Administration Linaclotide 145 mcg 02/04/18 07:30 02/06/18 06:38 Linzess PO 145 mcg 0730 MYNOR Administration Magnesium Hydroxide 30 ml 02/04/18 12:23 Mom PO DAILY PRN Constipation Nifedipine 30 mg 02/07/18 09:00 02/06/18 11:40 Procardia Xl PO 30 mg DAILY MYNOR Administration Ondansetron HCl 4 mg 02/03/18 14:41 02/06/18 09:52 Zofran IVP 4 mg Q4H PRN Administration Nausea &/or vomiting Pantoprazole Sodium 40 mg 02/07/18 08:56 02/06/18 09:35 Protonix Tab PO 40 mg ACB MYNOR Administration Polyethylene Glycol 17 gm 02/03/18 15:15 Miralax PO DAILY PRN Constipation Prochlorperazine 10 mg 02/06/18 09:00 02/06/18 14:22 Compazine PO 10 mg TID MYNOR Administration Senna/Docusate Sodium 1 tab 02/03/18 14:41 Senna Plus Tablet PO BID PRN Constipation Sodium Chloride 10 - 80 ml 02/03/18 14:41 02/06/18 05:05 Iv Flush IVF 10 ml PRN PRN Administration Flushing Trolamine Salicylate 1 applic 02/03/18 14:41 Aspercreme TOP PRN PRN Discontinued Medications Generic Name Dose Route Start Last Admin Trade Name Freq PRN Reason Stop Dose Admin Atenolol 50 mg 02/03/18 21:00 02/03/18 20:45 Tenormin PO 50 mg BID MYNOR Administration Diphenhydramine HCl 25 mg 02/06/18 12:56 02/06/18 13:13 Benadryl IVP 02/06/18 12:57 25 mg O ONE Administration Sodium Chloride 500 mls @ 150 mls/hr 02/05/18 12:08 02/05/18 16:45 Normal Saline IV 02/05/18 15:27 Infused .Q3H20M ONE Infusion Sodium Chloride 500 mls @ 250 mls/hr 02/06/18 10:00 02/06/18 13:15 Normal Saline IV 02/06/18 11:59 Infused .Q2H MYNOR Infusion Nifedipine 60 mg 02/04/18 09:00 02/05/18 08:20 Procardia Xl PO 60 mg DAILY MYNOR Administration Pharmacy Consult 1 each 02/03/18 14:41 Pharmacy Consult - Fall Risk 02/03/18 14:42 ONE TIME ONE Pneumococcal 7-Valent Conj Vacc 0.5 ml 02/04/18 18:36 02/04/18 20:41 Prevnar 13 IM 02/04/18 18:37 0.5 ml .ONCE ONE Administration Polyethylene Glycol 17 gm 02/04/18 09:00 Miralax PO DAILY MYNOR Promethazine HCl 25 mg 02/06/18 11:29 02/06/18 11:38 Phenergan Inj IM 25 mg Q6H PRN Administration - Constitutional no acute distress, morbidly obese, cooperative - Routine HEENT Exam Head: Present: normocephalic ENT: Present: mucous membranes moist - Routine Neck Exam Absent: JVD, carotid bruit - Routine Chest/Breast/Axilla Exam Chest wall: Absent: tenderness - Routine Respiratory Exam Present: CTA bilaterally, diminished air movement - Routine Cardiovascular Exam Present: RRR, no murmur. Absent: JVD - Routine Abdominal Exam Present: soft, non tender - Routine Extremities Exam Present: no edema - Routine Skin Exam Present: intact, dry, warm - Routine Neurological Exam Present: alert, oriented X3 - Routine Psychiatric Exam Present: normal affect Results 02/06/18 04:40 02/06/18 04:40 CBC 02/06/18 Range/Units 04:40 WBC 8.8 (4.5-11.0) T/MM3 RBC 3.47 L (4.00-5.20) M/MM3 Hgb 10.2 L (12-16) GM/DL Hct 32.9 L (36-46) % Plt Count 205 (130-400) T/MM3 Neut # (Auto) 5.3 (1.8-7.7) T/MM3 Lymph # (Auto) 2.4 (1-4.8) T/MM3 Tyler # (Auto) 0.7 (0-0.8) T/MM3 Eos # (Auto) 0.4 (0-0.5) T/MM3 Baso # (Auto) 0.0 (0-0.2) T/MM3 Comprehensive Metabolic Panel 02/06/18 Range/Units 04:40 Sodium 139 (134-144) MEQ/L Potassium 4.2 (3.6-5) MEQ/L Chloride 104 (98-107) MEQ/L Carbon Dioxide 21 L (22-30) MEQ/L BUN 64.0 H* (7-17) MG/DL Creatinine 3.8 H (0.7-1.2) mg/dL Glucose 103 (65-110) MG/DL Calcium 8.1 L D (8.4-10.2) MG/DL Intake and Output 02/05/18 02/06/18 02/06/18 22:59 06:59 14:59 Intake Total 500 / 500 500 / 500 Balance 500 / 500 500 / 500 Intake: IV 500 / 500 500 / 500 NS 500ml 500 ml @ 150 mls/hr IV 500 / 500 .Q3H20M ONE Rx#:[id number] Ns 500 ml @ 250 mls/hr IV .Q2H 500 / 500 MYNOR Rx#:[id number] Other: Urine Appearance Clear Clear Urine Color Dark Yellow Yellow Yellow Urine Odor Normal Normal Stool Color Brown Brown Stool Consistency Loose Watery Size of Bowel Movement Small Small # Voids 1 1 1 # Bowel Movements 1 1 Assessment and Plan - Assessment and Plan (1) PAF (paroxysmal atrial fibrillation) Current visit: No Status: Acute (2) Sinus arrest Current visit: No Status: Resolved (3) Essential (primary) hypertension Current visit: No Status: Chronic (4) Mixed hyperlipidemia Current visit: No Status: Chronic (5) Chronic kidney disease Current visit: No Status: Chronic (6) Morbid obesity with BMI of 50.0-59.9, adult Current visit: No Status: Chronic (7) NSVT (nonsustained ventricular tachycardia) Current visit: No Status: Acute - Assessment and Plan 02/04/18 Sinus Arrest Pauses resolved - Received Atenolol 50mg last evening, no pauses noted on telemetry - Will resume low dose BB this evening and watch telemetry for pauses NSVT: Continue Amiodarone 400mg BID for 1 week then 200mg daily - Not a candidate for C due to CKD and elevated BUN/SCr - EKG now - monitor cardiac telemetry PAF: Continue Eliquis 2.5mg BID for stroke prevention - Continue to monitor cardiac telemetry - HGB/ platelets stable HTN: Continue Nifedipine 60mg daily CKD:BUN 52/ Scr 2.9 - Seen by - Does not want hemodialysis. Diastolic CHF Mixed hyperlipidemia Morbid obesity with BMI of 50.0-59.9, adult 02/05/18 Hold Atenolol for now as patient is not comfortable taking it. - Continue to monitor telemetry for VTach/ AFib 02/06/18 No further dysrhythmias on tele, continue to monitor. CT abd/pelvis per attending Hospital Course Summary Disclaimer: The visit summary below is not to be considered part of the above Progress Note. Hospital Course: 02/05/18 BUN up to 60 and creatinine increased to 3.6. Lasix put on hold though she already received it this am. The hospitalist staff determined her dry weight to be around 169 kg; this am she was 167. Will give NS 500 mL bolus. Recheck BMP in am. Breathing stable on room air today - yesterday dropped briefly into the 80s. Tele - sinus. Continue amiodarone/Eliquis/BB per cardiology. <Spencer Johnson - Last Filed: 02/11/18 13:15> Exam Vital signs: Temperature 97.9 F 02/11/18 08:00 Pulse Rate 67 02/11/18 08:00 Respiratory Rate 20 02/11/18 08:00 Blood Pressure 143/61 H 02/11/18 08:00 Pulse Oximetry 91 02/11/18 08:00 Inpatient Medications: Generic Name Dose Route Start Last Admin Trade Name Freq PRN Reason Stop Dose Admin Acetaminophen 1,000 mg 02/04/18 07:00 02/11/18 08:29 Tylenol PO 1,000 mg [id number] MYNOR Administration Acetaminophen/Diphenhydramine HCl 2 tab 02/03/18 21:00 02/10/18 20:21 Tylenol Pm PO 2 tab HS MYNOR Administration Hydrocodone Bitart/Acetaminophen 1 tab 02/03/18 14:41 02/11/18 12:44 [place] 5/325 PO 1 tab Q4H PRN Administration Pain Amiodarone HCl 200 mg 02/09/18 09:00 02/11/18 08:29 Pacerone PO 200 mg DAILY MYNOR Administration Apixaban 2.5 mg 02/03/18 21:00 02/11/18 08:28 Eliquis PO 2.5 mg BID MYNOR Administration Aspirin 162 mg 02/03/18 21:00 02/11/18 08:29 Ecotrin PO 162 mg BID MYNOR Administration Cholecalciferol 1,000 unit 02/04/18 09:00 02/11/18 08:29 Vit. D-3 PO 1,000 unit DAILY MYNOR Administration Furosemide 40 mg 02/04/18 09:00 02/05/18 08:20 Lasix 40 Mg Tab PO 40 mg DAILY MYNOR Administration Linaclotide 145 mcg 02/04/18 07:30 02/08/18 07:00 Linzess PO 145 mcg 0730 MYNOR Administration Magnesium Hydroxide 30 ml 02/04/18 12:23 Mom PO DAILY PRN Constipation Metoprolol Tartrate 50 mg 02/10/18 08:00 02/11/18 08:29 Lopressor PO 50 mg BIDWM MYNOR Administration Nifedipine 30 mg 02/07/18 09:00 02/11/18 08:29 Procardia Xl PO 30 mg DAILY MYNOR Administration Nystatin 1 applic 02/09/18 15:00 02/11/18 09:00 Mycostatin TP 1 applic TID MYNOR Administration Ondansetron HCl 4 mg 02/03/18 14:41 02/08/18 00:33 Zofran IVP 4 mg Q4H PRN Administration Nausea &/or vomiting Pantoprazole Sodium 40 mg 02/07/18 08:56 02/11/18 05:32 Protonix Tab PO 40 mg ACB MYNOR Administration Polyethylene Glycol 17 gm 02/09/18 09:00 02/11/18 08:29 Miralax PO 17 gm DAILY MYNOR Administration Prochlorperazine 10 mg 02/07/18 15:52 Compazine PO TID PRN Senna/Docusate Sodium 1 tab 02/03/18 14:41 Senna Plus Tablet PO BID PRN Constipation Senna/Docusate Sodium 2 tab 02/09/18 09:00 02/11/18 08:31 Senna Plus Tablet PO 2 tab DAILY MYNOR Administration Simethicone 80 mg 02/08/18 14:29 02/08/18 15:01 Mylicon PO 80 mg Q2H PRN Administration Gas Sodium Chloride 10 - 80 ml 02/03/18 14:41 02/11/18 08:32 Iv Flush IVF 10 ml PRN PRN Administration Flushing Trolamine Salicylate 1 applic 02/03/18 14:41 Aspercreme TOP PRN PRN Discontinued Medications Generic Name Dose Route Start Last Admin Trade Name Freq PRN Reason Stop Dose Admin Acetaminophen 500 mg 02/09/18 10:14 02/09/18 10:27 Tylenol PO 02/09/18 10:15 500 mg NOW ONE Administration Amiodarone HCl 400 mg 02/03/18 21:00 02/08/18 22:33 Pacerone PO 02/08/18 21:00 400 mg BID MYNOR Administration Atenolol 50 mg 02/03/18 21:00 02/03/18 20:45 Tenormin PO 50 mg BID MYNOR Administration Atenolol 25 mg 02/04/18 21:00 02/09/18 08:34 Tenormin PO 25 mg BID MYNOR Administration Diphenhydramine HCl 25 mg 02/06/18 12:56 02/06/18 13:13 Benadryl IVP 02/06/18 12:57 25 mg O ONE Administration Sodium Chloride 500 mls @ 150 mls/hr 02/05/18 12:08 02/05/18 16:45 Normal Saline IV 02/05/18 15:27 Infused .Q3H20M ONE Infusion Sodium Chloride 500 mls @ 250 mls/hr 02/06/18 10:00 02/06/18 13:15 Normal Saline IV 02/06/18 11:59 Infused .Q2H MYNOR Infusion Sodium Chloride 1,000 mls @ 75 mls/hr 02/06/18 16:00 02/07/18 20:25 Normal Saline IV Not Given .[id number] MYNOR Nifedipine 60 mg 02/04/18 09:00 02/05/18 08:20 Procardia Xl PO 60 mg DAILY MYNOR Administration Pharmacy Consult 1 each 02/03/18 14:41 Pharmacy Consult - Fall Risk 02/03/18 14:42 ONE TIME ONE Pneumococcal 7-Valent Conj Vacc 0.5 ml 02/04/18 18:36 02/04/18 20:41 Prevnar 13 IM 02/04/18 18:37 0.5 ml .ONCE ONE Administration Polyethylene Glycol 17 gm 02/04/18 09:00 Miralax PO DAILY MYNOR Polyethylene Glycol 17 gm 02/03/18 15:15 Miralax PO DAILY PRN Constipation Prochlorperazine 10 mg 02/06/18 09:00 02/07/18 15:20 Compazine PO 10 mg TID MYNOR Administration Promethazine HCl 25 mg 02/06/18 11:29 02/06/18 11:38 Phenergan Inj IM 25 mg Q6H PRN Administration Results 02/09/18 04:16 05/01/18 04:15 Intake and Output 02/10/18 02/11/18 02/11/18 22:59 06:59 14:59 Intake Total 220 / 220 Output Total 300 / 300 250 / 250 Balance -300 / -300 -30 / -30 Intake: Oral 220 / 220 Output: Urine 300 / 300 250 / 250 Other: Urine Appearance Clear Clear Clear Urine Color Straw Straw Yellow Urine Odor Normal Normal Normal Stool Color Brown Stool Consistency Liquid Normal for Patient Size of Bowel Movement Moderate # Voids 1 1 Assessment and Plan - Assessment and Plan (1) Sinus arrest Current visit: No Status: Resolved (2) Chronic kidney disease Current visit: No Status: Chronic (3) Essential (primary) hypertension Current visit: No Status: Chronic (4) Mixed hyperlipidemia Current visit: No Status: Chronic (5) Morbid obesity with BMI of 50.0-59.9, adult Current visit: No Status: Chronic (6) PAF (paroxysmal atrial fibrillation) Current visit: No Status: Acute (7) NSVT (nonsustained ventricular tachycardia) Current visit: No Status: Acute - Attestation Attestation Narrative: 02/11/18 13:15 Recommendation After examining the patient I agree with the above assessment. I am involved in the formulation of the patient's plan of care. Hospital Course Summary Disclaimer: The visit summary below is not to be considered part of the above Progress Note.
--- NOTE | 2018-02-06 15:20 | CT Scan Report ---
Indication: RLQ abdominal pain, hematoma PROCEDURE: CT abdomen pelvis wo con: Encounter: Initial Comparison: January 14, 2017 Technique: Axial CT images were performed through the abdomen and pelvis without intravenous contrast. Coronal and sagittal two-dimensional reformats. Automated Exposure Control and Iterative Reconstruction dose reducing techniques were utilized. Findings: Exam is limited by patient body habitus causing beam hardening attenuation artifact. Atelectasis in both lower lobes. The unenhanced contours of the liver grossly normal. Gallbladder is moderately distended without evidence of stone disease or pericholecystic inflammation. The spleen, pancreas and adrenal glands are within normal limits. Kidneys are atrophic without obvious hydronephrosis. Numerous injection granulomas seen in the patient's pannus. The bladder is normal. Uterus is absent. No free fluid. No evidence of a bowel obstruction. Distended transverse colon without evidence of distended small bowel or other areas of colonic dilatation. Fluid-filled small bowel loops are noted. The appendix is surgically absent. No focal hemorrhage or hematoma appreciated. No free air. Bone windows show degenerative change in the hips and spine. Impression: Findings of a mild ileus. No other acute disease process seen. .
[2018-02-06] MEDS: NS 1,000 ML IV SCH (16:20)
[2018-02-06] MEDS: APAP/DIPHENHYDRAMINE 500 MG/25 MG TABLET PO SCH (21:28)
[2018-02-07] MEDS: NS 1,000 ML IV SCH ×2 (06:16→20:25)
[2018-02-07] MEDS: ACETAMINOPHEN 500 MG TABLET PO SCH ×2 (07:11→15:20)
[2018-02-07] MEDS: PANTOPRAZOLE 40 MG TABLET PO SCH ×2 (07:12→08:42)
[2018-02-07] MEDS: LINACLOTIDE 145 MCG CAPSULE PO SCH (07:12)
[2018-02-07] MEDS: AMIODARONE 200 MG TABLET PO SCH ×2 (08:43→20:53)
[2018-02-07] MEDS: APIXABAN 2.5 MG TABLET PO SCH ×2 (08:43→20:54)
[2018-02-07] MEDS: ASPIRIN *EC* 81 MG TABLET PO SCH ×2 (08:43→20:54)
[2018-02-07] MEDS: PROCHLORPERAZINE 10 MG TABLET PO SCH ×2 (08:44→15:20)
[2018-02-07] MEDS: ATENOLOL 25 MG TABLET PO SCH ×2 (08:44→20:55)
--- NOTE | 2018-02-07 15:51 | Progress Note ---
- Date 02/07/18 Subjective: Sully was resting in bed, relaxing. She states that she had a good day with therapy and she feels like she's making progress. She states that her breathing feels better today and her abdomen feels better as well. She denies nausea and has been eating well. She doesn't feel like she's retaining much fluid. Objective Vital signs: Temperature 97.5 F 02/07/18 08:00 Pulse Rate 62 02/07/18 08:00 Respiratory Rate 18 02/07/18 08:00 Blood Pressure 130/63 02/07/18 08:00 Pulse Oximetry 92 02/07/18 08:00 Rhythm: Normal Sinus Rhythm Height/Weight/BMI: Height 1.7 m Weight 171 kg - Constitutional Present: no acute distress, well nourished, well developed, morbidly obese - Routine HEENT Exam Head: Present: normocephalic ENT: Present: mucous membranes moist - Routine Respiratory Exam Present: CTA bilaterally (anteriorly) - Routine Cardiovascular Exam Present: RRR, S1, S2 - Routine Abdominal Exam Present: soft, non distended, non tender. Absent: normoactive bowel sounds ( hypoactive) - Routine Extremities Exam Present: no edema, pulses intact - Routine Skin Exam Present: intact, dry, warm - Routine Neurological Exam Present: alert, oriented X3, normal speech - Routine Psychiatric Exam Present: normal affect, normal thought process, cooperative Results - Labs CBC & Chem 7: 02/07/18 04:45 02/07/18 04:44 Assessment and Plan Assessment and Plan: Assessment: Generalized debility secondary to acute prolonged illness. Nausea - onset 02/01/18 Acute hypoxemic and hypercapnic respiratory failure with pulmonary edema. Her pulmonary edema is improved at this time but she continues to demonstrate evidence of dyspnea with activity and requires occasional oxygen supplementation. Diastolic heart failure, acute on chronic with pulmonary edema - EF 45-50%. Acute on chronic kidney injury. Morbid obesity - BMI 58. Diabetes mellitus type 2, not on long-term insulin Obstructive sleep apnea with obesity/hypoventilation syndrome on home BiPAP Chronic back pain with osteoarthritis Slow transit constipation Cardiac dysrhythmias characterized by paroxysmal atrial fibrillation and nonsustained ventricular tachycardia. Patient has now been started on amiodarone as of yesterday. Chronic kidney disease-stage IV (baseline SCr 2.5) Hypercholesterolemia Hypertension Plan: Slight improvement in renal function with BUN of 63 and creatinine of 3.6. Discussed with Dr. Clarke: continue IVF and continue to hold Lasix. Recheck BMP in am. Weight is trending up but pt denies dyspnea. Will make compazine PRN instead of scheduled since nausea has resolved. Discussed with RN. DVT Prophylaxis: Eliquis Resuscitation Status: Do Not Intubate - Physician Narrative Physician: Susan Clarke MD Narrative: Date: 02/07/18 Time: 1814 I have independently evaluated and examined this patient. I reviewed the chart, the patient's history, and the CARDIOPULMONARY TECHNOLOGIST/PA's documented findings as above. We discussed and formulated the assessment and plan as above with additions as below: Sully was seen at lunch in the dining area; she reported that she feels much better today and is tolerating food and liquids. She denied persistent pain and urine output is improved today compared to yesterday. NAD, alert, respirations nonlabored, weight 171 kg. Renal function as noted Discontinue fluids after current bag of saline infused, reassess renal function tomorrow at which point may elect to resume fluids but fluid balance is very problematic in this patient and at risk for pulmonary complications with ongoing IV fluids. Hospital Course Summary Disclaimer: The visit summary below is not to be considered part of the above Progress Note. Hospital Course: 02/05/18 BUN up to 60 and creatinine increased to 3.6. Lasix put on hold though she already received it this am. The hospitalist staff determined her dry weight to be around 169 kg; this am she was 167. Will give NS 500 mL bolus. Recheck BMP in am. Breathing stable on room air today - yesterday dropped briefly into the 80s. Tele - sinus. Continue amiodarone/Eliquis/BB per cardiology. 02/07 Slight improvement in renal function with BUN of 63 and creatinine of 3.6. Discussed with Dr. Clarke: continue IVF and continue to hold Lasix. Weight is trending up but pt denies dyspnea. Will make compazine PRN instead of scheduled since nausea has resolved. Addendum entered and electronically signed by Dary Kang APRN 02/07/18 16: 06: Will DC IVF after current bag has infused.
[2018-02-07] MEDS ORDERED: PROCHLORPERAZINE 10 MG TABLET PO PRN (15:52)
[2018-02-07] MEDS: SALINE FLUSH 10ml SYRINGE IVF PRN (20:26)
[2018-02-07] MEDS: APAP/DIPHENHYDRAMINE 500 MG/25 MG TABLET PO SCH (20:53)
[2018-02-08] MEDS: ONDANSETRON 4 MG/2 ML INJECTION IVP PRN (00:33)
[2018-02-08] MEDS: HYDROCODONE/APAP 5mg/325mg TABLET PO PRN (03:19)
[2018-02-08] MEDS: PANTOPRAZOLE 40 MG TABLET PO SCH (06:59)
[2018-02-08] MEDS: LINACLOTIDE 145 MCG CAPSULE PO SCH (07:00)
[2018-02-08] MEDS: AMIODARONE 200 MG TABLET PO SCH ×2 (09:24→22:33)
[2018-02-08] MEDS: APIXABAN 2.5 MG TABLET PO SCH ×2 (09:24→22:33)
[2018-02-08] MEDS: ATENOLOL 25 MG TABLET PO SCH ×2 (09:25→22:34)
[2018-02-08] MEDS: ACETAMINOPHEN 500 MG TABLET PO SCH ×2 (09:25→15:01)
[2018-02-08] MEDS: ASPIRIN *EC* 81 MG TABLET PO SCH ×2 (09:25→22:34)
[2018-02-08] MEDS: SIMETHICONE 80 MG CHEWABLE TABLET PO PRN (15:01)
--- NOTE | 2018-02-08 16:34 | Progress Note ---
- Date 02/08/18 Subjective: Sully is seen today in follow up. She is resting on Bipap. Reports some increase in abdominal boating and discomfort- improved after the addition of Simethicone. . I did ask her to let us know if sx persist. She does not report any other concerns. Mild improvement in her kidney function with IVF yesterday. Chart reviewed. Objective Vital signs: Temperature 97.5 F 02/08/18 16:00 Pulse Rate 61 02/08/18 16:00 Respiratory Rate 18 02/08/18 16:00 Blood Pressure 132/61 02/08/18 16:00 Pulse Oximetry 90 02/08/18 16:00 Rhythm: Normal Sinus Rhythm Height/Weight/BMI: Height 1.7 m Weight 172 kg - Constitutional Present: morbidly obese, cooperative - Routine HEENT Exam Head: Present: normocephalic, atraumatic Eye: Present: EOMI, PERRL - Routine Respiratory Exam Present: decreased breath sounds, CTA bilaterally, distant breath sounds - Routine Cardiovascular Exam Present: RRR, S1, S2 - Routine Abdominal Exam Present: soft, non tender. Absent: normoactive bowel sounds (Hypoactive) Comments: Difficult to assess due to body habitus. - Routine Extremities Exam Absent: cyanosis, clubbing - Routine Skin Exam Present: intact, dry, warm - Routine Neurological Exam Present: alert, oriented X3, moving all extremities - Routine Psychiatric Exam Present: cooperative Results - Labs CBC & Chem 7: 02/07/18 04:45 02/08/18 04:58 - Imaging and Cardiology CT scan - abdomen Status: image reviewed by me Additional comments: Findings: Exam is limited by patient body habitus causing beam hardening attenuation artifact. Atelectasis in both lower lobes. The unenhanced contours of the liver grossly normal. Gallbladder is moderately distended without evidence of stone disease or pericholecystic inflammation. The spleen, pancreas and adrenal glands are within normal limits. Kidneys are atrophic without obvious hydronephrosis. Numerous injection granulomas seen in the patient's pannus. The bladder is normal. Uterus is absent. No free fluid. No evidence of a bowel obstruction. Distended transverse colon without evidence of distended small bowel or other areas of colonic dilatation. Fluid-filled small bowel loops are noted. The appendix is surgically absent. No focal hemorrhage or hematoma appreciated. No free air. Bone windows show degenerative change in the hips and spine. Impression: Findings of a mild ileus. No other acute disease process seen. . Assessment and Plan (1) Acute on chronic respiratory failure with hypoxemia Current visit: Yes Status: Acute Assessment and Plan: Assessment: Generalized debility secondary to acute prolonged illness. Nausea - onset 02/01/18 Acute hypoxemic and hypercapnic respiratory failure with pulmonary edema. Her pulmonary edema is improved at this time but she continues to demonstrate evidence of dyspnea with activity and requires occasional oxygen supplementation. Diastolic heart failure, acute on chronic with pulmonary edema - EF 45-50%. Acute on chronic kidney injury. Morbid obesity - BMI 58. Diabetes mellitus type 2, not on long-term insulin Obstructive sleep apnea with obesity/hypoventilation syndrome on home BiPAP Chronic back pain with osteoarthritis Slow transit constipation Cardiac dysrhythmias characterized by paroxysmal atrial fibrillation and nonsustained ventricular tachycardia. Patient has now been started on amiodarone as of yesterday. Chronic kidney disease-stage IV (baseline SCr 2.5) Hypercholesterolemia Hypertension Plan: 02/08/18 Patient continues to report some abdominal discomfort and distention. Possible mild ileus on CT done earlier in the week. Will repeat KUB in AM. May need to add Dulcolax [place] if persists. Home BIpap may be contributing to excess air in GI system. CT reviewed- no overt constipation. HR is controlled on Amiodarone. SCR mildly decreased with IVF. Will hold off on further due to recurrent issues with fluid overload. HGB is trending down a little- monitor closely. Plan repeat labs in AM for reassessment. DVT Prophylaxis: Eliquis GI Prophylaxis: Protonix Resuscitation Status: Do Not Intubate - Physician Narrative Physician: Susan Clarke MD Narrative: Date: 02/08/18 Time: 0 I have independently evaluated and examined this patient. I reviewed the chart, the patient's history, and the AIRPLANE ELECTRICIAN/PA's documented findings as above. We discussed and formulated the assessment and plan as above with additions as below: Sully reports no ongoing nausea or vomiting, urine output has improved without dysuria, lower extremity edema is about what it's been the past couple of weeks but increased from what she would consider baseline. She denies dyspnea. She complains of increased number of loose stools and asked if this may be due to Linzess which she's recently resumed. Respirations nonlabored, decreased airflow but breath sounds are clear, abdomen soft/obese. +3 edema bilateral lower extremities Linzess commonly triggers diarrhea-per patient request will place on hold and resume prior bowel regimen of MiraLAX and 2 senna tablets daily and reevaluate. Continue to monitor renal function closely, fluid balance tenuous-because of increased edema I'm reluctant to add fluids unless BUN/creatinine climbing. Lasix remains on hold. Hospital Course Summary Disclaimer: The visit summary below is not to be considered part of the above Progress Note. Hospital Course: 02/05/18 BUN up to 60 and creatinine increased to 3.6. Lasix put on hold though she already received it this am. The hospitalist staff determined her dry weight to be around 169 kg; this am she was 167. Will give NS 500 mL bolus. Recheck BMP in am. Breathing stable on room air today - yesterday dropped briefly into the 80s. Tele - sinus. Continue amiodarone/Eliquis/BB per cardiology. 02/07 Slight improvement in renal function with BUN of 63 and creatinine of 3.6. Discussed with Dr. Clarke: continue IVF and continue to hold Lasix. Weight is trending up but pt denies dyspnea. Will make compazine PRN instead of scheduled since nausea has resolved. Plan: 02/08/18 Patient continues to report some abdominal discomfort and distention. Possible mild ileus on CT done earlier in the week. Will repeat KUB in AM. May need to add Dulcolax TX if persists. Home BIpap may be contributing to excess air in GI system. CT reviewed- no overt constipation. HR is controlled on Amiodarone. SCR mildly decreased with IVF. Will hold off on further due to recurrent issues with fluid overload. HGB is trending down a little- monitor closely. Plan repeat labs in AM for reassessment.
[2018-02-08] MEDS: APAP/DIPHENHYDRAMINE 500 MG/25 MG TABLET PO SCH (22:34)
[2018-02-08] MEDS: SALINE FLUSH 10ml SYRINGE IVF PRN (22:36)
[2018-02-09] MEDS: PANTOPRAZOLE 40 MG TABLET PO SCH (06:11)
[2018-02-09] MEDS: ACETAMINOPHEN 500 MG TABLET PO SCH ×2 (06:12→14:16)
[2018-02-09] MEDS: ASPIRIN *EC* 81 MG TABLET PO SCH ×2 (08:33→20:06)
[2018-02-09] MEDS: SENNA + DOCUSATE TABLET PO SCH (08:33)
[2018-02-09] MEDS: POLYETHYL GLYCOL 3350 17gm PACKET PO SCH (08:33)
[2018-02-09] MEDS: ATENOLOL 25 MG TABLET PO SCH (08:34)
[2018-02-09] MEDS: AMIODARONE 200 MG TABLET PO SCH (08:34)
[2018-02-09] MEDS: SALINE FLUSH 10ml SYRINGE IVF PRN (08:34)
[2018-02-09] MEDS: APIXABAN 2.5 MG TABLET PO SCH ×2 (08:34→20:06)
[2018-02-09] MEDS ORDERED: ACETAMINOPHEN 500 MG TABLET PO ONE (10:14)
--- NOTE | 2018-02-09 10:46 | IRU Progress Note ---
- Subjective/Serverity of Illness Date: 02/09/18 Sully continues to be medically complex with regard to fluid management. Her weight was down a bit and she was given some IV fluids which improved her creatinine slightly. It remains elevated above baseline here at least. Her Lasix is currently on hold. She does complain of dyspnea with activity. She denies any chest pain. She reports that her appetite is adequate. In addition, she complained of some abdominal discomfort. CT abdomen was performed demonstrating a mild ileus. Symptoms are improved at the present time. Lens this was discontinued as this has caused diarrhea for her. She is now back on MiraLAX. Brief therapy update: For occupational therapy, bathing his improved from maximum to moderate assistance. Upper body dressing improved from moderate assistance to standby assistance. Lower body dressing improved from total assistance to moderate assistance. Physical therapy bed/chair/winter transfers are with total assistance of 2 or more. At home she was able to ambulate about 20 feet with a walker and her right behind her. Have not attempted walking here. She continues to have significant shortness of breath with activity and easy fatigability. Her weight has increased from 168 up to 172 kg. Her creatinine is now 3.5. Update on medical issues we are actively monitoring/managin. Acute hypoxemic and hypercapnic respiratory failure with pulmonary edema. Continues to have markedly decreased exercise tolerance, dyspnea with activity. However her requirement for supplemental oxygen is improved. Her lungs sound clear at the present time with decreased breath sounds. 2. Diastolic heart failure, acute on chronic with pulmonary edema: Pulmonary edema appears to have resolved at least clinically. She continues to have dyspnea with activity and easy fatigability. Her weight is up a bit. She has been given additional IV fluids because of acute on chronic kidney failure. 3. Acute on chronic kidney injury: Please see above discussion. Creatinine currently 3.5. 4. Morbid obesity 5. Diabetes mellitus type 2, not on long-term insulin: Blood sugars are reviewed and are stable. 6. Obstructive sleep apnea with obesity/hypoventilation syndrome on home BiPAP 7. Chronic back pain with osteoarthritis: She requires regular doses of Tylenol. 8. Slow transit constipation: Recent CT scan demonstrated mild ileus. 9. Cardiac dysrhythmias characterized by paroxysmal atrial fibrillation and nonsustained ventricular tachycardia. Patient is followed by cardiology. Remains on amiodarone as well as Eliquis 2.5 mg twice daily. Exam Vital Signs: Temperature 97.4 F 02/09/18 08:00 Pulse Rate 66 02/09/18 08:00 Respiratory Rate 18 02/09/18 08:00 Blood Pressure 135/66 02/09/18 08:00 Pulse Oximetry 90 02/09/18 08:00 Height/Weight/BMI: Height 1.7 m Weight 172 kg - Constitutional Present: mild distress (dyspnea with activity), well nourished, well developed, morbidly obese, cooperative - Routine HEENT Exam Head: Present: normocephalic Eye: Present: EOMI ENT: Present: mucous membranes moist, oropharynx clear - Routine Respiratory Exam Present: dyspnea, decreased breath sounds, CTA bilaterally. Absent: wheezes, crackles - Routine Cardiovascular Exam Present: RRR, S1, S2. Absent: murmur Comments: Hx of AF but sounds regular today. - Routine Abdominal Exam Present: soft, normoactive bowel sounds, non distended. Absent: tenderness - Routine Extremities Exam Present: edema, normal capillary refill. Absent: pulses intact - Routine Skin Exam Present: dry, warm - Routine Neurological Exam Present: alert, oriented X3, CN II-XII intact - Routine Psychiatric Exam Present: normal affect, normal thought process, cooperative, good insight, good judgment Results IRU - Labs Labs: Have reviewed extensive laboratory results as well as other providers notes. IRU A/P (1) Acute on chronic respiratory failure with hypoxemia Current visit: Yes Status: Acute Continues to have evidence of respiratory failure with significant dyspnea with activity. Her requirement for oxygen however has improved. (2) Acute on chronic kidney failure Qualifiers: Acute renal failure type: unspecified Chronic kidney disease stage: stage 4 (severe) Qualified Code(s): N17.9 - Acute kidney failure, unspecified; N18.4 - Chronic kidney disease, stage 4 (severe) Current visit: Yes Status: Acute Management of her renal failure and fluid balance is very difficult. She is very sensitive to dehydration which bumped her creatinine. Was recently given some additional IV fluids with slight improvement in creatinine. Creatinine remains above baseline at 3.5. (3) Diastolic CHF, acute on chronic Current visit: Yes Status: Acute (4) PAF (paroxysmal atrial fibrillation) Current visit: No Status: Acute She remains on Eliquis without evidence of bleeding. Remains on amiodarone. Heart rhythm today clinically sounds regular. DVT Prophylaxis: Eliquis Resuscitation Status: Do Not Intubate - Course Hospital Course: Tevin Rice MD: 02/05/18 14:57 Patient is cooperating with physical therapy. Is making an effort to increase her stamina. Pain is controlled and we will reevaluate tomorrow. Medical issues being managed including acute on chronic kidney injury. Continue with physical therapy and occupational therapy support. 02/09/18 10:48 Medically complex. Easily fatigued with therapy. Lasix on hold. Received IV fluids over the weekend. CT scan showed ileus. - Interventions to Obtain Goals PT Treatment Plan: Balance/Proprioception, Functional Activities, Gait Training , Patient/Family Education, Therapeutic Exercise OT Treatment Plan: ADL (Basic Care), Balance Training, Pt./Family Education, Ther. Exercise for ADL Goals Progress/Modifications: Patient remains quite medically complex. She is very sensitive to fluid balance. She does have markedly reduced exercise tolerance. She has significant dyspnea with activity. Oxygen requirements are improved. She does have diastolic heart failure. Her creatinine is stable at 3.5 although likely slightly above her baseline. She was given IV fluids over the weekend. CT scan of the abdomen demonstrated some ileus. She denies any chest pains. She is making slow progress with therapy but has not attempted walking at present.
--- NOTE | 2018-02-09 13:22 | IRU Team Meeting ---
IRU Team Meeting - Nursing Bladder Assistive Devices Utilized:: Bedside Commode, Absorbent Pad Bladder Management Level of Assist: Total Assistance Bladder Frequency of Accidents: No accidents Bowel Assistive Devices Utilized:: Medication, Bedpan, Absorbent Pad Bowel Management Level of Assist: Total Assistance Bowel Frequency of Accidents: 1 accident this shift Vital Signs: Vital Signs - 24 hr 02/08/18 16:00 02/08/18 22:30 02/09/18 00:00 Temperature 97.5 F 97.8 F Pulse Rate 61 67 66 Respiratory Rate 18 20 Blood Pressure 132/61 118/53 Pulse Oximetry 90 94 02/09/18 08:00 Temperature 97.4 F Pulse Rate 66 Respiratory Rate 18 Blood Pressure 135/66 Pulse Oximetry 90 Current Medications: Acetaminophen (Tylenol) 1,000 mg PO [id number] [facility] Last Admin: 02/09/18 06:12 Dose: 500 mg Acetaminophen/Diphenhydramine HCl (Tylenol Pm) 2 tab PO HS [facility] Last Admin: 02/08/18 22:34 Dose: 2 tab Hydrocodone Bitart/Acetaminophen (Calvert 5/325) 1 tab PO Q4H PRN PRN Reason: Pain Last Admin: 02/08/18 03:19 Dose: 1 tab Amiodarone HCl (Pacerone) 200 mg PO DAILY [facility] Last Admin: 02/09/18 08:34 Dose: 200 mg Apixaban (Eliquis) 2.5 mg PO BID [facility] Last Admin: 02/09/18 08:34 Dose: 2.5 mg Aspirin (Ecotrin) 162 mg PO BID [facility] Last Admin: 02/09/18 08:33 Dose: 162 mg Atenolol (Tenormin) 25 mg PO BID [facility] Last Admin: 02/09/18 08:34 Dose: 25 mg Cholecalciferol (Vit. D-3) 1,000 unit PO DAILY [facility] Last Admin: 02/09/18 08:33 Dose: 1,000 unit Furosemide (Lasix 40 Mg Tab) 40 mg PO DAILY [facility] Last Admin: 02/05/18 08:20 Dose: 40 mg Linaclotide (Linzess) 145 mcg PO 0730 [facility] Last Admin: 02/08/18 07:00 Dose: 145 mcg Magnesium Hydroxide (Mom) 30 ml PO DAILY PRN PRN Reason: Constipation Nifedipine (Procardia Xl) 30 mg PO DAILY [facility] Last Admin: 02/09/18 08:34 Dose: 30 mg Nystatin (Mycostatin) 1 applic TP TID [facility] Ondansetron HCl (Zofran) 4 mg IVP Q4H PRN PRN Reason: Nausea &/or vomiting Last Admin: 02/08/18 00:33 Dose: 4 mg Pantoprazole Sodium (Protonix Tab) 40 mg PO ACB MY[facility] Last Admin: 02/09/18 06:11 Dose: 40 mg Polyethylene Glycol (Miralax) 17 gm PO DAILY [facility] Last Admin: 02/09/18 08:33 Dose: 17 gm Prochlorperazine (Compazine) 10 mg PO TID PRN Senna/Docusate Sodium (Senna Plus Tablet) 1 tab PO BID PRN PRN Reason: Constipation Senna/Docusate Sodium (Senna Plus Tablet) 2 tab PO DAILY [facility] Last Admin: 02/09/18 08:33 Dose: 2 tab Simethicone (Mylicon) 80 mg PO Q2H PRN PRN Reason: Gas Last Admin: 02/08/18 15:01 Dose: 80 mg Sodium Chloride (Iv Flush) 10 - 80 ml IVF PRN PRN PRN Reason: Flushing Last Admin: 02/09/18 08:34 Dose: 10 ml Trolamine Salicylate (Aspercreme) 1 applic TOP PRN PRN Current Medical Issues: Acute on chronic kidney failure (current creatinine 3.5), slow transit constipation, nausea, paroxysmal atrial fibrillation, new usage of Eliquis, fluid balance Comments: I certify that I personally led the interdisciplinary team meeting and agree with comments, barriers and goals indicated. Team meeting was held in the patient's room with the patient and the following family members present: patient's Sully receive some IV fluids over the weekend because of assessment of excess dryness. This did improve her creatinine slightly. It is now 3.5. She continues to have markedly decreased exercise tolerance and easy fatigability. She has paroxysmal atrial fibrillation and is tolerating Eliquis and amiodarone adequately. She did develop worsening nausea and gas over the weekend. CT scan demonstrated ileus. Gas was improved with simethicone. Medications switched from Linzess to MiraLAX. - Physical Therapy Bed, Chair, Wheelchair Transfer Assist: Maximal Assistance, 1 Person Assist Ambulation Ability: Patient Unsafe/Unable Wheelchair Propulsion Ability: Total Assistance, 1 Person Assist Wheelchair Propulsion Distance: 30 Stair Climbing Ability: Patient Unsafe/Unable Car Transfer Ability: Patient Unsafe/Unable Comments: Dell is demonstrated improved bed mobility with requirement for decreased assistance. She has easy fatigability and requires encouragement for progress. She does have poor range of motion and strength in both lower extremities. She does require frequent rest breaks. - Occupational Therapy Eating Ability: Independent Grooming Ability: Stand By Assist/Supervision Bathing Ability: Total Assistance, 1 Person Assist Upper Body Dressing Ability: Maximal Assistance Lower Body Dressing Ability: Total Assistance Tub Transfer Assist: Total Assistance, 2 or More Person Assist Toileting Assist: Total Assistance Toilet Transfer Assist: Total Assistance, 2 or More Person Assist Comments: She has made minimal progress this week. She does display self limiting ADL performance. Patient was encouraged to participate more with occupational therapy/ADL activities in order to make progress. - Goals Physical Therapy Goals: 02/09/18: 1. Pt will transfer with FWW with max assist. 2. Pt will propel w/ch 50 ft with stand by assist. Occupational Therapy Goals: 02/09. 1. Patient to perform UE dressing with mod A in order to improve independence towards PLOF. 2. Patient to perform LE dressing for sock/shoe donning with max A with use of AE in order to decrease dependence on home caregiver and improve independence. 3. Patient to perform bathing with max A in order to improve independence towards PLOF. - Barriers to Discharge Barriers to Attaining Goals: Weakness (participation in progressive strengthening activities), Endurance (encouragement for fear rest breaks), Pain Control (Tylenol provided along with encouragement to participate in therapy) - Care Plan Anticipated Length of Stay (days): 14 Anticipated Length of Stay: Reassess in one week Anticipated DC Destination: Home, Self Care, Home Health Service I have led this team conference and agree with the plan. Interventions/Goals: Patient states that she has a goal of being able to walk up to 20 feet as she did prior to admission. She has made some progress over this last week and we recommend continuing PT and OT and reassessment in 1 week. Medical issues of fluid excess, chronic kidney disease, morbid obesity and dyspnea play a role in limiting progress.
--- NOTE | 2018-02-09 13:35 | XRay Report ---
EXAM: XR KUB DICTATION LOCATION: [place] INDICATION: Ileus COMPARISON STUDY: None available. FINDINGS: Abdomen: Gas distended bowel loops are demonstrated throughout the abdomen suggestive of a ileus and appears to be fairly similar when compared to the prior CT scan three days earlier predominantly involving the colon. No free intraperitoneal air is identified. No abnormal radiopacities overlying the abdomen. The lung bases are clear. Skeletal Structures: The visualized skeletal structures are within normal limits. IMPRESSION: 1. Gas distended bowel loops again noted similar to the previous study and likely reflect underlying ileus. .
--- NOTE | 2018-02-09 18:02 | Cardiology Progress Note ---
<Montse Valenzuela - Last Filed: 02/09/18 18:46> Subjective Principal diagnosis: NSVT, A Fib Interval history: Sully is seen in follow up for arrhythmias, including sinus pause, PAF and NSVT. She is examined in the dining room. States she is feeling stronger. She denies chest pain, pressure, palpitations, dyspnea. Exam Vital signs: Temperature 97.8 F 02/09/18 15:43 Pulse Rate 68 02/09/18 15:43 Respiratory Rate 22 02/09/18 15:43 Blood Pressure 133/64 02/09/18 15:43 Pulse Oximetry 91 02/09/18 15:43 Inpatient Medications: Generic Name Dose Route Start Last Admin Trade Name Freq PRN Reason Stop Dose Admin Acetaminophen 1,000 mg 02/04/18 07:00 02/09/18 14:16 Tylenol PO 1,000 mg [id number] MYNOR Administration Acetaminophen/Diphenhydramine HCl 2 tab 02/03/18 21:00 02/08/18 22:34 Tylenol Pm PO 2 tab HS MYNOR Administration Hydrocodone Bitart/Acetaminophen 1 tab 02/03/18 14:41 02/08/18 03:19 [place] 5/325 PO 1 tab Q4H PRN Administration Pain Amiodarone HCl 200 mg 02/09/18 09:00 02/09/18 08:34 Pacerone PO 200 mg DAILY MYNOR Administration Apixaban 2.5 mg 02/03/18 21:00 02/09/18 08:34 Eliquis PO 2.5 mg BID MYNOR Administration Aspirin 162 mg 02/03/18 21:00 02/09/18 08:33 Ecotrin PO 162 mg BID MYNOR Administration Cholecalciferol 1,000 unit 02/04/18 09:00 02/09/18 08:33 Vit. D-3 PO 1,000 unit DAILY MYNOR Administration Furosemide 40 mg 02/04/18 09:00 02/05/18 08:20 Lasix 40 Mg Tab PO 40 mg DAILY MYNOR Administration Linaclotide 145 mcg 02/04/18 07:30 02/08/18 07:00 Linzess PO 145 mcg 0730 MYNOR Administration Magnesium Hydroxide 30 ml 02/04/18 12:23 Mom PO DAILY PRN Constipation Metoprolol Tartrate 50 mg 02/10/18 08:00 Lopressor PO BIDWM MYNOR Nifedipine 30 mg 02/07/18 09:00 02/09/18 08:34 Procardia Xl PO 30 mg DAILY MYNOR Administration Nystatin 1 applic 02/09/18 15:00 02/09/18 14:16 Mycostatin TP 1 applic TID MYNOR Administration Ondansetron HCl 4 mg 02/03/18 14:41 02/08/18 00:33 Zofran IVP 4 mg Q4H PRN Administration Nausea &/or vomiting Pantoprazole Sodium 40 mg 02/07/18 08:56 02/09/18 06:11 Protonix Tab PO 40 mg ACB MYNOR Administration Polyethylene Glycol 17 gm 02/09/18 09:00 02/09/18 08:33 Miralax PO 17 gm DAILY MYNOR Administration Prochlorperazine 10 mg 02/07/18 15:52 Compazine PO TID PRN Senna/Docusate Sodium 1 tab 02/03/18 14:41 Senna Plus Tablet PO BID PRN Constipation Senna/Docusate Sodium 2 tab 02/09/18 09:00 02/09/18 08:33 Senna Plus Tablet PO 2 tab DAILY MYNOR Administration Simethicone 80 mg 02/08/18 14:29 02/08/18 15:01 Mylicon PO 80 mg Q2H PRN Administration Gas Sodium Chloride 10 - 80 ml 02/03/18 14:41 02/09/18 08:34 Iv Flush IVF 10 ml PRN PRN Administration Flushing Trolamine Salicylate 1 applic 02/03/18 14:41 Aspercreme TOP PRN PRN Discontinued Medications Generic Name Dose Route Start Last Admin Trade Name Freq PRN Reason Stop Dose Admin Acetaminophen 500 mg 02/09/18 10:14 02/09/18 10:27 Tylenol PO 02/09/18 10:15 500 mg NOW ONE Administration Amiodarone HCl 400 mg 02/03/18 21:00 02/08/18 22:33 Pacerone PO 02/08/18 21:00 400 mg BID MYNOR Administration Atenolol 50 mg 02/03/18 21:00 02/03/18 20:45 Tenormin PO 50 mg BID MYNOR Administration Atenolol 25 mg 02/04/18 21:00 02/09/18 08:34 Tenormin PO 25 mg BID MYNOR Administration Diphenhydramine HCl 25 mg 02/06/18 12:56 02/06/18 13:13 Benadryl IVP 02/06/18 12:57 25 mg O ONE Administration Sodium Chloride 500 mls @ 150 mls/hr 02/05/18 12:08 02/05/18 16:45 Normal Saline IV 02/05/18 15:27 Infused .Q3H20M ONE Infusion Sodium Chloride 500 mls @ 250 mls/hr 02/06/18 10:00 02/06/18 13:15 Normal Saline IV 02/06/18 11:59 Infused .Q2H MYNOR Infusion Sodium Chloride 1,000 mls @ 75 mls/hr 02/06/18 16:00 02/07/18 20:25 Normal Saline IV Not Given .[id number] MYNOR Nifedipine 60 mg 02/04/18 09:00 02/05/18 08:20 Procardia Xl PO 60 mg DAILY MYNOR Administration Pharmacy Consult 1 each 02/03/18 14:41 Pharmacy Consult - Fall Risk 02/03/18 14:42 ONE TIME ONE Pneumococcal 7-Valent Conj Vacc 0.5 ml 02/04/18 18:36 02/04/18 20:41 Prevnar 13 IM 02/04/18 18:37 0.5 ml .ONCE ONE Administration Polyethylene Glycol 17 gm 02/04/18 09:00 Miralax PO DAILY MYNOR Polyethylene Glycol 17 gm 02/03/18 15:15 Miralax PO DAILY PRN Constipation Prochlorperazine 10 mg 02/06/18 09:00 02/07/18 15:20 Compazine PO 10 mg TID MYNOR Administration Promethazine HCl 25 mg 02/06/18 11:29 02/06/18 11:38 Phenergan Inj IM 25 mg Q6H PRN Administration - Constitutional no acute distress, morbidly obese, cooperative - Routine HEENT Exam Head: Present: normocephalic ENT: Present: mucous membranes moist - Routine Neck Exam Absent: JVD, carotid bruit - Routine Chest/Breast/Axilla Exam Chest wall: Absent: tenderness - Routine Respiratory Exam Present: diminished air movement. Absent: dyspnea - Routine Cardiovascular Exam Present: RRR, no murmur. Absent: JVD - Routine Extremities Exam Present: edema - Routine Skin Exam Present: intact, dry, warm - Routine Neurological Exam Present: alert, oriented X3 - Routine Psychiatric Exam Present: normal affect, normal thought process Results 02/09/18 04:16 02/09/18 04:16 CBC 02/09/18 Range/Units 04:16 WBC 7.8 (4.5-11.0) T/MM3 RBC 3.45 L (4.00-5.20) M/MM3 Hgb 10.3 L (12-16) GM/DL Hct 32.6 L (36-46) % Plt Count 192 (130-400) T/MM3 Neut # (Auto) 5.1 (1.8-7.7) T/MM3 Lymph # (Auto) 1.7 (1-4.8) T/MM3 [place] # (Auto) 0.6 (0-0.8) T/MM3 Eos # (Auto) 0.4 (0-0.5) T/MM3 Baso # (Auto) 0.0 (0-0.2) T/MM3 Comprehensive Metabolic Panel 02/09/18 Range/Units 04:16 Sodium 142 (134-144) MEQ/L Potassium 4.2 (3.6-5) MEQ/L Chloride 110 H (98-107) MEQ/L Carbon Dioxide 21 L (22-30) MEQ/L BUN 60.0 H* (7-17) MG/DL Creatinine 3.5 H (0.7-1.2) mg/dL Glucose 100 (65-110) MG/DL Calcium 7.7 L (8.4-10.2) MG/DL Albumin 3.5 (3.5-5.0) g/dL Intake and Output 02/09/18 02/09/18 02/09/18 06:59 14:59 22:59 Intake Total 1260 / 1260 Output Total 300 / 300 200 / 200 Balance -300 / -300 1060 / 1060 Intake: Oral 1260 / 1260 Output: Urine 300 / 300 200 / 200 Other: Urine Appearance Clear Clear Urine Color Yellow Light Holli Urine Odor Normal Stool Color Brown Size of Bowel Movement Moderate # Voids 1 1 # Bowel Movements 1 Weight 376 lb 15.847 oz Patient Weight 02/10/18 06:59 Weight 376 lb 15.847 oz Assessment and Plan - Assessment and Plan (1) PAF (paroxysmal atrial fibrillation) Current visit: No Status: Acute (2) Sinus arrest Current visit: No Status: Resolved (3) Essential (primary) hypertension Current visit: No Status: Chronic (4) Mixed hyperlipidemia Current visit: No Status: Chronic (5) Chronic kidney disease Current visit: No Status: Chronic (6) Morbid obesity with BMI of 50.0-59.9, adult Current visit: No Status: Chronic (7) NSVT (nonsustained ventricular tachycardia) Current visit: No Status: Acute - Assessment and Plan 02/04/18 Sinus Arrest Pauses resolved - Received Atenolol 50mg last evening, no pauses noted on telemetry - Will resume low dose BB this evening and watch telemetry for pauses NSVT: Continue Amiodarone 400mg BID for 1 week then 200mg daily - Not a candidate for LHC due to CKD and elevated BUN/SCr - EKG now - monitor cardiac telemetry PAF: Continue Eliquis 2.5mg BID for stroke prevention - Continue to monitor cardiac telemetry - HGB/ platelets stable HTN: Continue Nifedipine 60mg daily CKD:BUN 52/ Scr 2.9 - Seen by - Does not want hemodialysis. Diastolic CHF Mixed hyperlipidemia Morbid obesity with BMI of 50.0-59.9, adult 02/05/18 Hold Atenolol for now as patient is not comfortable taking it. - Continue to monitor telemetry for VTach/ AFib 02/06/18 No further dysrhythmias on tele, continue to monitor. CT abd/pelvis per attending 02/09/18 Stop Atenolol as cleared by renal - Start Metoprolol 50mg po BID - continue to monitor telemetry Hospital Course Summary Disclaimer: The visit summary below is not to be considered part of the above Progress Note. Hospital Course: 02/05/18 BUN up to 60 and creatinine increased to 3.6. Lasix put on hold though she already received it this am. The hospitalist staff determined her dry weight to be around 169 kg; this am she was 167. Will give NS 500 mL bolus. Recheck BMP in am. Breathing stable on room air today - yesterday dropped briefly into the 80s. Tele - sinus. Continue amiodarone/Eliquis/BB per cardiology. 02/07 Slight improvement in renal function with BUN of 63 and creatinine of 3.6. Discussed with Dr. Clarke: continue IVF and continue to hold Lasix. Weight is trending up but pt denies dyspnea. Will make compazine PRN instead of scheduled since nausea has resolved. Plan: 02/08/18 Patient continues to report some abdominal discomfort and distention. Possible mild ileus on CT done earlier in the week. Will repeat KUB in AM. May need to add Dulcolax TN if persists. Home BIpap may be contributing to excess air in GI system. CT reviewed- no overt constipation. HR is controlled on Amiodarone. SCR mildly decreased with IVF. Will hold off on further due to recurrent issues with fluid overload. HGB is trending down a little- monitor closely. Plan repeat labs in AM for reassessment. <Spencer Johnson - Last Filed: 02/16/18 18:09> Exam Vital signs: Temperature 98.3 F 02/16/18 15:43 Pulse Rate 68 02/16/18 16:00 Respiratory Rate 18 02/16/18 15:43 Blood Pressure 153/72 H 02/16/18 15:43 Pulse Oximetry 93 02/16/18 15:43 Inpatient Medications: Generic Name Dose Route Start Last Admin Trade Name Freq PRN Reason Stop Dose Admin Acetaminophen 1,000 mg 02/04/18 07:00 02/16/18 15:15 Tylenol PO 1,000 mg [id number] MYNOR Administration Acetaminophen/Diphenhydramine HCl 2 tab 02/03/18 21:00 02/15/18 21:14 Tylenol Pm PO 2 tab HS MYNOR Administration Hydrocodone Bitart/Acetaminophen 1 tab 02/03/18 14:41 02/15/18 23:39 [place] 5/325 PO 1 tab Q4H PRN Administration Pain Amiodarone HCl 200 mg 02/09/18 09:00 02/16/18 08:34 Pacerone PO 200 mg DAILY MYNOR Administration Apixaban 2.5 mg 02/03/18 21:00 02/16/18 08:35 Eliquis PO 2.5 mg BID MYNOR Administration Cholecalciferol 1,000 unit 02/04/18 09:00 02/16/18 08:35 Vit. D-3 PO 1,000 unit DAILY MYNOR Administration Furosemide 40 mg 02/04/18 09:00 02/05/18 08:20 Lasix 40 Mg Tab PO 40 mg DAILY MYNOR Administration Linaclotide 145 mcg 02/04/18 07:30 02/08/18 07:00 Linzess PO 145 mcg 0730 MYNOR Administration Magnesium Hydroxide 30 ml 02/04/18 12:23 Mom PO DAILY PRN Constipation Metoprolol Tartrate 50 mg 02/10/18 08:00 02/16/18 17:34 Lopressor PO 50 mg BIDWM MYNOR Administration Nifedipine 30 mg 02/07/18 09:00 02/16/18 08:35 Procardia Xl PO 30 mg DAILY MYNOR Administration Nystatin 1 applic 02/09/18 15:00 02/16/18 15:15 Mycostatin TP 1 applic TID MYNOR Administration Ondansetron HCl 4 mg 02/03/18 14:41 02/08/18 00:33 Zofran IVP 4 mg Q4H PRN Administration Nausea &/or vomiting Pantoprazole Sodium 40 mg 02/07/18 08:56 02/16/18 05:41 Protonix Tab PO Not Given ACB MYNOR Polyethylene Glycol 17 gm 02/09/18 09:00 02/16/18 08:35 Miralax PO 17 gm DAILY MYNOR Administration Prochlorperazine 5 mg 02/16/18 12:35 Compazine PO TID PRN Senna/Docusate Sodium 1 tab 02/03/18 14:41 Senna Plus Tablet PO BID PRN Constipation Senna/Docusate Sodium 2 tab 02/09/18 09:00 02/16/18 08:35 Senna Plus Tablet PO 2 tab DAILY MYNOR Administration Simethicone 80 mg 02/08/18 14:29 02/13/18 19:19 Mylicon PO 80 mg Q2H PRN Administration Gas Sodium Chloride 10 - 80 ml 02/03/18 14:41 02/13/18 17:42 Iv Flush IVF 10 ml PRN PRN Administration Flushing Trolamine Salicylate 1 applic 02/03/18 14:41 Aspercreme TOP PRN PRN Discontinued Medications Generic Name Dose Route Start Last Admin Trade Name Freq PRN Reason Stop Dose Admin Acetaminophen 500 mg 02/09/18 10:14 02/09/18 10:27 Tylenol PO 02/09/18 10:15 500 mg NOW ONE Administration Amiodarone HCl 400 mg 02/03/18 21:00 02/08/18 22:33 Pacerone PO 02/08/18 21:00 400 mg BID MYNOR Administration Aspirin 162 mg 02/03/18 21:00 02/11/18 08:29 Ecotrin PO 162 mg BID MYNOR Administration Atenolol 50 mg 02/03/18 21:00 02/03/18 20:45 Tenormin PO 50 mg BID MYNOR Administration Atenolol 25 mg 02/04/18 21:00 02/09/18 08:34 Tenormin PO 25 mg BID MYNOR Administration Diphenhydramine HCl 25 mg 02/06/18 12:56 02/06/18 13:13 Benadryl IVP 02/06/18 12:57 25 mg O ONE Administration Sodium Chloride 500 mls @ 150 mls/hr 02/05/18 12:08 02/05/18 16:45 Normal Saline IV 02/05/18 15:27 Infused .Q3H20M ONE Infusion Sodium Chloride 500 mls @ 250 mls/hr 02/06/18 10:00 02/06/18 13:15 Normal Saline IV 02/06/18 11:59 Infused .Q2H MYNOR Infusion Sodium Chloride 1,000 mls @ 75 mls/hr 02/06/18 16:00 02/07/18 20:25 Normal Saline IV Not Given .[id number] MYNOR Nifedipine 60 mg 02/04/18 09:00 02/05/18 08:20 Procardia Xl PO 60 mg DAILY MYNOR Administration Pharmacy Consult 1 each 02/03/18 14:41 Pharmacy Consult - Fall Risk 02/03/18 14:42 ONE TIME ONE Pneumococcal 7-Valent Conj Vacc 0.5 ml 02/04/18 18:36 02/04/18 20:41 Prevnar 13 IM 02/04/18 18:37 0.5 ml .ONCE ONE Administration Polyethylene Glycol 17 gm 02/04/18 09:00 Miralax PO DAILY MYNOR Polyethylene Glycol 17 gm 02/03/18 15:15 Miralax PO DAILY PRN Constipation Prochlorperazine 10 mg 02/06/18 09:00 02/07/18 15:20 Compazine PO 10 mg TID MYNOR Administration Prochlorperazine 10 mg 02/07/18 15:52 Compazine PO TID PRN Prochlorperazine 10 mg 02/11/18 15:00 02/16/18 08:35 Compazine PO 10 mg TID MYNOR Administration Promethazine HCl 25 mg 02/06/18 11:29 02/06/18 11:38 Phenergan Inj IM 25 mg Q6H PRN Administration Results 02/16/18 04:42 02/16/18 04:42 CBC 02/16/18 Range/Units 04:42 WBC 6.3 (4.5-11.0) T/MM3 RBC 3.37 L (4.00-5.20) M/MM3 Hgb 10.0 L (12-16) GM/DL Hct 32.3 L (36-46) % Plt Count 317 D (130-400) T/MM3 Neut # (Auto) 3.2 (1.8-7.7) T/MM3 Lymph # (Auto) 2.1 (1-4.8) T/MM3 [place] # (Auto) 0.6 (0-0.8) T/MM3 Eos # (Auto) 0.4 (0-0.5) T/MM3 Baso # (Auto) 0.0 (0-0.2) T/MM3 Comprehensive Metabolic Panel 02/16/18 Range/Units 04:42 Sodium 148 H (134-144) MEQ/L Potassium 3.8 (3.6-5) MEQ/L Chloride 117 H (98-107) MEQ/L Carbon Dioxide 20 L (22-30) MEQ/L BUN 41.0 H (7-17) MG/DL Creatinine 2.5 H D (0.7-1.2) mg/dL Glucose 88 (65-110) MG/DL Calcium 8.4 (8.4-10.2) MG/DL Intake and Output 02/16/18 02/16/18 02/16/18 06:59 14:59 22:59 Intake Total 220 / 220 1200 / 1200 Output Total 600 / 600 400 / 400 Balance -380 / -380 800 / 800 Intake: Oral 220 / 220 1200 / 1200 Output: Urine 600 / 600 400 / 400 Other: Urine Color Yellow Yellow Urine Odor Strong # Incontinent Voids 0 Weight 172 kg Patient Weight 02/17/18 06:59 Weight 172 kg Assessment and Plan - Assessment and Plan (1) Sinus arrest Current visit: No Status: Resolved (2) Chronic kidney disease Current visit: No Status: Chronic (3) Essential (primary) hypertension Current visit: No Status: Chronic (4) Mixed hyperlipidemia Current visit: No Status: Chronic (5) Morbid obesity with BMI of 50.0-59.9, adult Current visit: No Status: Chronic (6) PAF (paroxysmal atrial fibrillation) Current visit: No Status: Acute (7) NSVT (nonsustained ventricular tachycardia) Current visit: No Status: Acute - Attestation Attestation Narrative: 02/16/18 18:09 Recommendation After examining the patient I agree with the above assessment. I am involved in the formulation of the patient's plan of care. Hospital Course Summary Disclaimer: The visit summary below is not to be considered part of the above Progress Note.
[2018-02-09] MEDS: APAP/DIPHENHYDRAMINE 500 MG/25 MG TABLET PO SCH (20:05)
[2018-02-10] MEDS: ACETAMINOPHEN 500 MG TABLET PO SCH ×2 (07:11→14:53)
[2018-02-10] MEDS: PANTOPRAZOLE 40 MG TABLET PO SCH (07:11)
[2018-02-10] MEDS: APIXABAN 2.5 MG TABLET PO SCH ×2 (08:41→20:22)
[2018-02-10] MEDS: AMIODARONE 200 MG TABLET PO SCH (08:42)
[2018-02-10] MEDS: ASPIRIN *EC* 81 MG TABLET PO SCH ×2 (08:42→20:22)
[2018-02-10] MEDS: SENNA + DOCUSATE TABLET PO SCH (08:42)
[2018-02-10] MEDS: POLYETHYL GLYCOL 3350 17gm PACKET PO SCH (08:48)
--- NOTE | 2018-02-10 10:32 | IRU Progress Note ---
- Subjective/Serverity of Illness Date: 02/10/18 Sully states that she had a good night. She is cooperative with therapy. Her desire to perform personal ADLs is limited because her assists her with that. We are encouraging her to do that for herself however. The patient continues to have some dyspnea and easy fatigability but overall is cooperative with therapy. She denies any chest pains. Her bowels are improved and her less diarrhea like. I reviewed the KUB demonstrating a lot of gas filled loops, likely consistent with ileus. Patient will be advised of the results of the KUB. She is now on MiraLAX and the lens as has been held. Her appetite remains good. There is no nausea no vomiting. We did review the telemetry strips revealing the presence of normal sinus mechanism. There were some wide complex beats but not overt ventricular tachycardia. She has been followed by cardiology yesterday as well. Exam Vital Signs: Temperature 98.0 F 02/10/18 08:00 Pulse Rate 67 02/10/18 08:00 Respiratory Rate 18 02/10/18 08:00 Blood Pressure 137/62 02/10/18 08:00 Pulse Oximetry 92 02/10/18 08:00 Height/Weight/BMI: Height 1.7 m Weight 171 kg - Constitutional Present: no acute distress, well nourished, well developed, morbidly obese, cooperative - Routine HEENT Exam Head: Present: normocephalic, atraumatic Eye: Present: EOMI ENT: Present: mucous membranes moist, oropharynx clear - Routine Neck Exam Present: supple - Routine Respiratory Exam Present: dyspnea, decreased breath sounds, CTA bilaterally. Absent: wheezes - Routine Cardiovascular Exam Present: RRR, S1, S2, murmur Comments: Telemetry reviewed personally and reveals normal sinus mechanism with only occasional wide complex beats. - Routine Abdominal Exam Present: soft, normoactive bowel sounds, non distended. Absent: tenderness - Routine Extremities Exam Present: edema (legs are wrapped), normal capillary refill - Routine Skin Exam Present: dry, warm - Routine Neurological Exam Present: alert, oriented X3, CN II-XII intact - Routine Psychiatric Exam Present: normal affect, normal thought process, cooperative, good insight, good judgment Results IRU - Labs Labs: Have reviewed laboratory findings with stable creatinine at 3.5. Her weight is down 1 kg. Vital signs reviewed as well as other chart notes.Reviewed KUB. IRU A/P (1) Acute on chronic respiratory failure with hypoxemia Current visit: Yes Status: Resolved This appears to have resolved at the present time. (2) Acute on chronic kidney failure Qualifiers: Acute renal failure type: unspecified Chronic kidney disease stage: stage 4 (severe) Qualified Code(s): N17.9 - Acute kidney failure, unspecified; N18.4 - Chronic kidney disease, stage 4 (severe) Current visit: Yes Status: Acute Monitoring of creatinine reveals stable findings at 3.5. Her weight is down 1 kg. (3) Diastolic CHF, acute on chronic Current visit: Yes Status: Acute (4) PAF (paroxysmal atrial fibrillation) Current visit: No Status: Acute Telemetry reveals normal sinus mechanism. Beta jeramy changed from atenolol to metoprolol by cardiology yesterday because of renal clearance of atenolol. Remains on Eliquis without evidence of overt bleeding. DVT Prophylaxis: Eliquis Resuscitation Status: Do Not Intubate - Course Hospital Course: Tevin Rice MD: 02/05/18 14:57 Patient is cooperating with physical therapy. Is making an effort to increase her stamina. Pain is controlled and we will reevaluate tomorrow. Medical issues being managed including acute on chronic kidney injury. Continue with physical therapy and occupational therapy support. 02/09/18 10:48 Medically complex. Easily fatigued with therapy. Lasix on hold. Received IV fluids over the weekend. CT scan showed ileus. 02/10/18 10:33 Changed from atenolol to metoprolol yesterday by cardiology. Review of KUB demonstrates gas filled loops likely consistent with ileus. Remains off supplemental oxygen. Easy fatigability persists but improved. - Interventions to Obtain Goals PT Treatment Plan: Balance/Proprioception, Functional Activities, Gait Training , Patient/Family Education, Therapeutic Exercise OT Treatment Plan: ADL (Basic Care), Balance Training, Pt./Family Education, Ther. Exercise for ADL Goals Progress/Modifications: Reviewed KUB. Her bowels have slowed a bit she states. She will be advised of findings of KUB demonstrating gas-filled loops of intestines. No evidence of obstruction at present. She is eating adequately. Her exercise tolerance is improved. She remains in sinus mechanism and on Eliquis. Creatinine remains stable although weight down 1 kg. Patient continues to be a difficult medical management issue with regard to fluid balance and renal function. Patient encouraged to perform ADLs despite the fact that her will assist her with this.
[2018-02-10] MEDS: HYDROCODONE/APAP 5mg/325mg TABLET PO PRN ×2 (12:08→22:08)
--- NOTE | 2018-02-10 15:44 | Cardiology Progress Note ---
<Montse Valenzuela M - Last Filed: 02/10/18 15:40> Subjective Principal diagnosis: NSVT, A Fib Interval history: Sully is seen in follow up for arrhythmias, including sinus pause, PAF and NSVT. She is examined in her room where she is in her bed with c-pap in place. She is able to converse in no distress. She denies chest pain, pressure, palpitations, dyspnea. Exam Vital signs: Temperature 97.2 F 02/10/18 15:39 Pulse Rate 67 02/10/18 15:39 Respiratory Rate 18 02/10/18 15:39 Blood Pressure 136/61 02/10/18 15:39 Pulse Oximetry 92 02/10/18 15:39 Inpatient Medications: Generic Name Dose Route Start Last Admin Trade Name Freq PRN Reason Stop Dose Admin Acetaminophen 1,000 mg 02/04/18 07:00 02/10/18 14:53 Tylenol PO Not Given [id number] MYNOR Acetaminophen/Diphenhydramine HCl 2 tab 02/03/18 21:00 02/09/18 20:05 Tylenol Pm PO 2 tab HS MYNOR Administration Hydrocodone Bitart/Acetaminophen 1 tab 02/03/18 14:41 02/10/18 12:08 [place] 5/325 PO 1 tab Q4H PRN Administration Pain Amiodarone HCl 200 mg 02/09/18 09:00 02/10/18 08:42 Pacerone PO 200 mg DAILY MYNOR Administration Apixaban 2.5 mg 02/03/18 21:00 02/10/18 08:41 Eliquis PO 2.5 mg BID MYNOR Administration Aspirin 162 mg 02/03/18 21:00 02/10/18 08:42 Ecotrin PO 162 mg BID MYNOR Administration Cholecalciferol 1,000 unit 02/04/18 09:00 02/10/18 08:41 Vit. D-3 PO 1,000 unit DAILY MYNOR Administration Furosemide 40 mg 02/04/18 09:00 02/05/18 08:20 Lasix 40 Mg Tab PO 40 mg DAILY MYNOR Administration Linaclotide 145 mcg 02/04/18 07:30 02/08/18 07:00 Linzess PO 145 mcg 0730 MYNOR Administration Magnesium Hydroxide 30 ml 02/04/18 12:23 Mom PO DAILY PRN Constipation Metoprolol Tartrate 50 mg 02/10/18 08:00 02/10/18 08:41 Lopressor PO 50 mg BIDWM MYNOR Administration Nifedipine 30 mg 02/07/18 09:00 02/10/18 08:42 Procardia Xl PO 30 mg DAILY MYNOR Administration Nystatin 1 applic 02/09/18 15:00 02/10/18 11:24 Mycostatin TP 1 applic TID MYNOR Administration Ondansetron HCl 4 mg 02/03/18 14:41 02/08/18 00:33 Zofran IVP 4 mg Q4H PRN Administration Nausea &/or vomiting Pantoprazole Sodium 40 mg 02/07/18 08:56 02/10/18 07:11 Protonix Tab PO 40 mg ACB MYNOR Administration Polyethylene Glycol 17 gm 02/09/18 09:00 02/10/18 08:48 Miralax PO 17 gm DAILY MYNOR Administration Prochlorperazine 10 mg 02/07/18 15:52 Compazine PO TID PRN Senna/Docusate Sodium 1 tab 02/03/18 14:41 Senna Plus Tablet PO BID PRN Constipation Senna/Docusate Sodium 2 tab 02/09/18 09:00 02/10/18 08:42 Senna Plus Tablet PO 2 tab DAILY MYNOR Administration Simethicone 80 mg 02/08/18 14:29 02/08/18 15:01 Mylicon PO 80 mg Q2H PRN Administration Gas Sodium Chloride 10 - 80 ml 02/03/18 14:41 02/09/18 08:34 Iv Flush IVF 10 ml PRN PRN Administration Flushing Trolamine Salicylate 1 applic 02/03/18 14:41 Aspercreme TOP PRN PRN Discontinued Medications Generic Name Dose Route Start Last Admin Trade Name Freq PRN Reason Stop Dose Admin Acetaminophen 500 mg 02/09/18 10:14 02/09/18 10:27 Tylenol PO 02/09/18 10:15 500 mg NOW ONE Administration Amiodarone HCl 400 mg 02/03/18 21:00 02/08/18 22:33 Pacerone PO 02/08/18 21:00 400 mg BID MYNOR Administration Atenolol 50 mg 02/03/18 21:00 02/03/18 20:45 Tenormin PO 50 mg BID MYNOR Administration Atenolol 25 mg 02/04/18 21:00 02/09/18 08:34 Tenormin PO 25 mg BID MYNOR Administration Diphenhydramine HCl 25 mg 02/06/18 12:56 02/06/18 13:13 Benadryl IVP 02/06/18 12:57 25 mg O ONE Administration Sodium Chloride 500 mls @ 150 mls/hr 02/05/18 12:08 02/05/18 16:45 Normal Saline IV 02/05/18 15:27 Infused .Q3H20M ONE Infusion Sodium Chloride 500 mls @ 250 mls/hr 02/06/18 10:00 02/06/18 13:15 Normal Saline IV 02/06/18 11:59 Infused .Q2H MYNOR Infusion Sodium Chloride 1,000 mls @ 75 mls/hr 02/06/18 16:00 02/07/18 20:25 Normal Saline IV Not Given .[id number] MYNOR Nifedipine 60 mg 02/04/18 09:00 02/05/18 08:20 Procardia Xl PO 60 mg DAILY MYNOR Administration Pharmacy Consult 1 each 02/03/18 14:41 Pharmacy Consult - Fall Risk [facility] 02/03/18 14:42 ONE TIME ONE Pneumococcal 7-Valent Conj Vacc 0.5 ml 02/04/18 18:36 02/04/18 20:41 Prevnar 13 IM 02/04/18 18:37 0.5 ml .ONCE ONE Administration Polyethylene Glycol 17 gm 02/04/18 09:00 Miralax PO DAILY MYNOR Polyethylene Glycol 17 gm 02/03/18 15:15 Miralax PO DAILY PRN Constipation Prochlorperazine 10 mg 02/06/18 09:00 02/07/18 15:20 Compazine PO 10 mg TID MYNOR Administration Promethazine HCl 25 mg 02/06/18 11:29 02/06/18 11:38 Phenergan Inj IM 25 mg Q6H PRN Administration - Constitutional no acute distress, morbidly obese, cooperative - Routine HEENT Exam Head: Present: normocephalic ENT: Present: mucous membranes dry - Routine Neck Exam Absent: JVD, carotid bruit - Routine Chest/Breast/Axilla Exam Chest wall: Absent: tenderness - Routine Respiratory Exam Present: decreased breath sounds, CTA bilaterally - Routine Cardiovascular Exam Present: RRR, no murmur - Routine Abdominal Exam Present: soft, non tender - Routine Extremities Exam Present: edema - Routine Skin Exam Present: intact, dry, warm - Routine Neurological Exam Present: alert, oriented X3 - Routine Psychiatric Exam Present: normal affect, normal thought process Results 02/09/18 04:16 02/10/18 04:15 Comprehensive Metabolic Panel 02/10/18 Range/Units 04:15 Sodium 145 H (134-144) MEQ/L Potassium 3.9 (3.6-5) MEQ/L Chloride 111 H (98-107) MEQ/L Carbon Dioxide 21 L (22-30) MEQ/L BUN 59.0 H* (7-17) MG/DL Creatinine 3.5 H (0.7-1.2) mg/dL Glucose 93 (65-110) MG/DL Calcium 8.2 L (8.4-10.2) MG/DL Intake and Output 02/10/18 02/10/18 02/10/18 06:59 14:59 22:59 Intake Total 357 / 357 Balance 357 / 357 Intake: Oral 357 / 357 Other: Urine Color Yellow # Voids 2 # Bowel Movements 1 Weight 370 lb 6.025 oz Patient Weight 02/11/18 06:59 Weight 370 lb 6.025 oz - Imaging and Cardiology Imaging & Cardiology Narrative: Date of Exam: 02/09/18 Ordering Provider: Aishwarya Smith APRN Type of Exam(s): XR KUB Reason for Exam(s): Ileus EXAM: XR KUB DICTATION LOCATION: [place] INDICATION: Ileus COMPARISON STUDY: None available. FINDINGS: Abdomen: Gas distended bowel loops are demonstrated throughout the abdomen suggestive of a ileus and appears to be fairly similar when compared to the prior CT scan three days earlier predominantly involving the colon. No free intraperitoneal air is identified. No abnormal radiopacities overlying the abdomen. The lung bases are clear. Skeletal Structures: The visualized skeletal structures are within normal limits. IMPRESSION: 1. Gas distended bowel loops again noted similar to the previous study and likely reflect underlying ileus. 02/10/18 15:42 Assessment and Plan - Assessment and Plan (1) PAF (paroxysmal atrial fibrillation) Current visit: No Status: Acute (2) Sinus arrest Current visit: No Status: Resolved (3) Essential (primary) hypertension Current visit: No Status: Chronic (4) Mixed hyperlipidemia Current visit: No Status: Chronic (5) Chronic kidney disease Current visit: No Status: Chronic (6) Morbid obesity with BMI of 50.0-59.9, adult Current visit: No Status: Chronic (7) NSVT (nonsustained ventricular tachycardia) Current visit: No Status: Acute - Assessment and Plan 02/04/18 Sinus Arrest Pauses resolved - Received Atenolol 50mg last evening, no pauses noted on telemetry - Will resume low dose BB this evening and watch telemetry for pauses NSVT: Continue Amiodarone 400mg BID for 1 week then 200mg daily - Not a candidate for LHC due to CKD and elevated BUN/SCr - EKG now - monitor cardiac telemetry PAF: Continue Eliquis 2.5mg BID for stroke prevention - Continue to monitor cardiac telemetry - HGB/ platelets stable HTN: Continue Nifedipine 60mg daily CKD:BUN 52/ Scr 2.9 - Seen by - Does not want hemodialysis. Diastolic CHF Mixed hyperlipidemia Morbid obesity with BMI of 50.0-59.9, adult 02/05/18 Hold Atenolol for now as patient is not comfortable taking it. - Continue to monitor telemetry for VTach/ AFib 02/06/18 No further dysrhythmias on tele, continue to monitor. CT abd/pelvis per attending 02/09/18 Stop Atenolol as cleared by renal - Start Metoprolol 50mg po BID - continue to monitor telemetry 02/10/18 Tele: SR, HR 62 BUN/SCr 59/3.5, NA 145 on Lasix 40mg po daily No change to POC today, continue to monitor Telemetry for pauses, Vtach or AFib Hospital Course Summary Disclaimer: The visit summary below is not to be considered part of the above Progress Note. Hospital Course: 02/05/18 BUN up to 60 and creatinine increased to 3.6. Lasix put on hold though she already received it this am. The hospitalist staff determined her dry weight to be around 169 kg; this am she was 167. Will give NS 500 mL bolus. Recheck BMP in am. Breathing stable on room air today - yesterday dropped briefly into the 80s. Tele - sinus. Continue amiodarone/Eliquis/BB per cardiology. 02/07 Slight improvement in renal function with BUN of 63 and creatinine of 3.6. Discussed with Dr. Clarke: continue IVF and continue to hold Lasix. Weight is trending up but pt denies dyspnea. Will make compazine PRN instead of scheduled since nausea has resolved. Plan: 02/08/18 Patient continues to report some abdominal discomfort and distention. Possible mild ileus on CT done earlier in the week. Will repeat KUB in AM. May need to add Dulcolax AK if persists. Home BIpap may be contributing to excess air in GI system. CT reviewed- no overt constipation. HR is controlled on Amiodarone. SCR mildly decreased with IVF. Will hold off on further due to recurrent issues with fluid overload. HGB is trending down a little- monitor closely. Plan repeat labs in AM for reassessment. <Spencer Johnson - Last Filed: 02/18/18 08:19> Exam Vital signs: Temperature 98.0 F 02/17/18 20:44 Pulse Rate 70 02/17/18 20:44 Respiratory Rate 16 02/17/18 20:44 Blood Pressure 144/65 H 02/17/18 20:44 Pulse Oximetry 93 02/17/18 20:44 Inpatient Medications: Generic Name Dose Route Start Last Admin Trade Name Freq PRN Reason Stop Dose Admin Acetaminophen 1,000 mg 02/04/18 07:00 02/17/18 15:16 Tylenol PO 1,000 mg [id number] MYNOR Administration Acetaminophen/Diphenhydramine HCl 2 tab 02/03/18 21:00 02/17/18 21:30 Tylenol Pm PO 2 tab HS MYNOR Administration Hydrocodone Bitart/Acetaminophen 1 tab 02/03/18 14:41 02/18/18 01:24 [place] 5/325 PO 1 tab Q4H PRN Administration Pain Amiodarone HCl 200 mg 02/09/18 09:00 02/17/18 08:30 Pacerone PO 200 mg DAILY MYNOR Administration Apixaban 2.5 mg 02/03/18 21:00 02/17/18 21:31 Eliquis PO 2.5 mg BID MYNOR Administration Cholecalciferol 1,000 unit 02/04/18 09:00 02/17/18 08:31 Vit. D-3 PO 1,000 unit DAILY MYNOR Administration Furosemide 40 mg 02/04/18 09:00 02/05/18 08:20 Lasix 40 Mg Tab PO 40 mg DAILY MYNOR Administration Furosemide 20 mg 02/17/18 13:30 02/17/18 14:42 Lasix 20 Mg Tab PO 20 mg DAILY MYNOR Administration Linaclotide 145 mcg 02/04/18 07:30 02/08/18 07:00 Linzess PO 145 mcg 0730 MYNOR Administration Magnesium Hydroxide 30 ml 02/04/18 12:23 Mom PO DAILY PRN Constipation Metoprolol Tartrate 50 mg 02/10/18 08:00 02/17/18 17:27 Lopressor PO 50 mg BIDWM MYNOR Administration Nifedipine 60 mg 02/17/18 09:00 02/17/18 08:34 Procardia Xl PO 60 mg DAILY MYNOR Administration Nystatin 1 applic 02/09/18 15:00 02/17/18 20:33 Mycostatin TP 1 applic TID MYNOR Administration Ondansetron HCl 4 mg 02/03/18 14:41 02/08/18 00:33 Zofran IVP 4 mg Q4H PRN Administration Nausea &/or vomiting Pantoprazole Sodium 40 mg 02/07/18 08:56 02/18/18 05:50 Protonix Tab PO Not Given ACB MYNOR Polyethylene Glycol 17 gm 02/09/18 09:00 02/17/18 08:34 Miralax PO 17 gm DAILY [facility] Administration Potassium Chloride 10 meq 02/18/18 08:00 Micro-K 10 Meq Capsule PO WB [facility] Prochlorperazine 5 mg 02/16/18 12:35 Compazine PO TID PRN Senna/Docusate Sodium 1 tab 02/03/18 14:41 Senna Plus Tablet PO BID PRN Constipation Senna/Docusate Sodium 2 tab 02/09/18 09:00 02/17/18 08:34 Senna Plus Tablet PO 2 tab DAILY MYNOR Administration Simethicone 80 mg 02/08/18 14:29 02/18/18 02:22 Mylicon PO 80 mg Q2H PRN Administration Gas Sodium Chloride 10 - 80 ml 02/03/18 14:41 02/13/18 17:42 Iv Flush IVF 10 ml PRN PRN Administration Flushing Trolamine Salicylate 1 applic 02/03/18 14:41 02/17/18 15:11 Aspercreme TOP 1 applic PRN PRN Administration Discontinued Medications Generic Name Dose Route Start Last Admin Trade Name Freq PRN Reason Stop Dose Admin Acetaminophen 500 mg 02/09/18 10:14 02/09/18 10:27 Tylenol PO 02/09/18 10:15 500 mg NOW ONE Administration Amiodarone HCl 400 mg 02/03/18 21:00 02/08/18 22:33 Pacerone PO 02/08/18 21:00 400 mg BID MYNOR Administration Aspirin 162 mg 02/03/18 21:00 02/11/18 08:29 Ecotrin PO 162 mg BID MYNOR Administration Atenolol 50 mg 02/03/18 21:00 02/03/18 20:45 Tenormin PO 50 mg BID MYNOR Administration Atenolol 25 mg 02/04/18 21:00 02/09/18 08:34 Tenormin PO 25 mg BID MYNOR Administration Diphenhydramine HCl 25 mg 02/06/18 12:56 02/06/18 13:13 Benadryl IVP 02/06/18 12:57 25 mg O ONE Administration Sodium Chloride 500 mls @ 150 mls/hr 02/05/18 12:08 02/05/18 16:45 Normal Saline IV 02/05/18 15:27 Infused .Q3H20M ONE Infusion Sodium Chloride 500 mls @ 250 mls/hr 02/06/18 10:00 02/06/18 13:15 Normal Saline IV 02/06/18 11:59 Infused .Q2H MYNOR Infusion Sodium Chloride 1,000 mls @ 75 mls/hr 02/06/18 16:00 02/07/18 20:25 Normal Saline IV Not Given .[id number] MYNOR Nifedipine 60 mg 02/04/18 09:00 02/05/18 08:20 Procardia Xl PO 60 mg DAILY MYNOR Administration Nifedipine 30 mg 02/07/18 09:00 02/16/18 08:35 Procardia Xl PO 30 mg DAILY MYNOR Administration Pharmacy Consult 1 each 02/03/18 14:41 Pharmacy Consult - Fall Risk [facility] 02/03/18 14:42 ONE TIME ONE Pneumococcal 7-Valent Conj Vacc 0.5 ml 02/04/18 18:36 02/04/18 20:41 Prevnar 13 IM 02/04/18 18:37 0.5 ml .ONCE ONE Administration Polyethylene Glycol 17 gm 02/04/18 09:00 Miralax PO DAILY MYNOR Polyethylene Glycol 17 gm 02/03/18 15:15 Miralax PO DAILY PRN Constipation Potassium Chloride 10 meq 02/17/18 13:29 02/17/18 14:42 Micro-K 10 Meq Capsule PO 02/17/18 13:30 10 meq O ONE Administration Prochlorperazine 10 mg 02/06/18 09:00 02/07/18 15:20 Compazine PO 10 mg TID MYNOR Administration Prochlorperazine 10 mg 02/07/18 15:52 Compazine PO TID PRN Prochlorperazine 10 mg 02/11/18 15:00 02/16/18 08:35 Compazine PO 10 mg TID MYNOR Administration Promethazine HCl 25 mg 02/06/18 11:29 02/06/18 11:38 Phenergan Inj IM 25 mg Q6H PRN Administration Results 02/16/18 04:42 02/18/18 04:52 Comprehensive Metabolic Panel 02/18/18 Range/Units 04:52 Sodium 147 H (134-144) MEQ/L Potassium 3.7 (3.6-5) MEQ/L Chloride 115 H (98-107) MEQ/L Carbon Dioxide 21 L (22-30) MEQ/L BUN 40.0 H (7-17) MG/DL Creatinine 2.6 H (0.7-1.2) mg/dL Glucose 93 (65-110) MG/DL Calcium 8.5 (8.4-10.2) MG/DL Intake and Output 02/17/18 02/18/18 02/18/18 22:59 06:59 14:59 Intake Total 200 / 200 350 / 350 Output Total 700 / 700 Balance 200 / 200 -350 / -350 Intake: Oral 200 / 200 350 / 350 Output: Urine 700 / 700 Other: Urine Color Yellow Yellow Urine Odor Normal Stool Color Brown Stool Consistency Watery Size of Bowel Movement Small # Voids 1 1 # Incontinent Voids 1 # Bowel Movements 1 Assessment and Plan - Assessment and Plan (1) Sinus arrest Current visit: No Status: Resolved (2) Chronic kidney disease Current visit: No Status: Chronic (3) Essential (primary) hypertension Current visit: No Status: Chronic (4) Mixed hyperlipidemia Current visit: No Status: Chronic (5) Morbid obesity with BMI of 50.0-59.9, adult Current visit: No Status: Chronic (6) PAF (paroxysmal atrial fibrillation) Current visit: No Status: Acute (7) NSVT (nonsustained ventricular tachycardia) Current visit: No Status: Acute - Attestation Attestation Narrative: 02/18/18 08:19 Recommendation After examining the patient I agree with the above assessment. I am involved in the formulation of the patient's plan of care. Hospital Course Summary Disclaimer: The visit summary below is not to be considered part of the above Progress Note.
[2018-02-10] MEDS: APAP/DIPHENHYDRAMINE 500 MG/25 MG TABLET PO SCH (20:21)
[2018-02-10] MEDS: SALINE FLUSH 10ml SYRINGE IVF PRN (20:22)
[2018-02-11] MEDS: PANTOPRAZOLE 40 MG TABLET PO SCH (05:32)
[2018-02-11] MEDS: ACETAMINOPHEN 500 MG TABLET PO SCH ×3 (05:33→14:13)
[2018-02-11] MEDS: APIXABAN 2.5 MG TABLET PO SCH ×2 (08:28→20:51)
[2018-02-11] MEDS: ASPIRIN *EC* 81 MG TABLET PO SCH (08:29)
[2018-02-11] MEDS: AMIODARONE 200 MG TABLET PO SCH (08:29)
[2018-02-11] MEDS: POLYETHYL GLYCOL 3350 17gm PACKET PO SCH (08:29)
[2018-02-11] MEDS: SENNA + DOCUSATE TABLET PO SCH (08:31)
[2018-02-11] MEDS: SALINE FLUSH 10ml SYRINGE IVF PRN (08:32)
--- NOTE | 2018-02-11 09:49 | IRU Progress Note ---
- Subjective/Serverity of Illness Date: 02/11/18 Sully states that she is discouraged because she has not made adequate progress. She thought she would be up walking by this time. However energy level is poor. She reports generalized "weakness." This is preventing her from being able to get up and about. She is on oxygen at nighttime which is her baseline pattern. She has not required it during the daytime. She does have some edema in the left lower extremity although this is minimal. I do not really see edema much on either side however. Her weight is down 3 kg. She is on Lasix 40 mg daily. She reports that her stools are chronically loose. There are back to her baseline and she is doing better with MiraLAX versus Linzess. Exam Vital Signs: Temperature 97.9 F 02/11/18 08:00 Pulse Rate 67 02/11/18 08:00 Respiratory Rate 20 02/11/18 08:00 Blood Pressure 143/61 H 02/11/18 08:00 Pulse Oximetry 91 02/11/18 08:00 Height/Weight/BMI: Height 1.7 m Weight 168 kg - Constitutional Present: well nourished, well developed, morbidly obese, cooperative - Routine HEENT Exam Head: Present: normocephalic Eye: Present: EOMI ENT: Present: mucous membranes moist, oropharynx clear - Routine Respiratory Exam Present: CTA bilaterally. Absent: wheezes - Routine Cardiovascular Exam Present: RRR, S1, S2. Absent: murmur - Routine Abdominal Exam Present: soft, normoactive bowel sounds, non distended. Absent: tenderness - Routine Extremities Exam Present: edema (minimal today), normal capillary refill - Routine Skin Exam Present: dry, warm - Routine Neurological Exam Present: alert, oriented X3, CN II-XII intact - Routine Psychiatric Exam Present: normal affect Results IRU - Labs Labs: I have reviewed chart data as well as other providers notes. IRU A/P (1) Acute on chronic respiratory failure with hypoxemia Current visit: Yes Status: Resolved (2) Acute on chronic kidney failure Qualifiers: Acute renal failure type: unspecified Chronic kidney disease stage: stage 4 (severe) Qualified Code(s): N17.9 - Acute kidney failure, unspecified; N18.4 - Chronic kidney disease, stage 4 (severe) Current visit: Yes Status: Acute I have ordered a repeat BMP for tomorrow. Her weight is down 3 kg. I discussed with her the importance of avoiding drinking too much fluid. (3) Diastolic CHF, acute on chronic Current visit: Yes Status: Acute (4) PAF (paroxysmal atrial fibrillation) Current visit: No Status: Acute At present she sounds as though she is in a regular rhythm. DVT Prophylaxis: Eliquis Resuscitation Status: Do Not Intubate - Course Hospital Course: Tevin Rice MD: 02/05/18 14:57 Patient is cooperating with physical therapy. Is making an effort to increase her stamina. Pain is controlled and we will reevaluate tomorrow. Medical issues being managed including acute on chronic kidney injury. Continue with physical therapy and occupational therapy support. 02/09/18 10:48 Medically complex. Easily fatigued with therapy. Lasix on hold. Received IV fluids over the weekend. CT scan showed ileus. 02/10/18 10:33 Changed from atenolol to metoprolol yesterday by cardiology. Review of KUB demonstrates gas filled loops likely consistent with ileus. Remains off supplemental oxygen. Easy fatigability persists but improved. 02/11/18 09:49 Easy fatigability. Patient discouraged because she is not walking yet. Bowels are back to baseline. Oxygen requirements are back to baseline. Weight down 3 kg. - Interventions to Obtain Goals PT Treatment Plan: Balance/Proprioception, Functional Activities, Gait Training , Patient/Family Education, Therapeutic Exercise OT Treatment Plan: ADL (Basic Care), Balance Training, Pt./Family Education, Ther. Exercise for ADL Goals Progress/Modifications: Patient's weight is down 3 kg. She is on Lasix 40 mg daily. Her lungs sound clear. We will reassess blood work tomorrow with a BMP. She is discouraged regarding progress. However she is making progress at present. She is limited by easy fatigability.I encouraged her to keep trying.
[2018-02-11] MEDS: HYDROCODONE/APAP 5mg/325mg TABLET PO PRN ×2 (12:44→23:55)
--- NOTE | 2018-02-11 13:45 | Cardiology Progress Note ---
<Montse Valenzuela M - Last Filed: 02/13/18 15:50> Subjective Principal diagnosis: NSVT, A Fib Interval history: Sully is seen in follow up for arrhythmias, including sinus pause, PAF and NSVT. She is examined in her room where she is in her bed She denies chest pain , pressure, palpitations, dyspnea. Exam Vital signs: Temperature 97.9 F 02/11/18 08:00 Pulse Rate 67 02/11/18 08:00 Respiratory Rate 20 02/11/18 08:00 Blood Pressure 143/61 H 02/11/18 08:00 Pulse Oximetry 91 02/11/18 08:00 Inpatient Medications: Generic Name Dose Route Start Last Admin Trade Name Freq PRN Reason Stop Dose Admin Acetaminophen 1,000 mg 02/04/18 07:00 02/11/18 08:29 Tylenol PO 1,000 mg [id number] MYNOR Administration Acetaminophen/Diphenhydramine HCl 2 tab 02/03/18 21:00 02/10/18 20:21 Tylenol Pm PO 2 tab HS MYNOR Administration Hydrocodone Bitart/Acetaminophen 1 tab 02/03/18 14:41 02/11/18 12:44 Prescott 5/325 PO 1 tab Q4H PRN Administration Pain Amiodarone HCl 200 mg 02/09/18 09:00 02/11/18 08:29 Pacerone PO 200 mg DAILY MYNOR Administration Apixaban 2.5 mg 02/03/18 21:00 02/11/18 08:28 Eliquis PO 2.5 mg BID MYNOR Administration Cholecalciferol 1,000 unit 02/04/18 09:00 02/11/18 08:29 Vit. D-3 PO 1,000 unit DAILY MYNOR Administration Furosemide 40 mg 02/04/18 09:00 02/05/18 08:20 Lasix 40 Mg Tab PO 40 mg DAILY MYNOR Administration Linaclotide 145 mcg 02/04/18 07:30 02/08/18 07:00 Linzess PO 145 mcg 0730 MYNOR Administration Magnesium Hydroxide 30 ml 02/04/18 12:23 Mom PO DAILY PRN Constipation Metoprolol Tartrate 50 mg 02/10/18 08:00 02/11/18 08:29 Lopressor PO 50 mg BIDWM MYNOR Administration Nifedipine 30 mg 02/07/18 09:00 02/11/18 08:29 Procardia Xl PO 30 mg DAILY MYNOR Administration Nystatin 1 applic 02/09/18 15:00 02/11/18 09:00 Mycostatin TP 1 applic TID MYNOR Administration Ondansetron HCl 4 mg 02/03/18 14:41 02/08/18 00:33 Zofran IVP 4 mg Q4H PRN Administration Nausea &/or vomiting Pantoprazole Sodium 40 mg 02/07/18 08:56 02/11/18 05:32 Protonix Tab PO 40 mg ACB MYNOR Administration Polyethylene Glycol 17 gm 02/09/18 09:00 02/11/18 08:29 Miralax PO 17 gm DAILY MYNOR Administration Prochlorperazine 10 mg 02/07/18 15:52 Compazine PO TID PRN Senna/Docusate Sodium 1 tab 02/03/18 14:41 Senna Plus Tablet PO BID PRN Constipation Senna/Docusate Sodium 2 tab 02/09/18 09:00 02/11/18 08:31 Senna Plus Tablet PO 2 tab DAILY MYNOR Administration Simethicone 80 mg 02/08/18 14:29 02/08/18 15:01 Mylicon PO 80 mg Q2H PRN Administration Gas Sodium Chloride 10 - 80 ml 02/03/18 14:41 02/11/18 08:32 Iv Flush IVF 10 ml PRN PRN Administration Flushing Trolamine Salicylate 1 applic 02/03/18 14:41 Aspercreme TOP PRN PRN Discontinued Medications Generic Name Dose Route Start Last Admin Trade Name Freq PRN Reason Stop Dose Admin Acetaminophen 500 mg 02/09/18 10:14 02/09/18 10:27 Tylenol PO 02/09/18 10:15 500 mg NOW ONE Administration Amiodarone HCl 400 mg 02/03/18 21:00 02/08/18 22:33 Pacerone PO 02/08/18 21:00 400 mg BID MYNOR Administration Aspirin 162 mg 02/03/18 21:00 02/11/18 08:29 Ecotrin PO 162 mg BID MYNOR Administration Atenolol 50 mg 02/03/18 21:00 02/03/18 20:45 Tenormin PO 50 mg BID MYNOR Administration Atenolol 25 mg 02/04/18 21:00 02/09/18 08:34 Tenormin PO 25 mg BID MYNOR Administration Diphenhydramine HCl 25 mg 02/06/18 12:56 02/06/18 13:13 Benadryl IVP 02/06/18 12:57 25 mg O ONE Administration Sodium Chloride 500 mls @ 150 mls/hr 02/05/18 12:08 02/05/18 16:45 Normal Saline IV 02/05/18 15:27 Infused .Q3H20M ONE Infusion Sodium Chloride 500 mls @ 250 mls/hr 02/06/18 10:00 02/06/18 13:15 Normal Saline IV 02/06/18 11:59 Infused .Q2H MYNOR Infusion Sodium Chloride 1,000 mls @ 75 mls/hr 02/06/18 16:00 02/07/18 20:25 Normal Saline IV Not Given .[id number] MYNOR Nifedipine 60 mg 02/04/18 09:00 02/05/18 08:20 Procardia Xl PO 60 mg DAILY MYNOR Administration Pharmacy Consult 1 each 02/03/18 14:41 Pharmacy Consult - Fall Risk 02/03/18 14:42 ONE TIME ONE Pneumococcal 7-Valent Conj Vacc 0.5 ml 02/04/18 18:36 02/04/18 20:41 Prevnar 13 IM 02/04/18 18:37 0.5 ml .ONCE ONE Administration Polyethylene Glycol 17 gm 02/04/18 09:00 Miralax PO DAILY MYNOR Polyethylene Glycol 17 gm 02/03/18 15:15 Miralax PO DAILY PRN Constipation Prochlorperazine 10 mg 02/06/18 09:00 02/07/18 15:20 Compazine PO 10 mg TID MYNOR Administration Promethazine HCl 25 mg 02/06/18 11:29 02/06/18 11:38 Phenergan Inj IM 25 mg Q6H PRN Administration - Constitutional no acute distress, morbidly obese, cooperative - Routine HEENT Exam Head: Present: normocephalic ENT: Present: mucous membranes moist - Routine Neck Exam Absent: JVD, carotid bruit - Routine Chest/Breast/Axilla Exam Chest wall: Absent: tenderness - Routine Respiratory Exam Present: CTA bilaterally, diminished air movement - Routine Cardiovascular Exam Present: RRR, no murmur - Routine Abdominal Exam Present: soft, non tender - Routine Extremities Exam Present: no edema - Routine Skin Exam Present: intact, dry, warm - Routine Neurological Exam Present: alert, oriented X3 - Routine Psychiatric Exam Present: normal affect, normal thought process Results 02/09/18 04:16 02/10/18 04:15 Intake and Output 02/10/18 02/11/18 02/11/18 22:59 06:59 14:59 Intake Total 420 / 420 Output Total 300 / 300 250 / 250 Balance -300 / -300 170 / 170 Intake: Oral 420 / 420 Output: Urine 300 / 300 250 / 250 Other: Urine Appearance Clear Clear Clear Urine Color Straw Straw Yellow Urine Odor Normal Normal Normal Stool Color Brown Stool Consistency Liquid Normal for Patient Size of Bowel Movement Moderate # Voids 1 1 Weight 374 lb 12.573 oz Patient Weight 02/12/18 06:59 Weight 374 lb 12.573 oz Assessment and Plan - Assessment and Plan (1) PAF (paroxysmal atrial fibrillation) Current visit: No Status: Acute (2) Sinus arrest Current visit: No Status: Resolved (3) Essential (primary) hypertension Current visit: No Status: Chronic (4) Mixed hyperlipidemia Current visit: No Status: Chronic (5) Chronic kidney disease Current visit: No Status: Chronic (6) Morbid obesity with BMI of 50.0-59.9, adult Current visit: No Status: Chronic (7) NSVT (nonsustained ventricular tachycardia) Current visit: No Status: Acute - Assessment and Plan 02/04/18 Sinus Arrest Pauses resolved - Received Atenolol 50mg last evening, no pauses noted on telemetry - Will resume low dose BB this evening and watch telemetry for pauses NSVT: Continue Amiodarone 400mg BID for 1 week then 200mg daily - Not a candidate for C due to CKD and elevated BUN/SCr - EKG now - monitor cardiac telemetry PAF: Continue Eliquis 2.5mg BID for stroke prevention - Continue to monitor cardiac telemetry - HGB/ platelets stable HTN: Continue Nifedipine 60mg daily CKD:BUN 52/ Scr 2.9 - Seen by - Does not want hemodialysis. Diastolic CHF Mixed hyperlipidemia Morbid obesity with BMI of 50.0-59.9, adult 02/05/18 Hold Atenolol for now as patient is not comfortable taking it. - Continue to monitor telemetry for VTach/ AFib 02/06/18 No further dysrhythmias on tele, continue to monitor. CT abd/pelvis per attending 02/09/18 Stop Atenolol as cleared by renal - Start Metoprolol 50mg po BID - continue to monitor telemetry 02/10/18 Tele: SR, HR 62 BUN/SCr 59/3.5, NA 145 on Lasix 40mg po daily No change to POC today, continue to monitor Telemetry for pauses, Vtach or AFib 02/11/18 Short run of Ventricular beats yesterday on tele - Continue to monitor telemetry. Hospital Course Summary Disclaimer: The visit summary below is not to be considered part of the above Progress Note. Hospital Course: 02/05/18 BUN up to 60 and creatinine increased to 3.6. Lasix put on hold though she already received it this am. The hospitalist staff determined her dry weight to be around 169 kg; this am she was 167. Will give NS 500 mL bolus. Recheck BMP in am. Breathing stable on room air today - yesterday dropped briefly into the 80s. Tele - sinus. Continue amiodarone/Eliquis/BB per cardiology. 02/07 Slight improvement in renal function with BUN of 63 and creatinine of 3.6. Discussed with Dr. Clarke: continue IVF and continue to hold Lasix. Weight is trending up but pt denies dyspnea. Will make compazine PRN instead of scheduled since nausea has resolved. Plan: 02/08/18 Patient continues to report some abdominal discomfort and distention. Possible mild ileus on CT done earlier in the week. Will repeat KUB in AM. May need to add Dulcolax [place] if persists. Home BIpap may be contributing to excess air in GI system. CT reviewed- no overt constipation. HR is controlled on Amiodarone. SCR mildly decreased with IVF. Will hold off on further due to recurrent issues with fluid overload. HGB is trending down a little- monitor closely. Plan repeat labs in AM for reassessment. <Spencer Johnson - Last Filed: 02/19/18 14:03> Exam Vital signs: Temperature 97.3 F 02/19/18 08:00 Pulse Rate 71 02/19/18 08:00 Respiratory Rate 14 02/19/18 08:00 Blood Pressure 166/73 H 02/19/18 08:00 Pulse Oximetry 94 02/19/18 08:00 Inpatient Medications: Generic Name Dose Route Start Last Admin Trade Name Freq PRN Reason Stop Dose Admin Acetaminophen 1,000 mg 02/04/18 07:00 02/19/18 08:47 Tylenol PO 1,000 mg [id number] MYNOR Administration Acetaminophen/Diphenhydramine HCl 2 tab 02/03/18 21:00 02/18/18 21:04 Tylenol Pm PO 1 tab HS MYNOR Administration Hydrocodone Bitart/Acetaminophen 1 tab 02/03/18 14:41 02/19/18 12:35 [place] 5/325 PO 1 tab Q4H PRN Administration Pain Amiodarone HCl 200 mg 02/09/18 09:00 02/19/18 08:44 Pacerone PO 200 mg DAILY MYNOR Administration Apixaban 2.5 mg 02/03/18 21:00 02/19/18 08:43 Eliquis PO 2.5 mg BID MYNOR Administration Cholecalciferol 1,000 unit 02/04/18 09:00 02/19/18 08:44 Vit. D-3 PO 1,000 unit DAILY MYNOR Administration Furosemide 40 mg 02/04/18 09:00 02/05/18 08:20 Lasix 40 Mg Tab PO 40 mg DAILY MYNOR Administration Furosemide 20 mg 02/17/18 13:30 02/18/18 08:37 Lasix 20 Mg Tab PO 20 mg DAILY MYNOR Administration Linaclotide 145 mcg 02/04/18 07:30 02/08/18 07:00 Linzess PO 145 mcg 0730 MYNOR Administration Magnesium Hydroxide 30 ml 02/04/18 12:23 Mom PO DAILY PRN Constipation Metoprolol Tartrate 50 mg 02/10/18 08:00 02/19/18 08:44 Lopressor PO 50 mg BIDWM MYNOR Administration Nifedipine 60 mg 02/17/18 09:00 02/19/18 08:58 Procardia Xl PO 60 mg DAILY MYNOR Administration Nystatin 1 applic 02/09/18 15:00 02/19/18 09:11 Mycostatin TP 1 applic TID MYNOR Administration Ondansetron HCl 4 mg 02/03/18 14:41 02/08/18 00:33 Zofran IVP 4 mg Q4H PRN Administration Nausea &/or vomiting Pantoprazole Sodium 40 mg 02/07/18 08:56 02/19/18 06:33 Protonix Tab PO 40 mg ACB MYNOR Administration Polyethylene Glycol 17 gm 02/09/18 09:00 02/19/18 08:43 Miralax PO 17 gm DAILY MYNOR Administration Potassium Chloride 10 meq 02/18/18 08:00 02/19/18 08:43 Micro-K 10 Meq Capsule PO 10 meq WB MYNOR Administration Prochlorperazine 10 mg 02/18/18 18:42 Compazine PO TID PRN Senna/Docusate Sodium 1 tab 02/03/18 14:41 Senna Plus Tablet PO BID PRN Constipation Senna/Docusate Sodium 2 tab 02/09/18 09:00 02/19/18 08:44 Senna Plus Tablet PO 2 tab DAILY MYNOR Administration Simethicone 80 mg 02/08/18 14:29 02/19/18 00:04 Mylicon PO 80 mg Q2H PRN Administration Gas Sodium Chloride 10 - 80 ml 02/03/18 14:41 02/13/18 17:42 Iv Flush IVF 10 ml PRN PRN Administration Flushing Trolamine Salicylate 1 applic 02/03/18 14:41 02/17/18 15:11 Aspercreme TOP 1 applic PRN PRN Administration Discontinued Medications Generic Name Dose Route Start Last Admin Trade Name Freq PRN Reason Stop Dose Admin Acetaminophen 500 mg 02/09/18 10:14 02/09/18 10:27 Tylenol PO 02/09/18 10:15 500 mg NOW ONE Administration Amiodarone HCl 400 mg 02/03/18 21:00 02/08/18 22:33 Pacerone PO 02/08/18 21:00 400 mg BID MYNOR Administration Aspirin 162 mg 02/03/18 21:00 02/11/18 08:29 Ecotrin PO 162 mg BID MYNOR Administration Atenolol 50 mg 02/03/18 21:00 02/03/18 20:45 Tenormin PO 50 mg BID MYNOR Administration Atenolol 25 mg 02/04/18 21:00 02/09/18 08:34 Tenormin PO 25 mg BID MYNOR Administration Diphenhydramine HCl 25 mg 02/06/18 12:56 02/06/18 13:13 Benadryl IVP 02/06/18 12:57 25 mg O ONE Administration Sodium Chloride 500 mls @ 150 mls/hr 02/05/18 12:08 02/05/18 16:45 Normal Saline IV 02/05/18 15:27 Infused .Q3H20M ONE Infusion Sodium Chloride 500 mls @ 250 mls/hr 02/06/18 10:00 02/06/18 13:15 Normal Saline IV 02/06/18 11:59 Infused .Q2H MYNOR Infusion Sodium Chloride 1,000 mls @ 75 mls/hr 02/06/18 16:00 02/07/18 20:25 Normal Saline IV Not Given .[id number] MYNOR Nifedipine 60 mg 02/04/18 09:00 02/05/18 08:20 Procardia Xl PO 60 mg DAILY MYNOR Administration Nifedipine 30 mg 02/07/18 09:00 02/16/18 08:35 Procardia Xl PO 30 mg DAILY MYNOR Administration Pharmacy Consult 1 each 02/03/18 14:41 Pharmacy Consult - Fall Risk 02/03/18 14:42 ONE TIME ONE Pneumococcal 7-Valent Conj Vacc 0.5 ml 02/04/18 18:36 02/04/18 20:41 Prevnar 13 IM 02/04/18 18:37 0.5 ml .ONCE ONE Administration Polyethylene Glycol 17 gm 02/04/18 09:00 Miralax PO DAILY MYNOR Polyethylene Glycol 17 gm 02/03/18 15:15 Miralax PO DAILY PRN Constipation Potassium Chloride 10 meq 02/17/18 13:29 02/17/18 14:42 Micro-K 10 Meq Capsule PO 02/17/18 13:30 10 meq O ONE Administration Prochlorperazine 10 mg 02/06/18 09:00 02/07/18 15:20 Compazine PO 10 mg TID MYNOR Administration Prochlorperazine 10 mg 02/07/18 15:52 Compazine PO TID PRN Prochlorperazine 10 mg 02/11/18 15:00 02/16/18 08:35 Compazine PO 10 mg TID MYNOR Administration Prochlorperazine 5 mg 02/16/18 12:35 Compazine PO TID PRN Prochlorperazine 5 mg 02/18/18 11:00 02/18/18 18:17 Compazine PO 5 mg TID PRN Administration Promethazine HCl 25 mg 02/06/18 11:29 02/06/18 11:38 Phenergan Inj IM 25 mg Q6H PRN Administration Results 02/16/18 04:42 02/19/18 04:13 Comprehensive Metabolic Panel 02/19/18 Range/Units 04:13 Sodium 148 H (134-144) MEQ/L Potassium 3.6 (3.6-5) MEQ/L Chloride 116 H (98-107) MEQ/L Carbon Dioxide 21 L (22-30) MEQ/L BUN 41.0 H (7-17) MG/DL Creatinine 2.7 H (0.7-1.2) mg/dL Glucose 97 (65-110) MG/DL Calcium 8.7 (8.4-10.2) MG/DL Intake and Output 02/18/18 02/19/18 02/19/18 22:59 06:59 14:59 Intake Total 356 / 356 358 / 358 Output Total 650 / 650 Balance 356 / 356 -650 / -650 358 / 358 Intake: Oral 356 / 356 358 / 358 Output: Urine 650 / 650 Other: Urine Appearance Clear Clear Urine Color Yellow Yellow Yellow Urine Odor Normal Normal Stool Color Brown Stool Consistency Liquid Size of Bowel Movement Moderate # Voids 1 1 # Incontinent Voids 1 # Bowel Movements 1 1 Weight 167 kg Patient Weight 02/20/18 06:59 Weight 167 kg Assessment and Plan - Assessment and Plan (1) Sinus arrest Current visit: No Status: Resolved (2) Chronic kidney disease Current visit: No Status: Chronic (3) Essential (primary) hypertension Current visit: No Status: Chronic (4) Mixed hyperlipidemia Current visit: No Status: Chronic (5) Morbid obesity with BMI of 50.0-59.9, adult Current visit: No Status: Chronic (6) PAF (paroxysmal atrial fibrillation) Current visit: No Status: Acute (7) NSVT (nonsustained ventricular tachycardia) Current visit: No Status: Acute - Attestation Attestation Narrative: 02/19/18 14:03 Recommendation After examining the patient I agree with the above assessment. I am involved in the formulation of the patient's plan of care. Hospital Course Summary Disclaimer: The visit summary below is not to be considered part of the above Progress Note.
--- NOTE | 2018-02-11 14:34 | Progress Note ---
- Date 02/11/18 Subjective: Sully was seen after transferring from the commode to wheelchair. She states that she's been more short of breath today compared to yesterday and is noticing some increased swelling in her arms, but she's not coughing like she was when she was admitted with pulmonary edema. She has also been nauseated and had a poor appetite today. She thinks all of these sx are r/t working harder with therapy. She is not using the full lift as frequently as she had been. She denies chest pain/palpitations but she reports Dr. Johnson told her she had an irreg. HR again recently. Objective Vital signs: Temperature 97.9 F 02/11/18 08:00 Pulse Rate 67 02/11/18 08:00 Respiratory Rate 20 02/11/18 08:00 Blood Pressure 143/61 H 02/11/18 08:00 Pulse Oximetry 91 02/11/18 08:00 Rhythm: Normal Sinus Rhythm Height/Weight/BMI: Height 1.7 m Weight 170 kg - Constitutional Present: no acute distress, morbidly obese - Routine HEENT Exam Head: Present: normocephalic Eye: Present: PERRL. Absent: conjunctival icterus, scleral injection - Routine Respiratory Exam Present: CTA bilaterally - Routine Cardiovascular Exam Present: RRR, S1, S2 - Routine Abdominal Exam Present: normoactive bowel sounds, non tender - Routine Extremities Exam Present: edema (both legs with miroslava wraps) - Routine Skin Exam Present: intact, dry, warm, ecchymosis (arms/hands) - Routine Neurological Exam Present: alert, oriented X3, moving all extremities, normal speech - Routine Psychiatric Exam Present: normal affect, normal thought process, cooperative Results - Labs CBC & Chem 7: 02/09/18 04:16 02/10/18 04:15 Assessment and Plan (1) Acute on chronic respiratory failure with hypoxemia Current visit: Yes Status: Resolved Assessment and Plan: Assessment: Generalized debility secondary to acute prolonged illness. Nausea - onset 02/01/18 Acute hypoxemic and hypercapnic respiratory failure with pulmonary edema. Her pulmonary edema is improved at this time but she continues to demonstrate evidence of dyspnea with activity and requires occasional oxygen supplementation. Diastolic heart failure, acute on chronic with pulmonary edema - EF 45-50%. Acute on chronic kidney injury. Morbid obesity - BMI 58. Diabetes mellitus type 2, not on long-term insulin Obstructive sleep apnea with obesity/hypoventilation syndrome on home BiPAP Chronic back pain with osteoarthritis Slow transit constipation Cardiac dysrhythmias characterized by paroxysmal atrial fibrillation and nonsustained ventricular tachycardia. Patient has now been started on amiodarone as of yesterday. Chronic kidney disease-stage IV (baseline SCr 2.5) Hypercholesterolemia Hypertension Plan: Ventricular beats on tele - cardiology monitoring. Creatinine still elevated, 3.5 yesterday. Lasix remains on hold. Weight 168 yest and 170 today; lungs clear and she's on room air. Repeat BMP in am. Ileus persists, occ. nausea. KUB reviewed. Will restart compazine at TID scheduled rather than PRN - this helped control her nausea several days ago. She 's been having liquid stools, which is typical for her. Encouraged therapy. Discussed with attending. DVT Prophylaxis: Eliquis GI Prophylaxis: Protonix Resuscitation Status: Do Not Intubate - Physician Narrative Physician: Carla Sanchez MD Narrative: Date: 02/11/18 Time: 1645 Ms. Arshad was independently interviewed and examined by me. She is currently supine in bed with her BiPAP on. She has company. She does report slight increase shortness of breath today as well as slight increase in her swelling of her legs and hands. Her lungs actually sound fairly clear. She denies chest pain or pressure. She denies any nausea or vomiting, diarrhea or constipation. She has not been getting her Lasix as prior and despite that her creatinine has failed to come down significantly. The BUN is only minimally lower than the day prior. PE: Gen: alert and oriented. NAD Skin: warm and dry HEENT: NC/AT PERRL, EOMI, Sclera, lids and conjunctiva wnl, MMM, OP clear Neck: supple. No JVD, Carotids 2+ without bruits. Lungs: clear, No rales, rhonchi, wheezes. CV: regular. No murmur, rub or gallop Abd: soft. NT/ND, +BS MS: Bilateral LEs in miroslava wraps, 2-3+ edema, Hands trace edema. Small hematoma with ecchymosis on the right dorsum of the hand. Neuro: No focal deficit Psy: normal mood and affect A/P Generalized debility secondary to acute prolonged illness. Acute hypoxemic and hypercapnic respiratory failure with pulmonary edema. Her pulmonary edema is improved at this time but she continues to demonstrate evidence of dyspnea with activity and requires occasional oxygen supplementation. Diastolic heart failure, acute on chronic with pulmonary edema - EF 45-50%. -Lasix on hold Acute on chronic kidney injury. -stage IV (baseline SCr 2.5) Morbid obesity - BMI 58. Diabetes mellitus type 2, not on long-term insulin Obstructive sleep apnea with obesity/hypoventilation syndrome on home BiPAP Chronic back pain with osteoarthritis Slow transit constipation Cardiac dysrhythmias characterized by paroxysmal atrial fibrillation and nonsustained ventricular tachycardia. -Cardiology following -Patient has now been started on amiodarone Hypercholesterolemia Hypertension -BP reasonable We will repeat lab in the morning. I have reviewed her labs, notes and imaging. I discussed the patient with Dary Kang APRN. Assessment and plan was done in conjunction with her and I agree with it as stated above. Hospital Course Summary Disclaimer: The visit summary below is not to be considered part of the above Progress Note. Hospital Course: 02/05/18 BUN up to 60 and creatinine increased to 3.6. Lasix put on hold though she already received it this am. The hospitalist staff determined her dry weight to be around 169 kg; this am she was 167. Will give NS 500 mL bolus. Recheck BMP in am. Breathing stable on room air today - yesterday dropped briefly into the 80s. Tele - sinus. Continue amiodarone/Eliquis/BB per cardiology. 02/07 Slight improvement in renal function with BUN of 63 and creatinine of 3.6. Discussed with Dr. Clarke: continue IVF and continue to hold Lasix. Weight is trending up but pt denies dyspnea. Will make compazine PRN instead of scheduled since nausea has resolved. 02/08/18 Patient continues to report some abdominal discomfort and distention. Possible mild ileus on CT done earlier in the week. Will repeat KUB in AM. May need to add Dulcolax [place] if persists. Home BIpap may be contributing to excess air in GI system. CT reviewed- no overt constipation. HR is controlled on Amiodarone. SCR mildly decreased with IVF. Will hold off on further due to recurrent issues with fluid overload. HGB is trending down a little- monitor closely. Plan repeat labs in AM for reassessment. 02/11/18 Ventricular beats on tele - cardiology monitoring. Creatinine still elevated, 3.5 yesterday. Lasix remains on hold. Weight 168 yest and 170 today; lungs clear and she's on room air. Repeat BMP in am. Ileus persists, occ. nausea. KUB reviewed. Will restart compazine at TID scheduled rather than PRN - this helped control her nausea several days ago. She 's been having liquid stools, which is typical for her.
[2018-02-11] MEDS: PROCHLORPERAZINE 10 MG TABLET PO SCH ×2 (15:01→20:52)
[2018-02-11] MEDS: APAP/DIPHENHYDRAMINE 500 MG/25 MG TABLET PO SCH (20:51)
[2018-02-12] MEDS: PANTOPRAZOLE 40 MG TABLET PO SCH (06:18)
[2018-02-12] MEDS: PROCHLORPERAZINE 10 MG TABLET PO SCH ×3 (08:17→20:45)
[2018-02-12] MEDS: APIXABAN 2.5 MG TABLET PO SCH ×2 (08:17→20:45)
[2018-02-12] MEDS: AMIODARONE 200 MG TABLET PO SCH (08:18)
[2018-02-12] MEDS: POLYETHYL GLYCOL 3350 17gm PACKET PO SCH (08:19)
[2018-02-12] MEDS: SENNA + DOCUSATE TABLET PO SCH (09:17)
[2018-02-12] MEDS: HYDROCODONE/APAP 5mg/325mg TABLET PO PRN (09:17)
[2018-02-12] MEDS: ACETAMINOPHEN 500 MG TABLET PO SCH ×2 (09:21→15:20)
[2018-02-12] MEDS: APAP/DIPHENHYDRAMINE 500 MG/25 MG TABLET PO SCH (20:45)
[2018-02-12] MEDS: SIMETHICONE 80 MG CHEWABLE TABLET PO PRN (23:30)
[2018-02-13] MEDS: PANTOPRAZOLE 40 MG TABLET PO SCH (06:07)
[2018-02-13] MEDS: ACETAMINOPHEN 500 MG TABLET PO SCH ×2 (08:19→13:29)
[2018-02-13] MEDS: SIMETHICONE 80 MG CHEWABLE TABLET PO PRN ×3 (08:20→19:19)
[2018-02-13] MEDS: SALINE FLUSH 10ml SYRINGE IVF PRN ×2 (08:46→17:42)
[2018-02-13] MEDS: POLYETHYL GLYCOL 3350 17gm PACKET PO SCH (08:46)
[2018-02-13] MEDS: APIXABAN 2.5 MG TABLET PO SCH ×2 (08:47→20:42)
[2018-02-13] MEDS: AMIODARONE 200 MG TABLET PO SCH (08:47)
[2018-02-13] MEDS: PROCHLORPERAZINE 10 MG TABLET PO SCH ×4 (08:47→20:42)
[2018-02-13] MEDS: SENNA + DOCUSATE TABLET PO SCH (08:47)
--- NOTE | 2018-02-13 11:25 | IRU Progress Note ---
- Subjective/Serverity of Illness Date: 02/13/18 Sully is progressing with therapy. She denies any shortness of breath. She would like to be on additional Lasix. Lasix continues to be held. Her creatinine is improved at 3.0. Review of her weights indicates that these are stable at the present time. She is down just slightly from previous weight but not much. She denies any chest pain. Review of telemetry strips reveals normal sinus rhythm although did have a run of ventricular beats for which she was seen by cardiology yesterday. This was apparently asymptomatic. The patient continues to have a bit of edema peripherally about 1+-2+ bilaterally. She would like to get back to walking previously and therapy is working toward that goal. I reviewed therapy notes. Continues to require total assist for transfers for the most part. Patient reports some dyspnea with activity but not as bad as when she came in. There is no chest discomfort. Exam Vital Signs: Temperature 97.5 F 02/13/18 07:37 Pulse Rate 75 02/13/18 08:00 Respiratory Rate 18 02/13/18 07:37 Blood Pressure 161/69 H 02/13/18 07:37 Pulse Oximetry 97 02/13/18 07:37 Height/Weight/BMI: Height 1.7 m Weight 169.8 kg - Constitutional Present: no acute distress, well nourished, well developed, morbidly obese, cooperative - Routine HEENT Exam Eye: Present: EOMI ENT: Present: mucous membranes moist, oropharynx clear - Routine Neck Exam Present: supple - Routine Respiratory Exam Present: decreased breath sounds, CTA bilaterally. Absent: wheezes - Routine Cardiovascular Exam Present: RRR, S1, S2. Absent: murmur - Routine Abdominal Exam Present: soft, normoactive bowel sounds, non distended. Absent: tenderness - Routine Extremities Exam Present: edema (1-2+ bilat), normal capillary refill - Routine Skin Exam Present: dry, warm - Routine Neurological Exam Present: alert, oriented X3, CN II-XII intact - Routine Psychiatric Exam Present: normal affect, normal thought process Results IRU - Labs Labs: Have reviewed laboratory results as well as other providers notes. IRU A/P (1) Acute on chronic respiratory failure with hypoxemia Current visit: Yes Status: Resolved (2) Acute on chronic kidney failure Qualifiers: Acute renal failure type: unspecified Chronic kidney disease stage: stage 4 (severe) Qualified Code(s): N17.9 - Acute kidney failure, unspecified; N18.4 - Chronic kidney disease, stage 4 (severe) Current visit: Yes Status: Acute Creatinine slightly improved to 3.0. GFR 16 by estimate. Patient would like to be back on her Lasix. She does have peripheral edema. We are also wrapping the lower extremities. (3) Diastolic CHF, acute on chronic Current visit: Yes Status: Acute Please see above discussion. Her lungs are clear at the present time. She does have evidence of dyspnea with activity however. (4) PAF (paroxysmal atrial fibrillation) Current visit: No Status: Acute Reviewed telemetry strips reveals normal sinus mechanism. Brief run of ventricular beats noted by cardiology. DVT Prophylaxis: Eliquis Resuscitation Status: Do Not Intubate - Course Hospital Course: Tevin Rice MD: 02/05/18 14:57 Patient is cooperating with physical therapy. Is making an effort to increase her stamina. Pain is controlled and we will reevaluate tomorrow. Medical issues being managed including acute on chronic kidney injury. Continue with physical therapy and occupational therapy support. 02/09/18 10:48 Medically complex. Easily fatigued with therapy. Lasix on hold. Received IV fluids over the weekend. CT scan showed ileus. 02/10/18 10:33 Changed from atenolol to metoprolol yesterday by cardiology. Review of KUB demonstrates gas filled loops likely consistent with ileus. Remains off supplemental oxygen. Easy fatigability persists but improved. 02/11/18 09:49 Easy fatigability. Patient discouraged because she is not walking yet. Bowels are back to baseline. Oxygen requirements are back to baseline. Weight down 3 kg. 02/13/18 11:27 Weight essentially stable. Lasix remains on hold. Lungs are clear with diminished breath sounds. Creatinine slightly improved at 3.0 with estimated GFR 16. - Interventions to Obtain Goals PT Treatment Plan: Balance/Proprioception, Functional Activities, Gait Training , Patient/Family Education, Therapeutic Exercise OT Treatment Plan: ADL (Basic Care), Balance Training, Pt./Family Education, Ther. Exercise for ADL Goals Progress/Modifications: Patient making slow progress with therapy. She would like to be back on Lasix. Creatinine is slightly improved at 3.0. Does have some dyspnea with activity although lungs are clear with diminished breath sounds. She would like to get back to walking again. Therapy working toward that goal. However not safe at this time.
[2018-02-13] MEDS: HYDROCODONE/APAP 5mg/325mg TABLET PO PRN ×2 (12:12→18:03)
--- NOTE | 2018-02-13 16:01 | Cardiology Progress Note ---
<Montse Valenzuela M - Last Filed: 02/16/18 15:59> Subjective Principal diagnosis: NSVT, A Fib Interval history: Sully is seen in follow up for arrhythmias, including sinus pause, PAF and NSVT. She is examined in her room where she is in her bed She denies chest pain , pressure, palpitations, dyspnea. Exam Vital signs: Temperature 97.8 F 02/13/18 15:42 Pulse Rate 73 02/13/18 15:42 Respiratory Rate 22 02/13/18 15:42 Blood Pressure 133/64 02/13/18 15:42 Pulse Oximetry 96 02/13/18 15:42 Inpatient Medications: Generic Name Dose Route Start Last Admin Trade Name Freq PRN Reason Stop Dose Admin Acetaminophen 1,000 mg 02/04/18 07:00 02/13/18 13:29 Tylenol PO Not Given [id number] MYNOR Acetaminophen/Diphenhydramine HCl 2 tab 02/03/18 21:00 02/12/18 20:45 Tylenol Pm PO 2 tab HS MYNOR Administration Hydrocodone Bitart/Acetaminophen 1 tab 02/03/18 14:41 02/13/18 12:12 Star 5/325 PO 1 tab Q4H PRN Administration Pain Amiodarone HCl 200 mg 02/09/18 09:00 02/13/18 08:47 Pacerone PO 200 mg DAILY MYNOR Administration Apixaban 2.5 mg 02/03/18 21:00 02/13/18 08:47 Eliquis PO 2.5 mg BID MYNOR Administration Cholecalciferol 1,000 unit 02/04/18 09:00 02/13/18 08:47 Vit. D-3 PO 1,000 unit DAILY MYNOR Administration Furosemide 40 mg 02/04/18 09:00 02/05/18 08:20 Lasix 40 Mg Tab PO 40 mg DAILY MYNOR Administration Linaclotide 145 mcg 02/04/18 07:30 02/08/18 07:00 Linzess PO 145 mcg 0730 MYNOR Administration Magnesium Hydroxide 30 ml 02/04/18 12:23 Mom PO DAILY PRN Constipation Metoprolol Tartrate 50 mg 02/10/18 08:00 02/13/18 08:47 Lopressor PO 50 mg BIDWM MYNOR Administration Nifedipine 30 mg 02/07/18 09:00 02/13/18 08:47 Procardia Xl PO 30 mg DAILY MYNOR Administration Nystatin 1 applic 02/09/18 15:00 02/13/18 09:45 Mycostatin TP 1 applic TID MYNOR Administration Ondansetron HCl 4 mg 02/03/18 14:41 02/08/18 00:33 Zofran IVP 4 mg Q4H PRN Administration Nausea &/or vomiting Pantoprazole Sodium 40 mg 02/07/18 08:56 02/13/18 06:07 Protonix Tab PO 40 mg ACB MYNOR Administration Polyethylene Glycol 17 gm 02/09/18 09:00 02/13/18 08:46 Miralax PO 17 gm DAILY MYNOR Administration Prochlorperazine 10 mg 02/11/18 15:00 02/13/18 15:15 Compazine PO Not Given TID MYNOR Senna/Docusate Sodium 1 tab 02/03/18 14:41 Senna Plus Tablet PO BID PRN Constipation Senna/Docusate Sodium 2 tab 02/09/18 09:00 02/13/18 08:47 Senna Plus Tablet PO 2 tab DAILY MYNOR Administration Simethicone 80 mg 02/08/18 14:29 02/13/18 13:28 Mylicon PO 80 mg Q2H PRN Administration Gas Sodium Chloride 10 - 80 ml 02/03/18 14:41 02/13/18 08:46 Iv Flush IVF 10 ml PRN PRN Administration Flushing Trolamine Salicylate 1 applic 02/03/18 14:41 Aspercreme TOP PRN PRN Discontinued Medications Generic Name Dose Route Start Last Admin Trade Name Freq PRN Reason Stop Dose Admin Acetaminophen 500 mg 02/09/18 10:14 02/09/18 10:27 Tylenol PO 02/09/18 10:15 500 mg NOW ONE Administration Amiodarone HCl 400 mg 02/03/18 21:00 02/08/18 22:33 Pacerone PO 02/08/18 21:00 400 mg BID MYNOR Administration Aspirin 162 mg 02/03/18 21:00 02/11/18 08:29 Ecotrin PO 162 mg BID MYNOR Administration Atenolol 50 mg 02/03/18 21:00 02/03/18 20:45 Tenormin PO 50 mg BID MYNOR Administration Atenolol 25 mg 02/04/18 21:00 02/09/18 08:34 Tenormin PO 25 mg BID MYNOR Administration Diphenhydramine HCl 25 mg 02/06/18 12:56 02/06/18 13:13 Benadryl IVP 02/06/18 12:57 25 mg O ONE Administration Sodium Chloride 500 mls @ 150 mls/hr 02/05/18 12:08 02/05/18 16:45 Normal Saline IV 02/05/18 15:27 Infused .Q3H20M ONE Infusion Sodium Chloride 500 mls @ 250 mls/hr 02/06/18 10:00 02/06/18 13:15 Normal Saline IV 02/06/18 11:59 Infused .Q2H MYNOR Infusion Sodium Chloride 1,000 mls @ 75 mls/hr 02/06/18 16:00 02/07/18 20:25 Normal Saline IV Not Given .[id number] MYNOR Nifedipine 60 mg 02/04/18 09:00 02/05/18 08:20 Procardia Xl PO 60 mg DAILY MYNOR Administration Pharmacy Consult 1 each 02/03/18 14:41 Pharmacy Consult - Fall Risk 02/03/18 14:42 ONE TIME ONE Pneumococcal 7-Valent Conj Vacc 0.5 ml 02/04/18 18:36 02/04/18 20:41 Prevnar 13 IM 02/04/18 18:37 0.5 ml .ONCE ONE Administration Polyethylene Glycol 17 gm 02/04/18 09:00 Miralax PO DAILY MYNOR Polyethylene Glycol 17 gm 02/03/18 15:15 Miralax PO DAILY PRN Constipation Prochlorperazine 10 mg 02/06/18 09:00 02/07/18 15:20 Compazine PO 10 mg TID MYNOR Administration Prochlorperazine 10 mg 02/07/18 15:52 Compazine PO TID PRN Promethazine HCl 25 mg 02/06/18 11:29 02/06/18 11:38 Phenergan Inj IM 25 mg Q6H PRN Administration - Constitutional no acute distress, morbidly obese, cooperative - Routine HEENT Exam Head: Present: normocephalic ENT: Present: mucous membranes moist - Routine Neck Exam Absent: JVD, carotid bruit - Routine Chest/Breast/Axilla Exam Chest wall: Absent: tenderness - Routine Respiratory Exam Present: decreased breath sounds. Absent: dyspnea - Routine Cardiovascular Exam Present: RRR, no murmur - Routine Abdominal Exam Present: soft, non tender - Routine Extremities Exam Present: no edema - Routine Skin Exam Present: intact, dry, warm - Routine Neurological Exam Present: alert, oriented X3 - Routine Psychiatric Exam Present: normal affect, normal thought process Results 02/16/18 04:42 02/16/18 04:42 Comprehensive Metabolic Panel 02/13/18 Range/Units 06:08 Sodium 147 H (134-144) MEQ/L Potassium 3.9 (3.6-5) MEQ/L Chloride 116 H (98-107) MEQ/L Carbon Dioxide 20 L (22-30) MEQ/L BUN 49.0 H (7-17) MG/DL Creatinine 3.0 H (0.7-1.2) mg/dL Glucose 89 (65-110) MG/DL Calcium 8.5 (8.4-10.2) MG/DL Intake and Output 02/13/18 02/13/18 02/13/18 06:59 14:59 22:59 Intake Total 438 / 438 Output Total 1030 / 1030 200 / 200 Balance -1030 / -1030 238 / 238 Intake: Oral 438 / 438 Output: Urine 1030 / 1030 200 / 200 Other: Urine Appearance Clear Urine Color Yellow Yellow Urine Odor Normal Normal Stool Color Brown Stool Consistency Soft Size of Bowel Movement Moderate # Bowel Movements 1 # Incontinent Bowel Movements 0 Assessment and Plan - Assessment and Plan (1) PAF (paroxysmal atrial fibrillation) Current visit: No Status: Acute (2) Sinus arrest Current visit: No Status: Resolved (3) Essential (primary) hypertension Current visit: No Status: Chronic (4) Mixed hyperlipidemia Current visit: No Status: Chronic (5) Chronic kidney disease Current visit: No Status: Chronic (6) Morbid obesity with BMI of 50.0-59.9, adult Current visit: No Status: Chronic (7) NSVT (nonsustained ventricular tachycardia) Current visit: No Status: Acute - Assessment and Plan 02/04/18 Sinus Arrest Pauses resolved - Received Atenolol 50mg last evening, no pauses noted on telemetry - Will resume low dose BB this evening and watch telemetry for pauses NSVT: Continue Amiodarone 400mg BID for 1 week then 200mg daily - Not a candidate for [facility] due to CKD and elevated BUN/SCr - EKG now - monitor cardiac telemetry PAF: Continue Eliquis 2.5mg BID for stroke prevention - Continue to monitor cardiac telemetry - HGB/ platelets stable HTN: Continue Nifedipine 60mg daily CKD:BUN 52/ Scr 2.9 - Seen by - Does not want hemodialysis. Diastolic CHF Mixed hyperlipidemia Morbid obesity with BMI of 50.0-59.9, adult 02/05/18 Hold Atenolol for now as patient is not comfortable taking it. - Continue to monitor telemetry for VTach/ AFib 02/06/18 No further dysrhythmias on tele, continue to monitor. CT abd/pelvis per attending 02/09/18 Stop Atenolol as cleared by renal - Start Metoprolol 50mg po BID - continue to monitor telemetry 02/10/18 Tele: SR, HR 62 BUN/SCr 59/3.5, NA 145 on Lasix 40mg po daily No change to POC today, continue to monitor Telemetry for pauses, Vtach or AFib 02/11/18 Short run of Ventricular beats yesterday on tele - Continue to monitor telemetry. 02/13/18 Telemetry remains SR, without pauses, AFib or NSVT BUN/ SCr 49/3.0, continues to improve. (Patient refuses hemodialysis) Hospital Course Summary Disclaimer: The visit summary below is not to be considered part of the above Progress Note. Hospital Course: 02/05/18 BUN up to 60 and creatinine increased to 3.6. Lasix put on hold though she already received it this am. The hospitalist staff determined her dry weight to be around 169 kg; this am she was 167. Will give NS 500 mL bolus. Recheck BMP in am. Breathing stable on room air today - yesterday dropped briefly into the 80s. Tele - sinus. Continue amiodarone/Eliquis/BB per cardiology. 02/07 Slight improvement in renal function with BUN of 63 and creatinine of 3.6. Discussed with Dr. Clarke: continue IVF and continue to hold Lasix. Weight is trending up but pt denies dyspnea. Will make compazine PRN instead of scheduled since nausea has resolved. Plan: 02/08/18 Patient continues to report some abdominal discomfort and distention. Possible mild ileus on CT done earlier in the week. Will repeat KUB in AM. May need to add Dulcolax [place] if persists. Home BIpap may be contributing to excess air in GI system. CT reviewed- no overt constipation. HR is controlled on Amiodarone. SCR mildly decreased with IVF. Will hold off on further due to recurrent issues with fluid overload. HGB is trending down a little- monitor closely. Plan repeat labs in AM for reassessment. <Spencer Johnson - Last Filed: 02/20/18 13:27> Exam Vital signs: Temperature 97.6 F 02/20/18 07:25 Pulse Rate 70 02/20/18 07:25 Respiratory Rate 18 02/20/18 07:25 Blood Pressure 149/70 H 02/20/18 07:25 Pulse Oximetry 94 02/20/18 07:25 Inpatient Medications: Generic Name Dose Route Start Last Admin Trade Name Freq PRN Reason Stop Dose Admin Acetaminophen 1,000 mg 02/04/18 07:00 02/20/18 08:29 Tylenol PO 1,000 mg [id number] MYNOR Administration Hydrocodone Bitart/Acetaminophen 1 tab 02/03/18 14:41 02/20/18 13:24 Star 5/325 PO 1 tab Q4H PRN Administration Pain Amiodarone HCl 200 mg 02/09/18 09:00 02/20/18 08:29 Pacerone PO 200 mg DAILY MYNOR Administration Apixaban 2.5 mg 02/03/18 21:00 02/20/18 08:29 Eliquis PO 2.5 mg BID MYNOR Administration Cholecalciferol 1,000 unit 02/04/18 09:00 02/20/18 08:28 Vit. D-3 PO 1,000 unit DAILY MYNOR Administration Diphenhydramine HCl 50 mg 02/19/18 21:00 02/19/18 21:17 Benadryl PO 50 mg HS MYNOR Administration Furosemide 40 mg 02/04/18 09:00 02/05/18 08:20 Lasix 40 Mg Tab PO 40 mg DAILY MYNOR Administration Furosemide 20 mg 02/17/18 13:30 02/18/18 08:37 Lasix 20 Mg Tab PO 20 mg DAILY MYNOR Administration Linaclotide 145 mcg 02/04/18 07:30 02/08/18 07:00 Linzess PO 145 mcg 0730 MYNOR Administration Magnesium Hydroxide 30 ml 02/04/18 12:23 Mom PO DAILY PRN Constipation Metoprolol Tartrate 50 mg 02/10/18 08:00 02/20/18 08:29 Lopressor PO 50 mg BIDWM MYNOR Administration Nifedipine 60 mg 02/17/18 09:00 02/20/18 08:28 Procardia Xl PO 60 mg DAILY MYNOR Administration Nystatin 1 applic 02/09/18 15:00 02/20/18 10:00 Mycostatin TP 1 applic TID MYNOR Administration Ondansetron HCl 4 mg 02/03/18 14:41 02/08/18 00:33 Zofran IVP 4 mg Q4H PRN Administration Nausea &/or vomiting Pantoprazole Sodium 40 mg 02/07/18 08:56 02/20/18 08:11 Protonix Tab PO Not Given ACB MYNOR Polyethylene Glycol 17 gm 02/09/18 09:00 02/20/18 08:29 Miralax PO 17 gm DAILY MYNOR Administration Potassium Chloride 10 meq 02/18/18 08:00 02/20/18 08:29 Micro-K 10 Meq Capsule PO 10 meq WB MYNOR Administration Prochlorperazine 10 mg 02/18/18 18:42 Compazine PO TID PRN Senna/Docusate Sodium 1 tab 02/03/18 14:41 Senna Plus Tablet PO BID PRN Constipation Senna/Docusate Sodium 2 tab 02/09/18 09:00 02/20/18 08:28 Senna Plus Tablet PO 2 tab DAILY MYNOR Administration Simethicone 80 mg 02/08/18 14:29 02/20/18 13:25 Mylicon PO 80 mg Q2H PRN Administration Gas Sodium Chloride 10 - 80 ml 02/03/18 14:41 02/13/18 17:42 Iv Flush IVF 10 ml PRN PRN Administration Flushing Trolamine Salicylate 1 applic 02/03/18 14:41 02/17/18 15:11 Aspercreme TOP 1 applic PRN PRN Administration Discontinued Medications Generic Name Dose Route Start Last Admin Trade Name Freq PRN Reason Stop Dose Admin Acetaminophen 500 mg 02/09/18 10:14 02/09/18 10:27 Tylenol PO 02/09/18 10:15 500 mg NOW ONE Administration Acetaminophen/Diphenhydramine HCl 2 tab 02/03/18 21:00 02/18/18 21:04 Tylenol Pm PO 1 tab HS MYNOR Administration Amiodarone HCl 400 mg 02/03/18 21:00 02/08/18 22:33 Pacerone PO 02/08/18 21:00 400 mg BID MYNOR Administration Aspirin 162 mg 02/03/18 21:00 02/11/18 08:29 Ecotrin PO 162 mg BID MYNOR Administration Atenolol 50 mg 02/03/18 21:00 02/03/18 20:45 Tenormin PO 50 mg BID MYNOR Administration Atenolol 25 mg 02/04/18 21:00 02/09/18 08:34 Tenormin PO 25 mg BID MYNOR Administration Diphenhydramine HCl 25 mg 02/06/18 12:56 02/06/18 13:13 Benadryl IVP 02/06/18 12:57 25 mg O ONE Administration Sodium Chloride 500 mls @ 150 mls/hr 02/05/18 12:08 02/05/18 16:45 Normal Saline IV 02/05/18 15:27 Infused .Q3H20M ONE Infusion Sodium Chloride 500 mls @ 250 mls/hr 02/06/18 10:00 02/06/18 13:15 Normal Saline IV 02/06/18 11:59 Infused .Q2H MYNOR Infusion Sodium Chloride 1,000 mls @ 75 mls/hr 02/06/18 16:00 02/07/18 20:25 Normal Saline IV Not Given .[id number] MYNOR Nifedipine 60 mg 02/04/18 09:00 02/05/18 08:20 Procardia Xl PO 60 mg DAILY MYNOR Administration Nifedipine 30 mg 02/07/18 09:00 02/16/18 08:35 Procardia Xl PO 30 mg DAILY MYNOR Administration Pharmacy Consult 1 each 02/03/18 14:41 Pharmacy Consult - Fall Risk 02/03/18 14:42 ONE TIME ONE Pneumococcal 7-Valent Conj Vacc 0.5 ml 02/04/18 18:36 02/04/18 20:41 Prevnar 13 IM 02/04/18 18:37 0.5 ml .ONCE ONE Administration Polyethylene Glycol 17 gm 02/04/18 09:00 Miralax PO DAILY MYNOR Polyethylene Glycol 17 gm 02/03/18 15:15 Miralax PO DAILY PRN Constipation Potassium Chloride 10 meq 02/17/18 13:29 02/17/18 14:42 Micro-K 10 Meq Capsule PO 02/17/18 13:30 10 meq O ONE Administration Prochlorperazine 10 mg 02/06/18 09:00 02/07/18 15:20 Compazine PO 10 mg TID MYNOR Administration Prochlorperazine 10 mg 02/07/18 15:52 Compazine PO TID PRN Prochlorperazine 10 mg 02/11/18 15:00 02/16/18 08:35 Compazine PO 10 mg TID MYNOR Administration Prochlorperazine 5 mg 02/16/18 12:35 Compazine PO TID PRN Prochlorperazine 5 mg 02/18/18 11:00 02/18/18 18:17 Compazine PO 5 mg TID PRN Administration Promethazine HCl 25 mg 02/06/18 11:29 02/06/18 11:38 Phenergan Inj IM 25 mg Q6H PRN Administration Results 02/16/18 04:42 02/20/18 04:52 Comprehensive Metabolic Panel 02/20/18 Range/Units 04:52 Sodium 147 H (134-144) MEQ/L Potassium 3.6 (3.6-5) MEQ/L Chloride 115 H (98-107) MEQ/L Carbon Dioxide 21 L (22-30) MEQ/L BUN 40.0 H (7-17) MG/DL Creatinine 2.7 H (0.7-1.2) mg/dL Glucose 96 (65-110) MG/DL Calcium 8.3 L (8.4-10.2) MG/DL Intake and Output 02/19/18 02/20/18 02/20/18 22:59 06:59 14:59 Intake Total 240 / 240 120 / 120 Output Total 300 / 300 150 / 150 Balance -60 / -60 -30 / -30 Intake: Oral 240 / 240 120 / 120 Output: Urine 300 / 300 150 / 150 Other: Urine Appearance Clear Clear Urine Color Yellow Yellow Yellow Urine Odor Normal Normal Stool Color Brown Stool Consistency Soft Size of Bowel Movement Small # Voids 1 1 1 # Bowel Movements 1 Weight 169 kg Patient Weight 02/21/18 06:59 Weight 169 kg Assessment and Plan - Assessment and Plan (1) Sinus arrest Current visit: No Status: Resolved (2) Chronic kidney disease Current visit: No Status: Chronic (3) Essential (primary) hypertension Current visit: No Status: Chronic (4) Mixed hyperlipidemia Current visit: No Status: Chronic (5) Morbid obesity with BMI of 50.0-59.9, adult Current visit: No Status: Chronic (6) PAF (paroxysmal atrial fibrillation) Current visit: No Status: Acute (7) NSVT (nonsustained ventricular tachycardia) Current visit: No Status: Acute - Attestation Attestation Narrative: 02/20/18 13:26 Recommendation After examining the patient I agree with the above assessment. I am involved in the formulation of the patient's plan of care. Hospital Course Summary Disclaimer: The visit summary below is not to be considered part of the above Progress Note.
[2018-02-13] MEDS: APAP/DIPHENHYDRAMINE 500 MG/25 MG TABLET PO SCH (20:41)
[2018-02-14] MEDS: PANTOPRAZOLE 40 MG TABLET PO SCH (06:23)
[2018-02-14] MEDS: ACETAMINOPHEN 500 MG TABLET PO SCH ×2 (06:23→13:20)
[2018-02-14] MEDS: POLYETHYL GLYCOL 3350 17gm PACKET PO SCH (09:05)
[2018-02-14] MEDS: AMIODARONE 200 MG TABLET PO SCH (09:05)
[2018-02-14] MEDS: PROCHLORPERAZINE 10 MG TABLET PO SCH ×3 (09:05→20:28)
[2018-02-14] MEDS: SENNA + DOCUSATE TABLET PO SCH (09:06)
[2018-02-14] MEDS: APIXABAN 2.5 MG TABLET PO SCH ×2 (09:06→20:28)
[2018-02-14] MEDS: APAP/DIPHENHYDRAMINE 500 MG/25 MG TABLET PO SCH (20:28)
[2018-02-15] MEDS: HYDROCODONE/APAP 5mg/325mg TABLET PO PRN ×3 (00:15→23:39)
[2018-02-15] MEDS: AMIODARONE 200 MG TABLET PO SCH (09:11)
[2018-02-15] MEDS: SENNA + DOCUSATE TABLET PO SCH (09:11)
[2018-02-15] MEDS: PANTOPRAZOLE 40 MG TABLET PO SCH (09:11)
[2018-02-15] MEDS: ACETAMINOPHEN 500 MG TABLET PO SCH ×2 (09:12→15:00)
[2018-02-15] MEDS: APIXABAN 2.5 MG TABLET PO SCH ×2 (09:12→21:15)
[2018-02-15] MEDS: POLYETHYL GLYCOL 3350 17gm PACKET PO SCH (09:13)
[2018-02-15] MEDS: PROCHLORPERAZINE 10 MG TABLET PO SCH ×3 (09:13→21:15)
[2018-02-15] MEDS: APAP/DIPHENHYDRAMINE 500 MG/25 MG TABLET PO SCH (21:14)
[2018-02-16] MEDS: PANTOPRAZOLE 40 MG TABLET PO SCH ×2 (04:52→05:41)
[2018-02-16] MEDS: ACETAMINOPHEN 500 MG TABLET PO SCH ×2 (08:34→15:15)
[2018-02-16] MEDS: AMIODARONE 200 MG TABLET PO SCH (08:34)
[2018-02-16] MEDS: POLYETHYL GLYCOL 3350 17gm PACKET PO SCH (08:35)
[2018-02-16] MEDS: PROCHLORPERAZINE 10 MG TABLET PO SCH (08:35)
[2018-02-16] MEDS: APIXABAN 2.5 MG TABLET PO SCH ×2 (08:35→20:01)
[2018-02-16] MEDS: SENNA + DOCUSATE TABLET PO SCH (08:35)
--- NOTE | 2018-02-16 11:44 | IRU Progress Note ---
- Subjective/Serverity of Illness Date: 02/16/18 Sully states that her energy level is about the same as it is at home. She may be only slightly more dyspneic than typical. She denies any chest pain. There is been no lightheadedness and no clinical indication of arrhythmia. She remains on telemetry with normal sinus rhythm identified. She previously had some atrial fibrillation as well as nonsustained V. tach. That has not recurred. She continues to work with therapy. She reports that her left knee tends to "give out." She denies any cough or sputum. Brief therapy update: For occupational therapy she requires moderate assistance for bathing, standby assistance for upper body dressing but maximum assistance for lower body dressing. For physical therapy she remains unsafe to ambulate. Working on standing slowly. Primary medical standpoint, her creatinine is improved at 2.5. EGFR is 19. Her hemoglobin stable at around 10 g percent which is probably stable and normal for her with her renal function. Her lungs remain clear. Her weight is stable as well. Exam Vital Signs: Temperature 97.1 F 02/16/18 08:00 Pulse Rate 59 L 02/16/18 08:00 Respiratory Rate 20 02/16/18 08:00 Blood Pressure 151/71 H 02/16/18 08:00 Pulse Oximetry 93 02/16/18 08:00 Height/Weight/BMI: Height 1.7 m Weight 170 kg - Constitutional Present: well nourished, well developed, morbidly obese, cooperative - Routine HEENT Exam Head: Present: normocephalic Eye: Present: EOMI ENT: Present: mucous membranes moist, oropharynx clear - Routine Respiratory Exam Present: decreased breath sounds, CTA bilaterally. Absent: wheezes - Routine Cardiovascular Exam Present: RRR, S1, S2. Absent: murmur - Routine Abdominal Exam Present: soft, normoactive bowel sounds, non distended. Absent: tenderness - Routine Extremities Exam Present: edema Comments: Patient wondered about getting her toenails trimmed. They could probably be filed at some point but do not impede her functional recovery here and we recommend that this be done as an outpatient. - Routine Skin Exam Present: dry, warm - Routine Neurological Exam Present: alert, oriented X3, CN II-XII intact - Routine Psychiatric Exam Present: normal affect, cooperative Results IRU - Labs Labs: Reviewed laboratory and discussed with patient. Creatinine is improved at 2.5. IRU A/P (1) Acute on chronic respiratory failure with hypoxemia Current visit: Yes Status: Resolved (2) Acute on chronic kidney failure Qualifiers: Acute renal failure type: unspecified Chronic kidney disease stage: stage 4 (severe) Qualified Code(s): N17.9 - Acute kidney failure, unspecified; N18.4 - Chronic kidney disease, stage 4 (severe) Current visit: Yes Status: Acute Renal function has improved. (3) Diastolic CHF, acute on chronic Current visit: Yes Status: Acute Continues to have some degree of dyspnea with activity although felt to be stable at present. (4) PAF (paroxysmal atrial fibrillation) Current visit: No Status: Acute DVT Prophylaxis: Eliquis Resuscitation Status: Do Not Intubate - Course Hospital Course: Tevin Rice MD: 02/05/18 14:57 Patient is cooperating with physical therapy. Is making an effort to increase her stamina. Pain is controlled and we will reevaluate tomorrow. Medical issues being managed including acute on chronic kidney injury. Continue with physical therapy and occupational therapy support. 02/09/18 10:48 Medically complex. Easily fatigued with therapy. Lasix on hold. Received IV fluids over the weekend. CT scan showed ileus. 02/10/18 10:33 Changed from atenolol to metoprolol yesterday by cardiology. Review of KUB demonstrates gas filled loops likely consistent with ileus. Remains off supplemental oxygen. Easy fatigability persists but improved. 02/11/18 09:49 Easy fatigability. Patient discouraged because she is not walking yet. Bowels are back to baseline. Oxygen requirements are back to baseline. Weight down 3 kg. 02/13/18 11:27 Weight essentially stable. Lasix remains on hold. Lungs are clear with diminished breath sounds. Creatinine slightly improved at 3.0 with estimated GFR 16. 02/16/18 11:46 Weight is stable. Lungs are clear. Creatinine improved at 2.5. Slow progress with therapy. - Interventions to Obtain Goals PT Treatment Plan: Balance/Proprioception, Functional Activities, Gait Training , Patient/Family Education, Therapeutic Exercise OT Treatment Plan: ADL (Basic Care), Balance Training, Pt./Family Education, Ther. Exercise for ADL
--- NOTE | 2018-02-16 12:22 | Progress Note ---
- Date 02/16/18 Subjective: Sully was sitting in her room, watching television. She is feeling better. Her nausea has resolved. Her bowel function has returned to normal and she denies abdominal pain/cramping. She is slowly improving with therapy. She still gets SOA at times but she feels like she is improving in this regard as well. Objective Vital signs: Temperature 97.1 F 02/16/18 08:00 Pulse Rate 59 L 02/16/18 08:00 Respiratory Rate 20 02/16/18 08:00 Blood Pressure 151/71 H 02/16/18 08:00 Pulse Oximetry 93 02/16/18 08:00 Rhythm: Normal Sinus Rhythm Height/Weight/BMI: Height 1.7 m Weight 170 kg - Constitutional Present: no acute distress, well nourished, well developed - Routine HEENT Exam Head: Present: normocephalic Eye: Absent: conjunctival icterus, scleral injection - Routine Respiratory Exam Present: decreased breath sounds - Routine Cardiovascular Exam Present: RRR, S1, S2 - Routine Abdominal Exam Present: soft, normoactive bowel sounds, non distended, non tender - Routine Extremities Exam Present: edema (both legs are wrapped with FREDA wraps) - Routine Skin Exam Present: intact, dry, warm - Routine Neurological Exam Present: alert, oriented X3, vision grossly intact, hearing grossly intact, normal speech - Routine Psychiatric Exam Present: normal affect, normal thought process, cooperative Results - Labs CBC & Chem 7: 02/16/18 04:42 02/16/18 04:42 Assessment and Plan (1) Acute on chronic respiratory failure with hypoxemia Current visit: Yes Status: Resolved Assessment and Plan: Assessment: Generalized debility secondary to acute prolonged illness. Nausea - onset 02/01/18 Acute hypoxemic and hypercapnic respiratory failure with pulmonary edema. Her pulmonary edema is improved at this time but she continues to demonstrate evidence of dyspnea with activity and requires occasional oxygen supplementation. Diastolic heart failure, acute on chronic with pulmonary edema - EF 45-50%. Acute on chronic kidney injury. Morbid obesity - BMI 58. Diabetes mellitus type 2, not on long-term insulin Obstructive sleep apnea with obesity/hypoventilation syndrome on home BiPAP Chronic back pain with osteoarthritis Slow transit constipation Cardiac dysrhythmias characterized by paroxysmal atrial fibrillation and nonsustained ventricular tachycardia. Patient has now been started on amiodarone as of yesterday. Chronic kidney disease-stage IV (baseline SCr 2.5) Hypercholesterolemia Hypertension Plan: Creatinine down to baseline this am @ 2.5. Weight has been holding stable between 169-170 kg since 02/11. Her furosemide 40 mg daily still on hold - could consider restarting at 20 mg daily if weight continues to trend back up. She's on room air during the day and reports that overall her resp status is near baseline. Nausea improved. Change Compazine to PRN. Repeat BMP on 02/18. DVT Prophylaxis: Eliquis GI Prophylaxis: Protonix Resuscitation Status: Do Not Intubate - Physician Narrative Physician: Carla Sanchez MD Narrative: Date: 02/16/18 Time: 1745 Ms. Arshad independently interviewed and examined by me. She is sitting up in the wheelchair watching TV. Family in room. She is feeling well. She looks good too. Her creatinine is back down to baseline at 2.5. Her weight is stable. I would suggest PRN Lasix for weight gain. She denied any fevers or chills. She denies any cough or sputum production. She is on room air and denies feeling short of breath. She denied nausea or vomiting. PE: Gen: alert and oriented. NAD Skin: warm and dry HEENT: NC/AT PERRL, EOMI, Sclera, lids and conjunctiva wnl, MMM, OP clear Neck: supple. No JVD, Carotids 2+ without bruits. Lungs: clear, No rales, rhonchi, wheezes. CV: regular. No murmur, rub or gallop Abd: obese, soft. NT/ND, +BS MS: Bilateral LEs in freda wraps, 2-3+ edema Neuro: No focal deficit Psy: normal mood and affect I have reviewed the patient's labs, notes and imaging. Would recommend daily weights and Lasix as needed for weight gain greater than 2 pounds in one day or 5 pounds in one week. Patient was discussed with the nurse practitioner and I agree with the assessment and plan as documented above. Hospital Course Summary Disclaimer: The visit summary below is not to be considered part of the above Progress Note. Hospital Course: 02/05/18 BUN up to 60 and creatinine increased to 3.6. Lasix put on hold though she already received it this am. The hospitalist staff determined her dry weight to be around 169 kg; this am she was 167. Will give NS 500 mL bolus. Recheck BMP in am. Breathing stable on room air today - yesterday dropped briefly into the 80s. Tele - sinus. Continue amiodarone/Eliquis/BB per cardiology. 02/07 Slight improvement in renal function with BUN of 63 and creatinine of 3.6. Discussed with Dr. Clarke: continue IVF and continue to hold Lasix. Weight is trending up but pt denies dyspnea. Will make compazine PRN instead of scheduled since nausea has resolved. Plan: 02/08/18 Patient continues to report some abdominal discomfort and distention. Possible mild ileus on CT done earlier in the week. Will repeat KUB in AM. May need to add Dulcolax NC if persists. Home BIpap may be contributing to excess air in GI system. CT reviewed- no overt constipation. HR is controlled on Amiodarone. SCR mildly decreased with IVF. Will hold off on further due to recurrent issues with fluid overload. HGB is trending down a little- monitor closely. Plan repeat labs in AM for reassessment.
[2018-02-16] MEDS ORDERED: PROCHLORPERAZINE 10 MG TABLET PO PRN (12:35)
--- NOTE | 2018-02-16 14:20 | IRU Team Meeting ---
IRU Team Meeting - Nursing Bladder Assistive Devices Utilized:: Bedside Commode, Absorbent Pad Bladder Management Level of Assist: Total Assistance Bladder Frequency of Accidents: No accidents; uses device Bowel Assistive Devices Utilized:: Medication, Bedside Commode, Absorbent Pad Bowel Management Level of Assist: Total Assistance Bowel Frequency of Accidents: No accidents Vital Signs: Vital Signs - 24 hr 02/15/18 16:00 02/15/18 23:56 02/16/18 00:00 Temperature 98.3 F Pulse Rate 74 67 71 Respiratory Rate 18 22 Blood Pressure 153/71 H 148/66 H Pulse Oximetry 94 92 02/16/18 08:00 Temperature 97.1 F Pulse Rate 59 L Respiratory Rate 20 Blood Pressure 151/71 H Pulse Oximetry 93 Current Medications: Acetaminophen (Tylenol) 1,000 mg PO [id number] [facility] Last Admin: 02/16/18 08:34 Dose: 1,000 mg Acetaminophen/Diphenhydramine HCl (Tylenol Pm) 2 tab PO HS [facility] Last Admin: 02/15/18 21:14 Dose: 2 tab Hydrocodone Bitart/Acetaminophen ([place] 5/325) 1 tab PO Q4H PRN PRN Reason: Pain Last Admin: 02/15/18 23:39 Dose: 1 tab Amiodarone HCl (Pacerone) 200 mg PO DAILY [facility] Last Admin: 02/16/18 08:34 Dose: 200 mg Apixaban (Eliquis) 2.5 mg PO BID [facility] Last Admin: 02/16/18 08:35 Dose: 2.5 mg Cholecalciferol (Vit. D-3) 1,000 unit PO DAILY [facility] Last Admin: 02/16/18 08:35 Dose: 1,000 unit Furosemide (Lasix 40 Mg Tab) 40 mg PO DAILY [facility] Last Admin: 02/05/18 08:20 Dose: 40 mg Linaclotide (Linzess) 145 mcg PO 0730 [facility] Last Admin: 02/08/18 07:00 Dose: 145 mcg Magnesium Hydroxide (Mom) 30 ml PO DAILY PRN PRN Reason: Constipation Metoprolol Tartrate (Lopressor) 50 mg PO BIDWM [facility] Last Admin: 02/16/18 08:35 Dose: 50 mg Nifedipine (Procardia Xl) 30 mg PO DAILY [facility] Last Admin: 02/16/18 08:35 Dose: 30 mg Nystatin (Mycostatin) 1 applic TP TID [facility] Last Admin: 02/16/18 09:00 Dose: 1 applic Ondansetron HCl (Zofran) 4 mg IVP Q4H PRN PRN Reason: Nausea &/or vomiting Last Admin: 02/08/18 00:33 Dose: 4 mg Pantoprazole Sodium (Protonix Tab) 40 mg PO ACB [facility] Last Admin: 02/16/18 05:41 Dose: Not Given Polyethylene Glycol (Miralax) 17 gm PO DAILY [facility] Last Admin: 02/16/18 08:35 Dose: 17 gm Prochlorperazine (Compazine) 5 mg PO TID PRN Senna/Docusate Sodium (Senna Plus Tablet) 1 tab PO BID PRN PRN Reason: Constipation Senna/Docusate Sodium (Senna Plus Tablet) 2 tab PO DAILY [facility] Last Admin: 02/16/18 08:35 Dose: 2 tab Simethicone (Mylicon) 80 mg PO Q2H PRN PRN Reason: Gas Last Admin: 02/13/18 19:19 Dose: 80 mg Sodium Chloride (Iv Flush) 10 - 80 ml IVF PRN PRN PRN Reason: Flushing Last Admin: 02/13/18 17:42 Dose: 10 ml Trolamine Salicylate (Aspercreme) 1 applic TOP PRN PRN Current Medical Issues: Acute on chronic kidney failure (current creatinine 2.5), slow transit constipation, nausea, paroxysmal atrial fibrillation, new usage of Eliquis, fluid balance Comments: I certify that I personally led the interdisciplinary team meeting and agree with comments, barriers and goals indicated. Team meeting was held in the patient's room with the patient and the following family members present: patient's Please creatinine is improved at 2.5. She continues to have some dyspnea with activity. Her appetite remains good. Her bowels are more well controlled at present. She does have increased flatulence at times with movement. - Physical Therapy Bed, Chair, Wheelchair Transfer Assist: Total Assistance, 1 Person Assist Ambulation Ability: Patient Unsafe/Unable Ambulation Distance: 80 Wheelchair Propulsion Ability: Stand By Assist/Supervision, Household Exception Wheelchair Propulsion Distance: 144 Stair Climbing Ability: Patient Unsafe/Unable Car Transfer Ability: Patient Unsafe/Unable Comments: Progress toward her goals is slow. She continues to require the use of a sit to stand left with transfers. She is able to perform/demonstrate depression type transfers but continues to require significant assistance with that. Has easy fatigability and demonstrates a degree of lack of confidence. Has made progress regarding wheelchair propulsion. - Occupational Therapy Eating Ability: Independent Grooming Ability: Independent Bathing Ability: Minimal Assistance Upper Body Dressing Ability: Minimal Assistance Lower Body Dressing Ability: Moderate Assistance Tub Transfer Assist: Total Assistance, 2 or More Person Assist Toileting Assist: Total Assistance Toilet Transfer Assist: Total Assistance, 2 or More Person Assist Comments: She demonstrates a degree of anxiety and requires significant encouragement with all transfers. She has met her goals regarding grooming and bathing tasks as well as dressing tasks. Does have easy fatigability and back pain and is emotional during activities at times. - Goals Physical Therapy Goals: 02/09/18: 1. Pt will transfer with FWW with max assist. - partially met, SPT max A. 2. Pt will propel w/ch 50 ft with stand by assist. - met. 02/16/18: 1.) Depression transfer consistently with moderate assistance. 2.) Standing at parallel bars for 30 seconds with contact guard assist to maintain. Occupational Therapy Goals: 02/09. 1. Patient to perform UE dressing with mod A in order to improve independence towards PLOF. -goal met (min assist). 2. Patient to perform LE dressing for sock/shoe donning with max A with use of AE in order to decrease dependence on home caregiver and improve independence.- goal met (mod-max). 3. Patient to perform bathing with max A in order to improve independence towards PLOF. - goal met (min-mod assist). 02/16/18: 1.) Transfer on/off bedside commode with moderate assistance. - Barriers to Discharge Barriers to Attaining Goals: Weakness (progressive resistive therapeutic exercises are provided.), Endurance (encouragement to take fewer rest breaks), Other (patient demonstrates lack of confidence. She is provided positive reinforcement.) - Care Plan Anticipated Length of Stay (days): 4 Anticipated DC Destination: Home, Self Care, Home Health Service I have led this team conference and agree with the plan. Interventions/Goals: Sully has made some progress although it is quite slow. She demonstrates significant lack of confidence and anxiety at times. Left knee seems to be a difficulty for her. Continues to require sit to stand transfer left. Discussed with patient the possibility of transferring to a less intensive level of care but she declines. has been involved in family therapy. Continue to work with patient with significant encouragement.
--- NOTE | 2018-02-16 16:00 | Cardiology Progress Note ---
<Montse Valenzuela M - Last Filed: 02/17/18 07:55> Subjective Principal diagnosis: NSVT, A Fib Interval history: Sully is seen in follow up for arrhythmias, including sinus pause, PAF and NSVT. She is examined in her room where she is in her bed She denies chest pain , pressure, palpitations, dyspnea. Exam Vital signs: Temperature 98.3 F 02/16/18 15:43 Pulse Rate 75 02/16/18 15:43 Respiratory Rate 18 02/16/18 15:43 Blood Pressure 153/72 H 02/16/18 15:43 Pulse Oximetry 93 02/16/18 15:43 Inpatient Medications: Generic Name Dose Route Start Last Admin Trade Name Freq PRN Reason Stop Dose Admin Acetaminophen 1,000 mg 02/04/18 07:00 02/16/18 15:15 Tylenol PO 1,000 mg [id number] MYNOR Administration Acetaminophen/Diphenhydramine HCl 2 tab 02/03/18 21:00 02/15/18 21:14 Tylenol Pm PO 2 tab HS MYNOR Administration Hydrocodone Bitart/Acetaminophen 1 tab 02/03/18 14:41 02/15/18 23:39 [place] 5/325 PO 1 tab Q4H PRN Administration Pain Amiodarone HCl 200 mg 02/09/18 09:00 02/16/18 08:34 Pacerone PO 200 mg DAILY MYNOR Administration Apixaban 2.5 mg 02/03/18 21:00 02/16/18 08:35 Eliquis PO 2.5 mg BID MYNOR Administration Cholecalciferol 1,000 unit 02/04/18 09:00 02/16/18 08:35 Vit. D-3 PO 1,000 unit DAILY MYNOR Administration Furosemide 40 mg 02/04/18 09:00 02/05/18 08:20 Lasix 40 Mg Tab PO 40 mg DAILY MYNOR Administration Linaclotide 145 mcg 02/04/18 07:30 02/08/18 07:00 Linzess PO 145 mcg 0730 MYNOR Administration Magnesium Hydroxide 30 ml 02/04/18 12:23 Mom PO DAILY PRN Constipation Metoprolol Tartrate 50 mg 02/10/18 08:00 02/16/18 08:35 Lopressor PO 50 mg BIDWM MYNOR Administration Nifedipine 30 mg 02/07/18 09:00 02/16/18 08:35 Procardia Xl PO 30 mg DAILY MYNOR Administration Nystatin 1 applic 02/09/18 15:00 02/16/18 15:15 Mycostatin TP 1 applic TID MYNOR Administration Ondansetron HCl 4 mg 02/03/18 14:41 02/08/18 00:33 Zofran IVP 4 mg Q4H PRN Administration Nausea &/or vomiting Pantoprazole Sodium 40 mg 02/07/18 08:56 02/16/18 05:41 Protonix Tab PO Not Given ACB MYNOR Polyethylene Glycol 17 gm 02/09/18 09:00 02/16/18 08:35 Miralax PO 17 gm DAILY MYNOR Administration Prochlorperazine 5 mg 02/16/18 12:35 Compazine PO TID PRN Senna/Docusate Sodium 1 tab 02/03/18 14:41 Senna Plus Tablet PO BID PRN Constipation Senna/Docusate Sodium 2 tab 02/09/18 09:00 02/16/18 08:35 Senna Plus Tablet PO 2 tab DAILY MY[facility] Administration Simethicone 80 mg 02/08/18 14:29 02/13/18 19:19 Mylicon PO 80 mg Q2H PRN Administration Gas Sodium Chloride 10 - 80 ml 02/03/18 14:41 02/13/18 17:42 Iv Flush IVF 10 ml PRN PRN Administration Flushing Trolamine Salicylate 1 applic 02/03/18 14:41 Aspercreme TOP PRN PRN Discontinued Medications Generic Name Dose Route Start Last Admin Trade Name Freq PRN Reason Stop Dose Admin Acetaminophen 500 mg 02/09/18 10:14 02/09/18 10:27 Tylenol PO 02/09/18 10:15 500 mg NOW ONE Administration Amiodarone HCl 400 mg 02/03/18 21:00 02/08/18 22:33 Pacerone PO 02/08/18 21:00 400 mg BID MYNOR Administration Aspirin 162 mg 02/03/18 21:00 02/11/18 08:29 Ecotrin PO 162 mg BID MYNOR Administration Atenolol 50 mg 02/03/18 21:00 02/03/18 20:45 Tenormin PO 50 mg BID MYNOR Administration Atenolol 25 mg 02/04/18 21:00 02/09/18 08:34 Tenormin PO 25 mg BID MYNOR Administration Diphenhydramine HCl 25 mg 02/06/18 12:56 02/06/18 13:13 Benadryl IVP 02/06/18 12:57 25 mg O ONE Administration Sodium Chloride 500 mls @ 150 mls/hr 02/05/18 12:08 02/05/18 16:45 Normal Saline IV 02/05/18 15:27 Infused .Q3H20M ONE Infusion Sodium Chloride 500 mls @ 250 mls/hr 02/06/18 10:00 02/06/18 13:15 Normal Saline IV 02/06/18 11:59 Infused .Q2H MYNOR Infusion Sodium Chloride 1,000 mls @ 75 mls/hr 02/06/18 16:00 02/07/18 20:25 Normal Saline IV Not Given .[id number] MYNOR Nifedipine 60 mg 02/04/18 09:00 02/05/18 08:20 Procardia Xl PO 60 mg DAILY MYNOR Administration Pharmacy Consult 1 each 02/03/18 14:41 Pharmacy Consult - Fall Risk 02/03/18 14:42 ONE TIME ONE Pneumococcal 7-Valent Conj Vacc 0.5 ml 02/04/18 18:36 02/04/18 20:41 Prevnar 13 IM 02/04/18 18:37 0.5 ml .ONCE ONE Administration Polyethylene Glycol 17 gm 02/04/18 09:00 Miralax PO DAILY MYNOR Polyethylene Glycol 17 gm 02/03/18 15:15 Miralax PO DAILY PRN Constipation Prochlorperazine 10 mg 02/06/18 09:00 02/07/18 15:20 Compazine PO 10 mg TID MYNOR Administration Prochlorperazine 10 mg 02/07/18 15:52 Compazine PO TID PRN Prochlorperazine 10 mg 02/11/18 15:00 02/16/18 08:35 Compazine PO 10 mg TID MYNOR Administration Promethazine HCl 25 mg 02/06/18 11:29 02/06/18 11:38 Phenergan Inj IM 25 mg Q6H PRN Administration - Constitutional no acute distress, morbidly obese, cooperative - Routine HEENT Exam Head: Present: normocephalic ENT: Present: mucous membranes moist - Routine Neck Exam Absent: JVD, carotid bruit - Routine Chest/Breast/Axilla Exam Chest wall: Absent: tenderness - Routine Respiratory Exam Present: decreased breath sounds, CTA bilaterally - Routine Cardiovascular Exam Present: RRR, no murmur - Routine Abdominal Exam Present: soft - Routine Extremities Exam Present: edema - Routine Skin Exam Present: intact, dry, warm - Routine Neurological Exam Present: alert, oriented X3 - Routine Psychiatric Exam Present: normal affect, normal thought process Results 02/16/18 04:42 02/16/18 04:42 CBC 02/16/18 Range/Units 04:42 WBC 6.3 (4.5-11.0) T/MM3 RBC 3.37 L (4.00-5.20) M/MM3 Hgb 10.0 L (12-16) GM/DL Hct 32.3 L (36-46) % Plt Count 317 D (130-400) T/MM3 Neut # (Auto) 3.2 (1.8-7.7) T/MM3 Lymph # (Auto) 2.1 (1-4.8) T/MM3 [place] # (Auto) 0.6 (0-0.8) T/MM3 Eos # (Auto) 0.4 (0-0.5) T/MM3 Baso # (Auto) 0.0 (0-0.2) T/MM3 Comprehensive Metabolic Panel 02/16/18 Range/Units 04:42 Sodium 148 H (134-144) MEQ/L Potassium 3.8 (3.6-5) MEQ/L Chloride 117 H (98-107) MEQ/L Carbon Dioxide 20 L (22-30) MEQ/L BUN 41.0 H (7-17) MG/DL Creatinine 2.5 H D (0.7-1.2) mg/dL Glucose 88 (65-110) MG/DL Calcium 8.4 (8.4-10.2) MG/DL Intake and Output 02/16/18 02/16/18 02/16/18 06:59 14:59 22:59 Intake Total 220 / 220 1200 / 1200 Output Total 600 / 600 Balance -380 / -380 1200 / 1200 Intake: Oral 220 / 220 1200 / 1200 Output: Urine 600 / 600 Other: Urine Color Yellow Urine Odor Strong Weight 379 lb 3.121 oz Patient Weight 02/17/18 06:59 Weight 379 lb 3.121 oz Assessment and Plan - Assessment and Plan (1) PAF (paroxysmal atrial fibrillation) Current visit: No Status: Acute (2) Sinus arrest Current visit: No Status: Resolved (3) Essential (primary) hypertension Current visit: No Status: Chronic (4) Mixed hyperlipidemia Current visit: No Status: Chronic (5) Chronic kidney disease Current visit: No Status: Chronic (6) Morbid obesity with BMI of 50.0-59.9, adult Current visit: No Status: Chronic (7) NSVT (nonsustained ventricular tachycardia) Current visit: No Status: Acute - Assessment and Plan 02/04/18 Sinus Arrest Pauses resolved - Received Atenolol 50mg last evening, no pauses noted on telemetry - Will resume low dose BB this evening and watch telemetry for pauses NSVT: Continue Amiodarone 400mg BID for 1 week then 200mg daily - Not a candidate for LHC due to CKD and elevated BUN/SCr - EKG now - monitor cardiac telemetry PAF: Continue Eliquis 2.5mg BID for stroke prevention - Continue to monitor cardiac telemetry - HGB/ platelets stable HTN: Continue Nifedipine 60mg daily CKD:BUN 52/ Scr 2.9 - Seen by - Does not want hemodialysis. Diastolic CHF Mixed hyperlipidemia Morbid obesity with BMI of 50.0-59.9, adult 02/05/18 Hold Atenolol for now as patient is not comfortable taking it. - Continue to monitor telemetry for VTach/ AFib 02/06/18 No further dysrhythmias on tele, continue to monitor. CT abd/pelvis per attending 02/09/18 Stop Atenolol as cleared by renal - Start Metoprolol 50mg po BID - continue to monitor telemetry 02/10/18 Tele: SR, HR 62 BUN/SCr 59/3.5, NA 145 on Lasix 40mg po daily No change to POC today, continue to monitor Telemetry for pauses, Vtach or AFib 02/11/18 Short run of Ventricular beats yesterday on tele - Continue to monitor telemetry. 02/13/18 Telemetry remains SR, without pauses, AFib or NSVT BUN/ SCr 49/3.0, continues to improve. (Patient refuses hemodialysis) 02/16/18 Okay to DC telemetry, rhythm has been stable - Please call if any further needs arise and we will be glad to see her in the future. Hospital Course Summary Disclaimer: The visit summary below is not to be considered part of the above Progress Note. Hospital Course: 02/05/18 BUN up to 60 and creatinine increased to 3.6. Lasix put on hold though she already received it this am. The hospitalist staff determined her dry weight to be around 169 kg; this am she was 167. Will give NS 500 mL bolus. Recheck BMP in am. Breathing stable on room air today - yesterday dropped briefly into the 80s. Tele - sinus. Continue amiodarone/Eliquis/BB per cardiology. 02/07 Slight improvement in renal function with BUN of 63 and creatinine of 3.6. Discussed with Dr. Clarke: continue IVF and continue to hold Lasix. Weight is trending up but pt denies dyspnea. Will make compazine PRN instead of scheduled since nausea has resolved. Plan: 02/08/18 Patient continues to report some abdominal discomfort and distention. Possible mild ileus on CT done earlier in the week. Will repeat KUB in AM. May need to add Dulcolax AK if persists. Home BIpap may be contributing to excess air in GI system. CT reviewed- no overt constipation. HR is controlled on Amiodarone. SCR mildly decreased with IVF. Will hold off on further due to recurrent issues with fluid overload. HGB is trending down a little- monitor closely. Plan repeat labs in AM for reassessment. <Spencer Johnson - Last Filed: 02/20/18 13:27> Exam Vital signs: Temperature 97.6 F 02/20/18 07:25 Pulse Rate 70 02/20/18 07:25 Respiratory Rate 18 02/20/18 07:25 Blood Pressure 149/70 H 02/20/18 07:25 Pulse Oximetry 94 02/20/18 07:25 Inpatient Medications: Generic Name Dose Route Start Last Admin Trade Name Freq PRN Reason Stop Dose Admin Acetaminophen 1,000 mg 02/04/18 07:00 02/20/18 08:29 Tylenol PO 1,000 mg [id number] MYNOR Administration Hydrocodone Bitart/Acetaminophen 1 tab 02/03/18 14:41 02/20/18 13:24 [place] 5/325 PO 1 tab Q4H PRN Administration Pain Amiodarone HCl 200 mg 02/09/18 09:00 02/20/18 08:29 Pacerone PO 200 mg DAILY MYNOR Administration Apixaban 2.5 mg 02/03/18 21:00 02/20/18 08:29 Eliquis PO 2.5 mg BID MYNOR Administration Cholecalciferol 1,000 unit 02/04/18 09:00 02/20/18 08:28 Vit. D-3 PO 1,000 unit DAILY MYNOR Administration Diphenhydramine HCl 50 mg 02/19/18 21:00 02/19/18 21:17 Benadryl PO 50 mg HS MYNOR Administration Furosemide 40 mg 02/04/18 09:00 02/05/18 08:20 Lasix 40 Mg Tab PO 40 mg DAILY MYNOR Administration Furosemide 20 mg 02/17/18 13:30 02/18/18 08:37 Lasix 20 Mg Tab PO 20 mg DAILY MYNOR Administration Linaclotide 145 mcg 02/04/18 07:30 02/08/18 07:00 Linzess PO 145 mcg 0730 MYNOR Administration Magnesium Hydroxide 30 ml 02/04/18 12:23 Mom PO DAILY PRN Constipation Metoprolol Tartrate 50 mg 02/10/18 08:00 02/20/18 08:29 Lopressor PO 50 mg BIDWM MYNOR Administration Nifedipine 60 mg 02/17/18 09:00 02/20/18 08:28 Procardia Xl PO 60 mg DAILY [facility] Administration Nystatin 1 applic 02/09/18 15:00 02/20/18 10:00 Mycostatin TP 1 applic TID [facility] Administration Ondansetron HCl 4 mg 02/03/18 14:41 02/08/18 00:33 Zofran IVP 4 mg Q4H PRN Administration Nausea &/or vomiting Pantoprazole Sodium 40 mg 02/07/18 08:56 02/20/18 08:11 Protonix Tab PO Not Given ACB [facility] Polyethylene Glycol 17 gm 02/09/18 09:00 02/20/18 08:29 Miralax PO 17 gm DAILY [facility] Administration Potassium Chloride 10 meq 02/18/18 08:00 02/20/18 08:29 Micro-K 10 Meq Capsule PO 10 meq WB MYNOR Administration Prochlorperazine 10 mg 02/18/18 18:42 Compazine PO TID PRN Senna/Docusate Sodium 1 tab 02/03/18 14:41 Senna Plus Tablet PO BID PRN Constipation Senna/Docusate Sodium 2 tab 02/09/18 09:00 02/20/18 08:28 Senna Plus Tablet PO 2 tab DAILY MYNOR Administration Simethicone 80 mg 02/08/18 14:29 02/20/18 13:25 Mylicon PO 80 mg Q2H PRN Administration Gas Sodium Chloride 10 - 80 ml 02/03/18 14:41 02/13/18 17:42 Iv Flush IVF 10 ml PRN PRN Administration Flushing Trolamine Salicylate 1 applic 02/03/18 14:41 02/17/18 15:11 Aspercreme TOP 1 applic PRN PRN Administration Discontinued Medications Generic Name Dose Route Start Last Admin Trade Name Freq PRN Reason Stop Dose Admin Acetaminophen 500 mg 02/09/18 10:14 02/09/18 10:27 Tylenol PO 02/09/18 10:15 500 mg NOW ONE Administration Acetaminophen/Diphenhydramine HCl 2 tab 02/03/18 21:00 02/18/18 21:04 Tylenol Pm PO 1 tab HS MYNOR Administration Amiodarone HCl 400 mg 02/03/18 21:00 02/08/18 22:33 Pacerone PO 02/08/18 21:00 400 mg BID MYNOR Administration Aspirin 162 mg 02/03/18 21:00 02/11/18 08:29 Ecotrin PO 162 mg BID MYNOR Administration Atenolol 50 mg 02/03/18 21:00 02/03/18 20:45 Tenormin PO 50 mg BID MYNOR Administration Atenolol 25 mg 02/04/18 21:00 02/09/18 08:34 Tenormin PO 25 mg BID MYNOR Administration Diphenhydramine HCl 25 mg 02/06/18 12:56 02/06/18 13:13 Benadryl IVP 02/06/18 12:57 25 mg O ONE Administration Sodium Chloride 500 mls @ 150 mls/hr 02/05/18 12:08 02/05/18 16:45 Normal Saline IV 02/05/18 15:27 Infused .Q3H20M ONE Infusion Sodium Chloride 500 mls @ 250 mls/hr 02/06/18 10:00 02/06/18 13:15 Normal Saline IV 02/06/18 11:59 Infused .Q2H MYNOR Infusion Sodium Chloride 1,000 mls @ 75 mls/hr 02/06/18 16:00 02/07/18 20:25 Normal Saline IV Not Given .[id number] MYNOR Nifedipine 60 mg 02/04/18 09:00 02/05/18 08:20 Procardia Xl PO 60 mg DAILY MYNOR Administration Nifedipine 30 mg 02/07/18 09:00 02/16/18 08:35 Procardia Xl PO 30 mg DAILY MYNOR Administration Pharmacy Consult 1 each 02/03/18 14:41 Pharmacy Consult - Fall Risk 02/03/18 14:42 ONE TIME ONE Pneumococcal 7-Valent Conj Vacc 0.5 ml 02/04/18 18:36 02/04/18 20:41 Prevnar 13 IM 02/04/18 18:37 0.5 ml .ONCE ONE Administration Polyethylene Glycol 17 gm 02/04/18 09:00 Miralax PO DAILY MYNOR Polyethylene Glycol 17 gm 02/03/18 15:15 Miralax PO DAILY PRN Constipation Potassium Chloride 10 meq 02/17/18 13:29 02/17/18 14:42 Micro-K 10 Meq Capsule PO 02/17/18 13:30 10 meq O ONE Administration Prochlorperazine 10 mg 02/06/18 09:00 02/07/18 15:20 Compazine PO 10 mg TID MYNOR Administration Prochlorperazine 10 mg 02/07/18 15:52 Compazine PO TID PRN Prochlorperazine 10 mg 02/11/18 15:00 02/16/18 08:35 Compazine PO 10 mg TID MYNOR Administration Prochlorperazine 5 mg 02/16/18 12:35 Compazine PO TID PRN Prochlorperazine 5 mg 02/18/18 11:00 02/18/18 18:17 Compazine PO 5 mg TID PRN Administration Promethazine HCl 25 mg 02/06/18 11:29 02/06/18 11:38 Phenergan Inj IM 25 mg Q6H PRN Administration Results 02/16/18 04:42 02/20/18 04:52 Comprehensive Metabolic Panel 02/20/18 Range/Units 04:52 Sodium 147 H (134-144) MEQ/L Potassium 3.6 (3.6-5) MEQ/L Chloride 115 H (98-107) MEQ/L Carbon Dioxide 21 L (22-30) MEQ/L BUN 40.0 H (7-17) MG/DL Creatinine 2.7 H (0.7-1.2) mg/dL Glucose 96 (65-110) MG/DL Calcium 8.3 L (8.4-10.2) MG/DL Intake and Output 02/19/18 02/20/18 02/20/18 22:59 06:59 14:59 Intake Total 240 / 240 120 / 120 Output Total 300 / 300 150 / 150 Balance -60 / -60 -30 / -30 Intake: Oral 240 / 240 120 / 120 Output: Urine 300 / 300 150 / 150 Other: Urine Appearance Clear Clear Urine Color Yellow Yellow Yellow Urine Odor Normal Normal Stool Color Brown Stool Consistency Soft Size of Bowel Movement Small # Voids 1 1 1 # Bowel Movements 1 Weight 169 kg Patient Weight 02/21/18 06:59 Weight 169 kg Assessment and Plan - Assessment and Plan (1) Sinus arrest Current visit: No Status: Resolved (2) Chronic kidney disease Current visit: No Status: Chronic (3) Essential (primary) hypertension Current visit: No Status: Chronic (4) Mixed hyperlipidemia Current visit: No Status: Chronic (5) Morbid obesity with BMI of 50.0-59.9, adult Current visit: No Status: Chronic (6) PAF (paroxysmal atrial fibrillation) Current visit: No Status: Acute (7) NSVT (nonsustained ventricular tachycardia) Current visit: No Status: Acute - Attestation Attestation Narrative: 02/20/18 13:27 Recommendation After examining the patient I agree with the above assessment. I am involved in the formulation of the patient's plan of care. Hospital Course Summary Disclaimer: The visit summary below is not to be considered part of the above Progress Note.
[2018-02-16] MEDS: SIMETHICONE 80 MG CHEWABLE TABLET PO PRN (20:06)
[2018-02-16] MEDS: APAP/DIPHENHYDRAMINE 500 MG/25 MG TABLET PO SCH (23:27)
[2018-02-16] MEDS: HYDROCODONE/APAP 5mg/325mg TABLET PO PRN (23:30)
[2018-02-17] MEDS: PANTOPRAZOLE 40 MG TABLET PO SCH (06:49)
[2018-02-17] MEDS: AMIODARONE 200 MG TABLET PO SCH (08:30)
[2018-02-17] MEDS: ACETAMINOPHEN 500 MG TABLET PO SCH ×3 (08:30→15:16)
[2018-02-17] MEDS: APIXABAN 2.5 MG TABLET PO SCH ×2 (08:31→21:31)
[2018-02-17] MEDS: HYDROCODONE/APAP 5mg/325mg TABLET PO PRN ×2 (08:31→12:24)
[2018-02-17] MEDS: POLYETHYL GLYCOL 3350 17gm PACKET PO SCH (08:34)
[2018-02-17] MEDS: SENNA + DOCUSATE TABLET PO SCH (08:34)
--- NOTE | 2018-02-17 11:13 | IRU Progress Note ---
- Subjective/Serverity of Illness Date: 02/17/18 Sully was assessed in her room on inpatient rehabilitation. She reports severe pain in her back and down the right leg and hip area. Pain is predominantly in the right hip. She has not fallen. These are chronic pains but seemed be worse since yesterday since she worked hard with therapy. She is concerned about being dismissed. While she has made progress, we would like to see her make greater progress. She reports that she was awake until about 3:30 this morning. She received a Mulga but it did not really help much. She continues to struggle with peripheral edema. She was seen by cardiology and the telemetry was discontinued due to stability. She remains in a normal sinus rhythm. She denies any chest pain and denies shortness of breath. I again discussed with her and her at length the possibility of placement in a nursing facility because of the difficulty in transferring etc. She absolutely refuses. However she also states that she does not want overburden her . Her believes that he can take care of her. We are working on finding a lift at the present time. Exam Vital Signs: Temperature 98.2 F 02/17/18 08:00 Pulse Rate 73 02/17/18 08:00 Respiratory Rate 18 02/17/18 08:00 Blood Pressure 165/71 H 02/17/18 08:00 Pulse Oximetry 94 02/17/18 08:00 Height/Weight/BMI: Height 1.7 m Weight 173 kg - Constitutional Present: moderate distress (both pain and anxiety.), well nourished, well developed, morbidly obese Comments: She is in some degree of pain at present. She also expresses concern and anxiety with regard to going home. - Routine HEENT Exam Head: Present: normocephalic Eye: Present: EOMI ENT: Present: mucous membranes moist, oropharynx clear - Routine Neck Exam Present: supple - Routine Respiratory Exam Present: decreased breath sounds, CTA bilaterally. Absent: wheezes - Routine Cardiovascular Exam Present: RRR, S1, S2, murmur. Absent: S3, S4 - Routine Abdominal Exam Present: soft, normoactive bowel sounds, non distended. Absent: tenderness - Routine Extremities Exam Present: edema (edema is subjectively improved. She is using Geoff wraps on the lower extremities.), normal capillary refill - Routine Skin Exam Present: dry, warm - Routine Neurological Exam Present: alert, oriented X3, CN II-XII intact, moving all extremities - Routine Psychiatric Exam Present: depressed, anxious Results IRU - Labs Labs: Have reviewed chart data, other providers notes as well as her weight which is up another kilogram. IRU A/P (1) Acute on chronic respiratory failure with hypoxemia Current visit: Yes Status: Resolved (2) Acute on chronic kidney failure Qualifiers: Acute renal failure type: unspecified Chronic kidney disease stage: stage 4 (severe) Qualified Code(s): N17.9 - Acute kidney failure, unspecified; N18.4 - Chronic kidney disease, stage 4 (severe) Current visit: Yes Status: Acute We will reassess her renal function prior to dismissal. However it was improved. (3) Diastolic CHF, acute on chronic Current visit: Yes Status: Acute Continues to demonstrate lower extremity edema and reduced exercise tolerance. (4) PAF (paroxysmal atrial fibrillation) Current visit: No Status: Acute Telemetry was discontinued. She was in normal sinus mechanism and remains in a regular rhythm clinically today. She is on Eliquis without known side effects. Also on amiodarone. DVT Prophylaxis: Eliquis Resuscitation Status: Do Not Intubate - Course Hospital Course: Tevin Rice MD: 02/05/18 14:57 Patient is cooperating with physical therapy. Is making an effort to increase her stamina. Pain is controlled and we will reevaluate tomorrow. Medical issues being managed including acute on chronic kidney injury. Continue with physical therapy and occupational therapy support. 02/09/18 10:48 Medically complex. Easily fatigued with therapy. Lasix on hold. Received IV fluids over the weekend. CT scan showed ileus. 02/10/18 10:33 Changed from atenolol to metoprolol yesterday by cardiology. Review of KUB demonstrates gas filled loops likely consistent with ileus. Remains off supplemental oxygen. Easy fatigability persists but improved. 02/11/18 09:49 Easy fatigability. Patient discouraged because she is not walking yet. Bowels are back to baseline. Oxygen requirements are back to baseline. Weight down 3 kg. 02/13/18 11:27 Weight essentially stable. Lasix remains on hold. Lungs are clear with diminished breath sounds. Creatinine slightly improved at 3.0 with estimated GFR 16. 02/16/18 11:46 Weight is stable. Lungs are clear. Creatinine improved at 2.5. Slow progress with therapy. 02/17/18 11:15 Patient is currently frustrated because of recurrence of her pain in the right hip/low back area and right leg. She is concerned about going home prematurely. Discussed possibility of care home placement but she absolutely refuses. - Interventions to Obtain Goals PT Treatment Plan: Balance/Proprioception, Functional Activities, Gait Training , Patient/Family Education, Therapeutic Exercise OT Treatment Plan: ADL (Basic Care), Balance Training, Pt./Family Education, Ther. Exercise for ADL Goals Progress/Modifications: She has developed worsening pain in the low back and right hip and leg area. These pains are chronic better or worse over the last 12-24 hours. Has taken Mulga with minimal to moderate benefit. Encouraged her to work with therapy in order to maintain range of motion and gain additional strength. Discussed with patient and her the issue of transferring to her next level of care and she absolutely refuses skilled care at a nursing facility. However in the same breath she expresses concern about over burning her with transfers etc. Efforts are underway to find a lift for her. Medically she seems stable. She has been in a regular rhythm and telemetry has been discontinued by cardiology. Continue therapy at present.
--- NOTE | 2018-02-17 14:07 | IRU Progress Note ---
- Subjective/Serverity of Illness Date: 02/17/18 This patient requires a sit to stand left as previously described. Reason for this is her severe back pain as well as lower extremity weakness bilaterally. In addition she has acute on chronic diastolic heart failure. She also requires a hospital bed because of the heart failure. See prior note from today for further information regarding this patient's evaluation today. Exam Vital Signs: Temperature 98.2 F 02/17/18 08:00 Pulse Rate 73 02/17/18 08:00 Respiratory Rate 18 02/17/18 08:00 Blood Pressure 165/71 H 02/17/18 08:00 Pulse Oximetry 94 02/17/18 08:00 Height/Weight/BMI: Height 1.7 m Weight 173 kg IRU A/P (1) Acute on chronic respiratory failure with hypoxemia Current visit: Yes Status: Resolved (2) Acute on chronic kidney failure Qualifiers: Acute renal failure type: unspecified Chronic kidney disease stage: stage 4 (severe) Qualified Code(s): N17.9 - Acute kidney failure, unspecified; N18.4 - Chronic kidney disease, stage 4 (severe) Current visit: Yes Status: Acute (3) Diastolic CHF, acute on chronic Current visit: Yes Status: Acute (4) PAF (paroxysmal atrial fibrillation) Current visit: No Status: Acute (5) Pain, low back Qualifiers: Chronicity: chronic Back pain laterality: midline Sciatica presence: with sciatica Current visit: Yes Status: Chronic (6) Decreased strength of lower extremity Current visit: Yes Status: Acute DVT Prophylaxis: Eliquis Resuscitation Status: Do Not Intubate - Course Hospital Course: Tevin Rice MD: 02/05/18 14:57 Patient is cooperating with physical therapy. Is making an effort to increase her stamina. Pain is controlled and we will reevaluate tomorrow. Medical issues being managed including acute on chronic kidney injury. Continue with physical therapy and occupational therapy support. 02/09/18 10:48 Medically complex. Easily fatigued with therapy. Lasix on hold. Received IV fluids over the weekend. CT scan showed ileus. 02/10/18 10:33 Changed from atenolol to metoprolol yesterday by cardiology. Review of KUB demonstrates gas filled loops likely consistent with ileus. Remains off supplemental oxygen. Easy fatigability persists but improved. 02/11/18 09:49 Easy fatigability. Patient discouraged because she is not walking yet. Bowels are back to baseline. Oxygen requirements are back to baseline. Weight down 3 kg. 02/13/18 11:27 Weight essentially stable. Lasix remains on hold. Lungs are clear with diminished breath sounds. Creatinine slightly improved at 3.0 with estimated GFR 16. 02/16/18 11:46 Weight is stable. Lungs are clear. Creatinine improved at 2.5. Slow progress with therapy. 02/17/18 11:15 Patient is currently frustrated because of recurrence of her pain in the right hip/low back area and right leg. She is concerned about going home prematurely. Discussed possibility of fpc placement but she absolutely refuses. - Interventions to Obtain Goals PT Treatment Plan: Balance/Proprioception, Functional Activities, Gait Training , Patient/Family Education, Therapeutic Exercise OT Treatment Plan: ADL (Basic Care), Balance Training, Pt./Family Education, Ther. Exercise for ADL
[2018-02-17] MEDS: FUROSEMIDE 20 MG TABLET PO SCH (14:42)
[2018-02-17] MEDS: APAP/DIPHENHYDRAMINE 500 MG/25 MG TABLET PO SCH (21:30)
[2018-02-18] MEDS: HYDROCODONE/APAP 5mg/325mg TABLET PO PRN (01:24)
[2018-02-18] MEDS: SIMETHICONE 80 MG CHEWABLE TABLET PO PRN ×3 (02:22→20:12)
[2018-02-18] MEDS: PANTOPRAZOLE 40 MG TABLET PO SCH ×2 (05:22→05:50)
[2018-02-18] MEDS: AMIODARONE 200 MG TABLET PO SCH (08:37)
[2018-02-18] MEDS: FUROSEMIDE 20 MG TABLET PO SCH (08:37)
[2018-02-18] MEDS: POLYETHYL GLYCOL 3350 17gm PACKET PO SCH (08:37)
[2018-02-18] MEDS: APIXABAN 2.5 MG TABLET PO SCH ×2 (08:38→21:07)
[2018-02-18] MEDS: SENNA + DOCUSATE TABLET PO SCH (08:38)
[2018-02-18] MEDS: ACETAMINOPHEN 500 MG TABLET PO SCH ×2 (08:38→14:43)
--- NOTE | 2018-02-18 10:51 | IRU Progress Note ---
- Subjective/Serverity of Illness Date: 02/18/18 Sully was evaluated both in the gymnasium area as well as in her room on inpatient rehabilitation. She was doing well earlier this morning. She has several questions about dismissal on Friday. We are awaiting approval of a bariatric hospital bed, heavy-duty wheelchair and a [id number] left. She then went back into her room. She was sitting on the side of her bed and reported that she felt suddenly dizzy. She felt lightheaded and was more short of breath. Her oxygen saturation was normal in the mid to high 90's. Her blood pressure was stable in the 120-1:30 systolic range and her pulse was normal. She denied any chest pain. She just felt "not right." She felt dizzy and lightheaded. Subsequent she did have some nausea. She denies any chest pain whatsoever. She wants to lie back down. She was given Lasix and her weight is indeed down from 173-169 kg. This could be a factor with regard to her lightheadedness. Her creatinine is stable (was 2.5 previously and now 2.6). Otherwise from a functional standpoint she continues to work with therapy but is starting to plateau. Exam Vital Signs: Temperature 98.3 F 02/18/18 08:00 Pulse Rate 75 02/18/18 08:00 Respiratory Rate 18 02/18/18 08:00 Blood Pressure 151/71 H 02/18/18 08:00 Pulse Oximetry 93 02/18/18 08:00 Height/Weight/BMI: Height 1.7 m Weight 169 kg - Constitutional Present: mild distress (lightheaded), well nourished, well developed, morbidly obese - Routine HEENT Exam Head: Present: normocephalic Eye: Present: EOMI ENT: Present: mucous membranes moist, oropharynx clear - Routine Neck Exam Present: supple - Routine Respiratory Exam Present: CTA bilaterally. Absent: wheezes Comments: While she complains of shortness of breath, she is somewhat tachypnea. She appears to be anxious. She denies any chest pain. Her lungs remain clear bilaterally. - Routine Cardiovascular Exam Present: RRR, S1, S2. Absent: murmur Comments: Her cardiac exam remains benign. She is in a regular rhythm and is not tachycardic at present. - Routine Abdominal Exam Present: soft, normoactive bowel sounds, non distended. Absent: tenderness - Routine Extremities Exam Present: edema, normal capillary refill - Routine Skin Exam Present: dry, warm - Routine Neurological Exam Present: alert, oriented X3, CN II-XII intact She has equal strength bilaterally in the upper and lower extremities with regard to exam at present. In general she has lower extremity weakness however when it comes to transfers and standing etc. There is no facial droop. Her speech is fluent. She appears to be anxious. - Routine Psychiatric Exam Present: normal affect, anxious Results IRU - Labs Labs: I reviewed her recent labs including today's labs. IRU A/P (1) Acute on chronic respiratory failure with hypoxemia Current visit: Yes Status: Resolved (2) Acute on chronic kidney failure Qualifiers: Acute renal failure type: unspecified Chronic kidney disease stage: stage 4 (severe) Qualified Code(s): N17.9 - Acute kidney failure, unspecified; N18.4 - Chronic kidney disease, stage 4 (severe) Current visit: Yes Status: Acute Renal function is stable although creatinine is up slightly at 2.6. (3) Diastolic CHF, acute on chronic Current visit: Yes Status: Acute Patient's weight is down from 173 down to 169 kg. She has received Lasix. (4) PAF (paroxysmal atrial fibrillation) Current visit: No Status: Acute (5) Pain, low back Qualifiers: Chronicity: chronic Back pain laterality: midline Sciatica presence: with sciatica Current visit: Yes Status: Chronic (6) Decreased strength of lower extremity Current visit: Yes Status: Acute (7) Lightheadedness Current visit: Yes Status: Acute Patient has developed sudden lightheadedness this morning. She was sitting on the side of her bed when this started. She has stable vital signs including blood pressure, pulse and oximetry. She has no chest pain. There are no new neurologic changes. She does appear to be anxious. We will continue to monitor carefully. It is noted that her weight is down which could be a factor. DVT Prophylaxis: Eliquis Resuscitation Status: Do Not Intubate - Course Hospital Course: Tevin Rice MD: 02/05/18 14:57 Patient is cooperating with physical therapy. Is making an effort to increase her stamina. Pain is controlled and we will reevaluate tomorrow. Medical issues being managed including acute on chronic kidney injury. Continue with physical therapy and occupational therapy support. 02/09/18 10:48 Medically complex. Easily fatigued with therapy. Lasix on hold. Received IV fluids over the weekend. CT scan showed ileus. 02/10/18 10:33 Changed from atenolol to metoprolol yesterday by cardiology. Review of KUB demonstrates gas filled loops likely consistent with ileus. Remains off supplemental oxygen. Easy fatigability persists but improved. 02/11/18 09:49 Easy fatigability. Patient discouraged because she is not walking yet. Bowels are back to baseline. Oxygen requirements are back to baseline. Weight down 3 kg. 02/13/18 11:27 Weight essentially stable. Lasix remains on hold. Lungs are clear with diminished breath sounds. Creatinine slightly improved at 3.0 with estimated GFR 16. 02/16/18 11:46 Weight is stable. Lungs are clear. Creatinine improved at 2.5. Slow progress with therapy. 02/17/18 11:15 Patient is currently frustrated because of recurrence of her pain in the right hip/low back area and right leg. She is concerned about going home prematurely. Discussed possibility of intermediate placement but she absolutely refuses. 02/18/18 10:54 Lightheadedness this morning. Vital signs are stable. She is concerned about going home later this week. Lower extremity weakness continues. - Interventions to Obtain Goals PT Treatment Plan: Balance/Proprioception, Functional Activities, Gait Training , Patient/Family Education, Therapeutic Exercise OT Treatment Plan: ADL (Basic Care), Balance Training, Pt./Family Education, Ther. Exercise for ADL Goals Progress/Modifications: Patient has developed acute lightheadedness this morning. Uncertain etiology. Neurologically she is fine with no unilateral weakness. She appears to be worried and anxious. She is somewhat tachypnea. Her oximetry is good. Her vital signs are stable. She denies any chest pain. Her exam is otherwise negative. We will continue to monitor carefully. It is noted that her weight is down which is a good thing. However this could be a factor with her lightheadedness. We'll discuss with hospitalist service as well. Typical blood pressures have been in the 150 860 range and today it is 120-125 systolic.
[2018-02-18] MEDS: PROCHLORPERAZINE 5 MG TABLET PO PRN ×2 (10:55→18:17)
--- NOTE | 2018-02-18 17:23 | Progress Note ---
- Date 02/18/18 Subjective: Sully was resting in bed, CPAP in place. She states that today she had a little bit of a rougher day and got nauseated and short of breath with activity. She admits that she does occasionally have the same symptoms with activity at home. Her symptoms are currently better. She is nervous about going home on Friday. The plan is to go home with home health, and she is concerned that her won't be able to help her enough. Objective Vital signs: Temperature 98.3 F 02/18/18 15:18 Pulse Rate 72 02/18/18 15:18 Respiratory Rate 18 02/18/18 15:18 Blood Pressure 150/66 H 02/18/18 15:18 Pulse Oximetry 96 02/18/18 15:18 Rhythm: Normal Sinus Rhythm Height/Weight/BMI: Height 1.7 m Weight 169 kg - Constitutional Present: no acute distress, well nourished, well developed, morbidly obese - Routine HEENT Exam Head: Present: normocephalic Eye: Present: PERRL. Absent: conjunctival icterus, scleral injection Comments: nasal cpap - Routine Respiratory Exam Present: CTA bilaterally - Routine Cardiovascular Exam Present: RRR, S1, S2 - Routine Abdominal Exam Present: soft, normoactive bowel sounds, non distended, non tender - Routine Extremities Exam Present: edema - Routine Skin Exam Present: intact, dry, warm - Routine Neurological Exam Present: alert, oriented X3 - Routine Psychiatric Exam Present: normal thought process, cooperative Results - Labs CBC & Chem 7: 02/16/18 04:42 02/18/18 04:52 Assessment and Plan (1) Acute on chronic respiratory failure with hypoxemia Current visit: Yes Status: Resolved Assessment and Plan: Assessment: Generalized debility secondary to acute prolonged illness. Nausea - onset 02/01/18 Acute hypoxemic and hypercapnic respiratory failure with pulmonary edema. Her pulmonary edema is improved at this time but she continues to demonstrate evidence of dyspnea with activity and requires occasional oxygen supplementation. Diastolic heart failure, acute on chronic with pulmonary edema - EF 45-50%. Acute on chronic kidney injury. Morbid obesity - BMI 58. Diabetes mellitus type 2, not on long-term insulin Obstructive sleep apnea with obesity/hypoventilation syndrome on home BiPAP Chronic back pain with osteoarthritis Slow transit constipation Cardiac dysrhythmias characterized by paroxysmal atrial fibrillation and nonsustained ventricular tachycardia. Patient has now been started on amiodarone as of yesterday. Chronic kidney disease-stage IV (baseline SCr 2.5) Hypercholesterolemia Hypertension Plan: Creatinine at 2.6. Lasix was restarted at 20 mg yesterday. Her weight today has decreased to [address] Lasix on hold and recheck labs tomorrow morning Cardiology discontinued telemetry, as her rate has been stable. Patient reports planning on discharge home with home health on Friday. DVT Prophylaxis: Eliquis Resuscitation Status: Do Not Intubate - Physician Narrative Narrative: Date: 02/18/18 Time: 171 Hospital Course Summary Disclaimer: The visit summary below is not to be considered part of the above Progress Note. Hospital Course: 02/05/18 BUN up to 60 and creatinine increased to 3.6. Lasix put on hold though she already received it this am. The hospitalist staff determined her dry weight to be around 169 kg; this am she was 167. Will give NS 500 mL bolus. Recheck BMP in am. Breathing stable on room air today - yesterday dropped briefly into the 80s. Tele - sinus. Continue amiodarone/Eliquis/BB per cardiology. 02/07 Slight improvement in renal function with BUN of 63 and creatinine of 3.6. Discussed with Dr. Clarke: continue IVF and continue to hold Lasix. Weight is trending up but pt denies dyspnea. Will make compazine PRN instead of scheduled since nausea has resolved. Plan: 02/08/18 Patient continues to report some abdominal discomfort and distention. Possible mild ileus on CT done earlier in the week. Will repeat KUB in AM. May need to add Dulcolax OK if persists. Home BIpap may be contributing to excess air in GI system. CT reviewed- no overt constipation. HR is controlled on Amiodarone. SCR mildly decreased with IVF. Will hold off on further due to recurrent issues with fluid overload. HGB is trending down a little- monitor closely. Plan repeat labs in AM for reassessment.
[2018-02-18] MEDS ORDERED: PROCHLORPERAZINE 5 MG TABLET PO PRN (18:42)
[2018-02-18] MEDS: APAP/DIPHENHYDRAMINE 500 MG/25 MG TABLET PO SCH (21:04)
[2018-02-19] MEDS: HYDROCODONE/APAP 5mg/325mg TABLET PO PRN ×3 (00:04→21:18)
[2018-02-19] MEDS: SIMETHICONE 80 MG CHEWABLE TABLET PO PRN (00:04)
[2018-02-19] MEDS: PANTOPRAZOLE 40 MG TABLET PO SCH (06:33)
[2018-02-19] MEDS: APIXABAN 2.5 MG TABLET PO SCH ×2 (08:43→21:17)
[2018-02-19] MEDS: POLYETHYL GLYCOL 3350 17gm PACKET PO SCH (08:43)
[2018-02-19] MEDS: SENNA + DOCUSATE TABLET PO SCH (08:44)
[2018-02-19] MEDS: AMIODARONE 200 MG TABLET PO SCH (08:44)
[2018-02-19] MEDS: ACETAMINOPHEN 500 MG TABLET PO SCH ×2 (08:47→14:32)
[2018-02-20] MEDS: HYDROCODONE/APAP 5mg/325mg TABLET PO PRN ×3 (03:39→21:23)
[2018-02-20] MEDS: PANTOPRAZOLE 40 MG TABLET PO SCH ×2 (04:55→08:11)
[2018-02-20] MEDS: SENNA + DOCUSATE TABLET PO SCH (08:28)
[2018-02-20] MEDS: POLYETHYL GLYCOL 3350 17gm PACKET PO SCH (08:29)
[2018-02-20] MEDS: AMIODARONE 200 MG TABLET PO SCH (08:29)
[2018-02-20] MEDS: APIXABAN 2.5 MG TABLET PO SCH ×2 (08:29→21:09)
[2018-02-20] MEDS: ACETAMINOPHEN 500 MG TABLET PO SCH ×2 (08:29→16:28)
--- NOTE | 2018-02-20 11:13 | IRU Progress Note ---
- Subjective/Serverity of Illness Date: 02/20/18 Sully was interviewed and examined in her room on inpatient rehabilitation. She reports excessive fatigue. Anticipation was for her to go home today but unfortunate some equipment is not yet available. She denies chest pain. She does have chronic dyspnea. Also continues to report low back pain and right hip pain which she has had previously. Her weight is down to 137 pounds. Her creatinine is up a bit at 2.7. Potassium is normal. This is all reviewed with the patient. She reports that her appetite is adequate and that her bowels are stable. Exam Vital Signs: Temperature 97.6 F 02/20/18 07:25 Pulse Rate 70 02/20/18 07:25 Respiratory Rate 18 02/20/18 07:25 Blood Pressure 149/70 H 02/20/18 07:25 Pulse Oximetry 94 02/20/18 07:25 Height/Weight/BMI: Height 1.7 m Weight 167 kg - Constitutional Present: well nourished, well developed, morbidly obese Comments: According to therapy, the patient has been reluctant to participate due to the fact that she was going home soon. She requires a lot of motivation. She is easily fatigued. - Routine HEENT Exam Eye: Present: EOMI ENT: Present: mucous membranes moist, oropharynx clear - Routine Respiratory Exam Present: decreased breath sounds, CTA bilaterally. Absent: wheezes - Routine Cardiovascular Exam Present: RRR, S1, S2. Absent: murmur - Routine Abdominal Exam Present: soft, normoactive bowel sounds, non distended. Absent: tenderness - Routine Extremities Exam Present: no edema, normal capillary refill - Routine Skin Exam Present: dry, warm - Routine Neurological Exam Present: alert, oriented X3, CN II-XII intact - Routine Psychiatric Exam Present: normal affect, anxious Results IRU - Labs Labs: I reviewed other providers notes as well as labs etc. IRU A/P (1) Acute on chronic respiratory failure with hypoxemia Current visit: Yes Status: Resolved (2) Acute on chronic kidney failure Qualifiers: Acute renal failure type: unspecified Chronic kidney disease stage: stage 4 (severe) Qualified Code(s): N17.9 - Acute kidney failure, unspecified; N18.4 - Chronic kidney disease, stage 4 (severe) Current visit: Yes Status: Acute EGFR remains at 18 although creatinine is slightly elevated at 2.7. Her weight is down with diuresis. Anticipation is for her to receive Lasix only a few days weekly apparently. (3) Diastolic CHF, acute on chronic Current visit: Yes Status: Acute (4) PAF (paroxysmal atrial fibrillation) Current visit: No Status: Acute Clinically she has had no further episodes of atrial fibrillation. Telemetry has been discontinued. Remains on Eliquis. (5) Pain, low back Qualifiers: Chronicity: chronic Back pain laterality: midline Sciatica presence: with sciatica Current visit: Yes Status: Chronic (6) Decreased strength of lower extremity Current visit: Yes Status: Acute Continues to report markedly decreased strength in the lower extremities. Therapy continues to work with patient and encourages her to work on strengthening exercises for the lower extremities. (7) Lightheadedness Current visit: Yes Status: Acute DVT Prophylaxis: Eliquis Resuscitation Status: Do Not Intubate - Course Hospital Course: Tevin Rice MD: 02/05/18 14:57 Patient is cooperating with physical therapy. Is making an effort to increase her stamina. Pain is controlled and we will reevaluate tomorrow. Medical issues being managed including acute on chronic kidney injury. Continue with physical therapy and occupational therapy support. 02/09/18 10:48 Medically complex. Easily fatigued with therapy. Lasix on hold. Received IV fluids over the weekend. CT scan showed ileus. 02/10/18 10:33 Changed from atenolol to metoprolol yesterday by cardiology. Review of KUB demonstrates gas filled loops likely consistent with ileus. Remains off supplemental oxygen. Easy fatigability persists but improved. 02/11/18 09:49 Easy fatigability. Patient discouraged because she is not walking yet. Bowels are back to baseline. Oxygen requirements are back to baseline. Weight down 3 kg. 02/13/18 11:27 Weight essentially stable. Lasix remains on hold. Lungs are clear with diminished breath sounds. Creatinine slightly improved at 3.0 with estimated GFR 16. 02/16/18 11:46 Weight is stable. Lungs are clear. Creatinine improved at 2.5. Slow progress with therapy. 02/17/18 11:15 Patient is currently frustrated because of recurrence of her pain in the right hip/low back area and right leg. She is concerned about going home prematurely. Discussed possibility of jail placement but she absolutely refuses. 02/18/18 10:54 Lightheadedness this morning. Vital signs are stable. She is concerned about going home later this week. Lower extremity weakness continues. 02/20/18 11:14 Weight is down and creatinine slightly up at 2.7. Dyspnea is at baseline levels with activity. No clinical evidence of arrhythmia. Requires motivation and verbal cues to participate with therapy. Easy fatigability. - Interventions to Obtain Goals PT Treatment Plan: Balance/Proprioception, Functional Activities, Gait Training , Patient/Family Education, Therapeutic Exercise OT Treatment Plan: ADL (Basic Care), Balance Training, Pt./Family Education, Ther. Exercise for ADL Goals Progress/Modifications: Today I spent quite a bit of time reviewing the patient's labs and overall progress with the patient. I reviewed her creatinine, her weight, her potassium etc. Questions were addressed regarding Lasix. It is noted that she requires quite a bit of encouragement to participate with therapy. She is working on standing although finds this difficult. Unable to dismiss today until we get a sit to stand left. has been instructed in use of this left but the left is not available even though it was requested from [facility] a couple of days ago. Arrangements have been made for home health as well. I again discussed with the patient possibility of placement in a facility but she absolutely refuses. Medically she seems stable at this time.
[2018-02-20] MEDS: SIMETHICONE 80 MG CHEWABLE TABLET PO PRN ×2 (13:25→17:59)
--- NOTE | 2018-02-20 13:59 | Discharge Summary ---
Discharge Information Date of admission: 02/03/18 14:30 Anticipated date of discharge: 02/20/18 Attending Physician: Tevin Rice MD Primary care physician: Amanda Kan APRN Consults: 02/03/18 14:41 Physician Consult [CONS] Routine Consulting Provider: Spencer Johnson Reason For Exam: bradycardia, pauses, ?Vtach Ordering Provider has Notified Hacksaw Inspector: Yes Comment: I will notify 02/03/18 15:11 Physician Consult [CONS] Routine Consulting Provider: Shravan Garcia Reason For Exam: medical management Ordering Provider has Notified Hacksaw Inspector: No - Discharge Diagnosis (1) Acute on chronic respiratory failure with hypoxemia Status: Resolved (2) Acute on chronic kidney failure Status: Acute (3) Diastolic CHF, acute on chronic Status: Acute (4) PAF (paroxysmal atrial fibrillation) Status: Acute (5) Pain, low back Status: Chronic (6) Decreased strength of lower extremity Status: Acute (7) Lightheadedness Status: Acute 1. Acute on chronic respiratory failure with hypoxemia 2. Acute on chronic kidney failure 3. Acute on chronic diastolic congestive heart failure 4. Paroxysmal atrial fibrillation 5. Low back pain, chronic 6. Morbid obesity 7. Decreased strength of lower extremities - Laboratory Labs: 02/16/18 04:42 02/20/18 04:52 History of Present Illness HPI: Ms. Arshad is a very pleasant 67-year-old female initially admitted to the [facility] with increasing shortness of breath. She was seen by Dr. Johnson. Echocardiogram demonstrated reduced ejection fraction although difficult to quantify in view of her body habitus and quality of study. She has stage IV chronic kidney disease. She was able to be diuresed from 176 kg and down to 169 kg while on acute care. She was on telemetry on acute care and this did demonstrate paroxysmal atrial fibrillation and at one point appeared to have nonsustained ventricular tachycardia. She was started on amiodarone by Dr. Johnson. There was an episode of sinus arrest. She was started on Eliquis on . Patient has a diagnosis of acute on chronic hypoxemic and hypercapnic respiratory failure, diastolic heart failure acute on chronic with pulmonary edema, acute on chronic kidney injury, morbid obesity, diabetes mellitus type 2 not on long-term insulin and obstructive sleep apnea. She has chronic back pain with osteoarthritis. She had the new diagnoses of paroxysmal atrial fibrillation and nonsustained ventricular tachycardia. The patient developed multiple functional deficits and was transferred to acute inpatient rehabilitation on 02/03/2018 for a multidisciplinary approach to her recovery. Hospital Course This is a general summary of the patient's hospital course. For more details refer to the complete medical record. The patient was admitted to acute inpatient rehabilitation on 02/03/2018. She was followed by the hospitalist service, Dr. Johnson, and Dr. Rice, Garbage Pick Up Worker. She was monitored on telemetry for a time and for the most part was in sinus mechanism. She tolerated the Eliquis and amiodarone without difficulty. Her blood sugars were monitored. Initially her diuresis was held because of elevated creatinine. Her initial creatinine was 2.9 on 02/04/2018. It kb to a high of 3.7 on 02/06/2018 and was down to 2.6 as of 02/18/2018. Low-dose of Lasix was restarted at that time. She continued to require oxygen at night but did not require further oxygen during the daytime. She complained of abdominal discomfort and an abdominal CT scan was performed on 02/06/2018. This showed a mild ileus. The patient struggled with episodes of loose stools as well as constipation. Ultimately they were adequately controlled. Patient's initial weight on rehabilitation was 168.9 kg. She reached a maximum of 173 kg on 02/17/2018, then dropped to 169 kg on 02/18/2018. Her final weight on 02/20/2018 was 169 kg. Her initial creatinine was 2.9 rising to a high of 3.6 on 01/30/2018. Most recent creatinine is 2.7 on 02/20/18. The following levels of functional competence are to be considered preliminary information. The reader is encouraged to refer to actual therapy notes and reports for specific details. She was followed by physical therapy and had the following functional levels at the time of conclusion of therapy: The TMs were made at standing but she was continuing to experience substantial lower extremity weakness. She was not able to ambulate. Patient required maximum assistance for transfers and in fact required a sit to stand left. On a temporary basis her has been instructed in use of a for your left and telemetry sit to stand left can be obtained from the [employer] She is able to ambulate in a wheelchair however. She was followed by occupational therapy and have the following functional levels at the time of conclusion of therapy: She was able to perform upper body dressing and standby assist level. Lower body dressing required moderate assistance. Toilet transfers require total assistance. Patient clearly requires a heavy-duty bariatric hospital bed in view of her morbid obesity and diastolic heart failure with recent acute on chronic respiratory failure with hypoxemia. In addition she requires a sit to stand left in view of her lower extremity weakness, chronic back pain and generalized debility with morbid obesity. She also requires a heavy-duty wheelchair for mobilization. She is unable to walk at this time. Family training was undertaken. She was dismissed to her home on Friday, 2017. It is noted that we did provide a prescription for tramadol 50 mg #30 with no refills. Hospital course: 02/05/18 BUN up to 60 and creatinine increased to 3.6. Lasix put on hold though she already received it this am. The hospitalist staff determined her dry weight to be around 169 kg; this am she was 167. Will give NS 500 mL bolus. Recheck BMP in am. Breathing stable on room air today - yesterday dropped briefly into the 80s. Tele - sinus. Continue amiodarone/Eliquis/BB per cardiology. 02/07 Slight improvement in renal function with BUN of 63 and creatinine of 3.6. Discussed with Dr. Clarke: continue IVF and continue to hold Lasix. Weight is trending up but pt denies dyspnea. Will make compazine PRN instead of scheduled since nausea has resolved. Plan: 02/08/18 Patient continues to report some abdominal discomfort and distention. Possible mild ileus on CT done earlier in the week. Will repeat KUB in AM. May need to add Dulcolax TN if persists. Home BIpap may be contributing to excess air in GI system. CT reviewed- no overt constipation. HR is controlled on Amiodarone. SCR mildly decreased with IVF. Will hold off on further due to recurrent issues with fluid overload. HGB is trending down a little- monitor closely. Plan repeat labs in AM for reassessment. Time spent with patient: greater than 35 minutes Resuscitation Status: Do Not Intubate Discharge Plan - Med Rec/Dispo Referrals/Follow Up: Spencer Johnson MD [Physician] - 5-6 Weeks (f/u with Dr. Katelynn Johnson) Amanda Kan JUTE BAG CLIPPER [Primary Care Provider] - ([facility] will notify patient of date and time of Hosp follow-up. ) Jake Instructions: Acute Kidney Injury (DC), Fall Prevention (DC) Prescriptions: New Amiodarone [Pacerone] 200 mg PO DAILY #30 tab Apixaban [Eliquis] 2.5 mg PO BID #60 tab Furosemide [Lasix 20 mg Tab] 20 mg PO DAILY PRN tab PRN Reason: fluid retention Metoprolol Tartrate [Lopressor] 50 mg PO BIDWM #60 tab NIFEdipine XL [Procardia Xl] 60 mg PO DAILY #30 tab Nystatin Powder [Mycostatin] 1 applicatio TP TID #1 bottle Senna + Docusate [Senna Plus Tablet] 2 tab PO DAILY tab Simethicone [Mylicon] 80 mg PO Q2H PRN tab.chew PRN Reason: Gas Cholecalciferol [Vit. D-3] 1,000 unit PO DAILY tab Pantoprazole Tab [Protonix Tab] 40 mg PO ACB #30 tab Continue Linaclotide [Linzess] 145 mcg PO DAILY Peg 3350 238 G Bottle [Miralax] 17 gm PO DAILY Acetaminophen/Diphenhydramine [Acetaminophen Pm Caplet] 2 tab PO HS Tramadol [Ultram] 50 mg PO BID PRN #30 tab PRN Reason: Pain Discontinued Aspirin [Aspirin EC] 162 mg PO BID Furosemide [Lasix 40 mg Tab] 40 mg PO DAILY - Disposition 01 Discharged Home, Self-Care - Dismissal Complete Discharge Instructions are:: Complete
--- NOTE | 2018-02-20 14:13 | Letter to Referring Physician ---
Dear Amanda, This is a brief note to bring you up-to-date on the status of Sully Arshad and her stay on the acute inpatient rehabilitation unit at [facility]. As you are likely aware, this patient was admitted to the [facility] on 01/14/18 for acute dyspnea/acute respiratory failure and diastolic heart failure, acute on chronic. The patient was stabilized while on the acute level and admitted to inpatient rehabilitation unit at [facility] on February 03, 2018. While on inpatient rehabilitation, this patient was seen by occupational therapy and physical therapy and improved overall in their functional ability. However, she remained quite debilitated with lower extremity weakness, back pain and generalized debility. We offered the possibility of placement in a nursing facility but she absolutely refuses. We also monitored and managed the patient's atrial fib, respiratory failure and renal failure with diastolic heart failure while on Acute Rehab. Please see a copy of the history and physical examination as well as discharge summary faxed separately for further details. Please note that her final weight was 169 kg on 02/20/2018. Her final creatinine was 2.7. Her potassium is normal. She will require follow-up of her electrolytes in this regard. Thank you for allowing us to be involved in this nice patient's care. Please contact me directly should you have any questions regarding their stay on the inpatient rehabilitation unit. Sincerely, Tevin Rice M.D.
[2018-02-21] MEDS: HYDROCODONE/APAP 5mg/325mg TABLET PO PRN ×2 (01:15→20:34)
[2018-02-21] MEDS: PANTOPRAZOLE 40 MG TABLET PO SCH (06:36)
[2018-02-21] MEDS: POLYETHYL GLYCOL 3350 17gm PACKET PO SCH (08:15)
[2018-02-21] MEDS: APIXABAN 2.5 MG TABLET PO SCH ×2 (08:19→20:34)
[2018-02-21] MEDS: SENNA + DOCUSATE TABLET PO SCH (08:19)
[2018-02-21] MEDS: ACETAMINOPHEN 500 MG TABLET PO SCH ×2 (08:20→14:15)
[2018-02-21] MEDS: AMIODARONE 200 MG TABLET PO SCH (08:20)
[2018-02-21] MEDS: SIMETHICONE 80 MG CHEWABLE TABLET PO PRN ×2 (12:20→20:39)
[2018-02-22] MEDS: PANTOPRAZOLE 40 MG TABLET PO SCH ×2 (04:41→08:45)
[2018-02-22] MEDS: SIMETHICONE 80 MG CHEWABLE TABLET PO PRN ×2 (04:41→19:13)
[2018-02-22] MEDS: HYDROCODONE/APAP 5mg/325mg TABLET PO PRN ×3 (04:41→21:03)
[2018-02-22] MEDS: POLYETHYL GLYCOL 3350 17gm PACKET PO SCH (08:45)
[2018-02-22] MEDS: SENNA + DOCUSATE TABLET PO SCH (08:45)
[2018-02-22] MEDS: AMIODARONE 200 MG TABLET PO SCH (08:46)
[2018-02-22] MEDS: ACETAMINOPHEN 500 MG TABLET PO SCH ×2 (08:47→14:22)
[2018-02-22] MEDS: APIXABAN 2.5 MG TABLET PO SCH ×2 (08:47→21:02)
--- NOTE | 2018-02-22 09:38 | Progress Note ---
- Date 02/22/18 Subjective: Sully was seen at breakfast time. She is feeling better today. She reports yesterday she was nauseated, but she feels well this morning. She denies feeling short of breath or having any chest pain. Her bowels have returned to baseline and she denies any cramping. She anticipates discharge home tomorrow. She asks appropriate questions about her BUN and creatinine. Objective Vital signs: Temperature 97.8 F 02/21/18 23:28 Pulse Rate 66 02/21/18 23:28 Respiratory Rate 20 02/21/18 23:28 Blood Pressure 124/71 02/21/18 23:28 Pulse Oximetry 93 02/21/18 23:28 Rhythm: Normal Sinus Rhythm Height/Weight/BMI: Height 1.7 m Weight 168 kg - Constitutional Present: no acute distress, well nourished, well developed, morbidly obese - Routine HEENT Exam Head: Present: normocephalic Eye: Present: PERRL. Absent: conjunctival icterus, scleral injection - Routine Respiratory Exam Present: CTA bilaterally - Routine Cardiovascular Exam Present: RRR, S1, S2 - Routine Abdominal Exam Present: soft, normoactive bowel sounds, non distended, non tender - Routine Extremities Exam Present: edema (bilateral lower extremities, Geoff wraps have not yet been applied ) - Routine Skin Exam Present: intact, dry, warm, ecchymosis (bilateral arms) - Routine Neurological Exam Present: alert, oriented X3, moving all extremities, normal speech - Routine Psychiatric Exam Present: normal affect, normal thought process, cooperative Results - Labs CBC & Chem 7: 02/22/18 04:58 02/22/18 04:58 Assessment and Plan (1) Acute on chronic respiratory failure with hypoxemia Current visit: Yes Status: Resolved Assessment and Plan: Assessment: Generalized debility secondary to acute prolonged illness. Nausea - onset 02/01/18 Acute hypoxemic and hypercapnic respiratory failure with pulmonary edema. Her pulmonary edema is improved at this time but she continues to demonstrate evidence of dyspnea with activity and requires occasional oxygen supplementation. Diastolic heart failure, acute on chronic with pulmonary edema - EF 45-50%. Acute on chronic kidney injury. Morbid obesity - BMI 58. Diabetes mellitus type 2, not on long-term insulin Obstructive sleep apnea with obesity/hypoventilation syndrome on home BiPAP Chronic back pain with osteoarthritis Slow transit constipation Cardiac dysrhythmias characterized by paroxysmal atrial fibrillation and nonsustained ventricular tachycardia. Patient has now been started on amiodarone as of yesterday. Chronic kidney disease-stage IV (baseline SCr 2.5) Hypercholesterolemia Hypertension Plan: Labs today are stable with BUN of 36 and creatinine of 2.6. Sodium is slightly elevated at 147. Her weight has been stable for the last few days while off of Lasix. We discussed the delicate balance between diuretic use and chronic kidney disease. At this time, we have decided to send her home on Lasix 20 mg to take Friday and . Will need to follow labs closely. Anticipate discharge tomorrow. Home with home health. Resuscitation Status: Do Not Intubate - Physician Narrative Narrative: Date: 02/22/18 Time: 0937 Hospital Course Summary Disclaimer: The visit summary below is not to be considered part of the above Progress Note. Hospital Course: 02/05/18 BUN up to 60 and creatinine increased to 3.6. Lasix put on hold though she already received it this am. The hospitalist staff determined her dry weight to be around 169 kg; this am she was 167. Will give NS 500 mL bolus. Recheck BMP in am. Breathing stable on room air today - yesterday dropped briefly into the 80s. Tele - sinus. Continue amiodarone/Eliquis/BB per cardiology. 02/07 Slight improvement in renal function with BUN of 63 and creatinine of 3.6. Discussed with Dr. Clarke: continue IVF and continue to hold Lasix. Weight is trending up but pt denies dyspnea. Will make compazine PRN instead of scheduled since nausea has resolved. Plan: 02/08/18 Patient continues to report some abdominal discomfort and distention. Possible mild ileus on CT done earlier in the week. Will repeat KUB in AM. May need to add Dulcolax [place] if persists. Home BIpap may be contributing to excess air in GI system. CT reviewed- no overt constipation. HR is controlled on Amiodarone. SCR mildly decreased with IVF. Will hold off on further due to recurrent issues with fluid overload. HGB is trending down a little- monitor closely. Plan repeat labs in AM for reassessment. 02/22 Labs today are stable with BUN of 36 and creatinine of 2.6. Sodium is slightly elevated at 147. Her weight has been stable for the last few days while off of Lasix. We discussed the delicate balance between diuretic use and chronic kidney disease. At this time, we have decided to send her home on Lasix 20 mg to take Friday and . Will need to follow labs closely. Anticipate discharge tomorrow. Home with home health.
[2018-02-23] MEDS: HYDROCODONE/APAP 5mg/325mg TABLET PO PRN (02:29)
[2018-02-23] MEDS: PANTOPRAZOLE 40 MG TABLET PO SCH (06:26)
[2018-02-23 06:58] VITALS: BP 138/74; PULSE 62; RESP 18; TEMP 98.5; O2SAT 94
[2018-02-23] MEDS: SENNA + DOCUSATE TABLET PO SCH (08:34)
[2018-02-23] MEDS: APIXABAN 2.5 MG TABLET PO SCH (08:34)
[2018-02-23] MEDS: AMIODARONE 200 MG TABLET PO SCH (08:34)
[2018-02-23] MEDS: ACETAMINOPHEN 500 MG TABLET PO SCH (08:34)
[2018-02-23] MEDS: POLYETHYL GLYCOL 3350 17gm PACKET PO SCH (08:35)
--- NOTE | 2018-02-23 10:10 | IRU Progress Note ---
- Subjective/Serverity of Illness Date: 02/23/18 Patient is discharge was delayed due to lack of hospital bed at home. According to her it will be delivered this morning at 10 AM and she will be dismissed at that time. She is doing well otherwise. She will go home on Lasix twice weekly or as needed. She denies any change in symptoms. Denies any change in shortness of breath. She has had no chest pain. Exam Vital Signs: Temperature 98.5 F 02/23/18 06:56 Pulse Rate 62 02/23/18 06:56 Respiratory Rate 18 02/23/18 06:56 Blood Pressure 138/74 02/23/18 06:56 Pulse Oximetry 94 02/23/18 06:56 Height/Weight/BMI: Height 1.7 m Weight 169 kg - Constitutional Present: no acute distress, well nourished, well developed, morbidly obese, cooperative - Routine HEENT Exam Eye: Present: EOMI ENT: Present: mucous membranes moist, oropharynx clear - Routine Neck Exam Present: supple - Routine Respiratory Exam Present: CTA bilaterally. Absent: wheezes - Routine Cardiovascular Exam Present: RRR, S1, S2. Absent: murmur - Routine Abdominal Exam Present: soft, normoactive bowel sounds, non distended. Absent: tenderness - Routine Extremities Exam Present: no edema, normal capillary refill - Routine Skin Exam Present: dry, warm - Routine Neurological Exam Present: alert, oriented X3, CN II-XII intact - Routine Psychiatric Exam Present: normal affect Results IRU - Labs Labs: I reviewed today's lab results. Creatinine is 2.6. IRU A/P (1) Acute on chronic respiratory failure with hypoxemia Current visit: Yes Status: Resolved (2) Acute on chronic kidney failure Qualifiers: Acute renal failure type: unspecified Chronic kidney disease stage: stage 4 (severe) Qualified Code(s): N17.9 - Acute kidney failure, unspecified; N18.4 - Chronic kidney disease, stage 4 (severe) Current visit: Yes Status: Acute Creatinine seems stable at around 2.6. It is worsened when she requires more Lasix of course. Anticipate safe transition to home with Lasix being given twice weekly. (3) Diastolic CHF, acute on chronic Current visit: Yes Status: Acute (4) PAF (paroxysmal atrial fibrillation) Current visit: No Status: Acute Patient will go home with Eliquis which she has been receiving here. This is a new medication for her. (5) Pain, low back Qualifiers: Chronicity: chronic Back pain laterality: midline Sciatica presence: with sciatica Current visit: Yes Status: Chronic (6) Decreased strength of lower extremity Current visit: Yes Status: Acute (7) Lightheadedness Current visit: Yes Status: Acute DVT Prophylaxis: Eliquis Resuscitation Status: Do Not Intubate - Course Hospital Course: Tevin Rice MD: 02/05/18 14:57 Patient is cooperating with physical therapy. Is making an effort to increase her stamina. Pain is controlled and we will reevaluate tomorrow. Medical issues being managed including acute on chronic kidney injury. Continue with physical therapy and occupational therapy support. 02/09/18 10:48 Medically complex. Easily fatigued with therapy. Lasix on hold. Received IV fluids over the weekend. CT scan showed ileus. 02/10/18 10:33 Changed from atenolol to metoprolol yesterday by cardiology. Review of KUB demonstrates gas filled loops likely consistent with ileus. Remains off supplemental oxygen. Easy fatigability persists but improved. 02/11/18 09:49 Easy fatigability. Patient discouraged because she is not walking yet. Bowels are back to baseline. Oxygen requirements are back to baseline. Weight down 3 kg. 02/13/18 11:27 Weight essentially stable. Lasix remains on hold. Lungs are clear with diminished breath sounds. Creatinine slightly improved at 3.0 with estimated GFR 16. 02/16/18 11:46 Weight is stable. Lungs are clear. Creatinine improved at 2.5. Slow progress with therapy. 02/17/18 11:15 Patient is currently frustrated because of recurrence of her pain in the right hip/low back area and right leg. She is concerned about going home prematurely. Discussed possibility of shelter placement but she absolutely refuses. 02/18/18 10:54 Lightheadedness this morning. Vital signs are stable. She is concerned about going home later this week. Lower extremity weakness continues. 02/20/18 11:14 Weight is down and creatinine slightly up at 2.7. Dyspnea is at baseline levels with activity. No clinical evidence of arrhythmia. Requires motivation and verbal cues to participate with therapy. Easy fatigability. 02/23/18 10:09 Dismissal was delayed due to lack of appropriate equipment at home. Hospital bed should arrive this morning and she will be dismissed. - Interventions to Obtain Goals PT Treatment Plan: Balance/Proprioception, Functional Activities, Gait Training , Patient/Family Education, Therapeutic Exercise OT Treatment Plan: ADL (Basic Care), Balance Training, Pt./Family Education, Ther. Exercise for ADL
== END 2018-02-23 11:50 | disposition home health service (06) | DRG 189 ==
PROVIDERS: ADMIT Internal Medicine; ATTEND Internal Medicine

== ENCOUNTER 2018-03-17 16:07 | Inpatient (IN) ==
--- NOTE | 2018-03-17 16:37 | Emergency Department Report ---
SOB HPI - General Chief Complaint: Shortness of Breath/Dyspnea <Son Kang - 03/17/18 18:10> Stated Complaint: difficulty breathing <Son Kang - 03/17/18 18:10> Source: patient <Anna Quintanilla 03/17/18 16:39> Mode of arrival: EMS <Anna Quintanilla 03/17/18 16:39> Limitations: no limitations <Anna Quintanilla 03/17/18 16:39> - History of Present Illness Pt presents with a complaint of SOA which has progressed over the last couple of days. She does occasionally use oxygen at home and increased her O2 to bring SpO2 up from 77% on RA. Pt has a history of CHF and was recently admitted for CHF and new onset A Fib about 3 weeks ago. She did call Dr Johnson office earlier today but did not have a response prior to coming to ER. She denies cough, fever, or chest pain. <Anna Quintanilla 03/17/18 16:39> Onset (ago): day(s) <Anna Quintanilla 03/17/18 16:39> Consistency/Duration: constant <Anna Quintanilla 03/17/18 16:39> Known history of: congestive heart failure <Anna Quintanilla 03/17/18 16: 39> Associated symptoms: denies other symptoms <Anna Quintanilla 03/17/18 16: 39> - Related Data Home Medications Medication Instructions Recorded Confirmed Linaclotide [Linzess] 145 mcg PO DAILY 01/14/18 03/17/18 Peg 3350 238 G Bottle [Miralax] 17 gm PO DAILY 01/14/18 03/17/18 Acetaminophen [Acetaminophen Extra 1,000 mg PO TID PRN 03/17/18 03/17/18 Strength] Hydrocodone/APAP 5/325 [[place] 1 tab PO Q4H PRN 03/17/18 03/17/18 5/325] Previous Rx's Medication Instructions Recorded Amiodarone [Pacerone] 200 mg PO DAILY #30 tab 02/20/18 Apixaban [Eliquis] 2.5 mg PO BID #60 tab 02/20/18 Cholecalciferol [Vit. D-3] 1,000 unit PO DAILY tab 02/20/18 Furosemide [Lasix 20 mg Tab] 20 mg PO DAILY PRN tab 02/20/18 Metoprolol Tartrate [Lopressor] 50 mg PO BIDWM #60 tab 02/20/18 NIFEdipine XL [Procardia Xl] 60 mg PO DAILY #30 tab 02/20/18 Pantoprazole Tab [Protonix Tab] 40 mg PO ACB #30 tab 02/20/18 Senna + Docusate [Senna Plus 2 tab PO DAILY tab 02/20/18 Tablet] Simethicone [Mylicon] 80 mg PO Q2H PRN tab.chew 02/20/18 Tramadol [Ultram] 50 mg PO BID PRN #30 tab 02/20/18 <Son Kang 03/17/18 18:10> Allergies Allergy/AdvReac Type Severity Reaction Status Date / Time doxazosin Allergy Mild Verified 03/17/18 16:40 lisinopril AdvReac Intermediate VOMITTING Verified 03/17/18 16:40 promethazine [From Phenergan] AdvReac Intermediate Muscle Verified 03/17/18 16: 40 Cramping gabapentin AdvReac Unknown Verified 03/17/18 16:40 <Son Kang 03/17/18 18:10> Review of Systems All systems: reviewed and negative except as stated <Anna Quintanilla 02/27 16:39> Constitutional: Reports: as per HPI <Anna Quintanilla 03/17/18 16:39> Respiratory: Reports: as per HPI <Anna Quintanilla 03/17/18 16:39> PFSH Patient Stated Medical History Congestive Heart Failure Yes Hypertension Yes Sleep Apnea Yes Diabetes Mellitus Type 2 Yes: denies taking any current meds, says AIC has been ok Hx Incontinence Yes Hx Renal Disease Yes Hx Urinary Tract Infection Yes Other Yes: CKD stage 3 Other Musculoskeletal Yes: chronic knee Cellulitis Yes Sepsis Yes Blood Transfusions Yes: when she had hysterectomy <Son Kang 03/17/18 18:10> Patient Stated Medical History Congestive Heart Failure Yes Hypertension Yes Sleep Apnea Yes Diabetes Mellitus Type 2 Yes: denies taking any current meds, says AIC has been ok Hx Incontinence Yes Hx Renal Disease Yes Hx Urinary Tract Infection Yes Other Yes: CKD stage 3 Other Musculoskeletal Yes: chronic knee Cellulitis Yes Sepsis Yes Blood Transfusions Yes: when she had hysterectomy <GayAnna goel 03/17/18 16:39> Medical History Updates: Type II diabetes. Chronic kidney disease-stage IV. Obesity hypoventilation syndrome. Hypercholesterolemia. Hypertension. Hyperlipidemia. Chronic diastolic heart failure. Chronic back pain. Morbid obesity- BMI 62% <Anan Quintanilla 03/17/18 16:39> Surgical History: Exploratory laparotomy, lysis of adhesions and decompression colonoscopy. 11-13-2010 An[facility]. Sigmoid resection (many years prior to 2010) . Colonoscopy and decompression 11/26/2010 [facility]. Hysterectomy & bilateral salpingo-oophorectomy. Right bunionectomy. Right knee arthroscopy <Anna Quintanilla 03/17/18 16:39> Family History Updates: Patient reports that both of her parents of "old age." One brother had a brain tumor. Another brother had heart disease and diabetes. Sister has had hypertension. <Anna Quintanilla 03/17/18 16:39> - Social History Smoking status: Never smoker <Anna Quintanilla 03/17/18 16:39> Substance use type: does not use <Anna Quintanilla 03/17/18 16:39> Alcohol intake: never <Anna Quintanilla 03/17/18 16:39> Alcohol intake frequency: does not drink <Anna Quintanilla 03/17/18 16:39> Housing: house <Anna Quintanilla 03/17/18 16:39> Household members: spouse <Anna Quintanilla 03/17/18 16:39> Current occupational status: retired <Anna Quintanilla 03/17/18 16:39> Current residence: Apartment/Private Home <Anna Quintanilla 03/17/18 16:39 > Physical Exam - Limitations Limitations: other (morbidly obese) <Anna Quintanilla 03/17/18 16:39> - General General appearance: alert, in no apparent distress <Anna Quintanilla 03/17 16:39> - Normal Exams: Head:: Normocephalic without trauma <GayneenadesiraeAnna Waters 03/17/18 16:39> Cardiovascular:: Regular rate and rhythm, without murmur or gallop, Pulses 2+ all extremities, capillary refill, <2 seconds all extremities (1+ non pitting pedal edema bilaterally ) <DwihgtAnna Evelin Guerrier 03/17/18 16:39> Abdomen:: Bowel sounds positive, soft, non-tender, non-distended <Dwight Anna R Fareed 03/17/18 16:39> Musculoskeletal:: No tenderness, or deformity noted, good range of motion, all extremities <DwightAnna Evelin Guerrier 03/17/18 16:39> Integumentary:: No rashes <DwightAnna Evelin Guerrier 03/17/18 16:39> Neurological:: Patient is alert, and oriented, cranial nerves, motor/sensory/ cerebellar, exams w/o gross deficits, to observation <Anna Quintanilla Fareed 02/27 16:39> Psychiatric:: Patient exhibits, appropriate attention, emotion and affect < DwightAnna Evelin Guerrier 03/17/18 16:39> - Expanded Respiratory Exam Location: Right: wheezes, decreased breath sounds, dullness to percussion, Upper : wheezes, Lower: decreased breath sounds, dullness to percussion <Dwight Anna Evelin Guerrier 03/17/18 16:39> Course Vital Signs Temperature 98.4 F 03/17/18 16:10 Pulse Rate 80 03/17/18 16:10 Respiratory Rate 20 03/17/18 16:10 Blood Pressure 126/61 03/17/18 16:10 Pulse Oximetry 99 03/17/18 16:10 Temperature 98.4 F 03/17/18 16:10 Pulse Rate 79 03/17/18 17:34 Respiratory Rate 23 03/17/18 17:34 Blood Pressure 142/76 H 03/17/18 17:34 Pulse Oximetry 93 03/17/18 17:34 <Son Kang 03/17/18 18:10> Vital Signs Temperature 98.4 F 03/17/18 16:10 Pulse Rate 80 03/17/18 16:10 Respiratory Rate 20 03/17/18 16:10 Blood Pressure 126/61 03/17/18 16:10 Pulse Oximetry 99 03/17/18 16:10 Temperature 98.4 F 03/17/18 16:10 Pulse Rate 80 03/17/18 16:10 Respiratory Rate 20 03/17/18 16:10 Blood Pressure 126/61 03/17/18 16:10 Pulse Oximetry 99 03/17/18 16:10 <SherriClarita merrillslick Waters - 03/17/18 16:39> Shortness of Breath/Dyspnea - [facility] Narrative Medical decision making narrative: Labs reviewed and compared to last admission labs from 3 weeks ago. Pt titrated off NRB down to 4L per NC to maintain SpO2 in the low 90s. PT uses C PAP at night but does not normally require regular home O2. Hospitalist notified and will admit observation at this time. <Anna Quintanilla - 03/17/18 18:04> - Differential Diagnosis Likely: acute exacerbation of chronic obstructive airways disease, congestive heart failure, community acquired pneumonia, asthma with exacerbation < Anna Quintanilla 03/17/18 16:39> - Lab Data Attestation: I reviewed the patient's lab results. <Anna Quintanilla - 03/17 18:04> Result diagrams: 03/17/18 16:36 03/17/18 16:36 <Son Kang - 03/17/18 18:10> Lab Results 03/17/18 03/17/18 03/17/18 Range/Units 16:36 16:36 17:29 WBC 12.6 H (4.5-11.0) T/MM3 RBC 3.51 L (4.00-5.20) M/MM3 Hgb 10.4 L (12-16) GM/DL Hct 34.0 L (36-46) % MCV 96.9 (80-100) UM3 MCH 29.6 (26-34) UUG MCHC 30.6 L (31-37) GM/DL RDW Std Deviation 50.4 H (36.9-50.2) FL Plt Count 455 H D (130-400) T/MM3 MPV 10.2 (9.4-12.4) UM3 Immature Gran % (Auto) 1.4 H (0.0-0.5) % Neut % (Auto) 70.3 H (33-66) % Lymph % (Auto) 19.5 L (23-45) % [place] % (Auto) 6.8 (0-9.0) % Eos % (Auto) 1.8 (0-4) % Baso % (Auto) 0.2 (0-2) % Neut # (Auto) 8.9 H (1.8-7.7) T/MM3 Lymph # (Auto) 2.5 (1-4.8) T/MM3 [place] # (Auto) 0.9 H (0-0.8) T/MM3 Eos # (Auto) 0.2 (0-0.5) T/MM3 Baso # (Auto) 0.0 (0-0.2) T/MM3 Abs Immat Gran (auto) 0.18 H (0.00-0.03) T/MM3 Turbidity < 20 (0-20) Sodium 149 H (134-144) MEQ/L Potassium 4.9 (3.6-5) MEQ/L Chloride 106 (98-107) MEQ/L Carbon Dioxide 26 (22-30) MEQ/L Anion Gap 17 H (5-15) meq/L BUN 48.0 H (7-17) MG/DL Creatinine 2.6 H (0.7-1.2) mg/dL GFR Calculation 18 BUN/Creatinine Ratio 19 (6-26) RATIO Glucose 107 (65-110) MG/DL Calculated Osmolality 299 H (261-280) MOSM/KG Calcium 7.8 L (8.4-10.2) MG/DL Total Bilirubin 0.60 (0.20-1.30) MG/DL Icterus Index < 2 (0-7) AST 32 (14-36) U/L ALT 25 (1-35) U/L Alkaline Phosphatase 212 H (38-126) U/L Troponin I < 0.012 (0-0.12) ng/ml NT-Pro-B Natriuret Pep 4040 H (0-175) pg/mL Total Protein 7.6 (6.3-8.2) g/dL Albumin 3.8 (3.5-5.0) g/dL Globulin 3.8 H (2.4-3.6) G/DL Albumin/Globulin Ratio 1.0 L (1.1-2.2) RATIO Specimen Hemolysis 89 H (0-25) Ur Collection Type Urine, cath straight Urine Color Yellow (YELLOW) Urine Clarity Clear Urine pH 5.5 (5.0-8.0) Ur Specific [place] 1.025 (1.015-1.025) Urine Protein 3+ A (NEGATIVE) Urine Glucose (UA) Negative (NEGATIVE) Urine Ketones Negative (NEGATIVE) Urine Occult Blood 1+ A (NEGATIVE) Urine Nitrate Negative (NEGATIVE) Urine Bilirubin Negative (NEGATIVE) Urine Urobilinogen 0.2 (NORMAL) EU/DL Ur Leukocyte Esterase Negative (NEGATIVE) <Jorge LuisSon Chase 03/17/18 18:10> - Radiology Data Attestation: I reviewed the patient's radiology results. <SherridesiraeAnna R 03/17/18 18:04> - EKG Data EKG #1 EKG attestation: Yes: I reviewed and interpreted this EKG. <Jorge LuisSon Chase 03/17/18 18:10> EKG results narrative: 79 bpm <Jorge Luis03/17/18 18:10> EKG shows normal: sinus rhythm <Jorge Luis03/17/18 18:10> Rate: normal <Jorge Luis03/17/18 18:10> Rhythm: NSR <Jorge Luis03/17/18 18:10> [place]ille/QRS: left axis deviation <Jorge Luis03/17/18 18:10> Interpretation: no acute changes <Jorge LuisSon 03/17/18 18:10> Disposition Clinical Impression: Congestive heart failure Qualifiers: Heart failure type: unspecified Heart failure chronicity: acute on chronic Qualified Code(s): I50.9 - Heart failure, unspecified <Jorge LuisSon Chase 03/17/18 18:10> Disposition: 02 To OBS [facility] <Jorge LuisSon 03/17/18 18:10> Condition: Stable <ReaganSon Chase 03/17/18 18:10> Instructions: <ReaganSon Chase 03/17/18 18:10> Prescriptions: No Action Linaclotide [Linzess] 145 mcg PO DAILY Peg 3350 238 G Bottle [Miralax] 17 gm PO DAILY Amiodarone [Pacerone] 200 mg PO DAILY #30 tab Apixaban [Eliquis] 2.5 mg PO BID #60 tab Furosemide [Lasix 20 mg Tab] 20 mg PO DAILY PRN tab PRN Reason: fluid retention Metoprolol Tartrate [Lopressor] 50 mg PO BIDWM #60 tab NIFEdipine XL [Procardia Xl] 60 mg PO DAILY #30 tab Senna + Docusate [Senna Plus Tablet] 2 tab PO DAILY tab Simethicone [Mylicon] 80 mg PO Q2H PRN tab.chew PRN Reason: Gas Tramadol [Ultram] 50 mg PO BID PRN #30 tab PRN Reason: Pain Hydrocodone/APAP 5/325 [[place] 5/325] 1 tab PO Q4H PRN PRN Reason: Pain Cholecalciferol [Vit. D-3] 1,000 unit PO DAILY tab Pantoprazole Tab [Protonix Tab] 40 mg PO ACB #30 tab Acetaminophen [Acetaminophen Extra Strength] 1,000 mg PO TID PRN PRN Reason: Pain <Son Kang - 03/17/18 18:10> Referrals: Amanda Kan APRN [Primary Care Provider] - <Son Kang - 03/17/18 18:10> Forms: <Son Kang - 03/17/18 18:10> Time of Disposition: 18:04 <Anna Quintanilla - 03/17/18 18:04> - Seen By: midlevel <Anna Quintanilla - 03/17/18 18:04>
--- NOTE | 2018-03-17 18:11 | History & Physical Report ---
History of Present Illness Date: 03/17/18 Chief complaint: SOA, hypoxia HPI: Patient is a 67 yo female who presents to ED with progressive SOA yue over the past 3 days. She was dismissed from IRU approx 3 wks ago and reports she never got the [id number] lift so she hasn't been out of bed. She usually uses 2L O2 at home and has been using 3-4 lately. Sleeps with Bipap. States she has been in touch with Dr. Johnson but she isn't getting better. She takes Lasix PRN and took 40mg this am and took 20 mg on 03/12/18. She lives at home w/ her . Her PCP is Dr. Joshi who comes to her house and is out of [place]. W -u in ER revealed WBC of 12.6, Creatinine 2.6 (baseline for her), and elevated BNP. CT chest with b/l pleural effusions and patchy subpleural parenchymal densities. She was admitted for observation under the hospitalist service. Review of Systems All systems PM: 10-point ROS was reviewed, no additional remarkable complaints except (SOA, weakness, chronic back pain) Past Medical History Medical History Updates: Type II diabetes. Chronic kidney disease-stage IV. Obesity hypoventilation syndrome. Hypercholesterolemia. Hypertension. Hyperlipidemia. Chronic diastolic heart failure. Chronic back pain. Morbid obesity- BMI 53 Surgical History: Exploratory laparotomy, lysis of adhesions and decompression colonoscopy. 11-13-2010 Anand. Sigmoid resection (many years prior to 2010) . Colonoscopy and decompression 11/26/2010 [facility]. Hysterectomy & bilateral salpingo-oophorectomy. Right bunionectomy. Right knee arthroscopy Family History: Patient reports that both of her parents of "old age." One brother had a brain tumor. Another brother had heart disease and diabetes. Sister has had hypertension. Family History: As Above - Social History Smoking status: Never smoker Substance use type: does not use Alcohol intake: never Alcohol intake frequency: does not drink Housing: house Household members: spouse Current occupational status: retired Current residence: Apartment/Private Home Medications Home Medications Medication Instructions Recorded Confirmed Type Linaclotide [Linzess] 145 mcg PO DAILY 01/14/18 03/17/18 History Peg 3350 238 G Bottle [Miralax] 17 gm PO DAILY 01/14/18 03/17/18 History Amiodarone [Pacerone] 200 mg PO DAILY #30 tab 02/20/18 03/17/18 Rx Apixaban [Eliquis] 2.5 mg PO BID #60 tab 02/20/18 03/17/18 Rx Cholecalciferol [Vit. D-3] 1,000 unit PO DAILY tab 02/20/18 03/17/18 Rx Furosemide [Lasix 20 mg Tab] 20 mg PO DAILY PRN tab 02/20/18 03/17/18 Rx Metoprolol Tartrate [Lopressor] 50 mg PO BIDWM #60 tab 02/20/18 03/17/18 Rx NIFEdipine XL [Procardia Xl] 60 mg PO DAILY #30 tab 02/20/18 03/17/18 Rx Pantoprazole Tab [Protonix Tab] 40 mg PO ACB #30 tab 02/20/18 03/17/18 Rx Senna + Docusate [Senna Plus 2 tab PO DAILY tab 02/20/18 03/17/18 Rx Tablet] Simethicone [Mylicon] 80 mg PO Q2H PRN tab.chew 02/20/18 03/17/18 Rx Tramadol [Ultram] 50 mg PO BID PRN #30 tab 02/20/18 03/17/18 Rx Acetaminophen [Acetaminophen Extra 1,000 mg PO TID PRN 03/17/18 03/17/18 History Strength] Hydrocodone/APAP 5/325 [[place] 1 tab PO Q4H PRN 03/17/18 03/17/18 History 5/325] Allergies Allergy/AdvReac Type Severity Reaction Status Date / Time doxazosin Allergy Mild Verified 03/17/18 16:40 lisinopril AdvReac Intermediate VOMITTING Verified 03/17/18 16:40 promethazine [From Phenergan] AdvReac Intermediate Muscle Verified 03/17/18 16: 40 Cramping gabapentin AdvReac Unknown Verified 03/17/18 16:40 Exam Vital Signs: Temperature 98.4 F 03/17/18 16:10 Pulse Rate 79 03/17/18 17:34 Respiratory Rate 23 03/17/18 17:34 Blood Pressure 142/76 H 03/17/18 17:34 Pulse Oximetry 93 03/17/18 17:34 Height/Weight/BMI: Height 1.73 m Weight 158.7 kg - Constitutional Present: no acute distress, well nourished, well developed, morbidly obese - Routine HEENT Exam Head: Present: normocephalic, atraumatic Eye: Present: EOMI, PERRL ENT: Present: mucous membranes moist, oropharynx clear - Routine Neck Exam Present: supple. Absent: lymphadenopathy, thyromegaly - Routine Respiratory Exam Present: decreased breath sounds, distant breath sounds. Absent: wheezes - Routine Cardiovascular Exam Present: RRR, no murmur - Routine Abdominal Exam Present: soft, normoactive bowel sounds. Absent: tenderness, distended - Routine Extremities Exam Present: edema (tr), normal capillary refill - Routine Skin Exam Present: dry, warm - Routine Neurological Exam Present: alert, oriented X3, CN II-XII intact - Routine Psychiatric Exam Present: normal affect, cooperative Results - Labs CBC & Chem 7: 03/17/18 16:36 03/17/18 16:36 Labs: Laboratory Tests 03/17/18 16:36 Alkaline Phosphatase 212 H Troponin I < 0.012 NT-Pro-B Natriuret Pep 4040 H Assessment and Plan Assessment and Plan: Assessment Acute on chronic respiratory failure with hypoxemia B/l pleural effusions and patchy subpleural parenchymal densities b/l found on CT chest - r/o pneumonia vs CHF exacerbation vs other SIRS: leukocytosis and tachypnea - possible pulm source. Leukocytosis - POA (12.6) Thrombocytosis - POA (455) Hypernatremia - POA (149) CKD Stage 4 Acute on chronic diastolic CHF PAF HTN Type 2 DM - diet controlled HLD Chronic back pain Morbid obesity 53.2 Plan Admit, OBS O2 supplementation PRN. Home Bipap at hs and PRN. Start Rocephin given SIRS criteria and possibility of PNA. IV Bumex for diuresis. Continue Eliquis for PAF and VTE ppx. Telemetry. OT/PT to assess functional status. Glucose was stable last visit and A1c is reportedly <7, will not do routine accuchecks. Monitor glucose with daily labs. Labs in am to follow blood counts, renal function and electrolytes, Mg level and trend troponin. Daily weights/I&O's to monitor fluid status. Code status: She states that she does want CPR and defib/meds if necessary but does not want intubation nor mechanical ventilation. She does not want a prolonged resuscitative episode. Care to return to Dr. Joshi on D/C. Discussed with Dr. Garcia. DVT Prophylaxis: Eliquis GI Prophylaxis: Protonix Resuscitation Status: Do Not Intubate - Physician Narrative Physician: Shravan Garcia MD Narrative: Date: 03/17/18 Time: 1934 Have independently interviewed and examined pt. Chart reviewed. Case discussed with ED provider and my PA. Care plan developed with my supervision; agree with above. Presents to ED secondary to increasing SOA. Symptoms onset a few day ago-noted more winded and having to work harder to breath. Little cough. No sputum or congestion. Not having F/C. No chest pressure, pain, or palpitations. LE edema stable (in fact, reports decreased LE edema since discharge from IRU as elevating legs at home). Not having muscle cramps or spasms. Appetite stable. No ab pain or nausea. Bowels stable. Adherent with BiPAP at night. With increasing SOA, started wearing O2 at home and increased from 2 to 4L. Today, sats still decreased despite 4L. Evaluated in ED. Creatinine near baseline. WBC with slight increase. CT chest showing small effusions - no etienne tom failure or pneumonia. With increased O2 needs, placed on OBS for further evaluation. Lungs: decreased; no crackles/wheezes. No distress with O2. CV: regular AB: soft nt/nd EXT: +2 edema MSE: awake alert appropriate Plan: OBS. Continue with supplemental O2, weaning as able. Will check troponin to exclude AMI causing increased difficulty breathing. Bumex 1mg IV x1 tonight, then BID (0800/1500) tomorrow - not certain if much edema to be motivated. Rocephin for pulm coverage due to leukocytosis - not seeing obvious infiltrate. Worry large portion of her hypoxia is obesity hypoventilation. Continue home meds. PT/OT to help improve functional status. Monitor lab. DNI as per requests. Hospital Course Summary Disclaimer: The visit summary below is not to be considered part of the above Progress Note. Hospital Course: 03/17/18 Admit, OBS O2 supplementation PRN. Home Bipap at hs and PRN. Start Rocephin given SIRS criteria and possibility of PNA. IV Bumex for diuresis - 1mg IV BID (0800/1500). Continue Eliquis for PAF and VTE ppx. Telemetry. OT/PT to assess functional status. Glucose was stable last visit and A1c is reportedly <7, will not do routine accuchecks. Monitor glucose with daily labs. Labs in am to follow blood counts, renal function and electrolytes, Mg level and trend troponin. Daily weights/I&O's to monitor fluid status. Code status: She states that she does want CPR and defib/meds if necessary but does not want intubation nor mechanical ventilation. She does not want a prolonged resuscitative episode. Care to return to Dr. Joshi on D/C.
[2018-03-17] MEDS ORDERED: ONDANSETRON ODT 4 MG TABLET PO PRN (18:58)
[2018-03-17] MEDS ORDERED: TRAMADOL 50 MG TABLET PO PRN (18:58)
[2018-03-17] MEDS ORDERED: BISACODYL 10 MG SUPPOSITORY RECTALLY PRN (18:58)
[2018-03-17] MEDS ORDERED: SIMETHICONE 80 MG CHEWABLE TABLET PO PRN (18:58)
[2018-03-17] MEDS: NS FLUSH BAG 500ml IV PRN (20:20)
[2018-03-17] MEDS: CEFTRIAXONE 1 G in NS 100 ML IV SCH (20:20)
[2018-03-17] MEDS: SALINE FLUSH 10ml SYRINGE IVF PRN (20:22)
[2018-03-17] MEDS: APIXABAN 2.5 MG PO SCH (21:27)
[2018-03-17] MEDS: HYDROCODONE/APAP 5mg/325mg TABLET PO PRN (21:31)
[2018-03-18] MEDS: --POM--PANTOPRAZOLE 40 MG TABLET PO SCH (05:58)
--- NOTE | 2018-03-18 08:06 | CT Scan Report ---
Indication: SOA, CHF PROCEDURE: CT chest wo con: Encounter: Initial Comparison: None Technique: Axial CT images were performed through the chest without intravenous contrast. Coronal and sagittal two-dimensional reformats. Automated Exposure Control and Iterative Reconstruction dose reducing techniques were utilized. Findings: Patchy peripheral consolidation in the right upper lobe and both lower lobes with small pleural effusions. Interlobular septal thickening. Motion artifact. The central airways are patent. No axillary adenopathy. Possibly reactive paratracheal nodes. Heart size is normal. No pericardial effusion. Upper abdomen shows no acute findings. Bone windows show no acute findings. Impression: Findings suggesting at least moderate pulmonary edema. Superimposed pneumonia cannot be entirely excluded. Recommend clinical and laboratory correlation. There is a preliminary report by [facility]. .
[2018-03-18] MEDS: --POM--NIFEdipine XL 60 MG TABLET PO SCH (08:52)
[2018-03-18] MEDS: SENNA + DOCUSATE TABLET PO SCH (08:52)
[2018-03-18] MEDS: --POM--AMIODARONE 200 MG TABLET PO SCH (08:53)
[2018-03-18] MEDS: POLYETHYL GLYCOL 3350 17gm PACKET PO SCH (08:53)
[2018-03-18] MEDS: SALINE FLUSH 10ml SYRINGE IVF PRN ×3 (08:53→14:28)
[2018-03-18] MEDS: APIXABAN 2.5 MG PO SCH ×2 (08:53→22:21)
[2018-03-18] MEDS: --POM--METOPROLOL TARTRATE 50mg TABLET PO SCH ×2 (08:53→16:59)
[2018-03-18] MEDS: CHOLECALCIFEROL PO SCH (08:53)
[2018-03-18] MEDS: ACETAMINOPHEN 500 MG TABLET PO PRN (08:53)
[2018-03-18] MEDS: CEFTRIAXONE 1 G in NS 100 ML IV SCH (08:54)
--- NOTE | 2018-03-18 11:52 | Progress Note ---
- Date 03/18/18 Subjective: Sully is seen this morning while resting in bed. She is currently on 4 liters of oxygen and reports at home she is using between 2-4liters. She did use Bi- pap at home. She reports having her chronic knee and back pain however no other discomfort. She has been home for about 3 weeks and reports she has not been able to get up besides sitting on the edge of the bed. Her sit to stand lift was never delivered and she is unable to ambulate. Objective Vital signs: Temperature 96.8 F 03/18/18 07:13 Pulse Rate 86 03/18/18 07:13 Respiratory Rate 18 03/18/18 07:13 Blood Pressure 140/76 H 03/18/18 07:13 Pulse Oximetry 99 03/18/18 07:13 Height/Weight/BMI: Height 1.7 m Weight 166.1 kg Body Mass Index 57.4 - Constitutional Present: no acute distress, well nourished, well developed - Routine HEENT Exam Eye: Present: EOMI ENT: Present: mucous membranes moist, dentition normal - Routine Respiratory Exam Present: diminished air movement. Absent: wheezes - Routine Cardiovascular Exam Present: RRR, S1, S2. Absent: murmur - Routine Abdominal Exam Present: soft, normoactive bowel sounds, non distended. Absent: tenderness - Routine Extremities Exam Present: edema (trace lower ext) - Routine Skin Exam Present: intact, dry, warm - Routine Neurological Exam Present: alert, oriented X3, CN II-XII intact - Routine Lymphatic Exam Lymphatic: Absent: adenopathy - Routine Psychiatric Exam Present: normal affect, normal thought process, cooperative Results - Labs CBC & Chem 7: 03/18/18 04:07 03/18/18 04:07 Assessment and Plan Assessment and Plan: Assessment Acute on chronic respiratory failure with hypoxemia CHF exacerbation-acute on chronic diastolic B/l pleural effusions and patchy subpleural parenchymal densities b/l found on CT chest - CHF exacerbation SIRS: leukocytosis and tachypnea - possible pulm source. Leukocytosis - POA (12.6) Thrombocytosis - POA (455) Hypernatremia - POA (149) CKD Stage 4 Acute on chronic diastolic CHF PAF HTN Type 2 DM - diet controlled HLD Chronic back pain Morbid obesity 53.2 03/18/18 On baseline oxygen and bi-pap She is currently on IV Bumex- monitor fluid balance Leukocytosis was resolved. Hgb slightly decreased however stable Persistent hypernatremia at 147 Continue Eliquis for PAF and VTE ppx. Currently remains observations status. Will wait for PT/OT to evaluate and recommendation Case discussed with CM, PT, attending DVT Prophylaxis: Eliquis Resuscitation Status: Do Not Intubate - Physician Narrative Physician: Susan Clarke MD Narrative: Date: 03/18/18 Time: 1605 I have independently evaluated and examined this patient. I reviewed the chart, the patient's history, and the THREAD INSPECTOR/PA's documented findings as above. We discussed and formulated the assessment and plan as above with additions as below: Mrs. Arshad was seen this morning at which time she denied dyspnea but reported some mild exertional dyspnea when she was up to the bedside commode. She denied cough or sputum production. She reports she's had no chest pain or nausea and vomiting. As noted she's not been out of bed since discharge home due to failure to have equipment delivered. Apparently equipment is set to be delivered approximate March 27 although the patient has had daily conversations with the home equipment company with multiple messages provided since she left rehabilitation. She denies fevers or chills. Because she's been bedbound she's been unable to follow weights but weight today is unchanged from weights prior to discharge and creatinine is stable compared to baseline. Nonetheless she has required increasing oxygen at rest and during the night with O2 of 8 L needed with BiPAP last night. NAD, alert; respirations nonlabored with decreased breath sounds throughout but crackles present at the bases Regular rhythm, S1-S2, I don't appreciate a murmur +1-2 edema bilateral lower extremities but calves are much softer than when I initially saw her approximate 6 weeks ago on rehabilitation. Telemetry strips reviewed-sinus rhythm Magnesium 1.4, proBNP 4040, troponin <0.012 x [address] Johnson-Christiannemex increased to promote additional diuresis CTA obtained yesterday reviewed by myself revealing increased interstitial markings consistent with pulmonary edema and small pleural effusions Acute on chronic diastolic heart failure although patient's weight is not up; patient's attempt to diurese at home with 20 mg and 40 mg of Lasix ineffective due to degree of renal failure. Diuresing with more potent loop diuretic; may require intermittent Zaroxolyn. Will discuss with . Converted to inpatient status due to worsening of chronic heart failure and worsening hypoxia. Hospital Course Summary Disclaimer: The visit summary below is not to be considered part of the above Progress Note. Hospital Course: 03/17/18 Admit, OBS O2 supplementation PRN. Home Bipap at hs and PRN. Start Rocephin given SIRS criteria and possibility of PNA. IV Bumex for diuresis - 1mg IV BID (0800/1500). Continue Eliquis for PAF and VTE ppx. Telemetry. OT/PT to assess functional status. Glucose was stable last visit and A1c is reportedly <7, will not do routine accuchecks. Monitor glucose with daily labs. Labs in am to follow blood counts, renal function and electrolytes, Mg level and trend troponin. Daily weights/I&O's to monitor fluid status. Code status: She states that she does want CPR and defib/meds if necessary but does not want intubation nor mechanical ventilation. She does not want a prolonged resuscitative episode. Care to return to Dr. Joshi on D/C. 03/18/18 On baseline oxygen and bi-pap She is currently on IV Bumex- monitor fluid balance Leukocytosis was resolved. Hgb slightly decreased however stable Persistent hypernatremia at 147 Continue Eliquis for PAF and VTE ppx. Convert to inpatient status due to acute/chronic congestive heart failure and worsening hypoxia. Dr. Johnson consulted. Will wait for PT/OT to evaluate and recommendation Case discussed with CM, PT, attending
[2018-03-18] MEDS: MAGNESIUM SULFATE 1gm PREMIX 1 GM/100 ML BAG IV SCH ×2 (11:55→13:22)
--- NOTE | 2018-03-18 13:48 | Cardiology Consult Note ---
<Montse Valenzuela - Last Filed: 03/19/18 15:17> History of Present Illness Consult date: 03/18/18 Requesting physician: Susan Clarke Consult reason: shortness of breath Chief complaint: dyspnea History of present illness: Sully is a 67 year old female who is known to Dr. 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 She usually uses 2L O2 at home and has been using 3-4 lately. Sleeps with Bipap. States she has been in touch with Dr. Johnson's office but she wasn't getting better. She takes Lasix PRN and took 40mg this am and took 20 mg on 03/12/18. She lives at home w/ her . Her PCP is Dr. Joshi who comes to her house and is out of [place]. Lab revealed WBC of 12.6, Creatinine 2.6 (baseline for her), and elevated BNP. CT chest with b/l pleural effusions and patchy subpleural parenchymal densities. She was admitted for observation under the hospitalist service. Review of Systems - Constitutional Constitutional: Present: fatigue, weakness. Absent: chills, fever(s) - EENMT Eyes: Absent: change in vision Balance: Absent: vertigo Mouth/Throat: Absent: sore throat - Cardiovascular Cardiovascular: Present: dyspnea on exertion, orthopnea, edema. Absent: chest pain, palpitations, syncope Rhythm: Absent: abnormal rhythm Vascular: Present: pedal edema - Respiratory Respiratory: Present: cough. Absent: dyspnea, dyspnea on exertion - Gastrointestinal Gastrointestinal: Absent: abdominal pain, diarrhea, nausea, vomiting - Genitourinary Genitourinary: Absent: dysuria - Integumentary/Breasts Integumentary: Absent: rash - Neurological Neurological: Absent: dizziness - Endocrine Endocrine: Absent: palpitations PFSH Patient Stated Medical History Congestive Heart Failure Yes Hypertension Yes Sleep Apnea Yes Diabetes Mellitus Type 2 Yes: CONTROLLED Hx Incontinence Yes Hx Renal Disease Yes Other Musculoskeletal Yes: chronic knee Cellulitis Yes Sepsis Yes Blood Transfusions Yes: when she had hysterectomy Medical History Updates: Type II diabetes. Chronic kidney disease-stage IV. Obesity hypoventilation syndrome. Hypercholesterolemia. Hypertension. Hyperlipidemia. Chronic diastolic heart failure. Chronic back pain. Morbid obesity- BMI 53 Surgical History: Exploratory laparotomy, lysis of adhesions and decompression colonoscopy. 11-13-2010 [facility]. Sigmoid resection (many years prior to 2010) . Colonoscopy and decompression 11/26/2010 [facility]. Hysterectomy & bilateral salpingo-oophorectomy. Right bunionectomy. Right knee arthroscopy Family History Updates: Patient reports that both of her parents of "old age." One brother had a brain tumor. Another brother had heart disease and diabetes. Sister has had hypertension. - Social History Smoking status: Never smoker Substance use type: does not use Alcohol intake: never Alcohol intake frequency: does not drink Housing: house Household members: spouse Current occupational status: retired Current residence: Apartment/Private Home Medications Home Medications Medication Instructions Recorded Confirmed Type Linaclotide [Linzess] 145 mcg PO DAILY 01/14/18 03/17/18 History Peg 3350 238 G Bottle [Miralax] 17 gm PO DAILY 01/14/18 03/17/18 History Amiodarone [Pacerone] 200 mg PO DAILY #30 tab 02/20/18 03/17/18 Rx Apixaban [Eliquis] 2.5 mg PO BID #60 tab 02/20/18 03/17/18 Rx Cholecalciferol [Vit. D-3] 1,000 unit PO DAILY tab 02/20/18 03/17/18 Rx Metoprolol Tartrate [Lopressor] 50 mg PO BIDWM #60 tab 02/20/18 03/17/18 Rx NIFEdipine XL [Procardia Xl] 60 mg PO DAILY #30 tab 02/20/18 03/17/18 Rx Pantoprazole Tab [Protonix Tab] 40 mg PO ACB #30 tab 02/20/18 03/17/18 Rx Senna + Docusate [Senna Plus 2 tab PO DAILY tab 02/20/18 03/17/18 Rx Tablet] Simethicone [Mylicon] 80 mg PO Q2H PRN tab.chew 02/20/18 03/17/18 Rx Tramadol [Ultram] 50 mg PO BID PRN #30 tab 02/20/18 03/17/18 Rx Acetaminophen [Acetaminophen Extra 1,000 mg PO TID PRN 03/17/18 03/17/18 History Strength] Hydrocodone/APAP 5/325 [Alexander 1 tab PO Q4H PRN 03/17/18 03/17/18 History 5/325] Furosemide [Lasix 40 mg Tab] 1 tab PO DAILY #30 tab 03/20/18 Rx Allergies Allergy/AdvReac Type Severity Reaction Status Date / Time doxazosin Allergy Mild Verified 03/17/18 16:40 lisinopril AdvReac Intermediate VOMITTING Verified 03/17/18 16:40 promethazine [From Phenergan] AdvReac Intermediate Muscle Verified 03/17/18 16: 40 Cramping gabapentin AdvReac Unknown Verified 03/17/18 16:40 Exam Vital signs: Temperature 96.8 F 03/18/18 07:13 Pulse Rate 86 03/18/18 07:13 Respiratory Rate 18 03/18/18 07:13 Blood Pressure 140/76 H 03/18/18 07:13 Pulse Oximetry 99 03/18/18 07:13 - Constitutional mild distress, morbidly obese, cooperative - Routine HEENT Exam Head: Present: normocephalic ENT: Present: mucous membranes moist - Routine Neck Exam Absent: JVD, carotid bruit - Routine Chest/Breast/Axilla Exam Chest wall: Absent: tenderness - Routine Respiratory Exam Present: distant breath sounds. Absent: rales, wheezes - Routine Cardiovascular Exam Present: RRR, no murmur - Routine Abdominal Exam Present: soft, non tender - Routine Extremities Exam Present: edema - Routine Skin Exam Present: intact, dry, warm - Routine Neurological Exam Present: alert, oriented X3 - Routine Psychiatric Exam Present: normal affect, normal thought process Results 03/18/18 04:07 03/18/18 04:07 Cardiac Enzymes 03/17/18 03/18/18 Range/Units 22:53 04:07 Troponin I < 0.012 < 0.012 (0-0.12) ng/ml CBC 03/18/18 Range/Units 04:07 WBC 8.8 (4.5-11.0) T/MM3 RBC 3.30 L (4.00-5.20) M/MM3 Hgb 9.8 L (12-16) GM/DL Hct 32.1 L (36-46) % Plt Count 383 (130-400) T/MM3 Neut # (Auto) 6.3 (1.8-7.7) T/MM3 Lymph # (Auto) 1.6 (1-4.8) T/MM3 Linn # (Auto) 0.6 (0-0.8) T/MM3 Eos # (Auto) 0.2 (0-0.5) T/MM3 Baso # (Auto) 0.0 (0-0.2) T/MM3 Comprehensive Metabolic Panel 03/18/18 Range/Units 04:07 Sodium 147 H (134-144) MEQ/L Potassium 4.0 D (3.6-5) MEQ/L Chloride 108 H (98-107) MEQ/L Carbon Dioxide 27 (22-30) MEQ/L BUN 48.0 H (7-17) MG/DL Creatinine 2.6 H (0.7-1.2) mg/dL Glucose 90 (65-110) MG/DL Calcium 7.9 L (8.4-10.2) MG/DL Intake and Output 03/17/18 03/18/18 03/18/18 22:59 06:59 14:59 Intake Total 100 / 100 150 / 150 200 / 200 Output Total 400 / 400 975 / 975 150 / 150 Balance -300 / -300 -825 / -825 50 / 50 Intake: IV 100 / 100 200 / 200 Ceftriaxone 1 g In Ns 100 ml @ 100 / 100 100 / 100 200 mls/hr IV Q24H [facility] Rx#: [id number] MAGNESIUM SULFATE 1gm PREMIX 1 100 / 100 gm In 100 ml @ 100 mls/hr IV Q1H [facility] Rx#:[id number] Oral 150 / 150 Output: Urine 400 / 400 975 / 975 150 / 150 Other: Urine Appearance Clear Clear Clear Urine Color Yellow Yellow Yellow Urine Odor Normal Strong Stool Color Brown Size of Bowel Movement Smear # Voids 1 1 Weight 367 lb 1.114 oz 366 lb 3.005 oz Patient Weight 03/19/18 06:59 Weight 366 lb 3.005 oz Assessment and Plan - Assessment and Plan (1) Acute on chronic respiratory failure with hypoxemia Status: Resolved (2) Chronic kidney disease Status: Chronic (3) Essential (primary) hypertension Status: Chronic Suboptimal control. wait and monitor with increased diuresis - may consider increasing Nifedipine if needed (4) Mixed hyperlipidemia Status: Chronic (5) Morbid obesity with BMI of 50.0-59.9, adult Status: Chronic (6) PAF (paroxysmal atrial fibrillation) Status: Chronic Continue Amiodarone - continue Eliquis 2.5mg per pharmacy recommendation due to elevated creatinine (7) Diastolic CHF, acute on chronic Status: Acute Bumex 2mg IV Q8H - Monitor renal and electrolytes - - Assessment and Plan Diastolic CHF, acute on chronic Current visit: No Status: Acute - Bumex 2mg IV Q8H - Monitor renal and electrolytes Acute on chronic respiratory failure with hypoxemia Current visit: No Status: Resolved Chronic kidney disease Current visit: No Status: Chronic Essential (primary) hypertension Current visit: No Status: Chronic - Suboptimal control. wait and monitor with increased diuresis - may consider increasing Nifedipine if needed Mixed hyperlipidemia Current visit: No Status: Chronic Morbid obesity with BMI of 50.0-59.9, adult Current visit: No Status: Chronic PAF (paroxysmal atrial fibrillation) Current visit: No Status: Chronic - Continue Amiodarone - continue Eliquis 2.5mg per pharmacy recommendation due to elevated creatinine Thank you for allowing us to participate in the care of this patient Hospital Course Summary Disclaimer: The visit summary below is not to be considered part of the above Progress Note. Hospital Course: 03/17/18 Admit, OBS O2 supplementation PRN. Home Bipap at hs and PRN. Start Rocephin given SIRS criteria and possibility of PNA. IV Bumex for diuresis - 1mg IV BID (0800/1500). Continue Eliquis for PAF and VTE ppx. Telemetry. OT/PT to assess functional status. Glucose was stable last visit and A1c is reportedly <7, will not do routine accuchecks. Monitor glucose with daily labs. Labs in am to follow blood counts, renal function and electrolytes, Mg level and trend troponin. Daily weights/I&O's to monitor fluid status. Code status: She states that she does want CPR and defib/meds if necessary but does not want intubation nor mechanical ventilation. She does not want a prolonged resuscitative episode. Care to return to Dr. Joshi on D/C. 03/18/18 On baseline oxygen and bi-pap She is currently on IV Bumex- monitor fluid balance Leukocytosis was resolved. Hgb slightly decreased however stable Persistent hypernatremia at 147 Continue Eliquis for PAF and VTE ppx. Currently remains observations status. Will wait for PT/OT to evaluate and recommendation Case discussed with JOSE, PT, attending <ElizabethSpencer - Last Filed: 03/25/18 13:32> Exam Vital signs: Temperature 95.5 F L 03/20/18 19:49 Pulse Rate 84 03/20/18 19:49 Respiratory Rate 22 03/20/18 19:49 Blood Pressure 159/75 H 03/20/18 19:49 Pulse Oximetry 93 03/20/18 19:49 Results 03/20/18 04:29 03/20/18 04:29 Assessment and Plan - Attestation Attestation Narrative: 03/25/18 13:31 Recommendation After examining the patient I agree with the above assessment. I am involved in the formulation of the patient's plan of care. - Assessment and Plan (1) Chronic kidney disease Status: Chronic (2) Essential (primary) hypertension Status: Chronic (3) Mixed hyperlipidemia Status: Chronic (4) Morbid obesity with BMI of 50.0-59.9, adult Status: Chronic (5) PAF (paroxysmal atrial fibrillation) Status: Chronic (6) Acute on chronic respiratory failure with hypoxemia Status: Resolved (7) Diastolic CHF, acute on chronic Status: Acute Hospital Course Summary Disclaimer: The visit summary below is not to be considered part of the above Progress Note.
[2018-03-18] MEDS: HYDROCODONE/APAP 5mg/325mg TABLET PO PRN (22:23)
[2018-03-19] MEDS: --POM--PANTOPRAZOLE 40 MG TABLET PO SCH (05:55)
[2018-03-19] MEDS: --POM--NIFEdipine XL 60 MG TABLET PO SCH (09:15)
[2018-03-19] MEDS: POLYETHYL GLYCOL 3350 17gm PACKET PO SCH (09:16)
[2018-03-19] MEDS: CHOLECALCIFEROL PO SCH (09:16)
[2018-03-19] MEDS: APIXABAN 2.5 MG PO SCH ×2 (09:16→20:34)
[2018-03-19] MEDS: SENNA + DOCUSATE TABLET PO SCH (09:16)
[2018-03-19] MEDS: --POM--AMIODARONE 200 MG TABLET PO SCH (09:16)
[2018-03-19] MEDS: CEFTRIAXONE 1 G in NS 100 ML IV SCH (09:17)
[2018-03-19] MEDS: --POM--METOPROLOL TARTRATE 50mg TABLET PO SCH ×2 (09:17→17:44)
[2018-03-19] MEDS: SALINE FLUSH 10ml SYRINGE IVF PRN ×2 (09:19→19:43)
[2018-03-19] MEDS: NS FLUSH BAG 500ml IV PRN (09:19)
[2018-03-19] MEDS: ACETAMINOPHEN 500 MG TABLET PO PRN ×2 (09:19→15:10)
--- NOTE | 2018-03-19 14:08 | Progress Note ---
- Date 03/19/18 Subjective: Sully is seen today following lunch. She states that she is frustrated as her called the sit to stand lift company and they reported that they do not have a current order. She continues on liters of oxygen by nasal cannula to maintain saturations. She continued to utilize CPAP at night, during the night she woke up feeling short of breath when staff checked her oxygen saturations. She was in the 70s. She required oxygen up to 7-8 liters to maintain adequate saturations. Today she denies having any new pain or GI concerns. Continued lower ext edema present, Weight down only 1 kilogram from admission. Objective Vital signs: Temperature 97.6 F 03/19/18 08:00 Pulse Rate 87 03/19/18 08:00 Respiratory Rate 20 03/19/18 08:00 Blood Pressure 136/73 03/19/18 08:00 Pulse Oximetry 93 03/19/18 08:00 Height/Weight/BMI: Weight 165.5 kg - Constitutional Present: no acute distress, well nourished, well developed - Routine HEENT Exam Eye: Present: EOMI ENT: Present: mucous membranes moist, dentition normal - Routine Respiratory Exam Present: diminished air movement. Absent: wheezes - Routine Cardiovascular Exam Present: RRR, S1, S2. Absent: murmur - Routine Abdominal Exam Present: soft, normoactive bowel sounds, non distended. Absent: tenderness - Routine Extremities Exam Present: edema (BLE), normal capillary refill - Routine Skin Exam Present: intact, dry, warm - Routine Neurological Exam Present: alert, oriented X3, CN II-XII intact, moving all extremities - Routine Lymphatic Exam Lymphatic: Absent: adenopathy - Routine Psychiatric Exam Present: normal affect, cooperative Results - Labs CBC & Chem 7: 03/19/18 04:35 03/19/18 05:52 Assessment and Plan Assessment and Plan: Assessment Acute on chronic respiratory failure with hypoxemia CHF exacerbation-acute on chronic diastolic B/l pleural effusions and patchy subpleural parenchymal densities b/l found on CT chest - CHF exacerbation SIRS: leukocytosis and tachypnea - possible pulm source. Leukocytosis - POA (12.6) Thrombocytosis - POA (455) Hypernatremia - POA (149) CKD Stage 4 Acute on chronic diastolic CHF PAF HTN Type 2 DM - diet controlled HLD Chronic back pain Morbid obesity, BMI 53.2 Hypomagnesemia, 03/18/18 03/19/18 Continues 4-5 liters during day. Did require up to 8L with C-pap overnight. Continue with Bumex for diuresing, Monitor renal function Department Of [employer] Chair slightly up at 2.8 Continue Eliquis for PAF and VTE ppx. Appreciated cardiology consultation CM working with [email or web address] to get home sit-stand DVT Prophylaxis: Eliquis Resuscitation Status: Do Not Intubate - Physician Narrative Physician: Susan Clarke MD Narrative: Date: 03/19/18 Time: 1630 I have independently evaluated and examined this patient. I reviewed the chart, the patient's history, and the BILL CLERK/PA's documented findings as above. We discussed and formulated the assessment and plan as above with additions as below: Sully reports dyspnea is improving although oxygen demand remains above baseline level. She's had no chest pain, nausea, or vomiting. NAD, alert Respirations nonlabored with good airflow and clear anterior breath sounds. Calves are soft, no pitting edema appreciated Discussed with -diuresis as tolerates Telemetry reviewed by myself-sinus rhythm/sinus tachycardia Diuresing slowly, may require higher dose Bumex. Needs to be out of bed-new order written for lift for home use. Hospital Course Summary Disclaimer: The visit summary below is not to be considered part of the above Progress Note. Hospital Course: 03/17/18 Admit, OBS O2 supplementation PRN. Home Bipap at hs and PRN. Start Rocephin given SIRS criteria and possibility of PNA. IV Bumex for diuresis - 1mg IV BID (0800/1500). Continue Eliquis for PAF and VTE ppx. Telemetry. OT/PT to assess functional status. Glucose was stable last visit and A1c is reportedly <7, will not do routine accuchecks. Monitor glucose with daily labs. Labs in am to follow blood counts, renal function and electrolytes, Mg level and trend troponin. Daily weights/I&O's to monitor fluid status. Code status: She states that she does want CPR and defib/meds if necessary but does not want intubation nor mechanical ventilation. She does not want a prolonged resuscitative episode. Care to return to Dr. Joshi on D/C. 03/18/18 Increased O2 from baseline and bi-pap-also required higher flow O2 overnight. She is currently on IV Bumex- monitor fluid balance Leukocytosis was resolved. Hgb slightly decreased however stable Persistent hypernatremia at 147 Continue Eliquis for PAF and VTE ppx. Will wait for PT/OT to evaluate and recommendation Case discussed with CM, PT, attending 03/19/18 Continues 4-5 liters during day. Did require up to 8L with C-pap overnight. Continue with Bumex for diuresing, Monitor renal function Department Of [employer] Chair slightly up at 2.8 Continue Eliquis for PAF and VTE ppx. Appreciated cardiology consultation JOSE working with [email or web address] to get home sit-stand
--- NOTE | 2018-03-19 15:21 | Cardiology Progress Note ---
<Montse Valenzuela M - Last Filed: 03/20/18 12:00> Subjective Principal diagnosis: dyspnea Interval history: Sully is seen in follow up for DCHF and dyspnea. She is in the bed eating supper with family at the bedside. She states her breathing is slightly improved , she denies chest pain or palpitations. Exam Vital signs: Temperature 97.6 F 03/19/18 08:00 Pulse Rate 87 03/19/18 08:00 Respiratory Rate 20 03/19/18 08:00 Blood Pressure 136/73 03/19/18 08:00 Pulse Oximetry 93 03/19/18 08:00 Inpatient Medications: Generic Name Dose Route Start Last Admin Trade Name Freq PRN Reason Stop Dose Admin Acetaminophen 1,000 mg 03/17/18 18:58 03/19/18 15:10 Tylenol PO 1,000 mg TID PRN Administration Pain Hydrocodone Bitart/Acetaminophen 1 tab 03/17/18 18:58 03/18/18 22:23 Sumrall 5/325 PO 1 tab Q4H PRN Administration Pain Amiodarone HCl 200 mg 03/18/18 09:00 03/19/18 09:16 Pacerone PO 200 mg DAILY MYNOR Administration Apixaban 2.5 mg 03/17/18 21:00 03/19/18 09:16 Eliquis PO 2.5 mg BID MYNOR Administration Bisacodyl 10 mg 03/17/18 18:58 Dulcolax RECTALLY DAILY PRN Constipation Bumetanide 2 mg 03/18/18 13:45 03/19/18 13:00 Bumex 1 Mg/4 Ml Inj. IVP 2 mg Q8H MYNOR Administration Cholecalciferol 1,000 unit 03/18/18 09:00 03/19/18 09:16 Vit. D-3 PO 1,000 unit DAILY MYNOR Administration Ceftriaxone Sodium 1 g/ Sodium 100 mls @ 200 mls/hr 03/17/18 18:58 03/19/18 09:47 Chloride IV Infused Q24H MYNOR Infusion Metoprolol Tartrate 50 mg 03/18/18 08:00 03/19/18 09:17 Lopressor PO 50 mg BIDWM MYNOR Administration Nifedipine 60 mg 03/18/18 09:00 03/19/18 09:15 Procardia Xl PO 60 mg DAILY MYNOR Administration Ondansetron HCl 4 mg 03/17/18 18:58 Zofran Odt Tablet PO Q6H PRN Nausea &/or vomiting Pantoprazole Sodium 40 mg 03/18/18 06:30 03/19/18 05:55 Protonix Tab PO 40 mg ACB MYNOR Administration Polyethylene Glycol 17 gm 03/18/18 09:00 03/19/18 09:16 Miralax PO 17 gm DAILY MYNOR Administration Potassium Chloride 20 meq 03/18/18 17:50 03/19/18 13:00 K-Dur 20 Meq Tablet PO 20 meq TIDWM MYNOR Administration Senna/Docusate Sodium 2 tab 03/18/18 09:00 03/19/18 09:16 Senna Plus Tablet PO 2 tab DAILY MYNOR Administration Simethicone 80 mg 03/17/18 18:58 Mylicon PO Q2H PRN Gas Sodium Chloride 10 - 80 ml 03/17/18 16:32 03/19/18 09:19 Iv Flush IVF 10 ml PRN PRN Administration Flushing Sodium Chloride 500 ml 03/17/18 20:18 03/19/18 09:19 Normal Saline IV 500 ml PRN PRN Administration Tramadol HCl 50 mg 03/17/18 18:58 Ultram PO BID PRN Pain Discontinued Medications Generic Name Dose Route Start Last Admin Trade Name Freq PRN Reason Stop Dose Admin Bumetanide 1 mg 03/17/18 18:58 03/17/18 20:19 Bumex 1 Mg/4 Ml Inj. IVP 03/17/18 18:59 1 mg O ONE Administration Bumetanide 1 mg 03/18/18 08:00 03/18/18 08:53 Bumex 1 Mg/4 Ml Inj. IVP 1 mg 0800,1500 MYNOR Administration Magnesium Sulfate/Dextrose 1 gm in 100 mls @ 100 mls/hr 03/18/18 10:30 14:28 Mag Sulf 1gm Premix IV 03/18/18 12:29 Infused Q1H MYNOR Infusion - Constitutional no acute distress, morbidly obese, cooperative - Routine HEENT Exam Head: Present: normocephalic ENT: Present: mucous membranes moist - Routine Neck Exam Absent: JVD, carotid bruit - Routine Chest/Breast/Axilla Exam Chest wall: Absent: tenderness - Routine Respiratory Exam Present: CTA bilaterally, diminished air movement. Absent: dyspnea, wheezes - Routine Cardiovascular Exam Present: RRR, no murmur - Routine Abdominal Exam Present: soft, non tender - Routine Extremities Exam Present: edema - Routine Skin Exam Present: intact, dry, warm - Routine Neurological Exam Present: alert, oriented X3 - Routine Psychiatric Exam Present: normal affect, normal thought process - Urinary Catheter Management Urethral Cath placed during this visit: yes Insertion date: 03/18/18 Insertion time: 14:15 Results 03/20/18 04:29 03/20/18 04:29 CBC 03/19/18 Range/Units 04:35 WBC 7.3 (4.5-11.0) T/MM3 RBC 3.14 L (4.00-5.20) M/MM3 Hgb 9.3 L (12-16) GM/DL Hct 30.0 L (36-46) % Plt Count 321 (130-400) T/MM3 Neut # (Auto) 5.1 (1.8-7.7) T/MM3 Lymph # (Auto) 1.4 (1-4.8) T/MM3 [place] # (Auto) 0.5 (0-0.8) T/MM3 Eos # (Auto) 0.2 (0-0.5) T/MM3 Baso # (Auto) 0.0 (0-0.2) T/MM3 Comprehensive Metabolic Panel 03/19/18 03/19/18 Range/Units 04:35 05:52 Sodium Cancelled 146 H Potassium Cancelled 4.4 Chloride Cancelled 107 Carbon Dioxide Cancelled 27 BUN Cancelled 47.0 H Creatinine Cancelled 2.8 H D Glucose Cancelled 99 Calcium Cancelled 8.5 Intake and Output 03/19/18 03/19/18 03/19/18 06:59 14:59 22:59 Intake Total 450 / 450 550 / 550 Output Total 900 / 900 850 / 850 Balance -450 / -450 -300 / -300 Intake: IV 100 / 100 Ceftriaxone 1 g In Ns 100 ml @ 100 / 100 200 mls/hr IV Q24H [facility] Rx#: [id number] Oral 450 / 450 450 / 450 Output: Urine Amount (Catheter) 900 / 900 850 / 850 Other: Urine Appearance Clear Clear Urine Color Yellow Pale Yellow Urine Odor Normal Weight 364 lb 13.84 oz Patient Weight 03/20/18 06:59 Weight 364 lb 13.84 oz Assessment and Plan - Assessment and Plan (1) Acute on chronic respiratory failure with hypoxemia Status: Resolved (2) Chronic kidney disease Status: Chronic (3) Essential (primary) hypertension Status: Chronic (4) Mixed hyperlipidemia Status: Chronic (5) Morbid obesity with BMI of 50.0-59.9, adult Status: Chronic (6) PAF (paroxysmal atrial fibrillation) Status: Chronic (7) Diastolic CHF, acute on chronic Status: Acute - Assessment and Plan 03/18/18 Diastolic CHF, acute on chronic Current visit: No Status: Acute - Bumex 2mg IV Q8H - Monitor renal and electrolytes Acute on chronic respiratory failure with hypoxemia Current visit: No Status: Resolved Chronic kidney disease Current visit: No Status: Chronic Essential (primary) hypertension Current visit: No Status: Chronic - Suboptimal control. wait and monitor with increased diuresis - may consider increasing Nifedipine if needed Mixed hyperlipidemia Current visit: No Status: Chronic Morbid obesity with BMI of 50.0-59.9, adult Current visit: No Status: Chronic PAF (paroxysmal atrial fibrillation) Current visit: No Status: Chronic - Continue Amiodarone - continue Eliquis 2.5mg per pharmacy recommendation due to elevated creatinine Thank you for allowing us to participate in the care of this patient 03/19/18 BUN 47/SCr 2.8 - Continue same diuretic today - CXR in am per attending Hospital Course Summary Disclaimer: The visit summary below is not to be considered part of the above Progress Note. Hospital Course: 03/17/18 Admit, OBS O2 supplementation PRN. Home Bipap at hs and PRN. Start Rocephin given SIRS criteria and possibility of PNA. IV Bumex for diuresis - 1mg IV BID (0800/1500). Continue Eliquis for PAF and VTE ppx. Telemetry. OT/PT to assess functional status. Glucose was stable last visit and A1c is reportedly <7, will not do routine accuchecks. Monitor glucose with daily labs. Labs in am to follow blood counts, renal function and electrolytes, Mg level and trend troponin. Daily weights/I&O's to monitor fluid status. Code status: She states that she does want CPR and defib/meds if necessary but does not want intubation nor mechanical ventilation. She does not want a prolonged resuscitative episode. Care to return to Dr. Joshi on D/C. 03/18/18 On baseline oxygen and bi-pap She is currently on IV Bumex- monitor fluid balance Leukocytosis was resolved. Hgb slightly decreased however stable Persistent hypernatremia at 147 Continue Eliquis for PAF and VTE ppx. Currently remains observations status. Will wait for PT/OT to evaluate and recommendation Case discussed with CM, PT, attending <Spencer Johnson - Last Filed: 03/25/18 13:44> Exam Vital signs: Temperature 95.5 F L 03/20/18 19:49 Pulse Rate 84 03/20/18 19:49 Respiratory Rate 22 03/20/18 19:49 Blood Pressure 159/75 H 03/20/18 19:49 Pulse Oximetry 93 03/20/18 19:49 Inpatient Medications: Discontinued Medications Generic Name Dose Route Start Last Admin Trade Name Freq PRN Reason Stop Dose Admin Acetaminophen 1,000 mg 03/17/18 18:58 03/20/18 14:20 Tylenol PO 1,000 mg TID PRN Administration Pain Hydrocodone Bitart/Acetaminophen 1 tab 03/17/18 18:58 03/20/18 04:01 Sumrall 5/325 PO 1 tab Q4H PRN Administration Pain Amiodarone HCl 200 mg 03/18/18 09:00 03/20/18 09:05 Pacerone PO 200 mg DAILY MYNOR Administration Apixaban 2.5 mg 03/17/18 21:00 03/20/18 09:06 Eliquis PO 2.5 mg BID MYNOR Administration Bisacodyl 10 mg 03/17/18 18:58 Dulcolax RECTALLY DAILY PRN Constipation Bumetanide 1 mg 03/17/18 18:58 03/17/18 20:19 Bumex 1 Mg/4 Ml Inj. IVP 03/17/18 18:59 1 mg O ONE Administration Bumetanide 1 mg 03/18/18 08:00 03/18/18 08:53 Bumex 1 Mg/4 Ml Inj. IVP 1 mg 0800,1500 MYNOR Administration Bumetanide 2 mg 03/18/18 13:45 03/20/18 12:45 Bumex 1 Mg/4 Ml Inj. IVP 2 mg Q8H MYNOR Administration Cholecalciferol 1,000 unit 03/18/18 09:00 03/20/18 09:05 Vit. D-3 PO 1,000 unit DAILY MYNOR Administration Ceftriaxone Sodium 1 g/ Sodium 100 mls @ 200 mls/hr 03/17/18 18:58 03/20/18 09:37 Chloride IV Infused Q24H MYNOR Infusion Magnesium Sulfate/Dextrose 1 gm in 100 mls @ 100 mls/hr 03/18/18 10:30 14:28 Mag Sulf 1gm Premix IV 03/18/18 12:29 Infused Q1H MYNOR Infusion Metoprolol Tartrate 50 mg 03/18/18 08:00 03/20/18 17:34 Lopressor PO 50 mg BIDWM MYNOR Administration Nifedipine 60 mg 03/18/18 09:00 03/20/18 09:05 Procardia Xl PO 60 mg DAILY MYNOR Administration Ondansetron HCl 4 mg 03/17/18 18:58 Zofran Odt Tablet PO Q6H PRN Nausea &/or vomiting Pantoprazole Sodium 40 mg 03/18/18 06:30 03/20/18 05:54 Protonix Tab PO 40 mg ACB MYNOR Administration Polyethylene Glycol 17 gm 03/18/18 09:00 03/20/18 09:05 Miralax PO 17 gm DAILY MYNOR Administration Potassium Chloride 20 meq 03/18/18 17:50 03/20/18 17:34 K-Dur 20 Meq Tablet PO 20 meq TIDWM MYNOR Administration Senna/Docusate Sodium 2 tab 03/18/18 09:00 03/20/18 09:05 Senna Plus Tablet PO 2 tab DAILY MYNOR Administration Simethicone 80 mg 03/17/18 18:58 Mylicon PO Q2H PRN Gas Sodium Chloride 10 - 80 ml 03/17/18 16:32 03/20/18 05:54 Iv Flush IVF 30 ml PRN PRN Administration Flushing Sodium Chloride 500 ml 03/17/18 20:18 03/19/18 09:19 Normal Saline IV 500 ml PRN PRN Administration Tramadol HCl 50 mg 03/17/18 18:58 Ultram PO BID PRN Pain - Urinary Catheter Management Urethral Cath placed during this visit: no Results 03/20/18 04:29 03/20/18 04:29 Assessment and Plan - Assessment and Plan (1) Chronic kidney disease Status: Chronic (2) Essential (primary) hypertension Status: Chronic (3) Mixed hyperlipidemia Status: Chronic (4) Morbid obesity with BMI of 50.0-59.9, adult Status: Chronic (5) PAF (paroxysmal atrial fibrillation) Status: Chronic (6) Acute on chronic respiratory failure with hypoxemia Status: Resolved (7) Diastolic CHF, acute on chronic Status: Acute - Attestation Attestation Narrative: 03/25/18 13:44 Recommendation After examining the patient I agree with the above assessment. I am involved in the formulation of the patient's plan of care. Hospital Course Summary Disclaimer: The visit summary below is not to be considered part of the above Progress Note.
[2018-03-19] MEDS: HYDROCODONE/APAP 5mg/325mg TABLET PO PRN (20:34)
[2018-03-20] MEDS: HYDROCODONE/APAP 5mg/325mg TABLET PO PRN (04:01)
[2018-03-20] MEDS: --POM--PANTOPRAZOLE 40 MG TABLET PO SCH (05:54)
[2018-03-20] MEDS: SALINE FLUSH 10ml SYRINGE IVF PRN (05:54)
[2018-03-20] MEDS: --POM--AMIODARONE 200 MG TABLET PO SCH (09:05)
[2018-03-20] MEDS: POLYETHYL GLYCOL 3350 17gm PACKET PO SCH (09:05)
[2018-03-20] MEDS: CHOLECALCIFEROL PO SCH (09:05)
[2018-03-20] MEDS: SENNA + DOCUSATE TABLET PO SCH (09:05)
[2018-03-20] MEDS: --POM--METOPROLOL TARTRATE 50mg TABLET PO SCH ×2 (09:05→17:34)
[2018-03-20] MEDS: --POM--NIFEdipine XL 60 MG TABLET PO SCH (09:05)
[2018-03-20] MEDS: APIXABAN 2.5 MG PO SCH (09:06)
--- NOTE | 2018-03-20 09:06 | XRay Report ---
Indication: CHF PROCEDURE: XR chest 1V: Encounter: Initial Comparison: Chest CT dated March 17, 2018 Findings: Pulmonary edema has improved. No new or worsening consolidation. Trace right pleural effusion. No pneumothorax. Heart size and mediastinal contours are stable. Impression: Improving congestive failure. .
[2018-03-20] MEDS: CEFTRIAXONE 1 G in NS 100 ML IV SCH (09:07)
[2018-03-20] MEDS: ACETAMINOPHEN 500 MG TABLET PO PRN ×2 (09:23→14:20)
--- NOTE | 2018-03-20 12:06 | Cardiology Progress Note ---
<Montse Valenzuela M - Last Filed: 03/20/18 15:17> Subjective Principal diagnosis: dyspnea Interval history: Sully is seen in follow up for DCHF and dyspnea. She is in her bed on c-pap. She denies dyspnea, chest pain or palpitations. Exam Vital signs: Temperature 97.0 F 03/20/18 08:00 Pulse Rate 71 03/20/18 08:00 Respiratory Rate 16 03/20/18 08:00 Blood Pressure 152/69 H 03/20/18 08:00 Pulse Oximetry 94 03/20/18 08:00 Inpatient Medications: Generic Name Dose Route Start Last Admin Trade Name Freq PRN Reason Stop Dose Admin Acetaminophen 1,000 mg 03/17/18 18:58 03/20/18 09:23 Tylenol PO 1,000 mg TID PRN Administration Pain Hydrocodone Bitart/Acetaminophen 1 tab 03/17/18 18:58 03/20/18 04:01 Arnold 5/325 PO 1 tab Q4H PRN Administration Pain Amiodarone HCl 200 mg 03/18/18 09:00 03/20/18 09:05 Pacerone PO 200 mg DAILY MYNOR Administration Apixaban 2.5 mg 03/17/18 21:00 03/20/18 09:06 Eliquis PO 2.5 mg BID MYNOR Administration Bisacodyl 10 mg 03/17/18 18:58 Dulcolax RECTALLY DAILY PRN Constipation Bumetanide 2 mg 03/18/18 13:45 03/20/18 05:54 Bumex 1 Mg/4 Ml Inj. IVP 2 mg Q8H MYNOR Administration Cholecalciferol 1,000 unit 03/18/18 09:00 03/20/18 09:05 Vit. D-3 PO 1,000 unit DAILY MYNOR Administration Ceftriaxone Sodium 1 g/ Sodium 100 mls @ 200 mls/hr 03/17/18 18:58 03/20/18 09:07 Chloride IV 200 mls/hr Q24H MYNOR Administration Metoprolol Tartrate 50 mg 03/18/18 08:00 03/20/18 09:05 Lopressor PO 50 mg BIDWM MYNOR Administration Nifedipine 60 mg 03/18/18 09:00 03/20/18 09:05 Procardia Xl PO 60 mg DAILY MYNOR Administration Ondansetron HCl 4 mg 03/17/18 18:58 Zofran Odt Tablet PO Q6H PRN Nausea &/or vomiting Pantoprazole Sodium 40 mg 03/18/18 06:30 03/20/18 05:54 Protonix Tab PO 40 mg ACB MYNOR Administration Polyethylene Glycol 17 gm 03/18/18 09:00 03/20/18 09:05 Miralax PO 17 gm DAILY MYNOR Administration Potassium Chloride 20 meq 03/18/18 17:50 03/20/18 09:06 K-Dur 20 Meq Tablet PO 20 meq TIDWM MYNOR Administration Senna/Docusate Sodium 2 tab 03/18/18 09:00 03/20/18 09:05 Senna Plus Tablet PO 2 tab DAILY MYNOR Administration Simethicone 80 mg 03/17/18 18:58 Mylicon PO Q2H PRN Gas Sodium Chloride 10 - 80 ml 03/17/18 16:32 03/20/18 05:54 Iv Flush IVF 30 ml PRN PRN Administration Flushing Sodium Chloride 500 ml 03/17/18 20:18 03/19/18 09:19 Normal Saline IV 500 ml PRN PRN Administration Tramadol HCl 50 mg 03/17/18 18:58 Ultram PO BID PRN Pain Discontinued Medications Generic Name Dose Route Start Last Admin Trade Name Freq PRN Reason Stop Dose Admin Bumetanide 1 mg 03/17/18 18:58 03/17/18 20:19 Bumex 1 Mg/4 Ml Inj. IVP 03/17/18 18:59 1 mg O ONE Administration Bumetanide 1 mg 03/18/18 08:00 03/18/18 08:53 Bumex 1 Mg/4 Ml Inj. IVP 1 mg 0800,1500 MYNOR Administration Magnesium Sulfate/Dextrose 1 gm in 100 mls @ 100 mls/hr 03/18/18 10:30 14:28 Mag Sulf 1gm Premix IV 03/18/18 12:29 Infused Q1H MYNOR Infusion - Constitutional no acute distress, morbidly obese, cooperative - Routine HEENT Exam Head: Present: normocephalic ENT: Present: mucous membranes moist - Routine Neck Exam Absent: JVD, carotid bruit - Routine Chest/Breast/Axilla Exam Chest wall: Absent: tenderness - Routine Respiratory Exam Present: CTA bilaterally, diminished air movement - Routine Cardiovascular Exam Present: RRR, no murmur - Routine Abdominal Exam Present: soft, non tender - Routine Extremities Exam Present: edema - Routine Skin Exam Present: intact, dry, warm - Routine Neurological Exam Present: alert, oriented X3 - Routine Psychiatric Exam Present: normal affect, normal thought process - Urinary Catheter Management Urethral Cath placed during this visit: yes Insertion date: 03/18/18 Insertion time: 14:15 Results 03/20/18 04:29 03/20/18 04:29 CBC 03/20/18 Range/Units 04:29 WBC 7.1 (4.5-11.0) T/MM3 RBC 3.38 L (4.00-5.20) M/MM3 Hgb 9.7 L (12-16) GM/DL Hct 32.5 L (36-46) % Plt Count 409 H (130-400) T/MM3 Neut # (Auto) 4.4 (1.8-7.7) T/MM3 Lymph # (Auto) 1.7 (1-4.8) T/MM3 [place] # (Auto) 0.6 (0-0.8) T/MM3 Eos # (Auto) 0.3 (0-0.5) T/MM3 Baso # (Auto) 0.0 (0-0.2) T/MM3 Comprehensive Metabolic Panel 03/20/18 Range/Units 04:29 Sodium 146 H (134-144) MEQ/L Potassium 4.6 (3.6-5) MEQ/L Chloride 108 H (98-107) MEQ/L Carbon Dioxide 28 (22-30) MEQ/L BUN 46.0 H (7-17) MG/DL Creatinine 2.7 H (0.7-1.2) mg/dL Glucose 96 (65-110) MG/DL Calcium 8.5 (8.4-10.2) MG/DL Intake and Output 03/19/18 03/20/18 03/20/18 22:59 06:59 14:59 Intake Total 670 / 670 500 / 500 240 / 240 Output Total 1200 / 1200 850 / 850 Balance -530 / -530 -350 / -350 240 / 240 Intake: Oral 670 / 670 500 / 500 240 / 240 Output: Urine Amount (Catheter) 1200 / 1200 850 / 850 Other: Urine Appearance Clear Urine Color Yellow Urine Odor Strong Stool Color Brown Stool Consistency Liquid Size of Bowel Movement Large # Bowel Movements 1 - Imaging and Cardiology Imaging & Cardiology Narrative: Date of Exam: 03/20/18 Ordering Provider: Susan Clarke MD Type of Exam(s): XR chest 1V Reason for Exam(s): CHF Indication: CHF PROCEDURE: XR chest 1V: Encounter: Initial Comparison: Chest CT dated March 17, 2018 Findings: Pulmonary edema has improved. No new or worsening consolidation. Trace right pleural effusion. No pneumothorax. Heart size and mediastinal contours are stable. Impression: Improving congestive failure. 03/20/18 12:06 Assessment and Plan - Assessment and Plan (1) Acute on chronic respiratory failure with hypoxemia Status: Resolved (2) Chronic kidney disease Status: Chronic (3) Essential (primary) hypertension Status: Chronic (4) Mixed hyperlipidemia Status: Chronic (5) Morbid obesity with BMI of 50.0-59.9, adult Status: Chronic (6) PAF (paroxysmal atrial fibrillation) Status: Chronic (7) Diastolic CHF, acute on chronic Status: Acute - Assessment and Plan 03/18/18 Diastolic CHF, acute on chronic Current visit: No Status: Acute - Bumex 2mg IV Q8H - Monitor renal and electrolytes Acute on chronic respiratory failure with hypoxemia Current visit: No Status: Resolved Chronic kidney disease Current visit: No Status: Chronic Essential (primary) hypertension Current visit: No Status: Chronic - Suboptimal control. wait and monitor with increased diuresis - may consider increasing Nifedipine if needed Mixed hyperlipidemia Current visit: No Status: Chronic Morbid obesity with BMI of 50.0-59.9, adult Current visit: No Status: Chronic PAF (paroxysmal atrial fibrillation) Current visit: No Status: Chronic - Continue Amiodarone - continue Eliquis 2.5mg per pharmacy recommendation due to elevated creatinine Thank you for allowing us to participate in the care of this patient 03/19/18 BUN 47/SCr 2.8 - Continue same diuretic today - CXR in am per attending 03/20/18 BUN 46/SCr2.7 Hospital Course Summary Disclaimer: The visit summary below is not to be considered part of the above Progress Note. Hospital Course: 03/17/18 Admit, OBS O2 supplementation PRN. Home Bipap at hs and PRN. Start Rocephin given SIRS criteria and possibility of PNA. IV Bumex for diuresis - 1mg IV BID (0800/1500). Continue Eliquis for PAF and VTE ppx. Telemetry. OT/PT to assess functional status. Glucose was stable last visit and A1c is reportedly <7, will not do routine accuchecks. Monitor glucose with daily labs. Labs in am to follow blood counts, renal function and electrolytes, Mg level and trend troponin. Daily weights/I&O's to monitor fluid status. Code status: She states that she does want CPR and defib/meds if necessary but does not want intubation nor mechanical ventilation. She does not want a prolonged resuscitative episode. Care to return to Dr. Joshi on D/C. 03/18/18 On baseline oxygen and bi-pap She is currently on IV Bumex- monitor fluid balance Leukocytosis was resolved. Hgb slightly decreased however stable Persistent hypernatremia at 147 Continue Eliquis for PAF and VTE ppx. Currently remains observations status. Will wait for PT/OT to evaluate and recommendation Case discussed with CM, PT, attending <Spencer Johnson - Last Filed: 03/25/18 13:57> Exam Vital signs: Temperature 95.5 F L 03/20/18 19:49 Pulse Rate 84 03/20/18 19:49 Respiratory Rate 22 03/20/18 19:49 Blood Pressure 159/75 H 03/20/18 19:49 Pulse Oximetry 93 03/20/18 19:49 Inpatient Medications: Discontinued Medications Generic Name Dose Route Start Last Admin Trade Name Freq PRN Reason Stop Dose Admin Acetaminophen 1,000 mg 03/17/18 18:58 03/20/18 14:20 Tylenol PO 1,000 mg TID PRN Administration Pain Hydrocodone Bitart/Acetaminophen 1 tab 03/17/18 18:58 03/20/18 04:01 Arnold 5/325 PO 1 tab Q4H PRN Administration Pain Amiodarone HCl 200 mg 03/18/18 09:00 03/20/18 09:05 Pacerone PO 200 mg DAILY MYNOR Administration Apixaban 2.5 mg 03/17/18 21:00 03/20/18 09:06 Eliquis PO 2.5 mg BID MYNOR Administration Bisacodyl 10 mg 03/17/18 18:58 Dulcolax RECTALLY DAILY PRN Constipation Bumetanide 1 mg 03/17/18 18:58 03/17/18 20:19 Bumex 1 Mg/4 Ml Inj. IVP 03/17/18 18:59 1 mg O ONE Administration Bumetanide 1 mg 03/18/18 08:00 03/18/18 08:53 Bumex 1 Mg/4 Ml Inj. IVP 1 mg 0800,1500 MYNOR Administration Bumetanide 2 mg 03/18/18 13:45 03/20/18 12:45 Bumex 1 Mg/4 Ml Inj. IVP 2 mg Q8H MYNOR Administration Cholecalciferol 1,000 unit 03/18/18 09:00 03/20/18 09:05 Vit. D-3 PO 1,000 unit DAILY MYNOR Administration Ceftriaxone Sodium 1 g/ Sodium 100 mls @ 200 mls/hr 03/17/18 18:58 03/20/18 09:37 Chloride IV Infused Q24H [facility] Infusion Magnesium Sulfate/Dextrose 1 gm in 100 mls @ 100 mls/hr 03/18/18 10:30 14:28 Mag Sulf 1gm Premix IV 03/18/18 12:29 Infused Q1H MY[facility] Infusion Metoprolol Tartrate 50 mg 03/18/18 08:00 03/20/18 17:34 Lopressor PO 50 mg BIDWM MYNOR Administration Nifedipine 60 mg 03/18/18 09:00 03/20/18 09:05 Procardia Xl PO 60 mg DAILY MYNOR Administration Ondansetron HCl 4 mg 03/17/18 18:58 Zofran Odt Tablet PO Q6H PRN Nausea &/or vomiting Pantoprazole Sodium 40 mg 03/18/18 06:30 03/20/18 05:54 Protonix Tab PO 40 mg ACB MYNOR Administration Polyethylene Glycol 17 gm 03/18/18 09:00 03/20/18 09:05 Miralax PO 17 gm DAILY MYNOR Administration Potassium Chloride 20 meq 03/18/18 17:50 03/20/18 17:34 K-Dur 20 Meq Tablet PO 20 meq TIDWM MYNOR Administration Senna/Docusate Sodium 2 tab 03/18/18 09:00 03/20/18 09:05 Senna Plus Tablet PO 2 tab DAILY MYNOR Administration Simethicone 80 mg 03/17/18 18:58 Mylicon PO Q2H PRN Gas Sodium Chloride 10 - 80 ml 03/17/18 16:32 03/20/18 05:54 Iv Flush IVF 30 ml PRN PRN Administration Flushing Sodium Chloride 500 ml 03/17/18 20:18 03/19/18 09:19 Normal Saline IV 500 ml PRN PRN Administration Tramadol HCl 50 mg 03/17/18 18:58 Ultram PO BID PRN Pain - Urinary Catheter Management Urethral Cath placed during this visit: no Results 03/20/18 04:29 03/20/18 04:29 Assessment and Plan - Assessment and Plan (1) Chronic kidney disease Status: Chronic (2) Essential (primary) hypertension Status: Chronic (3) Mixed hyperlipidemia Status: Chronic (4) Morbid obesity with BMI of 50.0-59.9, adult Status: Chronic (5) PAF (paroxysmal atrial fibrillation) Status: Chronic (6) Acute on chronic respiratory failure with hypoxemia Status: Resolved (7) Diastolic CHF, acute on chronic Status: Acute - Attestation Attestation Narrative: 03/25/18 13:57 Recommendation After examining the patient I agree with the above assessment. I am involved in the formulation of the patient's plan of care. Hospital Course Summary Disclaimer: The visit summary below is not to be considered part of the above Progress Note.
[2018-03-20 14:15] VITALS: BMI 56.9
[2018-03-20 15:27] VITALS: RESP 22
--- NOTE | 2018-03-20 16:21 | Progress Note ---
- Date 03/20/18 Subjective: Mrs. Arshad that she is breathing somewhat better today. She denies cough or sputum production. Her appetite is good and she denies nausea, vomiting, fever, chills, or lightheadedness. She is having some discomfort in her tailbone which she attributes to having a Velazquez catheter. Family members are at bedside and reported no new concerns other than ongoing frustration with receiving different stories regarding availability of sit-stand lift from [employer]. Objective Vital signs: Temperature 97.5 F 03/20/18 15:26 Pulse Rate 76 03/20/18 15:26 Respiratory Rate 22 03/20/18 15:26 Blood Pressure 134/68 03/20/18 15:26 Pulse Oximetry 96 - 4L/CPAP 03/20/18 15:26 I/O 1720/2900 Weight down almost 2 kg from admission NAD, alert, nasal CPAP on Conjugate gaze, conjunctiva clear Respirations nonlabored, good airflow, breath sounds clear anteriorly, faint crackles at the bases posteriorly Regular rhythm, S1-S2 Abdomen soft, obese, nontender, diminished bowel sounds Trace edema at the ankles Height/Weight/BMI: Height 1.7 m Weight 164.8 kg Body Mass Index 56.9 Results - Labs CBC & Chem 7: 03/20/18 04:29 03/20/18 04:29 - Imaging and Cardiology Chest x-ray Status: image reviewed by me (resolving CHF-trace pleural effusion on the right) Assessment and Plan (1) Acute on chronic respiratory failure with hypoxemia Current visit: No Status: Resolved Assessment and Plan: Assessment Acute on chronic respiratory failure with hypoxemia CHF exacerbation-acute on chronic diastolic B/l pleural effusions and patchy subpleural parenchymal densities b/l found on CT chest - CHF exacerbation SIRS: leukocytosis and tachypnea - possible pulm source. Leukocytosis - POA (12.6) Thrombocytosis - POA (455) Hypernatremia - POA (149) CKD Stage 4 Acute on chronic diastolic CHF PAF HTN Type 2 DM - diet controlled HLD Chronic back pain Morbid obesity, BMI 53.2 Hypomagnesemia, 03/18/18 03/19/18 Continues 4-5 liters during day. Overall saturations are better today than they were yesterday and patient did not require increased oxygen flow rate overnight last night. Chest x-ray improving, creatinine stable with diuresis and clinically symptoms improving. May require higher oxygen flow rate at discharge than in the past. Clearly needs to be out of bed at discharge to avoid future complications and deterioration. Patient has sufficient help at home between her and other family members who visit frequently to use paj-bp-[id number] lift regularly/daily and avoid complications of being bedridden. Telemetry reviewed-sinus rhythm. Continue Eliquis for PAF and VTE ppx. Discussed with cardiology; hope to discharge in the next 1-2 days. DVT Prophylaxis: Eliquis Resuscitation Status: Do Not Intubate - Physician Narrative Narrative: Date: 03/20/18 Time: 1617 Hospital Course Summary Disclaimer: The visit summary below is not to be considered part of the above Progress Note. Hospital Course: 03/17/18 Admit, OBS O2 supplementation PRN. Home Bipap at hs and PRN. Start Rocephin given SIRS criteria and possibility of PNA. IV Bumex for diuresis - 1mg IV BID (0800/1500). Continue Eliquis for PAF and VTE ppx. Telemetry. OT/PT to assess functional status. Glucose was stable last visit and A1c is reportedly <7, will not do routine accuchecks. Monitor glucose with daily labs. Labs in am to follow blood counts, renal function and electrolytes, Mg level and trend troponin. Daily weights/I&O's to monitor fluid status. Code status: She states that she does want CPR and defib/meds if necessary but does not want intubation nor mechanical ventilation. She does not want a prolonged resuscitative episode. Care to return to Dr. Joshi on D/C. 03/18/18 On baseline oxygen and bi-pap She is currently on IV Bumex- monitor fluid balance Leukocytosis was resolved. Hgb slightly decreased however stable Persistent hypernatremia at 147 Continue Eliquis for PAF and VTE ppx. Currently remains observations status. Will wait for PT/OT to evaluate and recommendation Case discussed with CM, PT, attending 03/19/18 Continues 4-5 liters during day. Did require up to 8L with C-pap overnight. 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 Appreciated cardiology consultation JOSE working with [employer] to get home sit-stand 03/20/18 Continues 4-5 liters during day. Overall saturations are better today than they were yesterday and patient did not require increased oxygen flow rate overnight last night. Chest x-ray improving, creatinine stable with diuresis and clinically symptoms improving. May require higher oxygen flow rate at discharge than in the past. Clearly needs to be out of bed at discharge to avoid future complications and deterioration. Patient has sufficient help at home between her and other family members who visit frequently to use ixx-kq-wilem lift regularly/daily and does avoid complications of being bedridden.
[2018-03-20 19:52] VITALS: BP 159/75; PULSE 84; TEMP 95.5; O2SAT 93
--- NOTE | 2018-03-20 23:31 | Discharge Summary ---
Discharge Information Date of admission: 03/18/18 16:03 Anticipated date of discharge: 03/20/18 Attending Physician: Susan Clarke MD Primary care physician: SHERYL Dee Consults: Dr. Ernie Johnson - Discharge Diagnosis (1) Acute on chronic respiratory failure with hypoxemia Status: Resolved Acute on chronic respiratory failure with hypoxemia CHF exacerbation-acute on chronic diastolic SIRS: leukocytosis and tachypnea - possible pulm source. Leukocytosis - POA (12.6) Thrombocytosis - POA (455) Hypernatremia - POA (149) CKD Stage 4 Acute on chronic diastolic CHF PAF HTN Type 2 DM - diet controlled HLD Chronic back pain Morbid obesity, BMI 53.2 Hypomagnesemia - Laboratory Labs: On admission (03/17/18) white count 12.6 with unremarkable differential, proBNP 4040, and creatinine 2.6 with BUN 48 03/20/18 04:29 03/20/18 04:29 - Radiology Radiology: CT chest without contrast on 03/17/18: Patchy peripheral consolidation in the right upper lobe and both lower lobes with small pleural effusions. Interlobular septal thickening. Motion artifact. The central airways are patent. No axillary adenopathy. Possibly reactive paratracheal nodes. Heart size is normal. No pericardial effusion. Upper abdomen shows no acute findings. Bone windows show no acute findings. Impression: Findings suggesting at least moderate pulmonary edema. Superimposed pneumonia cannot be entirely excluded. Recommend clinical and laboratory correlation. ----- Chest x-ray on 03/20/18 revealed resolution of pulmonary edema with residual trace right pleural effusion. Improving congestive heart failure. History of Present Illness HPI: Patient is a 67 yo female who presents to ED with progressive SOA yue over the past 3 days. She was dismissed from IRU approx 3 wks ago and reports she never got the bdh-ok-efzab lift so she hasn't been out of bed. She usually uses 2L O2 at home and has been using 3-4 lately. Sleeps with Bipap. States she has been in touch with Dr. Johnson but she isn't getting better. She takes Lasix PRN and took 40mg this am and took 20 mg on 03/12/18. She lives at home w/ her . Her PCP is Dr. Joshi who comes to her house and is out of [place]. W -u in ER revealed WBC of 12.6, Creatinine 2.6 (baseline for her), and elevated BNP. CT chest with b/l pleural effusions and patchy subpleural parenchymal densities. She was admitted for observation under the hospitalist service. Objective Vital signs: Temperature 95.5 F L 03/20/18 19:49 Pulse Rate 84 03/20/18 19:49 Respiratory Rate 22 03/20/18 19:49 Blood Pressure 159/75 H 03/20/18 19:49 Pulse Oximetry 93 03/20/18 19:49 NAD, alert, nasal CPAP on Conjugate gaze, conjunctiva clear Respirations nonlabored, good airflow, breath sounds clear anteriorly, faint crackles at the bases posteriorly Regular rhythm, S1-S2 Abdomen soft, obese, nontender, diminished bowel sounds Trace edema at the ankles Height/Weight/BMI: Height 1.7 m Weight 164.8 kg Body Mass Index 56.9 Hospital Course This is a general summary of the patient's hospital course. For more details refer to the complete medical record. Hospital course: 03/17/18 Admit, OBS O2 supplementation PRN/titrate to maintain saturation > 90%. Home Bipap at hs and PRN. Start Rocephin given SIRS criteria and possibility of PNA. IV Bumex for diuresis - 1mg IV BID (0800/1500). Continue Eliquis for PAF and VTE ppx. Telemetry. OT/PT to assess functional status. Glucose was stable last visit and A1c is reportedly <7, will not do routine accuchecks. Monitor glucose with daily labs. Labs in am to follow blood counts, renal function and electrolytes, Mg level and trend troponin. Daily weights/I&O's to monitor fluid status. Code status: She states that she does want CPR and defib/meds if necessary but does not want intubation nor mechanical ventilation. She does not want a prolonged resuscitative episode. Care to return to Dr. Joshi on D/C. 03/18/18 On 4 L oxygen (generally uses 2-3 L). She is currently on IV Bumex- monitor fluid balance Leukocytosis was resolved. Hgb slightly decreased however stable Continue Eliquis for PAF and VTE ppx. Dr. Johnson consulted for assistance with management of heart failure. Converted to inpatient status due to hypoxia/CHF. Will wait for PT/OT to evaluate and recommendation Case discussed with CM, PT, attending 03/19/18 Continues 4-5 liters during day. Did require up to 8L with C-pap overnight. 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 Appreciated cardiology consultation- diuresis continues, legs softer. CM working with [employer] company to get home sit-stand 03/20/18 Continues 4-5 liters during day. Overall saturations are better today than they were yesterday and patient did not require increased oxygen flow rate overnight last night. Chest x-ray improving, creatinine stable with diuresis and clinically symptoms improving. Patient will require 3-4 L oxygen at discharge. Clearly needs to be out of bed at discharge to avoid future complications and deterioration. Axp-wx-ynpdl lift delivered to patient's home late this afternoon at which time patient and family felt she could safely discharge. Edema has clearly improved and weight is down 2 kg from admission with discharge weight 164.8 kg. Antibiotics were discontinued at discharge as there was no strong clinical indication of pneumonia based on radiographic review, symptoms, or laboratory data. She will discharge with 40 mg of Lasix daily and instructions to double that dose if she begins noticing increasing edema in her legs or increasing weight. She monitors oxygen at home and will titrate oxygen if needed. [facility] with BMP/magnesium to be drawn next Friday and results forwarded to Dr. Johnson. Time spent with patient: discharge greater than 30 minutes Resuscitation Status: Do Not Intubate Discharge Plan - Discharge Disposition Discharge Date: 03/20/18 Disposition: [facility] Service *Condition: Stable Reason For Visit (Visit label in EMR): Dyspnea, hypoxia - Discharge Medications *Discharge Medications: New Furosemide [Lasix 40 mg Tab] 1 tab PO DAILY #30 tab Continue Linaclotide [Linzess] 145 mcg PO DAILY Peg 3350 238 G Bottle [Miralax] 17 gm PO DAILY Amiodarone [Pacerone] 200 mg PO DAILY #30 tab Apixaban [Eliquis] 2.5 mg PO BID #60 tab Metoprolol Tartrate [Lopressor] 50 mg PO BIDWM #60 tab NIFEdipine XL [Procardia Xl] 60 mg PO DAILY #30 tab Senna + Docusate [Senna Plus Tablet] 2 tab PO DAILY tab Simethicone [Mylicon] 80 mg PO Q2H PRN tab.chew PRN Reason: Gas Tramadol [Ultram] 50 mg PO BID PRN #30 tab PRN Reason: Pain Hydrocodone/APAP 5/325 [Ball 5/325] 1 tab PO Q4H PRN PRN Reason: Pain Cholecalciferol [Vit. D-3] 1,000 unit PO DAILY tab Pantoprazole Tab [Protonix Tab] 40 mg PO ACB #30 tab Acetaminophen [Acetaminophen Extra Strength] 1,000 mg PO TID PRN PRN Reason: Pain Discontinued Furosemide [Lasix 20 mg Tab] 20 mg PO DAILY PRN tab PRN Reason: fluid retention - Discharge Packet/Instructions *Diet: low salt, limit fluid intake to no more than 2 liters of fluid daily *Activity: up in chair several hours daily--more is better for your lungs *Pain Management/Treatment: Tylenol, Ball, or tramadol as per medication list *Wound Care: Not applicable Additional Instructions: Take furosemide 40 mg every day; if swelling in your legs or hands is increasing or if your weight increases by 3 pounds in 24 hours or 5 pounds in a week contact Dr. Johnson or your primary care physician for instructions. If unable to contact physician increase furosemide to 80 mg a day until you're able to contact physician for further instructions. Increase oxygen flow rate to 4 L, you may titrate oxygen saturation as needed to maintain saturation above 90%. May be able to decrease to 3 L based on saturations today. You will need to have electrolytes checked next week (a BMP) and this order will be called to your home health company. *Expected Signs/Symptoms: Shortness of breath with activity *Notify Physician if: Oxygen demand increases, weight increases as described above, you have more trouble breathing than what you consider normal for you, or you have fever *During Business Hours Contact: Dr. Johnson's office or Dr. Gonsales's office *After Business Hours Contact: Call [facility] at [phone] and ask that the on-call physician be paged *Pending Lab/Results: No Pending Lab - Referrals/Follow Up *Referrals/Follow Up: Spencer Johnson MD [Physician] - (As previously scheduled when you discharged from rehabilitation) Tevin Gonsales PA [Primary Care Provider] - (Within one week if possible) - Patient Handouts - Dismissal Complete Discharge Instructions are:: Complete Physician Narrative - Narrative Attestation Narrative: Date: 03/20/18 Time: 6710
== END 2018-03-20 20:30 | disposition home health service (06) | DRG 291 ==
LOC: EDHOLD 16:07 → ED 16:07 → SUATTDRO 18:07 → MED 18:40
PROVIDERS: ADMIT Hospitalist; ATTEND Internal Medicine

== ENCOUNTER 2018-05-11 10:42 | Inpatient (IN) ==
--- NOTE | 2018-05-11 11:06 | Emergency Department Report ---
General Adult HPI - General Chief complaint: Shortness of Breath/Dyspnea Stated complaint: diff breathing Time Seen by Provider: 05/11/18 11:04 Source: patient, EMS Mode of arrival: EMS Limitations: no limitations - History of Present Illness HPI narrative: 68 F presents to the emergency department with a chief complaint of shortness of breath. Patient was being treated for bronchitis when her symptoms began 1 week ago with [facility]. She has noted a gradual increasing needed her requirement for oxygen past week. She is normally on approximately 2 -3 L nasal cannula at home. She has increased to 6 L at home and upon arrival to the emergency department was placed on BiPAP with an albuterol nebulizer treatment. Patient denies any current pain or discomfort. She does note feeling like her abdomen may be slightly distended. She was at home when her symptoms began. Symptoms have been persistent in nature since onset. No other complaints or associated symptoms. - Related Data Home Medications Medication Instructions Recorded Confirmed Linaclotide [Linzess] 145 mcg PO DAILY 01/14/18 05/11/18 Peg 3350 238 G Bottle [Miralax] 17 gm PO DAILY 01/14/18 05/11/18 Acetaminophen [Acetaminophen Extra 1,000 mg PO TID PRN 03/17/18 05/11/18 Strength] Furosemide [Lasix 40 mg Tab] 40 mg PO DAILY 05/11/18 05/11/18 Hydrocodone/APAP 7.5/325 [[place] 1 tab PO Q8HR PRN MDD 3 05/11/18 05/11/18 7.5/325] Metoprolol Tartrate [Lopressor] 75 mg PO BIDWM 05/11/18 05/11/18 NIFEdipine XL [Procardia Xl] 90 mg PO DAILY 05/11/18 05/11/18 Previous Rx's Medication Instructions Recorded Amiodarone [Pacerone] 200 mg PO DAILY #30 tab 02/20/18 Apixaban [Eliquis] 2.5 mg PO BID #60 tab 02/20/18 Cholecalciferol [Vit. D-3] 1,000 unit PO DAILY tab 02/20/18 Pantoprazole Tab [Protonix Tab] 40 mg PO ACB #30 tab 02/20/18 Senna + Docusate [Senna Plus 2 tab PO DAILY tab 05/11/18 Tablet] Simethicone [Mylicon] 80 mg PO Q2H PRN tab.chew 02/20/18 Allergies Allergy/AdvReac Type Severity Reaction Status Date / Time doxazosin Allergy Mild Verified 05/11/18 11:04 lisinopril AdvReac Intermediate VOMITTING Verified 05/11/18 11:04 promethazine [From Phenergan] AdvReac Intermediate Muscle Verified 05/11/18 11: 04 Cramping gabapentin AdvReac Unknown Verified 05/11/18 11:04 cephalexin AdvReac Nausea Verified 05/11/18 11:05 Review of Systems Constitutional: Denies: fever, chills Eyes: Denies: eye pain, vision change ENT: Denies: ear pain, throat pain Cardiovascular: Denies: chest pain, palpitations Respiratory: Reports: cough, dyspnea Gastrointestinal: Denies: abdominal pain, nausea, vomiting, diarrhea Genitourinary: Denies: urgency, dysuria Musculoskeletal: Denies: back pain Integumentary: Denies: erythema, rash Neurological: Denies: headache, numbness, paresthesias Psychiatric: Denies: anxiety, depression Endocrine: Denies: polydipsia, polyuria Hematological/Lymphatic: Denies: easy bruising, lymphadenopathy Allergic/Immunologic: Denies: facial swelling, urticaria PFSH Patient Stated Medical History Congestive Heart Failure Yes Hypertension Yes Sleep Apnea Yes Diabetes Mellitus Type 2 Yes: CONTROLLED Hx Incontinence Yes Hx Renal Disease Yes Hx Urinary Tract Infection Yes Other Yes: CKD stage 3 Other Musculoskeletal Yes: chronic knee Cellulitis Yes Sepsis Yes Blood Transfusions Yes: when she had hysterectomy Clinic Medical History (Last Reviewed 05/11/18 @ 14:09 by Awa Almazan APRN) Chronic renal disease, stage IV (Acute Medical) Congestive heart failure (Acute Medical) Hyperlipidemia (Acute Medical) Hypertension (Acute Medical) Morbid obesity (Acute Medical) Paroxysmal atrial fibrillation (Acute Medical) Type II diabetes mellitus (Acute Medical) Medical History Updates: Type II diabetes. Chronic kidney disease-stage IV. Obesity hypoventilation syndrome. Hypercholesterolemia. Hypertension. Hyperlipidemia. Chronic diastolic heart failure. Chronic back pain. Morbid obesity- BMI 53 Surgical History: Exploratory laparotomy, lysis of adhesions and decompression colonoscopy. 11-13-2010 [facility]. Sigmoid resection (many years prior to 2010) . Colonoscopy and decompression 11/26/2010 [facility]. Hysterectomy & bilateral salpingo-oophorectomy. Right bunionectomy. Right knee arthroscopy Family History Updates: Patient reports that both of her parents of "old age." One brother had a brain tumor. Another brother had heart disease and diabetes. Sister has had hypertension. - Social History Smoking status: Never smoker Substance use type: does not use Alcohol intake: never Alcohol intake frequency: does not drink Housing: house Household members: spouse Current occupational status: retired Current residence: Apartment/Private Home Physical Exam - Limitations Limitations: no limitations - General General appearance: alert, in no apparent distress - Normal Exams: Head:: Normocephalic without trauma Eyes:: Pupils are PERRLA w/ EOMI, No scleral icterus, irritation, or foreign bodies noted ENMT:: No facial trauma, nasal exudates, pharyngeal erythema, or exudates are noted Dental: No fractured, loose, or missing teeth noted Neck:: Full range of motion, without adenopathy, JVD, bruits or thyromegaly Chest/Respirations:: Clear all [place] (diminished breath sounds bilaterally.), with good airflow, and symmetry bilaterally Cardiovascular:: Regular rate and rhythm, without murmur or gallop, Pulses 2+ all extremities, capillary refill, <2 seconds all extremities Abdomen:: Bowel sounds positive, soft, non-tender, non-distended, no hepatosplenomegaly, masses or bruits noted Lymphatic:: No lymphadenopathy, or lymphedema noted Musculoskeletal:: No tenderness, or deformity noted, good range of motion, all extremities Integumentary:: No rashes, hives, or bruising noted, hair and nails, without abnormality Neurological:: Patient is alert, and oriented, cranial nerves, motor/sensory/ cerebellar, exams w/o gross deficits, to observation Psychiatric:: Patient exhibits, appropriate attention, emotion and affect Course Vital Signs Temperature 96.8 F 05/11/18 10:45 Pulse Rate 82 05/11/18 10:45 Respiratory Rate 28 H 05/11/18 10:45 Blood Pressure 180/78 H 05/11/18 10:45 Pulse Oximetry 90 05/11/18 10:45 Temperature 99.3 F 05/11/18 14:23 Pulse Rate 82 05/11/18 17:56 Respiratory Rate 25 H 05/11/18 17:56 Blood Pressure 131/70 05/11/18 14:23 Pulse Oximetry 92 07/30/18 17:56 Medical Decision Making - [facility] Narrative Medical decision making narrative: Labs/imaging were discussed in detail with the patient and family and questions are answered. Patient was placed on BiPAP upon arrival to the emergency department and given a nebulized treatment. Patient is anticoagulated on Eliquis. Patient declined offered abdominal x-ray in the emergency department. Patient was discussed with the hospitalist Dr. Clarke and will be admitted to her service in improved condition. Patient was given a supplemental dose of Lasix in the emergency department as well. No further orders from accepting physician who is in agreement with the current plan of management. Patient is admitted to the service of the hospitalist in improved condition. - Differential Diagnosis CHF, RAD, Metabolic disorder, Respiratory failure - Lab Data Result diagrams: 05/11/18 11:27 05/11/18 11:27 Lab Results 05/11/18 05/11/18 05/11/18 Range/Units 11:17 11:27 11:27 WBC 10.4 (4.5-11.0) T/MM3 RBC 3.67 L (4.00-5.20) M/MM3 Hgb 11.2 L (12-16) GM/DL Hct 34.4 L (36-46) % MCV 93.7 (80-100) UM3 MCH 30.5 (26-34) UUG MCHC 32.6 (31-37) GM/DL RDW Std Deviation 47.4 (36.9-50.2) FL Plt Count 315 (130-400) T/MM3 MPV 10.3 (9.4-12.4) UM3 Immature Gran % (Auto) 0.6 H (0.0-0.5) % Neut % (Auto) 78.9 H (33-66) % Lymph % (Auto) 12.4 L (23-45) % [place] % (Auto) 7.5 (0-9.0) % Eos % (Auto) 0.5 (0-4) % Baso % (Auto) 0.1 (0-2) % Neut # (Auto) 8.2 H (1.8-7.7) T/MM3 Lymph # (Auto) 1.3 (1-4.8) T/MM3 [place] # (Auto) 0.8 (0-0.8) T/MM3 Eos # (Auto) 0.1 (0-0.5) T/MM3 Baso # (Auto) 0.0 (0-0.2) T/MM3 Abs Immat Gran (auto) 0.06 H (0.00-0.03) T/MM3 Turbidity < 20 (0-20) Sodium 147 H (136-146) MEQ/L Potassium 4.4 (3.6-5) MEQ/L Chloride 110 H (98-107) MEQ/L Carbon Dioxide 27 (22-30) MEQ/L Anion Gap 10 (5-15) meq/L BUN 47.0 H (7-17) MG/DL Creatinine 3.3 H (0.7-1.2) mg/dL Estimated Creat Clear 28 (>50) mL/min GFR Calculation 14 (>60) mL/min BUN/Creatinine Ratio 14 (6-26) RATIO Glucose 112 H (65-110) MG/DL Calculated Osmolality 295 H (261-280) MOSM/KG Calcium 8.8 (8.4-10.2) MG/DL Total Bilirubin 0.60 (0.20-1.30) MG/DL Icterus Index < 2 (0-7) AST 24 (14-36) U/L ALT 16 (1-35) U/L Alkaline Phosphatase 154 H (38-126) U/L Troponin I 0.019 (0-0.12) ng/ml NT-Pro-B Natriuret Pep 5000 H (0-175) pg/mL Total Protein 7.5 (6.3-8.2) g/dL Albumin 3.9 (3.5-5.0) g/dL Globulin 3.6 (2.4-3.6) G/DL Albumin/Globulin Ratio 1.1 (1.1-2.2) RATIO Lipase 47 (23-300) U/L Specimen Hemolysis < 15 (0-25) Ur Collection Type Urine Color (YELLOW) Urine Clarity Urine pH (5.0-8.0) Ur Specific [place] (1.015-1.025) Urine Protein (NEGATIVE) Urine Glucose (UA) (NEGATIVE) Urine Ketones (NEGATIVE) Urine Occult Blood (NEGATIVE) Urine Nitrate (NEGATIVE) Urine Bilirubin (NEGATIVE) Urine Urobilinogen (NORMAL) EU/DL Ur Leukocyte Esterase (NEGATIVE) Urine RBC (0-3) /HPF Urine WBC (0-5) /HPF Ur Squamous Epith Cells Urine Bacteria (NEGATIVE) Ur Culture Indicated? 05/11/18 Range/Units 13:16 WBC (4.5-11.0) T/MM3 RBC (4.00-5.20) M/MM3 Hgb (12-16) GM/DL Hct (36-46) % MCV (80-100) UM3 MCH (26-34) UUG MCHC (31-37) GM/DL RDW Std Deviation (36.9-50.2) FL Plt Count (130-400) T/MM3 MPV (9.4-12.4) UM3 Immature Gran % (Auto) (0.0-0.5) % Neut % (Auto) (33-66) % Lymph % (Auto) (23-45) % [place] % (Auto) (0-9.0) % Eos % (Auto) (0-4) % Baso % (Auto) (0-2) % Neut # (Auto) (1.8-7.7) T/MM3 Lymph # (Auto) (1-4.8) T/MM3 [place] # (Auto) (0-0.8) T/MM3 Eos # (Auto) (0-0.5) T/MM3 Baso # (Auto) (0-0.2) T/MM3 Abs Immat Gran (auto) (0.00-0.03) T/MM3 Turbidity (0-20) Sodium (136-146) MEQ/L Potassium (3.6-5) MEQ/L Chloride (98-107) MEQ/L Carbon Dioxide (22-30) MEQ/L Anion Gap (5-15) meq/L BUN (7-17) MG/DL Creatinine (0.7-1.2) mg/dL Estimated Creat Clear (>50) mL/min GFR Calculation (>60) mL/min BUN/Creatinine Ratio (6-26) RATIO Glucose (65-110) MG/DL Calculated Osmolality (261-280) MOSM/KG Calcium (8.4-10.2) MG/DL Total Bilirubin (0.20-1.30) MG/DL Icterus Index (0-7) AST (14-36) U/L ALT (1-35) U/L Alkaline Phosphatase (38-126) U/L Troponin I (0-0.12) ng/ml NT-Pro-B Natriuret Pep (0-175) pg/mL Total Protein (6.3-8.2) g/dL Albumin (3.5-5.0) g/dL Globulin (2.4-3.6) G/DL Albumin/Globulin Ratio (1.1-2.2) RATIO Lipase (23-300) U/L Specimen Hemolysis (0-25) Ur Collection Type Urine, void-cc/notcc Urine Color Yellow (YELLOW) Urine Clarity Clear Urine pH 6.0 (5.0-8.0) Ur Specific [place] 1.020 (1.015-1.025) Urine Protein 3+ A (NEGATIVE) Urine Glucose (UA) Negative (NEGATIVE) Urine Ketones Negative (NEGATIVE) Urine Occult Blood 1+ A (NEGATIVE) Urine Nitrate Negative (NEGATIVE) Urine Bilirubin Negative (NEGATIVE) Urine Urobilinogen 0.2 (NORMAL) EU/DL Ur Leukocyte Esterase Negative (NEGATIVE) Urine RBC 1-3 (0-3) /HPF Urine WBC 3-5 (0-5) /HPF Ur Squamous Epith Cells 5-10 Urine Bacteria 2+ H (NEGATIVE) Ur Culture Indicated? Cult not indicated - Radiology Data Chest x-ray: IMPRESSION: Mild congestive changes suggested. Abdominal x-ray: Declined by patient. - EKG Data EKG #1 EKG results narrative: Sinus rhythm with occasional PVC. 80 bpm. No STEMI. Critical Care Time Critical Care Time: Yes Total Critical Care Time: 37 Attestation: 37 minutes of critical care time was assessed to the patient due to complex medical decision making, repeated assessment at the bedside, and potential for decompensation. Patient remained on BiPAP during her emergency department stay and was admitted to the hospital for further evaluation and treatment. Critical care time was spent treating the patient, documenting the medical record, updating family, and making telephone calls on the patient's behalf. Disposition Clinical Impression: Hypoxia Disposition: To [facility] Acute Care Condition: Stable Time of Disposition: 13:00 - Seen By: physician
[2018-05-11] MEDS ORDERED: ALBUTEROL/IPRATROPIUM 2.5mg-0.5mg/3ml NEB AEROSOL ONE (11:25)
--- NOTE | 2018-05-11 12:13 | XRay Report ---
EXAM: XR chest 1V LOCATION OF DICTATION: [place] HISTORY: cough COMPARISON: March 20, 2018. FINDINGS: The heart is borderline enlarged. Central pulmonary vasculature is mildly prominent. Limited depth of inspiration. There is crowding of the interstitial lung markings. There are no consolidating opacities or pleural effusions. There is no pneumothorax. The osseous structures are within normal limits for the patient's age. IMPRESSION: Mild congestive changes suggested. .
[2018-05-11] MEDS ORDERED: FUROSEMIDE 40 MG/4 ML INJECTION IVP ONE (12:58)
[2018-05-11] MEDS: SALINE FLUSH 10ml SYRINGE IVF PRN ×2 (13:13→22:10)
--- NOTE | 2018-05-11 14:07 | History & Physical Report ---
History of Present Illness Date: 05/11/18 Chief complaint: Dyspnea, Abd bloating HPI: Sully is a 68 yr old female who is well known to the hospitalist services from previous admission. Patient reports her "problems" all started last following eating dinner at [facility]. She reports that her her had supper they're following that developed abdominal pain with vomiting. They both had symptoms. Following this, patient began to have abdominal distention with no bowel movement since 05/08/18. She reports that her breathing has become more difficult over the past 2-3 days and she attributes this to the amount of abdominal distention she is having. She reports her abdomen is diffusely painful and she feels that it needs to be "decompressed". She does report that her primary care provider felt that she was having bronchitis approximately one week ago and she did have a course of Levaquin and Tessalon Perles. Patient contacted EMS today for transportation to [facility] emergency room. EMS found patient to be on 5-6 liters by nasal cannula with room air saturations of 89%. Patient reports prior to this episode. She was down to room air during the day and 2 liters at night. In the emergency room further evaluation was performed. CBC revealed hemoglobin of 11.2, sodium was elevated at 147, creatinine 3.3 with BUN at 47 and it appears baseline creatinine is approximately 2.4-2.8. Troponin was 0.19, proBNP 5000. Urinalysis showed 3+ protein, otherwise unremarkable. Chest x-ray was overall unremarkable. Patient was requiring between 6 and 8 liters of oxygen while in the emergency room and was placed on BiPAP. Specialist services were contacted and accepted patient for inpatient admission for further evaluation and treatment. Review of Systems All systems PM: 10-point ROS was reviewed, no additional remarkable complaints except - Respiratory Respiratory: Present: dyspnea - Gastrointestinal Gastrointestinal: Present: as per HPI, abdominal pain, change in bowel habits, constipation Gastrointestinal Comments: Abdominal distension Past Medical History Medical History: Medical History (Last Reviewed 05/11/18 @ 14:09 by Awa Almazan, [place]) Chronic renal disease, stage IV Congestive heart failure Hyperlipidemia Hypertension Morbid obesity Paroxysmal atrial fibrillation Type II diabetes mellitus Surgical History: Exploratory laparotomy, lysis of adhesions and decompression colonoscopy. 11-13-2010 An[facility]. Sigmoid resection (many years prior to 2010) . Colonoscopy and decompression 11/26/2010 [facility]. Hysterectomy & bilateral salpingo-oophorectomy. Right bunionectomy. Right knee arthroscopy Family History: Parents of "old age". Brother with brain tumor. Sister with hypertension Brother with heart disease and diabetes Family History: As Above - Social History Smoking status: Never smoker Substance use type: does not use Alcohol intake frequency: does not drink Housing: house Household members: spouse Current residence: Apartment/Private Home Social history: Primary care provider-Tevin SAUCEDO Cardiology-Dr. Johnson Medications Home Medications Medication Instructions Recorded Confirmed Type Linaclotide [Linzess] 145 mcg PO DAILY 01/14/18 05/11/18 History Peg 3350 238 G Bottle [Miralax] 17 gm PO DAILY 01/14/18 05/11/18 History Amiodarone [Pacerone] 200 mg PO DAILY #30 tab 02/20/18 05/11/18 Rx Apixaban [Eliquis] 2.5 mg PO BID #60 tab 02/20/18 05/11/18 Rx Cholecalciferol [Vit. D-3] 1,000 unit PO DAILY tab 02/20/18 05/11/18 Rx Pantoprazole Tab [Protonix Tab] 40 mg PO ACB #30 tab 02/20/18 05/11/18 Rx Senna + Docusate [Senna Plus 2 tab PO DAILY tab 02/20/18 05/11/18 Rx Tablet] Simethicone [Mylicon] 80 mg PO Q2H PRN tab.chew 02/20/18 05/11/18 Rx Acetaminophen [Acetaminophen Extra 1,000 mg PO TID PRN 03/17/18 05/11/18 History Strength] Furosemide [Lasix 40 mg Tab] 40 mg PO DAILY 05/11/18 05/11/18 History Hydrocodone/APAP 7.5/325 [[place] 1 tab PO Q8HR PRN MDD 3 05/11/18 05/11/18 History 7.5/325] Metoprolol Tartrate [Lopressor] 75 mg PO BIDWM 05/11/18 05/11/18 History NIFEdipine XL [Procardia Xl] 90 mg PO DAILY 05/11/18 05/11/18 History Allergies Allergy/AdvReac Type Severity Reaction Status Date / Time doxazosin Allergy Mild Verified 05/11/18 11:04 lisinopril AdvReac Intermediate VOMITTING Verified 05/11/18 11:04 promethazine [From Phenergan] AdvReac Intermediate Muscle Verified 05/11/18 11: 04 Cramping gabapentin AdvReac Unknown Verified 05/11/18 11:04 cephalexin AdvReac Nausea Verified 05/11/18 11:05 Exam Vital Signs: Temperature 96.8 F 05/11/18 10:45 Pulse Rate 80 05/11/18 13:00 Respiratory Rate 26 H 05/11/18 13:00 Blood Pressure 171/77 H 05/11/18 13:00 Pulse Oximetry 94 05/11/18 13:00 Height/Weight/BMI: Height 1.7 m Weight 175.2 kg - Constitutional Present: mild distress, well nourished, well developed - Routine HEENT Exam Eye: Present: EOMI ENT: Present: mucous membranes moist, dentition normal - Routine Respiratory Exam Present: CTA bilaterally, diminished air movement. Absent: wheezes - Routine Cardiovascular Exam Present: RRR, S1, S2. Absent: murmur - Routine Abdominal Exam Present: tenderness (diffuse), distended, firm. Absent: soft, normoactive bowel sounds (hypoactive) - Routine Extremities Exam Present: edema - Routine Skin Exam Present: intact, dry, warm - Routine Neurological Exam Present: alert, oriented X3, CN II-XII intact, moving all extremities - Routine Psychiatric Exam Present: normal affect, cooperative Results - Labs CBC & Chem 7: 05/11/18 11:27 05/11/18 11:27 Assessment and Plan (1) Acute on chronic respiratory failure with hypoxemia Current visit: No Status: Resolved (2) Acute on chronic kidney failure Problem details: Stage IV CKD Current visit: No Status: Acute Assessment and Plan: Impression Acute respiratory failure with hypoxia- requiring 6-8 liters and Bipap on admission Abdominal pain, abdominal distention- Acute Acute on chronic kidney disease. It Disaster Recovery Manager 3.3, (Baseline 2.4-2.8) Chronic respiratory failure- acquires 2 liters of oxygen at night Hypertension. Paroxysmal atrial fibrillation Type II diabetes- diet controlled Hyperlipidemia Chronic back pain. Morbid obesity-BMI 60 Anemia, normocytic-chronic Hypernatremia-POA Plan Inpatient admission to Dr. Clarke for the above Continue to work on oxygenation, BiPAP/Vapotherm as needed. Will obtain KUB and upright of abdomen to evaluate distension. May require further imaging or CT She is requesting a Fleets emena to "relieve pressure". Will await Xray results first She feels that her dyspnea is secondary to acute abdominal distention. Will continue home medications expect for Miralax, Linzess and senna plus while evaluation abdominal distension Home Lasix, placed on hold as patient chronically takes 40 milligrams daily. Will discuss more aggressive diuresing with attending. Weight- 03/17/18- 158KG. Weight today- 175kg- 37 lb weight gain in 7 weeks. ? fluid retention? Monitor renal function, electrolytes, Daily weights, and intake/output Continue on Procardia, Lopressor, amiodarone and Eliquis Will monitor on Cardiac telemetry given history of atrial fibrillation SCDs to bilateral lower extremity for DVT prophylaxis Will discuss further orders and plan of care with attending, Dr. Clarke At time of discharge medical care will return to primary care provider, Tevin SAUCEDO DVT Prophylaxis: SCD's, Eliquis GI Prophylaxis: Protonix Resuscitation Status: Do Not Intubate - Physician Narrative Physician: Susan Clarke MD Narrative: Date: 05/11/18 Time: 1809 I have independently evaluated and examined this patient. I reviewed the chart, the patient's history, and the TREE FARMER/PA's documented findings as above. We discussed and formulated the assessment and plan as above with additions as below: Mrs. Arshad was sitting shortly after arriving on the floor and reevaluated after abdominal films were obtained when her was present. She describes increasing dyspnea with worsening hypoxia over the past 2-3 days after not having a bowel movement for 3-4 days with accompanying increased abdominal distention. reports increased concern about her abdomen and that he considered giving her an enema at home; he reports that when her abdomen became very distended last spring in IRU she required several enemas for relief. She was on Vapotherm on a trial basis but he has brought in home BiPAP unit/mask and she was using nasal BiPAP when seen most recently. Anxious female, weight up 5 or 10 kg from prior discharge on March 20 depending on which admission weight today is believed. Diminished breath sounds throughout, no wheezing appreciated Regular rhythm, diminished heart tones Abdomen obese, distended, mild tenderness without guarding; diminished bowel sounds Chest x-ray reviewed by myself demonstrating cardiomegaly, no focal infiltrates , mild increased interstitial markings but no pulmonary edema KUBs also reviewed by myself revealing significant colonic air suggesting megacolon or colonic ileus. Pro-BNP 5000-slightly higher than discharge in early March. Creatinine up from baseline of 2.6-2.8. Acute on chronic hypoxic respiratory failure Colonic ileus Chronic diastolic heart failure Obesity hypoventilation syndrome/MITCH Acute on chronic renal failure Patient and both correlate worsening respiratory symptoms with abdominal distention/constipation although the latter is not evident on films. Enema to be given tonight and aggressive bowel regimen started in conjunction with ongoing diuresis. Patient reluctant to consider CT as she cannot lie flat and does not fit well in CT scanner. CODE STATUS readdressed with patient and her as she was listed as limited code "no mechanical interventions" on arrival and was previously DO NOT RESUSCITATE last admission. Patient clearly states she does not wish to be intubated or on a ventilator. When asked about CPR or cardioversion she indicated those interventions were okay but if they didn't work she should not be put on a ventilator. Order clarified to DO NOT INTUBATE. Hospital Course Summary Disclaimer: The visit summary below is not to be considered part of the above Progress Note. Hospital Course: Impression Acute respiratory failure with hypoxia- requiring 6-8 liters and Bipap on admission Abdominal pain, abdominal distention- Acute Acute on chronic kidney disease. It Disaster Recovery Manager 3.3, (Baseline 2.4-2.8) Chronic respiratory failure- acquires 2 liters of oxygen at night Hypertension. Paroxysmal atrial fibrillation Type II diabetes- diet controlled Hyperlipidemia Chronic back pain. Morbid obesity-BMI 60 Plan Inpatient admission to Dr. Clarke for the above Continue to work on oxygenation, BiPAP/Vapotherm as needed. Will obtain KUB and upright of abdomen to evaluate distension. May require further imaging or CT She is requesting a Fleets emena to "relieve pressure". Will await Xray results first She feels that her dyspnea is secondary to acute abdominal distention. Will continue home medications expect for Miralax, Linzess and senna plus while evaluation abdominal distension Home Lasix, placed on hold as patient chronically takes 40 milligrams daily. Will discuss more aggressive diuresing with attending. Weight- 03/17/18- 158KG. Weight today- 175kg- 37 lb weight gain in 7 weeks. ? fluid retention? Monitor renal function, electrolytes, Daily weights, and intake/output Continue on Procardia, Lopressor, amiodarone and Eliquis Will monitor on Cardiac telemetry given history of atrial fibrillation SCDs to bilateral lower extremity for DVT prophylaxis Will discuss further orders and plan of care with attending, Dr. Clarke At time of discharge medical care will return to primary care provider, Tevin SAUCEDO
[2018-05-11] MEDS ORDERED: SIMETHICONE 80 MG CHEWABLE TABLET PO PRN (14:17)
[2018-05-11] MEDS ORDERED: TRAMADOL 50 MG TABLET PO PRN (14:17)
[2018-05-11 14:48] VITALS: BMI 58.6
[2018-05-11] MEDS: HYDROCODONE/APAP 5mg/325mg TABLET PO PRN ×2 (15:11→21:13)
--- NOTE | 2018-05-11 15:32 | XRay Report ---
EXAM: XR KUB w upright DICTATION LOCATION: [place] INDICATION: abd pain/ bloating COMPARISON STUDY: None available. FINDINGS: Mild interstitial opacities in the lower lung zones. Abdomen: Gas distended colonic bowel loops are again demonstrated. There is no evidence for bowel obstruction or free intraperitoneal air. No abnormal radiopacities overlying the abdomen. The lung bases are clear. Skeletal Structures: There is moderate to marked osteoarthrosis of the bilateral hip joints. Mild to moderate spondylosis of the thoracolumbar spine. IMPRESSION: 1. Gas distended colonic bowel loops similar to the previous study be secondary to chronic megacolon or ileus. .
[2018-05-11] MEDS: ALBUTEROL/IPRATROPIUM 2.5mg-0.5mg/3ml NEB AEROSOL SCH ×2 (19:23)
[2018-05-11] MEDS: APIXABAN 2.5 MG TABLET PO SCH (21:07)
[2018-05-11] MEDS: SENNA + DOCUSATE TABLET PO SCH (21:07)
[2018-05-11] MEDS: Bisacodyl EC TAB 5 MG TABLET PO SCH (21:15)
[2018-05-11] MEDS: FUROSEMIDE 40 MG/4 ML INJECTION IVP SCH (22:10)
[2018-05-11] MEDS ORDERED: FALL RISK - PHARMACY CONSULT MC ONE (23:24)
[2018-05-12] MEDS: HYDRALAZINE 20 MG/ML INJECTION IVP PRN (00:03)
[2018-05-12] MEDS: ACETAMINOPHEN 500 MG TABLET PO PRN (02:24)
[2018-05-12] MEDS: ALBUTEROL/IPRATROPIUM 2.5mg-0.5mg/3ml NEB AEROSOL SCH ×4 (06:40→19:20)
[2018-05-12] MEDS: PANTOPRAZOLE 40 MG TABLET PO SCH (06:54)
[2018-05-12] MEDS: APIXABAN 2.5 MG TABLET PO SCH ×2 (08:28→21:28)
[2018-05-12] MEDS: SENNA + DOCUSATE TABLET PO SCH ×2 (08:28→21:24)
[2018-05-12] MEDS: Bisacodyl EC TAB 5 MG TABLET PO SCH ×2 (08:29→21:25)
[2018-05-12] MEDS: FUROSEMIDE 40 MG/4 ML INJECTION IVP SCH (08:29)
[2018-05-12] MEDS: HYDROCODONE/APAP 5mg/325mg TABLET PO PRN ×2 (08:29→21:37)
[2018-05-12] MEDS: LINACLOTIDE 145 MCG CAPSULE PO SCH (08:29)
[2018-05-12] MEDS: AMIODARONE 200 MG TABLET PO SCH (08:29)
[2018-05-12] MEDS: POLYETHYL GLYCOL 3350 17gm PACKET PO SCH (08:29)
--- NOTE | 2018-05-12 11:20 | Progress Note ---
- Date 05/12/18 Subjective: Sully was resting with the lights off. She said she had a terrible night because of diuresis. She otherwise feels about the same. Her breathing might be slightly better. She still feels bloated and constipated. She only had a small bowel movement with the Fleet's enema yesterday. She denies nausea/vomiting. She denies chest pain. Objective Vital signs: Temperature 99.6 F 05/12/18 11:05 Pulse Rate 76 05/12/18 11:05 Respiratory Rate 14 05/12/18 11:05 Blood Pressure 150/87 H 05/12/18 11:05 Pulse Oximetry 94 05/12/18 11:05 Height/Weight/BMI: Height 1.7 m Weight 169.7 kg Body Mass Index 58.6 - Constitutional Present: no acute distress, morbidly obese - Routine HEENT Exam Head: Present: normocephalic Eye: Absent: conjunctival icterus, scleral injection Comments: Nasal BiPAP in place - Routine Respiratory Exam Present: decreased breath sounds - Routine Cardiovascular Exam Present: RRR, S1, S2 - Routine Abdominal Exam Present: tenderness (mild diffuse), distended (mild). Absent: normoactive bowel sounds (hyperactive) - Routine Extremities Exam Present: edema (trace BLE), pulses intact - Routine Skin Exam Present: intact, dry, warm - Routine Neurological Exam Present: alert, oriented X3, normal speech - Routine Psychiatric Exam Present: normal thought process, cooperative Results - Labs CBC & Chem 7: 05/12/18 05:40 05/12/18 05:40 Assessment and Plan (1) Acute on chronic respiratory failure with hypoxemia Current visit: No Status: Resolved (2) Acute on chronic kidney failure Problem details: Stage IV CKD Current visit: No Status: Acute Assessment and Plan: Impression Acute respiratory failure with hypoxia- requiring 6-8 liters and BiPAP on admission Abdominal pain, abdominal distention- Acute Acute on chronic kidney disease. Cut Filer 3.3, (Baseline 2.4-2.8) Hypernatremia-POA Chronic respiratory failure- acquires 2 liters of oxygen at night Hypertension. Paroxysmal atrial fibrillation Type II diabetes- diet controlled Hyperlipidemia Chronic back pain. Morbid obesity-BMI 60 Anemia, normocytic-chronic Plan Continue IV Lasix though will discuss dosing with attending; renal function slightly worse today with creatinine of 3.4, >1 mg/dL above baseline. CXR only showing mild congestion. Continue BiPAP. Weight decreased (169.7 kg) but still above her prior discharge weight of 158 kg. Continue aggressive bowel regimen. She remains mildly distended and tender today. CMP done yesterday showing elevated alk phos, normal AST/ALT/bili, and normal lipase. Consider changing diet to NPO or clear liquids. DVT Prophylaxis: Eliquis GI Prophylaxis: Protonix Resuscitation Status: Do Not Intubate - Physician Narrative Physician: Susan Clarke MD Narrative: Date: 05/12/18 Time: 1700 I have independently evaluated and examined this patient. I reviewed the chart, the patient's history, and the RING CUTTER LATHE OPERATOR/PA's documented findings as above. We discussed and formulated the assessment and plan as above with additions as below: Mrs. Arshad was seen midafternoon and reported persistent severe abdominal pain despite having 2 small bowel movements. She doesn't feel she's passing any gas and reports that the pressure in her abdomen is ongoing. Today she describes having previously had a decompressive "sigmoidoscopy" during the hospitalization in [place] a number of years ago. Continues to have difficulty breathing and increased oxygen demand. Using BiPAP nearly continually. Uncomfortable female, diminished airflow with decreased breath sounds throughout Abdomen soft, distended but not taut, mild diffuse tenderness, bowel sounds present with variable frequency Discussed with Dr. Michel who will see patient in consultation; recommended proceeding with Gastrografin enema to exclude obstructing pathology. Subsequently discussed with Dr. Reese and they will attempt to do study this afternoon. LDH/lactic acid both obtained to exclude ischemic bowel-neither elevated. Telemetry reviewed by myself-sinus rhythm with occasional to frequent PVCs and short run of bigeminy. IV narcotics added if needed due to discomfort. Hospital Course Summary Disclaimer: The visit summary below is not to be considered part of the above Progress Note. Hospital Course: 05/11/18 Impression Acute respiratory failure with hypoxia- requiring 6-8 liters and Bipap on admission Abdominal pain, abdominal distention- Acute Acute on chronic kidney disease. Cut Filer 3.3, (Baseline 2.4-2.8) Chronic respiratory failure- acquires 2 liters of oxygen at night Hypertension. Paroxysmal atrial fibrillation Type II diabetes- diet controlled Hyperlipidemia Chronic back pain. Morbid obesity-BMI 60 Plan Inpatient admission to Dr. Clarke for the above Continue to work on oxygenation, BiPAP/Vapotherm as needed. Will obtain KUB and upright of abdomen to evaluate distension. May require further imaging or CT She is requesting a Fleets emena to "relieve pressure". Will await Xray results first She feels that her dyspnea is secondary to acute abdominal distention. Will continue home medications expect for Miralax, Linzess and senna plus while evaluation abdominal distension Home Lasix, placed on hold as patient chronically takes 40 milligrams daily. Will discuss more aggressive diuresing with attending. Weight- 03/17/18- 158KG. Weight today- 175kg- 37 lb weight gain in 7 weeks. ? fluid retention? Monitor renal function, electrolytes, Daily weights, and intake/output Continue on Procardia, Lopressor, amiodarone and Eliquis Will monitor on Cardiac telemetry given history of atrial fibrillation SCDs to bilateral lower extremity for DVT prophylaxis Will discuss further orders and plan of care with attending, Dr. Clarke At time of discharge medical care will return to primary care provider, Tevin SAUCEDO 05/12/18 Continue IV Lasix though will discuss dosing with attending; renal function slightly worse today with creatinine of 3.4, >1 mg/dL above baseline. CXR only showing mild congestion. Continue BiPAP. Weight decreased (169.7 kg) but still above her prior discharge weight of 158 kg. Continue aggressive bowel regimen. She remains mildly distended and tender today. CMP done yesterday showing elevated alk phos, normal AST/ALT/bili, and normal lipase. Change to clear liquid diet. Dr. Michel consulted; lactic acid/LDH normal-ischemic bowel unlikely. For Gastrografin enema to exclude obstructing pathology.
[2018-05-12] MEDS ORDERED: HYDROMORPHONE 2 MG/ML INJECTION IVP PRN (15:40)
[2018-05-12] MEDS ORDERED: DIATRIZOATE MEGLUMINE/SOD. (66%/10%) 120ml SOLN ONE ×2 (16:40→16:47)
--- NOTE | 2018-05-12 18:46 | General Surgery Consult Note ---
Consult date: 05/12/18 Attending Physician: Susan Clarke MD [facility] Patient Stated Medical History Peripheral Neuropathy Yes: feet Congestive Heart Failure Yes Hypertension Yes Sleep Apnea Yes Diabetes Mellitus Type 2 Yes: CONTROLLED Hx Incontinence Yes Hx Renal Disease Yes Hx Urinary Tract Infection Yes Other Yes: CKD stage 3 Other Musculoskeletal Yes: chronic knee Cellulitis Yes: old DX Sepsis Yes: old DX Blood Transfusions Yes: when she had hysterectomy Clinic Medical History (Last Reviewed 05/11/18 @ 14:09 by Awa Almazan APRN) Chronic renal disease, stage IV (Acute Medical) Congestive heart failure (Acute Medical) Hyperlipidemia (Acute Medical) Hypertension (Acute Medical) Morbid obesity (Acute Medical) Paroxysmal atrial fibrillation (Acute Medical) Type II diabetes mellitus (Acute Medical) Medical History Updates: Type II diabetes. Chronic kidney disease-stage IV. Obesity hypoventilation syndrome. Hypercholesterolemia. Hypertension. Hyperlipidemia. Chronic diastolic heart failure. Chronic back pain. Morbid obesity- BMI 53 Surgical History: -Exploratory laparotomy, lysis of adhesions and decompression colonoscopy. 2 Anand. -Sigmoid resection (many years prior to 2010 ). -Small bowel resection in the "for bowel". -Colonoscopy and decompression 11/26/2010 [facility]. -Hysterectomy & bilateral salpingo- oophorectomy. -Right bunionectomy. -Right knee arthroscopy 1994. -ECHO EF 62 % 01/14/2017 [facility] Family History Updates: Brother - brain tumor. Brother DM. sister - HTN. Some ovarian cancer and breast cancer "in the family." - Social History Smoking status: Never smoker Substance use type: does not use Alcohol intake: never Alcohol intake frequency: does not drink Housing: house Household members: spouse Current occupational status: retired Current residence: Apartment/Private Home Medications Home Medications Medication Instructions Recorded Confirmed Type Linaclotide [Linzess] 145 mcg PO DAILY 01/14/18 05/11/18 History Peg 3350 238 G Bottle [Miralax] 17 gm PO DAILY 01/14/18 05/11/18 History Amiodarone [Pacerone] 200 mg PO DAILY #30 tab 02/20/18 05/11/18 Rx Apixaban [Eliquis] 2.5 mg PO BID #60 tab 02/20/18 05/11/18 Rx Cholecalciferol [Vit. D-3] 1,000 unit PO DAILY tab 02/20/18 05/11/18 Rx Pantoprazole Tab [Protonix Tab] 40 mg PO ACB #30 tab 02/20/18 05/11/18 Rx Senna + Docusate [Senna Plus 2 tab PO DAILY tab 02/20/18 05/11/18 Rx Tablet] Simethicone [Mylicon] 80 mg PO Q2H PRN tab.chew 02/20/18 05/11/18 Rx Acetaminophen [Acetaminophen Extra 1,000 mg PO TID PRN 03/17/18 05/11/18 History Strength] Furosemide [Lasix 40 mg Tab] 40 mg PO DAILY 05/11/18 05/11/18 History Hydrocodone/APAP 7.5/325 [[place] 1 tab PO Q8HR PRN MDD 3 05/11/18 05/11/18 History 7.5/325] Metoprolol Tartrate [Lopressor] 75 mg PO BIDWM 05/11/18 05/11/18 History NIFEdipine XL [Procardia Xl] 90 mg PO DAILY 05/11/18 05/11/18 History Allergies Allergy/AdvReac Type Severity Reaction Status Date / Time doxazosin Allergy Mild Verified 05/11/18 11:04 lisinopril AdvReac Intermediate VOMITTING Verified 05/11/18 11:04 promethazine [From Phenergan] AdvReac Intermediate Muscle Verified 05/11/18 11: 04 Cramping gabapentin AdvReac Unknown Verified 05/11/18 11:04 cephalexin AdvReac Nausea Verified 05/11/18 11:05 Review of Systems 10-point ROS: negative except for HPI and the following: - Eyes/Ears/Nose/Throat Eyes: Present: vision problems (wears glasses) - Cardiovascular Cardiovascular: Present: palpitations - Respiratory Respiratory: Present: difficulty breathing (with any exertion), use of CPAP, use of oxygen (mostly at night) - Gastrointestinal Gastrointestinal: Present: constipation - Musculoskeletal Musculoskeletal: Present: back pain, joint pain (when gout flares up) - Neurological Neurological: Present: muscle weakness - Endocrine Endocrine: Present: diabetes - Hematologic/Lymphatic Hematologic/Lymphatic: Present: easy bruising, use of blood thinners (Elaquis) - Vital Signs Last Vital Signs Temp 98.9 F 05/12/18 15:00 Pulse 81 05/12/18 16:24 Resp 16 05/12/18 15:00 BP 180/81 H 05/12/18 15:00 Pulse Ox 96 05/12/18 15:00 - Laboratory Result Diagrams: 05/12/18 05:40 05/12/18 05:40 General Surgery Results - Results Labs: 05/12/18 05:40 05/12/18 05:40
[2018-05-12] MEDS ORDERED: SENNA LIQUID (X-PREP) 74 ML PO ONE (19:18)
--- NOTE | 2018-05-12 20:56 | Consultation ---
DATE OF CONSULTATION 05/12/2018 FINDINGS Mrs. Arshad is a 68-year-old female whom I was asked to see as a new patient/ consult this evening. Mrs. Arshad's was present this evening who also provided some of the clinical history. Apparently about two weeks ago they state that they had eaten "bad chicken" from [employer]. They state they both became ill and had a component of some nausea, vomiting and diarrhea. The patient states that she has not been feeling well over the last couple of weeks. Patient states that a few days ago she began to notice that her abdomen was beginning to swell. Patient states that as a result of this "swelling of her belly" she developed increasing shortness of breath. Patient states that she actually presented to our facility as a result of her increasing shortness of breath. Patient states that she has been experiencing a component of some abdominal discomfort. She denies severe abdominal pain. This discomfort is mostly within her right midabdomen per her report. She denies specific aggravating or alleviating symptomatology in regards to her right mid abdominal pain. Currently the patient denies any element of nausea or vomiting. Her primary complaint is that of shortness of breath. PAST MEDICAL HISTORY, PAST SURGICAL HISTORY, MEDICATIONS, ALLERGIES, SOCIAL HISTORY, FAMILY HISTORY, REVIEW OF SYSTEMS Performed by my nurse practitioner, Keith Snell APRN. PHYSICAL EXAMINATION GENERAL: Mrs. Arshad is a 68-year-old female who this evening did not appear to be in acute distress. VITAL SIGNS: Temperature 98.9, pulse 81, respirations 16, blood pressure 180/81 , SAO2 96% on 45% FIO2 BiPAP. HEENT: Normocephalic. Pupils are equally round and react to light and accommodation. CHEST: Clear to auscultation bilaterally. HEART: Regular rate and rhythm. Normal S1 and S2 without gallops, murmurs or clicks. ABDOMEN: Visualization of the abdomen reveals it to be quite protuberant in nature, i.e., the patient has a component of obesity. Additionally, upon visualization one can see a well-healed prior midline surgical incision. There is no element of prominence along her prior midline incision. Palpation along her midline incision did not reveal any underlying mass to suggest an incisional hernia. Palpation of the abdomen revealed it to be soft throughout. The patient did complain of some mild discomfort with firm palpation in the right lower quadrant and right midabdomen. There, however, was no element of guarding or rebound tenderness. I could not appreciate evidence for some hepatosplenomegaly although examination was somewhat limited as a result of the patient's obesity. EXTREMITIES: Without clubbing, cyanosis, or edema. NEURO: Cranial nerves II-XII grossly intact. Patient is without focal motor or sensory deficits. LABORATORY/RADIOGRAPHIC EVALUATION The patient had a CBC yesterday and her white count was 10,000. White count remains stable today at 10.7. Hemoglobin stable at 10.2. CMP obtained today and found to be essentially within normal limits with the exception that her BUN and creatinine are elevated at 46.0 and 3.4, respectively. The patient has a known history for chronic renal insufficiency. A UA was obtained and she was found to have 2+ bacteria. Culture was not obtained. Radiographically she did have a chest x-ray obtained on May 11. Mild congestive changes were noted. KUB and upright was obtained yesterday that did reveal gas-distended colonic bowel loops similar to a prior study, felt to be perhaps secondary to chronic megacolon or ileus. I did review her plain films and she was found to have a component of some colonic distention although it is difficult to really ascertain the full extent of her colonic distention given her obesity. I did not feel that her colon was massively dilated although it does appear fairly dilated within the transverse colon region. I have also reviewed prior CT scans that revealed a similar appearance with distended colon. ASSESSMENT 68-year-old female with significant medical comorbidities including chronic renal disease, congestive heart failure, hyperlipidemia, hypertension, morbid obesity, proximal atrial fibrillation and type 2 diabetes mellitus who presents with increasing shortness of breath and increasing abdominal distention. Patient found to have a component of colonic distention upon radiograph evaluation. The patient is without an acute surgical abdomen. PLAN Earlier today I had requested the patient go ahead and obtain a Gastrografin enema to rule out a potential volvulus of the colon or a colonic obstruction. When the patient was laid supine so that a Gastrografin enema could be obtained she was unable to "breathe" per her report. I did receive a call from Radiology stating that her oxygen saturation was dropping and that Respiratory Therapy did not feel that it was safe to proceed with her Gastrografin enema. Gastrografin enema therefore was aborted. I informed the patient that if she is not able to tolerate lying flat I did not feel that she would tolerate colonoscopy requiring sedation which would further decrease her respiratory status. At this point in time I would recommend that we continue with some oral cathartics as already ordered and follow her from a clinical standpoint. Will repeat KUB and upright tomorrow morning. I do not feel the patient has an acute surgical abdomen at this time. Hopefully with some oral cathartics and suppositories the patient's bowel activity will resume on its own behalf. Will continue to follow along in the patient's care. ELE
[2018-05-13] MEDS: HYDRALAZINE 20 MG/ML INJECTION IVP PRN (02:12)
[2018-05-13] MEDS: SALINE FLUSH 10ml SYRINGE IVF PRN (02:54)
[2018-05-13] MEDS: PANTOPRAZOLE 40 MG TABLET PO SCH (06:28)
[2018-05-13] MEDS: ALBUTEROL/IPRATROPIUM 2.5mg-0.5mg/3ml NEB AEROSOL SCH ×4 (06:40→19:55)
[2018-05-13] MEDS: APIXABAN 2.5 MG TABLET PO SCH ×2 (08:42→21:26)
[2018-05-13] MEDS: Bisacodyl EC TAB 5 MG TABLET PO SCH ×2 (08:42→21:26)
[2018-05-13] MEDS: SENNA + DOCUSATE TABLET PO SCH ×2 (08:43→21:27)
[2018-05-13] MEDS: AMIODARONE 200 MG TABLET PO SCH (08:43)
[2018-05-13] MEDS: LINACLOTIDE 145 MCG CAPSULE PO SCH (08:44)
[2018-05-13] MEDS: POLYETHYL GLYCOL 3350 17gm PACKET PO SCH ×2 (08:44→09:23)
[2018-05-13] MEDS: HYDROCODONE/APAP 5mg/325mg TABLET PO PRN ×2 (08:48→21:33)
[2018-05-13] MEDS ORDERED: FUROSEMIDE 40 MG/4 ML INJECTION IVP SCH (09:00)
--- NOTE | 2018-05-13 09:07 | XRay Report ---
Indication: F/U possible Lito's PROCEDURE: XR KUB w upright: Encounter: Initial Comparison: May 11, 2018 and February 09, 2018 Findings: No gross free air. Left lower lobe airspace disease. Markedly dilated gas-filled colon present measuring up to 13 cm in diameter in the left upper quadrant. No abnormally dilated small bowel loops appreciated. Gas is present to the level of the rectum. Appearance is similar to an February 09, 2018 comparison, although the transverse colon is less dilated currently. Impression: Marked dilatation of the splenic flexure region of the colon with less dilatation of the transverse colon compared to an January 2018 exam. 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 .
[2018-05-13] MEDS: BENZONATATE 200 MG CAPSULE PO PRN ×2 (09:21→15:57)
--- NOTE | 2018-05-13 11:58 | Progress Note ---
- Date 05/13/18 Subjective: Sully is seen this morning in follow-up. She is resting in bed with her at bedside. Nursing staff reports Dell. He has had 3 large loose bowel movements today. Her morning MiraLAX was placed on hold However, she was given senna prior to stools. She feels that her abdominal distention has improved and abdomen is much more soft than previously and denies having any nausea. He continues to utilize BiPAP consistently. Objective Vital signs: Temperature 98.4 F 05/13/18 10:50 Pulse Rate 75 05/13/18 10:50 Respiratory Rate 22 05/13/18 10:50 Blood Pressure 125/67 05/13/18 10:50 Pulse Oximetry 93 05/13/18 10:50 Height/Weight/BMI: Height 1.7 m Weight 167.3 kg Body Mass Index 58.6 - Constitutional Present: no acute distress, well nourished, well developed - Routine HEENT Exam Eye: Present: EOMI ENT: Present: mucous membranes moist, dentition normal - Routine Respiratory Exam Present: diminished air movement. Absent: wheezes - Routine Cardiovascular Exam Present: RRR, S1, S2. Absent: murmur - Routine Abdominal Exam Present: soft, non distended. Absent: normoactive bowel sounds (hypoactive), tenderness - Routine Extremities Exam Present: edema (trace bilateral lower), normal capillary refill - Routine Skin Exam Present: intact, dry, warm - Routine Neurological Exam Present: alert, oriented X3, CN II-XII intact - Routine Lymphatic Exam Lymphatic: Absent: adenopathy - Routine Psychiatric Exam Present: normal affect Results - Labs CBC & Chem 7: 05/13/18 04:30 05/13/18 04:30 Assessment and Plan (1) Acute on chronic respiratory failure with hypoxemia Current visit: No Status: Resolved (2) Acute on chronic kidney failure Problem details: Stage IV CKD Current visit: No Status: Acute Assessment and Plan: Impression Acute respiratory failure with hypoxia- requiring 6-8 liters and BiPAP on admission Abdominal pain, abdominal distention- Acute Acute on chronic kidney disease. Feed Manager 3.3, (Baseline 2.4-2.8) Hypernatremia-POA Chronic respiratory failure- acquires 2 liters of oxygen at night Hypertension. Paroxysmal atrial fibrillation Type II diabetes- diet controlled Hyperlipidemia Chronic back pain. Morbid obesity-BMI 60 Anemia, normocytic-chronic Plan Lasix is placed on hold for tomorrow. BUN is up to 53. However, reviewing past records. She's had a BUN over 100 in the past. We will give her 1 liter of normal saline as she is likely mildly intravascularly dry. Will have to monitor carefully for evidence of fluid overload. Weight trended down from admission Continue to monitor stool output as she has had 3 large loose stools today. Overall abdomen appears to be less distended or painful. Appreciate surgical consultation by Dr. Michel. Continue to work on hypoxia- patient currently utilizing BiPAP and is hesitant to use nasal canula Monitor labs- Hgb 9.8- down from 11.2. Case discussed with attending, Dr Clarke DVT Prophylaxis: Eliquis GI Prophylaxis: Protonix - Physician Narrative Physician: Susan Clarke MD Narrative: Date: 05/11/18 Time: 1809 I have independently evaluated and examined this patient. I reviewed the chart, the patient's history, and the ASSOCIATE DESIGNER/PA's documented findings as above. We discussed and formulated the assessment and plan as above with additions as below: Sully was seen late afternoon with her and daughter at bedside. She was on BiPAP and in bed indicating that she has not been able to take BiPAP off because she gets very short of breath when she does so. She continues to require higher flow oxygen than at baseline. She denies ongoing abdominal pain or pressure on her lungs after having at least 4 large bowel movements overnight. On home BiPAP with oxygen at 10 L, head of bed elevated approximately 25 Flat affect Diminished airflow but anterior lungs clear Abdomen obese but soft and minimally tender KUBs reviewed by myself-less gaseous distention in the transverse colon but persistent gaseous distention at the splenic flexure where the colon measures 13 cm-may represent chronic colonic pseudoobstruction. Discussed with Dr. Michel earlier today; no interventions anticipated. Asked Sully to consider sitting upright at a minimum or preferably getting out of bed if nursing can assist with Miguelito lift; needs to retain functional abilities she has gained since discharge. Respiratory status will benefit from time out of bed as well. Discussed with nursing and family. Reassess renal function in a.m., chest x-ray in a.m. Hospital Course Summary Disclaimer: The visit summary below is not to be considered part of the above Progress Note. Hospital Course: 05/11/18 Impression Acute respiratory failure with hypoxia- requiring 6-8 liters and Bipap on admission Abdominal pain, abdominal distention- Acute Acute on chronic kidney disease. Feed Manager 3.3, (Baseline 2.4-2.8) Chronic respiratory failure- acquires 2 liters of oxygen at night Hypertension. Paroxysmal atrial fibrillation Type II diabetes- diet controlled Hyperlipidemia Chronic back pain. Morbid obesity-BMI 60 Plan Inpatient admission to Dr. Clarke for the above Continue to work on oxygenation, BiPAP/Vapotherm as needed. Will obtain KUB and upright of abdomen to evaluate distension. May require further imaging or CT She is requesting a Fleets emena to "relieve pressure". Will await Xray results first She feels that her dyspnea is secondary to acute abdominal distention. Will continue home medications expect for Miralax, Linzess and senna plus while evaluation abdominal distension Home Lasix, placed on hold as patient chronically takes 40 milligrams daily. Will discuss more aggressive diuresing with attending. Weight- 03/17/18- 158KG. Weight today- 175kg- 37 lb weight gain in 7 weeks. ? fluid retention? Monitor renal function, electrolytes, Daily weights, and intake/output Continue on Procardia, Lopressor, amiodarone and Eliquis Will monitor on Cardiac telemetry given history of atrial fibrillation SCDs to bilateral lower extremity for DVT prophylaxis Will discuss further orders and plan of care with attending, Dr. Clarke At time of discharge medical care will return to primary care provider, Tevin SAUCEDO 05/12/18 Continue IV Lasix though will discuss dosing with attending; renal function slightly worse today with creatinine of 3.4, >1 mg/dL above baseline. CXR only showing mild congestion. Continue BiPAP. Weight decreased (169.7 kg) but still above her prior discharge weight of 158 kg. Continue aggressive bowel regimen. She remains mildly distended and tender today. CMP done yesterday showing elevated alk phos, normal AST/ALT/bili, and normal lipase. Change to clear liquid diet. Dr. Michel consulted; lactic acid/LDH normal-ischemic bowel unlikely. For Gastrografin enema to exclude obstructing pathology. 05/13/18 Lasix is placed on hold for tomorrow. BUN is up to 53. However, reviewing past records. She's had a BUN over 100 in the past. We will give her 1 liter of normal saline as she is likely mildly intravascularly dry. Will have to monitor carefully for evidence of fluid overload. Weight trended down from admission Continue to monitor stool output as she has had 3 large loose stools today. Overall abdomen appears to be less distended or painful. Appreciate surgical consultation by Dr. Michel. Continue to work on hypoxia- patient currently utilizing BiPAP and is hesitant to use nasal canula Monitor labs- Hgb 9.8- down from 11.2. Case discussed with attending, Dr Clarke
[2018-05-13] MEDS: NS 1,000 ML IV SCH ×2 (12:02→22:25)
--- NOTE | 2018-05-13 13:12 | Progress Note ---
DATE OF SERVICE 05/13/2018 FINDINGS Mrs. Arshad was seen today on rounds. She was actually on the commode having a bowel movement upon entering the room. Patient states that her abdominal pain has markedly improved. She states that she is having several loose stools. The patient is questioning me when she is able to "go home." PHYSICAL EXAM VITAL SIGNS: Temperature 98.4, pulse 75, respirations 22, blood pressure 125/67 , SAO2 93% on BiPAP of 45% FIO2 and rate of 10. CHEST: Clear to auscultation bilaterally. HEART: Regular rate and rhythm. Normal S1 and S2 without gallops, murmurs or clicks. ABDOMEN: Soft, essentially nontender today. The patient does not have any element of guarding or rebound. LABORATORY/RADIOGRAPHIC EVALUATION The patient had a CBC today and her white count remains stable at 8.3. Hemoglobin stable at 9.8. BMP obtained and her BUN and creatinine are elevated at 53.0 and 3.2, respectively. Patient with known chronic renal insufficiency/chronic renal disease. ASSESSMENT 68-year-old female with multiple medical comorbidities who has a radiographic history consistent with colonic pseudo-obstruction. Patient doing well currently from a clinical standpoint. PLAN I informed the patient that I am pleased with her progress. I am pleased that she is now having bowel movements and that her abdominal pain has resolved. I have gone back and reviewed prior CT scan from earlier this year and her colon at that time several months ago was also found to be significantly dilated. I do believe that this colonic distention is more of a chronic entity than that of an acute process. I informed Mrs. Arshad that as a general rule in this type of situation we would proceed with endoscopic evaluation to rule out a near- obstructing colonic lesion as a potential etiology for this pseudo-obstruction pattern noted on CT scan. Given her significant medical comorbidities, however , I believe that the risk of the procedure would outweigh the benefits. Even if one was able to find an abnormality within her colon I do not believe that she would be a surgical candidate. I did have a long discussion with the patient and she seemed to understand and agree with the proposed plan at this time of a conservative approach and not proceeding with endoscopic evaluation. ELE
[2018-05-13] MEDS: ACETAMINOPHEN 500 MG TABLET PO PRN (13:28)
[2018-05-14] MEDS: PANTOPRAZOLE 40 MG TABLET PO SCH (06:14)
[2018-05-14] MEDS: ACETAMINOPHEN 500 MG TABLET PO PRN (06:17)
--- NOTE | 2018-05-14 08:22 | General Surgery Progress Note ---
Subjective Patient reports: bowel movement (loose) Narrative: She is in a [id number] lift assist device being transferred from bed to chair. Staff getting her "cleaned up" from loose bowel movement. She states she is feeling less abd discomfort/distention. Denies nausea. - Vital Signs Last Vital Signs Temp 97.9 F 05/14/18 03:00 Pulse 98 05/14/18 03:00 Resp 18 05/14/18 03:00 BP 141/73 H 05/14/18 03:00 Pulse Ox 95 05/14/18 03:00 - Laboratory Result Diagrams: 05/14/18 03:55 05/14/18 03:55 - Radiology KUB yesterday PROCEDURE: XR KUB w upright: Encounter: Initial Comparison: May 11, 2018 and February 09, 2018 Findings: No gross free air. Left lower lobe airspace disease. Markedly dilated gas-filled colon present measuring up to 13 cm in diameter in the left upper quadrant. No abnormally dilated small bowel loops appreciated. Gas is present to the level of the rectum. Appearance is similar to an February 09, 2018 comparison, although the transverse colon is less dilated currently. Impression: Marked dilatation of the splenic flexure region of the colon with less dilatation of the transverse colon compared to an January 2018 exam. 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 - Abnormal Exam Abdominal: obese (morbidly) - Normal Exam General: awake, alert, oriented, no acute distress Respiratory: no labored breathing Assessment and Plan (1) Chronic intestinal pseudo-obstruction Current Visit: Yes Status: Chronic Plan: KUB yesterday with less distention than the January comparison. She has had stools since the KUB and feels somewhat better. Hospital Course Summary Disclaimer: The visit summary below is not to be considered part of the above Progress Note. Hospital Course: 05/11/18 Impression Acute respiratory failure with hypoxia- requiring 6-8 liters and Bipap on admission Abdominal pain, abdominal distention- Acute Acute on chronic kidney disease. Freelance Translator 3.3, (Baseline 2.4-2.8) Chronic respiratory failure- acquires 2 liters of oxygen at night Hypertension. Paroxysmal atrial fibrillation Type II diabetes- diet controlled Hyperlipidemia Chronic back pain. Morbid obesity-BMI 60 Plan Inpatient admission to Dr. Clarke for the above Continue to work on oxygenation, BiPAP/Vapotherm as needed. Will obtain KUB and upright of abdomen to evaluate distension. May require further imaging or CT She is requesting a Fleets emena to "relieve pressure". Will await Xray results first She feels that her dyspnea is secondary to acute abdominal distention. Will continue home medications expect for Miralax, Linzess and senna plus while evaluation abdominal distension Home Lasix, placed on hold as patient chronically takes 40 milligrams daily. Will discuss more aggressive diuresing with attending. Weight- 03/17/18- 158KG. Weight today- 175kg- 37 lb weight gain in 7 weeks. ? fluid retention? Monitor renal function, electrolytes, Daily weights, and intake/output Continue on Procardia, Lopressor, amiodarone and Eliquis Will monitor on Cardiac telemetry given history of atrial fibrillation SCDs to bilateral lower extremity for DVT prophylaxis Will discuss further orders and plan of care with attending, Dr. Clarke At time of discharge medical care will return to primary care provider, Tevin SAUCEDO 05/12/18 Continue IV Lasix though will discuss dosing with attending; renal function slightly worse today with creatinine of 3.4, >1 mg/dL above baseline. CXR only showing mild congestion. Continue BiPAP. Weight decreased (169.7 kg) but still above her prior discharge weight of 158 kg. Continue aggressive bowel regimen. She remains mildly distended and tender today. CMP done yesterday showing elevated alk phos, normal AST/ALT/bili, and normal lipase. Change to clear liquid diet. Dr. Michel consulted; lactic acid/LDH normal-ischemic bowel unlikely. For Gastrografin enema to exclude obstructing pathology. 05/13/18 Lasix is placed on hold for tomorrow. BUN is up to 53. However, reviewing past records. She's had a BUN over 100 in the past. We will give her 1 liter of normal saline as she is likely mildly intravascularly dry. Will have to monitor carefully for evidence of fluid overload. Weight trended down from admission Continue to monitor stool output as she has had 3 large loose stools today. Overall abdomen appears to be less distended or painful. Appreciate surgical consultation by Dr. Michel. Continue to work on hypoxia- patient currently utilizing BiPAP and is hesitant to use nasal canula Monitor labs- Hgb 9.8- down from 11.2. Case discussed with attending, Dr Clarke
[2018-05-14] MEDS: ALBUTEROL/IPRATROPIUM 2.5mg-0.5mg/3ml NEB AEROSOL SCH ×4 (08:32→20:25)
[2018-05-14] MEDS: APIXABAN 2.5 MG TABLET PO SCH ×2 (08:34→21:21)
[2018-05-14] MEDS: LINACLOTIDE 145 MCG CAPSULE PO SCH (08:34)
[2018-05-14] MEDS: Bisacodyl EC TAB 5 MG TABLET PO SCH ×2 (08:34→21:21)
[2018-05-14] MEDS: AMIODARONE 200 MG TABLET PO SCH (08:35)
[2018-05-14] MEDS: SENNA + DOCUSATE TABLET PO SCH ×2 (08:35→21:21)
[2018-05-14] MEDS: POLYETHYL GLYCOL 3350 17gm PACKET PO SCH (08:36)
--- NOTE | 2018-05-14 08:36 | XRay Report ---
Indication: hypoxia PROCEDURE: XR chest 1V: Encounter: Initial Comparison: May 11, 2018 Findings: Lungs are stable in appearance with mild vascular congestion. No lobar pneumonia. No gross pleural effusion or pneumothorax. Heart size and mediastinal contours are stable. Impression: Stable chest with mild edema. .
[2018-05-14] MEDS: BENZONATATE 200 MG CAPSULE PO PRN (09:43)
--- NOTE | 2018-05-14 09:44 | Progress Note ---
- Date 05/14/18 Subjective: Sully is seen today in follow up. She is up in the chair this morning and is currently on 15 liters of oxygen by nasal cannula to maintain adequate saturations. Overall denies having pain or feeling more short of breath and normal. She continues to deny abdominal pain, distention or nausea. She had approximately 5 bowel movements yesterday. No bowel movements overnight. Weight down 3 kilograms today. Objective Vital signs: Temperature 98.0 F 05/14/18 07:45 Pulse Rate 82 05/14/18 07:45 Respiratory Rate 18 05/14/18 08:32 Blood Pressure 140/70 H 05/14/18 07:45 Pulse Oximetry 98 05/14/18 09:20 Height/Weight/BMI: Height 1.7 m Weight 164.2 kg Body Mass Index 58.6 - Constitutional Present: no acute distress, well nourished, well developed - Routine HEENT Exam Eye: Present: EOMI ENT: Present: mucous membranes moist, dentition normal - Routine Respiratory Exam Present: CTA bilaterally. Absent: wheezes - Routine Cardiovascular Exam Present: RRR. Absent: murmur - Routine Abdominal Exam Present: soft, normoactive bowel sounds, non distended. Absent: tenderness - Routine Extremities Exam Present: normal capillary refill - Routine Skin Exam Present: intact, dry, warm - Routine Neurological Exam Present: alert, oriented X3, CN II-XII intact, moving all extremities - Routine Lymphatic Exam Lymphatic: Absent: adenopathy - Routine Psychiatric Exam Present: normal affect, normal thought process, cooperative Results - Labs CBC & Chem 7: 05/14/18 03:55 05/14/18 03:55 Assessment and Plan (1) Acute on chronic respiratory failure with hypoxemia Current visit: No Status: Resolved (2) Acute on chronic kidney failure Problem details: Stage IV CKD Current visit: No Status: Acute Assessment and Plan: Impression Acute respiratory failure with hypoxia- requiring 6-8 liters and BiPAP on admission Abdominal pain, abdominal distention- Acute Acute on chronic kidney disease. Sql Application Developer 3.3, (Baseline 2.4-2.8) Hypernatremia-POA Chronic respiratory failure- acquires 2 liters of oxygen at night Hypertension. Paroxysmal atrial fibrillation Type II diabetes- diet controlled Hyperlipidemia Chronic back pain. Morbid obesity-BMI 60 Anemia, normocytic-chronic Plan Lasix dose for today on hold. Will discuss resuming with attending. Weight continues to trend down. Continue to work on weaning down oxygen- She was on room air during the day prior May need to consider pulmonary consultation tomorrow once available Continue to monitor stool output. Appreciate surgical team consultation Renal function remains elevated- BUN 51, Sql Application Developer 3.3. DVT Prophylaxis: Eliquis GI Prophylaxis: Protonix Resuscitation Status: Do Not Intubate - Physician Narrative Physician: Susan Clarke MD Narrative: Date: 05/14/18 Time: 1700 I have independently evaluated and examined this patient. I reviewed the chart, the patient's history, and the K9 HANDLER/PA's documented findings as above. We discussed and formulated the assessment and plan as above with additions as below: Mrs. Arshad denied dyspnea but reported nausea and vomiting when seen late this morning. She remained on 12 L high flow nasal cannula when up in a chair prior to being seen by myself and was back on BiPAP with 11 L when I visited. She expressed significant depressive symptoms indicating she didn't know why she had bothered working so hard to get better if everything was given a get worse again so quickly. She expressed concern that she couldn't continue to struggle as she has. She wants to go home; I asked the patient if she was to consider hospice which she rejected indicating she's had hospice support at home and didn 't feel they helped her. I subsequently met with the patient, her , and her home health provider. The patient expressed similar negative feelings about her ability to recover. I advised the 3 that there is nothing new this admission but that she has continued chronic kidney, lung, and heart disease which are not significantly changed from her prior admission. The patient's home health provider felt she still has increased fluid at the ankles compared to recent baseline although the patient thinks she is dry. asked if he could discharge home tomorrow and I expressed concern that her oxygen level is borderline for what they are capable of providing and that she'll be at high risk for return to the hospital but that discharge can be entertained if she can safely oxygenate with her home system. I asked that they discuss how she wishes to proceed and let me know. Patient's respirations were nonlabored with diminished airflow throughout Abdomen was soft, bowel sounds present although diminished time of my exam, obese, nontender Flat affect, tearful intermittently Chest x-ray reviewed by myself-mild vascular congestion-unchanged from 3 days ago. Lengthy discussion with patient, her , and home health provider. Acute GI symptoms have stabilized other than nausea today which I suspect is due to emotional distress patient is experiencing. There hasn't been no change in her chronic medical conditions overall but she has combined cardiac, pulmonary, and renal disease and will continue to have complex fluid management which minor changes in her lifestyle or minor illnesses will potentially resultant decompensation. The patient's contacted me after I left the room asking that they discharge home tomorrow indicating that Sully has decided she doesn't want to keep fighting this and that she just wants to go home and be comfortable. He is unsure if they wish to resume hospice at this time; I advised that hospice will become necessary at some time. He requested EMS transport home. 45 min in patient care today, majority in conversation with patient/. Hospital Course Summary Disclaimer: The visit summary below is not to be considered part of the above Progress Note. Hospital Course: 05/11/18 Impression Acute respiratory failure with hypoxia- requiring 6-8 liters and Bipap on admission Abdominal pain, abdominal distention- Acute Acute on chronic kidney disease. Sql Application Developer 3.3, (Baseline 2.4-2.8) Chronic respiratory failure- acquires 2 liters of oxygen at night Hypertension. Paroxysmal atrial fibrillation Type II diabetes- diet controlled Hyperlipidemia Chronic back pain. Morbid obesity-BMI 60 Plan Inpatient admission to Dr. Clarke for the above Continue to work on oxygenation, BiPAP/Vapotherm as needed. Will obtain KUB and upright of abdomen to evaluate distension. May require further imaging or CT She is requesting a Fleets emena to "relieve pressure". Will await Xray results first She feels that her dyspnea is secondary to acute abdominal distention. Will continue home medications expect for Miralax, Linzess and senna plus while evaluation abdominal distension Home Lasix, placed on hold as patient chronically takes 40 milligrams daily. Will discuss more aggressive diuresing with attending. Weight- 03/17/18- 158KG. Weight today- 175kg- 37 lb weight gain in 7 weeks. ? fluid retention? Monitor renal function, electrolytes, Daily weights, and intake/output Continue on Procardia, Lopressor, amiodarone and Eliquis Will monitor on Cardiac telemetry given history of atrial fibrillation SCDs to bilateral lower extremity for DVT prophylaxis Will discuss further orders and plan of care with attending, Dr. Clarke At time of discharge medical care will return to primary care provider, Tevin SAUCEDO 05/12/18 Continue IV Lasix though will discuss dosing with attending; renal function slightly worse today with creatinine of 3.4, >1 mg/dL above baseline. CXR only showing mild congestion. Continue BiPAP. Weight decreased (169.7 kg) but still above her prior discharge weight of 158 kg. Continue aggressive bowel regimen. She remains mildly distended and tender today. CMP done yesterday showing elevated alk phos, normal AST/ALT/bili, and normal lipase. Change to clear liquid diet. Dr. Michel consulted; lactic acid/LDH normal-ischemic bowel unlikely. For Gastrografin enema to exclude obstructing pathology. 05/13/18 Lasix is placed on hold for tomorrow. BUN is up to 53. However, reviewing past records. She's had a BUN over 100 in the past. We will give her 1 liter of normal saline as she is likely mildly intravascularly dry. Will have to monitor carefully for evidence of fluid overload. Weight trended down from admission Continue to monitor stool output as she has had 3 large loose stools today. Overall abdomen appears to be less distended or painful. Appreciate surgical consultation by Dr. Michel. Continue to work on hypoxia- patient currently utilizing BiPAP and is hesitant to use nasal canula Monitor labs- Hgb 9.8- down from 11.2. Case discussed with attending, Dr Clarke 05/14/18 Lasix dose for today on hold. Will discuss resuming with attending. Weight continues to trend down. Continue to work on weaning down oxygen- She was on room air during the day prior May need to consider pulmonary consultation tomorrow once available Continue to monitor stool output. Appreciate surgical team consultation Renal function remains elevated- BUN 51, Sql Application Developer 3.3.
[2018-05-14] MEDS ORDERED: ONDANSETRON 4 MG/2 ML INJECTION IVP PRN (12:12)
--- NOTE | 2018-05-14 15:33 | Progress Note ---
DATE OF SERVICE 05/14/2018 FINDINGS Ms. Arshad was seen earlier today on rounds. She was upright in the chair and not in bed. She was no longer on BiPAP and was on nasal cannula. She denied abdominal pain when questioned. She states she is feeling significantly better. She questioned when she was going to be able to be discharged to home. PHYSICAL EXAM VITAL SIGNS: Afebrile, normotensive. Last recorded vitals include temperature 98.0, pulse 71, respirations 18, blood pressure 138/72. SAO2 was recorded at 92 % on BiPAP with a rate of 10. As stated earlier, when I saw the patient she was on O2 nasal cannula. LABORATORY/RADIOGRAPHIC EVALUATION Patient had a CBC today and her white count is stable at 8.3. Hemoglobin is 10.2. BMP was obtained and her creatinine and BUN remain elevated at 3.3 and 51.0. Her renal function, however, is stable. 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 Patient currently doing well from a surgical standpoint. PLAN The patient remains to be without an acute surgical abdomen. She has had numerous bowel movements. Her abdomen this morning is completely soft, nontender. Will go ahead and sign off the patient's care at this point in time from a surgical standpoint. If the patient would develop recurrent abdominal pain or additional surgical concerns, please do not hesitate to recontact me if necessary. ELE
[2018-05-14] MEDS: HYDROCODONE/APAP 5mg/325mg TABLET PO PRN (21:20)
[2018-05-14] MEDS: SALINE FLUSH 10ml SYRINGE IVF PRN (23:19)
[2018-05-15] MEDS: PANTOPRAZOLE 40 MG TABLET PO SCH (06:24)
[2018-05-15] MEDS: ALBUTEROL/IPRATROPIUM 2.5mg-0.5mg/3ml NEB AEROSOL SCH ×2 (08:40→11:30)
[2018-05-15] MEDS: ACETAMINOPHEN 500 MG TABLET PO PRN (09:42)
[2018-05-15] MEDS: APIXABAN 2.5 MG TABLET PO SCH (09:44)
[2018-05-15] MEDS: Bisacodyl EC TAB 5 MG TABLET PO SCH (09:45)
[2018-05-15] MEDS: SENNA + DOCUSATE TABLET PO SCH (09:45)
[2018-05-15] MEDS: AMIODARONE 200 MG TABLET PO SCH (09:45)
[2018-05-15] MEDS: LINACLOTIDE 145 MCG CAPSULE PO SCH ×2 (09:45→09:53)
[2018-05-15] MEDS: POLYETHYL GLYCOL 3350 17gm PACKET PO SCH (09:49)
[2018-05-15] MEDS ORDERED: FUROSEMIDE 40 MG/4 ML INJECTION IVP SCH (10:22)
[2018-05-15] MEDS ORDERED: HYDROCODONE/APAP 7.5 MG/325 MG TABLET PO PRN (10:44)
--- NOTE | 2018-05-15 11:33 | Discharge Summary ---
Discharge Information Date of admission: 05/11/18 13:20 Anticipated date of discharge: 05/15/18 Attending Physician: Susan Clarke MD Primary care physician: SHERYL Dee Consults: General Surgeon-Alo Michel - Discharge Diagnosis (1) Acute on chronic respiratory failure with hypoxemia Status: Resolved (2) Acute on chronic kidney failure Status: Acute Acute respiratory failure with hypoxia Abdominal pain, abdominal distention- Acute Acute on chronic kidney disease. Drilling Superintendent 3.3, (Baseline 2.4-2.8) Hypernatremia-POA Chronic respiratory failure Hypertension. Paroxysmal atrial fibrillation Type II diabetes- diet controlled Hyperlipidemia Chronic back pain. Morbid obesity-BMI 60 Anemia, normocytic-chronic Depression, situational - Procedures Procedures: None - Laboratory Labs: 05/15/18 04:09 05/15/18 04:09 Laboratory Tests 05/11/18 05/12/18 05/13/18 11:27 05:40 04:30 Creatinine 3.3 H 3.4 H 3.2 H 05/14/18 05/15/18 03:55 04:09 Creatinine 3.3 H 3.6 H D Laboratory Tests 05/12/18 15:28 Plasma Lactate 0.8 - Microbiology None - Radiology Radiology: 05/11/18-chest x-ray- Mild congestive changes suggested. 05/11/[id number]: 1. Gas distended colonic bowel loops similar to the previous study be secondary to chronic megacolon or ileus. 05/13/18-KUB upright- Impression: Marked dilatation of the splenic flexure region of the colon with less dilatation of the transverse colon compared to an January 2018 exam. 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 -chest [id number] appearance with mild edema - Pathology None History of Present Illness HPI: Sully is a 68 yr old female who is well known to the hospitalist services from previous admission. Patient reports her "problems" all started last following eating dinner at [facility]. She reports that her her had supper they're following that developed abdominal pain with vomiting. They both had symptoms. Following this, patient began to have abdominal distention with no bowel movement since 05/08/18. She reports that her breathing has become more difficult over the past 2-3 days and she attributes this to the amount of abdominal distention she is having. She reports her abdomen is diffusely painful and she feels that it needs to be "decompressed". She does report that her primary care provider felt that she was having bronchitis approximately one week ago and she did have a course of Levaquin and Tessalon Perles. Patient contacted EMS today for transportation to [facility] emergency room. EMS found patient to be on 5-6 liters by nasal cannula with room air saturations of 89%. Patient reports prior to this episode. She was down to room air during the day and 2 liters at night. In the emergency room further evaluation was performed. CBC revealed hemoglobin of 11.2, sodium was elevated at 147, creatinine 3.3 with BUN at 47 and it appears baseline creatinine is approximately 2.4-2.8. Troponin was 0.19, proBNP 5000. Urinalysis showed 3+ protein, otherwise unremarkable. Chest x-ray was overall unremarkable. Patient was requiring between 6 and 8 liters of oxygen while in the emergency room and was placed on BiPAP. Specialist services were contacted and accepted patient for inpatient admission for further evaluation and treatment. Objective Vital signs: Temperature 96.0 F L 05/15/18 07:00 Pulse Rate 67 05/15/18 08:00 Respiratory Rate 20 05/15/18 08:45 Blood Pressure 143/68 H 05/15/18 07:00 Pulse Oximetry 95 05/15/18 08:45 Height/Weight/BMI: Height 1.7 m Weight 167.7 kg Body Mass Index 58.6 - Constitutional Present: no acute distress, well nourished, well developed - Routine HEENT Exam Eye: Present: EOMI ENT: Present: mucous membranes moist, dentition normal - Routine Respiratory Exam Present: diminished air movement. Absent: wheezes - Routine Cardiovascular Exam Present: RRR, S1, S2. Absent: murmur - Routine Abdominal Exam Present: soft, normoactive bowel sounds, non distended. Absent: tenderness - Routine Extremities Exam Present: edema - Routine Skin Exam Present: intact, dry, warm - Routine Neurological Exam Present: alert, oriented X3, CN II-XII intact - Routine Lymphatic Exam Lymphatic: Absent: adenopathy - Routine Psychiatric Exam Present: normal thought process, cooperative Hospital Course This is a general summary of the patient's hospital course. For more details refer to the complete medical record. Hospital course: 05/11/18 Inpatient admission for increasing hypoxia/abdominal pain/volume overload. Continue to work on oxygenation, BiPAP/Vapotherm as needed. Will obtain KUB and upright of abdomen to evaluate distension. May require further imaging or CT She is requesting a Fleets enema to "relieve pressure". Will await Xray results first She feels that her dyspnea is secondary to acute abdominal distention. Will continue home medications expect for Miralax, Linzess and senna plus while evaluation abdominal distension Home Lasix, placed on hold as patient chronically takes 40 milligrams daily. Will discuss more aggressive diuresing with attending. Weight- 03/17/18- 158KG. Weight today- 175kg- 37 lb weight gain in 7 weeks. Monitor renal function, electrolytes, Daily weights, and intake/output Continue on Procardia, Lopressor, amiodarone and Eliquis Will monitor on Cardiac telemetry given history of atrial fibrillation SCDs to bilateral lower extremity for DVT prophylaxis At time of discharge medical care will return to primary care provider, Tevin SAUCEDO 05/12/18 Continue IV Lasix though will discuss dosing with attending; renal function slightly worse today with creatinine of 3.4, >1 mg/dL above baseline. CXR only showing mild congestion. Continue BiPAP. Weight decreased (169.7 kg) but still above her prior discharge weight of 158 kg. Continue aggressive bowel regimen. She remains mildly distended and tender today. CMP done yesterday showing elevated alk phos, normal AST/ALT/bili, and normal lipase. Change to clear liquid diet. Dr. Michel consulted; lactic acid/LDH normal-ischemic bowel unlikely. For Gastrografin enema to exclude obstructing pathology--> patient unable to lie flat for Gastrografin, study canceled. 05/13/18 Lasix is placed on hold. BUN is up to 53. However, reviewing past records BUN significantly higher during prior admission. We will give her 1 liter of normal saline as she is likely mildly intravascularly dry. Will have to monitor carefully for evidence of fluid overload. Weight trended down from admission Continue to monitor stool output as she has had 3 large loose stools today. Overall abdomen appears to be less distended or painful. Appreciate surgical consultation by Dr. Michel. Continue to work on hypoxia- patient currently utilizing BiPAP and is hesitant to use nasal canula Monitor labs- Hgb 9.8- down from 11.2. 05/14/18 Lasix dose for today on hold due to nausea/vomiting as AM. Weight continues to trend down. Continues to have bowel movements, abdomen soft. Renal function remains elevated- BUN 51, Drilling Superintendent 3.3. Lengthy discussion with patient, her , and home health provider. Acute GI symptoms have stabilized other than nausea today which I suspect is due to emotional distress patient is experiencing. There hasn't been no change in her chronic medical conditions overall but she has combined cardiac, pulmonary, and renal disease and will continue to have complex fluid management which minor changes in her lifestyle or minor illnesses will potentially resultant decompensation. The patient's contacted me after I left the room asking that they discharge home tomorrow indicating that Sully has decided she doesn't want to keep fighting this and that she just wants to go home and be comfortable. He is unsure if they wish to resume hospice at this time; I advised that hospice will become necessary at some time. 05/15/18-discharge Overall Sully his GI symptoms have improved and stabilized. She has continued to verbalize her wishes to be discharged home and reports will continue to follow her weights and diuretics with her primary care provider, Dr. Garcia. She will continue on home oxygen as she already has this set up. She will continue with home health support and will return on her normal home medications. Case discussed with attending, Dr Clarke. Time spent with patient: discharge greater than 30 minutes Resuscitation Status: Do Not Intubate Discharge Plan - Discharge Disposition Discharge Date: 05/15/18 Disposition: 01 Discharged Home, Self-Care *Condition: Stable Reason For Visit (Visit label in EMR): Hypoxia,CHF - Discharge Medications *Discharge Medications: New Benzonatate [Tessalon Perles] 200 mg PO TID PRN #20 cap PRN Reason: cough Continue Peg 3350 [address] Bottle [Miralax] 17 gm PO DAILY Amiodarone [Pacerone] 200 mg PO DAILY #30 tab Apixaban [Eliquis] 2.5 mg PO BID #60 tab Senna + Docusate [Senna Plus Tablet] 2 tab PO DAILY tab Simethicone [Mylicon] 80 mg PO Q2H PRN tab.chew PRN Reason: Gas Furosemide [Lasix 40 mg Tab] 40 mg PO DAILY Metoprolol Tartrate [Lopressor] 75 mg PO BIDWM Cholecalciferol [Vit. D-3] 1,000 unit PO DAILY tab Pantoprazole Tab [Protonix Tab] 40 mg PO ACB #30 tab Acetaminophen [Acetaminophen Extra Strength] 1,000 mg PO TID PRN PRN Reason: Pain NIFEdipine XL [Procardia Xl] 90 mg PO DAILY Hydrocodone/APAP 7.5/325 [[place] 7.5/325] 1 tab PO Q8HR PRN MDD 3 PRN Reason: Pain Discontinued Linaclotide [Linzess] 145 mcg PO DAILY - Discharge Packet/Instructions *Diet: Carb cons ADA *Activity: as tolerated *Pain Management/Treatment: [place] as needed *Wound Care: N/A Additional Instructions: Continue home medications. monitor weight and edema. Titrate oxygen to keep sats > 92%. Contact PCP for further diuresising recommendations. Use home health as previous *Expected Signs/Symptoms: continued dyspnea *Notify Physician if: fever, worsening SOA or other concerns *During Business Hours Contact: Dr Tevin Garcia *After Business Hours Contact: Dr Tevin Garcia *Pending Lab/Results: No Pending Lab - Referrals/Follow Up *Referrals/Follow Up: Tevin Garcia PA [Primary Care Provider] - (family states dr. garcia will come to their home to see patient, and they will set it up.) - Patient Handouts Patient Handouts: [facility] [place] Congestive Heart Failure, Hypoxia (GEN) - Dismissal Complete Discharge Instructions are:: Complete Physician Narrative - Narrative Physician: Susan Clarke MD Attestation Narrative: Date: 05/15/18 Time: 1650 I have independently evaluated and examined this patient. I reviewed the chart, the patient's history, and the PRESSURE STEAMER TENDER/PA's documented findings as above. We discussed and formulated the assessment and plan as above with additions as below: Sully was seen with her this morning; she complained of loose stools and was frustrated that Dulcolax was offered to her this morning. Lasix resumed this a.m. in anticipation of discharge. Has remained on 10-12 L oxygen overnight with oxygen sat this morning 92%-chart reflects 12 L but was set on 10 L when I was in the room. Flat affect, diminished air flow but breath sounds are clear anteriorly, abdomen soft, nontender, obese Patient continues to request discharge home; reports he believe she does not wish to be rehospitalized although he asked about resuscitative efforts at home. I recommended that they reconsider full DO NOT RESUSCITATE order in light of multiple chronic medical conditions and patient's decision to discharge home at this time. EMS transportation home being coordinated to permit continue high flow oxygen required.
[2018-05-15 11:55] VITALS: BP 143/62; PULSE 70; RESP 18; TEMP 97.8; O2SAT 96
[2018-05-15] MEDS: BENZONATATE 200 MG CAPSULE PO PRN (12:18)
[2018-05-16] MEDS ORDERED: FUROSEMIDE 40 MG TABLET PO SCH (09:00)
== END 2018-05-15 14:30 | disposition home health service (06) | DRG 189 ==
LOC: ED 10:42 → EDHOLD 13:20 → MED 14:00
PROVIDERS: ADMIT Internal Medicine; ATTEND Internal Medicine